=== PATIENT | male | born 1965 | race Caucasian/White ===

== ENCOUNTER 2021-12-28 10:54 | Emergency (ER) | payer OTHER, SELFPAY ==
[2021-12-28 10:55] VITALS: BP 169/102; PULSE 90; RESP 16; TEMP 36.3; O2SAT 99; BMI 27.4
--- NOTE | 2021-12-28 11:07 | CT_ITS ---
STUDY: CT ABDOMEN AND PELVIS WITH CONTRAST REASON FOR EXAM: Male, 56 years old. History of right inguinal hernia. RADIATION DOSAGE (If Supplied By Facility): CTDIvol = ( 12.71 ) mGy, DLP = ( 1342.89 ) mGycm TECHNIQUE: Transaxial images were obtained from the dome of the diaphragm to the symphysis pubis without oral contrast. IV 100mL Isovue-300 was administered. Sagittal and coronal images were reconstructed. Individualized dose optimization techniques were used for this CT. COMPARISON: None. FINDINGS: The visualized lung bases are unremarkable. The visualized portions of the heart are within normal limits. Normal liver. Normal gallbladder and extrahepatic biliary system. Normal spleen. Normal pancreas. Normal bilateral adrenal glands. Normal right kidney. Normal left kidney. There is a small hiatal hernia. Normal small intestine. There are multiple colonic diverticula consistent with diverticulosis. The appendix is visualized and appears normal. Normal abdominal aorta. Normal inferior vena cava. Normal retroperitoneum. A RENNER catheter is seen within the decompressed urinary bladder. Moderate sized right inguinal hernia containing nondistended small bowel loops. Disc space narrowing in the spondylosis in the lower dorsal spine. 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 CT/Abdomen/Pelvis W IV Cont ONLY IMPRESSION: Moderate sized right inguinal area containing nondilated small bowel loops.. Electronically Signed: Michele Larson MD at 12:50 EST ,
--- NOTE | 2021-12-28 11:09 | EDS_ITS ---
HPI HPI - GI History of Present Illness Chief Complaint: Abd Pain Narrative Narrative: Patient presents with suprapubic abdominal pain in the area of his right-sided inguinal hernia that he has had since this morning. He has had previous hernia repair remotely, but he and his states that it ripped. He has not had a repair for years and is not currently following up with a surgeon. He states he had a normal bowel movement this morning. He denies any fevers or chills. No nausea or vomiting. No hematuria or dysuria. He is complaining of sharp pain mainly in the suprapubic area from his bellybutton towards his groin. He does have known hernia in the right inguinal area. No exacerbating or alleviating factors. PFSH PFSH Medical History no medical history Home Medications tamsulosin 0.4 mg capsule (Flomax) 0.4 mg PO DAILY #14 caps 12/28/21 [Rx Last Taken Unknown] Allergy/AdvReac Type Severity Reaction Status Date / Time shellfish derived Allergy Anaphylaxis Verified 12/28/21 10:56 Surgical History no surgical history Social History Smoking Status: Never smoker ROS ROS ED ROS Narrative Constitutional: No fever, no chills. HEENT: No sore throat. No neck pain. No loss of vision. No rhinorrhea. Cardiovascular: No chest pain. No palpitations. No pedal edema. Respiratory: No cough, no shortness of breath. Abdominal: Positive suprapubic/periumbilical to groin abdominal pain. No nausea. No vomiting. Genitourinary: No dysuria. No hematuria. Musculoskeletal: No myalgias. No arthralgias. Neurologic: No headaches. No dizziness. No lightheadedness. Skin: No rash. No change in color. Psychiatric: No depression. No anxiety. EXAM Physical Exam Narrative Exam Narrative: Afebrile. Vital signs noted. HEENT: Normocephalic. Atraumatic. PERRL, EOMI. Neck soft and supple. No point tenderness or step off. Cardiovascular: Regular rate and rhythm. No murmurs, rubs, or gallops appreciated. Respiratory: No tachypnea. Lungs clear to auscultation bilaterally. Gastrointestinal: Abdomen soft, tenderness between umbilicus and top of penis, with normoactive bowel sounds. No rebound or guarding. No tenderness in right inguinal area. Genitourinary: No testicular tenderness or scrotal hernia palpated. Neurological: Awake. Alert. Nonfocal, nonlateralizing. Skin: No rash. Normal color. No pallor. Musculoskeletal: No pedal edema. Full range of motion extremities. Const Vital Signs: 12/28/21 10:55 12/28/21 12:07 Temperature 97.4 F L Temperature Source Temporal Pulse Rate 90 90 Respiratory Rate 16 16 Blood Pressure 169/102 H 142/98 H Blood Pressure Mean 124 112 Pulse Ox 99 99 Oxygen Delivery Method Room Air Room Air MDM MDM MDM Narrative Medical decision making narrative: Comprehensive work-up was pursued. I do feel CT imaging is indicated. He was administered normal saline bolus of 1 L along with morphine and ondansetron. Nurse performed a bladder scan. There were 750 mL of urine contained within. Chatman catheter was inserted with good relief of the patient's symptoms. He has a slightly elevated white count of 12.1 which I think is nonspecific, hemoglobin normal at 15.3 with hematocrit 41.9. Normal platelet count of 316. CMP is grossly normal except for glucose appropriately elevated at 109 with a normal anion gap of 10. LFTs are grossly normal with a normal alk phos of 74. Urinalysis shows no evidence of infection, 0 white cells with 5 ketones. I do not feel antibiotics are indicated. CT of the abdomen and pelvis with IV contrast does show the right inguinal hernia that is moderately sized. Of note, it was noted that there is collapse of T10. Patient denies any significant back pain but cannot necessarily recall a distinct injury to his back, but he has had multiple injuries over the years according to the patient and his . I do not feel that this is of any clinical significance currently. Dr. Ly has seen the patient in the emergency department and the hernia has reduced itself while the patient was lying supine. Patient states that he had initially let his hernia go for a long time before the initial repair, and states this is normal for him that when he will lie supine, his hernia will be reduced. I do feel that his abdominal pain was secondary to his urinary retention. He will be placed on Flomax and recommended that he follow-up with Dr. Boyer within 1 week's time. I feel he can be discharged safely home with follow-up for outpatient repair of his right inguinal hernia. Return instructions to the emergency department were reviewed. Disposition is discharged home in stable condition. Lab Data Attestation: I reviewed the patient's lab results. Labs: Laboratory Results - last 24 hr 12/28/21 12/28/21 12/28/21 11:30 11:30 12:00 WBC 12.1 H RBC 4.85 Hgb 15.3 Hct 41.9 MCV 86.4 MCH 31.5 MCHC 36.5 H RDW Std Deviation 37.2 RDW Coeff of [place] 11.9 Plt Count 316 MPV 8.4 Immature Gran % (Auto) 0.500 Neut % (Auto) 88.2 H Lymph % (Auto) 6.2 L [place] % (Auto) 4.7 Eos % (Auto) 0.2 Baso % (Auto) 0.2 Absolute Neuts (auto) 10.7 H Absolute Lymphs (auto) 0.75 L Nucleated RBC % 0 Sodium 139 Potassium 3.8 Chloride 104 Carbon Dioxide 25.0 Anion Gap 10 BUN 14 Creatinine 0.81 Estim Creat Clear Calc 91.89 Est GFR (MDRD) Af Amer 127 Est GFR (MDRD) Non-Af 105 BUN/Creatinine Ratio 17.3 Glucose 109 H Calcium 9.7 Total Bilirubin 0.80 AST 23 ALT 40 Alkaline Phosphatase 74 Total Protein 7.2 Albumin 4.0 Globulin 3.2 Albumin/Globulin Ratio 1.2 Urine Color Yellow Urine Clarity Clear Urine pH 8.0 Ur Specific [place] 1.010 Urine Protein Negative Urine Glucose (UA) Normal Urine Ketones 5 H Urine Occult Blood Negative Urine Nitrite Negative Urine Bilirubin Negative Urine Urobilinogen Normal Ur Leukocyte Esterase Negative Urine RBC 0 SEEN Urine WBC 0 SEEN Ur Squamous Epith Cells 0 SEEN Urine Bacteria 0 SEEN Urine Mucus 0 SEEN Radiography Diagnostic Testing: Clinical Impression(s) from Imaging Studies Abdomen/Pelvis CT 12/28/21 11:07 IMPRESSION: Moderate sized right inguinal area containing nondilated small bowel loops.. Electronically Signed: Michele Larson MD at 12:50 EST , Discharge Plan Triage Chief Complaint: Abd Pain ED Provider: Crescencio Rucker Dx/Rx/DC Orders Clinical Impression: Inguinal hernia, right, Acute urinary retention, Abdominal pain Instructions: ED Chatman Catheter, Care, ED Hernia (Adult), ED Urinary Retention, Male, ED Abdominal Pain Unkn Cause Male... Prescriptions: New tamsulosin [Flomax] 0.4 mg capsule 0.4 mg PO DAILY Qty: 14 0RF Primary Care Provider: Gaetano Mendoza Referrals: Ricardo Ly MD [Med Staff - Active Staff] - As soon as possible Evaristo Novak MD [Med Staff - Active Staff] - 1 Week Gaetano Mendoza MD [Primary Care Provider] - Disposition Disposition: Home, Self Care
[2021-12-28 11:37] LABS: Absolute Lymphocyte Count 0.75 X10^3/uL (0.83-4.51); Absolute Neutrophil Count 10.7 X10^3/uL (2.0-7.7); Basophil# 0.03 X10^3/uL; Basophil% 0.2 % (0-1); Eosinophil# 0.02 X10^3/uL; Eosinophils% 0.2 % (0-5); Hematocrit 41.9 % (40-54); Hemoglobin 15.3 g/dL (13.0-16.5); Lymphocyte # 0.75 X10^3/ul (0.83-4.51); Lymphocyte % 6.2 % (19-41); Mean Corp Hgb Conc 36.5 g/dL (32-36); Mean Corpuscular Hgb 31.5 pg (27.0-32.0); Mean Corpuscular Volume 86.4 fL (80-94); Mean Platelet Vol. 8.4 fl (6.2-12.0); Monocyte# 0.57 X10^3/uL; Monocyte% 4.7 % (0-10); NRBC Flagged by Analyzer 0 % (0-5); Neutrophil # 10.71 X10^3/uL (2.7-7.7); Neutrophil % 88.2 % (47-70); Platelet Count 316 K/mm3 (150-450); RBC Distribution Width CV 11.9 % (11.6-14.6); RBC Distribution Width SD 37.2 fl (35.1-43.9); Red Blood Count 4.85 M/mm3 (4.6-6.2); White Blood Count 12.1 K/mm3 (4.4-11.0)
[2021-12-28] MEDS: Morphine 4 MG/ML Syringe IV (11:42)
[2021-12-28] MEDS: Ondansetron 4 MG/2 ML Vial IV (11:42)
[2021-12-28] MEDS: 0.9% Normal Saline 1,000 ML 1000 ML IV (11:42)
[2021-12-28 11:50] LABS: ALB/GLOB Ratio 1.2 RATIO (0.9-2.4); AST(SGOT) 23 U/L (15-37); Alanine Aminotransfer ALT/SGPT 40 U/L (16-61); Alkaline Phosphatase 74 U/L (45-117); Anion Gap 10 (5-15); BUN 14 mg/dL (7-18); BUN/Creat Ratio 17.3 RATIO (10-20); Calcium,Total 9.7 mg/dL (8.5-10.1); Chloride 104 mmol/L (98-107); Creatinine, Serum 0.81 mg/dL (0.70-1.30); EST Glomerular Filtration Rate 105 mL/min (>60); Est Glom Filt Rate - Afr Amer 127 mL/min (>60); Estimated Creatinine Clearance 91.89 ml/min; Globulin 3.2 g/dL (2.2-4.2); Glucose 109 mg/dL (74-106); Potassium 3.8 mmol/L (3.5-5.1); Protein, Total 7.2 g/dL (6.4-8.2); Sodium Level 139 mmol/L (136-145)
[2021-12-28 12:07] VITALS: BP 142/98; PULSE 90; RESP 16; O2SAT 99
[2021-12-28 12:11] LABS: Bacteria 0 SEEN /hpf (None Seen); Mucous, Urine 0 SEEN /hpf (<or=2+); Red Blood Cells-Urine 0 SEEN /hpf (0-5); Squamous Epithelial Cells - UA 0 SEEN /hpf (0-5); White Blood Cells 0 SEEN /hpf (0-5)
[2021-12-28 12:12] LABS: Color, Urine Yellow (Yellow); Glucose, Dipstick Normal (Normal); Ketone-Dipstick 5 mg/dl (Negative); Leukocyte Esterase-Dipstick Negative /ul (Negative); Nitrite-Dipstick Negative (Negative); Occult Blood-Urine Negative /ul (Negative); Protein-Dipstick Negative (Negative); Urine Bilirubin Dipstick Negative (Negative); Urine Clarity Clear (Clear); Urine Urobilinogen Normal (Normal)
--- NOTE | 2021-12-28 13:15 | ED.RN ---
dr butterfield in to see pt.
== END 2021-12-28 14:10 | disposition home or self-care (01) ==
PROVIDERS: Emergency Provider Emergency Medicine; PCP Family Medicine; Visit Provider Emergency Medicine
DX: K40.90 Unilateral inguinal hernia, without obstruction or gangrene, not specified as recurrent (principal); R33.9 Retention of urine, unspecified; R10.9 Unspecified abdominal pain
CPT/HCPCS: 74177; 80053; 81001; 85025; 96361; 96374; 96375; 99283; J7030; Q9967; A4216; J2405

== ENCOUNTER 2022-02-18 11:15 | Day surgery (SDC) | payer OTHER, SELFPAY ==
[2022-02-18] VITALS (7 sets, daily range): BP systolic 88–113; BP diastolic 69–84; PULSE 58–72; RESP 12–18; TEMP 36.2–36.8; O2SAT 93–100; BMI 27.3
--- NOTE | 2022-02-18 11:26 | EKG12_ITS ---
Test Reason : PRE OP Blood Pressure : / mmHG Vent. Rate : 070 BPM Atrial Rate : 070 BPM P-R Int : 170 ms QRS Dur : 096 ms QT Int : 380 ms P-R-T Axes : 022 026 004 degrees QTc Int : 410 ms Normal sinus rhythm Normal ECG Confirmed by ARELI LUIS, LEXI ([id number]), deputy editor in chief NAREN LOCKE ([id number]) on 02/24/2022 10:07:26 AM Referred By: EYAD Confirmed By:LEXI SINGLETON MD
[2022-02-18] MEDS: Lactated Ringers 1,000 ML 15 ML IV ×2 (11:57→13:15)
--- NOTE | 2022-02-18 12:03 | PCM.HP.BLA ---
History and Physical Date of Admission: 02/18/22 Intake Vital Signs ? 12/28/2209:55 02/04/2208:51 Height 5 ft 6 in 5 ft 6 in Weight: 170 lb 170 lb 4 oz BMI 27.4 27.4 BP 169/102 H 135/93 H Blood Pressure Location ? Rt brachial Position ? Sitting Respiration 16 18 Pulse 90 78 Pulse Source ? Monitor Temp 97.4 F L 98 F Temp Source Temporal Temporal Pulse Oximetry (%) 99 98 Oxygen Delivery Method ? room air Intake Visit Reasons:?R Inguinal Hernia/ER F/U Chief Complaint: R Inguinal hernia consult Is patient in pain?: No Allergies shellfish derived Allergy (Verified 02/03/22 08:53) Anaphylaxis PFSH Surgical History?(Updated 02/03/22 @ 08:49 by Shonda Meza) H/O hand surgery History of colonoscopy Family History?(Updated 02/03/22 @ 08:50 by Shonda Meza) Mother Heart disease Social History?(Updated 02/03/22 @ 08:51 by Shonda Meza) Smoking Status:? Never smoker alcohol intake:? never substance use type:? does not use HPI HPI HPI: Patient is a 56-year-old male here for right inguinal hernia.? Patient is at his hernia for many years and it does reduce with lying down.? Patient had an open right inguinal hernia repair with mesh in the early . ROS General General: Yes weight change; No appetite, fatigue, colon cancer, breast cancer or weakness HEENT HEENT: No difficulty swallowing, eye injury, eye surgery, swollen glands or hoarseness Endo Endocrine: No thyroid disease, diabetes mellitus, thyroid cancer, Hair loss, heat intolerance or cold intolerance Skin Skin: No rash or changing moles Breast Breast: No left breast lump, right breast lump, nipple discharge, breast pain, abnormal mammogram, abnormal US or breast enlargement Musc Musculoskeletal: No back problems, arthritis, rheumatoid arthritis, gout or joint pain Cardio Cardiovascular: No murmur, pacemaker, heart disease, atrial fibrillation, high blood pressure, heart attack, heart stent, palpitations, shortness of breat with exertion or chest pain Psych Psychiatric: No depression, anxiety or hearing voices Resp Respiratory: No shortness of breath, No sleep apnea, No cough, No COPD, No asthma, No emphysema and No wheezing Gastro Gastrointestinal: No abdominal pain, No nausea or vomiting, No diarrhea, No constipation, No blood in stool, No acid reflux, No hemorrhoids, No ulcers, No gallbladder problem and No black,tarry stools [place] Hematologic: No blood thinners, No blood disorders, No bleeding, No anemia and No blood clots Neuro Neurologic: No system reviewed and no additional complaints, except as documented, No as per HPI, No abnormal gait, No abnormal hearing, No abnormal movements, No abnormal speech, No behavioral changes, No burning sensations, No confusion, No convulsions, No disequilibrium, No dizziness, No localized weakness, No frequent falls, No headache(s), No lack of coordination, No loss of vision, No memory loss, No numbness, No other visual disturbances, No radicular pain, No restless legs, No sensory deficit, No syncope, No tingling, No tremor(s), No weakness and No other Exam Const General: cooperative Orientation: alert and oriented x3 HENMT Head: normal to inspection Neck Neck: normal visual inspection and full ROM Chest Chest palpation & inspection: normal inspection of the chest Resp Effort & Inspection: normal respiratory effort Auscultation: clear to auscultation bilaterally Cardio Rate: regular rate Rhythm: regular rhythm GI Inspection: non-distended Palpation: soft, hernia indirect inguinal on the right and nontender Skin General: no rashes or lesions noted Neuro General: patient alert and patient oriented x3 Extrem General: full ROM Psych Appearance: grossly normal Mental Status: mental status grossly normal Assessment and Plan Assessment and Plan (1) Recurrent right inguinal hernia: ?Status:?Acute ?Plan: The patient was recently in the emergency room with right lower quadrant pain and difficulty urinating.? Patient was started on Flomax.? The patient had spontaneous reduction of his hernia and following up for discussion of repair.? Patient had a repair back in the 90s so this is a recurrent right inguinal hernia.? CT scan reveals it does contain small bowel.? I discussed robotic assisted laparoscopic inguinal hernia repair with mesh.? I discussed the procedure in detail as well as the risks including but not limited to bleeding, infection, injury to other organs like the blood supply to the testicle or bowel or ureter.? Patient understands all the risks and is when to proceed.? I also discussed repairing the opposite side if a hernia is present and the patient would like to proceed with that if it is present.? I also discussed possible conversion to an open procedure if laparoscopic procedure is not possible.? Patient understands all the risks and will be scheduled for robotic assisted laparoscopic right inguinal hernia repair with mesh. Ricardo Ly MD Pager: [facility] [address] [place] [address], [address] [place] [phone] Office: I have examined the patient and the H&P has been reviewed. There are no clinical changes since date of exam.
[2022-02-18] MEDS: Cefazolin 2 GM in 0.9% Normal Saline 100 ML IV (12:58)
--- NOTE | 2022-02-18 14:08 | PCM.OPRPT ---
Report of Operation Date of Procedure: 02/18/22 Pre-Operative Diagnosis: Recurrent right inguinal hernia Post-Operative Diagnosis: Same Surgery/Procedure Performed:: Robotic assisted laparoscopic right inguinal hernia repair with mesh Description of Surgical Findings:: Direct and indirect defect on the right side Description of Procedure: Patient was brought back the operating room and general anesthesia was induced. The abdomen was prepped and draped in usual sterile fashion. An incision was made superior to the umbilicus and deepened to the fascia which was grasped and elevated and a Veress needle was placed into the abdomen and a drop test was performed. The abdomen was then insufflated to 15 mmHg and the needle was removed and a port was placed into the abdomen. Camera was placed through this port and the abdomen was inspected and there were no injuries. The patient was placed in a steep Trendelenburg position and a. The patient had right inguinal hernia with no recurrence on the left. Next under direct visualization a right lateral and left lateral port were placed and then the robot was docked. There was a band of adhesion from the right lower quadrant incision to mesentery of small bowel with small bowel wrapped around it. The band was lysed using electrocautery. Next an incision was made in the peritoneum and dissection was carried inferiorly until the hernia sacs were encountered and reduced. Next after there was sufficient dissection a 12 x 15 cm ProGrip mesh was unfolded over the right groin area covering both hernia defects. There was good coverage and a tucked nicely behind the bladder. There was old mesh in the right groin which was kept on the peritoneal side and the new mesh was placed behind it. Next the peritoneum was reapproximated using a running 3 OV lock suture completely covering the mesh. The abdomen was inspected once more and then the ports were removed and the abdomen was allowed to desufflate. The incisions were injected with local anesthetic and closed with interrupted 4-0 Monocryl suture. Steri-Strips and bandages were applied. The scrotum was checked at the end the case and contained both testicles. Patient was awoken and taken to PACU in stable condition and tolerated the procedure well. Grafts/Implants Used: 12 x 15 cm ProGrip mesh in the right groin Admit VTE Documentation VTE Mechan Device Prophylaxis: SCD's
--- NOTE | 2022-02-18 14:11 | DCINST_ITS ---
Discharge Instructions Procedure Hernia Diet Discharge Diet: Light diet - advance as tolerated Activity Discharge Activity: May Not Drive (for 2-3 days or while taking narcotic pain meds.) and May Shower (with the bandage in place 1-2 days after surgery.) Lifting Restrictions: 20 pounds for 6 weeks. Additional Activity Instructions:: Climbing stairs is fine, walking is encouraged. Sitting in bed may be uncomfortable. Sitting up using your lateral muscles (sitting up sideways) is usually more comfortable. Do not drive, work heavy equipment of sign legal documents for 24 hours. If your hernia repair was an inguinal repair, you may have scrotal swelling, an ice pack and/or athletic support can provide more comfort. Pain medications may cause nausea, you should typically eat light foods as you take your pain medications. Pain medications may also cause constipation. If you have difficulty with this, discuss with your doctor. Dressing / Incision Call your doctor if your incision/area has: Continuous Slow Oozing, Sudden Increased Bleeding, Increased Pain/ Swelling, Increased Redness and Foul Smelling Discharge Call your doctor if you observe: Fever of 101 or Higher Suture Line Care: Avoid Pulling/Pushing and Avoid Pinching/Bending Remove Dressing in: 2 days (Remove clear bandages in 2 days, remove Steri-Strips in 7 to 10 days.) Cleanse incision/area with: Soap & Water Follow Up Care Please Follow Up With: Ricardo Ly MD When: Please call to schedule 2 week follow up appointment. [phone] Test Results: Test results from this visit will be discussed in further detail at your follow- up appointment, if applicable. Discharge Plan Admission Attending Provider: Ricardo Ly Primary Care Provider: Gaetano Mendoza Instructions Additional Instructions / Restrictions: Ibuprofen and Tylenol alternating for pain. Oxycodone for breakthrough. Discharge Orders/Prescriptions Prescriptions: New oxycodone 5 mg tablet 5 - 10 mg PO Q6H PRN (Reason: pain) 5 Days Qty: 10 0RF No Action tamsulosin [Flomax] 0.4 mg Capsule 0.4 mg PO QHS Referrals / Follow Up: Gaetano Mendoza MD [Primary Care Provider] - Disposition Disposition (needs filled in before D/C Order can be placed): Home, Self Care
[2022-02-18] MEDS: Acetaminophen 325 MG Tablet 650 MG PO (15:28)
== END 2022-02-18 16:16 | disposition home or self-care (01) ==
LOC: SDC 11:20 → AC 11:20
PROVIDERS: PCP Family Medicine; Visit Provider Surgery
PROC: (CPT 49650; principal; 2022-02-18 12:40)
DX: K40.91 Unilateral inguinal hernia, without obstruction or gangrene, recurrent (principal); F17.200 Nicotine dependence, unspecified, uncomplicated
CPT/HCPCS: 49650; 00840; 93005; J7120; J2405

== ENCOUNTER 2023-11-09 12:41 | Inpatient (IN) | payer OTHER, SELFPAY ==
[2023-11-09] VITALS (9 sets, daily range): BP systolic 119–178; BP diastolic 57–100; PULSE 67–103; RESP 14–24; TEMP 36–36.9; O2SAT 93–99; BMI 27.7; BMI 26.4
--- NOTE | 2023-11-09 12:46 | RAD_ITS ---
STUDY: X-RAY CHEST REASON FOR EXAM: Male, 58 years old. Chest pain TECHNIQUE: Single AP portable view of the chest. COMPARISON: Comparison is made with prior study dated November 14, 2008. FINDINGS: EKG electrodes are seen. The lungs are clear and expanded. There is no demonstrated pleural abnormality. Normal size heart. Normal mediastinum and hilary. Normal visualized pulmonary arteries. There is atherosclerotic tortuosity of the aortic arch and descending thoracic aorta. There are diffuse degenerative changes of the visualized thoracic spine. Normal visualized ribs, clavicles, and shoulders. Hiatal hernia. RAD/Chest 1 View (Portable) IMPRESSION: Hiatal hernia. The lungs are clear. Electronically Signed: Michele Larson MD at 13:42 EDT ,
--- NOTE | 2023-11-09 12:46 | EKG12_ITS ---
Test Reason : CP Blood Pressure : / mmHG Vent. Rate : 095 BPM Atrial Rate : 095 BPM P-R Int : 172 ms QRS Dur : 096 ms QT Int : 366 ms P-R-T Axes : 027 045 025 degrees QTc Int : 459 ms Normal sinus rhythm Normal ECG Confirmed by Bowen Aguilera ([id number]), staff editor NAREN LOCKE ([id number]) on 11/14/2023 10:40:40 AM Referred By: UG/TB Confirmed By:Bowen Aguilera
[2023-11-09 12:57] LABS: Absolute Lymphocyte Count 2.01 X10^3/uL (0.83-4.51); Absolute Neutrophil Count 5.6 X10^3/uL (2.0-7.7); Basophil# 0.04 X10^3/uL; Basophil% 0.5 % (0-1); Eosinophil# 0.04 X10^3/uL; Eosinophils% 0.5 % (0-5); Hematocrit 45.4 % (40-54); Hemoglobin 16.1 g/dL (13.0-16.5); Lymphocyte # 2.01 X10^3/ul (0.83-4.51); Lymphocyte % 24.2 % (19-41); Mean Corp Hgb Conc 35.5 g/dL (32-36); Mean Corpuscular Hgb 30.6 pg (27.0-32.0); Mean Corpuscular Volume 86.1 fL (80-94); Mean Platelet Vol. 8.4 fl (6.2-12.0); Monocyte% 7.2 % (0-10); NRBC Flagged by Analyzer 0 % (0-5); Neutrophil # 5.58 X10^3/uL (2.7-7.7); Neutrophil % 67.1 % (47-70); Platelet Count 377 K/mm3 (150-450); RBC Distribution Width CV 11.9 % (11.6-14.6); RBC Distribution Width SD 37.6 fl (35.1-43.9); Red Blood Count 5.27 M/mm3 (4.6-6.2); White Blood Count 8.3 K/mm3 (4.4-11.0)
[2023-11-09 13:13] LABS: Anion Gap 10 (5-15); BUN 12 mg/dL (7-18); BUN/Creat Ratio 14.1 RATIO (10-20); Calcium,Total 10.2 mg/dL (8.5-10.1); Chloride 104 mmol/L (98-107); Creatinine, Serum 0.85 mg/dL (0.70-1.30); EST Glomerular Filtration Rate 98 mL/min (>60); Est Glom Filt Rate - Afr Amer 119 mL/min (>60); Glucose 118 mg/dL (74-106); Potassium 3.5 mmol/L (3.5-5.1); Sodium Level 134 mmol/L (136-145); Troponin-I HS (w/2H Reflex) 6 pg/mL (3.0-78.0)
[2023-11-09] MEDS: Aspirin 81 MG TAB.CHEW 324 MG PO (13:16)
--- NOTE | 2023-11-09 14:28 | EDS_ITS ---
HPI <Dr. Wing Flanagan MD - Last Filed: 11/09/23 15:56> History of Present Illness Chief Complaint: Chest Pain Detail of Chief Complaint: Chest pain at work sharp pressure with nausea and diaphoresis Informant: patient and spouse/S.O. Onset/Context/Timing Onset: Today and Hours Activity at onset: sudden and onset (During strenuous activity at work. 3 minutes after activity) Timing: Intermittent Quality: Positive for Pressure and Sharp Location: Substernal Current Severity: Gone Maximum Severity: Severe Worsened By: Exertion Relieved By: Rest Associated Symptoms: Positive for Nausea, Diaphoresis, Dyspnea and - (According to future son-in-law he came into the shop and did not look well. He was sweaty.) Narrative Narrative: Patient is a 58-year-old male. He has history of iron deficiency anemia, GERD, essential hypertension, restless leg syndrome and migraine headaches who presents from work because of chest sharp pressure sensation with diaphoresis nausea and shortness of breath. This came on with exertional activity. Stop 3 minutes after activity. I did radiate to both shoulders. He also states it went down his left arm. He has had 2 other events prior to today. 1 was a holiday weekend and last week. The episode occurred over the weekend was when he was shoveling sand. He was admitted to [facility]. He had a nuclear stress test that was read as negative. I did get a copy of the stress test. This event was more significant and with strenuous activity. Recent Illness/Hospitalization: Yes (HPI narrative) CVD Risk Factors: Positive for Hypertension; Negative for Diabetes, Hypercholesterolemia or Family History 1' </=55 PE Risk Factors: Negative for Recent Travel/Surgery, Recent Immobilization, Prior DVT or PE, Cancer or OCP + Smoking + >/=35 TAD Risk Factors: Positive for Hypertension; Negative for Marfan's Syndrome or Family History [facility] <Dr. Wing Flanagan MD - Last Filed: 11/09/23 15:56> [facility] Medical History Obesity (BMI 30.0-34.9) Incisional hernia Hypokalemia Atypical chest pain Iron deficiency anemia Elevated PSA GERD (gastroesophageal reflux disease) Essential (primary) hypertension Lightheadedness SOB (shortness of breath) Osteoarthritis of left knee Left knee pain Arthritis Restless legs Migraine headache Chewing tobacco nicotine dependence Home Medications ?Medication ?Instructions ?Recorded ?Last Taken ?Type NK 11/09/23 Unknown History Allergy/AdvReac Type Severity Reaction Status Date / Time shellfish derived Allergy Anaphylaxis Verified 02/25/23 12:55 Family History Mother Heart disease Diabetes Hypertension Father Cancer Kidney disease Surgical History Hx of appendectomy Hx of arthroscopy of shoulder Hx of inguinal hernia repair H/O hand surgery Social History Smoking Status: Former smoker alcohol intake: never substance use type: does not use ROS <Dr. Wing Flanagan MD - Last Filed: 11/09/23 15:56> ROS ED Constitutional Constitutional ED: Denies chills, fever(s), subjective or sweats Eyes Eyes: Reports none ENT ENT ED: Denies ear pain or rhinorrhea Cardiovascular Cardiovascular: Reports as per HPI; Denies orthopnea or paroxysmal nocturnal dyspnea Respiratory/Chest Respiratory/Chest: Reports dyspnea; Denies cough, orthopnea or paroxysmal nocturnal dyspnea Gastrointestinal Gastrointestinal: Reports nausea; Denies abdominal pain or vomiting Genitourinary Genitourinary ED: Denies dysuria, hematuria or urinary frequency Musculoskeletal Musculoskeletal: Denies back pain or neck pain Integumentary Denies rash Neurologic Neurologic: Denies weakness Hematologic/Lymphatic Hematologic/Lymphatic: Denies easy bleeding or easy bruising EXAM <Dr. Wing Flanagan MD - Last Filed: 11/09/23 15:56> Physical Exam Const Vital Signs: 11/09/23 12:42 11/09/23 13:06 11/09/23 14:28 Temperature 97.8 F 98.4 F Temperature Source Temporal Oral Pulse Rate 103 H 90 72 Respiratory Rate 24 H 16 16 Blood Pressure 178/100 H 137/97 H 126/84 H Blood Pressure Mean 126 110 98 Pulse Ox 98 96 96 Oxygen Delivery Method Room Air Room Air 11/09/23 15:26 11/09/23 16:35 Temperature Temperature Source Pulse Rate 67 67 Respiratory Rate 14 Blood Pressure 123/91 H 122/87 H Blood Pressure Mean 101 98 Pulse Ox 93 Oxygen Delivery Method Room Air Positive well nourished General Appearance ED: Negative for pallor HEENT Reports moist mucous membranes normocephalic and atraumatic Eyes PERRL and EOMs intact bilaterally General Eye ED: Negative for pale conjunctiva or scleral icterus Neck no lymphadenopathy, supple and no JVD Chest Wall inspection of chest normal and palpation of chest normal Resp normal respiratory effort and clear to auscultation bilaterally Cardio regular rate, regular rhythm, S1 normal heart sound, S2 normal heart sound and no murmurs GI normal to inspection, nondistended, normoactive bowel sounds, soft to palpation, non-tender, non-distended and no masses; Negative for hepatosplenomegaly Back/Spine no CVA tenderness and no thoracic nor lumbar tenderness Extremity normal to inspection General Extremety ED: Negative for edema or pulses abnormal General Extremity: Negative for edema or pulses abnormal Neuro oriented x3 and CN's II-XII intact bilaterally Sensorium / Orientation: awake and alert Motor Exam: strength 5/5 throughout Psych mental status grossly normal Skin no rashes or lesions noted and no wounds General Skin Exam: Negative for jaundice or pallor <Dr. Selin Cherry DO - Last Filed: 11/09/23 17:16> Physical Exam Const Vital Signs: 11/09/23 12:42 11/09/23 13:06 11/09/23 14:28 Temperature 97.8 F 98.4 F Temperature Source Temporal Oral Pulse Rate 103 H 90 72 Respiratory Rate 24 H 16 16 Blood Pressure 178/100 H 137/97 H 126/84 H Blood Pressure Mean 126 110 98 Pulse Ox 98 96 96 Oxygen Delivery Method Room Air Room Air 11/09/23 15:26 11/09/23 16:35 Temperature Temperature Source Pulse Rate 67 67 Respiratory Rate 14 Blood Pressure 123/91 H 122/87 H Blood Pressure Mean 101 98 Pulse Ox 93 Oxygen Delivery Method Room Air <Dr. Wing Flanagan MD - Last Filed: 11/09/23 15:56> Heart Score History: Moderately Suspicious ECG: Normal Age: >45 - <65 years Risk Factors: 1 or 2 Risk Factors Score: 3 <Dr. Selin Cherry DO - Last Filed: 11/09/23 17:16> Heart Score Score: 3 MDM <Dr. Wing Flanagan MD - Last Filed: 11/09/23 15:56> MDM MDM Narrative Medical decision making narrative: The respiratory therapist who performed his EKG says he looks diamond in color and was diaphoretic. I went to see him immediately in triage. He still was complaining of discomfort. Cardiac chest pain order set was initiated by nursing staff since he is still in triage. Once he was brought back to a room I saw him. His EKG without pain is normal. Rate is 95. Patient was treated with aspirin. Patient has a concerning story. Will contact cardiology. My opinion patient should be admitted and have a cardiac catheterization done. History & Record Review Discussion w/independent historian: Patient and Significant other Lab Data Attestation: I reviewed the patient's lab results. Lab results narrative: CBC, BMP and first troponin are normal. Labs: Laboratory Results - last 24 hr 11/09/23 11/09/23 12:42 14:30 WBC 8.3 RBC 5.27 Hgb 16.1 Hct 45.4 MCV 86.1 MCH 30.6 MCHC 35.5 RDW Std Deviation 37.6 RDW Coeff of Jefferson 11.9 Plt Count 377 MPV 8.4 Immature Gran % (Auto) 0.500 Neut % (Auto) 67.1 Lymph % (Auto) 24.2 Edwards % (Auto) 7.2 Eos % (Auto) 0.5 Baso % (Auto) 0.5 Absolute Neuts (auto) 5.6 Absolute Lymphs (auto) 2.01 Nucleated RBC % 0 Sodium 134 L Potassium 3.5 Chloride 104 Carbon Dioxide 20.0 L Anion Gap 10 BUN 12 Creatinine 0.85 Est GFR (MDRD) Af Amer 119 Est GFR (MDRD) Non-Af 98 BUN/Creatinine Ratio 14.1 Glucose 118 H Calcium 10.2 H Troponin I High Sens 6 6 Radiography Chest X-Ray - ED: Read by ED Physician (There is evidence of a hiatal hernia. Lung parenchyma is normal. Cardiac size is normal. Osseous structures are unremarkable.) Diagnostic Testing: Clinical Impression(s) from Imaging Studies Chest X-Ray 11/09/23 12:46 IMPRESSION: Hiatal hernia. The lungs are clear. Electronically Signed: Michele Larson MD at 13:42 EDT , EKG Initial EKG: Attestation: I personally reviewed and interpreted this EKG as follows: Interpretation: Sinus Rhythm (Rate is 95. EKG is normal. NC interval is under 72 ms. Cures duration 96 ms. QT duration 306 6 ms. [place] is normal.) <Dr. Selin Cherry, DO - Last Filed: 11/09/23 17:16> [facility] Narrative Medical decision making narrative: The respiratory therapist who performed his EKG says he looks diamond in color and was diaphoretic. I went to see him immediately in triage. He still was complaining of discomfort. Cardiac chest pain order set was initiated by [facility] staff since he is still in triage. Once he was brought back to a room I saw him. His EKG without pain is normal. Rate is 95. Patient was treated with aspirin. Patient has a concerning story. Will contact cardiology. My opinion patient should be admitted and have a cardiac catheterization done. Jo Ann: Patient signed out to me pending delta troponin. Troponin stable. Regardless p atient will be admitted for likely cardiac catheterization. Case is discussed with Dr. Medina as well as admitting physician, Dr. Lutz. At this time patient does not require emergent cath. Lab Data Labs: Laboratory Results - last 24 hr 11/09/23 11/09/23 12:42 14:30 WBC 8.3 RBC 5.27 Hgb 16.1 Hct 45.4 MCV 86.1 MCH 30.6 MCHC 35.5 RDW Std Deviation 37.6 RDW Coeff of Jefferson 11.9 Plt Count 377 MPV 8.4 Immature Gran % (Auto) 0.500 Neut % (Auto) 67.1 Lymph % (Auto) 24.2 Edwards % (Auto) 7.2 Eos % (Auto) 0.5 Baso % (Auto) 0.5 Absolute Neuts (auto) 5.6 Absolute Lymphs (auto) 2.01 Nucleated RBC % 0 Sodium 134 L Potassium 3.5 Chloride 104 Carbon Dioxide 20.0 L Anion Gap 10 BUN 12 Creatinine 0.85 Est GFR (MDRD) Af Amer 119 Est GFR (MDRD) Non-Af 98 BUN/Creatinine Ratio 14.1 Glucose 118 H Calcium 10.2 H Troponin I High Sens 6 6 Radiography Diagnostic Testing: Clinical Impression(s) from Imaging Studies Chest X-Ray 11/09/23 12:46 IMPRESSION: Hiatal hernia. The lungs are clear. Electronically Signed: Michele Larson MD at 13:42 EDT , Discharge Plan Dx/Rx/DC Orders Clinical Impression: Exertional chest pain, Essential (primary) hypertension, GERD (gastroesophageal reflux disease), Hernia, hiatal Disposition Disposition: Acute Care Hospital [facility]
[2023-11-09 14:52] LABS: Reflex Troponin-HS? (from REC) Y
--- NOTE | 2023-11-09 15:26 | ED.RN ---
called lab to inquire about troponin label. bloodwork has been sent to lab
--- NOTE | 2023-11-09 15:58 | ED.RN ---
called lab at [phone] to inquire again about troponin. said they will run lab.
--- NOTE | 2023-11-09 16:04 | ED.RN ---
3rd call to lab to inquire about troponin results. states will run troponin now.
[2023-11-09 16:19] LABS: Troponin-I HS 6 pg/mL (3.0-78.0)
--- NOTE | 2023-11-09 17:04 | PCM.HP.STD ---
HPI - General General Date of Admission: 11/09/23 Date of Service: 11/09/23 Chief Complaint: Intermittent chest pain HPI Narrative TEODORA LEO, is a 58 M who presented to the emergency department at [facility] on 11/09/2023 due to intermittent diaphoresis, shortness of breath, and chest pain. His assists with his history and they report that he first had symptoms on Labor Day. 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 It aborted and he had no symptoms for about a week and then he had a recurrence of symptoms which led him to go to the emergency department at all. Symptoms at that time were the same however they occurred while he was at rest. He was admitted and a stress test and an echocardiogram were performed at that time. Echocardiogram showed an EF of 55 to 60% with no wall motion abnormalities and stress test was negative for any inducible ischemia. He was discharged home. That was done on 11/01/2023. Today he had a recurrent episode that again occurred while he was at work but doing minimal exertion. Symptoms were the same as previous. He reported that the initially put him on blood pressure medication is he had a blood pressure spike however then he was removed from blood pressure medication as it dropped his blood pressure too much. He states that he has a family history of coronary disease on his father side. His father's first event he believes was when his father was in his 60s. He does indicate he has been under stress lately as his daughter is getting on Tuesday. At the present time he is having no symptoms. Vital signs on presentation showed a temperature of 97.8, heart rate 103 with repeated 72, blood pressure initially was 178/100 with repeat at 137/97, respiratory rate was 16 and oxygen saturations were 98% on room air. CBC is unremarkable. Chemistry panel shows only very mild hyponatremia with a sodium of 134, renal function is normal but patient does seem to be mildly dehydrated as his serum bicarb is 20 with a calcium of 10.2. Troponin were normal x 2 at 6 and 6 respectively. EKG showed normal sinus rhythm with normal intervals and no ST-T wave changes concerning for acute ischemia. Chest x-ray showed hiatal hernia and lungs were clear. [facility] Medical History Former smoker Obesity (BMI 30.0-34.9) Incisional hernia Hypokalemia Atypical chest pain Iron deficiency anemia Elevated PSA GERD (gastroesophageal reflux disease) Essential (primary) hypertension Lightheadedness SOB (shortness of breath) Osteoarthritis of left knee Left knee pain Arthritis Restless legs Migraine headache Chewing tobacco nicotine dependence Home Medications ?Medication ?Instructions ?Recorded ?Last Taken ?Type NK 11/09/23 Unknown History Allergy/AdvReac Type Severity Reaction Status Date / Time shellfish derived Allergy Anaphylaxis Verified 02/25/23 12:55 Family History (Updated 11/09/23 @ 20:[address] Alejandra Lutz DO) Mother Heart disease Diabetes Hypertension Father Cancer Kidney disease Heart disease Surgical History Hx of appendectomy Hx of arthroscopy of shoulder Hx of inguinal hernia repair H/O hand surgery Social History Smoking Status: Former smoker alcohol intake: never substance use type: does not use ROS Constitutional Constitutional: Reports fatigue and weakness; Denies anorexia, change in weight, chills, fever(s), malaise, night sweats or other Eyes Eyes: Denies blurry vision, change in eye color, change in vision, discharge from eye(s), double vision, erythema, eye pain, loss of vision or other ENT HEENT: Denies abnormal hearing, dysphagia, ear pain, epistaxis, headache(s), hearing loss, nasal congestion, nasal discharge, post nasal drip, sinus pressure, sore throat or other Cardiovascular Cardiovascular: Reports chest pain, dyspnea on exertion, lightheadedness and other Details: Presyncope/diaphoresis ; Denies claudication, edema, orthopnea, palpitations, paroxysmal nocturnal dyspnea, rapid heart rate or syncope Respiratory/Chest Respiratory/Chest: Reports shortness of breath with exertion; Denies cough, dyspnea, excessive phlegm production, hemoptysis, productive cough, shortness of breath at rest, wheezing or other Gastrointestinal Gastrointestinal: Denies abdominal pain, coffee ground emesis, constipation, diarrhea, dyspepsia, hematemesis, hematochezia, loose stools, melena, nausea, vomiting or other Genitourinary Genitourinary: Denies burning urination, difficulty urinating, dysuria, hematuria, nocturia, urinary frequency, urinary hesitancy, urinary incontinence, urinary urgency or other Musculoskeletal Musculoskeletal: Denies arthralgias, back pain, joint pain, joint stiffness, joint swelling, myalgias, neck pain or other Neurologic Neurologic: Denies abnormal gait, abnormal speech, confusion, disequilibrium, dizziness, focal weakness, headache(s), numbness, paresthesias, seizure-like activity, seizures, syncope, tingling, tremor(s) or other Psychiatric Psychiatric: Denies anxiety, depression, homicidal ideation, suicidal ideation or other Endocrine Endocrinology: Denies change in body appearance, cold intolerance, excessive sweating, heat intolerance, polydipsia, polyuria or other Hematologic/Lymphatic Hematologic/Lymphatic: Denies anemia, easy bleeding, easy bruising, lymphadenopathy or other Allergic/Immunologic Allergic/Immunologic: Denies rhinitis, hives, eczemia, asthma or other Vital Signs Vital Signs Vital Signs: 11/09/23 12:42 11/09/23 13:06 11/09/23 14:28 Temperature 97.8 F 98.4 F Temperature Source Temporal Oral Pulse Rate 103 H 90 72 Respiratory Rate 24 H 16 16 Blood Pressure 178/100 H 137/97 H 126/84 H Blood Pressure Mean 126 110 98 Pulse Ox 98 96 96 Oxygen Delivery Method Room Air Room Air 11/09/23 15:26 11/09/23 16:35 Temperature Temperature Source Pulse Rate 67 67 Respiratory Rate 14 Blood Pressure 123/91 H 122/87 H Blood Pressure Mean 101 98 Pulse Ox 93 Oxygen Delivery Method Room Air Weight Weight: 78 kg Body Mass Index (BMI) 27.7 Physical Exam Narrative Patient is currently asymptomatic Const alert, oriented x3, no apparent distress, average body habitus, healthy appearing and well nourished Constitutional Narrative: Upper middle-aged white male, sitting up in bed, at bedside, currently appears comfortable, nontoxic General Appearance: cooperative HEENT normocephalic, head/scalp atraumatic, hearing grossly normal bilaterally and moist oral mucous membranes HEENT Narrative: Mallampati 2, no thrush, dentition is good Eyes EOMs intact bilaterally and conjunctivae normal Eyes Narrative: No scleral icterus Neck no lymphadenopathy and supple Neck Narrative: Trachea trachea midline, no thyroid enlargement noted Resp normal respiratory effort, no use of accessory muscles and clear to auscultation bilaterally Auscultation: Negative for rales, rhonchi or wheezes Cardio regular rate, regular rhythm, S1 normal heart sound, S2 normal heart sound, no murmurs, no rub, no gallops and no clicks GI normal to inspection, nondistended, normoactive bowel sounds, soft to palpation and non-tender Extremity no clubbing, cyanosis or edema Extremity Narrative: Radial pulses 2+ laterally Neuro oriented x3, moves all extremities and no focal motor deficits Speech: speech normal Psych affect normal Psych Narrative: Eye contact is good patient interacts appropriately Results Lab / Micro Data 11/09/23 12:42 11/09/23 12:42 Labs: Laboratory Results - last 24 hr 11/09/23 12:42: WBC 8.3, RBC 5.27, Hgb 16.1, Hct 45.4, MCV 86.1, MCH 30.6, MCHC 35.5, RDW Std Deviation 37.6, RDW Coeff of Jefferson 11.9, Plt Count 377, MPV 8.4, Immature Gran % (Auto) 0.500, Neut % (Auto) 67.1, Lymph % (Auto) 24.2, [place] % (Auto) 7.2, Eos % (Auto) 0.5, Baso % (Auto) 0.5, Absolute Neuts (auto) 5.6, Absolute Lymphs (auto) 2.01, Nucleated RBC % 0, Sodium 134 L, Potassium 3.5, Chloride 104, Carbon Dioxide 20.0 L, Anion Gap 10, BUN 12, Creatinine 0.85, Est GFR (MDRD) Af Amer 119, Est GFR (MDRD) Non-Af 98, BUN/Creatinine Ratio 14.1, Glucose 118 H, Calcium 10.2 H, Troponin I High Sens 6 11/09/23 14:30: Troponin I High Sens 6 Imaging Radiology Impression Chest X-Ray 11/09/23 12:46 IMPRESSION: Hiatal hernia. The lungs are clear. Electronically Signed: Michele Larson MD at 13:42 EDT , Assessment & Plan Assessment/Plan (1) Unstable angina: (2) Hyperglycemia: PLAN: Plan Unstable angina/presyncope -Echocardiogram done recently at [facility] below with an EF of 50 to 65% and no wall motion abnormality -Stress test on [facility] with no inducible ischemia on 11/01/2023 -Check A1c -Cycle cardiac enzymes -Check lipid panel -Start baby aspirin -Start metoprolol 12.5 mg p.o. twice daily -Start high intensity dose statin 80 mg daily -Consult cardiology for consideration for cardiac catheterization -If cardiac catheterization negative will likely need event monitor at discharge Hyperglycemia -Blood sugar elevated however this is nonfasting -Check hemoglobin A1c -No other intervention at this time Hiatal hernia -Found incidentally on his chest x-ray -Patient asymptomatic History of recurrent right inguinal hernia -Repair with mesh in 2021--> Dr. Ly -No current issues History of tobacco abuse -Remote DVT prophylaxis -Subcu Lovenox CODE STATUS Full code Charges/Coding Visit Charges Inpatient E&M: 54296 Init Hosp L2
--- NOTE | 2023-11-09 17:38 | NURSING ---
PCU OBS [place] CHEST PAIN
[2023-11-09 18:57] LABS: Hemoglobin A1c 5.4 % (3.8-5.6)
--- NOTE | 2023-11-09 20:57 | EKG12_ITS ---
Test Reason : MORNING EKG Blood Pressure : / mmHG Vent. Rate : 053 BPM Atrial Rate : 053 BPM P-R Int : 186 ms QRS Dur : 100 ms QT Int : 408 ms P-R-T Axes : 040 047 028 degrees QTc Int : 382 ms Sinus bradycardia Otherwise normal ECG When compared with ECG of 09-NOV-2023 21:23, MANUAL COMPARISON REQUIRED, DATA IS UNCONFIRMED Confirmed by Bowen Aguilera ([id number]), magazine editor NAREN LOCKE ([id number]) on 11/14/2023 10:50:47 AM Referred By: Confirmed By:Bowen Aguilera
[2023-11-09] MEDS: Metoprolol Tartrate 25 MG Tablet 12.5 MG PO (21:37)
[2023-11-09] MEDS: Atorvastatin Calcium 80 MG Tablet PO (21:38)
[2023-11-09] MEDS: Lactated Ringers 1,000 ML 75 ML IV (21:42)
[2023-11-09] MEDS: 0.9% Saline Lock 10 ML Syringe IV (21:43)
[2023-11-09 22:27] LABS: Troponin-I HS 7 pg/mL (3.0-78.0)
[2023-11-10] VITALS (13 sets, daily range): BP systolic 100–127; BP diastolic 68–86; PULSE 59–80; RESP 12–19; TEMP 36.1–36.6; O2SAT 95–98
--- NOTE | 2023-11-10 05:55 | EKG12_ITS ---
Test Reason : CP ADMIN Blood Pressure : / mmHG Vent. Rate : 057 BPM Atrial Rate : 057 BPM P-R Int : 184 ms QRS Dur : 100 ms QT Int : 414 ms P-R-T Axes : 033 046 027 degrees QTc Int : 402 ms Sinus bradycardia with sinus arrhythmia Otherwise normal ECG When compared with ECG of 09-NOV-2023 12:42, MANUAL COMPARISON REQUIRED, DATA IS UNCONFIRMED Confirmed by Bowen Aguilera ([id number]), assistant production editor NAREN LOCKE ([id number]) on 11/14/2023 10:51:18 AM Referred By: Confirmed By:Bowen Aguilera
[2023-11-10 06:19] LABS: Hematocrit 44.1 % (40-54); Mean Corpuscular Hgb 30.1 pg (27.0-32.0); Mean Corpuscular Volume 88.6 fL (80-94); Mean Platelet Vol. 8.7 fl (6.2-12.0); Platelet Count 336 K/mm3 (150-450); RBC Distribution Width CV 12.3 % (11.6-14.6); RBC Distribution Width SD 39.6 fl (35.1-43.9); Red Blood Count 4.98 M/mm3 (4.6-6.2); White Blood Count 5.1 K/mm3 (4.4-11.0)
[2023-11-10] MEDS: Aspirin E.C. 81 MG Tablet PO (06:37)
[2023-11-10 06:43] LABS: ALB/GLOB Ratio 1.1 RATIO (0.9-2.4); AST(SGOT) 21 U/L (15-37); Alanine Aminotransfer ALT/SGPT 28 U/L (16-61); Albumin, Serum 3.4 g/dL (3.2-5.0); Alkaline Phosphatase 65 U/L (45-117); Anion Gap 8 (5-15); BUN 10 mg/dL (7-18); BUN/Creat Ratio 13.8 RATIO (10-20); Calcium,Total 9.2 mg/dL (8.5-10.1); Chloride 109 mmol/L (98-107); Cholesterol 158 mg/dL (200); Creatinine, Serum 0.73 mg/dL (0.70-1.30); EST Glomerular Filtration Rate 118 mL/min (>60); Est Glom Filt Rate - Afr Amer 143 mL/min (>60); Estimated Creatinine Clearance 99.54 ml/min; Globulin 3.1 g/dL (2.2-4.2); Glucose 95 mg/dL (74-106); High Density Lipoprotein 57 mg/dL; Protein, Total 6.5 g/dL (6.4-8.2); Sodium Level 141 mmol/L (136-145); Triglycerides 69 mg/dL; Very Low Density Lipoprotein 14 mg/dL (5-40)
[2023-11-10 08:38] LABS: Hemoglobin A1c 5.3 % (3.8-5.6)
--- NOTE | 2023-11-10 10:15 | CASEMGMT ---
RN CM Face to Face with patient for initial transition planning/care coordination assessment. RN CM introduced self and role at [facility]. Patient lying in bed, alert and oriented. Patient willing to participate in assessment and is able to answer all questions appropriately. Care providers, pharmacy, and demographics verified. Strata: 1 PCP: Hannah Specialists: none Preferred Pharmacy: [facility] Insurance: MMO Prescription Benefit: yes Living Will/HPOA: none LNOK: , daughter Living Arrangements: Patient lives with in a single story home with 4 steps and railing to enter the home. Patient is independent at home. Transportation: self, DME/HHC: Patient denies DME in the home. No previous HHC or SNF. Patient wishes to discharge home, denies need for home health at this time. Patient states he has no further needs or concerns at this time. CM to follow for discharge planning needs that may arise. Disposition Plan: Patient to discharge home with family support and follow-up plans in place. Laura ALLISON, RN, CM
[2023-11-10] MEDS: Lactated Ringers 1,000 ML 75 ML IV (10:35)
[2023-11-10] MEDS: Metoprolol Tartrate 25 MG Tablet 12.5 MG PO (10:35)
--- NOTE | 2023-11-10 11:55 | PCM.CONS.C ---
Assessment & Plan Assessment/Plan (1) Unstable angina: PLAN: Even though the patient stress test done earlier this month was negative for inducible ischemia, clinical suspicion remains for unstable angina pectoris. I therefore offered patient coronary angiography with possible revascularization. Risks benefits and alternatives discussed. Possible coronary CT angio also offered. Patient understands and wishes to proceed with conventional coronary angiography with possible revascularization. Further recommendations following results of coronary angiography. HPI Consult Data Date of Consult: 11/10/23 HPI Narrative Reason for Consultation: Unstable angina HPI Narrative: This gentleman had his first episode of chest discomfort around . That episode was with strenuous exertion. Subsequently he was evaluated at an outside hospital. A Lexiscan stress Myoview was done which was negative for inducible ischemia. Normal LV systolic function. Since then, patient continues to have chest discomfort. He has had an episode of chest discomfort at rest. This time he presented to the emergency room with chest discomfort with minimal exertion. Per patient, there is radiation to the left shoulder and arm. Positive diaphoresis. Positive associated shortness of breath. PFSH Medical History Former smoker Obesity (BMI 30.0-34.9) Incisional hernia Hypokalemia Atypical chest pain Iron deficiency anemia Elevated PSA GERD (gastroesophageal reflux disease) Essential (primary) hypertension Lightheadedness SOB (shortness of breath) Osteoarthritis of left knee Left knee pain Arthritis Restless legs Migraine headache Chewing tobacco nicotine dependence Home Medications ?Medication ?Instructions ?Recorded ?Last Taken ?Type NK 11/09/23 Unknown History Allergy/AdvReac Type Severity Reaction Status Date / Time shellfish derived Allergy Anaphylaxis Verified 02/25/23 12:55 Family History (Updated 11/09/23 @ 20:[address] Alejandra Lutz DO) Mother Heart disease Diabetes Hypertension Father Cancer Kidney disease Heart disease Surgical History Hx of appendectomy Hx of arthroscopy of shoulder Hx of inguinal hernia repair H/O hand surgery Social History Smoking Status: Former smoker alcohol intake: never substance use type: does not use Physical Exam Narrative Comfortable. No apparent distress. Heart sounds 1 and 2 are normal. No murmurs or rubs are noted. Chest is clear to auscultation bilaterally. Alert oriented x 3. No ankle edema noted. Risk Stratification Risk Stratification Applicable: No Objective Data Vital Signs: Vital Signs Temp Pulse Resp BP Pulse Ox O2 Del Method 97.8 F 62 16 117/79 97 Room Air 11/10/23 08:21 11/10/23 10:35 11/10/23 08:21 11/10/23 08:21 11/10/23 08:21 11/10/23 08:21 Oxygen Delivery Method Room Air Weight: 163 lb 12.855 oz Body Mass Index (BMI) 26.4 Intake & Output: Intake and Output for Last 24 Hours 11/08/23 11/09/23 11/10/23 23:59 23:59 23:59 Intake Total 966.25 / 966.25 Balance 966.25 / 966.25 Lab / Micro Data Attestation: I reviewed the patient's lab results. 11/10/23 05:26 11/10/23 05:26 Labs: Laboratory Results - last 24 hr 11/09/23 12:42: WBC 8.3, RBC 5.27, Hgb 16.1, Hct 45.4, MCV 86.1, MCH 30.6, MCHC 35.5, RDW Std Deviation 37.6, RDW Coeff of [place] 11.9, Plt Count 377, MPV 8.4, Immature Gran % (Auto) 0.500, Neut % (Auto) 67.1, Lymph % (Auto) 24.2, [place] % (Auto) 7.2, Eos % (Auto) 0.5, Baso % (Auto) 0.5, Absolute Neuts (auto) 5.6, Absolute Lymphs (auto) 2.01, Nucleated RBC % 0, Sodium 134 L, Potassium 3.5, Chloride 104, Carbon Dioxide 20.0 L, Anion Gap 10, BUN 12, Creatinine 0.85, Est GFR (MDRD) Af Amer 119, Est GFR (MDRD) Non-Af 98, BUN/Creatinine Ratio 14.1, Glucose 118 H, Hemoglobin A1c 5.4, Calcium 10.2 H, Troponin I High Sens 6 11/09/23 14:30: Troponin I High Sens 6 11/09/23 21:54: Troponin I High Sens 7 11/10/23 05:26: WBC 5.1, RBC 4.98, Hgb 15.0, Hct 44.1, MCV 88.6, MCH 30.1, MCHC 34.0, RDW Std Deviation 39.6, RDW Coeff of [place] 12.3, Plt Count 336, MPV 8.7, Sodium 141, Potassium 4.0, Chloride 109 H, Carbon Dioxide 24.0, Anion Gap 8, BUN 10, Creatinine 0.73, Estim Creat Clear Calc 99.54, Est GFR (MDRD) Af Amer 143, Est GFR (MDRD) Non-Af 118, BUN/Creatinine Ratio 13.8, Glucose 95, Hemoglobin A1c 5.3, Calcium 9.2, Total Bilirubin 1.30 H, AST 21, ALT 28, Alkaline Phosphatase 65, Total Protein 6.5, Albumin 3.4, Globulin 3.1, Albumin/Globulin Ratio 1.1, Triglycerides 69, Cholesterol 158, LDL Cholesterol 87, VLDL Cholesterol 14, HDL Cholesterol 57 Rhythm Strip Rhythm Strip: Sinus Rhythm Cardiology Labs/Tests 11/09/23 12:42: WBC 8.3, RBC 5.27, Hgb 16.1, Hct 45.4, MCV 86.1, MCH 30.6, MCHC 35.5, Plt Count 377, MPV 8.4, Immature Gran % (Auto) 0.500, Neut % (Auto) 67.1, Lymph % (Auto) 24.2, [place] % (Auto) 7.2, Eos % (Auto) 0.5, Baso % (Auto) 0.5, Absolute Neuts (auto) 5.6, Nucleated RBC % 0, Sodium 134 L, Potassium 3.5, Chloride 104, Carbon Dioxide 20.0 L, Anion Gap 10, BUN 12, Creatinine 0.85, Est GFR (MDRD) Af Amer 119, Est GFR (MDRD) Non-Af 98, BUN/Creatinine Ratio 14.1, Glucose 118 H, Hemoglobin A1c 5.4, Calcium 10.2 H 11/10/23 05:26: WBC 5.1, RBC 4.98, Hgb 15.0, Hct 44.1, MCV 88.6, MCH 30.1, MCHC 34.0, Plt Count 336, MPV 8.7, Sodium 141, Potassium 4.0, Chloride 109 H, Carbon Dioxide 24.0, Anion Gap 8, BUN 10, Creatinine 0.73, Est GFR (MDRD) Af Amer 143, Est GFR (MDRD) Non-Af 118, BUN/Creatinine Ratio 13.8, Glucose 95, Hemoglobin A1c 5.3, Calcium 9.2, Total Bilirubin 1.30 H, Triglycerides 69, Cholesterol 158, LDL Cholesterol 87, VLDL Cholesterol 14, HDL Cholesterol 57 Rhythm: Sinus rhythm EKG: Normal sinus rhythm. No ischemic changes. ECHO: Stress Test: Cardiac Cath: PCI: CT Surgery: Holter monitor: EPS: PPM: CXR: Chest CT Scan: Radiography Diagnostic Testing: Radiology Impression Chest X-Ray 11/09/23 12:46 IMPRESSION: Hiatal hernia. The lungs are clear. Electronically Signed: Michele Larson MD at 13:42 EDT ,
--- NOTE | 2023-11-10 12:42 | CL.D_ITS ---
Patient Name: TEODORA LEO Study Date: 11/10/2023 Performing: Omar Medina MD Ht: 66 inches 167.64 cm : 1965 Wt: 163.8 lbs 74.3 kg Age: 58 Gender: male BSA: 1.84 PROCEDURE(S) PERFORMED [id number])[facility] CLINICAL PROFILE AND INDICATIONS Indications: Suspected CAD, Worsening Angina Heart Failure: None CAD Presentations: Unstable angina. CONCLUSIONS RECOMMENDATIONS Medical therapy Risk factor modification DESCRIPTION OF PROCEDURE The patient arrived to the procedure lab. The risks and benefits of the procedure as well as a full description of our services here and current unavailability of surgical backup were fully explained to the patient and/or their significant other prior to the catheterization. The Timeout was completed, verifying the correct patient and procedure. The patient's procedural site was prepped and draped in the usual fashion. Local anesthetic was given subcutaneously to right radial region with Lidocaine 2%. Using a modified Seldinger technique, arterial access was obtained via the right radial artery, a 6Fr sheath was inserted. Left Coronary Artery selective angiography was performed in multiple views using a 5 Fr. 4.0 [place] catheter. LV to AO pullback pressures were then recorded. Right Coronary Artery selective angiography was then performed in multiple views using a 5 Fr. 4.0 [place] catheter.The arterial sheath was pulled and a TR Band was applied for hemostasis CORONARY ANGIOGRAPHY DOMINANCE: Co- Dominant LEFT HEART ASSESSMENT LVEDP: 20 mmHg LEFT MAIN: No significant disease noted LEFT ANTERIOR DESCENDING ARTERY: LAD: Tubular 30% Proximal lesion in LAD Tubular 30% Proximal lesion in LAD CIRCUMFLEX ARTERY: CIRCUMFLEX: Luminal Irregularities 20% Proximal lesion in circumflex RIGHT CORONARY ARTERY: RCA: Tubular 50% Proximal lesion in RCA COMPLICATIONS No Complications PROCEDURE MEDICATIONS Versed 1 mg IV Fentanyl 50 mcg IV Oxygen: 2 L/min via nasal cannula Benadryl 50 mg IV @ 11/10/2023 12:04:44 Solu-medrol 125 mg IV 11/10/2023 12:04:33 SUMMARY OF HEMODYNAMIC DATA Time AIR REST ECG 12:01:20 AO 108/76 (91) SA 12:22:06 LV 104/18, 20 12:25:13 LV 109/18, 21 12:25:21 LVp 111/18, 20 12:25:26 AO 103/76 (92) 12:25:33 12:38:19 Signed By Omar Medina MD On 11/10/2023 12:41:59 Omar Medina MD
--- NOTE | 2023-11-10 13:16 | DCINST_ITS ---
Discharge Instructions Diet Discharge Diet: No restrictions Activity Discharge Activity: No Restrictions Follow Up Care Test Results: Test results from this visit will be discussed in further detail at your follow-up appointment, if applicable. Discharge Plan Admission Admit Date/Time: 11/09/23 16:57 Primary Reason for Your Visit: Chest pain Attending Provider: Radames Maurer Primary Care Provider: Gaetano Mendoza Consulting Providers: Omar Medina; Alejandra Lutz Instructions Additional Instructions / Restrictions: Please start taking the medication as noted below on a daily basis. A cardiac event monitor will be sent to you in the mail; please wear this for 14 days and results will be sent to the deck hand to review. Discharge Orders/Prescriptions Prescriptions: New atorvastatin 10 mg Tablet 10 mg PO QHS 90 Days Qty: 90 0RF amlodipine 5 mg Tablet 5 mg PO DAILY 30 Days Qty: 30 2RF aspirin 81 mg Tablet,Delayed Release (Dr/Ec) 81 mg PO BREAKFAST 90 Days Qty: 90 0RF Other Ambulatory Orders: 14 Day Event Recorder Preventi (Urgent) Timeframe: 2 Weeks Facility: [facility] - Location: Cardiovascular Services Ordered By: Dr. Radames Maurer Referrals / Follow Up: Gaetano Mendoza MD [Primary Care Provider] - Disposition Disposition (needs filled in before D/C Order can be placed): Home, Self Care
--- NOTE | 2023-11-10 13:16 | PCM.DC.SUM ---
Providers Date of Admission: 11/09/23 Date of Discharge: 11/10/23 Primary Care Physician: Dr. Gaetano Mendoza MD Consultations 11/09/23 20:57 Consult: Cardiology Routine Consulting Provider: Omar Medina Reason for Consult: Chest Pain EMERGENT Consult: No MD Notified: Yes Date Notified: 11/09/23 Time Notified: 16:58 Method of Notification: ED Physician Initiated Reason For Visit: UNSTABLE ANGINA Diagnosis Discharge Diagnosis (1) Unstable angina: Status: Acute Code(s): I20.0 - Unstable angina Medications at Discharge Home Medications amlodipine 5 mg tablet 5 mg PO DAILY 30 days #30 tabs 11/10/23 aspirin 81 mg tablet,delayed release 81 mg PO BREAKFAST 90 days #90 tabs 11/10/23 atorvastatin 10 mg tablet 10 mg PO QHS 90 days #90 tabs 11/10/23 Hospital Course Operations None Procedures Cardiac catheterization, EKG and - (Chest x-ray) Summary of Care Provided Minutes Spent on Discharge: 35 Hospital Course: Patient is a 58-year-old male who presented [facility] ED on 11/09/2023 with recurrent chest pain and presyncopal symptoms. Short hospital course as noted below. Patient discharged home in stable condition on 11/09. 1. Recurrent chest pain with presyncopal symptoms ? Cardiology followed. Echo done recently at [facility] showed EF 50 to 55%, no wall motion abnormalities. Stress test on 10/31 was negative. EKG normal on admit, troponins negative. Left heart cath on 11/09 showed 30% lesions in proximal LAD, 20% proximal lesion in circumflex, 50% lesion in RCA. No stents needed. Lipid panel with total cholesterol 158, LDL 87, HDL 57. A1c 5.3%. Per cardiology, discharged on aspirin 81 mg daily, atorvastatin 10 mg daily and amlodipine 5 mg daily. 14-day event monitor prescribed on discharge. Outpatient follow-up with cardiology as needed. 2. Hiatal hernia ? Found incidentally on chest x-ray, patient asymptomatic. Outpatient monitoring. 3. History of recurrent right inguinal hernia ? Repair with mesh [place] [address] Ly. No current issues. 4. History of remote tobacco abuse ? Encouraged continued cessation. Total clinical time spent by myself addressing the patient's medical issues, reviewing all the data, and collaborating with patient's care team: 35 minutes. Physical Exam Const alert, oriented x3, no apparent distress, average body habitus, healthy appearing and well nourished General Appearance: cooperative, comfortable, well kempt and well developed HEENT normocephalic, head/scalp atraumatic, hearing grossly normal bilaterally, nasal mucous membranes and turbinates normal and moist oral mucous membranes Eyes PERRL, EOMs intact bilaterally and conjunctivae normal Neck full ROM Chest inspection of chest normal Resp normal respiratory effort, normal air movement, no use of accessory muscles and clear to auscultation bilaterally Cardio regular rate, regular rhythm, no murmurs and peripheral pulses 2+ throughout GI normal to inspection, nondistended, normoactive bowel sounds, soft to palpation, non-tender and non-distended Back/Spine normal ROM Extremity normal to inspection, full ROM and no pedal edema Skin no rashes or lesions noted Neuro no focal motor deficits and no sensory deficits noted Speech: speech normal Psych mental status grossly normal Weight / BMI Weight Weight: 74.3 kg Body Mass Index (BMI) 26.4 ABG / Lab / Microbiology Data 11/10/23 05:26 11/10/23 05:26 Laboratory: Laboratory Results - last 24 hr 11/09/23 12:42: Hemoglobin A1c 5.4 11/09/23 14:30: Troponin I High Sens 6 11/09/23 21:54: Troponin I High Sens 7 11/10/23 05:26: WBC 5.1, RBC 4.98, Hgb 15.0, Hct 44.1, MCV 88.6, MCH 30.1, MCHC 34.0, RDW Std Deviation 39.6, RDW Coeff of Jefferson 12.3, Plt Count 336, MPV 8.7, Sodium 141, Potassium 4.0, Chloride 109 H, Carbon Dioxide 24.0, Anion Gap 8, BUN 10, Creatinine 0.73, Estim Creat Clear Calc 99.54, Est GFR (MDRD) Af Amer 143, Est GFR (MDRD) Non-Af 118, BUN/Creatinine Ratio 13.8, Glucose 95, Hemoglobin A1c 5.3, Calcium 9.2, Total Bilirubin 1.30 H, AST 21, ALT 28, Alkaline Phosphatase 65, Total Protein 6.5, Albumin 3.4, Globulin 3.1, Albumin/Globulin Ratio 1.1, Triglycerides 69, Cholesterol 158, LDL Cholesterol 87, VLDL Cholesterol 14, HDL Cholesterol 57 Radiography Diagnostic Testing: Radiology Impression Chest X-Ray 11/09/23 12:46 IMPRESSION: Hiatal hernia. The lungs are clear. Electronically Signed: Michele Larson MD at 13:42 EDT , Meaningful Use Info Meaningful Use Meaningful Use Diagnoses (Choose all that apply): None applicable Ischemic Stroke Statin Dosing Therapy Reference: STATIN DOSE THERAPY REFERENCE: * Patients > 75 years receive moderate or high dose statin therapy. * Patients 75 years or YOUNGER should receive HIGH intensity statin dose unless contraindicated. You will be required to document reason for non-treatment if statin daily dose does not meet guidelines. HIGH DOSE STATIN THERAPY DAILY Atorvastatin > than or = to 40 mg Rosuvastatin > than or = to 20 mg Amlodipine + Atorvastatin > than or = to 2.5/40 mg Ezetimibe + Simvastatin 10/80 mg Simvastatin 80mg Discharge Plan Admission Admit Date/Time: 11/09/23 16:57 Primary Reason for Your Visit: Chest pain Attending Provider: Radames Maurer Primary Care Provider: Gaetano Mendoza Consulting Providers: Omar Medina; Alejandra Lutz Instructions Additional Instructions / Restrictions: Please start taking the medication as noted below on a daily basis. A cardiac event monitor will be sent to you in the mail; please wear this for 14 days and results will be sent to the human resources intern to review. Discharge Orders/Prescriptions Prescriptions: New atorvastatin 10 mg Tablet 10 mg PO QHS 90 Days Qty: 90 0RF amlodipine 5 mg Tablet 5 mg PO DAILY 30 Days Qty: 30 2RF aspirin 81 mg Tablet,Delayed Release (Dr/Ec) 81 mg PO BREAKFAST 90 Days Qty: 90 0RF Other Ambulatory Orders: 14 Day Event Recorder Preventi (Urgent) Timeframe: 2 Weeks Facility: [facility] - Location: Cardiovascular Services Ordered By: Dr. Radames Maurer Referrals / Follow Up: Gaetano Mendoza MD [Primary Care Provider] - Disposition Disposition (needs filled in before D/C Order can be placed): Home, Self Care Charges/Coding Visit Charges Inpatient E&M: 82207 Disch Hosp >30min
--- NOTE | 2023-11-10 14:37 | CASEMGMT ---
Patient has order for discharge. RN CM in to discuss needs at discharge. Patient denies needs or help at discharge. Patient had no further questions or concerns.
== END 2023-11-10 17:05 | disposition home or self-care (01) | DRG 287 ==
LOC: ED 15:56 → PCU 11-10 07:03
PROVIDERS: Family Medicine; Admitting Provider Internal Medicine; Emergency Provider Emergency Medicine; PCP Family Medicine; Visit Provider Hospitalist
DX: I20.0 Unstable angina (principal); I10 Essential (primary) hypertension; K44.9 Diaphragmatic hernia without obstruction or gangrene; Z79.899 Other long term (current) drug therapy; Z87.891 Personal history of nicotine dependence; Z82.49 Family history of ischemic heart disease and other diseases of the circulatory system
CPT/HCPCS: 36415; 71045; 80048; 80053; 80061; 83036; 84484; 85025; 85027; 93005; 93454; 94668; 97802; 99152; 99153; 99285; J7040; J7120; Q9967; A4216; C1769; C1894

== ENCOUNTER 2024-07-24 21:01 | Observation (INO) | payer OTHER, SELFPAY ==
[2024-07-24 21:03] VITALS: BP 130/102; PULSE 92; RESP 18; TEMP 36.4; O2SAT 100; BMI 26.9
[2024-07-24 21:18] VITALS: BMI 26.9
--- NOTE | 2024-07-24 21:43 | CT_ITS ---
PROCEDURE: BRAIN/HEAD WITHOUT CONTRAST 07/24/2024 REASON FOR EXAM: CONCERN FOR TIA/CVA TECHNIQUE: Head CT without intravenous contrast. Coronal and Sagittal reconstruction series were provided. One or more dose reduction techniques were used (e.g., Automated exposure control, adjustment of the mA and/or kV according to patient size, use of iterative reconstruction technique. RADIATION DOSE SUMMARY: CTDlvol: 44.99 mGy DLP: 829.85 mGycm COMPARISON: None. FINDINGS: The ventricles are normal in size and midline in position. No evidence of acute hemorrhage or infarction. No extra-axial blood or fluid collections. The paranasal sinuses are clear. The mastoid air cells are well aerated. The calvarial vault and skull base are intact. CT/Brain/Head without Contrast IMPRESSION: No acute intracranial abnormality. Reading Location: [place] [id number]
--- NOTE | 2024-07-24 21:43 | CT_ITS ---
PROCEDURE: CTA HEAD AND NECK W/ CONTRAST 07/24/2024 REASON FOR EXAM: TIA/CVA TECHNIQUE: CTA imaging of the head and neck from the aortic arch to the skull vertex with out contrast and with intravenous contrast. Multiplanar and multisequence images were obtained. CONTRAST: Isovue 370 VOLUME: 100 mL. One or more dose reduction techniques were used (e.g., Automated exposure control, adjustment of the mA and/or kV according to patient size, use of iterative reconstruction technique). RADIATION DOSE SUMMARY: CTDlvol: 53.97+ 18.86 mGy DLP: 807.52 mGycm COMPARISON: None. FINDINGS: The common carotid arteries are patent without evidence of stenosis or injury. The internal carotid arteries are patent without evidence of stenosis or injury. The cervical vertebral arteries are patent without evidence of stenosis or injury. Atherosclerosis of the carotid siphons without significant stenosis. The [id number] is patent. The anterior cerebral, anterior communicating, middle cerebral, and posterior cerebral arteries are patent. The vertebrobasilar system is patent. The lung apices are clear. CT/CTA Head AND Neck W/ Contrast IMPRESSION: No acute arterial abnormality of the head or neck. Reading Location: [place] [address]
--- NOTE | 2024-07-24 21:44 | EKG12_ITS ---
Test Reason : NEURO Blood Pressure : */* mmHG Vent. Rate : 80 BPM Atrial Rate : 80 BPM P-R Int : 178 ms QRS Dur : 92 ms QT Int : 354 ms P-R-T Axes : 16 14 0 degrees QTcB Int : 408 ms Normal sinus rhythm Normal ECG Confirmed by RUDDY LUIS, BERNIE ([id number]), web editor NAREN LOCKE ([id number]) on 07/30/2024 7:10:14 AM Referred By: Confirmed By: BERNIE FOX MD
[2024-07-24] MEDS: 0.9% Normal Saline (1000mL) 1,000 ML 1000 ML IV (22:03)
[2024-07-24 22:07] LABS: Absolute Lymphocyte Count 1.27 X10^3/uL (0.83-4.51); Absolute Neutrophil Count 5.6 X10^3/uL (2.0-7.7); Basophil# 0.03 X10^3/uL; Basophil% 0.4 % (0-1); Eosinophil# 0.08 X10^3/uL; Eosinophils% 1.1 % (0-5); Hematocrit 42.9 % (40-54); Hemoglobin 15.2 g/dL (13.0-16.5); Lymphocyte # 1.27 X10^3/ul (0.83-4.51); Lymphocyte % 17.2 % (19-41); Mean Corp Hgb Conc 35.4 g/dL (32-36); Mean Corpuscular Hgb 30.6 pg (27.0-32.0); Mean Corpuscular Volume 86.5 fL (80-94); Mean Platelet Vol. 8.8 fl (6.2-12.0); Monocyte# 0.41 X10^3/uL; Monocyte% 5.5 % (0-10); NRBC Flagged by Analyzer 0 % (0-5); Neutrophil # 5.56 X10^3/uL (2.7-7.7); Neutrophil % 75.1 % (47-70); Platelet Count 326 K/mm3 (150-450); RBC Distribution Width CV 11.8 % (11.6-14.6); RBC Distribution Width SD 37.2 fl (35.1-43.9); Red Blood Count 4.96 M/mm3 (4.6-6.2); White Blood Count 7.4 K/mm3 (4.4-11.0)
--- NOTE | 2024-07-24 22:10 | RAD_ITS ---
PROCEDURE: CHEST 1 VIEW (PORTABLE) 07/24/2024 REASON FOR EXAM: TIA/CVA TECHNIQUE: Frontal view of the chest. COMPARISON: Chest radiograph dated 11/09/2023 FINDINGS: Heart: The heart size is normal. Lungs: The lungs are clear. No significant pleural effusion. Bones: Degenerative changes are identified within the thoracic spine. RAD/Chest 1 View (Portable) IMPRESSION: No acute cardiopulmonary abnormality. Reading Location: [place]
--- OUTSIDE RECORDS SUMMARY | 2024-07-24 22:21 | XMS RPT_ITS | CCD ---
Author Organization [facility] Bright Pattern ion [facility] Care Team Providers Care Blindstitch Hemmer Name Role Phone NAZANIN MENDOZA MD Primary Care Physician BOB RICE Primary Care Physician Dr. Nazanin Mendoza Primary Care Provider Dr. Ricardo Ly Attending Provider [phone] Merly Hankins Referring Provider Unavailable Dr. Ricardo Ly Other Provider [phone] Primary Care Physician ARAMIS ABRBA, [facility] Unavail able DAVID BOCANEGRA Attending Un available [facility] Unavail able SACHIN RENAE, DR BRANDON Attending Unavailable SACHIN RENAE, DR BRANDON Attending Unavailable [facility] Unavail able ROMAR DO, DR BRANDON Attending Unavailable [facility] Unav[facility] able ARAMIS CORRAL-THOR, [facility] Unavail able ROMAR DO, DR BRANDON Attending Unavailable Tere Dubon Unavailable Unavailable Radames Maurer Attending Unavailable Alejandra Lutz Admitting Unavailable Adam, Omar Consulting Unavailable Nazanin Mendoza Primary Care Unavailable Alejandra Lutz Consulting Unavailable Bowen Aguilera Attending Unavailable Bowen Aguilera Referring Unavailable Nazanin Mendoza Primary Care Unavailable Alejandra Lutz Consulting Unavailable Alejandra Lutz Attending Unavailable Alejandra Lutz Admitting Unavailable Nazanin Mendoza Primary Care Unavailable Bolivar Alejandra Admitting Unavailable Adam, Omar Consulting Unavailable Adam Omar Attending Unavailable Nazanin Mendoza Primary Care Unavailable Alejandra Lutz Consulting Unavailable Radames Maurer Consulting Unavailable Radames Maurer Attending Unavailable Nazanin Mendoza Primary Care Unavailable Simón Teran Attending Unavailable Nazanin Mendoza Referring Unavailable Kannan Kevin Attending Unavailable Nazanin Mendoza Primary Care Unavailable Nazanin Mendoza Primary Care Unavailable Radames Maurer Referring Unavailable Omar Medina Attending Unavailable Radames Maurer Attending Unavailable Radames Maurer Referring Unavailable Reji Nazanin Primary Care Unavailable ALEKSANDR STEPHENSON Attending Unavailable LORSON IT INFRASTRUCTURE SPECIALIST-SECURITY TEST ENGINEER, [facility] Unavail able ALEKSANDR STEPHENSON Attending Unavailable LORSON IT INFRASTRUCTURE SPECIALIST-SECURITY TEST ENGINEER, [facility] Unavail able CAYETANO KEY DO Attending Unavailable KAPPER IT INFRASTRUCTURE SPECIALIST-SECURITY TEST ENGINEER, ALESHIA Gonzalez Admitting Unavaila ble LORSON IT INFRASTRUCTURE SPECIALIST-SECURITY TEST ENGINEER, [facility] Unavail able ALEKSANDR STEPHENSON Attending Unavailable LORSON IT INFRASTRUCTURE SPECIALIST-SECURITY TEST ENGINEER, [facility] Care Unavail able LORSON IT INFRASTRUCTURE SPECIALIST-SECURITY TEST ENGINEER, REHANA Attending Unavail able LORSON IT INFRASTRUCTURE SPECIALIST-SECURITY TEST ENGINEER, CAMPBELL Primary Care Unavail able LORSON IT INFRASTRUCTURE SPECIALIST-SECURITY TEST ENGINEER, REHANA Attending Unavail able LORSON IT INFRASTRUCTURE SPECIALIST-SECURITY TEST ENGINEER, [facility] Care Unavail able Allergies Allergy Classification Reported Allergen(s) Allergy Type Date of Onset Reaction(s) Facility (3 sources) Shellfish; Translations: [shellfish derived] Allergy to substance [address] [facility] Repository (3 sources) Shellfish Food allergy Vomiting (disorder) [facility] Medications Current Medications Medication Drug Class(es) Dates Sig (Normalized) Sig (Original) amLODIPine 5 mg oral tablet (4 sources) Dihydropyridine Calcium Channel Preston Start: 10-25-2023 End: 01-23-2024 amLODIPine 5 mg oral tablet Dose : 5 mg = 1 tab(s), Oral, qDay, # 30 tab(s), 0 Refill(s) Start Date: 11/14/23 Status: Ordered atorvastatin 40 mg oral tablet (2 sources) HMG-CoA Reductase Inhibitor Start: 01-02-2024 End: 12-27-2024 atorvastatin 40 mg oral tablet Dose : 40 mg = 1 tab(s), Oral, qDay, # 90 tab(s), 3 Refill(s), Pharmacy: [id number], 168, cm, 01/02/24 7:54:00 EST, Height, kg, 01/02/24 7:54:00 EST, Dosing Weight Start Date: 01/02/24 Stop Date: 12/27/24 Status: Ordered Quantity: 90.0 Unit: tab(s) Repeat number: 4 Start: 11-14-2023 atorvastatin 1 0 mg oral tablet Dose : 10 mg = 1 tab(s), Oral, qDay, # 30 tab(s), 0 Refill(s) Start Date: 11/14/23 Status: Ordered DME MISCellaneous (5 sources) Start: 10-25-2023 DME MISCellane ous See Instructions, BP cuff and machine, Dx: R03.0, # 1 EA, 0 Refill(s), Elevated blood pressure reading, 79.9 Start Date: 10/25/23 Status: Ordered Quantity: 1.0 Unit: EA Repeat number: 1 Indication: Elevated blood-pressure reading, without diagnosis of hypertension Start: 10-25-2023 DME MISCellane ous See Instructions, BP cuff and machine, Dx: R03.0, # 1 EA, 0 Refill(s), Elevated blood pressure reading, 79.9 Start Date: 10/25/23 Status: Ordered ibuprofen 200 mg oral tablet (3 sources) Nonsteroidal Anti-inflammatory Drug Start: 03-24-2022 ibuprofen 200 mg oral tablet Dose : 400 mg = 2 tab(s), Oral, q6hr, PRN pain or fever, 0 Refill(s) Start Date: 03/24/22 Status: Ordered loratadine 10 mg oral capsule (3 sources) Start: 10-15-2022 loratadine 10 mg oral capsule Dose : 10 mg = 1 cap(s), Oral, qDay, # 10 cap(s), 0 Refill(s), Pharmacy: [facility] #[id number], Rash, 165.1, cm, 10/15/22 10:16:00 EDT, Height, kg, 10/15/22 10:16:00 EDT, Dosing Weight Start Date: 10/15/22 Status: Ordered oxyCODONE hydrochloride 5 mg oral tablet (1 source) Opioid Agonist Start: 02-18-2022 take 5-10 mg by mouth every six hours Oxycodone Active 5 - 10 MG PO EVERY 6 HOURS 10 February 18, 2022 PEG-3350 with Electrolytes (Eqv-GoLYTELY) oral powder for reconstitution (1 source) Start: 07-28-2022 PEG-3350 with Electrolytes (Eqv-GoLYTELY) oral powder for reconstitution See Instructions, Take as directed 1 day before colonoscopy. Follow instructions as provided by your GI provider at [facility]., # 1 EA, 0 Refill(s), Pharmacy: [facility] #[id number], 167.8, cm, 07/28/22 7:28:00 EDT, Height Start Date: 07/28/22 Status: Ordered tamsulosin hydrochloride 0.4 mg oral capsule (4 sources) alpha-Adrenergic Preston Start: 03-24-2022 tamsulosin 0.4 mg oral capsule Dose : 0.4 mg = 1 cap(s), Oral, qDay, 0 Refill(s) Start Date: 03/24/22 Status: Ordered Start: 02-11-2022 take 1 capsule by mo uth at bedtime Tamsulosin (Flomax) 0.4 mg Capsule Active 0.4 MG PO AT BEDTIME February 11, 2022 12:00am Start: 12-28-2021 End: 02-03-2022 take 1 capsule by mouth once daily Tamsulosin (Flomax) 0.4 mg capsule Discontinued 0.4 MG PO DAILY December 28, 2021 12:00am February 03, 2022 8:53am Completed/Discontinued Medications Medication Drug Class(es) Dates Sig (Normalized) Sig (Original) aspirin 81 mg oral tablet (2 sources) Platelet Aggregation Inhibitor, Nonsteroidal Anti-inflammatory Drug Start: 11-14-2023 take 1 tablet by mouth at breakfast ASPIRIN LOW EC 81MG TAB ASPIRIN LOW EC 81MG TAB, TAKE 1 TABLET BY MOUTH WITH BREAKFAST FOR 90 DAYS Start Date: 11/14/23 Status: Ordered Repeat number: 1 famotidine 20 mg oral tablet (3 sources) Histamine-2 Receptor Antagonist Start: 10-15-2022 End: 10-25-2022 Pepcid 20 mg oral tablet Dose : 20 mg = 1 tab(s), Oral, BID, # 20 tab(s), 0 Refill(s), Pharmacy: [facility] #[id number], Rash, 165.1, cm, 10/15/22 10:16:00 EDT, Height, kg, 10/15/22 10:16:00 EDT, Dosing Weight Start Date: 10/15/22 Stop Date: 10/25/22 Status: Ordered omeprazole 40 mg delayed release oral capsule (1 source) Proton Pump Inhibitor Start: 11-16-2023 End: 11-30-2023 omeprazole 40 mg oral delayed release capsule Dose : 40 mg = 1 cap(s), Oral, qDay, # 14 cap(s), 0 Refill(s), Pharmacy: [id number], 167, cm, 11/16/23 10:39:00 EDT, Height, kg, 11/16/23 10:39:00 EDT, Dosing Weight Start Date: 11/16/23 Stop Date: 11/30/23 Status: Ordered Problems Active Problems Problem Classification Problem Date Documented Da te Episodic/Chronic Abdominal hernia (6 sources) Right inguinal hernia ; Translations: [Unilateral inguinal hernia, without obstruction or gangrene, not specified as recurrent] Episodic Abdominal pain (2 sources) Abdominal pain; Translations: [Unspecified abdominal pain] Episodic Administrative/social admission (9 sources) Administrative reason for encounter 09-22-2020 Episodic Aortic; peripheral; and visceral artery aneurysms (1 source) Aortic root dilatation 04-03-2024 Chronic Coronary atherosclerosis and other heart disease (3 sources) Preinfarction syndrome; Translations: [Unstable angina] Onset: 12-01-2023 11-16-2023 Chronic Disorders of lipid metabolism (2 sources) Hyperlipidemia 11-16-2023 Chronic Essential hypertension (2 sources) Essential hypertension; Translations: [Essential (primary) hypertension] Onset: 11-01-2023 Chronic Genitourinary symptoms and ill-defined conditions (2 sources) Acute retention of urine ; Translations: [Other retention of urine] Episodic Malaise and fatigue (8 sources) Fatigue 08-26-2021 Episodic Mood disorders (2 sources) 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 Nonspecific chest pain (1 source) Chest pain; Translations: [Other chest pain] Onset: 11-01-2023 Episodic Nutritional deficiencies (8 sources) Vitamin D deficiency 06-21-2022 Chronic Other acquired deformities (6 sources) Scoliosis deformity of spine; Translations: [Scoliosis, unspecified] Onset: 10-25-2023 Chronic Other circulatory disease (7 sources) Elevated blood pressure 06-22-2022 Episodic Other lower respiratory disease (6 sources) Snoring 07-21-2022 Episodic Other nervous system disorders (1 source) Carpal tunnel syndrome, left upper limb; Translations: [Carpal tunnel syndrome, left upper limb] Onset: 03-15-2024 Chronic Other non-traumatic joint disorders (1 source) Pain in left knee; Translations: [Pain in left knee] Onset: 03-15-2024 Episodic Other non-traumatic joint disorders (1 source) Pain in right knee; Translations: [Pain in right knee] Onset: 03-15-2024 Episodic Other nutritional; endocrine; and metabolic disorders (8 sources) Unintentional weight loss 08-26-2021 Episodic Other screening for suspected conditions (not mental disorders or infectious disease) (8 sources) Viral screening status 08-26-2021 Episodic Residual codes; unclassified (8 sources) Insomnia 08-26-2021 Episodic Substance-related disorders (12 sources) Nicotine dependence; Translations: [Nicotine dependence, chewing tobacco, uncomplicated] Onset: 10-25-2023 07-21-2022 Chronic Unclassified (20 sources) Patient encounter status 08-26-2021 Unclassified (7 sources) Paresthesia of bilateral hands 06-21-2022 Past or Other Problems Problem Classification Problem Date Documented Da te Episodic/Chronic Diabetes mellitus without complication (1 source) Hyperglycemia, unspecified; Translations: [Hyperglycemia, unspecified] Onset: 12-14-2023 Episodic Other lower respiratory disease (6 sources) Dyspnea; Translations: [Shortness of breath] Onset: 10-25-2023 10-25-2023 Episodic Other lower respiratory disease (2 sources) Shortness of breath; Translations: [Shortness of breath] Onset: 10-25-2023 Episodic Results Test Name Value Interpretation Reference Range [facility] 05-07-2024 U Ratio Alb/Cre 6 mg/G Normal 0-30 [facility] Comment on above: Result Comment: The units for the MALB test were changed, but the MALB ratio calculation was not initially adjusted to reflex this. The corrected ratio has now been recalculated using the appropriate conversion factor. BP Performed By: #### M ALBR ####[place] [address] .GFRon 04-18-2024 Estimated Glomerular Filtration Rate 83 ml/min/1.73sqm Normal [facility] Comment on above: Result Comment: Stages of Chronic Kidney Disease (CKD) Stage Description eGFR(ml/min/1.73 sq.m.) CKD 1 Normal kidney function or >=90 normal kindney function with possible kidney damage (ex. Proteinuria) CKD 2 Kidney damage with mild loss 60-89 of kidney function CKD 3a Mild to moderate loss of kidney 45-59 function CKD 3b Moderate to severe loss of 30-44 of kindey function CKD 4 Severe loss of kidney function 15-29 CKD 5 Kidney failure <15 Note: (go live 2024) the eGFR calculation was updated to the 2020 CKD-EPI creatinine equation without a race factor to calculate the eGFR results. Performed By: #### L IPID, CMP, GFR ####[address] [place], [place] [address] CMPon 04-18-2024 Albumin Level 3.7 G/dL Normal 3.5-5.0 [facility] Comment on above: Performed By: #### L IPID, CMP, GFR ####[address] [place], [place] [address] Albumin/Globulin [Mass ratio] 1.2 {ratio} Normal 1.1-2.5 [facility] Comment on above: Performed By: #### L IPID, CMP, GFR ####[address] [place], [place] [address] ALP [Catalytic activity/Vol] 78 U/L Normal 40-135 [facility] Comment on above: Performed By: #### L IPID, CMP, GFR ####[address] [place], [place] [address] ALT [Catalytic activity/Vol] 32 U/L Normal 16-63 [facility] Comment on above: Performed By: #### L IPID, CMP, GFR ####[address] [place], [place] [address] AST [Catalytic activity/Vol] 24 U/L Normal 10-40 [facility] Comment on above: Performed By: #### L IPID, CMP, GFR ####[address] [place], [place] [address] Bili Total 1.4 mg/dL High 0.2-1.0 [facility] Comment on above: Result Comment: Use of this assay is not recommended for patients undergoing treatment with eltrombopag due to the potential for falsely elevated results. Performed By: #### L IPID, CMP, GFR ####[address] [place], [place] [address] BUN/Creatinine Ratio 12 ratio Normal 7-27 [facility] Comment on above: Performed By: #### L IPID, CMP, GFR ####[address] [place], [place] [address] Calcium [Mass/Vol] 9.4 mg/dL Normal 8.4-10.2 [facility] Comment on above: Performed By: #### L IPID, CMP, GFR ####[address] [place], [place] [address] Chloride [Moles/Vol] 103 mmol/L Normal 98-107 [facility] Comment on above: Performed By: #### L IPID, CMP, GFR ####[address] [place], [place] [address] CO2 [Moles/Vol] 28 mmol/L Normal 22-29 [facility] Comment on above: Performed By: #### L IPID, CMP, GFR ####[address] [place], [place] [address] Creatinine [Mass/Vol] 1.04 mg/dL Normal 0.70-1.30 [facility] Comment on above: Result Comment: Test ing performed on Siemens Dimension EXL analyzer using a modified kinetic Andria technique. Performed By: #### L IPID, CMP, GFR ####[address] [place], [place] [address] Electrolyte Balance 7.0 mEq/L Normal 4.0-15.0 [facility] Comment on above: Performed By: #### L IPID, CMP, GFR ####[address] [place], [place] [address] Globulin 3.1 G/dL Normal 1.5-3.8 [facility] Comment on above: Performed By: #### L IPID, CMP, GFR ####[facility] [place], [place] [address] Glucose [Mass/Vol] 97 mg/dL Normal 70-105 [facility] Comment on above: Performed By: #### L IPID, CMP, GFR ####[address] [place], [place] [address] Potassium [Moles/Vol] 3.7 mmol/L Normal 3.5-5.1 [facility] Comment on above: Performed By: #### L IPID, CMP, GFR ####[place] [address] [place], [place] [address] Sodium [Moles/Vol] 138 mmol/L Normal 136-145 [facility] Comment on above: Performed By: #### L IPID, CMP, GFR ####[address] [place], [place] [address] Total Protein 6.8 G/dL Normal 6.4-8.2 [facility] Comment on above: Performed By: #### L IPID, CMP, GFR ####[place] [address] [place], [place] [address] Urea nitrogen [Mass/Vol] 12 mg/dL Normal 7-18 [facility] Comment on above: Performed By: #### L IPID, CMP, GFR ####[facility] [place], [place] [address] LABORATORYOrdered By: Renetta Ribeiro on 04-18-2024 Albumin DL <= 20 mg/L (U) [Mass/Vol] 7.3 mg/L Invalid Interpretation Code AO ADM SS Albumin/Creatinine DL <= 20 mg/L (U) [Mass ratio] 0 mcg/mg Normal 0 - 30 mcg/mg AO Chemistry S Creatinine (U) [Mass/Vol] 128.9 mg/dL Invalid Interpretation Code AO ADM SS LABORATORYOrdered By: Really Simple on 04-18-2024 Albumin BCP dye [Mass/Vol] 3.7 G/dL Normal 3.5 - 5.0 G/dL AO ADM SS Albumin/Globulin [Mass ratio] 1.2 {ratio} Normal 1.1 - 2.5 ratio AO ADM SS ALP [Catalytic activity/Vol] 78 U/L Normal 40 - 135 U/L AO ADM SS ALT With P-5'-P [Catalytic activity/Vol] 32 U/L Normal 16 - 63 U/L AO ADM SS AST With P-5'-P [Catalytic activity/Vol] 24 U/L Normal 10 - 40 U/L AO ADM SS Bilirubin [Mass/Vol] 1.4 mg/dL High 0.2 - 1 .0 mg/dL AO ADM SS Comment on above: Interpretive Data: U se of this assay is not recommended for patients undergoing treatment with eltrombopag due to the potential for falsely elevated results. Calcium [Mass/Vol] 9.4 mg/dL Normal 8.4 - 10. 2 mg/dL AO ADM SS Chloride [Moles/Vol] 103 mmol/L Normal 98 - 10 7 mmol/L AO ADM SS CO2 [Moles/Vol] 28 mmol/L Normal 22 - 29 mmol/L AO ADM SS Creatinine [Mass/Vol] 1.04 mg/dL Normal 0.70 - 1.30 mg/dL AO ADM SS Comment on above: Interpretive Data: T esting performed on Siemens Dimension EXL analyzer using a modified kinetic Andria technique. Electrolyte Balance 7.0 mEq/L Normal 4.0 - 15 .0 mEq/L AO ADM SS Estimated Glomerular Filtration Rate 83 ml/min/1.73sqm Invalid Interpretation Code AO Chemistry S Comment on above: Interpretive Data: Stages of Chronic Kidney Disease (CKD) Stage Description eGFR(ml/min/1.73 sq.m.) CKD 1 Normal kidney function or >=90 normal kindney function with possible kidney damage (ex. Proteinuria) CKD 2 Kidney damage with mild loss 60-89 of kidney function CKD 3a Mild to moderate loss of kidney 45-59 function CKD 3b Moderate to severe loss of 30-44 of kindey function CKD 4 Severe loss of kidney function 15-29 CKD 5 Kidney failure <15 Note: (go live 2024) the eGFR calculation was updated to the 2020 CKD-EPI creatinine equation without a race factor to calculate the eGFR results. Globulin 3.1 G/dL Normal 1.5 - 3.8 G/dL AO ADM SS Glucose [Mass/Vol] 97 mg/dL Normal 70 - 105 mg/dL AO ADM SS Potassium [Moles/Vol] 3.7 mmol/L Normal 3.5 - 5.1 mmol/L AO ADM SS Protein [Mass/Vol] 6.8 G/dL Normal 6.4 - 8.2 G/dL AO ADM SS Sodium [Moles/Vol] 138 mmol/L Normal 136 - 145 mmol/L AO ADM SS Urea nitrogen [Mass/Vol] 12 mg/dL Normal 7 - 18 mg/dL AO ADM SS Urea nitrogen/Creatinine [Mass ratio] 12 ratio Normal 7 - 27 ratio AO ADM SS LABORATORYOrdered By: Barbara Rendon on 04-18-2024 Cholesterol [Mass/Vol] 128 mg/dL Normal 0 - 200 mg/dL AO ADM SS Comment on above: Interpretive Data: C holesterol Reference Interval: Less than 200 Desirable 200-239 Borderline high risk 240 and above High risk Cholesterol in HDL [Mass/Vol] 73 mg/dL High 40 - 60 mg/dL AO ADM SS Cholesterol in LDL [Mass/Vol] 46 mg/dL Normal 0 - 130 mg/dL AO ADM SS Triglyceride [Mass/Vol] 43 mg/dL Normal 0 - 150 mg/dL AO ADM SS Comment on above: Interpretive Data: T riglyceride Reference Interval: Less than 150 Normal 150-199 Borderline high risk 200-499 High risk 500 or higher Very high risk LIPIDon 04-18-2024 Cholesterol [Mass/Vol] 128 mg/dL Normal 0-200 [facility] Comment on above: Result Comment: Chol esterol Reference Interval: Less than 200 Desirable 200-239 Borderline high risk 240 and above High risk Performed By: #### L IPID, CMP, GFR ####[address] [place], [place] [address] Cholesterol in HDL [Mass/Vol] 73 mg/dL High 40-60 [facility] Comment on above: Performed By: #### L IPID, CMP, GFR ####[address] [place], [place] [address] Cholesterol in LDL [Mass/Vol] 46 mg/dL Normal 0-130 [facility] Comment on above: Performed By: #### L IPID, CMP, GFR ####[address] [place], [place] [address] Triglyceride [Mass/Vol] 43 mg/dL Normal 0-150 [facility] Comment on above: Result Comment: Trig lyceride Reference Interval: Less than 150 Normal 150-199 Borderline high risk 200-499 High risk 500 or higher Very high risk Performed By: #### L IPID, CMP, GFR ####[address] [place], [place] [address] MALBRon 04-18-2024 U Creatinine 128.9 mg/dL Normal [facility] Comment on above: Performed By: #### M ALBR ####[address] [place], [place] [address] U Microalb 7.3 mg/L Normal [facility] Comment on above: Performed By: #### M ALBR ####[address] [place], [place] [address] Knee 4 or More Viewson 03-15 Knee 4 or More Views [facility] [address] [place] [address] Knee 4 or More Views MR#: [id number] Acct: [id number] Name: TEODORA LEO Rep #: [id number] : 1965 M 58 From: Brandan Lutz MD PCP: Dr. Nazanin Mendoza MD Status: DEP AMB Study: Knee 4 or More Views Date of Exam: 03/15/24 Exam# [id number] Ordering Dr: Simón Ter[place] [id number] STUDY: X-RAY - LEFT KNEE REASON FOR EXAM: Male, 58 years old. Pain. TECHNIQUE: 4 views of the left knee. COMPARISON: None. FINDINGS: Normal visualized distal femur. Normal visualized proximal tibia and fibula. Normal proximal tibiofibular articulation. There is no demonstrated fracture. Normal medial femorotibial compartment. Normal lateral femorotibial compartment. Normal patellofemoral articulation. There is a very small joint effusion. The soft tissue structures are unremarkable. RAD/Knee 4 or More Views IMPRESSION: Very small joint effusion. No demonstrated fracture. Electronically Signed: Brandan Lutz MD at 12:19 EST Reading Location ID and State: [facility] / [place] , Service support , CC: Dr. Simón Teran MD; Dr. Nazanin Mendoza MD Sheet Cutting Operator: Signed Normal [facility] Orthopedic Visit Reporton Orthopedic Visit Report [facility] [address] [place] [address] [address] [place], [place] [address] OFFICE VISIT Date of Service: 03/15/24 MR#: [id number] Acct: [id number] Name: TEODORA LEO Rep #: [id number] : 1965 Provider: Dr. Simón holguin MD Age/Sex: 58/M Location: [facility] Status: Signed with Addenda ADDENDUM by Kathleen Sutton on 03/15/24 at 0915 Office Procedure Documentation entered by Kathleen Sutton 03/15/24 09:15: Ortho Injections Injections Yes Knee Bilateral Is this a patient provided medication?: No Details: Obtained consent for injection. Under sterile conditions, injected the patients bilateral knee with 2cc Kenalog 4cc bupivacaine in each knee. The patient tolerated the injection well without any noted complication. Patient should call our office if redness develops, pain worsens or if they have any concerns. Office Meds Kenalog 40 mg/mL suspension for injection Performing Provider: Simón Teran MD Performing Location: [facility] Administered by: Simón Teran MD on 03/15/24 09:13 Dose Route Admin Location Dispensed Lot Number Expiration Date NDC Man ufacturer 80 mg intra-articular BL knee 2 mL [id number] 06/21/25 3126-8029-27 [employer] Date cc: * Signed Intake Vital Signs 11/10/23 14:52 Height 5 ft 6 in Intake Visit Reasons: BL KNEES Chief Complaint: Left knee Assistant To The President Required: No Accompanied by: Self Is patient in pain?: Yes (B/L knee and B/L hand) Pain scale (1-10): 6 Allergies shellfish derived Allergy (Verified 03/15/24 07:58) Anaphylaxis Medications ???Medication ???Instructions ???Recorded ???Confirmed ???Type amlodipine 5 mg tablet 5 mg PO DAILY 30 days #30 tabs 11/10/23 03/15/24 Rx aspirin 81 mg tablet,delayed 81 mg PO BREAKFAST 90 days #90 tabs 11/10/23 03/15/24 Rx release atorvastatin 10 mg tablet 10 mg PO QHS 90 days #90 tabs 11/10/23 03/15/24 Rx PFSH Medical History Left carpal tunnel syndrome Bilateral knee pain Former smoker Obesity (BMI 30.0-34.9) Incisional hernia Hypokalemia Atypical chest pain Iron deficiency anemia Elevated PSA GERD (gastroesophageal reflux disease) Essential (primary) hypertension Lightheadedness SOB (shortness of breath) Osteoarthritis of left knee Left knee pain Arthritis Restless legs Migraine headache Chewing tobacco nicotine dependence Surgical History Hx of appendectomy Hx of arthroscopy of shoulder Hx of inguinal hernia repair H/O hand surgery Family History Mother Heart disease Diabetes Hypertension Father Cancer Kidney disease Heart disease Social History Smoking Status: Former smoker alcohol intake: never substance use type: does not use HPI BL KNEES Details: This documentation accurately reflects the service provided and the decisions made by me, Dr. Simón Teran MD 03/15/24 0753. Part of today???s visit was documented by [ ], acting as scribe. TEODORA LEO is a 58 year old M here today for bilateral knee pain. Starting to happen on the right side had a prior left side and cortisone injection that worked well. The patient is interested in bilateral cortisone injections. Patient has now had about 6 months to a year of increasing numbness in the left thumb index and middle finger. This happens worse with shoveling he has to do that currently but every day the numbness and tingling is getting worse and last for about an hour. Ortho Exam General General: Yes no acute distress Neurologic: Yes alert and Yes oriented x3 Psychologic: Yes reasonable and appropriate Right Wrist/Hand Skin/Wound: No Swelling and No Ecchymosis Left Wrist/Hand Skin/Wound: Yes CDI, No Swelling, No Ecchymosis, Yes nail intact, Yes capillary refill normal and Yes erythema Left Wrist: Yes Durken's Test, Yes Tinel's and Yes Phalen's Right Knee Skin/Wound: Yes CDI Knee ROM: Yes ROM-Flexion 0-140 Examination: No Med jt line tenderness, No Lat jt line tenderness, No TTP inf pole patella, No Crepitus, No Pain with flexion, No Shaun's Test, No TTP Patellar tendon, No TTP Tibial tubercle, No TTP Pes Anserine and No Illiotibial band tenderness Quad Atrophy: No Stability: NML: Anterior Drawer, NML: Aden, NML: Posterior Drawer, NML: Valgus 0, NML: Valgus 30, NML: Varus 0 and NML: Varus 30 Patella Translation: 2 Apprehension with Lateral Translation: No Patellar Tilt Normal: Yes Patella Grind: No KNEE: NVI, normal gait, normal alignment Left Knee Skin/Wound: Yes CDI, No ecchymosis, No erythema and No swelling Knee ROM: Yes ROM-Flexion (more content not included)... Normal [facility] .GFRon 12-27-2023 GFR 101 ml/min/1.73sqm Normal [facility] Comment on above: Result Comment: GFR Population mean for , Non- Americans Ages 20-29 = 116 mL/min/1.73 sq.m. Ages 30-39 = 107 mL/min/1.73 sq.m. Ages 40-49 = 99 mL/min/1.73 sq.m. Ages 50-59 = 93 mL/min/1.73 sq.m. Ages 60-69 = 85 mL/min/1.73 sq.m. Ages 70+ = 75 mL/min/1.73 sq.m. Chronic Kidney Disease: Less than 60 mL/min/1.73 square meters End Stage Renal Disease: Less than 15 mL/min/1.73 square meters Performed By: #### V IDH, LIPID, CMP, GFR, PSA ####[address] [place], [place] [address] GFR Non- 83 ml/min/1.73sqm Normal [facility] Comment on above: Result Comment: GFR Population mean for , Non- Americans Ages 20-29 = 116 mL/min/1.73 sq.m. Ages 30-39 = 107 mL/min/1.73 sq.m. Ages 40-49 = 99 mL/min/1.73 sq.m. Ages 50-59 = 93 mL/min/1.73 sq.m. Ages 60-69 = 85 mL/min/1.73 sq.m. Ages 70+ = 75 mL/min/1.73 sq.m. Chronic Kidney Disease: Less than 60 mL/min/1.73 square meters End Stage Renal Disease: Less than 15 mL/min/1.73 square meters Performed By: #### V IDH, LIPID, CMP, GFR, PSA ####[address] [place], [place] [address] CMPon 12-27-2023 Albumin Level 3.9 G/dL Normal 3.5-5.0 [facility] Comment on above: Performed By: #### V IDH, LIPID, CMP, GFR, PSA ####[address] [place], [place] [address] Albumin/Globulin [Mass ratio] 1.4 {ratio} Normal 1.1-2.5 [facility] Comment on above: Performed By: #### V IDH, LIPID, CMP, GFR, PSA ####[address] [place], [place] [address] ALP [Catalytic activity/Vol] 78 U/L Normal 40-135 [facility] Comment on above: Performed By: #### V IDH, LIPID, CMP, GFR, PSA ####[address] [place], [place] [address] ALT [Catalytic activity/Vol] 36 U/L Normal 16-63 [facility] Comment on above: Performed By: #### V IDH, LIPID, CMP, GFR, PSA ####[address] [place], [place] [address] AST [Catalytic activity/Vol] 19 U/L Normal 10-40 [facility] Comment on above: Performed By: #### V IDH, LIPID, CMP, GFR, PSA ####[address] [place], [place] [address] Bili Total 1.1 mg/dL High 0.2-1.0 [facility] Comment on above: Result Comment: Use of this assay is not recommended for patients undergoing treatment with eltrombopag due to the potential for falsely elevated results. Performed By: #### V IDH, LIPID, CMP, GFR, PSA ####[address] [place], [place] [address] BUN/Creatinine Ratio 17 ratio Normal 7-27 [facility] Comment on above: Performed By: #### V IDH, LIPID, CMP, GFR, PSA ####[address] [place], [place] [address] Calcium [Mass/Vol] 9.4 mg/dL Normal 8.4-10.2 [facility] Comment on above: Performed By: #### V IDH, LIPID, CMP, GFR, PSA ####[address] [place], [place] [address] Chloride [Moles/Vol] 104 mmol/L Normal 98-107 [facility] Comment on above: Performed By: #### V IDH, LIPID, CMP, GFR, PSA ####[address] [place], [place] [address] CO2 [Moles/Vol] 31 mmol/L High 22-29 [facility] Comment on above: Performed By: #### V IDH, LIPID, CMP, GFR, PSA ####[address] [place], [place] [address] Creatinine [Mass/Vol] 0.93 mg/dL Normal 0.70-1.30 [facility] Comment on above: Result Comment: Test ing performed on Siemens Dimension EXL analyzer using a modified kinetic Andria technique. Performed By: #### V IDH, LIPID, CMP, GFR, PSA ####[address] [place], [place] [address] Electrolyte Balance 7.0 mEq/L Normal 4.0-15.0 [facility] Comment on above: Performed By: #### V IDH, LIPID, CMP, GFR, PSA ####[address] [place], [place] [address] Globulin 2.8 G/dL Normal [facility] Comment on above: Performed By: #### V IDH, LIPID, CMP, GFR, PSA ####[address] [place], [place] [address] Glucose [Mass/Vol] 99 mg/dL Normal 70-105 [facility] Comment on above: Performed By: #### V IDH, LIPID, CMP, GFR, PSA ####[address] [place], [place] [address] Potassium [Moles/Vol] 4.4 mmol/L Normal 3.5-5.1 [facility] Comment on above: Performed By: #### V IDH, LIPID, CMP, GFR, PSA ####[address] [place], [place] [address] Sodium [Moles/Vol] 142 mmol/L Normal 136-145 [facility] Comment on above: Performed By: #### V IDH, LIPID, CMP, GFR, PSA ####[address] [place], [place] [address] Total Protein 6.7 G/dL Normal 6.4-8.2 [facility] Comment on above: Performed By: #### V IDH, LIPID, CMP, GFR, PSA ####[address] [place], [place] [address] Urea nitrogen [Mass/Vol] 16 mg/dL Normal 7-18 [facility] Comment on above: Performed By: #### V IDH, LIPID, CMP, GFR, PSA ####[address] [place], [place] [address] LABORATORYOrdered By: SYSTEM SYSTEM on 12-27-2023 25-hydroxyvitamin D3 [Mass/Vol] 62.0 ng/mL Invalid Interpretation Code AO ADM SS Comment on above: Interpretive Data: I nterpretive Values Based on Total 25([place]) Vitamin D: Deficient <20 ng/mL Insufficient 20 - <30 ng/mL Sufficient 30-100 ng/mL Albumin BCP dye [Mass/Vol] 3.9 G/dL Normal 3.5 - 5.0 G/dL AO ADM SS Albumin/Globulin [Mass ratio] 1.4 {ratio} Normal 1.1 - 2.5 ratio AO ADM SS ALP [Catalytic activity/Vol] 78 U/L Normal 40 - 135 U/L AO ADM SS ALT With P-5'-P [Catalytic activity/Vol] 36 U/L Normal 16 - 63 U/L AO ADM SS AST With P-5'-P [Catalytic activity/Vol] 19 U/L Normal 10 - 40 U/L AO ADM SS Bilirubin [Mass/Vol] 1.1 mg/dL High 0.2 - 1 .0 mg/dL AO ADM SS Comment on above: Interpretive Data: U se of this assay is not recommended for patients undergoing treatment with eltrombopag due to the potential for falsely elevated results. Calcium [Mass/Vol] 9.4 mg/dL Normal 8.4 - 10. 2 mg/dL AO ADM SS Chloride [Moles/Vol] 104 mmol/L Normal 98 - 10 7 mmol/L AO ADM SS CO2 [Moles/Vol] 31 mmol/L High 22 - 29 mmol/L AO ADM SS Creatinine [Mass/Vol] 0.93 mg/dL Normal 0.70 - 1.30 mg/dL AO ADM SS Comment on above: Interpretive Data: T esting performed on Siemens Dimension EXL analyzer using a modified kinetic Andria technique. Electrolyte Balance 7.0 mEq/L Normal 4.0 - 15 .0 mEq/L AO ADM SS GFR/1.73 sq M.predicted among blacks MDRD (S/P/Bld) [Vol rate/Area] 101 ml/min/1.73sqm Invalid Interpretation Code AO Chemistry S Comment on above: Interpretive Data: GFR Population mean for , Non- Americans Ages 20-29 = 116 mL/min/1.73 sq.m. Ages 30-39 = 107 mL/min/1.73 sq.m. Ages 40-49 = 99 mL/min/1.73 sq.m. Ages 50-59 = 93 mL/min/1.73 sq.m. Ages 60-69 = 85 mL/min/1.73 sq.m. Ages 70+ = 75 mL/min/1.73 sq.m. Chronic Kidney Disease: Less than 60 mL/min/1.73 square meters End Stage Renal Disease: Less than 15 mL/min/1.73 square meters GFR/1.73 sq M.predicted among non-blacks MDRD (S/P/Bld) [Vol rate/Area] 83 ml/min/1.73sqm Invalid Interpretation Code AO Chemistry S Comment on above: Interpretive Data: GFR Population mean for , Non- Americans Ages 20-29 = 116 mL/min/1.73 sq.m. Ages 30-39 = 107 mL/min/1.73 sq.m. Ages 40-49 = 99 mL/min/1.73 sq.m. Ages 50-59 = 93 mL/min/1.73 sq.m. Ages 60-69 = 85 mL/min/1.73 sq.m. Ages 70+ = 75 mL/min/1.73 sq.m. Chronic Kidney Disease: Less than 60 mL/min/1.73 square meters End Stage Renal Disease: Less than 15 mL/min/1.73 square meters Globulin 2.8 G/dL Invalid Interpretation Code AO ADM SS Glucose [Mass/Vol] 99 mg/dL Normal 70 - 105 mg/dL AO ADM SS Potassium [Moles/Vol] 4.4 mmol/L Normal 3.5 - 5.1 mmol/L AO ADM SS Prostate specific Ag [Mass/Vol] 0.78 ng/mL Normal 0.00 - 4.00 ng/mL AO ADM SS Protein [Mass/Vol] 6.7 G/dL Normal 6.4 - 8.2 G/dL AO ADM SS Sodium [Moles/Vol] 142 mmol/L Normal 136 - 145 mmol/L AO ADM SS Urea nitrogen [Mass/Vol] 16 mg/dL Normal 7 - 18 mg/dL AO ADM SS Urea nitrogen/Creatinine [Mass ratio] 17 ratio Normal 7 - 27 ratio AO ADM SS LABORATORYOrdered By: Manish Riggins on 12-27-2023 Cholesterol [Mass/Vol] 191 mg/dL Normal 0 - 200 mg/dL AO ADM SS Comment on above: Interpretive Data: C holesterol Reference Interval: Less than 200 Desirable 200-239 Borderline high risk 240 and above High risk Cholesterol in HDL [Mass/Vol] 64 mg/dL High 40 - 60 mg/dL AO ADM SS Cholesterol in LDL [Mass/Vol] 111 mg/dL Normal 0 - 130 mg/dL AO ADM SS Triglyceride [Mass/Vol] 79 mg/dL Normal 0 - 150 mg/dL AO ADM SS Comment on above: Interpretive Data: T riglyceride Reference Interval: Less than 150 Normal 150-199 Borderline high risk 200-499 High risk 500 or higher Very high risk LIPIDon 12-27-2023 Cholesterol [Mass/Vol] 191 mg/dL Normal 0-200 [facility] Comment on above: Result Comment: Chol esterol Reference Interval: Less than 200 Desirable 200-239 Borderline high risk 240 and above High risk Performed By: #### V IDH, LIPID, CMP, GFR, PSA ####[address] [place], [place] [address] Cholesterol in HDL [Mass/Vol] 64 mg/dL High 40-60 [facility] Comment on above: Performed By: #### V IDH, LIPID, CMP, GFR, PSA ####[address] [place], [place] [address] Cholesterol in LDL [Mass/Vol] 111 mg/dL Normal 0-130 [facility] Comment on above: Performed By: #### V IDH, LIPID, CMP, GFR, PSA ####[address] [place], [place] [address] Triglyceride [Mass/Vol] 79 mg/dL Normal 0-150 [facility] Comment on above: Result Comment: Trig lyceride Reference Interval: Less than 150 Normal 150-199 Borderline high risk 200-499 High risk 500 or higher Very high risk Performed By: #### V IDH, LIPID, CMP, GFR, PSA ####[address] [place], [place] [address] PSAon 12-27-2023 Prostate Specific Antigen 0.78 ng/mL Normal 0.00-4.00 [facility] Comment on above: Performed By: #### V IDH, LIPID, CMP, GFR, PSA ####[address] [place], [place] [address] VIDHon 12-27-2023 Vit. D 25-Hydroxy 62.0 ng/mL Normal [facility] Comment on above: Result Comment: Inte rpretive Values Based on Total 25([place]) Vitamin D: Deficient <20 ng/mL Insufficient 20 - <30 ng/mL Sufficient 30-100 ng/mL Performed By: #### V IDH, LIPID, CMP, GFR, PSA ####[address] [address] 12 Lead EKGon 11-10-2023 12 Lead EKG [facility] [address] [place] [address] 12 Lead EKG 11/09/23 2123 MR#: [id number] Acct: [id number] Name: TEODORA LEO Rep #: [id number] : 1965 58 From: Bowen Aguilera MD Attending Dr: Dr. Radames Maurer DO Status : DIS IN Ordering Dr: Alejandra Lutz DO Date: 11/10/23 Location: [facility] Sex: M C Admitted: 11/09/23 Test Reason : CP ADMIN Blood Pressure : / mmHG Vent. Rate : 057 BPM Atrial Rate : 057 BPM P-R Int : 184 ms QRS Dur : 100 ms QT Int : 414 ms P-R-T Axes : 033 046 027 degrees QTc Int : 402 ms Sinus bradycardia with sinus arrhythmia Otherwise normal ECG When compared with ECG of 09-NOV-2023 12:42, MANUAL COMPARISON REQUIRED, DATA IS UNCONFIRMED Confirmed by Bowen Aguilera ([id number]), telegraph editor NAREN LOCKE ([id number]) on 11/14/2023 10:51:18 AM Referred By: Confirmed By:Bowen Aguilera 11/14/23 1051 Date Bowen Aguilera MD CC: Dr. Radames Maurer DO; Dr. Alejandra Lutz DO; Dr. Nazanin Mendoza MD Signed Normal [facility] CBC-Complete Blood Cnt No Di ffon 11-10-2023 Erythrocyte distribution width (RBC) [Ratio] 12.3 % Normal 11.6-14.6 [facility] Comment on above: Performed By: #### L 100.0500 ####[facility] [address] [place], [address] Hematocrit (Bld) [Volume fraction] 44.1 % Normal 40-54 [facility] Comment on above: Performed By: #### L 100.0500 ####[facility] [address] [place], [address] Hemoglobin (Bld) [Mass/Vol] 15.0 g/dL Normal 13.0-16.5 [facility] Comment on above: Performed By: #### L 100.0500 ####[facility] [address] [place], [address] MCH (RBC) [Entitic mass] 30.1 pg Normal 27.0-32.0 [facility] Comment on above: Performed By: #### L 100.0500 ####[facility] [address] [place], [address] MCHC (RBC) [Mass/Vol] 34.0 g/dL Normal 32-36 [facility] Comment on above: Performed By: #### L 100.0500 ####[facility] [address] [place], [address] MCV (RBC) [Entitic vol] 88.6 fL Normal 80-94 [facility] Comment on above: Performed By: #### L 100.0500 ####[facility] [address] [place], [address] Platelet mean volume (Bld) [Entitic vol] 8.7 fL Normal 6.2-12.0 [facility] Comment on above: Performed By: #### L 100.0500 ####[facility] [address] [place], [address] Platelets (Bld) [#/Vol] 336 10*3/uL Normal 150-450 [facility] Comment on above: Performed By: #### L 100.0500 ####[facility] [address] [place], [address] RBC (Bld) [#/Vol] 4.98 10*6/uL Normal 4.6-6.2 [facility] Comment on above: Performed By: #### L 100.0500 ####[facility] [address] [place], [address] RDW SD 39.6 fl Normal 35.1-43.9 [facility] Comment on above: Performed By: #### L 100.0500 ####[facility] [address] [place], [address] WBC (Bld) [#/Vol] 5.1 10*3/uL Normal 4.4-11.0 [facility] Comment on above: Performed By: #### L 100.0500 ####[facility] [address] [place], [address] Cardiac Cath Diagnosticon Cardiac Cath Diagnostic [facility] Imaging Services [address] [place] [address] Cardiac Cath Diagnostic MR#: [id number] Acct: [id number] Name: TEODORA LEO Rep #: [id number] : 1965 58 From: Omar Medina MD PCP: Dr. Nazanin Mendoza MD Status:ADM IN Patient Name: TEODORA LEO Study Date: 11/10/2023 Performing: Omar Medina MD Ht: 66 inches 167.64 cm : 1965 Wt: 163.8 lbs 74.3 kg Age: 58 Gender: male BSA: 1.84 PROCEDURE(S) PERFORMED [id number]-([id number])[facility] CLINICAL PROFILE AND INDICATIONS Indications: Suspected CAD, Worsening Angina Heart Failure: None CAD Presentations: Unstable angina. CONCLUSIONS RECOMMENDATIONS Medical therapy Risk factor modification DESCRIPTION OF PROCEDURE The patient arrived to the procedure lab. The risks and benefits of the procedure as well as a full description of our services here and current unavailability of surgical backup were fully explained to the patient and/or their significant other prior to the catheterization. The Timeout was completed, verifying the correct patient and procedure. The patient's procedural site was prepped and draped in the usual fashion. Local anesthetic was given subcutaneously to right radial region with Lidocaine 2%. Using a modified Seldinger technique, arterial access was obtained via the right radial artery, a 6Fr sheath was inserted. Left Coronary Artery selective angiography was performed in multiple views using a 5 Fr. 4.0 [place] catheter. LV to AO pullback pressures were then recorded. Right Coronary Artery selective angiography was then performed in multiple views using a 5 Fr. 4.0 [place] catheter.The arterial sheath was pulled and a TR Band was applied for hemostasis CORONARY ANGIOGRAPHY DOMINANCE: Co- Dominant LEFT HEART ASSESSMENT LVEDP: 20 mmHg LEFT MAIN: No significant disease noted LEFT ANTERIOR DESCENDING ARTERY: LAD: Tubular 30% Proximal lesion in LAD Tubular 30% Proximal lesion in LAD CIRCUMFLEX ARTERY: CIRCUMFLEX: Luminal Irregularities 20% Proximal lesion in circumflex RIGHT CORONARY ARTERY: RCA: Tubular 50% Proximal lesion in RCA COMPLICATIONS No Complications PROCEDURE MEDICATIONS Versed 1 mg IV Fentanyl 50 mcg IV Oxygen: 2 L/min via nasal cannula Benadryl 50 mg IV @ 11/10/2023 12:04:44 Solu-medrol 125 mg IV 11/10/2023 12:04:33 SUMMARY OF HEMODYNAMIC DATA Time AIR REST ECG 12:01:20 AO 108/76 (91) SA 12:22:06 LV 104/18, 20 12:25:13 LV 109/18, 21 12:25:21 LVp 111/18, 20 12:25:26 AOp 103/76 (92) 12:25:33 12:38:19 Signed By Omar Medina MD On 11/10/2023 12:41:59 Omar Medina MD 11/10/23 1242 Date [facility] Signature: Date (if indicated) CC: Dr. Radames Maurer DO; Dr. Omar Medina MD; Dr. Nazanin Mendoza MD Date Dictated: 11/10/23 1212 Date Transcribed: 11/10/23 1241 Sheet Cutting Operator: AR Signed Normal [facility] Comprehensive Metabolic Prof ilon 11-10-2023 Albumin [Mass/Vol] 3.4 g/dL Normal 3.2-5.0 [facility] Comment on above: Performed By: #### L 500.4050, L500.4100, L501.9985 ####[facility] [address] [place], [address] Albumin/Globulin [Mass ratio] 1.1 {ratio} Normal 0.9-2.4 [facility] Comment on above: Performed By: #### L 500.4050, L500.4100, L501.9985 ####[facility] [address] [place], [address] ALK P 65 U/L Normal 45-117 [facility] Comment on above: Performed By: #### L 500.4050, L500.4100, L501.9985 ####[facility] [address] [place], [address] ALT [Catalytic activity/Vol] 28 U/L Normal 16-61 [facility] Comment on above: Performed By: #### L 500.4050, L500.4100, L501.9985 ####[facility] [address] [place], [address] AST [Catalytic activity/Vol] 21 U/L Normal 15-37 [facility] Comment on above: Performed By: #### L 500.4050, L500.4100, L501.9985 ####[facility] [address] [place], [address] Bilirubin [Mass/Vol] 1.30 mg/dL High 0.20-1.00 [facility] Comment on above: Result Comment: For patients on eltrombopag therapy, use of Dimension [place]odell TBIL is not recommended. Performed By: #### L 500.4050, L500.4100, L501.9985 ####[facility] [address] [place], [address] BUN/CRE 13.8 RATIO Normal 10-20 [facility] Comment on above: Performed By: #### L 500.4050, L500.4100, L501.9985 ####[facility] [address] [place], [address] CA,Total 9.2 mg/dL Normal 8.5-10.1 [facility] Comment on above: Performed By: #### L 500.4050, L500.4100, L501.9985 ####[facility] [address] [place], [address] Chloride [Moles/Vol] 109 mmol/L High 98-107 [facility] Comment on above: Performed By: #### L 500.4050, L500.4100, L501.9985 ####[facility] [address] [place], [address] CO2 [Moles/Vol] 24.0 mmol/L Normal 21.0-32.0 [facility] Comment on above: Performed By: #### L 500.4050, L500.4100, L501.9985 ####[facility] [address] [place], [address] Creatinine [Mass/Vol] 0.73 mg/dL Normal 0.70-1.30 [facility] Comment on above: Result Comment: The validity of the calculated GFR GFRAA in patients over 70 years has not been determined. Clinical correlation is essential. Performed By: #### L 500.4050, L500.4100, L501.9985 ####[facility] [address] [place], [address] ECRCL 99.54 ml/min Normal [facility] Comment on above: Performed By: #### L 500.4050, L500.4100, L501.9985 ####[facility] [address] [place], [address] EST GFR - AA 143 mL/min Normal >60 [facility] Comment on above: Result Comment: Afri can [place] GFR Calc Performed By: #### L 500.4050, L500.4100, L501.9985 ####[facility] [address] [place], [address] GAP 8 Normal 5-15 [facility] Comment on above: Performed By: #### L 500.4050, L500.4100, L501.9985 ####[facility] [address] [place], [address] GFR/1.73 sq M.predicted among non-blacks MDRD (S/P/Bld) [Vol rate/Area] 118 mL/min/{1.73_m2} Normal >60 [facility] Comment on above: Result Comment: Non- GFR Calc Performed By: #### L 500.4050, L500.4100, L501.9985 ####[facility] [address] [place], [address] Globulin (S) [Mass/Vol] 3.1 g/dL Normal 2.2-4.2 [facility] Comment on above: Performed By: #### L 500.4050, L500.4100, L501.9985 ####[facility] [address] [place], [address] Glucose [Mass/Vol] 95 mg/dL Normal 74-106 [facility] Comment on above: Performed By: #### L 500.4050, L500.4100, L501.9985 ####[facility] [address] [place], [address] Potassium [Moles/Vol] 4.0 mmol/L Normal 3.5-5.1 [facility] Comment on above: Performed By: #### L 500.4050, L500.4100, L501.9985 ####[facility] [address] [place], [address] Sodium [Moles/Vol] 141 mmol/L Normal 136-145 [facility] Comment on above: Performed By: #### L 500.4050, L500.4100, L501.9985 ####[facility] [address] [place], [address] T PROT 6.5 g/dL Normal 6.4-8.2 [facility] Comment on above: Performed By: #### L 500.4050, L500.4100, L501.9985 ####[facility] [address] [place], [address] Urea nitrogen [Mass/Vol] 10 mg/dL Normal 7-18 [facility] Comment on above: Performed By: #### L 500.4050, L500.4100, L501.9985 ####[facility] [address] [place], [address] Consultation - Cardiologyon 11-10-2023 Consultation - Cardiology [facility] Medical Records Department [address] [place] [address] Consultation - Cardiology 11/10/23 1155 MR#: [id number] Acct: [id number] Name: TEODORA LEO Rep #: [id number] : 1965 58 From: Omar Medina MD PCP: Dr. Nazanin Mendoza MD Status:ADM IN Location: [place] [address] Assessment Plan Assessment/Plan (1) Unstable angina: PLAN: Even though the patient stress test done earlier this month was negative for inducible ischemia, clinical suspicion remains for unstable angina pectoris. I therefore offered patient coronary angiography with possible revascularization. Risks benefits and alternatives discussed. Possible coronary CT angio also offered. Patient understands and wishes to proceed with conventional coronary angiography with possible revascularization. Further recommendations following results of coronary angiography. HPI Consult Data Date of Consult: 11/10/23 HPI Narrative Reason for Consultation: Unstable angina HPI Narrative: This gentleman had his first episode of chest discomfort around . That episode was with strenuous exertion. Subsequently he was evaluated at an outside hospital. A Lexiscan stress Myoview was done which was negative for inducible ischemia. Normal LV systolic function. Since then, patient continues to have chest discomfort. He has had an episode of chest discomfort at rest. This time he presented to the emergency room with chest discomfort with minimal exertion. Per patient, there is radiation to the left shoulder and arm. Positive diaphoresis. Positive associated shortness of breath. PFSH Medical History Former smoker Obesity (BMI 30.0-34.9) Incisional hernia Hypokalemia Atypical chest pain Iron deficiency anemia Elevated PSA GERD (gastroesophageal reflux disease) Essential (primary) hypertension Lightheadedness SOB (shortness of breath) Osteoarthritis of left knee Left knee pain Arthritis Restless legs Migraine headache Chewing tobacco nicotine dependence Home Medications ???Medication ???Instructions ???Recorded ???Last Taken ???Type NK 11/09/23 Unknown History Allergy/AdvReac Type Severity Reaction Status Date / Time shellfish derived Allergy Anaphylaxis Verified 02/25/23 12:55 Family History (Updated 11/09/23 @ 20:[address] Alejandra Lutz DO) Mother Heart disease Diabetes Hypertension Father Cancer Kidney disease Heart disease Surgical History Hx of appendectomy Hx of arthroscopy of shoulder Hx of inguinal hernia repair H/O hand surgery Social History Smoking Status: Former smoker alcohol intake: never substance use type: does not use Physical Exam Narrative Comfortable. No apparent distress. Heart sounds 1 and 2 are normal. No murmurs or rubs are noted. Chest is clear to auscultation bilaterally. Alert oriented x 3. No ankle edema noted. Risk Stratification Risk Stratification Applicable: No Objective Data Vital Signs: Vital Signs Temp Pulse Resp BP Pulse Ox O2 Del Method 97.8 F 62 16 117/79 97 Room Air 11/10/23 08:21 11/10/23 10:35 11/10/23 08:21 11/10/23 08:21 11/10/23 08:21 11/10/23 08:21 Oxygen Delivery Method Room Air Weight: 163 lb 12.855 oz Body Mass Index (BMI) 26.4 Intake Output: Intake and Output for Last 24 Hours 11/08/23 11/09/23 11/10/23 23:59 23:59 23:59 Intake Total 966.25 / 966.25 Balance 966.25 / 966.25 Lab / Micro Data Attestation: I reviewed the patient's lab results. 11/10/23 05:26 11/10/23 05:26 Labs: Laboratory Results - last 24 hr 11/09/23 12:42: WBC 8.3, RBC 5.27, Hgb 16.1, Hct 45.4, MCV 86.1, MCH 30.6, MCHC 35.5, RDW Std Deviation 37.6, RDW Coeff of [place] 11.9, Plt Count 377, MPV 8.4, Immature Gran % (Auto) 0.500, Neut % (Auto) 67.1, Lymph % (Auto) 24.2, [place] % (Auto) 7.2, Eos % (Auto) 0.5, Baso % (Auto) 0.5, Absolute Neuts (auto) 5.6, Absolute Lymphs (auto) 2.01, Nucleated RBC % 0, Sodium 134 L, Potassium 3.5, Chloride 104, Carbon Dioxide 20.0 L, Anion Gap 10, BUN 12, Creatinine 0.85, Est GFR (MDRD) Af Amer 119, Est GFR (MDRD) Non-Af 98, BUN/Creatinine Ratio 14.1, Glucose 118 H, Hemoglobin A1c 5.4, Calcium 10.2 H, Troponin I High Sens 6 11/09/23 14:30: Troponin I High Sens 6 11/09/23 21:54: Troponin I High Sens 7 11/10/23 05:26: WBC 5.1, RBC 4.98, Hgb 15.0, Hct 44.1, MCV 88.6, MCH 30.1, MCHC 34.0, RDW Std Deviation 39.6, RDW Coeff of [place] 12.3, Plt Count 336, MPV 8.7, Sodium 141, Potassium 4.0, Chloride 109 H, Carbon Dioxide 24.0, Anion Gap 8, BUN 10, Creatinine 0.73, Estim Creat Clear Calc 99.54, Est GFR (MDRD) Af Amer 143, Est GFR (MDRD) Non-Af 118, BUN/Creatinine Ratio 13.8, Glucose 95, Hemoglobin A1c 5.3, Calcium 9.2, Total Bilirubin 1.30 H, AST 2 (more content not included)... Normal [facility] Discharge Instructionon 10-22 Discharge Instruction [facility] Medical Records Department [address] [place] [id number] Instructions for Home/Discharge Instructions 11/10/23 1316 MR#: [id number] Acct: [id number] Name: TEODORA LEO Rep #: [id number] : 1965 58 From: Radames Maurer DO PCP: Dr. Nazanin Mendoza MD Status:ADM IN Discharge Instructions Diet Discharge Diet: No restrictions Activity Discharge Activity: No Restrictions Follow Up Care Test Results: Test results from this visit will be discussed in further detail at your follow-up appointment, if applicable. Discharge Plan Admission Admit Date/Time: 11/09/23 16:57 Primary Reason for Your Visit: Chest pain Attending Provider: Radames Maurer Primary Care Provider: Nazanin Mendoza Consulting Providers: Omar Medina; Alejandra Lutz Instructions Additional Instructions / Restrictions: Please start taking the medication as noted below on a daily basis. A cardiac event monitor will be sent to you in the mail; please wear this for 14 days and results will be sent to the balance bridge assembler to review. Discharge Orders/Prescriptions Prescriptions: New atorvastatin 10 mg Tablet 10 mg PO QHS 90 Days Qty: 90 0RF amlodipine 5 mg Tablet 5 mg PO DAILY 30 Days Qty: 30 2RF aspirin 81 mg Tablet,Delayed Release (Dr/Ec) 81 mg PO BREAKFAST 90 Days Qty: 90 0RF Other Ambulatory Orders: 14 Day Event Recorder Preventi (Urgent) Timeframe: 2 Weeks Facility: [facility] - Location: Cardiovascular Services Ordered By: Dr. Radames Maurer Referrals / Follow Up: Nazanin Mendoza MD [Primary Care Provider] - Disposition Disposition (needs filled in before D/C Order can be placed): Home, Self Care 11/10/23 1334 Radames Maurer DO CC: Dr. Omar Medina MD; Dr. Alejandra Lutz DO; Dr. Nazanin Mendoza MD Signed Normal [facility] Hemoglobin A1con 11-10-2023 HbA1c (Bld) [Mass fraction] 5.3 % Normal 3.8-5.6 [facility] Comment on above: Result Comment: Norm al < 5.7 % Prediabetic 5.7 - 6.4 % Diabetic >or= 6.5 % Please note range changes. Performed By: #### L 500.4050, L500.4100, L501.9985 ####[facility] [address] [place], [address] Lipid Profileon 11-10-2023 Cholesterol [Mass/Vol] 158 mg/dL Normal 200 [facility] Comment on above: Result Comment: <200 mg/dL Desirable 200-240 mg/dL Borderline >240 mg/dL High Risk Performed By: #### L 500.4050, L500.4100, L501.9985 ####[facility] [address] [place], [address] Cholesterol in HDL [Mass/Vol] 57 mg/dL Normal [facility] Comment on above: Result Comment: The drugs N-Acetylcysteine and Metamizole may falsely depress this assay. Reference Range HDL <40 mg/dL Low HDL Cholesterol HDL >or= 60 mg/dL High HDL Cholesterol Performed By: #### L 500.4050, L500.4100, L501.9985 ####[facility] [address] [place], [address] Cholesterol in LDL [Mass/Vol] 87 mg/dL Normal 0-130 [facility] Comment on above: Performed By: #### L 500.4050, L500.4100, L501.9985 ####[facility] [address] [place], [address] Cholesterol in VLDL [Mass/Vol] 14 mg/dL Normal 5-40 [facility] Comment on above: Performed By: #### L 500.4050, L500.4100, L501.9985 ####[facility] [address] [place], [address] Triglyceride [Mass/Vol] 69 mg/dL Normal [facility] Comment on above: Result Comment: The drugs N-Acetylcysteine and Metamizole may falsely depress this assay. Serum Triglycerides Reference Interval Normal <150 mg/dL Borderline high 150 - 199 mg/dL High 200 - 499 mg/dL Very High > or = 500 mg/dL Performed By: #### L 500.4050, L500.4100, L501.9985 ####[facility] [address] [facility] [place], [address] 12 Lead EKGon 11-09-2023 12 Lead EKG [facility] Cardiovascular Services [address] [place] [address] 12 Lead EKG 11/10/23 0526 MR#: [id number] Acct: [id number] Name: TEODORA LEO Rep #: [id number] : 1965 58 From: Bowen Aguilera MD Attending Dr: Dr. Radames Maurer, DO Status : DIS IN Ordering Dr: Alejandra Lutz DO Date: 11/09/23 Location: [facility] Sex: M C Admitted: 11/09/23 Test Reason : MORNING EKG Blood Pressure : / mmHG Vent. Rate : 053 BPM Atrial Rate : 053 BPM P-R Int : 186 ms QRS Dur : 100 ms QT Int : 408 ms P-R-T Axes : 040 047 028 degrees QTc Int : 382 ms Sinus bradycardia Otherwise normal ECG When compared with ECG of 09-NOV-2023 21:23, MANUAL COMPARISON REQUIRED, DATA IS UNCONFIRMED Confirmed by Bowen Aguilera ([id number]), telegraph editor NAREN LOCKE ([id number]) on 11/14/2023 10:50:47 AM Referred By: Confirmed By:Bowen Aguilera 11/14/23 1050 Date Bowen Aguilera MD CC: Dr. Radames Maurer DO; Dr. Alejandra Lutz DO; Dr. Nazanin Mendoza MD Signed [facility] 12 Lead EKG [facility] Cardiovascular Services [address] [place] [address] 12 Lead EKG 11/09/23 1242 MR#: [id number] Acct: [id number] Name: TEODORA LEO Rep #: [id number] : 1965 58 From: Bowen Aguilera MD Attending Dr: Dr. Radames Maurer DO Status : DIS IN Ordering Dr: Wing Flanagan MD Date: 11/09/23 Location: [facility] Sex: M C Admitted: 11/09/23 Test Reason : CP Blood Pressure : / mmHG Vent. Rate : 095 BPM Atrial Rate : 095 BPM P-R Int : 172 ms QRS Dur : 096 ms QT Int : 366 ms P-R-T Axes : 027 045 025 degrees QTc Int : 459 ms Normal sinus rhythm Normal ECG Confirmed by Bowen Aguilera ([id number]), telegraph editor NAREN LOCKE ([id number]) on 11/14/2023 10:40:40 AM Referred By: UG/TB Confirmed By:Bowen Aguilera 11/14/23 1040 Date Bowen Aguilera MD CC: Dr. Radames Maurer DO; Dr. Nazanin Mendoza MD; Dr. Wing Flanagan MD Signed [facility] Basic Metabolic Profile (BMP )on 11-09-2023 BUN/CRE 14.1 RATIO Normal - [facility] Comment on above: Order Comment: 1 Y Performed By: #### L 501.5425, L500.2500, L100.0100 #### [facility] [address] [place], [address] CA,Total 10.2 mg/dL High 8.5-10.1 [facility] Comment on above: Order Comment: 1 Y Performed By: #### L 501.5425, L500.2500, L100.0100 #### [facility] [address] [place], [address] Chloride [Moles/Vol] 104 mmol/L Normal 98-107 [facility] Comment on above: Order Comment: 1 Y Performed By: #### L 501.5425, L500.2500, L100.0100 #### [facility] [address] [place], [address] CO2 [Moles/Vol] 20.0 mmol/L Low 21.0-32.0 [facility] Comment on above: Order Comment: 1 Y Performed By: #### L 501.5425, L500.2500, L100.0100 #### [facility] [address] [place], [address] Creatinine [Mass/Vol] 0.85 mg/dL Normal 0.70-1.30 [facility] Comment on above: Order Comment: 1 Y Result Comment: The validity of the calculated GFR GFRAA in patients over 70 years has not been determined. Clinical correlation is essential. Performed By: #### L 501.5425, L500.2500, L100.0100 #### [facility] [address] [place], [address] EST GFR - AA 119 mL/min Normal >60 [facility] Comment on above: Order Comment: 1 Y Result Comment: Afri can [place]ib[place] GFR Calc Performed By: #### L 501.5425, L500.2500, L100.0100 #### [facility] [address] [place], [address] GAP 10 Normal 5-15 [facility] Comment on above: Order Comment: 1 Y Performed By: #### L 501.5425, L500.2500, L100.0100 #### [facility] [address] [place], [address] GFR/1.73 sq M.predicted among non-blacks MDRD (S/P/Bld) [Vol rate/Area] 98 mL/min/{1.73_m2} Normal >60 [facility] Comment on above: Order Comment: 1 Y Result Comment: Non- GFR Calc Performed By: #### L 501.5425, L500.2500, L100.0100 #### [facility] [address] [place], [address] Glucose [Mass/Vol] 118 mg/dL High 74-106 [facility] Comment on above: Order Comment: 1 Y Result Comment: Fast ing Glucose result from 100 to 125 mg/dL suggests IMPAIRED HOMEOSTASIS per A.D.A. criteria. Performed By: #### L 501.5425, L500.2500, L100.0100 #### [facility] [address] [place], [address] Potassium [Moles/Vol] 3.5 mmol/L Normal 3.5-5.1 [facility] Comment on above: Order Comment: 1 Y Performed By: #### L 501.5425, L500.2500, L100.0100 #### [facility] [address] [place], [address] Sodium [Moles/Vol] 134 mmol/L Low 136-145 [facility] Comment on above: Order Comment: 1 Y Performed By: #### L 501.5425, L500.2500, L100.0100 #### [facility] [address] [place], [address] Urea nitrogen [Mass/Vol] 12 mg/dL Normal 7-18 [facility] Comment on above: Order Comment: 1 Y Performed By: #### L 501.5425, L500.2500, L100.0100 #### [facility] [address] [place], [address] CBC W/Diff, Automatedon 10-22 Absolute Lymph 2.01 X10 3/uL Normal 0.83-4.51 [facility] Comment on above: Performed By: #### L 501.5425, L500.2500, L100.0100 #### [facility] [address] [place], [address] Absolute Neut 5.6 X10 3/uL Normal 2.0-7.7 [facility] Comment on above: Performed By: #### L 501.5425, L500.2500, L100.0100 #### [facility] [address] [place], [address] Basophils/100 WBC (Bld) 0.5 % Normal 0-1 [facility] Comment on above: Performed By: #### L 501.5425, L500.2500, L100.0100 #### [facility] [address] [place], [address] Eosinophils/100 WBC (Bld) 0.5 % Normal 0-5 [facility] Comment on above: Performed By: #### L 501.5425, L500.2500, L100.0100 #### [facility] [address] [place], [address] Erythrocyte distribution width (RBC) [Ratio] 11.9 % Normal 11.6-14.6 [facility] Comment on above: Performed By: #### L 501.5425, L500.2500, L100.0100 #### [facility] [address] [place], [address] Hematocrit (Bld) [Volume fraction] 45.4 % Normal 40-54 [facility] Comment on above: Performed By: #### L 501.5425, L500.2500, L100.0100 #### [facility] [address] [place], [address] Hemoglobin (Bld) [Mass/Vol] 16.1 g/dL Normal 13.0-16.5 [facility] Comment on above: Performed By: #### L 501.5425, L500.2500, L100.0100 #### [facility] [address] [place], [address] IG% 0.500 Normal 0.0-0.9 [facility] Comment on above: Result Comment: IG% - Immature Granulocytes (promyelocytes, myelocytes and metamyelocytes) > 1% indicates that a LEFT SHIFT is Present. Performed By: #### L 501.5425, L500.2500, L100.0100 #### [facility] [address] [place], [address] Lymphocytes/100 WBC (Bld) 24.2 % Normal 19-41 [facility] Comment on above: Performed By: #### L 501.5425, L500.2500, L100.0100 #### [facility] [address] [place], [address] MCH (RBC) [Entitic mass] 30.6 pg Normal 27.0-32.0 [facility] Comment on above: Performed By: #### L 501.5425, L500.2500, L100.0100 #### [facility] [address] [place], [address] MCHC (RBC) [Mass/Vol] 35.5 g/dL Normal 32-36 [facility] Comment on above: Performed By: #### L 501.5425, L500.2500, L100.0100 #### [facility] [address] [place], [address] MCV (RBC) [Entitic vol] 86.1 fL Normal 80-94 [facility] Comment on above: Performed By: #### L 501.5425, L500.2500, L100.0100 #### [facility] [address] [place], [address] Monocytes/100 WBC (Bld) 7.2 % Normal 0-10 [facility] Comment on above: Performed By: #### L 501.5425, L500.2500, L100.0100 #### [facility] [address] [place], [address] Neutrophils/100 WBC (Bld) 67.1 % Normal 47-70 [facility] Comment on above: Performed By: #### L 501.5425, L500.2500, L100.0100 #### [facility] [address] [place], [address] Nucleated RBC (Bld) [#/Vol] 0 10*3/uL Normal 0-5 [facility] Comment on above: Performed By: #### L 501.5425, L500.2500, L100.0100 #### [facility] [address] [place], [address] Platelet mean volume (Bld) [Entitic vol] 8.4 fL Normal 6.2-12.0 [facility] Comment on above: Performed By: #### L 501.5425, L500.2500, L100.0100 #### [facility] [address] [place], [address] Platelets (Bld) [#/Vol] 377 10*3/uL Normal 150-450 [facility] Comment on above: Performed By: #### L 501.5425, L500.2500, L100.0100 #### [facility] [address] [place], [address] RBC (Bld) [#/Vol] 5.27 10*6/uL Normal 4.6-6.2 [facility] Comment on above: Performed By: #### L 501.5425, L500.2500, L100.0100 #### [facility] [address] [place], [address] RDW SD 37.6 fl Normal 35.1-43.9 [facility] Comment on above: Performed By: #### L 501.5425, L500.2500, L100.0100 #### [facility] [address] [place], [address] WBC (Bld) [#/Vol] 8.3 10*3/uL Normal 4.4-11.0 [facility] Comment on above: Performed By: #### L 501.5425, L500.2500, L100.0100 #### [facility] [address] [place], [address] Chest 1 View (Portable)on Chest 1 View (Portable) [facility] Imaging Services [address] [place] [address] Chest 1 View (Portable) MR#: [id number] Acct: [id number] Name: TEODORA LEO Rep #: [id number] : 1965 M 58 From: Michele hawkins MD PCP: Dr. Nazanin Mendoza MD Status: [facility] ER Study: Chest 1 View (Portable) Date of Exam: 11/09/23 Exam# [id number] Ordering Dr: [place] [id number] STUDY: X-RAY CHEST REASON FOR EXAM: Male, 58 years old. Chest pain TECHNIQUE: Single AP portable view of the chest. COMPARISON: Comparison is made with prior study dated November 14, 2008. FINDINGS: EKG electrodes are seen. The lungs are clear and expanded. There is no demonstrated pleural abnormality. Normal size heart. Normal mediastinum and hilary. Normal visualized pulmonary arteries. There is atherosclerotic tortuosity of the aortic arch and descending thoracic aorta. There are diffuse degenerative changes of the visualized thoracic spine. Normal visualized ribs, clavicles, and shoulders. Hiatal hernia. RAD/Chest 1 View (Portable) IMPRESSION: Hiatal hernia. The lungs are clear. Electronically Signed: Michele Larson MD at 13:42 EDT Reading Location ID and State: [facility] / [place] , Service support , CC: Dr. Nazanin Mendoza MD; Dr. Wing Flanagan MD Sheet Cutting Operator: Signed Normal [facility] Emergency Department Summary on 11-09-2023 Emergency Department Summary [facility] Medical Records Department [address] [place] [address] Emergency Department Summary 11/09/23 MR#: [id number] Acct: [id number] Name: TEODORA LEO Rep #: [id number] : 1965 58 From: Wnig Flanagan MD PCP: Dr. Nazanin Mendoza MD Status:DIS IN Location: [place] [address] HPI History of Present Illness Chief Complaint: Chest Pain Detail of Chief Complaint: Chest pain at work sharp pressure with nausea and diaphoresis Informant: patient and spouse/S.O. Onset/Context/Timing Onset: Today and Hours Activity at onset: sudden and onset (During strenuous activity at work. 3 minutes after activity) Timing: Intermittent Quality: Positive for Pressure and Sharp Location: Substernal Current Severity: Gone Maximum Severity: Severe Worsened By: Exertion Relieved By: Rest Associated Symptoms: Positive for Nausea, Diaphoresis, Dyspnea and - (According to future son-in-law he came into the shop and did not look well. He was sweaty.) Narrative Narrative: Patient is a 58-year-old male. He has history of iron deficiency anemia, GERD, essential hypertension, restless leg syndrome and migraine headaches who presents from work because of chest sharp pressure sensation with diaphoresis nausea and shortness of breath. This came on with exertional activity. Stop 3 minutes after activity. I did radiate to both shoulders. He also states it went down his left arm. He has had 2 other events prior to today. 1 was a holiday weekend and last week. The episode occurred over the weekend was when he was shoveling sand. He was admitted to [facility]. He had a nuclear stress test that was read as negative. I did get a copy of the stress test. This event was more significant and with strenuous activity. Recent Illness/Hospitalization : Yes (HPI narrative) CVD Risk Factors: Positive for Hypertension; Negative for Diabetes, Hypercholesterolemia or Family History 1' PE Risk Factors: Negative for Recent Travel/Surgery, Recent Immobilization, Prior DVT or PE, Cancer or OCP + Smoking + >/=35 TAD Risk Factors: Positive for Hypertension; Negative for Marfan's Syndrome or Family History PFSH PFSH Medical History Obesity (BMI 30.0-34.9) Incisional hernia Hypokalemia Atypical chest pain Iron deficiency anemia Elevated PSA GERD (gastroesophageal reflux disease) Essential (primary) hypertension Lightheadedness SOB (shortness of breath) Osteoarthritis of left knee Left knee pain Arthritis Restless legs Migraine headache Chewing tobacco nicotine dependence Home Medications ???Medication ???Instructions ???Recorded ???Last Taken ???Type NK 11/09/23 Unknown History Allergy/AdvReac Type Severity Reaction Status Date / Time shellfish derived Allergy Anaphylaxis Verified 02/25/23 12:55 Family History Mother Heart disease Diabetes Hypertension Father Cancer Kidney disease Surgical History Hx of appendectomy Hx of arthroscopy of shoulder Hx of inguinal hernia repair H/O hand surgery Social History Smoking Status: Former smoker alcohol intake: never substance use type: does not use ROS ROS ED Constitutional Constitutional ED: Denies chills, fever(s), subjective or sweats Eyes Eyes: Reports none ENT ENT ED: Denies ear pain or rhinorrhea Cardiovascular Cardiovascular: Reports as per HPI; Denies orthopnea or paroxysmal nocturnal dyspnea Respiratory/Chest Respiratory/Chest: Reports dyspnea; Denies cough, orthopnea or paroxysmal nocturnal dyspnea Gastrointestinal Gastrointestinal: Reports nausea; Denies abdominal pain or vomiting Genitourinary Genitourinary ED: Denies dysuria, hematuria or urinary frequency Musculoskeletal Musculoskeletal: Denies back pain or neck pain Integumentary Denies rash Neurologic Neurologic: Denies weakness Hematologic/Lymphatic Hematologic/Lymphatic: Denies easy bleeding or easy bruising EXAM Physical Exam Const Vital Signs: 11/09/23 12:42 11/09/23 13:06 11/09/23 14:28 Temperature 97.8 F 98.4 F Temperature Source Temporal Oral Pulse Rate 103 H 90 72 Respiratory Rate 24 H 16 16 Blood Pressure 178/100 H 137/97 H 126/84 H Blood Pressure Mean 126 110 98 Pulse Ox 98 96 96 Oxygen Delivery Method Room Air Room Air 11/09/23 15:26 11/09/23 16:35 Temperature Temperature Source Pulse Rate 67 67 Respiratory Rate 14 Blood Pressure 123/91 H 122/87 H Blood Pressure Mean 101 98 Pulse Ox 93 Oxygen Delivery Method Room Air Positive well nourished General Appearance ED: Negative for pallor HEENT Reports moist mucous membranes normocephalic and atraumat (more content not included)... Normal [facility] H AND P Exam - Hospitaliston 11-09-2023 H&P Exam - Hospitalist [facility] Medical Records Department [address] [place] [address] H P Exam - Hospitalist 11/09/23 1704 MR#: [id number] Acct: [id number] Name: TEODORA LEO Rep #: [id number] : 1965 58 From: Alejandra Lutz DO PCP: Dr. Nazanin Mendoza MD Status:ADM JANNIE Location: [place] [id number] HPI - General General Date of Admission: 11/09/23 Date of Service: 11/09/23 Chief Complaint: Intermittent chest pain HPI Narrative TEODORA LEO, is a 58 M who presented to the emergency department at [facility] on 11/09/2023 due to intermittent diaphoresis, shortness of breath, and chest pain. His assists with his history and they report that he first had symptoms on Labor Day. 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 It aborted and he had no symptoms for about a week and then he had a recurrence of symptoms which led him to go to the emergency department at all. Symptoms at that time were the same however they occurred while he was at rest. He was admitted and a stress test and an echocardiogram were performed at that time. Echocardiogram showed an EF of 55 to 60% with no wall motion abnormalities and stress test was negative for any inducible ischemia. He was discharged home. That was done on 11/01/2023. Today he had a recurrent episode that again occurred while he was at work but doing minimal exertion. Symptoms were the same as previous. He reported that the initially put him on blood pressure medication is he had a blood pressure spike however then he was removed from blood pressure medication as it dropped his blood pressure too much. He states that he has a family history of coronary disease on his father side. His father's first event he believes was when his father was in his 60s. He does indicate he has been under stress lately as his daughter is getting on Tuesday. At the present time he is having no symptoms. Vital signs on presentation showed a temperature of 97.8, heart rate 103 with repeated 72, blood pressure initially was 178/100 with repeat at 137/97, respiratory rate was 16 and oxygen saturations were 98% on room air. CBC is unremarkable. Chemistry panel shows only very mild hyponatremia with a sodium of 134, renal function is normal but patient does seem to be mildly dehydrated as his serum bicarb is 20 with a calcium of 10.2. Troponin were normal x 2 at 6 and 6 respectively. EKG showed normal sinus rhythm with normal intervals and no ST-T wave changes concerning for acute ischemia. Chest x-ray showed hiatal hernia and lungs were clear. [facility] Medical History Former smoker Obesity (BMI 30.0-34.9) Incisional hernia Hypokalemia Atypical chest pain Iron deficiency anemia Elevated PSA GERD (gastroesophageal reflux disease) Essential (primary) hypertension Lightheadedness SOB (shortness of breath) Osteoarthritis of left knee Left knee pain Arthritis Restless legs Migraine headache Chewing tobacco nicotine dependence Home Medications ???Medication ???Instructions ???Recorded ???Last Taken ???Type NK 11/09/23 Unknown History Allergy/AdvReac Type Severity Reaction Status Date / Time shellfish derived Allergy Anaphylaxis Verified 02/25/23 12:55 Family History (Updated 11/09/23 @ 20:[address] Alejandra Lutz, ) Mother Heart disease Diabetes Hypertension Father Cancer Kidney disease Heart disease Surgical History Hx of appendectomy Hx of arthroscopy of shoulder Hx of inguinal hernia repair H/O hand surgery Social History Smoking Status: Former smoker alcohol intake: never substance use type: does not use ROS Constitutional Constitutional: Reports fatigue and weakness; Denies anorexia, change in weight, chills, fever(s), malaise, night sweats or other Eyes Eyes: Denies blurry vision, change in eye color, change in vision, discharge from eye(s), double vision, erythema, eye pain, loss of vision or other ENT HEENT: Denies abnormal hearing, dysphagia, ear pain, epistaxis, headache(s), hearing loss, nasal congestion, nasal discharge, post nasal drip, sinus pressure, sore throat or other Cardiovascular Cardiovascular: Reports chest pain, dyspnea on exertion, lightheadedness and other Details: Presyncope/diaphoresis ; Denies claudication, edema, orthopnea, palpitations, paroxysmal nocturnal dyspnea, rapid heart rate or syncope Respiratory/Chest Respiratory/Chest: Reports shortness of breath with exertion; Denies cough, dyspnea, excessive phlegm production, hemoptysis, productive cough, shortness of breath at rest, wheezing or other Gastrointestinal Gastrointestinal: Denies abdominal pain, coffee g (more content not included)... Normal [facility] Hemoglobin A1con 11-09-2023 HbA1c (Bld) [Mass fraction] 5.4 % Normal 3.8-5.6 [facility] Comment on above: Result Comment: Norm al < 5.7 % Prediabetic 5.7 - 6.4 % Diabetic >or= 6.5 % Please note range changes. Performed By: #### L 501.9985 ####[facility] [address] [place], [address] L501.4020on 11-09-2023 TROPONIN-I HS 7 pg/mL Normal 3.0-78.0 [facility] Comment on above: Order Comment: 'TROP ' Serial specimen #1, #2 or #3: 3 Result Comment: Clement eagle Note: New Test Units and Gender Specific Reference Ranges. For more information see Policy Stat Procedure [place] High Sensitivity Troponin (TNIH) and attachments. Performed By: #### L 501.4020 #### [facility] [address] [place], [address] TROPONIN-I HS 6 pg/mL Normal 3.0-78.0 [facility] Comment on above: Result Comment: Plecheryl eagle Note: New Test Units and Gender Specific Reference Ranges. For more information see Policy Stat Procedure [place] High Sensitivity Troponin (TNIH) and attachments. Performed By: #### L 501.4020 ####[facility] [address] [place], [address] L501.5425on 11-09-2023 TROPONIN-I HS 6 pg/mL Normal 3.0-78.0 [facility] Comment on above: Order Comment: 1 Y Result Comment: Clement eagle Note: New Test Units and Gender Specific Reference Ranges. For more information see Policy Stat Procedure [place] High Sensitivity Troponin (TNIH) and attachments. Performed By: #### L 501.5425, L500.2500, L100.0100 #### [facility] [address] [place], [address] .Auto Diffon 11-01-2023 Basophil, Absolute 0.0 10 3/mcL Normal 0.0-0.2 [facility] Comment on above: Performed By: #### G FR, TROPHS, CBC, MG, BMP, ANEU, ADIFF #### [place] [address] [place], [place] [address] Basophils/100 WBC (Bld) 0.3 % Normal 0.0-2.5 [facility] Comment on above: Performed By: #### G FR, TROPHS, CBC, MG, BMP, ANEU, ADIFF #### [address] [address] Eosinophil, Absolute 0.2 10 3/mcL Normal 0.0-0.4 [facility] Comment on above: Performed By: #### G FR, TROPHS, CBC, MG, BMP, ANEU, ADIFF #### [address] [address] Eosinophils/100 WBC (Bld) 2.3 % Normal 0.0-7.0 [facility] Comment on above: Performed By: #### G FR, TROPHS, CBC, MG, BMP, ANEU, ADIFF #### [address] [address] Lymphocyte, Absolute 1.6 10 3/mcL Normal 0.8-3.9 [facility] Comment on above: Performed By: #### G FR, TROPHS, CBC, MG, BMP, ANEU, ADIFF #### [address] [address] Lymphocytes/100 WBC (Bld) 23.3 % Normal 10.0-50.0 [facility] Comment on above: Performed By: #### G FR, TROPHS, CBC, MG, BMP, ANEU, ADIFF #### [address] [address] Monocyte, Absolute 0.7 10 3/mcL Normal 0.2-1.0 [facility] Comment on above: Performed By: #### G FR, TROPHS, CBC, MG, BMP, ANEU, ADIFF #### [address] [address] Monocytes/100 WBC (Bld) 10.1 % Normal 1.7-13.0 [facility] Comment on above: Performed By: #### G FR, TROPHS, CBC, MG, BMP, ANEU, ADIFF #### [address] [address] Neutrophils/100 WBC (Bld) 64.0 % Normal 37.0-80.0 [facility] Comment on above: Performed By: #### G FR, TROPHS, CBC, MG, BMP, ANEU, ADIFF #### [address] [address] .GFRon 11-01-2023 GFR 100 ml/min/1.73sqm Normal [facility] Comment on above: Result Comment: GFR Population mean for , Non- Americans Ages 20-29 = 116 mL/min/1.73 sq.m. Ages 30-39 = 107 mL/min/1.73 sq.m. Ages 40-49 = 99 mL/min/1.73 sq.m. Ages 50-59 = 93 mL/min/1.73 sq.m. Ages 60-69 = 85 mL/min/1.73 sq.m. Ages 70+ = 75 mL/min/1.73 sq.m. Chronic Kidney Disease: Less than 60 mL/min/1.73 square meters End Stage Renal Disease: Less than 15 mL/min/1.73 square meters Performed By: #### G FR, TROPHS, CBC, MG, BMP, ANEU, ADIFF #### [address] [address] GFR Non- 82 ml/min/1.73sqm Normal [facility] Comment on above: Result Comment: GFR Population mean for , Non- Americans Ages 20-29 = 116 mL/min/1.73 sq.m. Ages 30-39 = 107 mL/min/1.73 sq.m. Ages 40-49 = 99 mL/min/1.73 sq.m. Ages 50-59 = 93 mL/min/1.73 sq.m. Ages 60-69 = 85 mL/min/1.73 sq.m. Ages 70+ = 75 mL/min/1.73 sq.m. Chronic Kidney Disease: Less than 60 mL/min/1.73 square meters End Stage Renal Disease: Less than 15 mL/min/1.73 square meters Performed By: #### G FR, TROPHS, CBC, MG, BMP, ANEU, ADIFF #### [address] [address] .NEUABSon 11-01-2023 Neutrophil, Absolute 4.4 10 3/mcL Normal 2.9-6.2 [facility] Comment on above: Performed By: #### G FR, TROPHS, CBC, MG, BMP, ANEU, ADIFF #### [address] [address] BMPon 11-01-2023 BUN/Creatinine Ratio 13 ratio Normal 7-27 [facility] Comment on above: Performed By: #### G FR, TROPHS, CBC, MG, BMP, ANEU, ADIFF #### [address] [address] Calcium [Mass/Vol] 9.3 mg/dL Normal 8.4-10.2 [facility] Comment on above: Performed By: #### G FR, TROPHS, CBC, MG, BMP, ANEU, ADIFF #### [address] [address] Chloride [Moles/Vol] 104 mmol/L Normal 98-107 [facility] Comment on above: Performed By: #### G FR, TROPHS, CBC, MG, BMP, ANEU, ADIFF #### [address] [address] CO2 [Moles/Vol] 31 mmol/L High 22-29 [facility] Comment on above: Performed By: #### G FR, TROPHS, CBC, MG, BMP, ANEU, ADIFF #### [address] [address] Creatinine [Mass/Vol] 0.94 mg/dL Normal 0.70-1.30 [facility] Comment on above: Result Comment: Test ing performed on Siemens Dimension EXL analyzer using a modified kinetic Andria technique. Performed By: #### G FR, TROPHS, CBC, MG, BMP, ANEU, ADIFF #### [address] [address] Electrolyte Balance 5.0 mEq/L Normal 4.0-15.0 [facility] Comment on above: Performed By: #### G FR, TROPHS, CBC, MG, BMP, ANEU, ADIFF #### [address] [address] Glucose [Mass/Vol] 92 mg/dL Normal 70-105 [facility] Comment on above: Performed By: #### G FR, TROPHS, CBC, MG, BMP, ANEU, ADIFF #### [address] [address] Potassium [Moles/Vol] 4.5 mmol/L Normal 3.5-5.1 [facility] Comment on above: Performed By: #### G FR, TROPHS, CBC, MG, BMP, ANEU, ADIFF #### [address] [address] Sodium [Moles/Vol] 140 mmol/L Normal 136-145 [facility] Comment on above: Performed By: #### G FR, TROPHS, CBC, MG, BMP, ANEU, ADIFF #### [address] [address] Urea nitrogen [Mass/Vol] 12 mg/dL Normal 7-18 [facility] Comment on above: Performed By: #### G FR, TROPHS, CBC, MG, BMP, ANEU, ADIFF #### [address] [address] CBCon 11-01-2023 Erythrocyte distribution width (RBC) [Ratio] 13.5 % Normal 11.5-14.5 [facility] Comment on above: Performed By: #### G FR, TROPHS, CBC, MG, BMP, ANEU, ADIFF #### [address] [address] Hematocrit (Bld) [Volume fraction] 45.6 % Normal 42.0-52.0 [facility] Comment on above: Performed By: #### G FR, TROPHS, CBC, MG, BMP, ANEU, ADIFF #### [address] [address] Hgb 15.7 G/dL Normal 14.0-18.0 [facility] Comment on above: Performed By: #### G FR, TROPHS, CBC, MG, BMP, ANEU, ADIFF #### [address] [address] MCH (RBC) [Entitic mass] 31.2 pg Normal 27.0-31.2 [facility] Comment on above: Performed By: #### G FR, TROPHS, CBC, MG, BMP, ANEU, ADIFF #### [address] [address] MCHC 34.5 G/dL Normal 31.8-35.4 [facility] Comment on above: Performed By: #### G FR, TROPHS, CBC, MG, BMP, ANEU, ADIFF #### [address] [address] MCV (RBC) [Entitic vol] 90.4 fL Normal 80.0-94.0 [facility] Comment on above: Performed By: #### G FR, TROPHS, CBC, MG, BMP, ANEU, ADIFF #### [address] [address] Platelet 322 10 3/mcL Normal 130-400 [facility] Comment on above: Performed By: #### G FR, TROPHS, CBC, MG, BMP, ANEU, ADIFF #### [address] [address] Platelet mean volume (Bld) [Entitic vol] 6.8 fL Low 7.4-10.4 [facility] Comment on above: Performed By: #### G FR, TROPHS, CBC, MG, BMP, ANEU, ADIFF #### [address] [address] RBC 5.04 10 6/mcL Normal 4.04-6.13 [facility] Comment on above: Performed By: #### G FR, TROPHS, CBC, MG, BMP, ANEU, ADIFF #### [address] [address] WBC 6.9 10 3/mcL Normal 4.6-10.8 [facility] Comment on above: Performed By: #### G FR, TROPHS, CBC, MG, BMP, ANEU, ADIFF #### [address] [place] [address] [place], [place] [address] LABORATORYOrdered By: SYSTEM SYSTEM on 11-01-2023 Basophils (Bld) [#/Vol] 0.0 103/mcL Normal 0.0 - 0.2 10^3/mcL AO Workflow SS Basophils/100 WBC (Bld) 0.3 % Normal 0.0 - 2.5 % AO Workflow SS Calcium [Mass/Vol] 9.3 mg/dL Normal 8.4 - 10. 2 mg/dL AO ADM SS Chloride [Moles/Vol] 104 mmol/L Normal 98 - 10 7 mmol/L AO ADM SS CO2 [Moles/Vol] 31 mmol/L High 22 - 29 mmol/L AO ADM SS Creatinine [Mass/Vol] 0.94 mg/dL Normal 0.70 - 1.30 mg/dL AO ADM SS Comment on above: Interpretive Data: T esting performed on Siemens Dimension EXL analyzer using a modified kinetic Andria technique. Electrolyte Balance 5.0 mEq/L Normal 4.0 - 15 .0 mEq/L AO ADM SS Eosinophil, Absolute 0.2 103/mcL Normal 0.0 - 0 .4 10^3/mcL AO Workflow SS Eosinophils/100 WBC (Bld) 2.3 % Normal 0.0 - 7.0 % AO Workflow SS Erythrocyte distribution width (RBC) [Ratio] 13.5 % Normal 11.5 - 14.5 % AO Workflow SS GFR/1.73 sq M.predicted among blacks MDRD (S/P/Bld) [Vol rate/Area] 100 ml/min/1.73sqm Invalid Interpretation Code AO Chemistry S Comment on above: Interpretive Data: GFR Population mean for , Non- Americans Ages 20-29 = 116 mL/min/1.73 sq.m. Ages 30-39 = 107 mL/min/1.73 sq.m. Ages 40-49 = 99 mL/min/1.73 sq.m. Ages 50-59 = 93 mL/min/1.73 sq.m. Ages 60-69 = 85 mL/min/1.73 sq.m. Ages 70+ = 75 mL/min/1.73 sq.m. Chronic Kidney Disease: Less than 60 mL/min/1.73 square meters End Stage Renal Disease: Less than 15 mL/min/1.73 square meters GFR/1.73 sq M.predicted among non-blacks MDRD (S/P/Bld) [Vol rate/Area] 82 ml/min/1.73sqm Invalid Interpretation Code AO Chemistry S Comment on above: Interpretive Data: GFR Population mean for , Non- Americans Ages 20-29 = 116 mL/min/1.73 sq.m. Ages 30-39 = 107 mL/min/1.73 sq.m. Ages 40-49 = 99 mL/min/1.73 sq.m. Ages 50-59 = 93 mL/min/1.73 sq.m. Ages 60-69 = 85 mL/min/1.73 sq.m. Ages 70+ = 75 mL/min/1.73 sq.m. Chronic Kidney Disease: Less than 60 mL/min/1.73 square meters End Stage Renal Disease: Less than 15 mL/min/1.73 square meters Glucose [Mass/Vol] 92 mg/dL Normal 70 - 105 mg/dL AO ADM SS Hematocrit (Bld) [Volume fraction] 45.6 % Normal 42.0 - 52.0 % AO Workflow SS Hemoglobin (Bld) [Mass/Vol] 15.7 G/dL Normal 14.0 - 18.0 G/dL AO Workflow SS Lymphocytes (Bld) [#/Vol] 1.6 103/mcL Normal 0.8 - 3.9 10^3/mcL AO Workflow SS Lymphocytes/100 WBC (Bld) 23.3 % Normal 10.0 - 50.0 % AO Workflow SS Magnesium [Mass/Vol] 1.5 mg/dL Low 1.8 - 2 .4 mg/dL AO ADM SS MCH (RBC) [Entitic mass] 31.2 pg Normal 27.0 - 31.2 pg AO Workflow SS MCHC 34.5 G/dL Normal 31.8 - 35.4 G/dL AO Workflow SS MCV (RBC) [Entitic vol] 90.4 fL Normal 80.0 - 94.0 fL AO Workflow SS Monocytes (Bld) [#/Vol] 0.7 103/mcL Normal 0.2 - 1.0 10^3/mcL AO Workflow SS Monocytes/100 WBC (Bld) 10.1 % Normal 1.7 - 13.0 % AO Workflow SS Neutrophils (Bld) [#/Vol] 4.4 103/mcL Normal 2.9 - 6.2 10^3/mcL AO Workflow SS Neutrophils/100 WBC (Bld) 64.0 % Normal 37.0 - 80.0 % AO Workflow SS Platelet mean volume (Bld) [Entitic vol] 6.8 fL Low 7.4 - 10.4 fL AO Workflow SS Platelets (Bld) [#/Vol] 322 103/mcL Normal 130 - 400 10^3/mcL AO Workflow SS Potassium [Moles/Vol] 4.5 mmol/L Normal 3.5 - 5.1 mmol/L AO ADM SS RBC (Bld) [#/Vol] 5.04 106/mcL Normal 4.04 - 6.1 3 10^6/mcL AO Workflow SS Sodium [Moles/Vol] 140 mmol/L Normal 136 - 145 mmol/L AO ADM SS Troponin I.cardiac DL <= 0.01 ng/mL [Mass/Vol] 7 ng/L Normal 0 - 76 ng/L AO ADM SS Comment on above: Interpretive Data: H igh Sensitive Troponin I Reference Ranges: Female: 0-51 ng/L Male: 0-76 ng/L Testing performed on [employer] using a homogeneous sandwich chemiluminescent immunoassay based on Azimuth technology. Urea nitrogen [Mass/Vol] 12 mg/dL Normal 7 - 18 mg/dL AO ADM SS Urea nitrogen/Creatinine [Mass ratio] 13 ratio Normal 7 - 27 ratio AO ADM SS WBC (Bld) [#/Vol] 6.9 103/mcL Normal 4.6 - 10.8 10^3/mcL AO Workflow SS MGon 11-01-2023 Magnesium [Mass/Vol] 1.5 mg/dL Low 1.8-2.4 [facility] Comment on above: Performed By: #### G FR, TROPHS, CBC, MG, BMP, ANEU, ADIFF #### [place] [address] NM MYOCARDIAL SPECT STRESS/R ESTon 11-01-2023 NM MYOCARDIAL SPECT STRESS/REST ORIGINAL NM MYOCARDIAL SPECT STRESS/REST CLINICAL STATEMENT: cp TECHNIQUE: Lexiscan dose: 0.4 mg Radiopharmaceutical (stress): Tc-99m Sestamibi Dose:31.1 mCi Radiopharmaceutical (rest): Tc-99m Sestamibi Dose:10.4 mCi SPECT acquisition and processing Reconstruction and reorientation of SPECT images into short axis, vertical and horizontal long axis planes Quantitative LVEF assessment COMPARISON:none REPORT:Overall fair quality study. Mild motion noted on review of rotating raw images. No clear fixed or reversible defects. Left ventricular ejection fraction is 46%, end diastolic volume is 46 ml and TID ratio is 0.99. IMPRESSION: No clear evidence of ischemia or infarction. Low normal left ventricular ejection fraction, please correlate with an echo. ECG portion will be dictated separately. Interpreted By: Tristan Stockton Preliminary Report By: Tristan Stockton Electronically Signed By: Tristan Stockton Dictated Date: 11/01/2023 4:24:44 PM Prelim Date: 11/01/2023 4:24:44 PM Sign Date: 11/01/2023 4:28:18 PM Ordering Provider:Aleshia Bedolla Normal [facility] 11-01-2023 High Sensitivity Troponin I 7 ng/L Normal 0-76 [facility] Comment on above: Result Comment: High Sensitive Troponin I Reference Ranges: Female: 0-51 ng/L Male: 0-76 ng/L Testing performed on [employer] using a homogeneous sandwich chemiluminescent immunoassay based on Azimuth technology. Performed By: #### G FR, TROPHS, CBC, MG, BMP, ANEU, ADIFF #### [place] [address] [place], [place] [address] .Auto Diffon 10-31-2023 Basophil, Absolute 0.0 10 3/mcL Normal 0.0-0.2 [facility] Comment on above: Performed By: #### B MP, PBNP, TROPHS, ANEU, ADIFF, CBC, MDW, GFR ####[facility] [place], [place] [address] Basophils/100 WBC (Bld) 0.5 % Normal 0.0-2.5 [facility] Comment on above: Performed By: #### B MP, PBNP, TROPHS, ANEU, ADIFF, CBC, MDW, GFR ####[facility] [place], [place] [address] Eosinophil, Absolute 0.0 10 3/mcL Normal 0.0-0.4 [facility] Comment on above: Performed By: #### B MP, PBNP, TROPHS, ANEU, ADIFF, CBC, MDW, GFR ####[address] [place], [place] [address] Eosinophils/100 WBC (Bld) 0.6 % Normal 0.0-7.0 [facility] Comment on above: Performed By: #### B MP, PBNP, TROPHS, ANEU, ADIFF, CBC, MDW, GFR ####[address] [place], [place] [address] Lymphocyte, Absolute 0.9 10 3/mcL Normal 0.8-3.9 [facility] Comment on above: Performed By: #### B MP, PBNP, TROPHS, ANEU, ADIFF, CBC, MDW, GFR ####[address] [address] Lymphocytes/100 WBC (Bld) 15.5 % Normal 10.0-50.0 [facility] Comment on above: Performed By: #### B MP, PBNP, TROPHS, ANEU, ADIFF, CBC, MDW, GFR ####[address] [address] Monocyte, Absolute 0.4 10 3/mcL Normal 0.2-1.0 [facility] Comment on above: Performed By: #### B MP, PBNP, TROPHS, ANEU, ADIFF, CBC, MDW, GFR ####[address] [address] Monocytes/100 WBC (Bld) 7.6 % Normal 1.7-13.0 [facility] Comment on above: Performed By: #### B MP, PBNP, TROPHS, ANEU, ADIFF, CBC, MDW, GFR ####[address] [address] Neutrophils/100 WBC (Bld) 75.8 % Normal 37.0-80.0 [facility] Comment on above: Performed By: #### B MP, PBNP, TROPHS, ANEU, ADIFF, CBC, MDW, GFR ####[address] [place], [place] [address] .GFRon 10-31-2023 GFR Non- 104 ml/min/1.73sqm Normal [facility] Comment on above: Result Comment: GFR Population mean for , Non- Americans Ages 20-29 = 116 mL/min/1.73 sq.m. Ages 30-39 = 107 mL/min/1.73 sq.m. Ages 40-49 = 99 mL/min/1.73 sq.m. Ages 50-59 = 93 mL/min/1.73 sq.m. Ages 60-69 = 85 mL/min/1.73 sq.m. Ages 70+ = 75 mL/min/1.73 sq.m. Chronic Kidney Disease: Less than 60 mL/min/1.73 square meters End Stage Renal Disease: Less than 15 mL/min/1.73 square meters Performed By: #### B MP, PBNP, TROPHS, ANEU, ADIFF, CBC, W, GFR ####[address] [place], [place] [address] GFR 126 ml/min/1.73sqm Normal [facility] Comment on above: Result Comment: GFR Population mean for , Non- Americans Ages 20-29 = 116 mL/min/1.73 sq.m. Ages 30-39 = 107 mL/min/1.73 sq.m. Ages 40-49 = 99 mL/min/1.73 sq.m. Ages 50-59 = 93 mL/min/1.73 sq.m. Ages 60-69 = 85 mL/min/1.73 sq.m. Ages 70+ = 75 mL/min/1.73 sq.m. Chronic Kidney Disease: Less than 60 mL/min/1.73 square meters End Stage Renal Disease: Less than 15 mL/min/1.73 square meters Performed By: #### B MP, PBNP, TROPHS, ANEU, ADIFF, CBC, MDW, GFR ####[address] [place], [place] [address] .MDWon 10-31-2023 Monocyte Distribution Width 18.26 Normal 0.00-20.00 [facility] Comment on above: Result Comment: For ED adult patients suspected of sepsis, MDW<=20.0 does not rule out sepsis or risk of sepsis Performed By: #### B MP, PBNP, TROPHS, ANEU, ADIFF, CBC, MDW, GFR ####[facility] [place], [place] [address] .NEUABSon 10-31-2023 Neutrophil, Absolute 4.3 10 3/mcL Normal 2.9-6.2 [facility] Comment on above: Performed By: #### B MP, PBNP, TROPHS, ANEU, ADIFF, CBC, MDW, GFR ####[facility] [place], [place] [address] BMPon 10-31-2023 BUN/Creatinine Ratio 18 ratio Normal 7-27 [facility] Comment on above: Performed By: #### B MP, PBNP, TROPHS, ANEU, ADIFF, CBC, MDW, GFR ####[place] [place], [place] [address] Calcium [Mass/Vol] 9.4 mg/dL Normal 8.4-10.2 [facility] Comment on above: Performed By: #### B MP, PBNP, TROPHS, ANEU, ADIFF, CBC, MDW, GFR ####[place] [address] [place], [place] [address] Chloride [Moles/Vol] 104 mmol/L Normal 98-107 [facility] Comment on above: Performed By: #### B MP, PBNP, TROPHS, ANEU, ADIFF, CBC, MDW, GFR ####[facility] [place], [place] [address] CO2 [Moles/Vol] 28 mmol/L Normal 22-29 [facility] Comment on above: Performed By: #### B MP, PBNP, TROPHS, ANEU, ADIFF, CBC, MDW, GFR ####[facility] [place], [place] [address] Creatinine [Mass/Vol] 0.77 mg/dL Normal 0.70-1.30 [facility] Comment on above: Result Comment: Test ing performed on Siemens Dimension EXL analyzer using a modified kinetic Andria technique. Performed By: #### B MP, PBNP, TROPHS, ANEU, ADIFF, CBC, MDW, GFR ####[address] [place], [place] [address] Electrolyte Balance 7.0 mEq/L Normal 4.0-15.0 [facility] Comment on above: Performed By: #### B MP, PBNP, TROPHS, ANEU, ADIFF, CBC, MDW, GFR ####[address] [place], [place] [address] Glucose [Mass/Vol] 85 mg/dL Normal 70-105 [facility] Comment on above: Performed By: #### B MP, PBNP, TROPHS, ANEU, ADIFF, CBC, MDW, GFR ####[address] [place], [place] [address] Potassium [Moles/Vol] 4.0 mmol/L Normal 3.5-5.1 [facility] Comment on above: Performed By: #### B MP, PBNP, TROPHS, ANEU, ADIFF, CBC, MDW, GFR ####[id number] [place], [place] [address] Sodium [Moles/Vol] 139 mmol/L Normal 136-145 [facility] Comment on above: Performed By: #### B MP, PBNP, TROPHS, ANEU, ADIFF, CBC, MDW, GFR ####[id number] [place], [place] [address] Urea nitrogen [Mass/Vol] 14 mg/dL Normal 7-18 [facility] Comment on above: Performed By: #### B MP, PBNP, TROPHS, ANEU, ADIFF, CBC, MDW, GFR ####[id number] [place], [place] [address] CBCon 10-31-2023 Erythrocyte distribution width (RBC) [Ratio] 13.2 % Normal 11.5-14.5 [facility] Comment on above: Performed By: #### B MP, PBNP, TROPHS, ANEU, ADIFF, CBC, MDW, GFR ####[id number] [place], [place] [address] Hematocrit (Bld) [Volume fraction] 43.2 % Normal 42.0-52.0 [facility] Comment on above: Performed By: #### B MP, PBNP, TROPHS, ANEU, ADIFF, CBC, MDW, GFR ####[id number] [place], [place] [address] Hgb 15.3 G/dL Normal 14.0-18.0 [facility] Comment on above: Performed By: #### B MP, PBNP, TROPHS, ANEU, ADIFF, CBC, MDW, GFR ####[address] [place], [place] [address] MCH (RBC) [Entitic mass] 31.8 pg High 27.0-31.2 [facility] Comment on above: Performed By: #### B MP, PBNP, TROPHS, ANEU, ADIFF, CBC, MDW, GFR ####[id number] [place], [place] [address] MCHC 35.4 G/dL Normal 31.8-35.4 [facility] Comment on above: Performed By: #### B MP, PBNP, TROPHS, ANEU, ADIFF, CBC, MDW, GFR ####[id number] [place], [place] [address] MCV (RBC) [Entitic vol] 89.8 fL Normal 80.0-94.0 [facility] Comment on above: Performed By: #### B MP, PBNP, TROPHS, ANEU, ADIFF, CBC, MDW, GFR ####[address] [place], [place] [address] Platelet 320 10 3/mcL Normal 130-400 [facility] Comment on above: Performed By: #### B MP, PBNP, TROPHS, ANEU, ADIFF, CBC, MDW, GFR ####[facility] [place], [place] [address] Platelet mean volume (Bld) [Entitic vol] 6.4 fL Low 7.4-10.4 [facility] Comment on above: Performed By: #### B MP, PBNP, TROPHS, ANEU, ADIFF, CBC, MDW, GFR ####[address] [place], [place] [address] RBC 4.81 10 6/mcL Normal 4.04-6.13 [facility] Comment on above: Performed By: #### B MP, PBNP, TROPHS, ANEU, ADIFF, CBC, MDW, GFR ####[address] [place], [place] [address] WBC 5.7 10 3/mcL Normal 4.6-10.8 [facility] Comment on above: Performed By: #### B MP, PBNP, TROPHS, ANEU, ADIFF, CBC, MDW, GFR ####[address] [place], [place] [address] LABORATORYOrdered By: SYSTEM SYSTEM on 10-31-2023 Troponin I.cardiac DL <= 0.01 ng/mL [Mass/Vol] 6 ng/L Normal 0 - 76 ng/L AO ADM SS Comment on above: Interpretive Data: H igh Sensitive Troponin I Reference Ranges: Female: 0-51 ng/L Male: 0-76 ng/L Testing performed on [employer] using a homogeneous sandwich chemiluminescent immunoassay based on Azimuth technology. Troponin I.cardiac DL <= 0.01 ng/mL [Mass/Vol] 5 ng/L Normal 0 - 76 ng/L AO ADM SS Comment on above: Interpretive Data: H igh Sensitive Troponin I Reference Ranges: Female: 0-51 ng/L Male: 0-76 ng/L Testing performed on [employer] using a homogeneous sandwich chemiluminescent immunoassay based on Azimuth technology. Basophils (Bld) [#/Vol] 0.0 103/mcL Normal 0.0 - 0.2 10^3/mcL AO Workflow SS Basophils/100 WBC (Bld) 0.5 % Normal 0.0 - 2.5 % AO Workflow SS Calcium [Mass/Vol] 9.4 mg/dL Normal 8.4 - 10. 2 mg/dL AO ADM SS Chloride [Moles/Vol] 104 mmol/L Normal 98 - 10 7 mmol/L AO ADM SS CO2 [Moles/Vol] 28 mmol/L Normal 22 - 29 mmol/L AO ADM SS Creatinine [Mass/Vol] 0.77 mg/dL Normal 0.70 - 1.30 mg/dL AO ADM SS Comment on above: Interpretive Data: T esting performed on Siemens Dimension EXL analyzer using a modified kinetic Andria technique. Electrolyte Balance 7.0 mEq/L Normal 4.0 - 15 .0 mEq/L AO ADM SS Eosinophil, Absolute 0.0 103/mcL Normal 0.0 - 0 .4 10^3/mcL AO Workflow SS Eosinophils/100 WBC (Bld) 0.6 % Normal 0.0 - 7.0 % AO Workflow SS Erythrocyte distribution width (RBC) [Ratio] 13.2 % Normal 11.5 - 14.5 % AO Workflow SS GFR/1.73 sq M.predicted among blacks MDRD (S/P/Bld) [Vol rate/Area] 126 ml/min/1.73sqm Invalid Interpretation Code AO Chemistry S Comment on above: Interpretive Data: GFR Population mean for , Non- Americans Ages 20-29 = 116 mL/min/1.73 sq.m. Ages 30-39 = 107 mL/min/1.73 sq.m. Ages 40-49 = 99 mL/min/1.73 sq.m. Ages 50-59 = 93 mL/min/1.73 sq.m. Ages 60-69 = 85 mL/min/1.73 sq.m. Ages 70+ = 75 mL/min/1.73 sq.m. Chronic Kidney Disease: Less than 60 mL/min/1.73 square meters End Stage Renal Disease: Less than 15 mL/min/1.73 square meters GFR/1.73 sq M.predicted among non-blacks MDRD (S/P/Bld) [Vol rate/Area] 104 ml/min/1.73sqm Invalid Interpretation Code AO Chemistry S Comment on above: Interpretive Data: GFR Population mean for , Non- Americans Ages 20-29 = 116 mL/min/1.73 sq.m. Ages 30-39 = 107 mL/min/1.73 sq.m. Ages 40-49 = 99 mL/min/1.73 sq.m. Ages 50-59 = 93 mL/min/1.73 sq.m. Ages 60-69 = 85 mL/min/1.73 sq.m. Ages 70+ = 75 mL/min/1.73 sq.m. Chronic Kidney Disease: Less than 60 mL/min/1.73 square meters End Stage Renal Disease: Less than 15 mL/min/1.73 square meters Glucose [Mass/Vol] 85 mg/dL Normal 70 - 105 mg/dL AO ADM SS Hematocrit (Bld) [Volume fraction] 43.2 % Normal 42.0 - 52.0 % AO Workflow SS Hemoglobin (Bld) [Mass/Vol] 15.3 G/dL Normal 14.0 - 18.0 G/dL AO Workflow SS Lymphocytes (Bld) [#/Vol] 0.9 103/mcL Normal 0.8 - 3.9 10^3/mcL AO Workflow SS Lymphocytes/100 WBC (Bld) 15.5 % Normal 10.0 - 50.0 % AO Workflow SS MCH (RBC) [Entitic mass] 31.8 pg High 27.0 - 31.2 pg AO Workflow SS MCHC 35.4 G/dL Normal 31.8 - 35.4 G/dL AO Workflow SS MCV (RBC) [Entitic vol] 89.8 fL Normal 80.0 - 94.0 fL AO Workflow SS Monocyte distribution width Auto (Bld) [Entitic vol] 18.26 1 Normal 0.00 - 20.00 AO Workflow SS Comment on above: Result Comment: For ED adult patients suspected of sepsis, MDW<=20.0 does not rule out sepsis or risk of sepsis Monocytes (Bld) [#/Vol] 0.4 103/mcL Normal 0.2 - 1.0 10^3/mcL AO Workflow SS Monocytes/100 WBC (Bld) 7.6 % Normal 1.7 - 13.0 % AO Workflow SS Natriuretic peptide.B prohormone N-Terminal [Mass/Vol] 11 pg/mL Normal 0 - 125 pg/mL AO ADM SS Comment on above: Interpretive Data: N T-proBNP results of less than 300 pg/mL effectively rules out acute congestive heart failure with 99% negative predictive value. Neutrophils (Bld) [#/Vol] 4.3 103/mcL Normal 2.9 - 6.2 10^3/mcL AO Workflow SS Neutrophils/100 WBC (Bld) 75.8 % Normal 37.0 - 80.0 % AO Workflow SS Platelet mean volume (Bld) [Entitic vol] 6.4 fL Low 7.4 - 10.4 fL AO Workflow SS Platelets (Bld) [#/Vol] 320 103/mcL Normal 130 - 400 10^3/mcL AO Workflow SS Potassium [Moles/Vol] 4.0 mmol/L Normal 3.5 - 5.1 mmol/L AO ADM SS RBC (Bld) [#/Vol] 4.81 106/mcL Normal 4.04 - 6.1 3 10^6/mcL AO Workflow SS Sodium [Moles/Vol] 139 mmol/L Normal 136 - 145 mmol/L AO ADM SS Urea nitrogen [Mass/Vol] 14 mg/dL Normal 7 - 18 mg/dL AO ADM SS Urea nitrogen/Creatinine [Mass ratio] 18 ratio Normal 7 - 27 ratio AO ADM SS WBC (Bld) [#/Vol] 5.7 103/mcL Normal 4.6 - 10.8 10^3/mcL AO Workflow SS PBNPon 10-31-2023 Natriuretic peptide B (Bld) [Mass/Vol] 11 pg/mL Normal 0-125 [facility] Comment on above: Result Comment: NT-p roBNP results of less than 300 pg/mL effectively rules out acute congestive heart failure with 99% negative predictive value. Performed By: #### B MP, PBOSMAR, ITA, ANEU, ADIFF, CBC, MDW, GFR ####[address] [place], [place] [address] [facility] 10-31-2023 High Sensitivity Troponin I 6 ng/L Normal 0-76 [facility] Comment on above: Result Comment: High Sensitive Troponin I Reference Ranges: Female: 0-51 ng/L Male: 0-76 ng/L Testing performed on [employer] using a homogeneous sandwich chemiluminescent immunoassay based on Azimuth technology. Performed By: #### T REGLA ####[address] [place], [place] [address] High Sensitivity Troponin I 5 ng/L Normal 0-76 [facility] Comment on above: Result Comment: High Sensitive Troponin I Reference Ranges: Female: 0-51 ng/L Male: 0-76 ng/L Testing performed on [employer] using a homogeneous sandwich chemiluminescent immunoassay based on Azimuth technology. Performed By: #### T ROPHS #### [address] [place], [place] [address] High Sensitivity Troponin I <4 Normal 0-76 [facility] Comment on above: Result Comment: High Sensitive Troponin I Reference Ranges: Female: 0-51 ng/L Male: 0-76 ng/L Testing performed on [employer] using a homogeneous sandwich chemiluminescent immunoassay based on Azimuth technology. Performed By: #### B MP, PBNP, TROPHS, ANEU, ADIFF, CBC, MDW, GFR ####[address] [place], [place] [address] XR CHEST 1 VIEWon 10-31-2023 XR CHEST 1 VIEW ORIGINAL EXAMINATION: ONE XRAY VIEW OF THE CHEST10/31/2023 2:39 pm COMPARISON: 10/25/2023 HISTORY: ORDERING SYSTEM PROVIDED HISTORY: Reason for Exam: chest pain FINDINGS: The cardiomediastinal contours are normal. Vascular structures appear within normal limits. There is no consolidation. No pleural fluid or pneumothorax. No aggressive osseous lesions identified. IMPRESSION: No acute radiographic findings. Interpreted by: Franco Hughes MD Preliminary Report By: Franco Hughes MD Electronically signed By Franco Hughes MD Dictated Date: 10/31/2023 2:41:08 PM Prelim Date: 10/31/2023 2:41:37 PM Sign Date: 10/31/2023 2:41:37 PM Ordering Provider: MCKAYLA DEAN [facility] .Auto Diffon 10-25-2023 Basophil, Absolute 0.0 10 3/mcL Normal 0.0-0.2 [facility] ([place]) Comment on above: Performed By: #### G FR, CBC, ANEU, PBNP, ADIFF, CMP #### [address] [place], [place] [address] Basophils/100 WBC (Bld) 0.4 % Normal 0.0-2.5 [facility] ([place]) Comment on above: Performed By: #### G FR, CBC, ANEU, PBNP, ADIFF, CMP #### [address] [place], [place] [address] Eosinophil, Absolute 0.0 10 3/mcL Normal 0.0-0.4 [facility] ([place]) Comment on above: Performed By: #### G FR, CBC, ANEU, PBNP, ADIFF, CMP #### [address] [address] Eosinophils/100 WBC (Bld) 0.6 % Normal 0.0-7.0 [facility] ([place]) Comment on above: Performed By: #### G FR, CBC, ANEU, PBNP, ADIFF, CMP #### [address] [address] Lymphocyte, Absolute 1.1 10 3/mcL Normal 0.8-3.9 [facility] ([place]) Comment on above: Performed By: #### G FR, CBC, ANEU, PBNP, ADIFF, CMP #### [address] [address] Lymphocytes/100 WBC (Bld) 19.8 % Normal 10.0-50.0 [facility] ([place]) Comment on above: Performed By: #### G FR, CBC, ANEU, PBNP, ADIFF, CMP #### [address] [address] Monocyte, Absolute 0.5 10 3/mcL Normal 0.2-1.0 [facility] ([place]) Comment on above: Performed By: #### G FR, CBC, ANEU, PBNP, ADIFF, CMP #### [address] [address] Monocytes/100 WBC (Bld) 8.0 % Normal 1.7-13.0 [facility] ([place]) Comment on above: Performed By: #### G FR, CBC, ANEU, PBNP, ADIFF, CMP #### [address] [address] Neutrophils/100 WBC (Bld) 71.2 % Normal 37.0-80.0 [facility] ([place] Comment on above: Performed By: #### G FR, CBC, ANEU, PBNP, ADIFF, CMP #### [address] [address] .GFRon 10-25-2023 GFR 126 ml/min/1.73sqm Normal [facility] ([place]) Comment on above: Result Comment: GFR Population mean for , Non- Americans Ages 20-29 = 116 mL/min/1.73 sq.m. Ages 30-39 = 107 mL/min/1.73 sq.m. Ages 40-49 = 99 mL/min/1.73 sq.m. Ages 50-59 = 93 mL/min/1.73 sq.m. Ages 60-69 = 85 mL/min/1.73 sq.m. Ages 70+ = 75 mL/min/1.73 sq.m. Chronic Kidney Disease: Less than 60 mL/min/1.73 square meters End Stage Renal Disease: Less than 15 mL/min/1.73 square meters Performed By: #### G FR, CBC, ANEU, PBNP, ADIFF, CMP #### [address] [address] GFR Non- 104 ml/min/1.73sqm Normal [facility] ([place] Comment on above: Result Comment: GFR Population mean for , Non- Americans Ages 20-29 = 116 mL/min/1.73 sq.m. Ages 30-39 = 107 mL/min/1.73 sq.m. Ages 40-49 = 99 mL/min/1.73 sq.m. Ages 50-59 = 93 mL/min/1.73 sq.m. Ages 60-69 = 85 mL/min/1.73 sq.m. Ages 70+ = 75 mL/min/1.73 sq.m. Chronic Kidney Disease: Less than 60 mL/min/1.73 square meters End Stage Renal Disease: Less than 15 mL/min/1.73 square meters Performed By: #### G FR, CBC, ANEU, PBNP, ADIFF, CMP #### [address] [address] .NEUABSon 10-25-2023 Neutrophil, Absolute 4.0 10 3/mcL Normal 2.9-6.2 [facility] ([place]) Comment on above: Performed By: #### G FR, CBC, ANEU, PBNP, ADIFF, CMP #### [address] [address] CBCon 10-25-2023 Erythrocyte distribution width (RBC) [Ratio] 13.3 % Normal 11.5-14.5 [facility] ([place] Comment on above: Performed By: #### G FR, CBC, ANEU, PBNP, ADIFF, CMP #### [address] [address] Hematocrit (Bld) [Volume fraction] 45.1 % Normal 42.0-52.0 [facility] ([place] Comment on above: Performed By: #### G FR, CBC, ANEU, PBNP, ADIFF, CMP #### [address] [address] Hgb 15.7 G/dL Normal 14.0-18.0 [facility] ([place] Comment on above: Performed By: #### G FR, CBC, ANEU, PBNP, ADIFF, CMP #### [address] [address] MCH (RBC) [Entitic mass] 31.8 pg High 27.0-31.2 [facility] ([place] Comment on above: Performed By: #### G FR, CBC, ANEU, PBNP, ADIFF, CMP #### [address] [address] MCHC 34.7 G/dL Normal 31.8-35.4 [facility] ([place]) Comment on above: Performed By: #### G FR, CBC, ANEU, PBNP, ADIFF, CMP #### [address] [address] MCV (RBC) [Entitic vol] 91.6 fL Normal 80.0-94.0 [facility] ([place]) Comment on above: Performed By: #### G FR, CBC, ANEU, PBNP, ADIFF, CMP #### [address] [address] Platelet 342 10 3/mcL Normal 130-400 [facility] ([place] Comment on above: Performed By: #### G FR, CBC, ANEU, PBNP, ADIFF, CMP #### [address] [address] Platelet mean volume (Bld) [Entitic vol] 6.9 fL Low 7.4-10.4 [facility] ([place] Comment on above: Performed By: #### G FR, CBC, ANEU, PBNP, ADIFF, CMP #### [address] [address] RBC 4.93 10 6/mcL Normal 4.04-6.13 [facility] ([place] Comment on above: Performed By: #### G FR, CBC, ANEU, PBNP, ADIFF, CMP #### [address] [address] WBC 5.7 10 3/mcL Normal 4.6-10.8 [facility] ([place] Comment on above: Performed By: #### G FR, CBC, ANEU, PBNP, ADIFF, CMP #### [address] [address] CMPon 10-25-2023 Albumin Level 4.0 G/dL Normal 3.5-5.0 [facility] ([place]) Comment on above: Performed By: #### G FR, CBC, ANEU, PBNP, ADIFF, CMP #### [address] [address] Albumin/Globulin [Mass ratio] 1.2 {ratio} Normal 1.1-2.5 [facility]) Comment on above: Performed By: #### G FR, CBC, ANEU, PBNP, ADIFF, CMP #### [address] [address] ALP [Catalytic activity/Vol] 83 U/L Normal 40-135 [facility] ([place] Comment on above: Performed By: #### G FR, CBC, ANEU, PBNP, ADIFF, CMP #### [address] [address] ALT [Catalytic activity/Vol] 34 U/L Normal 16-63 [facility] ([place] Comment on above: Performed By: #### G FR, CBC, ANEU, PBNP, ADIFF, CMP #### [address] [address] AST [Catalytic activity/Vol] 21 U/L Normal 10-40 [facility] ([place] Comment on above: Performed By: #### G FR, CBC, ANEU, PBNP, ADIFF, CMP #### [address] [address] Bili Total 0.8 mg/dL Normal 0.2-1.0 [facility] ([place] Comment on above: Result Comment: Use of this assay is not recommended for patients undergoing treatment with eltrombopag due to the potential for falsely elevated results. Performed By: #### G FR, CBC, ANEU, PBNP, ADIFF, CMP #### [address] [address] BUN/Creatinine Ratio 19 ratio Normal 7-27 [facility] ([place]) Comment on above: Performed By: #### G FR, CBC, ANEU, PBNP, ADIFF, CMP #### [address] [address] Calcium [Mass/Vol] 9.5 mg/dL Normal 8.4-10.2 [facility] ([place]) Comment on above: Performed By: #### G FR, CBC, ANEU, PBNP, ADIFF, CMP #### [address] [address] Chloride [Moles/Vol] 102 mmol/L Normal 98-107 [facility] ([place]) Comment on above: Performed By: #### G FR, CBC, ANEU, PBNP, ADIFF, CMP #### [address] [address] CO2 [Moles/Vol] 31 mmol/L High 22-29 [facility] ([place]) Comment on above: Performed By: #### G FR, CBC, ANEU, PBNP, ADIFF, CMP #### [address] [address] Creatinine [Mass/Vol] 0.77 mg/dL Normal 0.70-1.30 [facility] ([place]) Comment on above: Result Comment: Test ing performed on Siemens Dimension EXL analyzer using a modified kinetic Andria technique. Performed By: #### G FR, CBC, ANEU, PBNP, ADIFF, CMP #### [address] [address] Electrolyte Balance 8.0 mEq/L Normal 4.0-15.0 [facility] ([place]) Comment on above: Performed By: #### G FR, CBC, ANEU, PBNP, ADIFF, CMP #### [address] [address] Globulin 3.4 G/dL Normal [facility] ([place]) Comment on above: Performed By: #### G FR, CBC, ANEU, PBNP, ADIFF, CMP #### [address] [address] Glucose [Mass/Vol] 102 mg/dL Normal 70-105 [facility] ([place]) Comment on above: Performed By: #### G FR, CBC, ANEU, PBNP, ADIFF, CMP #### [address] [address] Potassium [Moles/Vol] 4.2 mmol/L Normal 3.5-5.1 [facility] ([place]) Comment on above: Performed By: #### G FR, CBC, ANEU, PBNP, ADIFF, CMP #### [address] [address] Sodium [Moles/Vol] 141 mmol/L Normal 136-145 [facility] ([place]) Comment on above: Performed By: #### G FR, CBC, ANEU, PBNP, ADIFF, CMP #### [address] [address] Total Protein 7.4 G/dL Normal 6.4-8.2 [facility] ([place]) Comment on above: Performed By: #### G FR, CBC, ANEU, PBNP, ADIFF, CMP #### [address] [address] Urea nitrogen [Mass/Vol] 15 mg/dL Normal 7-18 [facility] ([place] Comment on above: Performed By: #### G FR, CBC, ANEU, PBNP, ADIFF, CMP #### [address] [place], [place] [address] LABORATORYOrdered By: SYSTEM SYSTEM on 10-25-2023 Albumin BCP dye [Mass/Vol] 4.0 G/dL Normal 3.5 - 5.0 G/dL AO ADM SS Albumin/Globulin [Mass ratio] 1.2 {ratio} Normal 1.1 - 2.5 ratio AO ADM SS ALP [Catalytic activity/Vol] 83 U/L Normal 40 - 135 U/L AO ADM SS ALT With P-5'-P [Catalytic activity/Vol] 34 U/L Normal 16 - 63 U/L AO ADM SS AST With P-5'-P [Catalytic activity/Vol] 21 U/L Normal 10 - 40 U/L AO ADM SS Basophil, Absolute 0.0 103/mcL Normal 0.0 - 0.2 10^3/mcL AO Workflow SS Basophils/100 WBC (Bld) 0.4 % Normal 0.0 - 2.5 % AO Workflow SS Bilirubin [Mass/Vol] 0.8 mg/dL Normal 0.2 - 1 .0 mg/dL AO ADM SS Comment on above: Interpretive Data: U se of this assay is not recommended for patients undergoing treatment with eltrombopag due to the potential for falsely elevated results. Calcium [Mass/Vol] 9.5 mg/dL Normal 8.4 - 10. 2 mg/dL AO ADM SS Chloride [Moles/Vol] 102 mmol/L Normal 98 - 10 7 mmol/L AO ADM SS CO2 [Moles/Vol] 31 mmol/L High 22 - 29 mmol/L AO ADM SS Creatinine [Mass/Vol] 0.77 mg/dL Normal 0.70 - 1.30 mg/dL AO ADM SS Comment on above: Interpretive Data: T esting performed on [employer] Dimension EXL analyzer using a modified kinetic Andria technique. Electrolyte Balance 8.0 mEq/L Normal 4.0 - 15 .0 mEq/L AO ADM SS Eosinophil, Absolute 0.0 103/mcL Normal 0.0 - 0 .4 10^3/mcL AO Workflow SS Eosinophils/100 WBC (Bld) 0.6 % Normal 0.0 - 7.0 % AO Workflow SS Erythrocyte distribution width (RBC) [Ratio] 13.3 % Normal 11.5 - 14.5 % AO Workflow SS GFR/1.73 sq M.predicted among blacks MDRD (S/P/Bld) [Vol rate/Area] 126 ml/min/1.73sqm Invalid Interpretation Code AO Chemistry S Comment on above: Interpretive Data: GFR Population mean for , Non- Americans Ages 20-29 = 116 mL/min/1.73 sq.m. Ages 30-39 = 107 mL/min/1.73 sq.m. Ages 40-49 = 99 mL/min/1.73 sq.m. Ages 50-59 = 93 mL/min/1.73 sq.m. Ages 60-69 = 85 mL/min/1.73 sq.m. Ages 70+ = 75 mL/min/1.73 sq.m. Chronic Kidney Disease: Less than 60 mL/min/1.73 square meters End Stage Renal Disease: Less than 15 mL/min/1.73 square meters GFR/1.73 sq M.predicted among non-blacks MDRD (S/P/Bld) [Vol rate/Area] 104 ml/min/1.73sqm Invalid Interpretation Code AO Chemistry S Comment on above: Interpretive Data: GFR Population mean for , Non- Americans Ages 20-29 = 116 mL/min/1.73 sq.m. Ages 30-39 = 107 mL/min/1.73 sq.m. Ages 40-49 = 99 mL/min/1.73 sq.m. Ages 50-59 = 93 mL/min/1.73 sq.m. Ages 60-69 = 85 mL/min/1.73 sq.m. Ages 70+ = 75 mL/min/1.73 sq.m. Chronic Kidney Disease: Less than 60 mL/min/1.73 square meters End Stage Renal Disease: Less than 15 mL/min/1.73 square meters Globulin 3.4 G/dL Invalid Interpretation Code AO ADM SS Glucose [Mass/Vol] 102 mg/dL Normal 70 - 105 mg/dL AO ADM SS Hematocrit (Bld) [Volume fraction] 45.1 % Normal 42.0 - 52.0 % AO Workflow SS Hemoglobin (Bld) [Mass/Vol] 15.7 G/dL Normal 14.0 - 18.0 G/dL AO Workflow SS Lymphocyte, Absolute 1.1 103/mcL Normal 0.8 - 3 .9 10^3/mcL AO Workflow SS Lymphocytes/100 WBC (Bld) 19.8 % Normal 10.0 - 50.0 % AO Workflow SS MCH (RBC) [Entitic mass] 31.8 pg High 27.0 - 31.2 pg AO Workflow SS MCHC 34.7 G/dL Normal 31.8 - 35.4 G/dL AO Workflow SS MCV (RBC) [Entitic vol] 91.6 fL Normal 80.0 - 94.0 fL AO Workflow SS Monocyte, Absolute 0.5 103/mcL Normal 0.2 - 1.0 10^3/mcL AO Workflow SS Monocytes/100 WBC (Bld) 8.0 % Normal 1.7 - 13.0 % AO Workflow SS Natriuretic peptide.B prohormone N-Terminal [Mass/Vol] 11 pg/mL Normal 0 - 125 pg/mL AO ADM SS Comment on above: Interpretive Data: N T-proBNP results of less than 300 pg/mL effectively rules out acute congestive heart failure with 99% negative predictive value. Neutrophil, Absolute 4.0 103/mcL Normal 2.9 - 6 .2 10^3/mcL AO Workflow SS Neutrophils/100 WBC (Bld) 71.2 % Normal 37.0 - 80.0 % AO Workflow SS Platelet mean volume (Bld) [Entitic vol] 6.9 fL Low 7.4 - 10.4 fL AO Workflow SS Platelets (Bld) [#/Vol] 342 103/mcL Normal 130 - 400 10^3/mcL AO Workflow SS Potassium [Moles/Vol] 4.2 mmol/L Normal 3.5 - 5.1 mmol/L AO ADM SS Protein [Mass/Vol] 7.4 G/dL Normal 6.4 - 8.2 G/dL AO ADM SS RBC (Bld) [#/Vol] 4.93 106/mcL Normal 4.04 - 6.1 3 10^6/mcL AO Workflow SS Sodium [Moles/Vol] 141 mmol/L Normal 136 - 145 mmol/L AO ADM SS Urea nitrogen [Mass/Vol] 15 mg/dL Normal 7 - 18 mg/dL AO ADM SS Urea nitrogen/Creatinine [Mass ratio] 19 ratio Normal 7 - 27 ratio AO ADM SS WBC (Bld) [#/Vol] 5.7 103/mcL Normal 4.6 - 10.8 10^3/mcL AO Workflow SS PBNPon 10-25-2023 Natriuretic peptide B (Bld) [Mass/Vol] 11 pg/mL Normal 0-125 [facility] ([place] Comment on above: Result Comment: NT-p roBNP results of less than 300 pg/mL effectively rules out acute congestive heart failure with 99% negative predictive value. Performed By: #### G FR, CBC, ANEU, PBNP, ADIFF, CMP #### [facility] [address] [place], [place] [address] XR CHEST 2 VIEWSon 4 XR CHEST 2 VIEWS ORIGINAL EXAMINATION: TWO XRAY VIEWS OF THE CHEST 10/25/2023 9:34 am COMPARISON: Chest x-ray June 23, 2022 HISTORY: ORDERING SYSTEM PROVIDED HISTORY: Reason for Exam: Shortness of breath with possible [place] yesterday morning per patient. FINDINGS: The heart is normal in size with no vascular congestion. There is no consolidation, pleural effusion, or pneumothorax. There is mild scoliosis of the spine with mild multilevel degenerative changes noted. There is vertebral body height loss at T10. Subchondral cysts are noted within the left humeral head. IMPRESSION: No acute intrathoracic process. I have personally reviewed the images of this examination and agree with the resident's findings and interpretation. Interpreted by: Bowen Borges MD Preliminary Report By: Adan Sanchez Electronically signed By Bowen Borges MD Dictated Date: 10/25/2023 10:02:46 AM Prelim Date: 10/25/2023 11:57:37 AM Sign Date: 10/25/2023 11:57:37 AM Ordering Provider: ALEKSANDR Booth [facility] ([place] [place] ANGIOGRAPHY HEAD W/ CONTR Karon 05-02-2023 CT ANGIOGRAPHY HEAD W/ CONTRAST ORIGINAL EXAMINATION: CTA OF THE HEAD WITH CONTRAST 05/02/2023 3:26 pm: TECHNIQUE: CTA of the head/brain was performed with the administration of intravenous contrast. Multiplanar reformatted images are provided for review. MIP images are provided for review. Automated exposure control, iterative reconstruction, and/or weight based adjustment of the mA/kV was utilized to reduce the radiation dose to as low as reasonably achievable. COMPARISON: None. HISTORY: ORDERING SYSTEM PROVIDED HISTORY: Reason for Exam: Thunderclap headache,worse daly of life FINDINGS: ANTERIOR CIRCULATION: Both carotid siphons are mildly atherosclerotic. Incidental left M1 MCA fenestration, seen best on the coronal images. No significant stenosis of the intracranial internal carotid, anterior cerebral, or middle cerebral arteries. No aneurysm. POSTERIOR CIRCULATION: No significant stenosis of the vertebral, basilar, or posterior cerebral arteries. No aneurysm. OTHER: No dural venous sinus thrombosis on this non-dedicated study. BRAIN: No definite intracranial hemorrhage. No mass effect or midline shift. No extra-axial fluid collection. The diamond-white differentiation is maintained. IMPRESSION: No intracranial hemorrhage or large vessel occlusion. I have reviewed this report and agree with the resident findings and interpretation. Interpreted by: Randall Shah MD Preliminary Report By: Michelle Sim Electronically signed By Randall Shah MD Dictated Date: 05/02/2023 3:43:48 PM Prelim Date: 05/02/2023 3:52:31 PM Sign Date: 05/02/2023 3:54:11 PM Ordering Provider: DAVID GUILLEN [facility] [place] ([place]) LABORATORYOrdered By: Aggie Jauregui on 07-21-2022 Gliadin IgA IA Qn (S) 1 Invalid Interpretation Code <=20 AH Auto Viro/Sero SS Gliadin IgG IA Qn (S) 1 Invalid Interpretation Code <=20 AH Auto Viro/Sero SS tTG IgA IA Qn (S) 1 Invalid Interpretation Code <=20.0 AH Auto Viro/Sero SS LABORATORYOrdered By: SYSTEM SYSTEM on 06-23-2022 25-hydroxyvitamin D3 [Mass/Vol] 35.2 ng/mL Invalid Interpretation Code AO ADM SS Albumin BCP dye [Mass/Vol] 3.7 G/dL Invalid Interpretation Code 3.5 - 5.0 G/dL AO ADM SS Albumin/Globulin [Mass ratio] 1.4 {ratio} Invalid Interpretation Code 1.1 - 2.5 ratio AO ADM SS ALP [Catalytic activity/Vol] 71 U/L Invalid Interpretation Code 40 - 135 U/L AO ADM SS ALT With P-5'-P [Catalytic activity/Vol] 33 U/L Invalid Interpretation Code 16 - 63 U/L AO ADM SS AST With P-5'-P [Catalytic activity/Vol] 23 U/L Invalid Interpretation Code 10 - 40 U/L AO ADM SS Bilirubin [Mass/Vol] 0.6 mg/dL Invalid Interpretation Code 0.2 - 1.0 mg/dL AO ADM SS Calcium [Mass/Vol] 9.4 mg/dL Invalid Interpretation Code 8.4 - 10.2 mg/dL AO ADM SS Chloride [Moles/Vol] 107 mmol/L Invalid Interpretation Code 98 - 107 mmol/L AO ADM SS CO2 [Moles/Vol] 29 mmol/L Invalid Interpretation Code 22 - 29 mmol/L AO ADM SS Creatinine [Mass/Vol] 0.73 mg/dL Invalid Interpretation Code 0.70 - 1.30 mg/dL AO ADM SS Electrolyte Balance 7.0 mEq/L Invalid Interpretation Code 4.0 - 15.0 mEq/L AO ADM SS GFR/1.73 sq M.predicted among blacks MDRD (S/P/Bld) [Vol rate/Area] 134 ml/min/1.73sqm Invalid Interpretation Code AO Chemistry S GFR/1.73 sq M.predicted among non-blacks MDRD (S/P/Bld) [Vol rate/Area] 111 ml/min/1.73sqm Invalid Interpretation Code AO Chemistry S Globulin 2.7 G/dL Invalid Interpretation Code AO ADM SS Glucose [Mass/Vol] 98 mg/dL Invalid Interpretation Code 70 - 105 mg/dL AO ADM SS Potassium [Moles/Vol] 4.4 mmol/L Invalid Interpretation Code 3.5 - 5.1 mmol/L AO ADM SS Prostate specific Ag [Mass/Vol] 1.05 ng/mL Invalid Interpretation Code 0.00 - 4.00 ng/mL AO ADM SS Protein [Mass/Vol] 6.4 G/dL Invalid Interpretation Code 6.4 - 8.2 G/dL AO ADM SS Sodium [Moles/Vol] 143 mmol/L Invalid Interpretation Code 136 - 145 mmol/L AO ADM SS Urea nitrogen [Mass/Vol] 15 mg/dL Invalid Interpretation Code 7 - 18 mg/dL AO ADM SS Urea nitrogen/Creatinine [Mass ratio] 21 ratio Invalid Interpretation Code 7 - 27 ratio AO ADM SS LABORATORYOrdered By: Sarahi Ward on 06-23-2022 Basophil, Absolute 0.0 103/mcL Invalid Interpretation Code 0.0 - 0.2 10^3/mcL AO Workflow SS Basophils/100 WBC (Bld) 0.4 % Invalid Interpretation Code 0.0 - 2.5 % AO Workflow SS Eosinophil, Absolute 0.1 103/mcL Invalid Interpretation Code 0.0 - 0.4 10^3/mcL AO Workflow SS Eosinophils/100 WBC (Bld) 2.2 % Invalid Interpretation Code 0.0 - 7.0 % AO Workflow SS Erythrocyte distribution width (RBC) [Ratio] 14.1 % Invalid Interpretation Code 11.5 - 14.5 % AO Workflow SS Hematocrit (Bld) [Volume fraction] 43.4 % Invalid Interpretation Code 42.0 - 52.0 % AO Workflow SS Hemoglobin (Bld) [Mass/Vol] 15.3 G/dL Invalid Interpretation Code 14.0 - 18.0 G/dL AO Workflow SS Lymphocyte, Absolute 1.3 103/mcL Invalid Interpretation Code 0.8 - 3.9 10^3/mcL AO Workflow SS Lymphocytes/100 WBC (Bld) 23.8 % Invalid Interpretation Code 10.0 - 50.0 % AO Workflow SS MCH (RBC) [Entitic mass] 31.0 pg Invalid Interpretation Code 27.0 - 31.2 pg AO Workflow SS MCHC 35.2 G/dL Invalid Interpretation Code 31.8 - 35.4 G/dL AO Workflow SS MCV (RBC) [Entitic vol] 88.2 fL Invalid Interpretation Code 80.0 - 94.0 fL AO Workflow SS Monocyte, Absolute 0.4 103/mcL Invalid Interpretation Code 0.2 - 1.0 10^3/mcL AO Workflow SS Monocytes/100 WBC (Bld) 7.7 % Invalid Interpretation Code 1.7 - 13.0 % AO Workflow SS Neutrophil, Absolute 3.5 103/mcL Invalid Interpretation Code 2.9 - 6.2 10^3/mcL AO Workflow SS Neutrophils/100 WBC (Bld) 65.9 % Invalid Interpretation Code 37.0 - 80.0 % AO Workflow SS Platelet mean volume (Bld) [Entitic vol] 6.6 fL Invalid Interpretation Code 7.4 - 10.4 fL AO Workflow SS Platelets (Bld) [#/Vol] 319 103/mcL Invalid Interpretation Code 130 - 400 10^3/mcL AO Workflow SS RBC (Bld) [#/Vol] 4.93 106/mcL Invalid Interpretation Code 4.04 - 6.13 10^6/mcL AO Workflow SS WBC (Bld) [#/Vol] 5.3 103/mcL Invalid Interpretation Code 4.6 - 10.8 10^3/mcL AO Workflow SS LABORATORYOrdered By: Jackeline Neal on 06-23-2022 Cholesterol [Mass/Vol] 184 mg/dL Invalid Interpretation Code 0 - 200 mg/dL AO ADM SS Cholesterol in HDL [Mass/Vol] 69 mg/dL Invalid Interpretation Code 40 - 60 mg/dL AO ADM SS Cholesterol in LDL [Mass/Vol] 106 mg/dL Invalid Interpretation Code 0 - 130 mg/dL AO ADM SS Triglyceride [Mass/Vol] 45 mg/dL Invalid Interpretation Code 0 - 150 mg/dL AO ADM SS LABORATORYOrdered By: Sharath Lind on 06-23-2022 HIV 1 p24 Ab Ql (S) Non-Reactive (06/23/22 7:45 AM) Invalid Interpretation Code Non-Reactive AO Rapid Testing SS HIV 1 p24 Ab Ql (S) Non-Reactive Invalid Interpretation Code AO Rapid Testing SS HIV 1+2 Ab IA Ql Non-Reactive Invalid Interpretation Code AO Rapid Testing SS HIV 1+2 Ab IA.rapid Ql (Unsp spec) Non-Reactive (06/23/22 7:45 AM) Invalid Interpretation Code Non-Reactive AO Rapid Testing SS Absolute lymphocyte counton 12-28-2021 Lymphocytes Auto (Unsp spec) [#/Vol] 0.75 10*3/uL 0.83-4.51 [facility] Work Phone: Basophil percentageon 2021 Basophil percentage 0 SEEN /hpf 0-5 [facility] Work Phone: Basophils/100 WBC (Bld) 0.2 % 0-1 [facility] Work Phone: Bilirubin [Mass/Vol] 0.80 mg/dL 0.20-1.00 [facility] Work Phone: [phone] Comment on above: For patients on eltr ombopag therapy, use of Dimension [place] TBIL is not recommended. Chloride [Moles/Vol] 104 mmol/L 98-107 [facility] Work Phone: Eosinophils/100 WBC (Bld) 0.2 % 0-5 [facility] Work Phone: Glucose [Mass/Vol] 109 mg/dL 74-106 [facility] Work Phone: Comment on above: Fasting Glucose resu lt from 100 to 125 mg/dL suggests IMPAIRED HOMEOSTASIS per A.D.A. criteria. Neutrophils (Bld) [#/Vol] 10.7 10*3/uL 2.0-7.7 [facility] Work Phone: Neutrophils/100 WBC (Bld) 88.2 % 47-70 [facility] Work Phone: Potassium [Moles/Vol] 3.8 mmol/L 3.5-5.1 [facility] Work Phone: [phone] Protein [Mass/Vol] 7.2 g/dL 6.4-8.2 [facility] Work Phone: Sodium [Moles/Vol] 139 mmol/L 136-145 [facility] Work Phone: WBC (Bld) [#/Vol] 12.1 10*3/uL 4.4-11.0 [facility] Work Phone: Bilirubin Test strip Ql (U)o n 12-28-2021 Bilirubin Ql (U) Negative Negative [facility] Work Phone: Blood erythrocytes count (nu mber/volume)on 12-28-2021 RBC (Bld) [#/Vol] 4.85 10*6/uL 4.6-6.2 [facility] Work Phone: Blood hemoglobin measurement (mass/volume)on 12-28-2021 Hemoglobin (Bld) [Mass/Vol] 15.3 g/dL 13.0-16.5 [facility] Work Phone: [phone] Blood lymphocytes/100 leukoc yteson 12-28-2021 Lymphocytes/100 WBC (Bld) 6.2 % 19-41 [facility] Work Phone: [phone] Blood monocytes/100 leukocyt eson 12-28-2021 Monocytes/100 WBC (Bld) 4.7 % 0-10 [facility] Work Phone: Blood platelet mean volumeon 12-28-2021 Platelet mean volume (Bld) [Entitic vol] 8.4 fL 6.2-12.0 [facility] Work Phone: Determination of erythrocyte mean corpuscular volume (MCV)on 12-28-2021 MCV (RBC) [Entitic vol] 86.4 fL 80-94 [facility] Work Phone: Hematocrit Auto (Bld) [Volum e fraction]on 12-28-2021 Hematocrit (Bld) [Volume fraction] 41.9 % 40-54 [facility] Work Phone: Ketones Test strip Ql (U)on 12-28-2021 Ketones Ql (U) 5 mg/dl Negative [facility] Work Phone: Laboratory - Chemistry and C hemistry - challengeon 12-28-2021 ALP [Catalytic activity/Vol] 74 U/L 45-117 [facility] Work Phone: ALT [Catalytic activity/Vol] 40 U/L 16-61 [facility] Work Phone: CO2 [Moles/Vol] 25.0 mmol/L 21.0-32.0 [facility] Work Phone: Globulin (S) [Mass/Vol] 3.2 g/dL 2.2-4.2 [facility] Work Phone: Urea nitrogen/Creatinine [Mass ratio] 17.3 mg/mg 10-20 [facility] Work Phone: Laboratory - Hematology and Cell countson 12-28-2021 Erythrocyte distribution width (RBC) [Entitic vol] 37.2 fL 35.1-43.9 [facility] Work Phone: Erythrocyte distribution width (RBC) [Ratio] 11.9 % 11.6-14.6 [facility] Work Phone: Immature granulocytes/100 WBC (Bld) 0.500 % 0.0-0.9 [facility] Work Phone: Comment on above: IG% - Immature Granu locytes (promyelocytes, myelocytes and metamyelocytes) > 1% indicates that a LEFT SHIFT is Present. MCH (RBC) [Entitic mass] 31.5 pg 27.0-32.0 [facility] Work Phone: Nucleated RBC/100 WBC (Bld) [Ratio] 0 % 0-5 [facility] Work Phone: MCHC Auto (RBC) [Mass/Vol]on 12-28-2021 MCHC (RBC) [Mass/Vol] 36.5 g/dL 32-36 [facility] Work Phone: Mucus LM Ql (Urine sed)on Mucus Ql (Urine sed) 0 SEEN /hpf [facility] Work Phone: Nitrite Test strip Ql (U)on 12-28-2021 Nitrite Ql (U) Negative Negative [facility] Work Phone: No Panel Informationon 12-28 Estimated Creatinine Clearance Calc 91.89 ml/min [facility] Work Phone: Estimated GFR (MDRD) Amer 127 mL/min >60 [facility] Work Phone: Comment on above: GFR Calc Estimated GFR (MDRD) Non-Af Amer 105 mL/min >60 [facility] Work Phone: Comment on above: Non- GFR Calc Platelets bldon 12-28-2021 Platelets (Bld) [#/Vol] 316 10*3/uL 150-450 [facility] Work Phone: Protein Test strip Ql (U)on 12-28-2021 Protein Ql (U) Negative Negative [facility] Work Phone: Serum or plasma albumin jonna urement (mass/volume)on 12-28-2021 Albumin [Mass/Vol] 4.0 g/dL 3.2-5.0 [facility] Work Phone: Serum or plasma albumin/glob ulin mass ratioon 12-28-2021 Albumin/Globulin [Mass ratio] 1.2 {ratio} 0.9-2.4 [facility] Work Phone: Serum or plasma calcium jonna urement (mass/volume)on 12-28-2021 Calcium [Mass/Vol] 9.7 mg/dL 8.5-10.1 [facility] Work Phone: Serum or plasma creatinine m easurement (mass/volume)on 12-28-2021 Creatinine [Mass/Vol] 0.81 mg/dL 0.70-1.30 [facility] Work Phone: Comment on above: The validity of the calculated GFR & GFRAA in patients over 70 years has not been determined. Clinical correlation is essential. Serum or plasma urea nitroge n measurement (mass/volume)on 12-28-2021 Urea nitrogen [Mass/Vol] 14 mg/dL 7-18 [facility] Work Phone: Squamous epithelial cells de tection in urine sediment by light microscopyon 12-28-2021 Epithelial cells.squamous LM Ql (Urine sed) 0 SEEN /hpf 0-5 [facility] Work Phone: Thin prep Papanicolaou smear with manual screeningon 12-28-2021 Thin prep Papanicolaou smear with manual screening 23 U/L 15-37 [facility] Work Phone: Thin prep Papanicolaou smear with manual screening 10 5-15 [facility] Work Phone: Urine blood detectionon - RBC Ql (U) Negative Negative [facility] Work Phone: RBC Ql (U) 0 SEEN /hpf 0-5 [facility] Work Phone: Urine clarityon 12-28-2021 Clarity (U) Clear Clear [facility] Work Phone: Urine color determinationon 12-28-2021 Color (U) Yellow Yellow [facility] Work Phone: Urine glucose detectionon Glucose Ql (U) Normal mg/dl Normal [facility] Work Phone: Urine leukocyte esterase det ection by dipstickon 12-28-2021 Leukocyte esterase Test strip Ql (U) Negative Negative [facility] Work Phone: Urine pHon 12-28-2021 pH (U) 8.0 [pH] 5.0 - 8.0 [facility] Work Phone: Urine sediment bacteria coun t by microscopy (number/high power field)on 12-28-2021 Bacteria LM.HPF (Urine sed) [#/Area] 0 /[HPF] None Seen [facility] Work Phone: Urine specific gravity measu rementon 12-28-2021 Specific gravity (U) [Rel density] 1.010 1.002-1.030 [facility] Work Phone: Urobilinogen Auto test strip Ql (U)on 12-28-2021 Urobilinogen Ql (U) Normal mg/dl Normal [facility] Work Phone: LABORATORYOrdered By: Barbara Rendon on 08-26-2021 Albumin BCP dye [Mass/Vol] 4.1 G/dL Invalid Interpretation Code 3.5 - 5.0 G/dL AO ADM SS Albumin/Globulin [Mass ratio] 1.5 {ratio} Invalid Interpretation Code 1.1 - 2.5 ratio AO ADM SS ALP [Catalytic activity/Vol] 70 U/L Invalid Interpretation Code 40 - 135 U/L AO ADM SS ALT With P-5'-P [Catalytic activity/Vol] 33 U/L Invalid Interpretation Code 16 - 63 U/L AO ADM SS AST With P-5'-P [Catalytic activity/Vol] 21 U/L Invalid Interpretation Code 10 - 40 U/L AO ADM SS Bilirubin [Mass/Vol] 0.8 mg/dL Invalid Interpretation Code 0.2 - 1.0 mg/dL AO ADM SS C-Reactive Protein mg/dL Invalid Interpretation Code 0.0 - 0.9 mg/dL AO Chemistry S Calcium [Mass/Vol] 9.5 mg/dL Invalid Interpretation Code 8.4 - 10.2 mg/dL AO ADM SS Chloride [Moles/Vol] 104 mmol/L Invalid Interpretation Code 98 - 107 mmol/L AO ADM SS Cholesterol [Mass/Vol] 194 mg/dL Invalid Interpretation Code 0 - 200 mg/dL AO ADM SS Cholesterol in HDL [Mass/Vol] 69 mg/dL Invalid Interpretation Code 40 - 60 mg/dL AO ADM SS Cholesterol in LDL [Mass/Vol] 114 mg/dL Invalid Interpretation Code 0 - 130 mg/dL AO ADM SS CO2 [Moles/Vol] 32 mmol/L Invalid Interpretation Code 22 - 29 mmol/L AO ADM SS Creatinine [Mass/Vol] 0.99 mg/dL Invalid Interpretation Code 0.70 - 1.30 mg/dL AO ADM SS Electrolyte Balance 2.0 mEq/L Invalid Interpretation Code 4.0 - 15.0 mEq/L AO ADM SS Globulin 2.8 G/dL Invalid Interpretation Code AO ADM SS Glucose [Mass/Vol] 101 mg/dL Invalid Interpretation Code 70 - 105 mg/dL AO ADM SS Potassium [Moles/Vol] 5.3 mmol/L Invalid Interpretation Code 3.5 - 5.1 mmol/L AO ADM SS Prostate specific Ag [Mass/Vol] 0.69 ng/mL Invalid Interpretation Code 0.00 - 4.00 ng/mL AO ADM SS Protein [Mass/Vol] 6.9 G/dL Invalid Interpretation Code 6.4 - 8.2 G/dL AO ADM SS Sodium [Moles/Vol] 138 mmol/L Invalid Interpretation Code 136 - 145 mmol/L AO ADM SS Triglyceride [Mass/Vol] 53 mg/dL Invalid Interpretation Code 0 - 150 mg/dL AO ADM SS TSH Qn 1.19 m[IU]/L Invalid Interpretation Code 0.36 - 3.74 mcIU/mL AO ADM SS Urea nitrogen [Mass/Vol] 13 mg/dL Invalid Interpretation Code 7 - 18 mg/dL AO ADM SS Urea nitrogen/Creatinine [Mass ratio] 13 ratio Invalid Interpretation Code 7 - 27 ratio AO ADM SS Vit. D 25-Hydroxy 17.4 ng/mL Invalid Interpretation Code AO ADM SS LABORATORYOrdered By: Jackeline Neal on 08-26-2021 Basophil, Absolute 0.0 103/mcL Invalid Interpretation Code 0.0 - 0.2 10^3/mcL AO Workflow SS Basophils/100 WBC (Bld) 0.5 % Invalid Interpretation Code 0.0 - 2.5 % AO Workflow SS Eosinophil, Absolute 0.1 103/mcL Invalid Interpretation Code 0.0 - 0.4 10^3/mcL AO Workflow SS Eosinophils/100 WBC (Bld) 1.7 % Invalid Interpretation Code 0.0 - 7.0 % AO Workflow SS Erythrocyte distribution width (RBC) [Ratio] 12.6 % Invalid Interpretation Code 11.5 - 14.5 % AO Workflow SS ESR 15 minute reading (Bld) [Velocity] 2 mm/hr Invalid Interpretation Code 0 - 20 mm/hr AO Man Heme SS Hematocrit (Bld) [Volume fraction] 45.0 % Invalid Interpretation Code 42.0 - 52.0 % AO Workflow SS Hemoglobin (Bld) [Mass/Vol] 16.0 G/dL Invalid Interpretation Code 14.0 - 18.0 G/dL AO Workflow SS Lymphocyte, Absolute 1.1 103/mcL Invalid Interpretation Code 0.8 - 3.9 10^3/mcL AO Workflow SS Lymphocytes/100 WBC (Bld) 19.3 % Invalid Interpretation Code 10.0 - 50.0 % AO Workflow SS MCH (RBC) [Entitic mass] 31.5 pg Invalid Interpretation Code 27.0 - 31.2 pg AO Workflow SS MCHC 35.6 G/dL Invalid Interpretation Code 31.8 - 35.4 G/dL AO Workflow SS MCV (RBC) [Entitic vol] 88.7 fL Invalid Interpretation Code 80.0 - 94.0 fL AO Workflow SS Monocyte, Absolute 0.5 103/mcL Invalid Interpretation Code 0.2 - 1.0 10^3/mcL AO Workflow SS Monocytes/100 WBC (Bld) 8.2 % Invalid Interpretation Code 1.7 - 13.0 % AO Workflow SS Neutrophil, Absolute 3.9 103/mcL Invalid Interpretation Code 2.9 - 6.2 10^3/mcL AO Workflow SS Neutrophils/100 WBC (Bld) 70.3 % Invalid Interpretation Code 37.0 - 80.0 % AO Workflow SS Platelet mean volume (Bld) [Entitic vol] 6.7 fL Invalid Interpretation Code 7.4 - 10.4 fL AO Workflow SS Platelets (Bld) [#/Vol] 322 103/mcL Invalid Interpretation Code 130 - 400 10^3/mcL AO Workflow SS RBC (Bld) [#/Vol] 5.07 106/mcL Invalid Interpretation Code 4.04 - 6.13 10^6/mcL AO Workflow SS WBC 5.6 103/mcL Invalid Interpretation Code 4.6 - 10.8 10^3/mcL AO Workflow SS LABORATORYOrdered By: SYSTEM SYSTEM on 08-26-2021 GFR 95 ml/min/1.73sqm Invalid Interpretation Code AO Chemistry S GFR Non- 78 ml/min/1.73sqm Invalid Interpretation Code AO Chemistry S Monocyte distribution width Auto (Bld) [Entitic vol] Not Performed 1 *NA* (08/26/21 9:03 AM) Invalid Interpretation Code 0.00 - 20.00 AO Hematology S Comment on above: Result Comment: MDW testing performed only on adult ER patients between the ages of 18-89 years. LABORATORYOrdered By: Tj Ruiz on 08-26-2021 Hep C Ab Non-Reactive (08/26/21 9:03 AM) Invalid Interpretation Code Non-Reactive AH ADM SS Hep C Ab Int Nonreactive: Samples with a value < 0.80 are considered nonreactive (negative) for antibodies to HCV.A negative test result does not exclude the possibility of exposure to or infection with HCV. HCV antibodies may be undetectable in some stages of the infection and in some clinical conditions. Invalid Interpretation Code AH Chemistry S LABORATORYOrdered By: Haider Woods on 04-09-2021 Albumin BCP dye [Mass/Vol] 4.0 G/dL Invalid Interpretation Code 3.5 - 5.0 G/dL AO ADM SS Albumin/Globulin [Mass ratio] 1.4 {ratio} Invalid Interpretation Code 1.1 - 2.5 ratio AO ADM SS ALP [Catalytic activity/Vol] 64 U/L Invalid Interpretation Code 40 - 135 U/L AO ADM SS ALT With P-5'-P [Catalytic activity/Vol] 41 U/L Invalid Interpretation Code 16 - 63 U/L AO ADM SS AST With P-5'-P [Catalytic activity/Vol] 27 U/L Invalid Interpretation Code 10 - 40 U/L AO ADM SS Bilirubin [Mass/Vol] 0.7 mg/dL Invalid Interpretation Code 0.2 - 1.0 mg/dL AO ADM SS C-Reactive Protein mg/dL Invalid Interpretation Code 0.0 - 0.9 mg/dL AO Chemistry S Calcium [Mass/Vol] 9.1 mg/dL Invalid Interpretation Code 8.4 - 10.2 mg/dL AO ADM SS Chloride [Moles/Vol] 106 mmol/L Invalid Interpretation Code 98 - 107 mmol/L AO ADM SS CO2 [Moles/Vol] 27 mmol/L Invalid Interpretation Code 22 - 29 mmol/L AO ADM SS Creatinine [Mass/Vol] 0.83 mg/dL Invalid Interpretation Code 0.70 - 1.30 mg/dL AO ADM SS Electrolyte Balance 11.0 mEq/L Invalid Interpretation Code 4.0 - 15.0 mEq/L AO ADM SS Globulin 2.9 G/dL Invalid Interpretation Code AO ADM SS Glucose [Mass/Vol] 139 mg/dL Invalid Interpretation Code 70 - 105 mg/dL AO ADM SS Potassium [Moles/Vol] 4.4 mmol/L Invalid Interpretation Code 3.5 - 5.1 mmol/L AO ADM SS Protein [Mass/Vol] 6.9 G/dL Invalid Interpretation Code 6.4 - 8.2 G/dL AO ADM SS Sodium [Moles/Vol] 144 mmol/L Invalid Interpretation Code 136 - 145 mmol/L AO ADM SS Urea nitrogen [Mass/Vol] 14 mg/dL Invalid Interpretation Code 7 - 18 mg/dL AO ADM SS Urea nitrogen/Creatinine [Mass ratio] 17 ratio Invalid Interpretation Code 7 - 27 ratio AO ADM SS Uric Acid Lvl 4.0 mg/dL Invalid Interpretation Code 3.5 - 7.2 mg/dL AO ADM SS LABORATORYOrdered By: Barbara Rendon on 04-09-2021 Basophil, Absolute 0.00 103/mcL Invalid Interpretation Code 0.00 - 0.19 10^3/mcL AO Auto Heme SS Basophils/100 WBC (Bld) 0.4 % Invalid Interpretation Code 0.0 - 2.5 % AO Auto Heme SS Eosinophil, Absolute 0.10 103/mcL Invalid Interpretation Code 0.00 - 0.40 10^3/mcL AO Auto Heme SS Eosinophils/100 WBC (Bld) 1.8 % Invalid Interpretation Code 0.0 - 7.0 % AO Auto Heme SS Erythrocyte distribution width (RBC) [Ratio] 13.0 % Invalid Interpretation Code 11.5 - 14.5 % AO Auto Heme SS Hematocrit (Bld) [Volume fraction] 44.8 % Invalid Interpretation Code 42.0 - 52.0 % AO Auto Heme SS Hemoglobin (Bld) [Mass/Vol] 15.7 G/dL Invalid Interpretation Code 14.0 - 18.0 G/dL AO Auto Heme SS Lymphocyte, Absolute 1.00 103/mcL Invalid Interpretation Code 0.77 - 3.85 10^3/mcL AO Auto Heme SS Lymphocytes/100 WBC (Bld) 22.7 % Invalid Interpretation Code 10.0 - 50.0 % AO Auto Heme SS MCH (RBC) [Entitic mass] 30.6 pg Invalid Interpretation Code 27.0 - 31.2 pg AO Auto Heme SS MCHC (RBC) [Mass/Vol] 35.0 G/dL Invalid Interpretation Code 31.8 - 35.4 G/dL AO Auto Heme SS MCV (RBC) [Entitic vol] 87.4 fL Invalid Interpretation Code 80.0 - 94.0 fL AO Auto Heme SS Monocyte, Absolute 0.20 103/mcL Invalid Interpretation Code 0.15 - 1.00 10^3/mcL AO Auto Heme SS Monocytes/100 WBC (Bld) 5.3 % Invalid Interpretation Code 1.7 - 13.0 % AO Auto Heme SS Neutrophil, Absolute 3.10 103/mcL Invalid Interpretation Code 2.85 - 6.16 10^3/mcL AO Auto Heme SS Neutrophils/100 WBC (Bld) 69.8 % Invalid Interpretation Code 37.0 - 80.0 % AO Auto Heme SS Platelet mean volume (Bld) [Entitic vol] 7.4 fL Invalid Interpretation Code 7.4 - 10.4 fL AO Auto Heme SS Platelets (Bld) [#/Vol] 316 103/mcL Invalid Interpretation Code 130 - 400 10^3/mcL AO Auto Heme SS RBC (Bld) [#/Vol] 5.13 106/mcL Invalid Interpretation Code 4.04 - 6.13 10^6/mcL AO Auto Heme SS WBC (Bld) [#/Vol] 4.40 103/mcL Invalid Interpretation Code 4.60 - 10.80 10^3/mcL AO Auto Heme SS LABORATORYOrdered By: SYSTEM SYSTEM on 04-09-2021 GFR 117 ml/min/1.73sqm Invalid Interpretation Code AO Chemistry S GFR Non- 96 ml/min/1.73sqm Invalid Interpretation Code AO Chemistry S Vital Signs Date Time Vital Sign Value Performing Clinician Facility 11-01-2023 17:54-0400 Body temperature 98.6 [degF] ALESHIA BEDOLLA APRN-SECURITY TEST ENGINEER [facility] 11-01-2023 17:54-0400 Diastolic Blood Pressure Non-Invasive 96 mm[Hg] ALESHIA KAPPER IT INFRASTRUCTURE SPECIALIST-SECURITY TEST ENGINEER [facility] 11-01-2023 17:54-0400 Heart rate 87 /min ALESHIA KAPPER IT INFRASTRUCTURE SPECIALIST-SECURITY TEST ENGINEER [facility] 11-01-2023 17:54-0400 Reason For Taking VItal Signs ALESHIA KAPPER IT INFRASTRUCTURE SPECIALIST-SECURITY TEST ENGINEER [facility] 11-01-2023 17:54-0400 Respiratory rate 16 /min ALESHIA KAPPER IT INFRASTRUCTURE SPECIALIST-SECURITY TEST ENGINEER [facility] 11-01-2023 17:54-0400 Systolic Blood Pressure Non-Invasive 130 mm[Hg] ALESHIA KAPPER IT INFRASTRUCTURE SPECIALIST-SECURITY TEST ENGINEER [facility] 11-01-2023 14:21-0400 Body temperature 98.24 [degF] ALESHIA KAPPER IT INFRASTRUCTURE SPECIALIST-SECURITY TEST ENGINEER [facility] 11-01-2023 14:21-0400 Diastolic Blood Pressure Non-Invasive 81 mm[Hg] ALESHIA KAPPER IT INFRASTRUCTURE SPECIALIST-SECURITY TEST ENGINEER [facility] 11-01-2023 14:21-0400 Heart rate 82 /min ALESHIA KAPPER IT INFRASTRUCTURE SPECIALIST-SECURITY TEST ENGINEER [facility] 11-01-2023 14:21-0400 Reason For Taking VItal Signs ALESHIA KAPPER IT INFRASTRUCTURE SPECIALIST-SECURITY TEST ENGINEER [facility] 11-01-2023 14:21-0400 Respiratory rate 16 /min ALESHIA KAPPER IT INFRASTRUCTURE SPECIALIST-SECURITY TEST ENGINEER [facility] 11-01-2023 14:21-0400 Systolic Blood Pressure Non-Invasive 129 mm[Hg] ALESHIA KAPPER IT INFRASTRUCTURE SPECIALIST-SECURITY TEST ENGINEER [facility] 11-01-2023 11:28-0400 Body temperature 98.24 [degF] ALESHIA PAIGEER IT INFRASTRUCTURE SPECIALIST-SECURITY TEST ENGINEER [facility] 11-01-2023 11:28-0400 Diastolic Blood Pressure Non-Invasive 78 mm[Hg] ALESHIA PAIGEER IT INFRASTRUCTURE SPECIALIST-SECURITY TEST ENGINEER [facility] 11-01-2023 11:28-0400 Heart rate 68 /min ALESHIA GIBSONER IT INFRASTRUCTURE SPECIALIST-SECURITY TEST ENGINEER [facility] 11-01-2023 11:28-0400 Reason For Taking VItal Signs ALESHIA BEDOLLA IT INFRASTRUCTURE SPECIALIST-SECURITY TEST ENGINEER [facility] 11-01-2023 11:28-0400 Respiratory rate 16 /min ALESHIA GIBSONER IT INFRASTRUCTURE SPECIALIST-SECURITY TEST ENGINEER [facility] 11-01-2023 11:28-0400 Systolic Blood Pressure Non-Invasive 114 mm[Hg] ALESHIA GIBSONER IT INFRASTRUCTURE SPECIALIST-SECURITY TEST ENGINEER [facility] 10-31-2023 17:52-0400 Body height 167.6 cm ALESHIA PAIGEER IT INFRASTRUCTURE SPECIALIST-SECURITY TEST ENGINEER [facility] 10-31-2023 17:52-0400 Body weight 80.1 kg ALESHIA BEDOLLA IT INFRASTRUCTURE SPECIALIST-SECURITY TEST ENGINEER [facility] 10-31-2023 17:52-0400 Body weight 28.52 kg/m2 ALESHIA PAIGEER IT INFRASTRUCTURE SPECIALIST-SECURITY TEST ENGINEER [facility] 10-31-2023 17:46-0400 Blood Pressure Location ALESHIA KAPPER IT INFRASTRUCTURE SPECIALIST-SECURITY TEST ENGINEER [facility] 10-31-2023 17:46-0400 Blood Pressure Method ALESHIA KAPPER IT INFRASTRUCTURE SPECIALIST-SECURITY TEST ENGINEER [facility] 10-31-2023 17:46-0400 Heart rate 78 /min ALESHIA KAPPER IT INFRASTRUCTURE SPECIALIST-SECURITY TEST ENGINEER [facility] 10-31-2023 17:02-0400 Blood Pressure Location ALESHIA KAPPER IT INFRASTRUCTURE SPECIALIST-SECURITY TEST ENGINEER [facility] 10-31-2023 17:02-0400 Blood Pressure Method ALESHIA KAPPER IT INFRASTRUCTURE SPECIALIST-SECURITY TEST ENGINEER [facility] 10-31-2023 17:02-0400 Heart rate 74 /min ALESHIA KAPPER IT INFRASTRUCTURE SPECIALIST-SECURITY TEST ENGINEER [facility] 10-31-2023 16:03-0400 Blood Pressure Location ALESHIA KAPPER IT INFRASTRUCTURE SPECIALIST-SECURITY TEST ENGINEER [facility] 10-31-2023 16:03-0400 Blood Pressure Method ALESHIA KAPPER IT INFRASTRUCTURE SPECIALIST-SECURITY TEST ENGINEER [facility] 10-31-2023 16:03-0400 Heart rate 77 /min ALESHIA KAPPER IT INFRASTRUCTURE SPECIALIST-SECURITY TEST ENGINEER [facility] 10-31-2023 12:57-0400 Body weight 80.1 kg ALESHIA KAPPER IT INFRASTRUCTURE SPECIALIST-SECURITY TEST ENGINEER [facility] 08-12-2022 11:52-0400 Diastolic Blood Pressure Non-Invasive [address] BARNEY ALVAREZ MD [facility] 08-12-2022 11:52-0400 Heart rate 70 /min DR BARNEY ALVAREZ MD [facility] 08-12-2022 11:52-0400 Respiratory rate 16 /min DR BARNEY ALVAREZ MD [facility] 08-12-2022 11:52-0400 Systolic Blood Pressure Non-Invasive [address] BARNEY ALVAREZ MD [facility] 08-12-2022 11:45-0400 Diastolic Blood Pressure Non-Invasive [address] BARNEY ALVAREZ MD [facility] 08-12-2022 11:45-0400 Heart rate 65 /min DR BARNEY ALVAREZ MD [facility] 08-12-2022 11:45-0400 Respiratory rate 16 /min DR BARNEY ALVAREZ MD [facility] 08-12-2022 11:45-0400 Systolic Blood Pressure Non-Invasive [address] BARNEY ALVAREZ MD [facility] 08-12-2022 11:40-0400 Diastolic Blood Pressure Non-Invasive [address] BARNEY ALVAREZ MD [facility] 08-12-2022 11:40-0400 Heart rate 64 /min DR BARNEY ALVAREZ MD [facility] 08-12-2022 11:40-0400 Respiratory rate 20 /min DR BARNEY ALVAREZ MD [facility] 08-12-2022 11:40-0400 Systolic Blood Pressure Non-Invasive [address] BARNEY ALVAREZ MD [facility] 08-12-2022 11:26-0400 Body temperature 98.06 [degF] DR BARNEY ALVAREZ MD [facility] 08-12-2022 11:20-0400 Respiratory Rate - Anes 11 br/min DR BARNEY ALVAREZ MD [facility] 08-12-2022 11:15-0400 Respiratory Rate - Anes 11 br/min DR BARNEY ALVAREZ MD [facility] 08-12-2022 11:10-0400 Respiratory Rate - Anes 9 br/min DR BARNEY ALVAREZ MD [facility] 08-12-2022 10:14-0400 Body height 167.[address] BARNEY ALVAREZ MD [facility] 08-12-2022 10:14-0400 Body weight 76.[address] BARNEY ALVAREZ MD [facility] 08-12-2022 10:14-0400 Body weight 27.03 kg/m2 DR BARNEY ALVAREZ MD [facility] 08-12-2022 10:00-0400 Heart rate 73 /min DR BARNEY ALVAREZ MD [facility] 02-18-2022 16:00-0500 Body temperature 98.2 [degF] Dr. Nazanin Mendoza Work Phone: [facility] Work Phone: 02-18-2022 16:00-0500 Diastolic blood pressure 84 mm[Hg] Dr. Nazanin Mendoza Work Phone: [facility] Work Phone: 02-18-2022 16:00-0500 Heart rate 71 /min Dr. Nazanin Mendoza Work Phone: [facility] Work Phone: 02-18-2022 16:00-0500 Respiratory rate 16 /min Dr. Nazanin Mendoza Work Phone: [facility] Work Phone: 02-18-2022 16:00-0500 SaO2% (BldA) [Mass fraction] 99 % Dr. Nazanin Mendoza Work Phone: [facility] Work Phone: 02-18-2022 16:00-0500 Systolic blood pressure 108 mm[Hg] Dr. Nazanin Mendoza Work Phone: [facility] Work Phone: 02-18-2022 14:45-0500 Inhaled oxygen flow rate 2 L/min Dr. Nazanin Mendoza Work Phone: [facility] Work Phone: 02-18-2022 11:53-0500 Body height 167.[address] Nazanin Mendoza Work Phone: [facility] Work Phone: 02-18-2022 11:53-0500 Body mass index (BMI) [Ratio] 27.3 kg/m2 Dr. Nazanin Mendoza Work Phone: [facility] Work Phone: 02-18-2022 11:53-0500 Body weight [address] Nazanin Mendoza Work Phone: [facility] Work Phone: 02-03-2022 08:51-0500 Body mass index (BMI) [Ratio] 27.4 kg/m2 Dr. Nazanin Mendoza Work Phone: [facility] Work Phone: 02-03-2022 08:51-0500 Body temperature 98 [degF] Dr. Nazanin Mendoza Work Phone: [facility] Work Phone: 02-03-2022 08:51-0500 Body weight 77.[address] Nazanin Mendoza Work Phone: [facility] Work Phone: 02-03-2022 08:51-0500 Diastolic blood pressure 93 mm[Hg] Dr. Nazanin Mendoza Work Phone: [facility] Work Phone: 02-03-2022 08:51-0500 Heart rate 78 /min Dr. Nazanni Mendoza Work Phone: [facility] Work Phone: 02-03-2022 08:51-0500 Respiratory rate 18 /min Dr. Nazanin Mendoza Work Phone: [facility] Work Phone: 02-03-2022 08:51-0500 SaO2% (BldA) [Mass fraction] 98 % Dr. Nazanin Mendoza Work Phone: [facility] Work Phone: 02-03-2022 08:51-0500 Systolic blood pressure 135 mm[Hg] Dr. Nazanin Mendoza Work Phone: [facility] Work Phone: 12-28-2021 12:07-0500 Diastolic blood pressure 98 mm[Hg] [facility] Work Phone: 12-28-2021 12:07-0500 Heart rate 90 /min [facility] Work Phone: 12-28-2021 12:07-0500 Respiratory rate 16 /min [facility] Work Phone: 12-28-2021 12:07-0500 SaO2% (BldA) [Mass fraction] 99 % [facility] Work Phone: 12-28-2021 12:07-0500 Systolic blood pressure 142 mm[Hg] [facility] Work Phone: 12-28-2021 10:55-0500 Body height 167.64 cm [facility] Work Phone: 12-28-2021 10:55-0500 Body mass index (BMI) [Ratio] 27.4 kg/m2 [facility] Work Phone: 12-28-2021 10:55-0500 Body temperature 97.4 [degF] [facility] Work Phone: 12-28-2021 10:55-0500 Body weight 77.11 kg [facility] Work Phone: Encounters Encounter Date Encounter Type Care Provider Facility Start: 04-18-2024 End: 04-18-2024 ambulatory REHANA CEJA IT INFRASTRUCTURE SPECIALIST-SECURITY TEST ENGINEER Facility:[facility] Start: 04-18-2024 End: 04-18-2024 Patient encounter procedure REHANA CEJA IT INFRASTRUCTURE SPECIALIST-SECURITY TEST ENGINEER [facility] Start: 03-15-2024 End: 03-15-2024 ambulatory Nazanin Mendoza Facility:[facility] Start: 12-27-2023 End: 12-27-2023 ambulatory REHANA CEJA IT INFRASTRUCTURE SPECIALIST-SECURITY TEST ENGINEER Facility:[facility] Start: 12-27-2023 End: 12-27-2023 Patient encounter procedure REHANA CEJA IT INFRASTRUCTURE SPECIALIST-SECURITY TEST ENGINEER [facility] Start: 11-20-2023 ambulatory Radames Maurer Fac ility:[facility] Start: 11-09-2023 End: 11-09-2023 ambulatory Bowen Aguilera Facility:[facility] Start: 11-09-2023 ambulatory Alejandra Lutz [facility] Start: 11-09-2023 End: 11-10-2023 [facility] Start: 10-31-2023 End: 11-01-2023 Emergency department patient visit CAYETANO KEY DO Facility:[facility] Start: 10-31-2023 End: 11-01-2023 Observation ALESHIA BEDOLLA IT INFRASTRUCTURE SPECIALIST-[facility] Start: 10-28-2023 ambulatory ALEKSANDR STEPHENSON [facility] Start: 10-25-[address] ALEKSANDR STEPHENSON DO Facili ty:[facility] Start: 10-25-2023 End: 10-29-2023 ambulatory REHANA CEJA IT INFRASTRUCTURE SPECIALIST-SECURITY TEST ENGINEER Facility:[facility] Start: 10-25-2023 End: 10-29-[address] ALEKSANDR STEPHENSON DO [facility] Start: 10-25-2023 End: 10-25-2023 ambulatory REHANA CEJA IT INFRASTRUCTURE SPECIALIST-SECURITY TEST ENGINEER Facility:[facility] Start: 10-25-2023 End: 10-25-[address] ALEKSANDR STEPHENSON DO [facility] Start: 05-02-2023 End: 05-02-2023 ambulatory REHANA CEJA IT INFRASTRUCTURE SPECIALIST-SECURITY TEST ENGINEER Facility:[facility] Start: 08-12-2022 End: 08-12-[address] BARNEY ALVAREZ MD [facility] Start: 07-21-2022 End: 07-25-2022 Outreach Lab REHANA CEJA IT INFRASTRUCTURE SPECIALIST-SECURITY TEST ENGINEER [facility] Start: 06-23-2022 End: 06-23-2022 Patient encounter procedure REHANA CEJA IT INFRASTRUCTURE SPECIALIST-SECURITY TEST ENGINEER [facility] Start: 02-18-2022 Non-patient / Non-visit Dr. Givens Work Phone: [facility] Start: 02-18-2022 End: 02-18-2022 Admission to same day surgery center [facility] Nazanin [facility]endoza [facility] Start: 02-18-2022 End: 02-18-[address] Nazanin Mendoza Work Phone: [facility] Work Phone: Start: 02-03-2022 End: 02-03-[address] Nazanin Mendoza Work Phone: [facility] Start: 12-28-2021 End: 12-28-2021 Emergency department patient visit [facility] Start: 08-26-2021 End: 08-26-2021 Patient encounter procedure BOB ROBERTSON IT INFRASTRUCTURE SPECIALIST-SECURITY TEST ENGINEER [facility] Start: 04-09-2021 End: 04-09-2021 Patient encounter procedure NAZANIN MENDOZA MD [facility] Procedures Date Procedure Procedure Detail Performing Clinician Start: 08-12-[address] BARNEY ALVAREZ MD Start: 02-18-2022 Lap Robotic Inguinal Hernia (Right) Dr. 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 [facility] Work Phone: Patient referral [facility] Work Phone: Immunizations Immunization Date Immunization Notes Care Provider Fa cili 03-24-2022 tetanus toxoid, redu kin diphtheria toxoid, and acellular pertussis vaccine, adsorbed; Translations: [Boostrix (Tdap)] REHANA CEJA IT INFRASTRUCTURE SPECIALIST-SECURITY TEST ENGINEER [facility] 11-09-2021 zoster vaccine recombinant REHANA CEJA IT INFRASTRUCTURE SPECIALIST-SECURITY TEST ENGINEER [facility] 06-09-2021 zoster vaccine recombinant BOB ROBERTSON IT INFRASTRUCTURE SPECIALIST-SECURITY TEST ENGINEER [facility] 02-21-2010 tetanus toxoid, redu kin diphtheria toxoid, and acellular pertussis vaccine, adsorbed NAZANIN MENDOZA MD [facility] Payers Date Payer Category Payer Unknown [id number] 2023 Self-pay 2023 Unknown [id number] 0c [id number] 1965 Unknown [id number] 2.16.8 [id number]. 1965 Unknown [id number] 2.16.8 40.1.851603.3.579.2. 1965 Unknown [id number] 2.16.8 40.1.099685.3.579.2 1965 Unknown [id number] 2.16.8 40.1.450091.3.579.2. 1965 Unknown [id number] 2.16.8 40.1.090635.3.579.2. 1965 Unknown [id number] 2.16.8 40.1.475230.3.579.2. 1965 Unknown [id number] 2.16.8 40.1.251639.3.579.2. 1965 Unknown [id number] 2.16.8 40.1.299709.3.579.2. 1965 Unknown [id number] 2.16.8 40.1.531027.3.579.2. 1965 Unknown [id number] 2.16.8 40.1.882625.3.579.2.627 Unknown [facility] [id number] Unknown [id number] 2.16.8 [id number] Unknown [id number] 2.16.8 40.1.277713.3.579.2.462 Unknown [id number] 2.16.8 40.1.678864.3.579.2.462 Unknown [id number] 2.16.8 40.1.970519.3.579.2.462 Unknown [id number] 2.16.8 40.1.341409.3.579.2.462 Unknown [id number] 2.16.8 40.1.813461.3.579.2.462 Unknown [id number] 2.16.8 40.1.878178.3.579.2.462 Unknown [id number] 2.16.8 40.1.804384.3.579.2.462 Unknown [id number] 2.16.8 [id number] Social History Date Type Detail Facility Start: 11-20-2018 Ex-smoker (finding) [facility] Comment on above: tobacco/smoke exposu re: none Start: 1965 Sex Assigned At Male A [facility] Start: 08-26-2021 Tobacco smoking status Smoker (findi ng) [facility] Comment on above: tobacco/smoke exposu re: none Start: 12-28-2021 End: 02-11-2022 Tobacco smoking status NHIS Unknown if ever smoked [facility] Work Phone: Start: 03-24-2022 End: 08-22-2023 Tobacco smoking status Never smoked tobacco (finding) [facility] Comment on above: tobacco/smoke exposu re: none Sexual Orientation [facility] Start: 08-16-2018 Sex Male (finding) [facility] Goals Date Patient Goal Desired Activity /State Functional Status Date Assessment Result Facility 11-01-2023 Functional Status Room check performed [facility] 11-01-2023 Functional Status [facility] 11-01-2023 Functional Status [facility] 11-01-2023 Functional Status Nurse Safety Ed harman q2hrs Performed 7pm-7am [facility] 10-31-2023 Functional Status [facility] 10-31-2023 Functional Status [facility] 10-31-2023 Functional Status [facility] 08-12-2022 Functional Status Sensory Deficits None A [facility] 08-12-2022 Functional Status Ambulating in room, Awake [facility] Mental Status Date Assessment Result Facility 11-01-2023 Mental Status Oriented x 4 [facility] 10-31-2023 Mental Status [facility] 10-31-2023 Mental Status [facility] 08-12-2022 Mental Status Oriented x 4 [facility] 02-18-2022 Cognitive function Voice/Name [facility] Work Phone: Clinical Notes 06-23-2022 to 11-10-2023 Note Date & Type Note Facility 11-10-2023 Note [facility] Medical Records Department [address] [place] [address] Discharge Summary 11/10/23 1316 MR#: [id number] Acct: [id number] Name: TEODORA LEO Rep #: [id number] : 1965 58 From: Radames Maurer DO PCP: Dr. Nazanin Mendoza MD Status:DIS IN Location: [facility] [id number] Providers Date of Admission: 11/09/23 Date of Discharge: 11/10/23 Primary Care Physician: Dr. Nazanin Mendoza MD Consultations 11/09/23 20:57 Consult: Cardiology Routine Consulting Provider: Omar Medina Reason for Consult: Chest Pain EMERGENT Consult: No MD Notified: Yes Date Notified: 11/09/23 Time Notified: 16:58 Method of Notification: ED Physician Initiated Reason For Visit: UNSTABLE ANGINA Diagnosis Discharge Diagnosis (1) Unstable angina: Status: Acute Code(s): I20.0 - Unstable angina Medications at Discharge Home Medications amlodipine 5 mg tablet 5 mg PO DAILY 30 days #30 tabs 11/10/23 aspirin 81 mg tablet,delayed release 81 mg PO BREAKFAST 90 days #90 tabs 11/10/23 atorvastatin 10 mg tablet 10 mg PO QHS 90 days #90 tabs 11/10/23 Hospital Course Operations None Procedures Cardiac catheterization, EKG and - (Chest x-ray) Summary of Care Provided Minutes Spent on Discharge: 35 Hospital Course: Patient is a 58-year-old male who presented [facility] ED on 11/09/2023 with recurrent chest pain and presyncopal symptoms. Short hospital course as noted below. Patient discharged home in stable condition on 11/09. 1. Recurrent chest pain with presyncopal symptoms ??? Cardiology followed. Echo done recently at [facility] showed EF 50 to 55%, no wall motion abnormalities. Stress test on 10/31 was negative. EKG normal on admit, troponins negative. Left heart cath on 11/09 showed 30% lesions in proximal LAD, 20% proximal lesion in circumflex, 50% lesion in RCA. No stents needed. Lipid panel with total cholesterol 158, LDL 87, HDL 57. A1c 5.3%. Per cardiology, discharged on aspirin 81 mg daily, atorvastatin 10 mg daily and amlodipine 5 mg daily. 14-day event monitor prescribed on discharge. Outpatient follow-up with cardiology as needed. 2. Hiatal hernia ??? Found incidentally on chest x-ray, patient asymptomatic. Outpatient monitoring. 3. History of recurrent right inguinal hernia ??? Repair with mesh [place] [address] Ly. No current issues. 4. History of remote tobacco abuse ??? Encouraged continued cessation. Total clinical time spent by myself addressing the patient's medical issues, reviewing all the data, and collaborating with patient's care team: 35 minutes. Physical Exam Const alert, oriented x3, no apparent distress, average body habitus, healthy appearing and well nourished General Appearance: cooperative, comfortable, well kempt and well developed HEENT normocephalic, head/scalp atraumatic, hearing grossly normal bilaterally, nasal mucous membranes and turbinates normal and moist oral mucous membranes Eyes PERRL, EOMs intact bilaterally and conjunctivae normal Neck full ROM Chest inspection of chest normal Resp normal respiratory effort, normal air movement, no use of accessory muscles and clear to auscultation bilaterally Cardio regular rate, regular rhythm, no murmurs and peripheral pulses 2+ throughout GI normal to inspection, nondistended, normoactive bowel sounds, soft to palpation, non-tender and non- distended Back/Spine normal ROM Extremity normal to inspection, full ROM and no pedal edema Skin no rashes or lesions noted Neuro no focal motor deficits and no sensory deficits noted Speech: speech normal Psych mental status grossly normal Weight / BMI Weight Weight: 74.3 kg Body Mass Index (BMI) 26.4 ABG / Lab / Microbiology Data 11/10/23 05:26 11/10/23 05:26 Laboratory: Laboratory Results - last 24 hr 11/09/23 12:42: Hemoglobin A1c 5.4 11/09/23 14:30: Troponin I High Sens 6 11/09/23 21:54: Troponin I High Sens 7 11/10/23 05:26: WBC 5.1, RBC 4.98, Hgb 15.0, Hct 44.1, MCV 88.6, MCH 30.1, MCHC 34.0, RDW Std Deviation 39.6, RDW Coeff of [place] 12.3, Plt Count 336, MPV 8.7, Sodium 141, Potassium 4.0, Chloride 109 H, Carbon Dioxide 24.0, Anion Gap 8, BUN 10, Creatinine 0.73, Estim Creat Clear Calc 99.54, Est GFR (MDRD) Af Amer 143, Est GFR (MDRD) Non-Af 118, BUN/Creatinine Ratio 13.8, Glucose 95, Hemoglobin A1c 5.3, Calcium 9.2, Total Bilirubin 1.30 H, AST 21, ALT 28, Alkaline Phosphatase 65, Total Protein 6.5, Albumin 3.4, Globulin 3.1, Albumin/Globulin Ratio 1.1, Triglycerides 69, Cholesterol 158, LDL Cholesterol 87, VLDL Cholesterol 14, HDL Cholesterol 57 Radiography Diagnostic Testing: Radiology Impression Chest X-Ray 11/09/23 12:46 IMPRESSION: Hiatal hernia. The lungs are clear. Electronically Signed: Michele Larson MD at (more content not included)... [facility] 11-01-2023 Hospital Discharge instructions Patient Education 11/01/2023 17:04:02 Heart Failure, Diagnosis Heart Failure, Diagnosis Heart failure is a condition in which the heart has trouble pumping blood because it has become weak or stiff. This means that the heart does not pump blood well enough for the body to stay healthy. For some people with heart failure, fluid may back up into the lungs. There may also be swelling (edema) in the lower legs. Heart failure is usually a long-term (chronic) condition. It is important for you to take good care of yourself and follow the treatment plan from your health care provider. What are the causes? This condition may be caused by: High blood pressure (hypertension). Hypertension causes the heart muscle to work harder than normal. This makes the heart stiff or weak. Coronary artery disease, or CAD. CAD is the buildup of cholesterol and fat (plaque) in the arteries of the heart. Heart attack, also called myocardial infarction. This injures the heart muscle, making it hard for the heart to pump blood. Abnormal heart valves. The valves do not open and close properly, forcing the heart to pump harder to keep the blood flowing. Heart muscle disease (cardiomyopathy or myocarditis). This is damage to the heart muscle. It can increase the risk of heart failure. Lung disease. The heart works harder when the lungs are not healthy. Abnormal heart rhythms. These can lead to heart failure. What increases the risk? The risk of heart failure increases as a person ages. This condition is also more likely to develop in people who: Are overweight. Are male. Smoke or chew tobacco. Abuse alcohol or illegal drugs. Have taken medicines that can damage the heart, such as chemotherapy drugs. Have diabetes. Have abnormal heart rhythms. Have thyroid problems. Have low blood counts (anemia). What are the signs or symptoms? Symptoms of this condition include: Shortness of breath with activity, such as when climbing stairs. A cough that does not go away. Swelling of the feet, ankles, legs, or abdomen. Losing weight for no reason. Trouble breathing when lying flat (orthopnea). Waking from sleep because of the need to sit up and get more air. Rapid heartbeat. Tiredness (fatigue) and loss of energy. Feeling light-headed, dizzy, or close to fainting. Loss of appetite. Nausea. Waking up more often during the night to urinate (nocturia). Confusion. How is this diagnosed? This condition is diagnosed based on: Your medical history, symptoms, and a physical exam. Diagnostic tests, which may include: ?Echocardiogram. ?Electrocardiogram (ECG). ?Chest X-ray. ?Blood tests. ?Exercise stress test. ?Radionuclide scans. ?Cardiac catheterization and angiogram. How is this treated? Treatment for this condition is aimed at managing the symptoms of heart failure. Medicines Treatment may include medicines that: Help lower blood pressure by relaxing (dilating) the blood vessels. These medicines are called JESSICA inhibitors (angiotensin-converting enzyme) and ARBs (angiotensin receptor blockers). Cause the kidneys to remove salt and water from the blood through urination (diuretics). Improve heart muscle strength and prevent the heart from beating too fast (beta blockers). Increase the force of the heartbeat (digoxin). Healthy behavior changes Treatment may also include making healthy lifestyle changes, such as: Reaching and staying at a healthy weight. Quitting smoking or chewing tobacco. Eating heart-healthy foods. Limiting or avoiding alcohol. Stopping the use of illegal drugs. Being physically active. Other treatments Other treatments may include: Procedures to open blocked arteries or repair damaged valves. Placing a pacemaker to improve heart function (cardiac resynchronization therapy). Placing a device to treat serious abnormal heart rhythms (implantable cardioverter defibrillator, or ICD). Placing a device to improve the pumping ability of the heart (left ventricular assist device, or LVAD). Receiving a healthy heart from a donor (heart transplant). This is done when other treatments have not helped. Follow these instructions at home: Manage other health conditions as told by your health care provider. These may include hypertension, diabetes, thyroid disease, or abnormal heart rhythms. Get ongoing education and support as needed. Learn as much as you can about heart failure. Keep all follow-up visits as told by your health care provider. This is important. Summary Heart failure is a condition in which the heart has trouble pumping blood because it has become weak or stiff. This condition is caused by high blood pressure and other diseases of the heart and lungs. Symptoms of this condition include shortness of breath, tiredness (fatigue), nausea, and swelling of the feet, ankles, legs, or abdomen. Treatments for this condition may include medicines, lifestyle changes, and surgery. Manage other health conditions as told by your health care provider. This information is not intended to replace advice given to you by your health care provider. Make sure you discuss any questions you have with your health care provider. Document Released: 02/07/2006 Document Revised: 04/27/2019 Document Reviewed: 04/27/2019 [employer] Patient Education 2020 [employer]. 11/01/2023 16:53:48 Nonspecific Chest Pain, Adult, Seux-bd-Prsz Nonspecific Chest Pain Chest pain can be caused by many different conditions. Some causes of chest pain can be life-threatening. These will require treatment right away. Serious causes of chest pain include: Heart attack. A tear in the body's main blood vessel. Redness and swelling (inflammation) around your heart. Blood clot in your lungs. Other causes of chest pain may not be so serious. These include: Heartburn. Anxiety or stress. Damage to bones or muscles in your chest. Lung infections. Chest pain can feel like: Pain or discomfort in your chest. Crushing, pressure, aching, or squeezing pain. Burning or tingling. Dull or sharp pain that is worse when you move, cough, or take a deep breath. Pain or discomfort that is also felt in your back, neck, jaw, shoulder, or arm, or pain that spreads to any of these areas. It is hard to know whether your pain is caused by something that is serious or something that is not so serious. So it is important to see your doctor right away if you have chest pain. Follow these instructions at home: Medicines Take rynp-fxa-kenkeol and prescription medicines only as told by your doctor. If you were prescribed an antibiotic medicine, take it as told by your doctor. Do not stop taking the antibiotic even if you start to feel better. Lifestyle Rest as told by your doctor. Do not use any products that contain nicotine or tobacco, such as cigarettes, e-cigarettes, and chewing tobacco. If you need help quitting, ask your doctor. Do not drink alcohol. Make lifestyle changes as told by your doctor. These may include: ?Getting regular exercise. Ask your doctor what activities are safe for you. ?Eating a heart-healthy diet. A diet and food and nutrition teacher (dietitian) can help you to learn healthy eating options. ?Staying at a healthy weight. ?Treating diabetes or high blood pressure, if needed. ?Lowering your stress. Activities such as yoga and relaxation techniques can help. General instructions Pay attention to any changes in your symptoms. Tell your doctor about them or any new symptoms. Avoid any activities that cause chest pain. Keep all follow-up visits as told by your doctor. This is important. You may need more testing if your chest pain does not go away. Contact a doctor if: Your chest pain does not go away. You feel depressed. You have a fever. Get help right away if: Your chest pain is worse. You have a cough that gets worse, or you cough up blood. You have very bad (severe) pain in your belly (abdomen). You pass out (faint). You have either of these for no clear reason: ?Sudden chest discomfort. ?Sudden discomfort in your arms, back, neck, or jaw. You have shortness of breath at any time. You suddenly start to sweat, or your skin gets clammy. You feel sick to your stomach (nauseous). You throw up (vomit). You suddenly feel lightheaded or dizzy. You feel very weak or tired. Your heart starts to beat fast, or it feels like it is skipping beats. These symptoms may be an emergency. Do not wait to see if the symptoms will go away. Get medical help right away. Call your local emergency services (911 in the [place] Do not drive yourself to the hospital. Summary Chest pain can be caused by many different conditions. The cause may be serious and need treatment right away. If you have chest pain, see your doctor right away. Follow your doctor's instructions for taking medicines and making lifestyle changes. Keep all follow-up visits as told by your doctor. This includes visits for any further testing if your chest pain does not go away. Be sure to know the signs that show that your condition has become worse. Get help right away if you have these symptoms. This information is not intended to replace advice given to you by your health care provider. Make sure you discuss any questions you have with your health care provider. Document Released: 07/26/2008 Document Revised: 08/10/2018 Document Reviewed: 08/10/2018 [employer] Patient Education 2020 [employer]. Follow Up Care 10/31/2023 12:54:12 With:LIVE SILVERIOCHUCK BARBA Address: [address] [place] [address] [address] [facility] [place] [address]- [phone] When:5 to 7 days Comments:new onset of heart failure [facility] 11-01-2023 Note Discharge Instructions Thank you for allowing [facility] to assist you with your healthcare needs. The following is important discharge information regarding your hospital visit. Your Care Team [facility] Inpatient medicine Your Diagnosis Chest discomfort Chewing tobacco nicotine dependence Hypertension What to do next Instructions From Your Doctor You were admitted last night due to chest discomfort radiating down to your hand and accompanied by shortness of breath. You reported similar episodes of shortness of breath and dizziness like this for the past week. We sent you for a lexiscan stress test today and that was negative for coronary artery ischemia. It did show a reduced ejection fraction, estimated at 46%. As we discussed, normal ejection fraction is 60-65%. This measures how much blood is pushed out of the left ventricle each time your heart beats. When your left ventricle is not pushing this normal amount of blood out, there can be abnormal stretching in the left side of the heart and fluid can back up in your lungs causing you to feel short of breath. I recommend that you follow-up with cardiology for further recommendations. We have a nurse practitioner here in [place] from Tuesday- who can make recommendations and adjust your medications. Her name is Linnea Silverio CNP, and I have included her phone number in your discharge paperwork. If you want to follow-up with your PCP first that is fine. It looks like you have an appointment tomorrow with Radha Padron. Also, as we discussed, the echo gives the best reading for your ejection fraction and that report is not available tonight. I will review it in the morning when I come in and let you know what it shows. If you are scheduled for an outpatient echo and stress test, you can cancel those. Please return to the ED with any new or worsening symptoms. Scheduled Follow-Up Appointments Appointment Type When With Where Contact Information StatusPC OV 11/02/2023 09:30 AM EDT RADHA PADRON [facility] [place] [address] [place] [phone] Confirmed HL Plain Stress Test 11/14/2023 06:00 AM EDT [facility] [phone] Confirmed Echo - Echocardiogram Adult 11/14/2023 09:00 AM EDT [facility] [phone] Confirmed PC OV 11/16/2023 10:30 AM EDT REHANA CEJA [facility] [place] Confirmed Follow Up Appointments Follow Up with LINNEA SILVERIO When:Within 5 to 7 days Where:[address] [facility] [place] [address] [phone] Additional Information: new onset of heart failure The Following Activity and Diet Have Been Ordered for You Discharge Activity - Ordered -- Resume your pre-hospitalization activity, 11/01/23 17:03:00 EDT Discharge Diet - Ordered -- No changes were made to your diet during your hospital stay. Please resume your pre hospitalization diet on discharge., 11/01/23 17:03:00 EDT The Following Equipment Has Been Ordered for You No qualifying data available. The Following Treatments Have Been Ordered for You Discharge Labs No qualifying data available. Discharge Radiology No qualifying data available. Other Therapies No qualifying data available. Post Acute Orders No qualifying data available. Someone Will Contact You Regarding These Home Health Referrals No home referrals have been ordered for you. No one will call you. Allergies Shellfish Vomiting Medications Please ask your primary doctor or pharmacist before taking any other medication not listed, including over the counter drugs, herbal medications, vitamins and or supplements as they may interact with your home medications. What How Much When Why Instructions Last Dose Unchanged amLODIPine (amLODIPine 5 mg oral tablet) 1 tab(s) by mouth Once a day Duration: 90 Days Unchanged DME (DME MISCellaneous) See instructions Elevated blood pressure reading BP cuff and machine, Dx: R03.0 Unchanged famotidine (Pepcid 20 mg oral tablet) 1 tab(s) by mouth Two (2) times a day Rash Duration: 10 Days Unchanged loratadine (loratadine 10 mg oral capsule) 1 cap by mouth Once a day Rash Please take this list to your next doctor s visit. Bring all medications you take, including over the counter medications, herbals and other supplements with you to your doctor s visit. Patients and families are reminded to discard old lists and to update any records with all medication providers or retail pharmacies. Education Materials Heart Failure, Diagnosis Heart failure is a condition in which the heart has trouble pumping blood because it has become weak or stiff. This means that the heart does not pump blood well enough for the body to stay healthy. For some people with heart failure, fluid may back up into the lungs. There may also be swelling (edema) in the lower legs. Heart failure is usually a long-term (chronic) condition. It is important for you to take good care of yourself and follow the treatment plan from your health care provider. What are the causes? This condition may be caused by: High blood pressure (hypertension). Hypertension causes the heart muscle to work harder than normal. This makes the heart stiff or weak. Coronary artery disease, or CAD. CAD is the buildup of cholesterol and fat (plaque) in the arteries of the heart. Heart attack, also called myocardial infarction. This injures the heart muscle, making it hard for the heart to pump blood. Abnormal heart valves. The valves do not open and close properly, forcing the heart to pump harder to keep the blood flowing. Heart muscle disease (cardiomyopathy or myocarditis). This is damage to the heart muscle. It can increase the risk of heart failure. Lung disease. The heart works harder when the lungs are not healthy. Abnormal heart rhythms. These can lead to heart failure. What increases the risk? The risk of heart failure increases as a person ages. This condition is also more likely to develop in people who: Are overweight. Are male. Smoke or chew tobacco. Abuse alcohol or illegal drugs. Have taken medicines that can damage the heart, such as chemotherapy drugs. Have diabetes. Have abnormal heart rhythms. Have thyroid problems. Have low blood counts (anemia). What are the signs or symptoms? Symptoms of this condition include: Shortness of breath with activity, such as when climbing stairs. A cough that does not go away. Swelling of the feet, ankles, legs, or abdomen. Losing weight for no reason. Trouble breathing when lying flat (orthopnea). Waking from sleep because of the need to sit up and get more air. Rapid heartbeat. Tiredness (fatigue) and loss of energy. Feeling light-headed, dizzy, or close to fainting. Loss of appetite. Nausea. Waking up more often during the night to urinate (nocturia). Confusion. How is this diagnosed? This condition is diagnosed based on: Your medical history, symptoms, and a physical exam. Diagnostic tests, which may include: ? Echocardiogram. ? Electrocardiogram (ECG). ? Chest X-ray. ? Blood tests. ? Exercise stress test. ? Radionuclide scans. ? Cardiac catheterization and angiogram. How is this treated? Treatment for this condition is aimed at managing the symptoms of heart failure. Medicines Treatment may include medicines that: Help lower blood pressure by relaxing (dilating) the blood vessels. These medicines are called JESSICA inhibitors (angiotensin-converting enzyme) and ARBs (angiotensin receptor blockers). Cause the kidneys to remove salt and water from the blood through urination (diuretics). Improve heart muscle strength and prevent the heart from beating too fast (beta blockers). Increase the force of the heartbeat (digoxin). Healthy behavior changes Treatment may also include making healthy lifestyle changes, such as: Reaching and staying at a healthy weight. Quitting smoking or chewing tobacco. Eating heart-healthy foods. Limiting or avoiding alcohol. Stopping the use of illegal drugs. Being physically active. Other treatments Other treatments may include: Procedures to open blocked arteries or repair damaged valves. Placing a pacemaker to improve heart function (cardiac resynchronization therapy). Placing a device to treat serious abnormal heart rhythms (implantable cardioverter defibrillator, or ICD). Placing a device to improve the pumping ability of the heart (left ventricular assist device, or LVAD). Receiving a healthy heart from a donor (heart transplant). This is done when other treatments have not helped. Follow these instructions at home: Manage other health conditions as told by your health care provider. These may include hypertension, diabetes, thyroid disease, or abnormal heart rhythms. Get ongoing education and support as needed. Learn as much as you can about heart failure. Keep all follow-up visits as told by your health care provider. This is important. Summary Heart failure is a condition in which the heart has trouble pumping blood because it has become weak or stiff. This condition is caused by high blood pressure and other diseases of the heart and lungs. Symptoms of this condition include shortness of breath, tiredness (fatigue), nausea, and swelling of the feet, ankles, legs, or abdomen. Treatments for this condition may include medicines, lifestyle changes, and surgery. Manage other health conditions as told by your health care provider. This information is not intended to replace advice given to you by your health care provider. Make sure you discuss any questions you have with your health care provider. Document Released: 02/07/2006 Document Revised: 04/27/2019 Document Reviewed: 04/27/2019 [employer] Patient Education 2020 [employer] Nonspecific Chest Pain Chest pain can be caused by many different conditions. Some causes of chest pain can be life-threatening. These will require treatment right away. Serious causes of chest pain include: Heart attack. A tear in the body's main blood vessel. Redness and swelling (inflammation) around your heart. Blood clot in your lungs. Other causes of chest pain may not be so serious. These include: Heartburn. Anxiety or stress. Damage to bones or muscles in your chest. Lung infections. Chest pain can feel like: Pain or discomfort in your chest. Crushing, pressure, aching, or squeezing pain. Burning or tingling. Dull or sharp pain that is worse when you move, cough, or take a deep breath. Pain or discomfort that is also felt in your back, neck, jaw, shoulder, or arm, or pain that spreads to any of these areas. It is hard to know whether your pain is caused by something that is serious or something that is not so serious. So it is important to see your doctor right away if you have chest pain. Follow these instructions at home: Medicines Take rfpr-eoj-jyasxtz and prescription medicines only as told by your doctor. If you were prescribed an antibiotic medicine, take it as told by your doctor. Do not stop taking the antibiotic even if you start to feel better. Lifestyle Rest as told by your doctor. Do not use any products that contain nicotine or tobacco, such as cigarettes, e-cigarettes, and chewing tobacco. If you need help quitting, ask your doctor. Do not drink alcohol. Make lifestyle changes as told by your doctor. These may include: ? Getting regular exercise. Ask your doctor what activities are safe for you. ? Eating a heart-healthy diet. A diet and food and nutrition teacher (dietitian) can help you to learn healthy eating options. ? Staying at a healthy weight. ? Treating diabetes or high blood pressure, if needed. ? Lowering your stress. Activities such as yoga and relaxation techniques can help. General instructions Pay attention to any changes in your symptoms. Tell your doctor about them or any new symptoms. Avoid any activities that cause chest pain. Keep all follow-up visits as told by your doctor. This is important. You may need more testing if your chest pain does not go away. Contact a doctor if: Your chest pain does not go away. You feel depressed. You have a fever. Get help right away if: Your chest pain is worse. You have a cough that gets worse, or you cough up blood. You have very bad (severe) pain in your belly (abdomen). You pass out (faint). You have either of these for no clear reason: ? Sudden chest discomfort. ? Sudden discomfort in your arms, back, neck, or jaw. You have shortness of breath at any time. You suddenly start to sweat, or your skin gets clammy. You feel sick to your stomach (nauseous). You throw up (vomit). You suddenly feel lightheaded or dizzy. You feel very weak or tired. Your heart starts to beat fast, or it feels like it is skipping beats. These symptoms may be an emergency. Do not wait to see if the symptoms will go away. Get medical help right away. Call your local emergency services (911 in the [place] Do not drive yourself to the hospital. Summary Chest pain can be caused by many different conditions. The cause may be serious and need treatment right away. If you have chest pain, see your doctor right away. Follow your doctor's instructions for taking medicines and making lifestyle changes. Keep all follow-up visits as told by your doctor. This includes visits for any further testing if your chest pain does not go away. Be sure to know the signs that show that your condition has become worse. Get help right away if you have these symptoms. This information is not intended to replace advice given to you by your health care provider. Make sure you discuss any questions you have with your health care provider. Document Released: 07/26/2008 Document Revised: 08/10/2018 Document Reviewed: 08/10/2018 [employer]vier Patient Education 2020 [employer] Additional Information VACCINATE! IT SAVES LIVES! Members of the community who have not yet received the COVID-19 vaccine and would like to receive it can visit one of [facility] vaccine clinics. There are many vaccine clinic locations within the [facility]. For locations and available times, please visit https://gettheshot.coronavirus.[place].gov/. It is important to note that some COVID mobile vaccine clinics are held outdoors and may be canceled in rainy or stormy conditions. To learn more about pediatric vaccinations (ages 5-11), we invite you to visit the [employer] webpage. [email or web address].[email or web address]/pa [email or web address]-[email or web address]-[email or web address] To learn more about the COVID-19 vaccine, we invite you to visit the CDC website for a list of frequently asked questions.https://www.cdc.gov/cor onavirus/2019-ncov/vaccines/faq.h tml [email or web address] Patient Portal Access Instructions: Stay connected with your healthcare team and access your personal medical information anytime with the [employer]games Patient Portal. Please follow the directions below to create your [employer]games account: 1.Access the email account you provided upon registration to the hospital/physician office.2.Look for an invitation email from [facility].3.Open the email and access the invitation link: Accept Invitation to flaregames.4.Fill in the required duckworth to create your account. To access your account, visit [email or web address]. Click the blue button labeled Access Patient Portal and then log in with the username and password that you created in the steps above. You will be able to view your test results, lab results, a summary of your visits, upcoming appointments and more. There is also a convenient messaging option where you can send secure messages to your provider. In addition, you will have the ability to download any documents or summaries to your computer and/or send the information securely to a physician. Remember that your healthcare information is confidential, so carefully consider who you will allow to register on the [facility] One[facility] Patient Portal for access to your information. You can also access the [facility] Patient Portal on the [facility] rosa. Simply click on Patient Portal and then log into your account. If you would like to receive a full copy of your medical records, please contact the [facility] Medical Records Department by calling [phone], Tuesday through Tuesday between 8 a.m. and 4:30 p.m. HOW TO SAFELY DISPOSE OF PRESCRIPTION MEDICATIONS Please use one of the following methods to safely dispose of your unused medications. 1.Use a drug disposal kit: the drug disposal pouch allows you to safely discard your old and unused drugs. Ask your nurse to give you one when you are discharged.2.Visit a local take-back location: Many local pharmacies and police departments have programs that collect old and unwanted prescription drugs. Call your local pharmacy or go to http://Sense of Skin/6N6Fn9j to find one close to you.3.Make use of household items: Use cat litter or old coffee grounds to dispose medications if other options are not available. Mix your drugs with these household products, seal them in an airtight container and throw it into the garbage. Call [facility]: [phone] to be sure your drugs can be disposed of in this way. Some medicines may require a different approach.4.Never flush your medications down the toilet. IF YOU HAVE BEEN PRESCRIBED AN OPIOID FOR PAIN If you have been prescribed an opioid (such as hydrocodone, oxycodone or morphine), it is critical to understand the possible side effects and risks of opioid pain medications. Even when taken as directed, opioids can have several side effects including: Tolerance, meaning you might need to take more of a medication for the same pain relief. Nausea, vomiting and/or constipation. Sleepiness, dizziness, dry mouth, confusion, depression or itching. Physical dependence, meaning you have withdrawal symptoms when a medication is stopped, can develop within a few days. KNOW YOUR RESPONSIBILITIES It is important to know exactly how much and how often to take the opioid pain medications you are prescribed. Never take opioids in higher amounts or more often than prescribed. Do not combine opioids with alcohol or other drugs that cause drowsiness, such as benzodiazepines, also known as benzos, including diazepam and alprazolam, muscle relaxants or sleep aids. Never sell or share prescription opioids. This is illegal. Store opioids in a secure place and out of reach of others (including children, family, friends and visitors). The last page of this document has been signed and retained as a CHART COPY. Signatures Patient Education Materials Heart Failure, Diagnosis Nonspecific Chest Pain, Adult, Uvat-yo-Gcyk Medication Leaflets My discharge plan and instructions have been reviewed and explained to me and I,TEODORA LEO understand my current condition and have read and understand these discharge instructions. I have received a written copy of the plan/instructions. If I have questions, I am aware that I should contact my doctor. Patient/Major Gifts Director Signature: Date/Time: Relationship to Patient: ____ Witness Name/Signature: Date/Time: [facility] 11-01-2023 Evaluation + Plan note Extrac chuckie from: Title:History and Physical Author:ALESHIA BEDOLLA APRN-SECURITY TEST ENGINEER Date:11/01/23 1. Chest discomfort Acute, new onset yesterday but patient having intermittent episodes of dizziness, shortness of breath and chest discomfort for a week. EKG in PCP's office showed normal sinus rhythm but repeat in ED is showing T wave abnormalities in inferior leads. Patient admitted for observation on telemetry and stress test and echocardiogram this morning. Troponin negative x 4. Continue nitroglycerin 04 mg s/l PRN for chest pain. Repeat CBC and BMP in the am. 2. Hypertension Chronic. Continue Amlodipine 5 mg PO daily. SBP goal of 140 or less. 3. Chewing tobacco nicotine dependence Chronic. Encourage cessation. Patient denies need for nicotine patch while admitted. DVT prophylaxis with Lovenox sc. Code status: Full Code. Labs, diagnostic test and progress notes reviewed as noted in HPI. Plan of care discussed with patient. All questions answered. Patient verbalizes understanding and is agreeable with plan of care. This case was discussed with collaborating physician, Dr. Cayetano Key. 75 minutes spent reviewing past diagnostic tests, reviewing lab results, vital sign trends, medical history, reviewing medications and ordering home medications, examining patient, discussed plan of care with care team, collaborating with physician, and documenting in chart. Future Appointments Appointment Date:11/02/2023 09:30:00 AM Scheduled Provider:RADHA PADRON Location:[facility] Appointment Type:PC OV Appointment Date:11/14/2023 06:00:00 AM Scheduled Provider: Location:[facility] Appointment Type:HL Plain Stress Test Appointment Date:11/14/2023 09:00:00 AM Scheduled Provider: Location:[facility] Appointment Type:Echo - Echocardiogram Adult Appointment Date:11/16/2023 10:30:00 AM Scheduled Provider:REHANA CEJA Location:[facility] Appointment Type:PC OV [facility] 09-10-2024 Note* Exam Date Time Procedure Performing Provider Status 11/01/23 12:01 PM Echocardiogram, Adult - CV Auth (Verified) [facility] 09-10-2024 Note ORIGINAL NM MYOCARDIAL SPECT STRESS/REST CLINICAL STATEMENT: cp TECHNIQUE: Lexiscan dose: 0.4 mg Radiopharmaceutical (stress): Tc-99m Sestamibi Dose:31.1 mCi Radiopharmaceutical (rest): Tc-99m Sestamibi Dose:10.4 mCi SPECT acquisition and processing Reconstruction and reorientation of SPECT images into short axis, vertical and horizontal long axisplanes Quantitative LVEF assessment COMPARISON:none REPORT:Overall fair quality study. Mild motion noted on review of rotating raw images. No clear fixed or reversible defects. Left ventricular ejection fraction is 46%, end diastolic volume is 46 ml and TID ratio is 0.99. IMPRESSION: No clear evidence of ischemia or infarction. Low normal left ventricular ejection fraction, please correlate with an echo. ECG portion will be dictated separately. Interpreted By: Tristan Stockton Preliminary Report By: Tristan Stockton Electronically Signed By: Tristan Stockton Dictated Date: 11/01/2023 4:24:44 PM Prelim Date: 11/01/2023 4:24:44 PM Sign Date: 11/01/2023 4:28:18 PM Ordering Provider:Aleshia [facility]09-10-2024 Note Date of Service 11/01/2023 Chief Complaint Patient states that he was recently diagnosed with high blood pressure and started on medication a week ago but is still experiencing high blood pressure. History of Present Illness Patient is a 58-year-old male, who follows with Rehana Ceja CNP with a past medical history significant for hypertension, GERD and tobacco use, presented to [facility] emergency department with the chief complaint of chest tightness radiating into his left hand and shortness of breath yesterday. Patient states that he had an episode on Labor Day of shortness of breath and diaphoresis lasting a short amount of time. It did resolve but then he had additional episodes of shortness of breath and dizziness during the week that also resolved quickly. He did see his PCP on 10/24 due to these episodes and had an EKG which revealed normal sinus rhythm. His blood pressure was elevatedat this visit into the 150's and patient was started on Amlodipine 5 mg PO daily. His PCP also ordered an outpatient stress test and echocardiogram but patient had not had those tests yet. Yesterday,with this chest tightness radiating to his left hand, dizziness and shortness of breath, family felt that patient should present to the ED for evaluation. EKG done in the ED revealed T wave abnormalities which appear to be new compared to the office EKG. Patient denies any fever, chills, cough, shortness of breath, chest pain, abdominal pain, nausea or dysuria. In the emergency department, chest x-ray revealed no acute radiographic findings. EKG revealed sinus rhythm with borderline T wave abnormalities in inferior leads. CBC and BMP were unremarkable. Troponin negative x 2. No medications were administered in the ED. The case was discussed with the ED ronald sician who recommended admission for stress test in the am and observation. Patient was transferredto telemetry for observation. We will trend serial troponin x 2 overnight. Send patient for echocardiogram and lexiscan stress test in the am. Start nitroglycerin 0.4 mg PO PRN for chest pain. RepeatCBC and BMP in the am. Patient seen and evaluated this morning while resting in bed, at the bedside. Physical exam was unremarkable this morning. Patient denies any chest tightness or pain this morning. Discussed planof care with patient and and they are agreeable with this plan. Will return later to discuss the results of the stress test with patient/. He is aware that, if there are any abnormalities onthe stress, he will likely need to be transferred to [facility] for cardiology consult. All questions answered. Review of Systems Review of Systems: Reviewed in detail, including general health, HEENT, cardiovascular, respiratory, gastrointestinal, genitourinary, endocrine, musculoskeletal, neurologic, vascular, skin, and psychiatric. All are negative except for those listed in the History of Present Illness. Physical Exam Vitals and Measurements T: 36.7 C (Oral) TMIN: 36.7 C (Oral) TMAX: 36.9 C (Oral) HR: 66 (Monitored) RR: 16 BP: 104/79 SpO2:97% HT: 167.6 cm WT: 73.8 kg BMI: 28.52 Weight Current Weight Dosing Weight: 80.1 kg (10/31/23) Current Weight: 73.8 kg (11/01/23) Dosing Weight: 80.1 kg (10/31/23) General: No acute distress. Patient is alert and appropriate. Skin: No rash. Skin is warm, dry and intact. HEENT: Head is normocephalic, atraumatic. Pupils are equal, round and reactive. Neck: Supple. No lymphadenopathy, thyromegaly. Lungs: Bilaterally clear but diminished without crepitation or wheeze. Unlabored. Heart: Heart is regular rhythm, S1, S2. No murmurs, gallops or rubs. Abdomen: Abdomen is soft, nontender. Bowels sounds present in all quadrants. Extremities: No clubbing, cyanosis, or edema. Peripheral pulses palpable. No calf tenderness. Neurological: Patient is awake and alert to person, place and time. Following simple commands, moving all extremities. Lab Results 10/31 05:21 WBC: 6.9 Hgb: 15.7 Hct: 45.6 Platelet: 322 Neutrophil %: 64.0 Glucose Level: 92 Sodium Level: 140 Potassium Level: 4.5 BUN: 12 Creatinine Lvl (s): 0.94 10/30 13:46 WBC: 5.7 Hgb: 15.3 Hct: 43.2 Platelet: 320 Neutrophil %: 75.8 Glucose Level: 85 Sodium Level: 139 Potassium Level: 4.0 BUN: 14 Creatinine Lvl (s): 0.77 Imaging Results and Diagnostics XR Chest 1 View Result Date: October 31, 2023 Verified By: FRANCO HUGHES MD CLINICAL STATEMENT: IMPRESSION: No acute radiographic findings. Assessment/Plan 1. Chest discomfort Acute, new onset yesterday but patient having intermittent episodes of dizziness, shortness of breath and chest discomfort for a week. EKG in PCP's office showed normal sinus rhythm but repeat in ED is showing T wave abnormalities in inferior leads. Patient admitted for observation on telemetry andstress test and echocardiogram this morning. Troponin negative x 4. Continue nitroglycerin 04 mg s/l PRN for chest pain. Repeat CBC and BMP in the am. 2. Hypertension Chronic. Continue Amlodipine 5 mg PO daily. SBP goal of 140 or less. 3. Chewing tobacco nicotine dependence Chronic. Encourage cessation. Patient denies need for nicotine patch while admitted. DVT prophylaxis with Lovenox sc. Code status: Full Code. Labs, diagnostic test and progress notes reviewed as noted in HPI. Plan of care discussed with patient. All questions answered. Patient verbalizes understanding and is agreeable with plan of care. This case was discussed with collaborating physician, Dr. Cayetano Key. 75 minutes spent reviewing past diagnostic tests, reviewing lab results, vital sign trends, medicalhistory, reviewing medications and ordering home medications, examining patient, discussed plan of care with care team, collaborating with physician, and documenting in chart. 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 Fatigue History of surgical amputation of finger of right hand Insomnia Need for hepatitis C screening test Paresthesia of hand, bilateral Scoliosis Screening for colon cancer Screening for prostate cancer Shortness of breath Snoring Unintentional weight loss Vitamin D deficiency Procedure/Surgical History Colonoscopy: 08/12/22 Hernia repair: 02/18/22 Appendectomy Hernia repair Traumatic amputation Medications Home Medications (4) Active amLODIPine 5 mg oral tablet 5 mg = 1 tab(s), Oral, qDay DME MISCellaneous See Instructions loratadine 10 mg oral capsule 10 mg = 1 cap(s), Oral, qDay Pepcid 20 mg oral tablet 20 mg = 1 tab(s), Oral, BID Allergies Shellfish Vomiting Social History Smoking Status - 04/09/2013 Former smoker Alcohol Use: Never., 11/20/2018 Home/Environment 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 Appetite Good. Eating Difficulties None. Caffeine intake amount: One coffee daily., 09/23/2021 Substance Abuse Use: Never., 11/20/2018 Tobacco Nicotine Use: Never (less than 100 in lifetime). Type: Oral (Snuff, Chew)., 08/22/2023 Family History Heart attack: Father. Heart disease: Mother and Father. Stroke: Father. Health Status Family Member(s) Family Member(s) Relationship: Father, Age: Unknown Immunizations tetanus/diphth/pertuss (Tdap) adult/adol: 0.5 mL (03/24/22) tetanus/diphth/pertuss (Tdap) adult/adol: 0 unknown unit (02/21/10) zoster vaccine, inactivated: 1 unknown unit (11/09/21) zoster vaccine, inactivated: 1 unknown unit (06/09/21) Code Status Code Status - Ordered -- 10/31/23 17:01:00 EDT, Full Code, Constant Order Digitally Signed by ALESHIA BEDOLLA on 11/01/2023 09:42 AM [facility]09-09-2024 Note ORIGINAL EXAMINATION: ONE XRAY VIEW OF THE CHEST10/31/2023 2:39 pm COMPARISON: 10/25/2023 HISTORY: ORDERING SYSTEM PROVIDED HISTORY: Reason for Exam: chest pain FINDINGS: The cardiomediastinal contours are normal. Vascular structures appear within normal limits. There is no consolidation. No pleural fluid or pneumothorax. No aggressive osseous lesions identified. IMPRESSION: No acute radiographic findings. Interpreted by: Franco Hughes MD Preliminary Report By: Franco Hughes MD Electronically signed By Franco Hughes MD Dictated Date: 10/31/2023 2:41:08 PM Prelim Date: 10/31/2023 2:41:37 PM Sign Date: 10/31/2023 2:41:37 PM [facility] NoteSinus rhythm Borderline T abnormalities, inferior leads Baseline wander in lead(s) V1 S1Q3T3 EKG interpretation is noted and agreed to in [facility]. The interpretation of this patient's EKG contributed directly to the care and management of this patient. Electronic Signature: ALISA MCKINNEY DO 10/31/2023 13:44:[address] [place] [address] 09-03-2024 Note ORIGINAL EXAMINATION: TWO XRAY VIEWS OF THE CHEST 10/25/2023 9:34 am COMPARISON: Chest x-ray June 23, 2022 HISTORY: ORDERING SYSTEM PROVIDED HISTORY: Reason for Exam: Shortness of breath with possible AK yesterday morning per patient. FINDINGS: The heart is normal in size with no vascular congestion. There is no consolidation, pleural effusion, or pneumothorax. There is mild scoliosis of the spine with mild multilevel degenerative changes noted. There is vertebral body height loss at T10. Subchondral cysts are noted within the left humeral head. IMPRESSION: No acute intrathoracic process. I have personally reviewed the images of this examination and agree with the resident's findings and interpretation. Interpreted by: Bowen Borges MD Preliminary Report By: Adan Sanchez Electronically signed By Bowen Borges MD Dictated Date: 10/25/2023 10:02:46 AM Prelim Date: 10/25/2023 11:57:37 AM Sign Date: 10/25/2023 11:57:37 AM [facility]ing [facility] Evaluation + Plan noteExtracted from: Title:Office Visit Note Author:BARNEY ALVAREZ MD Date:08/12/22 Orders: Lactated Ringers Infusion 1,000 mL, Start: 08/12/22 9:57:00 EDT, Rate: 20 mL/hr, 08/12/22 9:57:00 EDT Communication Order (scheduled) Communication Order (scheduled) Communication Order (scheduled) Consult to Anesthesia Sign Consent He is here for screening colonoscopy. Consent conference held. Future Appointments Appointment Date:09/13/2022 07:00:00 PM Scheduled Provider: Location:[facility] Appointment Type: Home Studies [facility] 06-22-2023 Hospital Discharge instructions Patient Education 08/12/2022 11:42:57 Colonoscopy, Adult, Care After Colonoscopy, Adult, Care After This sheet gives you information about how to care for yourself after your procedure. Your health care provider may also give you more specific instructions. If you have problems or questions, contact your health care provider. What can I expect after the procedure? After the procedure, it is common to have: A small amount of blood in your stool for 24 hours after the procedure. Some gas. Mild abdominal cramping or bloating. Follow these instructions at home: General instructions For the first 24 hours after the procedure: ?Do not drive or use machinery. ?Do not sign important documents. ?Do not drink alcohol. ?Do your regular daily activities at a slower pace than normal. ?Eat soft, dysp-fw-visnkm foods. Take cnqw-eaf-tjnwxbr or prescription medicines only as told by your health care provider. Relieving cramping and bloating Try walking around when you have cramps or feel bloated. Apply heat to your abdomen as told by your health care provider. Use a heat source that your healthcare provider recommends, such as a moist heat pack or a heating pad. ?Place a towel between your skin and the heat source. ?Leave the heat on for 20 30 minutes. ?Remove the heat if your skin turns bright red. This is especially important if you are unable to feel pain, heat, or cold. You may have a greater risk of getting burned. Eating and drinking Drink enough fluid to keep your urine pale yellow. Resume your normal diet as instructed by your health care provider. Avoid heavy or fried foods thatare hard to digest. Avoid drinking alcohol for as long as instructed by your health care provider. Contact a health care provider if: You have blood in your stool 2 3 days after the procedure. Get help right away if: You have more than a small spotting of blood in your stool. You pass large blood clots in your stool. Your abdomen is swollen. You have nausea or vomiting. You have a fever. You have increasing abdominal pain that is not relieved with medicine. Summary After the procedure, it is common to have a small amount of blood in your stool. You may also have mild abdominal cramping and bloating. For the first 24 hours after the procedure, do not drive or use machinery, sign important documents, or drink alcohol. Contact your health care provider if you have a lot of blood in your stool, nausea or vomiting, a fever, or increased abdominal pain. This information is not intended to replace advice given to you by your health care provider. Make sure you discuss any questions you have with your health care provider. Document Released: 09/21/2004 Document Revised: 11/30/2017 Document Reviewed: 04/20/2016 [employer] Patient Education 2020 [employer]. 08/12/2022 11:42:52 Monitored Anesthesia Care, Care After Monitored Anesthesia Care, Care After These instructions provide you with information about caring for yourself after your procedure. Your health care provider may also give you more specific instructions. Your treatment has been plannedaccording to current medical practices, but problems sometimes occur. Call your health care provider if you have any problems or questions after your procedure. What can I expect after the procedure? After your procedure, you may: Feel sleepy for several hours. Feel clumsy and have poor balance for several hours. Feel forgetful about what happened after the procedure. Have poor judgment for several hours. Feel nauseous or vomit. Have a sore throat if you had a breathing tube during the procedure. Follow these instructions at home: For at least 24 hours after the procedure: Have a responsible adult stay with you. It is important to have someone help care for you until youare awake and alert. Rest as needed. Do not: ?Participate in activities in which you could fall or become injured. ?Drive. ?Use heavy machinery. ?Drink alcohol. ?Take sleeping pills or medicines that cause drowsiness. ?Make important decisions or sign legal documents. ?Take care of children on your own. Eating and drinking Follow the diet that is recommended by your health care provider. If you vomit, drink water, juice, or soup when you can drink without vomiting. Make sure you have little or no nausea before eating solid foods. General instructions Take qwku-has-jukhatb and prescription medicines only as told by your health care provider. If you have sleep apnea, surgery and certain medicines can increase your risk for breathing problems. Follow instructions from your health care provider about wearing your sleep device: ?Anytime you are sleeping, including during daytime naps. ?While taking prescription pain medicines, sleeping medicines, or medicines that make you drowsy. If you smoke, do not smoke without supervision. Keep all follow-up visits as told by your health care provider. This is important. Contact a health care provider if: You keep feeling nauseous or you keep vomiting. You feel light-headed. You develop a rash. You have a fever. Get help right away if: You have trouble breathing. Summary For several hours after your procedure, you may feel sleepy and have poor judgment. Have a responsible adult stay with you for at least 24 hours or until you are awake and alert. This information is not intended to replace advice given to you by your health care provider. Make sure you discuss any questions you have with your health care provider. Document Released: 05/30/2016 Document Revised: 05/08/2018 Document Reviewed: 05/30/2016 [employer] Patient Education 2020 [employer]. Follow Up Care 07/28/2022 14:01:44 With:BARNEY ALVAREZ Address: [address] [place] [phone] Business (1) When: Unknown Comments:YOU WILL NOT NEED ANOTHER COLONOSCOPY FOR 10 YEARS. [facility] 06-22-2023 Summary of episode note Discharge Instructions Thank you for allowing [facility] to assist you with your healthcare needs. The following is importantdischarge information regarding your hospital visit. Your Care Team REHANA CEJA What to do next Scheduled Follow-Up Appointments [facility] 07:00 PM EDT [facility] Follow Up Appointments Follow Up with BARNEY ALVAREZ When Why: YOU WILL NOT NEED ANOTHER COLONOSCOPY FOR 10 YEARS. Where: [address] [place] [phone] Business (1) The Following Activity and Diet Have Been Ordered for You Discharge Activity - Ordered -- Other, Follow the post-operative/post-procedure activity instructions provided by your physician's office., 08/12/22 11:24:00 EDT Discharge Diet - Ordered -- Follow the post-operative/post-procedure diet instructions provided by your physician's office.,08/12/22 11:24:00 EDT Medications Please ask your primary doctor or pharmacist before taking any other medication not listed, including over the counter drugs, herbal medications, vitamins and or supplements as they may interact withyour home medications. What How Much When Instructions Last Dose Unchanged ibuprofen (ibuprofen 200 mg oral tablet) 2 tab(s) by mouth Every 6 hours as needed for pain or fever Unchanged polyethylene glycol 3350 with electrolytes (PEG-3350 with Electrolytes (Eqv-GoLYTELY) oral powder for reconstitution) See instructions Take as directed 1 day before colonoscopy. Follow instructions as provided by your GI provider at [facility]. Please take this list to your next doctor s visit. Bring all medications you take, including over the counter medications, herbals and other supplements with you to your doctor s visit. Patients and families are reminded to discard old lists and to update any records with all medication providers or retail pharmacies. Education Materials Colonoscopy, Adult, Care After This sheet gives you information about how to care for yourself after your procedure. Your health care provider may also give you more specific instructions. If you have problems or questions, contact your health care provider. What can I expect after the procedure? After the procedure, it is common to have: A small amount of blood in your stool for 24 hours after the procedure. Some gas. Mild abdominal cramping or bloating. Follow these instructions at home: General instructions For the first 24 hours after the procedure: ? Do not drive or use machinery. ? Do not sign important documents. ? Do not drink alcohol. ? Do your regular daily activities at a slower pace than normal. ? Eat soft, vgnf-tg-bcqpow foods. Take zhmm-trz-ypoljrg or prescription medicines only as told by your health care provider. Relieving cramping and bloating Try walking around when you have cramps or feel bloated. Apply heat to your abdomen as told by your health care provider. Use a heat source that your healthcare provider recommends, such as a moist heat pack or a heating pad. ? Place a towel between your skin and the heat source. ? Leave the heat on for 20 30 minutes. ? Remove the heat if your skin turns bright red. This is especially important if you are unable to feel pain, heat, or cold. You may have a greater risk of getting burned. Eating and drinking Drink enough fluid to keep your urine pale yellow. Resume your normal diet as instructed by your health care provider. Avoid heavy or fried foods thatare hard to digest. Avoid drinking alcohol for as long as instructed by your health care provider. Contact a health care provider if: You have blood in your stool 2 3 days after the procedure. Get help right away if: You have more than a small spotting of blood in your stool. You pass large blood clots in your stool. Your abdomen is swollen. You have nausea or vomiting. You have a fever. You have increasing abdominal pain that is not relieved with medicine. Summary After the procedure, it is common to have a small amount of blood in your stool. You may also have mild abdominal cramping and bloating. For the first 24 hours after the procedure, do not drive or use machinery, sign important documents, or drink alcohol. Contact your health care provider if you have a lot of blood in your stool, nausea or vomiting, a fever, or increased abdominal pain. This information is not intended to replace advice given to you by your health care provider. Make sure you discuss any questions you have with your health care provider. Document Released: 09/21/2004 Document Revised: 11/30/2017 Document Reviewed: 04/20/2016 [employer] Patient Education 2020 [employer]. Monitored Anesthesia Care, Care After These instructions provide you with information about caring for yourself after your procedure. Your health care provider may also give you more specific instructions. Your treatment has been plannedaccording to current medical practices, but problems sometimes occur. Call your health care provider if you have any problems or questions after your procedure. What can I expect after the procedure? After your procedure, you may: Feel sleepy for several hours. Feel clumsy and have poor balance for several hours. Feel forgetful about what happened after the procedure. Have poor judgment for several hours. Feel nauseous or vomit. Have a sore throat if you had a breathing tube during the procedure. Follow these instructions at home: For at least 24 hours after the procedure: Have a responsible adult stay with you. It is important to have someone help care for you until youare awake and alert. Rest as needed. Do not: ? Participate in activities in which you could fall or become injured. ? Drive. ? Use heavy machinery. ? Drink alcohol. ? Take sleeping pills or medicines that cause drowsiness. ? Make important decisions or sign legal documents. ? Take care of children on your own. Eating and drinking Follow the diet that is recommended by your health care provider. If you vomit, drink water, juice, or soup when you can drink without vomiting. Make sure you have little or no nausea before eating solid foods. General instructions Take ozky-gao-zkkobop and prescription medicines only as told by your health care provider. If you have sleep apnea, surgery and certain medicines can increase your risk for breathing problems. Follow instructions from your health care provider about wearing your sleep device: ? Anytime you are sleeping, including during daytime naps. ? While taking prescription pain medicines, sleeping medicines, or medicines that make you drowsy. If you smoke, do not smoke without supervision. Keep all follow-up visits as told by your health care provider. This is important. Contact a health care provider if: You keep feeling nauseous or you keep vomiting. You feel light-headed. You develop a rash. You have a fever. Get help right away if: You have trouble breathing. Summary For several hours after your procedure, you may feel sleepy and have poor judgment. Have a responsible adult stay with you for at least 24 hours or until you are awake and alert. This information is not intended to replace advice given to you by your health care provider. Make sure you discuss any questions you have with your health care provider. Document Released: 05/30/2016 Document Revised: 05/08/2018 Document Reviewed: 05/30/2016 [employer] Patient Education 2020 [employer]. Additional Information VACCINATE! IT SAVES LIVES! Members of the community who have not yet received the COVID-19 vaccine and would like to receive it can visit one of [facility] vaccine clinics. There are many vaccine clinic locations within the [facility]. For locations and available times, please visit [email or web address].[place].gov/. It is important to note that some COVID mobile vaccine clinics are held outdoors and may be canceled in rainy or stormy conditions. To learn more about pediatric vaccinations (ages 5-11), we invite you to visit the [facility] webpage. [email or web address].[email or web address]/pages/[email or web address]-Xbqpj-[email or web address]-[email or web address]-[email or web address] stions.htmlTo learn more about the COVID-19 vaccine, we invite you to visit the CDC website for a list of frequently asked questions.https://www.cdc.gov/coronavirus/2019-ncov/vaccines/faq.html [email or web address] Patient Portal Access Instructions: Stay connected with your healthcare team and access your personal medical information anytime with the [employer] Patient Portal. Please follow the directions below to create your [employer] account: 1.Access the email account you provided upon registration to the hospital/physician office.2.Look for an invitation email from [facility].3.Open the email and access the invitation link: AcceptInvitation to [facility].4.Fill in the required duckworth to create your account. To access your account, visit [email or web address]. Click the blue button labeled Access Patient Portal and then log in with the username and password that you created in the steps above. You will be able to view your test results, lab results, a summary of your visits, upcoming appointments and more. There is also a convenient messaging option where you can send secure messages to your p rovider. In addition, you will have the ability to download any documents or summaries to your computer and/or send the information securely to a physician. Remember that your healthcare information is confidential, so carefully consider who you will allowto register on the [employer] Patient Portal for access to your information. You can also access the [employer] Patient Portal on the [facility] rosa. Simply click on Patient Portal and then log into your account. If you would like to receive a full copy of your medical records, please contact the [facility] Medical Records Department by calling [phone], Tuesday through Tuesday between 8 a.m. and 4:30 p.m. HOW TO SAFELY DISPOSE OF PRESCRIPTION MEDICATIONS Please use one of the following methods to safely dispose of your unused medications. 1.Use a drug disposal kit: the drug disposal pouch allows you to safely discard your old and unuseddrugs. Ask your nurse to give you one when you are discharged.2.Visit a local take-back location: Many local pharmacies and police departments have programs that collect old and unwanted prescriptiondrugs. Call your local pharmacy or go to http://bit.ly/2E4Ys4g to find one close to you.3.Make use of household items: Use cat litter or old coffee grounds to dispose medications if other options arenot available. Mix your drugs with these household products, seal them in an airtight container andthrow it into the garbage. Call [facility]: [phone] to be sure your drugs can be disposed of in this way. Some medicines may require a different approach.4.Never flush your medications down the toilet. IF YOU HAVE BEEN PRESCRIBED AN OPIOID FOR PAIN If you have been prescribed an opioid (such as hydrocodone, oxycodone or morphine), it is critical to understand the possible side effects and risks of opioid pain medications. Even when taken as directed, opioids can have several side effects including: Tolerance, meaning you might need to take more of a medication for the same pain relief. Nausea, vomiting and/or constipation. Sleepiness, dizziness, dry mouth, confusion, depression or itching. Physical dependence, meaning you have withdrawal symptoms when a medication is stopped, can develop within a few days. KNOW YOUR RESPONSIBILITIES It is important to know exactly how much and how often to take the opioid pain medications you are prescribed. Never take opioids in higher amounts or more often than prescribed. Do not combine opioids with alcohol or other drugs that cause drowsiness, such as benzodiazepines, also known as benzos, including diazepam and alprazolam, muscle relaxants or sleep aids. Never sell or share prescription opioids. This is illegal. Store opioids in a secure place and out of reach of others (including children, family, friends and visitors). The last page of this document has been signed and retained as a CHART COPY. Signatures Patient Education Materials Colonoscopy, Adult, Care After Monitored Anesthesia Care, Care After Medication Leaflets My discharge plan and instructions have been reviewed and explained to me and IAHMET DOUGLAS L understand my current condition and have read and understand these discharge instructions. I have received a written copy of the plan/instructions. If I have questions, I am aware that I should contactmy doctor. Patient/Major Gifts Director Signature: Date/Time: Relationship to Patient: Witness Name/Signature: Date/Time: [facility]-2023 Anesthesiology Consult note Patient: TEODORA LEO Age: 57 years Sex: Male : 1965 Associated Diagnoses: None Author: JAYLEN RUDOLPH Assessment Postanesthesia assessment Vitals: Vital signs from flowsheet : Vital Signs 08/12/2022 11:20 EDT Heart Rate Monitored 78 bpm bpm Respiratory Rate - Anes 11 br/min br/min Systolic Blood Pressure Non-Invasive 95 mmHg mmHg Diastolic Blood Pressure Non-Invasive 71 mmHg mmHg 08/12/2022 11:15 EDT Heart Rate Monitored 83 bpm bpm Respiratory Rate - Anes 11 br/min br/min Systolic Blood Pressure Non-Invasive 94 mmHg mmHg Diastolic Blood Pressure Non-Invasive 72 mmHg mmHg 08/12/2022 11:10 EDT Heart Rate Monitored 68 bpm bpm Respiratory Rate - Anes 9 br/min br/min Systolic Blood Pressure Non-Invasive 98 mmHg mmHg Diastolic Blood Pressure Non-Invasive 76 mmHg mmHg 08/12/2022 11:08 EDT Systolic Blood Pressure Non-Invasive 110 mmHg mmHg Diastolic Blood Pressure Non-Invasive 75 mmHg mmHg 08/12/2022 10:00 EDT Apical Heart Rate 73 bpm Respiratory Rate 16 br/min Systolic Blood Pressure Non-Invasive 106 mmHg Diastolic Blood Pressure Non-Invasive 71 mmHg , Measurements from flowsheet . Mental status: alert & oriented x 4. Respiratory function: respirations are non-labored. Respiratory support: none. CV function: Normal rate. Cardiovascular support: none. Pain. Nausea status: see nursing documentation of medications. Postoperative hydration status: within normal limits. Digitally Signed by JAYLEN RUDOLPH on 08/12/2022 11:24 AM [facility]06-22-2023 Note Chief Complaint Screening colonoscopy History of Present Illness This is a preprocedural/presurgical H&P. The patient was originally evaluated by Lesly Elkins, the PA. Please refer to her note also. I independently and personally performed a history and physical examination with this patient and repeated the rose components of the exam/history. I have reviewed her note. The patient was scheduled for endoscopy based on that visit and was evaluated by me prior to it. Voice recognition software was utilized for this document and may contain recognition errors inherent in that process. The patient was referred for a screening colonoscopy. No current symptoms. Physical Exam Vitals and Measurements HR: 73(Apical) RR: 16 BP: 106/71 SpO2: 97% HT: 167.8 cm WT: 76.1 kg BMI: 27.03 Oxygen Therapy: Room air General appearance: The patient is alert and oriented and in no apparent distress. Vital signs werereviewed. HEENT: Hearing is appropriate. Sclera are clear and nonicteric. Nares normal. Oral mucosa is normal. Neck is free of lymphadenopathy. The trachea is midline. Chest: No supraclavicular lymphadenopathy. Lungs: Lungs are clear bilaterally. No rales or wheezing. Cardiac: Regular rhythm Abdomen: Bowel sounds are present. The abdomen is soft, nontender. No palpable masses. No organomegaly. No inguinal lymphadenopathy. Rectal examination is deferred. Extremities: No cyanosis or clubbing. Neurology: No gross focal neurologic deficits. Integument: No telangiectasias or petechiae are seen. Lymphatic: No supraclavicular cervical inguinal adenopathy found Psychiatric examination: The patient is alert and oriented. Cognition seems appropriate. Recent andremote memory intact. Affect is appropriate. 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 Appetite Good. Eating Difficulties None. Caffeine intake amount: One coffee daily., 09/23/2021 Substance Abuse Use: Never., 11/20/2018 Tobacco Nicotine Use: Never (less than 100 in lifetime). Type: Oral (Snuff, Chew)., 03/24/2022 Family History Heart attack: Father. Heart disease: Mother and Father. Stroke: Father. Assessment/Plan Orders: Lactated Ringers Infusion 1,000 mL, Start: 08/12/22 9:57:00 EDT, Rate: 20 mL/hr, 08/12/22 9:57:00 EDT Communication Order (scheduled) Communication Order (scheduled) Communication Order (scheduled) Consult to Anesthesia Sign Consent He is here for screening colonoscopy. Consent conference held. 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 Fatigue History of surgical amputation of finger of right hand Insomnia Need for hepatitis C screening test Paresthesia of hand, bilateral Screening for cardiovascular condition Screening for colon cancer Screening for diabetes mellitus Screening for prostate cancer Snoring Unintentional weight loss Vitamin D deficiency Well adult exam Historical No qualifying data Procedure/Surgical History Hernia repair: 02/18/22 Appendectomy Hernia repair Traumatic amputation Allergies NKA Medications What How Much When Instructions Last Dose Unchanged ibuprofen (ibuprofen 200 mg oral tablet) 2 tab(s) by mouth Every 6 hours as needed for pain or fever Unchanged polyethylene glycol 3350 with electrolytes (PEG-3350 with Electrolytes (Eqv-GoLYTELY) oral powder for reconstitution) See instructions Take as directed 1 day before colonoscopy. Follow instructions as provided by your GI provider at [facility]. Digitally Signed by BARNEY ALVAREZ MD on 08/12/2022 11:07 AM [facility]06-22-[facility]23 Anesthesiology Consult note Patient: TEODORA LEO Age: 57 years Sex: Male : 1965 Associated Diagnoses: None Author: TERESITA RODRIGUEZ APRN-VP LAB Preoperative Information Time of last food or liquid consumption: 08/11/2022 21:00:00 Anesthesia history Patient's history: negative. Family's history: negative. Review of Systems Ear/Nose/Mouth/Throat: Negative except as documented in history of present illness. Respiratory: Negative except as documented in history of present illness. Cardiovascular: Negative except as documented in history of present illness. Gastrointestinal: Negative except as documented in history of present illness. Genitourinary: Negative except as documented in history of present illness. Endocrine: Negative except as documented in history of present illness. Musculoskeletal: Negative except as documented in history of present illness. Integumentary: Negative except as documented in history of present illness. Neurologic: Negative except as documented in history of present illness. Health Status Allergies: Allergic Reactions (Selected) NKA, Allergies (1) ActiveReaction NKANone Documented Current medications: (Selected) Inpatient Medications Ordered Lactated Ringers Infusion 1,000 mL: 20 mL/hr, Intravenous Prescriptions Prescribed PEG-3350 with Electrolytes (Eqv-GoLYTELY) oral powder for reconstitution: See Instructions, Take asdirected 1 day before colonoscopy. 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 [place] license / SNOMED CT 747909810 / Confirmed Elevated blood pressure reading / SNOMED CT 288775954 / Confirmed Fatigue / SNOMED CT 765680577 / Confirmed History of surgical amputation of finger of right hand / SNOMED CT 8686101069 / Confirmed Insomnia / SNOMED CT 512645533 / Confirmed Chewing tobacco nicotine dependence / SNOMED CT 64026279 / Confirmed Paresthesia of hand, bilateral / SNOMED CT 4202735103 / Confirmed Screening for colon cancer / SNOMED CT 886490036 / Confirmed Screening for cardiovascular condition / SNOMED CT 212508463 / Confirmed Screening for prostate cancer / SNOMED CT 487922351 / Confirmed Well adult exam / SNOMED CT 929909006 / Confirmed Screening for diabetes mellitus / SNOMED CT 830967612 / Confirmed Snoring / SNOMED CT 769885088 / Confirmed Unintentional weight loss / SNOMED CT 7439122103 / Confirmed Need for hepatitis C screening test / SNOMED CT 797315933 / Confirmed Vitamin D deficiency / SNOMED CT 48187394 / Confirmed Canceled: Agitated depression / SNOMED CT 434605311 Canceled: Screening for hepatitis C declined / SNOMED CT 1223554182 Canceled: Unintentional weight loss / SNOMED CT 0201476226 Canceled: Vitamin D overdose / SNOMED CT 1497558941, Active Problems (17) Chewing tobacco nicotine dependence Elevated blood pressure reading 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 Family History: Heart disease Mother Father () Stroke Father () Heart attack Father () Procedure history: Hernia repair ([id number]) on 02/18/2022 at 56 Years. Comments: 03/24/2022 6:12 Marion Sanchez LPN inguinal Traumatic amputation ([id number]). Comments: 04/09/2013 12:12 CARLOS Amaya FINGER Appendectomy ([id number]). Hernia repair ([id number]). Social History Social & Psychosocial Habits Alcohol 11/20/2018 Use: Never Substance Abuse 11/20/2018 Use: Never Tobacco 03/24/2022 Tobacco Use: Never (less than 100 in l Type: Oral (Snuff, Chew) Comment: tobacco/smoke exposure: none - 11/20/2018 15:41 - Amanda Singh LPN Home/Environment 03/24/2022 Primary Bone Grinder: self Nutrition/Health 09/23/2021 Type of diet: Regular Appetite Good Eating Difficulties None Caffeine intake amount: One coffee daily . Physical Examination Vital Signs 08/12/2022 10:00 EDT Apical Heart Rate 73 bpm Respiratory Rate 16 br/min Systolic Blood Pressure Non-Invasive 106 mmHg Diastolic Blood Pressure Non-Invasive 71 mmHg Vital Signs(last 24 hrs) Last Charted Resp Rate 16 br/min (AUG 12 10:00) ENH953 mmHg (AUG 12 10:00) DBP71 mmHg (AUG 12 10:00) BMI27.03 (AUG 12 10:14) Measurements from flowsheet : Measurements 08/12/2022 10:14 EDT Height 167.8 cm Admission Weight 76.1 kg [place] Body Weight 63.94 kg BSA Admission 1.86 Body Mass Index 27.03 kg/m2 08/12/2022 10:00 EDT Height 167.8 cm Admission Weight 76.1 kg [place] Body Weight 63.94 kg Admission Body Mass Index 27.03 m2 Pain assessment: Pain Assessment 08/12/2022 10:00 EDT Primary Pain Intensity 0 Pain Scale Type 0-10 Pain scale . General: Alert and oriented. Airway: Normal neck range of motion. Mallampati classification: II (soft palate, fauces, uvula visible). Head: Normocephalic. Dentition Evaluation: Intact, Own teeth. Neck: Full range of motion. Respiratory: Lungs are clear to auscultation. Cardiovascular: Normal rate. Heart Sounds: Normal. Gastrointestinal: Soft. Musculoskeletal Normal range of motion. Integumentary: Intact, Warm, Dry. Neurologic: Alert, Oriented. Review / Management Results review: No qualifying data available , Lab results 08/12/2022 10:14 EDT Designated Person #1 We May Share TARA rico [phone] Designated Person #1 Relationship Spouse Height 167.8 cm Admission Weight 76.1 kg [place] Body Weight 63.94 kg BSA Admission 1.86 Body Mass Index 27.03 kg/m2 Status N/A Sensory Deficits None Infectious Disease Symptoms Patient states no symptoms Infectious Disease Recent Exposure No Alcohol and Drug Use No Employee of Institutional Living No Health Care Employee No History of Exposure to TB No History of Positive Chest X-Ray for TB No History of Positive TB Skin Test No Homeless No Known Immunosuppression No Recent Immigrant No Resident of Institutional Living No Bloody Sputum No Fatigue No Fever No Loss of Appetite No Night Sweats No Persistent Cough > 3 Weeks No Weight Loss No Barriers to Learning None evident Teaching Method Explanation, Printed materials Preferred Written Language Thai Preferred Spoken Language Thai Information Given by Patient Patient's Current Physicians AG Discharge To, Anticipated Home with family care Prev Test Positive/Diagnosis w/COVID-19 No Current Quarantine/Isolated any Illness No Any Contact with Sick Animals/Birds No Traveled Anywhere in Last 30 Days No N/A Personal Devices, Patient Valuables None Admission Note-Nursing Procedure/Therapy Intake 08/12/2022 10:13 EDT Lactated Ringers Injection Begin Bag 1,000 mL mL 08/12/2022 10:11 EDT Continuous IV Infusions LR Wrist Right 08/12/2022 22 gauge Peripheral IV Activity: Insert new site Peripheral IV Dressing Condition: Clean, Dry, Intact Peripheral IV Dressing Activity: Applied, Transparent dressing Peripheral IV Line Status/Patency: Continuous infusion Peripheral IV Line Care: Secured with tape Peripheral IV Site Condition: No complications Peripheral IV Equipment: Extension set Peripheral IV Number of Attempts: 1 08/12/2022 10:00 EDT Height 167.8 cm Admission Weight 76.1 kg [place] Body Weight 63.94 kg Admission Body Mass Index 27.03 m2 Apical Heart Rate 73 bpm Respiratory Rate 16 br/min Systolic Blood Pressure Non-Invasive 106 mmHg Diastolic Blood Pressure Non-Invasive 71 mmHg Primary Pain Intensity 0 Pain Scale Type 0-10 Pain scale Heart Rhythm Regular Respirations Unlabored Oxygen Therapy Room air Oxygen Saturation 97 % Abdomen Description Non-distended Bowel Sounds All Quadrants Present Urinary Elimination Voiding, no difficulties Mucous Membrane Color [place] Characteristics of Speech Clear Level of Consciousness Alert Strength All Extremities Strong Affect/Behavior Appropriate, Calm, Cooperative Orientation Oriented x 4 Patient Identified Identification band Tyler Motor (2) Moves 4 extremities voluntarily or on command Tyler Respirations (2) Spontaneous respiration without support, RR > 10 Ytler Blood Pressure (2) BP 20% above or below preanesthetic level Tyler Pulse (2) Pulse 20% above or below preanesthetic level Tyler Oxygen Saturation (2) 94% or more Tyler Level of Consciousness (2) Fully awake Tyler III Score 12 Standard Safety ID band on, Call device within reach, Bed in low position, Wheels locked . Assessment and Plan [place] [employer] Anesthesiologists (ASA) physical status classification: Class II. Anesthetic Preoperative Plan Premedication: intravenous. Anesthetic technique: MAC. Induction: intravenously. Maintenance airway: Mask. Postoperative pain management: Per surgeon. Risks discussed: nausea, vomiting, headache, sore throat, dental injury, hypotension, allergic reaction, serious complications. Informed consent: signed by patient. Notes: tobacco use. Digitally Signed by TERESITA RODRIGUEZ on 08/12/2022 10:49 AM [facility]05-04-2023 Note ORIGINAL EXAMINATION: TWO XRAY VIEWS OF THE CHEST06/23/2022 7:40 am XR Chest two views COMPARISON: None HISTORY: ORDERING SYSTEM PROVIDED HISTORY: Reason for Exam: unintentional weight loss, FINDINGS: No suspicious nodule, acute infiltrate, consolidation,mass, pneumothorax, pleural fluid, or vascular congestion is seen. Heart size and mediastinal contours are within normal limits for age and projection. No acute skeletal abnormality. There is mild scoliosis and multilevel degenerative changes in the spine. IMPRESSION: No acute cardiopulmonary process. Interpreted by: Tim Ramirez MD Preliminary Report By: Tim Ramirez MD Electronically signed By Tim Ramirez MD Dictated Date: 06/24/2022 12:20:36 AM Prelim Date: 06/24/2022 12:21:06 AM Sign Date: 06/24/2022 12:21:06 AM Ordering Provider: REHANA CEJA [facility]05-03-2023 Note ORIGINAL EXAMINATION: TWO XRAY VIEWS OF THE CHEST06/23/2022 7:40 am XR Chest two views COMPARISON: None HISTORY: ORDERING SYSTEM PROVIDED HISTORY: Reason for Exam: unintentional weight loss, FINDINGS: No suspicious nodule, acute infiltrate, consolidation,mass, pneumothorax, pleural fluid, or vascular congestion is seen. Heart size and mediastinal contours are within normal limits for age and projection. No acute skeletal abnormality. There is mild scoliosis and multilevel degenerative changes in the spine. IMPRESSION: No acute cardiopulmonary process. Interpreted by: Tim Ramirez MD Preliminary Report By: Tim Ramirez MD Electronically signed By Tim Ramirez MD Dictated Date: 06/24/2022 12:20:36 AM Prelim Date: 06/24/2022 12:21:06 AM Sign Date: 06/24/2022 12:21:06 AM Ordering [facility] Future Appointments Appointment Date:04/16/2021 08:00:00 AM Scheduled Provider:NAZANIN MENDOZA MD Location:[facility] Appointment Type:PC OV Diagnostic Tests Pending * Antinuclear Antibody Screen, Serum 04/09/21 * Rheumatoid Factor 04/09/21 [facility] + Plan note Future Appointments Appointment Date:09/23/2021 07:30:00 AM Scheduled Provider:BOB ROBERTSON Location:[facility] Appointment Type:PC OV Follow Up [facility] Evaluation + Plan note Future Appointments Appointment Date:07/21/2022 07:30:00 AM Scheduled Provider:REHANA CEJA Location:[facility] Appointment Type:PC OV Future Scheduled Tests Laboratory* Celiac Serology 06/21/22 [facility] Evaluation + Plan note Future Appointments Appointment Date:07/28/2022 07:30:00 AM Scheduled Provider: Location:[facility] Appointment Type:GI OV Consult [facility] Evaluation + Plan note Future Appointments Appointment Date:11/14/2023 07:45:00 AM Scheduled Provider: Location:[facility] Appointment Type:HL Plain Stress Test Appointment Date:11/14/2023 09:00:00 AM Scheduled Provider: Location:[facility] Appointment Type:Echo - Echocardiogram Adult Appointment Date:11/16/2023 10:30:00 AM Scheduled Provider:REHANA CEJA Location:[facility] Appointment Type:PC OV [facility] Evaluation + Plan note Future Appointments Appointment Date:11/02/2023 09:30:00 AM Scheduled Provider:RADHA PADRON Location:[facility] Appointment Type:PC OV Appointment Date:11/14/2023 07:45:00 AM Scheduled Provider: Location:[facility] Appointment Type:HL Plain Stress Test Appointment Date:11/14/2023 09:00:00 AM Scheduled Provider: Location:[facility] Appointment Type:Echo - Echocardiogram Adult Appointment Date:11/16/2023 10:30:00 AM Scheduled Provider:REHANA CEJA Location:[facility] Appointment Type:PC OV [facility] Evaluation + Plan note Future Appointments Appointment Date:01/02/2024 08:00:00 AM Scheduled Provider:REHANA CEJA Location:[facility] Appointment Type:PC Wellness Annual Appointment Date:02/08/2024 09:00:00 AM Scheduled Provider:LINNEA SILVERIO Location:[facility] Appointment Type:CV OV [facility] Evaluation + Plan note Future Appointments Appointment Date:01/01/2025 08:00:00 AM Scheduled Provider:REHANA CEJA Location:[facility] Appointment Type:PC Wellness Annual [facility] evaluation noteNo assessment information available [facility] Work Phone: evaluation note* Diagnosis Onset Date Resolution Status Recurrent right inguinal hernia acute [facility] Work Phone: Hospital course Narrative No data available for this section [facility] Discharge instructions No data available for this section [facility] Progress note No data available for this section [facility] Chief Complaint and Reason for Visit Chief Complaint ABD PAIN Chief Complaint ABD PAIN R Inguinal Hernia/ER F/U LAP ROBOTIC ING HERNIA MESH RT POSS BILAT LAP ROBOTIC ING HERNIA MESH RT POSS BILAT Reason for Visit Recurrent right ingu inal hernia Advance Directives No Advanced Directives Records Found Advance Directive Response Recorded Date/ Time Living Will No December 28 12:07pm Power of General Road Foreman No December 28, 2021 12:07pm Advance Directive Response Recorded Date/ Time Living Will No February 11 1:58pm Power of General Road Foreman No February 11, 2022 1:58pm Summary Purpose Family History No Family History Records Found Additional Source Comments Care Team (unrecognized sect ion and content) Care Team Personnel Name: BOB ROBERTSON APRN-SECURITY TEST ENGINEER Position: P4 Advanced Practice Nurse Med Service: Active Provider Member Role: Primary Care Physician Address: Address: [address] [place] [address]- Care Team Related Persons Name: VELIA LEO Goals (unrecognized section and content) Goals may be documented in a n alternate section Patient Care team informatio n (unrecognized section and content) Care Team Personnel Name: BARRY KAHN MD Member Role: Orthopaedist Address: Address: [facility] [address] [address]- [place] Name: REHANA CEJA APRN-SECURITY TEST ENGINEER Position: P4 Advanced News Cameraman Member Role: Primary Care Physician Address: Address: [address] [facility] [address] [facility] [place] [address]- [place] Name: YUMIKO SWAIN MD Position: P3 Physician - Urologist Member Role: Urologist Address: Address: [address] [place] [address] Care Team Related Persons Name: VELIA LEO Care Team Personnel Name: BARRY KAHN MD Member Role: Orthopaedist Address: Address: [address] [address]- [place] Name: REHANA CEJA APRN-SECURITY TEST ENGINEER Position: P4 Advanced News Cameraman Member Role: Primary Care Physician Address: Address: [address] [place] [address]- [place] Name: YUMIKO SWAIN MD Position: P3 Physician - Urologist Member Role: Urologist Address: Address: [address] [address]- Care Team Related Persons Name: VELIA LEO Care Team Personnel Name: BARRY KAHN MD Member Role: Orthopaedist Address: Address: [place] [id number]- [place] Name: REHANA CEJA APRN-SECURITY TEST ENGINEER Position: P4 Advanced News Cameraman Member Role: Primary Care Physician Address: Address: [address] [place] [address]- Name: YUMIKO SWAIN MD Position: P3 Physician - Urologist Member Role: Urologist Address: Address: [address] [place] [address]- Care Team Related Persons Name: VELIA LEO Care Team Personnel Name: BARRY KAHN MD Member Role: Orthopaedist Address: Address: [address] [address]- [place] Name: REHANA CEJA APRN-SECURITY TEST ENGINEER Position: P4 Advanced News Cameraman Member Role: Primary Care Physician Address: Address: [address] [place] [address]- [place] Name: YUMIKO SWAIN MD Position: P3 Physician - Urologist Member Role: Urologist Address: Address: [address] [address]- [place] Care Team Related Persons Name: VELIA LEO Care Team Personnel Name: BARRY KAHN MD Member Role: Orthopaedist Address: Address: [address] [address]- [place] Name: REHANA CEJA APRN-SECURITY TEST ENGINEER Position: P4 Advanced News Cameraman Member Role: Primary Care Physician Address: Address: [address] [place] [id number]- Name: YUMKIO SWAIN MD Position: P3 Physician - Urologist Member Role: Urologist Address: Address: [address] [place] [address] Care Team Related Persons Name: AHMET VELIA Care Team Personnel Name: Tere House Position: Bed Management Member Role: Other Name: BARRY KAHN MD Member Role: Orthopaedist Address: Address: [place] [address]- Name: REHANA CEJASECURITY TEST ENGINEER Position: P4 Advanced News Cameraman Member Role: Primary Care Physician Address: Address: [address] Name: YUMIKO SWAIN MD Position: P3 Physician - Urologist Member Role: Urologist Address: Address: [address] [place] [address] Care Team Related Persons Name: PORTER LEOE Care Team Personnel Name: Tere [facility] Position: Bed Management Member Role: Other Name: BARRY KAHN MD Member Role: Orthopaedist Address: Address: [place] [address]- Name: REHANA CEJA Position: P4 Advanced News Cameraman Member Role: Primary Care Physician Address: Address: [address] [place] [address]- Name: YUMIKO SWAIN MD Position: P3 Physician - Urologist Member Role: Urologist Address: Address: [address] [place] [address]- Care Team Related Persons Name: VELIA LEO Care Team Personnel Name: Tere [facility] Position: Bed Management Member Role: Other Name: BARRY KAHN MD Member Role: Orthopaedist Address: [place] [id number]- Telecom: Name: REHANA CEJASECURITY TEST ENGINEER Position: P4 Advanced News Cameraman Member Role: Primary Care Physician Address: [address] [place] [address]- Telecom: Name: YUMIKO SWAIN MD Position: P3 Physician - Urologist Member Role: Urologist Address: [address] [place] [address] [address] [place] [address]- Telecom: Care Team Related Persons Name: VELIA LEO (unrecognized sect ion and content) No Status Records FoundNo Status Records FoundNo Status Records Found INFORMATION SOURCE (unrecogn ized section and content) DATE CREATED AUTHOR 10/27/2023 [facility] DATE CREATED AUTHOR AUTHOR'S ORGANIZ ATION 03/15/2024 [facility] DATE CREATED AUTHOR AUTHOR'S ORGANIZ ATION 05/09/2024 [facility] FOR RECORDS PERTAINING TO PATIENTS WHO ARE OR HAVE BEEN ENROLLED IN A CHEMICAL DEPENDENCY/SUBSTANCEABUSE PROGRAM, SOME INFORMATION MAY BE OMITTED. This clinical summary was aggregated from multiple sources. Caution should be exercised in using it in the provision of clinical care. This summary normalizes information from multiple sources, and as a consequence, information in this document may materially change the coding, format and clinical context of patient data. In addition, data may be omitted in some cases. CLINICAL DECISIONS SHOULD BE BASED ON THE PRIMARY CLINICAL RECORDS. [employer] [facility]. provides no warranty or guarantee of the accuracy or completeness of information in this document.
[2024-07-24 22:25] LABS: Troponin T High Sensitivity 7 ng/L (<=22)
--- NOTE | 2024-07-24 22:29 | EDS_ITS ---
HPI History of Present Illness Chief Complaint: Neuro S/Sx Narrative Narrative: Chief complaint and HPI: Concern for recurrent TIAs. 59-year-old male with past medical history of HTN, HLD presents for evaluation for concern of TIAs. History taken by patient as well as significant other. Significant other states on 07/14 she came home and found the patient lying in the grass. At that time, he could not remember what he was doing or what he had done earlier in the day. It lasted several minutes but then resolved and patient's memory returned. He was lightheaded at that time. Patient followed up with his PCP regarding this and scheduled further testing for evaluation of possible TIA. Told the patient to present to the ED if this reoccurs. Patient states that 6 PM today he had an episode of 30 seconds where he had total memory loss. Associated symptom at that time was some pain in his left upper extremity. He now endorses some slight loss of sensation only in his shoulder on the left. found out and brought the patient for evaluation. Patient currently denies any fever, chills, headache, shortness of breath, chest pain abdominal pain, nausea, vomiting. Denies any aphasia, dysarthria, weakness. Review of systems: See HPI Medications: As listed on the chart Allergies: As listed on the chart PFSH: Per chart Vital signs: As listed on the chart. Reviewed. Physical exam: Gen: A&O x3, NAD Head: Normocephalic, atraumatic Eyes: No sclera icterus, conjunctiva clear, PERRL, EOMI ENT: Moist mucous membranes, No facial asymmetry Neck: Trachea midline, No JVD CV: RRR, no murmurs, no peripheral edema Resp: Lungs CTA BL, no w/r/c GI: Abd soft, non-distended, non-tender, no r/r/g Musc: Full ROM, no deformity, strength +5/5 in all extremities, no pronator drift, no ataxia Skin: Warm, dry, intact Neuro: Alert, oriented, grossly intact, sensation intact other than endorses dull sensation to the left shoulder only compared to the right, no aphasia, no dysarthria Psych: Cooperative, appropriate mood and affect PFSH PFSH Medical History Left carpal tunnel syndrome Bilateral knee pain Former smoker Obesity (BMI 30.0-34.9) Incisional hernia Hypokalemia Atypical chest pain Iron deficiency anemia Elevated PSA GERD (gastroesophageal reflux disease) Essential (primary) hypertension Lightheadedness SOB (shortness of breath) Osteoarthritis of left knee Left knee pain Arthritis Restless legs Migraine headache Chewing tobacco nicotine dependence Home Medications ?Medication ?Instructions ?Recorded ?Last Taken ?Type amlodipine 5 mg tablet 5 mg PO DAILY 30 days #30 ta bs 11/10/23 Unknown Rx aspirin 81 mg tablet,delayed 81 mg PO BREAKFAST 90 day s #90 tabs 11/10/23 Unknown Rx release atorvastatin 10 mg tablet 10 mg PO QHS 90 days #90 tab s 11/10/23 Unknown Rx metoprolol succinate 25 mg 25 mg PO DAILY 07/24/24 Unk nown History tablet,extended release 24 hr Allergy/AdvReac Type Severity Reaction Status Date / Time shellfish derived Allergy Anaphylaxis Verified 07/24/24 21:03 Family History Mother Heart disease Diabetes Hypertension Father Cancer Kidney disease Heart disease Surgical History Hx of appendectomy Hx of arthroscopy of shoulder Hx of inguinal hernia repair H/O hand surgery Social History household members: spouse Smoking Status: Current every day smoker tobacco type: smokeless tobacco alcohol intake: never substance use type: does not use EXAM Physical Exam Const Vital Signs: 07/24/24 21:03 07/24/24 23:02 Temperature 97.5 F L Temperature Source Temporal Pulse Rate 92 82 Respiratory Rate 18 20 H Blood Pressure 130/102 H 124/92 H Blood Pressure Mean 111 102 Pulse Ox 100 96 Oxygen Delivery Method Room Air MDM MDM MDM Narrative Medical decision making narrative: 59-year-old male with past medical history of HTN, HLD presents for evaluation for concern of TIAs. Patient has had 2 episodes of memory loss including today and on 07/14. Memory loss has resolved currently. Only deficit is duller sensation of the left shoulder compared to the right. Last known normal 6 PM. Patient outside the CVA window. Low suspicion for LVO given symptoms and physical exam. Differential diagnosis includes but is not limited to TIA, CVA, electrolyte abnormality, dehydration, UTI. NS bolus ordered. Laboratory workup ordered including CT head and CTA head and neck. CBC without leukocytosis or anemia. Coagulation panel unremarkable. BMP shows hyponatremia of 3.2, this is with hemolysis. P.o. potassium ordered. Will add on magnesium. Troponin unremarkable. CT of the head shows no acute intracranial abnormality. CTA of the head and neck shows no acute arterial abnormality. UA pending at this time. Patient will warrant admission for TIA/CVA workup although cannot rule out short episodes of total global amnesia. Patient and updated all results and confirmed understand the plan. Patient was discussed with hospitalist who accepted admission. EKG: Interpreted by me/EM physician: EKG shows normal sinus rhythm without any acute ischemic changes. Heart rate 80 Diagnostic: Interpreted by me/EM physician: Chest x-ray without pneumonia, effusion, cardiomegaly, pneumothorax. Radiology in agreement. Impression: 1. Multiple episodes of memory loss 2. Concern for TIA/CVA versus episodes of total global amnesia 3. Hypokalemia Lab Data Labs: Laboratory Results - last 24 hr 07/24/24 21:15 WBC 7.4 RBC 4.96 Hgb 15.2 Hct 42.9 MCV 86.5 MCH 30.6 MCHC 35.4 RDW Std Deviation 37.2 RDW Coeff of [place] 11.8 Plt Count 326 MPV 8.8 Immature Gran % (Auto) 0.700 Neut % (Auto) 75.1 H Lymph % (Auto) 17.2 L [place] % (Auto) 5.5 Eos % (Auto) 1.1 Baso % (Auto) 0.4 Absolute Neuts (auto) 5.6 Absolute Lymphs (auto) 1.27 Nucleated RBC % 0 PT 14.3 INR 1.1 APTT 27.5 Sodium 139 Potassium 3.2 L Chloride 105 Carbon Dioxide 19.1 L Anion Gap 15 BUN 9 Creatinine 0.83 Estim Creat Clear Calc 86.48 Est GFR (MDRD) Non-Af 101 BUN/Creatinine Ratio 10.6 Glucose 157 H Calcium 9.2 Troponin T High Sens 7 Radiography Diagnostic Testing: Clinical Impression(s) from Imaging Studies Brain CT 07/24/24 21:43 IMPRESSION: No acute intracranial abnormality. Reading Location: [place] [address] Head/Neck CTA 07/24/24 21:43 IMPRESSION: No acute arterial abnormality of the head or neck. Reading Location: [id number] Chest X-Ray 07/24/24 22:10 IMPRESSION: No acute cardiopulmonary abnormality. Reading Location: [id number] Discharge Plan Triage Chief Complaint: Neuro S/Sx ED Provider: Geronimo Morales Dx/Rx/DC Orders Prescriptions: No Action atorvastatin 10 mg Tablet 10 mg PO QHS 90 Days Qty: 90 0RF amlodipine 5 mg Tablet 5 mg PO DAILY 30 Days Qty: 30 2RF aspirin 81 mg Tablet,Delayed Release (Dr/Ec) 81 mg PO BREAKFAST 90 Days Qty: 90 0RF metoprolol succinate 25 mg tablet extended release 24 hr 25 mg PO DAILY Primary Care Provider: Rehana Ceja NP Referrals: Rehana Ceja UPSETTING MACHINE OPERATOR, UPSETTING MACHINE OPERATOR-C [Primary Care Provider] - Print Language: Tuvaluan
[2024-07-24 22:30] LABS: International Normalized Ratio 1.1; Partial Thromboplast Time 27.5 Seconds (24.1-36.2); Prothrombin Time (Protime)PT. 14.3 SECONDS (11.7-14.9)
[2024-07-24 23:02] VITALS: BP 124/92; PULSE 82; RESP 20; O2SAT 96
[2024-07-24 23:06] LABS: Anion Gap 15 (5-15); BUN 9 mg/dL (4-19); BUN/Creat Ratio 10.6 RATIO (10-20); Calcium,Total 9.2 mg/dL (7.6-11.0); Carbon Dioxide 19.1 mmol/L (21.0-32.0); Chloride 105 mmol/L (98-108); Creatinine, Serum 0.83 mg/dL (0.70-1.20); EST Glomerular Filtration Rate 101 (>60); Estimated Creatinine Clearance 86.48 ml/min (50-250); Glucose 157 mg/dL (70-99); Potassium 3.2 mmol/L (3.3-5.1); Sodium Level 139 mmol/L (133-145)
--- NOTE | 2024-07-24 23:28 | PCM.HP.STD ---
HPI - General General Date of Admission: 07/24/24 Date of Service: 07/24/24 Chief Complaint: Transient confusion. HPI Narrative The patient is a 59 y/o M w/ PMHx: Chew tobacco use, Chronic anemia/Fe deficiency anemia, GERD, HTN, HLD, RLS, Migraine headaches who presents to the [facility] ED with history at approximately 7 PM of complete amnesia lasting 15-30 seconds with complete resolution following however he also notes that he had mild dizziness on Tuesday which required him to lay down to avoid passing out prompting PCP evaluation who arrange outpatient evaluation. Patient had similar episode of confusion that was very short-lived on 07/14/2024 with memory resolution completely following. He does state some discomfort to the left shoulder and does have some mild altered sensation to the left shoulder focally as well as occasionally his left cheek. Currently he notes complete resolution of all symptoms. He currently denies any lightheadedness or dizziness. Workup in the ED included T97.5, heart 92, BP 130/102, respiratory rate 18, 100 % room air, CBC with WBC 7.4, he 1 15.2, platelet 326 without marked shift, unremarkable coags, BMP with potassium 3.2, carbon oxide 19.1, glucose 157, troponin 7, CT of the brain with no acute intracranial findings, CTA head and neck with no acute abnormalities, chest x-ray with no acute cardiopulmonary findings, EKG with SR without evidence of acute ischemia. In the ED patient ministered 1 L normal saline and potassium 40 mg p.o. x 1. UA pending upon evaluation. PFSH Medical History Left carpal tunnel syndrome Bilateral knee pain Former smoker Obesity (BMI 30.0-34.9) Incisional hernia Hypokalemia Atypical chest pain Iron deficiency anemia Elevated PSA GERD (gastroesophageal reflux disease) Essential (primary) hypertension Lightheadedness SOB (shortness of breath) Osteoarthritis of left knee Left knee pain Arthritis Restless legs Migraine headache Chewing tobacco nicotine dependence Home Medications ?Medication ?Instructions ?Recorded ?Last Taken ?Type amlodipine 5 mg tablet 5 mg PO DAILY 30 days #30 tabs 11/10/23 Unknown Rx aspirin 81 mg tablet,delayed 81 mg PO BREAKFAST 90 days #90 tabs 11/10/23 Unknown Rx release atorvastatin 10 mg tablet 10 mg PO QHS 90 days #90 tabs 11/10/23 Unknown Rx metoprolol succinate 25 mg 25 mg PO DAILY 07/24/24 Unknown History tablet,extended release 24 hr Allergy/AdvReac Type Severity Reaction Status Date / Time shellfish derived Allergy Anaphylaxis Verified 07/24/24 21:03 Family History Mother Heart disease Diabetes Hypertension Father Cancer Kidney disease Heart disease Surgical History Hx of appendectomy Hx of arthroscopy of shoulder Hx of inguinal hernia repair H/O hand surgery Social History household members: spouse Smokeless tobacco user: chewing tobacco alcohol intake: never substance use type: does not use ROS ROS Narrative Admission Review of Systems: CONSTITUTIONAL: No weight loss, fever, chills, + weakness or fatigue. HEENT: + Transient facial and left upper extremity paresthesias. Eyes: No visual loss, blurred vision, double vision or yellow sclerae. Ears, Nose, Throat: No hearing loss, sneezing, congestion, runny nose or sore throat. SKIN: No rash or itching, lesions, wounds. CARDIOVASCULAR: + Episode of lightheadedness/dizziness with near syncopal sensation. No chest pain, chest pressure or chest discomfort, palpitations, edema, orthopnea. RESPIRATORY: No shortness of breath, cough or sputum, wheezing, hemoptysis. GASTROINTESTINAL: No anorexia, nausea, vomiting or diarrhea, abdominal pain, melena, BRBPR. GENITOURINARY: No dysuria, frequency, urgency or retention. NEUROLOGICAL: + Transient episodes of amnesia, left upper extremity specifically shoulder and occasional facial paresthesias no headache, dizziness, syncope, paralysis, ataxia, focal weakness, change in bowel or bladder control, seizure. MUSCULOSKELETAL: + muscle, back pain, joint pain or stiffness. HEMATOLOGIC: No anemia, bleeding or bruising. LYMPHATICS: No enlarged nodes. No history of splenectomy. PSYCHIATRIC: No history of depression or anxiety. ENDOCRINOLOGIC: No reports of sweating, cold or heat intolerance. No polyuria or polydipsia. ALLERGIES: + History of shellfish anaphylaxis. Vital Signs Vital Signs Vital Signs: 07/24/24 21:03 07/24/24 23:02 Temperature 97.5 F L Temperature Source Temporal Pulse Rate 92 82 Respiratory Rate 18 20 H Blood Pressure 130/102 H 124/92 H Blood Pressure Mean 111 102 Pulse Ox 100 96 Oxygen Delivery Method Room Air Weight Weight: 166 lb 10.711 oz Body Mass Index (BMI) 26.9 Physical Exam Narrative Physical Examination: General: Awake, alert, oriented x 3 and cooperative, seated upright in the ED bed, currently and himself note that he is at his neurological baseline. Skin: Normal color, normal turgor, no icterus, no cyanosis except occasional stage ecchymoses, abrasion. HEENT: AT/NC, EOMI, PERRLA, MMM, no carotid bruits or JVD noted. Lungs: CTA bilaterally, moderate effort, mild decrease BL bases, no rales, ronchi or wheezing. Heart: Regular rate and rhythm; no gallop, rub audible. Abdomen: Soft, NTTP, ND, normal BS, no appreciated HSM. 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 Neurological: Patient awake, alert, oriented as noted, cognitive function intact; pupils equally reactive to light and accommodation, cranial nerves grossly normal, moving all 4 extremities, no focal deficits, strength preserved, finger-nose and [id number] appropriate, equivocal Babinski, sensation intact. Psychiatric: Affect appears fatigued otherwise normal, no acute evidence of depressive or anxiety feelings. Results Lab / Micro Data 07/24/24 21:15 07/24/24 21:15 Labs: Laboratory Results - last 24 hr 07/24/24 21:15: WBC 7.4, RBC 4.96, Hgb 15.2, Hct 42.9, MCV 86.5, MCH 30.6, MCHC 35.4, RDW Std Deviation 37.2, RDW Coeff of [place] 11.8, Plt Count 326, MPV 8.8, Immature Gran % (Auto) 0.700, Neut % (Auto) 75.1 H, Lymph % (Auto) 17.2 L, [place] % (Auto) 5.5, Eos % (Auto) 1.1, Baso % (Auto) 0.4, Absolute Neuts (auto) 5.6, Absolute Lymphs (auto) 1.27, Nucleated RBC % 0, PT 14.3, INR 1.1, APTT 27.5, Sodium 139, Potassium 3.2 L, Chloride 105, Carbon Dioxide 19.1 L, Anion Gap 15, BUN 9, Creatinine 0.83, Estim Creat Clear Calc 86.48, Est GFR (MDRD) Non-Af 101, BUN/Creatinine Ratio 10.6, Glucose 157 H, Calcium 9.2, Troponin T High Sens 7 Imaging Radiology Impression Brain CT 07/24/24 21:43 IMPRESSION: No acute intracranial abnormality. Reading Location: [id number] Head/Neck CTA 07/24/24 21:43 IMPRESSION: No acute arterial abnormality of the head or neck. Reading Location: [id number] Chest X-Ray 07/24/24 22:10 IMPRESSION: No acute cardiopulmonary abnormality. Reading Location: [id number] Assessment & Plan Assessment/Plan (1) TIA (transient ischemic attack): PLAN: Plan The patient is a 59 y/o M w/ PMHx: Chew tobacco use, Chronic anemia/Fe deficiency anemia, GERD, HTN, HLD, RLS, Migraine headaches who presents to the [facility] ED with history at approximately 7 PM of complete amnesia lasting 15-30 seconds with complete resolution following however he also notes that he had mild dizziness on Tuesday which required him to lay down to avoid passing out prompting PCP evaluation who arrange outpatient evaluation. #1. Transient episode of global amnesia, resolved, concurrently noted also recent near syncopal event of unclear etiology in addition to transient intermittent left shoulder paresthesias: Will admit to PCU, will obtain MRI Brain, ECHO, PT/OT/Speech/Nutrition evaluation per protocol. Will allow permissive HTN to be cautious, maintain on asa, add statin w/ AM FLP, fall precautions. Mag, TSH, FLP, HgbA1c requested. Maintain on fall and aspiration precautions. Orthostatics requested. Will continue to cycle cardiac enzymes. #2. Hypokalemia: Admission K+ 3.2, magnesium pending, supplementation given, repeat level in AM. #3. Chronic anemia/iron deficiency anemia: Admission hemoglobin 15.2, MCV 86.5, baseline hemoglobin noted previously similar/normal range, not on any chronic iron supplementation currently noted, clarified to be certain, trend CBC. #4. Chew tobacco usage: Encourage cessation, nicotine gum as needed. #5. Hypertension: Given #1 evaluation will maintain permissive hypertension with as needed agents per stroke protocol pending MRI. #6. GERD: Per current was not a regimen, will have as needed Mylanta. #7. Restless leg syndrome: Per current list on a regimen, if necessary may add Requip. #8. Hyperlipidemia: Continue home statin regimen. AM FLP. #9. DVT prophylaxis: Lovenox. Charges/Coding Visit Charges Inpatient E&M: 81835 Init Hosp L2
[2024-07-24 23:39] VITALS: BP 124/92; PULSE 76; RESP 15; TEMP 36.5; O2SAT 93
--- OUTSIDE RECORDS SUMMARY | 2024-07-24 23:43 | XMS RPT_ITS | CCD ---
Author Organization [facility] ion [facility] Care Team Providers Care Public Health Nurse Name Role Phone NAZANIN MENDOZA MD Primary Care Physician BOB RICE Primary Care Physician [phone] Dr. Nazanin Mendoza Primary Care Provider [phone] Dr. Ricardo Ly Attending Provider Merly Hankins Referring Provider Unavailable Dr. Ricardo Ly Other Provider [phone] Primary Care Physician ARAMIS BARBA, [facility] Unavail able DAVID BOCANEGRA Attending Un available [facility] SACHIN RENAE, DR BRANDON Attending Unavailable SACHIN RENAE, DR BRANDON Attending Unavailable [facility] Unavail able ROMAR DO, DR BRANDON Attending Unavailable ARAMIS [facility] Unavail able ARAMIS CORRAL-THOR, [facility] Unavail able ROMAR DO, DR BRANDON Attending [...] Care Unavailable ALEKSANDR STEPHENSON Attending Unavailable LORSON LAWYER-BULLARD OPERATOR, [facility] Unavail able ALEKSANDR STEPHENSON Attending Unavailable LORSON LAWYER-BULLARD OPERATOR, [facility] Unavail able CAYETANO KEY DO Attending Unavailable KAPPER LAWYER-BULLARD OPERATOR, ALESHIA Gonzalez Admitting Unavaila ble LORSON LAWYER-BULLARD OPERATOR, [facility] Unavail able ALEKSANDR STEPHENSON Attending Unavailable LORSON LAWYER-BULLARD OPERATOR, [facility] Care Unavail able LORSON LAWYER-BULLARD OPERATOR, REHANA Attending Unavail able LORSON LAWYER-BULLARD OPERATOR, [place] Primary Care Unavail able LORSON LAWYER-BULLARD OPERATOR, REHANA Attending Unavail able LORSON LAWYER-BULLARD OPERATOR, [facility] Care Unavail able Allergies Allergy Classification Reported Allergen(s) Allergy Type Date of Onset Reaction(s) Facility (3 sources) Shellfish; Translations: [shellfish derived] Allergy to substance 2 Anaphylaxis [facility] Repository (3 sources) Shellfish Food allergy Vomiting (disorder) [facility] Medications Current Medications Medication Drug Class(es) Dates [...] qDay, # 90 tab(s), 3 Refill(s), Pharmacy: [facility], 168, cm, 01/02/24 7:54:00 EST, [...] qDay, # 10 cap(s), 0 Refill(s), Pharmacy: [facility] #[id number], Rash, 165.1, cm, 10/15/22 10:16:00 EDT, Height, [...] as provided by your GI provider at [facility]., # 1 EA, 0 Refill(s), Pharmacy: [facility] #[id number], 167.8, cm, 07/28/22 7:28:00 EDT, Height Start [...] BID, # 20 tab(s), 0 Refill(s), Pharmacy: [facility] #[id number], Rash, 165.1, cm, 10/15/22 10:16:00 EDT, Height, kg, 10/15/22 10:16:00 EDT, Dosing Weight Start Date: 10/15/22 Stop Date: 10/25/22 Status: Ordered omeprazole 40 mg delayed release oral capsule (1 source) Proton Pump Inhibitor Start: 11-16-2023 End: 11-30-2023 omeprazole 40 mg oral delayed release capsule Dose : 40 mg = 1 cap(s), Oral, qDay, # 14 cap(s), 0 Refill(s), Pharmacy: [facility], 167, cm, 11/16/23 10:39:00 EDT, [...] Results Test Name Value Interpretation Reference Range [facility] 05-07-2024 U Ratio Alb/Cre 6 mg/G Normal 0-30 [facility] Comment on above: Result Comment: The units for the MALB test were changed, but the MALB ratio calculation was not initially adjusted to reflex this. The corrected ratio has now been recalculated using the appropriate conversion factor. BP Performed By: #### M ALBR ####[place] [address] .GFRon 04-18-2024 Estimated Glomerular Filtration Rate 83 ml/min/1.73sqm Normal [facility] Comment on above: Result Comment: Stages [...] #### L IPID, CMP, GFR ####[address] [place], [place] [address] CMPon 04-18-2024 Albumin Level 3.7 G/dL Normal 3.5-5.0 [facility] Comment on above: Performed By: #### L IPID, CMP, GFR ####[address] [place], [place] [address] Albumin/Globulin [Mass ratio] 1.2 {ratio} Normal 1.1-2.5 [facility] Comment on above: Performed By: #### L IPID, CMP, GFR ####[address] [place], [place] [address] ALP [Catalytic activity/Vol] 78 U/L Normal 40-135 [facility] Comment on above: Performed By: #### L IPID, CMP, GFR ####[address] [place], [place] [address] ALT [Catalytic activity/Vol] 32 U/L Normal 16-63 [facility] Comment on above: Performed By: #### L IPID, CMP, GFR ####[address] [place], [place] [address] AST [Catalytic activity/Vol] 24 U/L Normal 10-40 [facility] Comment on above: Performed By: #### L IPID, CMP, GFR ####[address] [place], [place] [address] Bili Total 1.4 mg/dL High 0.2-1.0 [facility] Comment on above: Result Comment: Use of this assay is not recommended for patients undergoing treatment with eltrombopag due to the potential for falsely elevated results. Performed By: #### L IPID, CMP, GFR ####[address] [place], [place] [address] BUN/Creatinine Ratio 12 ratio Normal 7-27 [facility] Comment on above: Performed By: #### L IPID, CMP, GFR ####[address] [place], [place] [address] Calcium [Mass/Vol] 9.4 mg/dL Normal 8.4-10.2 [facility] Comment on above: Performed By: #### L IPID, CMP, GFR ####[address] [place], [place] [address] Chloride [Moles/Vol] 103 mmol/L Normal 98-107 [facility] Comment on above: Performed By: #### L IPID, CMP, GFR ####[address] [place], [place] [address] CO2 [Moles/Vol] 28 mmol/L Normal 22-29 [facility] Comment on above: Performed By: #### L IPID, CMP, GFR ####[address] [place], [place] [address] Creatinine [Mass/Vol] 1.04 mg/dL Normal 0.70-1.30 [facility] Comment on above: Result Comment: Test ing performed on Siemens Dimension EXL analyzer using a modified kinetic Andria technique. Performed By: #### L IPID, CMP, GFR ####[address] [place], [place] [address] Electrolyte Balance 7.0 mEq/L Normal 4.0-15.0 [facility] Comment on above: Performed By: #### L IPID, CMP, GFR ####[address] [place], [place] [address] Globulin 3.1 G/dL Normal 1.5-3.8 [facility] Comment on above: Performed By: #### L IPID, CMP, GFR ####[facility] [place], [place] [address] Glucose [Mass/Vol] 97 mg/dL Normal 70-105 [facility] Comment on above: Performed By: #### L IPID, CMP, GFR ####[address] [place], [place] [address] Potassium [Moles/Vol] 3.7 mmol/L Normal 3.5-5.1 [facility] Comment on above: Performed By: #### L IPID, CMP, GFR ####[place] [address] [place], [place] [address] Sodium [Moles/Vol] 138 mmol/L Normal 136-145 [facility] Comment on above: Performed By: #### L IPID, CMP, GFR ####[place] [place], [place] [address] Total Protein 6.8 G/dL Normal 6.4-8.2 [facility] Comment on above: Performed By: #### L IPID, CMP, GFR ####[place] [address] [place], [place] [address] Urea nitrogen [Mass/Vol] 12 mg/dL Normal 7-18 [facility] Comment on above: Performed By: #### L IPID, CMP, GFR ####[facility] [place], [place] [address] LABORATORYOrdered By: Renetta Ribeiro on 04-18-2024 Albumin DL <= 20 mg/L (U) [Mass/Vol] 7.3 mg/L Invalid Interpretation Code AO ADM SS Albumin/Creatinine DL <= 20 mg/L (U) [Mass ratio] 0 mcg/mg Normal 0 - 30 mcg/mg AO Chemistry S Creatinine (U) [Mass/Vol] 128.9 mg/dL Invalid Interpretation Code AO ADM SS LABORATORYOrdered By: [employer] on 04-18-2024 Albumin BCP dye [Mass/Vol] 3.7 [...] 04-18-2024 Cholesterol [Mass/Vol] 128 mg/dL Normal 0-200 [facility] Comment on above: Result Comment: Chol esterol Reference Interval: Less than 200 Desirable 200-239 Borderline high risk 240 and above High risk Performed By: #### L IPID, CMP, GFR ####[address] [place], [place] [address] Cholesterol in HDL [Mass/Vol] 73 mg/dL High 40-60 [facility] Comment on above: Performed By: #### L IPID, CMP, GFR ####[address] [place], [place] [address] Cholesterol in LDL [Mass/Vol] 46 mg/dL Normal 0-130 [facility] Comment on above: Performed By: #### L IPID, CMP, GFR ####[address] [place], [place] [address] Triglyceride [Mass/Vol] 43 mg/dL Normal 0-150 [facility] Comment on above: Result Comment: Trig lyceride Reference Interval: Less than 150 Normal 150-199 Borderline high risk 200-499 High risk 500 or higher Very high risk Performed By: #### L IPID, CMP, GFR ####[address] [place], [place] [address] MALBRon 04-18-2024 U Creatinine 128.9 mg/dL Normal [facility] Comment on above: Performed By: #### M ALBR ####[address] [place], [place] [address] U Microalb 7.3 mg/L Normal [facility] Comment on above: Performed By: #### M ALBR ####[address] [place], [place] [address] Knee 4 or More Viewson 03-15 Knee 4 or More Views [facility] [address] [place] [address] Knee 4 or More Views MR#: [id number] Acct: [id number] Name: TEODORA LEO Rep #: [id number] : 1965 M 58 From: Brandan Lutz MD PCP: Dr. Nazanin Mendoza MD Status: DEP AMB Study: Knee 4 or More Views Date of Exam: 03/15/24 Exam# [id number] Ordering Dr: Simón [place] [id number] STUDY: X-RAY - LEFT KNEE REASON FOR [...] 12:19 EST Reading Location ID and State: [facility] / [place] , Service support , CC: Dr. Simón Teran MD; Dr. Nazanin Mendoza MD Process Specialist: Signed Normal [facility] Orthopedic Visit Reporton Orthopedic Visit Report [facility] [address] [place] [address] [address] [place], [place] [address] OFFICE VISIT Date of Service: 03/15/24 MR#: [id number] Acct: [id number] Name: TEODORA LEO Rep #: [id number] : 1965 Provider: Dr. Simón holguin MD Age/Sex: 58/M Location: [facility] Status: Signed with Addenda ADDENDUM by Kathleen [...] Performing Provider: Simón Teran MD Performing Location: [facility] Administered by: Simón Teran MD on 03/15/24 09:13 Dose Route Admin Location Dispensed Lot Number Expiration Date NDC Man ufacturer 80 mg intra-articular BL knee 2 mL [id number] 06/21/25 7843-1011-92 [employer] [facility] Date cc: * Signed Intake Vital Signs 11/10/23 14:52 Height 5 ft 6 in Intake Visit Reasons: BL KNEES Chief Complaint: Left knee Installation Manager Required: No Accompanied by: Self Is patient [...] Yes ROM-Flexion (more content not included)... Normal [facility] .GFRon 12-27-2023 GFR 101 ml/min/1.73sqm Normal [facility] Comment on above: Result Comment: GFR [...] V IDH, LIPID, CMP, GFR, PSA ####[address] [place], [place] [address] GFR Non- 83 ml/min/1.73sqm Normal [facility] Comment on above: Result Comment: GFR [...] IDH, LIPID, CMP, GFR, PSA ####[address] [place], [place] [address] CMPon 12-27-2023 Albumin Level 3.9 G/dL Normal 3.5-5.0 [facility] Comment on above: Performed By: #### V IDH, LIPID, CMP, GFR, PSA ####[address] [place], [place] [address] Albumin/Globulin [Mass ratio] 1.4 {ratio} Normal 1.1-2.5 [facility] Comment on above: Performed By: #### V IDH, LIPID, CMP, GFR, PSA ####[address] [place], [place] [address] ALP [Catalytic activity/Vol] 78 U/L Normal 40-135 [facility] Comment on above: Performed By: #### V IDH, LIPID, CMP, GFR, PSA ####[address] [place], [place] [address] ALT [Catalytic activity/Vol] 36 U/L Normal 16-63 [facility] Comment on above: Performed By: #### V IDH, LIPID, CMP, GFR, PSA ####[address] [place], [place] [address] AST [Catalytic activity/Vol] 19 U/L Normal 10-40 [facility] Comment on above: Performed By: #### V IDH, LIPID, CMP, GFR, PSA ####[address] [place], [place] [address] Bili Total 1.1 mg/dL High 0.2-1.0 [facility] Comment on above: Result Comment: Use of this assay is not recommended for patients undergoing treatment with eltrombopag due to the potential for falsely elevated results. Performed By: #### V IDH, LIPID, CMP, GFR, PSA ####[address] [place], [place] [address] BUN/Creatinine Ratio 17 ratio Normal 7-27 [facility] Comment on above: Performed By: #### V IDH, LIPID, CMP, GFR, PSA ####[address] [place], [place] [address] Calcium [Mass/Vol] 9.4 mg/dL Normal 8.4-10.2 [facility] Comment on above: Performed By: #### V IDH, LIPID, CMP, GFR, PSA ####[address] [place], [place] [address] Chloride [Moles/Vol] 104 mmol/L Normal 98-107 [facility] Comment on above: Performed By: #### V IDH, LIPID, CMP, GFR, PSA ####[address] [place], [place] [address] CO2 [Moles/Vol] 31 mmol/L High 22-29 [facility] Comment on above: Performed By: #### V IDH, LIPID, CMP, GFR, PSA ####[address] [place], [place] [address] Creatinine [Mass/Vol] 0.93 mg/dL Normal 0.70-1.30 [facility] Comment on above: Result Comment: Test ing performed on Siemens Dimension EXL analyzer using a modified kinetic Andria technique. Performed By: #### V IDH, LIPID, CMP, GFR, PSA ####[address] [place], [place] [address] Electrolyte Balance 7.0 mEq/L Normal 4.0-15.0 [facility] Comment on above: Performed By: #### V IDH, LIPID, CMP, GFR, PSA ####[address] [place], [place] [address] Globulin 2.8 G/dL Normal [facility] Comment on above: Performed By: #### V IDH, LIPID, CMP, GFR, PSA ####[address] [place], [place] [address] Glucose [Mass/Vol] 99 mg/dL Normal 70-105 [facility] Comment on above: Performed By: #### V IDH, LIPID, CMP, GFR, PSA ####[address] [place], [place] [address] Potassium [Moles/Vol] 4.4 mmol/L Normal 3.5-5.1 [facility] Comment on above: Performed By: #### V IDH, LIPID, CMP, GFR, PSA ####[address] [place], [place] [address] Sodium [Moles/Vol] 142 mmol/L Normal 136-145 [facility] Comment on above: Performed By: #### V IDH, LIPID, CMP, GFR, PSA ####[address] [place], [place] [address] Total Protein 6.7 G/dL Normal 6.4-8.2 [facility] Comment on above: Performed By: #### V IDH, LIPID, CMP, GFR, PSA ####[address] [place], [place] [address] Urea nitrogen [Mass/Vol] 16 mg/dL Normal 7-18 [facility] Comment on above: Performed By: #### V IDH, LIPID, CMP, GFR, PSA ####[address] [place], [place] [address] LABORATORYOrdered By: SYSTEM SYSTEM on 12-27-2023 25-hydroxyvitamin [...] 12-27-2023 Cholesterol [Mass/Vol] 191 mg/dL Normal 0-200 [facility] Comment on above: Result Comment: Chol esterol Reference Interval: Less than 200 Desirable 200-239 Borderline high risk 240 and above High risk Performed By: #### V IDH, LIPID, CMP, GFR, PSA ####[address] [place], [place] [address] Cholesterol in HDL [Mass/Vol] 64 mg/dL High 40-60 [facility] Comment on above: Performed By: #### V IDH, LIPID, CMP, GFR, PSA ####[address] [place], [place] [address] Cholesterol in LDL [Mass/Vol] 111 mg/dL Normal 0-130 [facility] Comment on above: Performed By: #### V IDH, LIPID, CMP, GFR, PSA ####[address] [place], [place] [address] Triglyceride [Mass/Vol] 79 mg/dL Normal 0-150 [facility] Comment on above: Result Comment: Trig lyceride Reference Interval: Less than 150 Normal 150-199 Borderline high risk 200-499 High risk 500 or higher Very high risk Performed By: #### V IDH, LIPID, CMP, GFR, PSA ####[address] [place], [place] [address] PSAon 12-27-2023 Prostate Specific Antigen 0.78 ng/mL Normal 0.00-4.00 [facility] Comment on above: Performed By: #### V IDH, LIPID, CMP, GFR, PSA ####[address] [place], [place] [address] VIDHon 12-27-2023 Vit. D 25-Hydroxy 62.0 ng/mL Normal [facility] Comment on above: Result Comment: Inte rpretive Values Based on Total 25([place]) Vitamin D: Deficient <20 ng/mL Insufficient 20 - <30 ng/mL Sufficient 30-100 ng/mL Performed By: #### V IDH, LIPID, CMP, GFR, PSA ####[address] [address] 12 Lead EKGon 11-10-2023 12 Lead EKG [facility]ovascular Services [address] [place] [address] 12 Lead EKG 11/09/23 2123 MR#: [id number] Acct: [id number] Name: TEODORA LEO Rep #: [id number] : 1965 58 From: Bowen Aguilera MD Attending Dr: Dr. Radames Maurer DO Status : DIS IN Ordering Dr: Alejandra Lutz DO Date: 11/10/23 Location: [facility] Sex: M C Admitted: 11/09/23 Test Reason [...] DATA IS UNCONFIRMED Confirmed by Bowen Aguilera ([id number]), editor & co founder NAREN LOCKE ([id number]) on 11/14/2023 10:51:18 AM Referred By: Confirmed By:Bowen Aguilera 11/14/23 1051 Date Bowen Aguilera MD CC: Dr. Radames Maurer DO; Dr. Alejandra Lutz DO; Dr. Nazanin Mendoza MD Signed Normal [facility] CBC-Complete Blood Cnt No Di ffon 11-10-2023 Erythrocyte distribution width (RBC) [Ratio] 12.3 % Normal 11.6-14.6 [facility] Comment on above: Performed By: #### L 100.0500 ####[facility] [address] [place], [address] Hematocrit (Bld) [Volume fraction] 44.1 % Normal 40-54 [facility] Comment on above: Performed By: #### L 100.0500 ####[facility] [address] [place], [address] Hemoglobin (Bld) [Mass/Vol] 15.0 g/dL Normal 13.0-16.5 [facility] Comment on above: Performed By: #### L 100.0500 ####[facility] [address] [place], [address] MCH (RBC) [Entitic mass] 30.1 pg Normal 27.0-32.0 [facility] Comment on above: Performed By: #### L 100.0500 ####[facility] [address] [place], [address] MCHC (RBC) [Mass/Vol] 34.0 g/dL Normal 32-36 [facility] Comment on above: Performed By: #### L 100.0500 ####[facility] [address] [place], [address] MCV (RBC) [Entitic vol] 88.6 fL Normal 80-94 [facility] Comment on above: Performed By: #### L 100.0500 ####[facility] [address] [place], [address] Platelet mean volume (Bld) [Entitic vol] 8.7 fL Normal 6.2-12.0 [facility] Comment on above: Performed By: #### L 100.0500 ####[facility] [address] [place], [address] Platelets (Bld) [#/Vol] 336 10*3/uL Normal 150-450 [facility] Comment on above: Performed By: #### L 100.0500 ####[facility] [address] [place], [address] RBC (Bld) [#/Vol] 4.98 10*6/uL Normal 4.6-6.2 [facility] Comment on above: Performed By: #### L 100.0500 ####[facility] [address] [place], [address] RDW SD 39.6 fl Normal 35.1-43.9 [facility] Comment on above: Performed By: #### L 100.0500 ####[facility] [address] [place], [address] WBC (Bld) [#/Vol] 5.1 10*3/uL Normal 4.4-11.0 [facility] Comment on above: Performed By: #### L 100.0500 ####[facility] [address] [place], [address] Cardiac Cath Diagnosticon Cardiac Cath Diagnostic [facility] Imaging Services [address] [place] [address] Cardiac Cath Diagnostic MR#: [id number] Acct: [id number] Name: TEODORA LEO Rep #: [id number] : 1965 58 From: Omar Medina MD PCP: Dr. Nazanin Mendoza MD Status:ADM IN Patient Name: TEODORA LEO Study Date: 11/10/2023 Performing: Omar Medina MD Ht: 66 inches 167.64 cm : 1965 Wt: 163.8 lbs 74.3 kg Age: 58 Gender: male BSA: 1.84 PROCEDURE(S) PERFORMED [id number]-([id number])[facility] CLINICAL PROFILE AND INDICATIONS Indications: Suspected CAD, [...] multiple views using a 5 Fr. 4.0 Martin catheter. LV to AO pullback pressures were then recorded. Right Coronary Artery selective angiography was then performed in multiple views using a 5 Fr. 4.0 Martin catheter.The arterial sheath was pulled and a [...] MD 11/10/23 1242 Date [facility] Signature: Date (if indicated) CC: Dr. Radames Maurer DO; Dr. Omar Medina MD; Dr. Nazanin Mendoza MD Date Dictated: 11/10/23 1212 Date Transcribed: 11/10/23 1241 Process Specialist: AR Signed Normal [facility] Comprehensive Metabolic Prof ilon 11-10-2023 Albumin [Mass/Vol] 3.4 g/dL Normal 3.2-5.0 [facility] Comment on above: Performed By: #### L 500.4050, L500.4100, L501.9985 ####[facility] [address] [place], [address] Albumin/Globulin [Mass ratio] 1.1 {ratio} Normal 0.9-2.4 [facility] Comment on above: Performed By: #### L 500.4050, L500.4100, L501.9985 ####[facility] [address] [place], [address] ALK P 65 U/L Normal 45-117 [facility] Comment on above: Performed By: #### L 500.4050, L500.4100, L501.9985 ####[facility] [address] [place], [address] ALT [Catalytic activity/Vol] 28 U/L Normal 16-61 [facility] Comment on above: Performed By: #### L 500.4050, L500.4100, L501.9985 ####[facility] [address] [place], [address] AST [Catalytic activity/Vol] 21 U/L Normal 15-37 [facility] Comment on above: Performed By: #### L 500.4050, L500.4100, L501.9985 ####[facility] [address] [place], [address] Bilirubin [Mass/Vol] 1.30 mg/dL High 0.20-1.00 [facility] Comment on above: Result Comment: For patients on eltrombopag therapy, use of Dimension [place] TBIL is not recommended. Performed By: #### L 500.4050, L500.4100, L501.9985 ####[facility] [address] [place], [address] BUN/CRE 13.8 RATIO Normal 10-20 [facility] Comment on above: Performed By: #### L 500.4050, L500.4100, L501.9985 ####[facility] [address] [place], [address] CA,Total 9.2 mg/dL Normal 8.5-10.1 [facility] Comment on above: Performed By: #### L 500.4050, L500.4100, L501.9985 ####[facility] [address] [place], [address] Chloride [Moles/Vol] 109 mmol/L High 98-107 [facility] Comment on above: Performed By: #### L 500.4050, L500.4100, L501.9985 ####[facility] [address] [place], [address] CO2 [Moles/Vol] 24.0 mmol/L Normal 21.0-32.0 [facility] Comment on above: Performed By: #### L 500.4050, L500.4100, L501.9985 ####[facility] [address] [place], [address] Creatinine [Mass/Vol] 0.73 mg/dL Normal 0.70-1.30 [facility] Comment on above: Result Comment: The validity of the calculated GFR GFRAA in patients over 70 years has not been determined. Clinical correlation is essential. Performed By: #### L 500.4050, L500.4100, L501.9985 ####[facility] [address] [place], [address] ECRCL 99.54 ml/min Normal [facility] Comment on above: Performed By: #### L 500.4050, L500.4100, L501.9985 ####[facility] [address] [place], [address] EST GFR - AA 143 mL/min Normal >60 [facility] Comment on above: Result Comment: Afri can [place] GFR Calc Performed By: #### L 500.4050, L500.4100, L501.9985 ####[facility] [address] [place], [address] GAP 8 Normal 5-15 [facility] Comment on above: Performed By: #### L 500.4050, L500.4100, L501.9985 ####[facility] [address] [place], [address] GFR/1.73 sq M.predicted among non-blacks MDRD (S/P/Bld) [Vol rate/Area] 118 mL/min/{1.73_m2} Normal >60 [facility] Comment on above: Result Comment: Non- GFR Calc Performed By: #### L 500.4050, L500.4100, L501.9985 ####[facility] [address] [place], [address] Globulin (S) [Mass/Vol] 3.1 g/dL Normal 2.2-4.2 [facility] Comment on above: Performed By: #### L 500.4050, L500.4100, L501.9985 ####[facility] [address] [place], [address] Glucose [Mass/Vol] 95 mg/dL Normal 74-106 [facility] Comment on above: Performed By: #### L 500.4050, L500.4100, L501.9985 ####[facility] [address] [place], [address] Potassium [Moles/Vol] 4.0 mmol/L Normal 3.5-5.1 [facility] Comment on above: Performed By: #### L 500.4050, L500.4100, L501.9985 ####[facility] [address] [place], [address] Sodium [Moles/Vol] 141 mmol/L Normal 136-145 [facility] Comment on above: Performed By: #### L 500.4050, L500.4100, L501.9985 ####[facility] [address] [place], [address] T PROT 6.5 g/dL Normal 6.4-8.2 [facility] Comment on above: Performed By: #### L 500.4050, L500.4100, L501.9985 ####[facility] [address] [place], [address] Urea nitrogen [Mass/Vol] 10 mg/dL Normal 7-18 [facility] Comment on above: Performed By: #### L 500.4050, L500.4100, L501.9985 ####[facility] [address] [place], [address] Consultation - Cardiologyon 11-10-2023 Consultation - Cardiology [facility] Medical Records Department [address] [place] [address] Consultation - Cardiology 11/10/23 1155 MR#: [id number] Acct: [id number] Name: TEODORA LEO Rep #: [id number] : 1965 58 From: Omar Medina MD PCP: Dr. Nazanin Mendoza MD Status:ADM IN Location: [place] [address] Assessment Plan Assessment/Plan (1) Unstable angina: PLAN: [...] % (Auto) 67.1, Lymph % (Auto) 24.2, [place]born % (Auto) 7.2, Eos % (Auto) 0.5, [...] AST 2 (more content not included)... Normal [facility] Discharge Instructionon 10-22 Discharge Instruction [facility] Medical Records Department [address] [place] [address] Instructions for Home/Discharge Instructions 11/10/23 1316 MR#: [id number] Acct: [id number] Name: TEODORA LEO Rep #: [id number] : 1965 58 From: Radames Maurer DO [...] and results will be sent to the chef teacher to review. Discharge Orders/Prescriptions Prescriptions: New atorvastatin 10 mg Tablet 10 mg PO QHS 90 Days Qty: 90 0RF amlodipine 5 mg Tablet 5 mg PO DAILY 30 Days Qty: 30 2RF aspirin 81 mg Tablet,Delayed Release (Dr/Ec) 81 mg PO BREAKFAST 90 Days Qty: 90 0RF Other Ambulatory Orders: 14 Day Event Recorder Preventi (Urgent) Timeframe: 2 Weeks Facility: [facility] - Location: Cardiovascular Services Ordered By: Dr. Radames Maurer Referrals / Follow Up: Nazanin Mendoza MD [Primary Care Provider] - Disposition Disposition (needs filled in before D/C Order can be placed): Home, Self Care 11/10/23 1334 Radames Maurer DO CC: Dr. Omar Medina MD; Dr. Alejandra Lutz DO; Dr. Nazanin Mendoza MD Signed Normal [facility] Hemoglobin A1con 11-10-2023 HbA1c (Bld) [Mass fraction] 5.3 % Normal 3.8-5.6 [facility] Comment on above: Result Comment: Norm al < 5.7 % Prediabetic 5.7 - 6.4 % Diabetic >or= 6.5 % Please note range changes. Performed By: #### L 500.4050, L500.4100, L501.9985 ####[facility] [address] [place], [address] Lipid Profileon 11-10-2023 Cholesterol [Mass/Vol] 158 mg/dL Normal 200 [facility] Comment on above: Result Comment: <200 mg/dL Desirable 200-240 mg/dL Borderline >240 mg/dL High Risk Performed By: #### L 500.4050, L500.4100, L501.9985 ####[facility] [address] [place], [address] Cholesterol in HDL [Mass/Vol] 57 mg/dL Normal [facility] Comment on above: Result Comment: The drugs N-Acetylcysteine and Metamizole may falsely depress this assay. Reference Range HDL <40 mg/dL Low HDL Cholesterol HDL >or= 60 mg/dL High HDL Cholesterol Performed By: #### L 500.4050, L500.4100, L501.9985 ####[facility] [address] [place], [address] Cholesterol in LDL [Mass/Vol] 87 mg/dL Normal 0-130 [facility] Comment on above: Performed By: #### L 500.4050, L500.4100, L501.9985 ####[facility] [address] [place], [address] Cholesterol in VLDL [Mass/Vol] 14 mg/dL Normal 5-40 [facility] Comment on above: Performed By: #### L 500.4050, L500.4100, L501.9985 ####[facility] [address] [place], [address] Triglyceride [Mass/Vol] 69 mg/dL Normal [facility] Comment on above: Result Comment: The drugs N-Acetylcysteine and Metamizole may falsely depress this assay. Serum Triglycerides Reference Interval Normal <150 mg/dL Borderline high 150 - 199 mg/dL High 200 - 499 mg/dL Very High > or = 500 mg/dL Performed By: #### L 500.4050, L500.4100, L501.9985 ####[facility] [address] [facility] [place], [address] 12 Lead EKGon 11-09-2023 12 Lead EKG [facility] Cardiovascular Services [address] [place] [address] 12 Lead EKG 11/10/23 0526 MR#: [id number] Acct: [id number] Name: TEODORA LEO Rep #: [id number] : 1965 58 From: Bowen Aguilera MD Attending Dr: Dr. Radames Maurer, DO Status : DIS IN Ordering Dr: Alejandra Lutz DO Date: 11/09/23 Location: [facility] Sex: M C Admitted: 11/09/23 Test Reason [...] DATA IS UNCONFIRMED Confirmed by Bowen Aguilera ([id number]), editor & co founder NAREN LOCKE ([id number]) on 11/14/2023 10:50:47 AM Referred By: Confirmed By:Bowen Aguilera 11/14/23 1050 Date Bowen Aguilera MD CC: Dr. Radames Maurer DO; Dr. Alejandra Lutz DO; Dr. Nazanin Mendoza MD Signed [facility] 12 Lead EKG [facility] Cardiovascular Services [address] [place] [address] 12 Lead EKG 11/09/23 1242 MR#: [id number] Acct: [id number] Name: TEODORA LEO Rep #: [id number] : 1965 58 From: Bowen Aguilera MD Attending Dr: Dr. Radames Maurer DO Status : DIS IN Ordering Dr: Wing Flanagan MD Date: 11/09/23 Location: [facility] Sex: M C Admitted: 11/09/23 Test Reason : CP Blood Pressure : / mmHG Vent. Rate : 095 BPM Atrial Rate : 095 BPM P-R Int : 172 ms QRS Dur : 096 ms QT Int : 366 ms P-R-T Axes : 027 045 025 degrees QTc Int : 459 ms Normal sinus rhythm Normal ECG Confirmed by Bowen Aguilera ([id number]), editor & co founder NAREN LOCKE ([id number]) on 11/14/2023 10:40:40 AM Referred By: UG/TB Confirmed By:Bowen Aguilera 11/14/23 1040 Date Bowen Aguilera MD CC: Dr. Radames Maurer DO; Dr. Nazanin Mendoza MD; Dr. Wing Flanagan MD Signed [facility] Basic Metabolic Profile (BMP )on 11-09-2023 BUN/CRE 14.1 RATIO Normal - [facility] Comment on above: Order Comment: 1 Y Performed By: #### L 501.5425, L500.2500, L100.0100 #### [facility] Laboratory [address] [place], [address] CA,Total 10.2 mg/dL High 8.5-10.1 [facility] Comment on above: Order Comment: 1 Y Performed By: #### L 501.5425, L500.2500, L100.0100 #### [facility] Laboratory [address] [place], [address] Chloride [Moles/Vol] 104 mmol/L Normal 98-107 [facility] Comment on above: Order Comment: 1 Y Performed By: #### L 501.5425, L500.2500, L100.0100 #### [facility] Laboratory [address] [place], [address] CO2 [Moles/Vol] 20.0 mmol/L Low 21.0-32.0 [facility] Comment on above: Order Comment: 1 Y Performed By: #### L 501.5425, L500.2500, L100.0100 #### [facility] Laboratory [address] [place], [address] Creatinine [Mass/Vol] 0.85 mg/dL Normal 0.70-1.30 [facility] Comment on above: Order Comment: 1 Y Result Comment: The validity of the calculated GFR GFRAA in patients over 70 years has not been determined. Clinical correlation is essential. Performed By: #### L 501.5425, L500.2500, L100.0100 #### [facility] Laboratory [address] [place], [address] EST GFR - AA 119 mL/min Normal >60 [facility] Comment on above: Order Comment: 1 Y Result Comment: Afri can [place] GFR Calc Performed By: #### L 501.5425, L500.2500, L100.0100 #### [facility] Laboratory [address] [place], [address] GAP 10 Normal 5-15 [facility] Comment on above: Order Comment: 1 Y Performed By: #### L 501.5425, L500.2500, L100.0100 #### [facility] Laboratory [address] [place], [address] GFR/1.73 sq M.predicted among non-blacks MDRD (S/P/Bld) [Vol rate/Area] 98 mL/min/{1.73_m2} Normal >60 [facility] Comment on above: Order Comment: 1 Y Result Comment: Non- GFR Calc Performed By: #### L 501.5425, L500.2500, L100.0100 #### [facility] Laboratory [address] [place], [address] Glucose [Mass/Vol] 118 mg/dL High 74-106 [facility] Comment on above: Order Comment: 1 Y Result Comment: Fast ing Glucose result from 100 to 125 mg/dL suggests IMPAIRED HOMEOSTASIS per A.D.A. criteria. Performed By: #### L 501.5425, L500.2500, L100.0100 #### [facility] Laboratory [address] [place], [address] Potassium [Moles/Vol] 3.5 mmol/L Normal 3.5-5.1 [facility] Comment on above: Order Comment: 1 Y Performed By: #### L 501.5425, L500.2500, L100.0100 #### [facility] Laboratory [address] [place], [address] Sodium [Moles/Vol] 134 mmol/L Low 136-145 [facility] Comment on above: Order Comment: 1 Y Performed By: #### L 501.5425, L500.2500, L100.0100 #### [facility] Laboratory [address] [place], [address] Urea nitrogen [Mass/Vol] 12 mg/dL Normal 7-18 [facility] Comment on above: Order Comment: 1 Y Performed By: #### L 501.5425, L500.2500, L100.0100 #### [facility] Laboratory [address] [place], [address] CBC W/Diff, Automatedon 10-22 Absolute Lymph 2.01 X10 3/uL Normal 0.83-4.51 [facility] Comment on above: Performed By: #### L 501.5425, L500.2500, L100.0100 #### [facility] Laboratory [address] [place], [address] Absolute Neut 5.6 X10 3/uL Normal 2.0-7.7 [facility] Comment on above: Performed By: #### L 501.5425, L500.2500, L100.0100 #### [facility] Laboratory [address] [place], [address] Basophils/100 WBC (Bld) 0.5 % Normal 0-1 [facility] Comment on above: Performed By: #### L 501.5425, L500.2500, L100.0100 #### [facility] Laboratory [address] [place], [address] Eosinophils/100 WBC (Bld) 0.5 % Normal 0-5 [facility] Comment on above: Performed By: #### L 501.5425, L500.2500, L100.0100 #### [facility] Laboratory [address] [place], [address] Erythrocyte distribution width (RBC) [Ratio] 11.9 % Normal 11.6-14.6 [facility] Comment on above: Performed By: #### L 501.5425, L500.2500, L100.0100 #### [facility] Laboratory [address] [place], [address] Hematocrit (Bld) [Volume fraction] 45.4 % Normal 40-54 [facility] Comment on above: Performed By: #### L 501.5425, L500.2500, L100.0100 #### [facility] Laboratory [address] [place], [address] Hemoglobin (Bld) [Mass/Vol] 16.1 g/dL Normal 13.0-16.5 [facility] Comment on above: Performed By: #### L 501.5425, L500.2500, L100.0100 #### [facility] Laboratory [address] [place], [address] IG% 0.500 Normal 0.0-0.9 [facility] Comment on above: Result Comment: IG% - Immature Granulocytes (promyelocytes, myelocytes and metamyelocytes) > 1% indicates that a LEFT SHIFT is Present. Performed By: #### L 501.5425, L500.2500, L100.0100 #### [facility] Laboratory [address] [place], [address] Lymphocytes/100 WBC (Bld) 24.2 % Normal 19-41 [facility] Comment on above: Performed By: #### L 501.5425, L500.2500, L100.0100 #### [facility] Laboratory [address] [place], [address] MCH (RBC) [Entitic mass] 30.6 pg Normal 27.0-32.0 [facility] Comment on above: Performed By: #### L 501.5425, L500.2500, L100.0100 #### [facility] Laboratory [address] [place], [address] MCHC (RBC) [Mass/Vol] 35.5 g/dL Normal 32-36 [facility] Comment on above: Performed By: #### L 501.5425, L500.2500, L100.0100 #### [facility] Laboratory [address] [place], [address] MCV (RBC) [Entitic vol] 86.1 fL Normal 80-94 [facility] Comment on above: Performed By: #### L 501.5425, L500.2500, L100.0100 #### [facility] Laboratory [address] [place], [address] Monocytes/100 WBC (Bld) 7.2 % Normal 0-10 [facility] Comment on above: Performed By: #### L 501.5425, L500.2500, L100.0100 #### [facility] Laboratory [address] [place], [address] Neutrophils/100 WBC (Bld) 67.1 % Normal 47-70 [facility] Comment on above: Performed By: #### L 501.5425, L500.2500, L100.0100 #### [facility] Laboratory [address] [place], [address] Nucleated RBC (Bld) [#/Vol] 0 10*3/uL Normal 0-5 [facility] Comment on above: Performed By: #### L 501.5425, L500.2500, L100.0100 #### [facility] Laboratory [address] [place], [address] Platelet mean volume (Bld) [Entitic vol] 8.4 fL Normal 6.2-12.0 [facility] Comment on above: Performed By: #### L 501.5425, L500.2500, L100.0100 #### [facility] Laboratory [address] [place], [address] Platelets (Bld) [#/Vol] 377 10*3/uL Normal 150-450 [facility] Comment on above: Performed By: #### L 501.5425, L500.2500, L100.0100 #### [facility] Laboratory [address] [place], [address] RBC (Bld) [#/Vol] 5.27 10*6/uL Normal 4.6-6.2 [facility] Comment on above: Performed By: #### L 501.5425, L500.2500, L100.0100 #### [facility] Laboratory [address] [place], [address] RDW SD 37.6 fl Normal 35.1-43.9 [facility] Comment on above: Performed By: #### L 501.5425, L500.2500, L100.0100 #### [facility] Laboratory [address] [place], [address] WBC (Bld) [#/Vol] 8.3 10*3/uL Normal 4.4-11.0 [facility] Comment on above: Performed By: #### L 501.5425, L500.2500, L100.0100 #### [facility] Laboratory [address] [place], [address] Chest 1 View (Portable)on Chest 1 View (Portable) [facility] Imaging Services [address] [place] [address] Chest 1 View (Portable) MR#: [id number] Acct: [id number] Name: TEODORA LEO Rep #: [id number] : 1965 M 58 From: Michele hawkins MD PCP: Dr. Nazanin Mendoza MD Status: [facility] ER Study: Chest 1 View (Portable) Date of Exam: 11/09/23 Exam# [id number] Ordering [place]: [place] [id number] STUDY: X-RAY CHEST REASON FOR EXAM: Male, [...] 13:42 EDT Reading Location ID and State: [facility] / [place] , Service support , CC: Dr. Nazanin Mendoza MD; Dr. Wing Flanagan MD Process Specialist: Signed Normal [facility] Emergency Department Summary on 11-09-2023 Emergency Department Summary [facility] Medical Records Department [address] [place] [address] Emergency Department Summary 11/09/23 MR#: [id number] Acct: [id number] Name: TEODORA LEO Rep #: [id number] : 1965 58 From: Wing Flanagan MD PCP: Dr. Nazanin Mendoza MD Status:DIS IN Location: [place] [address] HPI History of Present Illness Chief Complaint: [...] was shoveling sand. He was admitted to [facility]. He had a nuclear stress test that [...] and atraumat (more content not included)... Normal [facility] H AND P Exam - Hospitaliston 11-09-2023 H&P Exam - Hospitalist [facility] Medical Records Department [address] [place] [address] H P Exam - Hospitalist 11/09/23 1704 MR#: [id number] Acct: [id number] Name: TEODORA LEO Rep #: [id number] : 1965 58 From: Alejandra Lutz DO PCP: Dr. Nazanin Mendoza MD Status:ADM JANNIE Location: [place] [address] HPI - General General Date of Admission: 11/09/23 Date of Service: 11/09/23 Chief Complaint: Intermittent chest pain HPI Narrative TEODORA LEO, is a 58 M who presented to the emergency department at [facility] on 11/09/2023 due to intermittent diaphoresis, shortness [...] showed hiatal hernia and lungs were clear. [facility] Medical History Former smoker Obesity (BMI 30.0-34.9) [...] coffee g (more content not included)... Normal [facility] Hemoglobin A1con 11-09-2023 HbA1c (Bld) [Mass fraction] 5.4 % Normal 3.8-5.6 [facility] Comment on above: Result Comment: Norm al < 5.7 % Prediabetic 5.7 - 6.4 % Diabetic >or= 6.5 % Please note range changes. Performed By: #### L 501.9985 ####[facility] [address] [place], [address] L501.4020on 11-09-2023 TROPONIN-I HS 7 pg/mL Normal 3.0-78.0 [facility] Comment on above: Order Comment: 'TROP ' Serial specimen #1, #2 or #3: 3 Result Comment: Clement eagle Note: New Test Units and Gender Specific Reference Ranges. For more information see Policy Stat Procedure [place] High Sensitivity Troponin (TNIH) and attachments. Performed By: #### L 501.4020 #### [facility] Laboratory [address] [place], [address] TROPONIN-I HS 6 pg/mL Normal 3.0-78.0 [facility] Comment on above: Result Comment: Plecheryl eagle Note: New Test Units and Gender Specific Reference Ranges. For more information see Policy Stat Procedure [place] High Sensitivity Troponin (TNIH) and attachments. Performed By: #### L 501.4020 ####[facility] [address] [place], [address] L501.5425on 11-09-2023 TROPONIN-I HS 6 pg/mL Normal 3.0-78.0 [facility] Comment on above: Order Comment: 1 Y Result Comment: Clement eagle Note: New Test Units and Gender Specific Reference Ranges. For more information see Policy Stat Procedure [place] High Sensitivity Troponin (TNIH) and attachments. Performed By: #### L 501.5425, L500.2500, L100.0100 #### [facility] Laboratory [address] [place], [address] .Auto Diffon 11-01-2023 Basophil, Absolute 0.0 10 3/mcL Normal 0.0-0.2 [facility] Comment on above: Performed By: #### G FR, TROPHS, CBC, MG, BMP, ANEU, ADIFF #### [place] [address] [place], [place] [address] Basophils/100 WBC (Bld) 0.3 % Normal 0.0-2.5 [facility] Comment on above: Performed By: #### G FR, TROPHS, CBC, MG, BMP, ANEU, ADIFF #### [address] [address] Eosinophil, Absolute 0.2 10 3/mcL Normal 0.0-0.4 [facility] Comment on above: Performed By: #### G FR, TROPHS, CBC, MG, BMP, ANEU, ADIFF #### [address] [address] Eosinophils/100 WBC (Bld) 2.3 % Normal 0.0-7.0 [facility] Comment on above: Performed By: #### G FR, TROPHS, CBC, MG, BMP, ANEU, ADIFF #### [address] [address] Lymphocyte, Absolute 1.6 10 3/mcL Normal 0.8-3.9 [facility] Comment on above: Performed By: #### G FR, TROPHS, CBC, MG, BMP, ANEU, ADIFF #### [address] [address] Lymphocytes/100 WBC (Bld) 23.3 % Normal 10.0-50.0 [facility] Comment on above: Performed By: #### G FR, TROPHS, CBC, MG, BMP, ANEU, ADIFF #### [address] [address] Monocyte, Absolute 0.7 10 3/mcL Normal 0.2-1.0 [facility] Comment on above: Performed By: #### G FR, TROPHS, CBC, MG, BMP, ANEU, ADIFF #### [address] [address] Monocytes/100 WBC (Bld) 10.1 % Normal 1.7-13.0 [facility] Comment on above: Performed By: #### G FR, TROPHS, CBC, MG, BMP, ANEU, ADIFF #### [address] [address] Neutrophils/100 WBC (Bld) 64.0 % Normal 37.0-80.0 [facility] Comment on above: Performed By: #### G FR, TROPHS, CBC, MG, BMP, ANEU, ADIFF #### [address] [address] .GFRon 11-01-2023 GFR 100 ml/min/1.73sqm Normal [facility] Comment on above: Result Comment: GFR [...] TROPHS, CBC, MG, BMP, ANEU, ADIFF #### [address] [address] GFR Non- 82 ml/min/1.73sqm Normal [facility] Comment on above: Result Comment: GFR [...] TROPHS, CBC, MG, BMP, ANEU, ADIFF #### [address] [address] .NEUABSon 11-01-2023 Neutrophil, Absolute 4.4 10 3/mcL Normal 2.9-6.2 [facility] Comment on above: Performed By: #### G FR, TROPHS, CBC, MG, BMP, ANEU, ADIFF #### [address] [address] BMPon 11-01-2023 BUN/Creatinine Ratio 13 ratio Normal 7-27 [facility] Comment on above: Performed By: #### G FR, TROPHS, CBC, MG, BMP, ANEU, ADIFF #### [address] [address] Calcium [Mass/Vol] 9.3 mg/dL Normal 8.4-10.2 [facility] Comment on above: Performed By: #### G FR, TROPHS, CBC, MG, BMP, ANEU, ADIFF #### [address] [address] Chloride [Moles/Vol] 104 mmol/L Normal 98-107 [facility] Comment on above: Performed By: #### G FR, TROPHS, CBC, MG, BMP, ANEU, ADIFF #### [address] [address] CO2 [Moles/Vol] 31 mmol/L High 22-29 [facility] Comment on above: Performed By: #### G FR, TROPHS, CBC, MG, BMP, ANEU, ADIFF #### [address] [address] Creatinine [Mass/Vol] 0.94 mg/dL Normal 0.70-1.30 [facility] Comment on above: Result Comment: Test ing performed on Siemens Dimension EXL analyzer using a modified kinetic Andria technique. Performed By: #### G FR, TROPHS, CBC, MG, BMP, ANEU, ADIFF #### [address] [address] Electrolyte Balance 5.0 mEq/L Normal 4.0-15.0 [facility] Comment on above: Performed By: #### G FR, TROPHS, CBC, MG, BMP, ANEU, ADIFF #### [address] [address] Glucose [Mass/Vol] 92 mg/dL Normal 70-105 [facility] Comment on above: Performed By: #### G FR, TROPHS, CBC, MG, BMP, ANEU, ADIFF #### [address] [address] Potassium [Moles/Vol] 4.5 mmol/L Normal 3.5-5.1 [facility] Comment on above: Performed By: #### G FR, TROPHS, CBC, MG, BMP, ANEU, ADIFF #### [address] [address] Sodium [Moles/Vol] 140 mmol/L Normal 136-145 [facility] Comment on above: Performed By: #### G FR, TROPHS, CBC, MG, BMP, ANEU, ADIFF #### [address] [address] Urea nitrogen [Mass/Vol] 12 mg/dL Normal 7-18 [facility] Comment on above: Performed By: #### G FR, TROPHS, CBC, MG, BMP, ANEU, ADIFF #### [address] [address] CBCon 11-01-2023 Erythrocyte distribution width (RBC) [Ratio] 13.5 % Normal 11.5-14.5 [facility] Comment on above: Performed By: #### G FR, TROPHS, CBC, MG, BMP, ANEU, ADIFF #### [address] [address] Hematocrit (Bld) [Volume fraction] 45.6 % Normal 42.0-52.0 [facility] Comment on above: Performed By: #### G FR, TROPHS, CBC, MG, BMP, ANEU, ADIFF #### [address] [address] Hgb 15.7 G/dL Normal 14.0-18.0 [facility] Comment on above: Performed By: #### G FR, TROPHS, CBC, MG, BMP, ANEU, ADIFF #### [address] [address] MCH (RBC) [Entitic mass] 31.2 pg Normal 27.0-31.2 [facility] Comment on above: Performed By: #### G FR, TROPHS, CBC, MG, BMP, ANEU, ADIFF #### [address] [address] MCHC 34.5 G/dL Normal 31.8-35.4 [facility] Comment on above: Performed By: #### G FR, TROPHS, CBC, MG, BMP, ANEU, ADIFF #### [address] [address] MCV (RBC) [Entitic vol] 90.4 fL Normal 80.0-94.0 [facility] Comment on above: Performed By: #### G FR, TROPHS, CBC, MG, BMP, ANEU, ADIFF #### [address] [address] Platelet 322 10 3/mcL Normal 130-400 [facility] Comment on above: Performed By: #### G FR, TROPHS, CBC, MG, BMP, ANEU, ADIFF #### [address] [address] Platelet mean volume (Bld) [Entitic vol] 6.8 fL Low 7.4-10.4 [facility] Comment on above: Performed By: #### G FR, TROPHS, CBC, MG, BMP, ANEU, ADIFF #### [address] [address] RBC 5.04 10 6/mcL Normal 4.04-6.13 [facility] Comment on above: Performed By: #### G FR, TROPHS, CBC, MG, BMP, ANEU, ADIFF #### [address] [address] WBC 6.9 10 3/mcL Normal 4.6-10.8 [facility] Comment on above: Performed By: #### G FR, TROPHS, CBC, MG, BMP, ANEU, ADIFF #### [id number] [place], [place] [address] LABORATORYOrdered By: SYSTEM SYSTEM on 11-01-2023 Basophils [...] ng/L Male: 0-76 ng/L Testing performed on [employer] using a homogeneous sandwich chemiluminescent immunoassay based on GemShare technology. Urea nitrogen [Mass/Vol] 12 mg/dL Normal 7 - 18 mg/dL AO ADM SS Urea nitrogen/Creatinine [Mass ratio] 13 ratio Normal 7 - 27 ratio AO ADM SS WBC (Bld) [#/Vol] 6.9 103/mcL Normal 4.6 - 10.8 10^3/mcL AO Workflow SS MGon 11-01-2023 Magnesium [Mass/Vol] 1.5 mg/dL Low 1.8-2.4 [facility] Comment on above: Performed By: #### G FR, TROPHS, CBC, MG, BMP, ANEU, ADIFF #### [place] [address] NM MYOCARDIAL SPECT STRESS/R ESTon 11-01-2023 NM [...] 11/01/2023 4:28:18 PM Ordering Provider:Aleshia Bedolla Normal [facility] 11-01-2023 High Sensitivity Troponin I 7 ng/L Normal 0-76 [facility] Comment on above: Result Comment: High Sensitive Troponin I Reference Ranges: Female: 0-51 ng/L Male: 0-76 ng/L Testing performed on [employer] using a homogeneous sandwich chemiluminescent immunoassay based on GemShare technology. Performed By: #### G FR, TROPHS, CBC, MG, BMP, ANEU, ADIFF #### [id number] [place], [place] [address] .Auto Diffon 10-31-2023 Basophil, Absolute 0.0 10 3/mcL Normal 0.0-0.2 [facility] Comment on above: Performed By: #### B MP, PBNP, TROPHS, ANEU, ADIFF, CBC, MDW, GFR ####[facility] [place], [place] [address] Basophils/100 WBC (Bld) 0.5 % Normal 0.0-2.5 [facility] Comment on above: Performed By: #### B MP, PBNP, TROPHS, ANEU, ADIFF, CBC, MDW, GFR ####[facility] [place], [place] [address] Eosinophil, Absolute 0.0 10 3/mcL Normal 0.0-0.4 [facility] Comment on above: Performed By: #### B MP, PBNP, TROPHS, ANEU, ADIFF, CBC, MDW, GFR ####[place] [address] [place], [place] [address] Eosinophils/100 WBC (Bld) 0.6 % Normal 0.0-7.0 [facility] Comment on above: Performed By: #### B MP, PBNP, TROPHS, ANEU, ADIFF, CBC, MDW, GFR ####[place] [address] [place], [place] [address] Lymphocyte, Absolute 0.9 10 3/mcL Normal 0.8-3.9 [facility] Comment on above: Performed By: #### B MP, PBNP, TROPHS, ANEU, ADIFF, CBC, MDW, GFR ####[address] [address] Lymphocytes/100 WBC (Bld) 15.5 % Normal 10.0-50.0 [facility] Comment on above: Performed By: #### B MP, PBNP, TROPHS, ANEU, ADIFF, CBC, MDW, GFR ####[address] [address] Monocyte, Absolute 0.4 10 3/mcL Normal 0.2-1.0 [facility] Comment on above: Performed By: #### B MP, PBNP, TROPHS, ANEU, ADIFF, CBC, MDW, GFR ####[address] [address] Monocytes/100 WBC (Bld) 7.6 % Normal 1.7-13.0 [facility] Comment on above: Performed By: #### B MP, PBNP, TROPHS, ANEU, ADIFF, CBC, MDW, GFR ####[address] [address] Neutrophils/100 WBC (Bld) 75.8 % Normal 37.0-80.0 [facility] Comment on above: Performed By: #### B MP, PBNP, TROPHS, ANEU, ADIFF, CBC, MDW, GFR ####[address] [place], [place] [address] .GFRon 10-31-2023 GFR Non- 104 ml/min/1.73sqm Normal [facility] Comment on above: Result Comment: GFR [...] TROPHS, ANEU, ADIFF, CBC, W, GFR ####[address] [place], [place] [address] GFR 126 ml/min/1.73sqm Normal [facility] Comment on above: Result Comment: GFR [...] TROPHS, ANEU, ADIFF, CBC, MDW, GFR ####[address] [place], [place] [address] .MDWon 10-31-2023 Monocyte Distribution Width 18.26 Normal 0.00-20.00 [facility] Comment on above: Result Comment: For ED adult patients suspected of sepsis, MDW<=20.0 does not rule out sepsis or risk of sepsis Performed By: #### B MP, PBNP, TROPHS, ANEU, ADIFF, CBC, MDW, GFR ####[facility] [place], [place] [address] .NEUABSon 10-31-2023 Neutrophil, Absolute 4.3 10 3/mcL Normal 2.9-6.2 [facility] Comment on above: Performed By: #### B MP, PBNP, TROPHS, ANEU, ADIFF, CBC, MDW, GFR ####[facility] [place], [place] [address] BMPon 10-31-2023 BUN/Creatinine Ratio 18 ratio Normal 7-27 [facility] Comment on above: Performed By: #### B MP, PBNP, TROPHS, ANEU, ADIFF, CBC, MDW, GFR ####[address] [place], [place] [address] Calcium [Mass/Vol] 9.4 mg/dL Normal 8.4-10.2 [facility] Comment on above: Performed By: #### B MP, PBNP, TROPHS, ANEU, ADIFF, CBC, MDW, GFR ####[address] [place], [place] [address] Chloride [Moles/Vol] 104 mmol/L Normal 98-107 [facility] Comment on above: Performed By: #### B MP, PBNP, TROPHS, ANEU, ADIFF, CBC, MDW, GFR ####[facility] [place], [place] [address] CO2 [Moles/Vol] 28 mmol/L Normal 22-29 [facility] Comment on above: Performed By: #### B MP, PBNP, TROPHS, ANEU, ADIFF, CBC, MDW, GFR ####[facility] [place], [place] [address] Creatinine [Mass/Vol] 0.77 mg/dL Normal 0.70-1.30 [facility] Comment on above: Result Comment: Test ing performed on Siemens Dimension EXL analyzer using a modified kinetic Andria technique. Performed By: #### B MP, PBNP, TROPHS, ANEU, ADIFF, CBC, MDW, GFR ####[address] [place], [place] [address] Electrolyte Balance 7.0 mEq/L Normal 4.0-15.0 [facility] Comment on above: Performed By: #### B MP, PBNP, TROPHS, ANEU, ADIFF, CBC, MDW, GFR ####[address] [place], [place] [address] Glucose [Mass/Vol] 85 mg/dL Normal 70-105 [facility] Comment on above: Performed By: #### B MP, PBNP, TROPHS, ANEU, ADIFF, CBC, MDW, GFR ####[address] [place], [place] [address] Potassium [Moles/Vol] 4.0 mmol/L Normal 3.5-5.1 [facility] Comment on above: Performed By: #### B MP, PBNP, TROPHS, ANEU, ADIFF, CBC, MDW, GFR ####[address] [place], [place] [address] Sodium [Moles/Vol] 139 mmol/L Normal 136-145 [facility] Comment on above: Performed By: #### B MP, PBNP, TROPHS, ANEU, ADIFF, CBC, MDW, GFR ####[address] [place], [place] [address] Urea nitrogen [Mass/Vol] 14 mg/dL Normal 7-18 [facility] Comment on above: Performed By: #### B MP, PBNP, TROPHS, ANEU, ADIFF, CBC, MDW, GFR ####[address] [place], [place] [address] CBCon 10-31-2023 Erythrocyte distribution width (RBC) [Ratio] 13.2 % Normal 11.5-14.5 [facility] Comment on above: Performed By: #### B MP, PBNP, TROPHS, ANEU, ADIFF, CBC, MDW, GFR ####[address] [place], [place] [address] Hematocrit (Bld) [Volume fraction] 43.2 % Normal 42.0-52.0 [facility] Comment on above: Performed By: #### B MP, PBNP, TROPHS, ANEU, ADIFF, CBC, MDW, GFR ####[address] [place], [place] [address] Hgb 15.3 G/dL Normal 14.0-18.0 [facility] Comment on above: Performed By: #### B MP, PBNP, TROPHS, ANEU, ADIFF, CBC, MDW, GFR ####[address] [place], [place] [address] MCH (RBC) [Entitic mass] 31.8 pg High 27.0-31.2 [facility] Comment on above: Performed By: #### B MP, PBNP, TROPHS, ANEU, ADIFF, CBC, MDW, GFR ####[address] [place], [place] [address] MCHC 35.4 G/dL Normal 31.8-35.4 [facility] Comment on above: Performed By: #### B MP, PBNP, TROPHS, ANEU, ADIFF, CBC, MDW, GFR ####[address] [place], [place] [address] MCV (RBC) [Entitic vol] 89.8 fL Normal 80.0-94.0 [facility] Comment on above: Performed By: #### B MP, PBNP, TROPHS, ANEU, ADIFF, CBC, MDW, GFR ####[address] [place], [place] [address] Platelet 320 10 3/mcL Normal 130-400 [facility] Comment on above: Performed By: #### B MP, PBNP, TROPHS, ANEU, ADIFF, CBC, MDW, GFR ####[facility] [place], [place] [address] Platelet mean volume (Bld) [Entitic vol] 6.4 fL Low 7.4-10.4 [facility] Comment on above: Performed By: #### B MP, PBNP, TROPHS, ANEU, ADIFF, CBC, MDW, GFR ####[address] [place], [place] [address] RBC 4.81 10 6/mcL Normal 4.04-6.13 [facility] Comment on above: Performed By: #### B MP, PBNP, TROPHS, ANEU, ADIFF, CBC, MDW, GFR ####[address] [place], [place] [address] WBC 5.7 10 3/mcL Normal 4.6-10.8 [facility] Comment on above: Performed By: #### B MP, PBNP, TROPHS, ANEU, ADIFF, CBC, MDW, GFR ####[address] [place], [place] [address] LABORATORYOrdered By: SYSTEM SYSTEM on 10-31-2023 Troponin I.cardiac DL <= 0.01 ng/mL [Mass/Vol] 6 ng/L Normal 0 - 76 ng/L AO ADM SS Comment on above: Interpretive Data: H igh Sensitive Troponin I Reference Ranges: Female: 0-51 ng/L Male: 0-76 ng/L Testing performed on [address] [employer] using a homogeneous sandwich chemiluminescent immunoassay based on GemShare technology. Troponin I.cardiac DL <= 0.01 ng/mL [Mass/Vol] 5 ng/L Normal 0 - 76 ng/L AO ADM SS Comment on above: Interpretive Data: H igh Sensitive Troponin I Reference Ranges: Female: 0-51 ng/L Male: 0-76 ng/L Testing performed on [address] [employer] using a homogeneous sandwich chemiluminescent immunoassay based on GemShare technology. Basophils (Bld) [#/Vol] 0.0 103/mcL Normal [...] B (Bld) [Mass/Vol] 11 pg/mL Normal 0-125 [facility] Comment on above: Result Comment: NT-p roBNP results of less than 300 pg/mL effectively rules out acute congestive heart failure with 99% negative predictive value. Performed By: #### B MP, PBOSMAR, ITA, ANEU, ADIFF, CBC, MDW, GFR ####[address] [place], [place] [address] [facility] 10-31-2023 High Sensitivity Troponin I 6 ng/L Normal 0-76 [facility] Comment on above: Result Comment: High Sensitive Troponin I Reference Ranges: Female: 0-51 ng/L Male: 0-76 ng/L Testing performed on [address] [employer] using a homogeneous sandwich chemiluminescent immunoassay based on GemShare technology. Performed By: #### T REGLA ####[address] [place], [place] [address] High Sensitivity Troponin I 5 ng/L Normal 0-76 [facility] Comment on above: Result Comment: High Sensitive Troponin I Reference Ranges: Female: 0-51 ng/L Male: 0-76 ng/L Testing performed on [address] [employer] using a homogeneous sandwich chemiluminescent immunoassay based on GemShare technology. Performed By: #### T ROPHS #### [id number] [place], [place] [address] High Sensitivity Troponin I <4 Normal 0-76 [facility] Comment on above: Result Comment: High Sensitive Troponin I Reference Ranges: Female: 0-51 ng/L Male: 0-76 ng/L Testing performed on [address] [employer] using a homogeneous sandwich chemiluminescent immunoassay based on GemShare technology. Performed By: #### B MP, PBNP, TROPHS, ANEU, ADIFF, CBC, MDW, GFR ####[address] [place], [place] [address] XR CHEST 1 VIEWon 10-31-2023 XR CHEST [...] Basophil, Absolute 0.0 10 3/mcL Normal 0.0-0.2 [facility] Comment on above: Performed By: #### G FR, CBC, ANEU, PBNP, ADIFF, CMP #### [address] [place], [place] [address] Basophils/100 WBC (Bld) 0.4 % Normal 0.0-2.5 [facility] ([place]) Comment on above: Performed By: #### G FR, CBC, ANEU, PBNP, ADIFF, CMP #### [address] [place], [place] [address] Eosinophil, Absolute 0.0 10 3/mcL Normal 0.0-0.4 [facility] ([place]) Comment on above: Performed By: #### G FR, CBC, ANEU, PBNP, ADIFF, CMP #### [address] [address] Eosinophils/100 WBC (Bld) 0.6 % Normal 0.0-7.0 [facility] ([place] Comment on above: Performed By: #### G FR, CBC, ANEU, PBNP, ADIFF, CMP #### [address] [address] Lymphocyte, Absolute 1.1 10 3/mcL Normal 0.8-3.9 [facility] ([place] Comment on above: Performed By: #### G FR, CBC, ANEU, PBNP, ADIFF, CMP #### [address] [address] Lymphocytes/100 WBC (Bld) 19.8 % Normal 10.0-50.0 [facility] ([place] Comment on above: Performed By: #### G FR, CBC, ANEU, PBNP, ADIFF, CMP #### [address] [address] Monocyte, Absolute 0.5 10 3/mcL Normal 0.2-1.0 [facility] Comment on above: Performed By: #### G FR, CBC, ANEU, PBNP, ADIFF, CMP #### [address] [address] Monocytes/100 WBC (Bld) 8.0 % Normal 1.7-13.0 [facility] ([place] Comment on above: Performed By: #### G FR, CBC, ANEU, PBNP, ADIFF, CMP #### [address] [address] Neutrophils/100 WBC (Bld) 71.2 % Normal 37.0-80.0 [facility] ([place] Comment on above: Performed By: #### G FR, CBC, ANEU, PBNP, ADIFF, CMP #### [address] [address] .GFRon 10-25-2023 GFR 126 ml/min/1.73sqm Normal [facility] ([place]) Comment on above: Result Comment: GFR Population [...] FR, CBC, ANEU, PBNP, ADIFF, CMP #### [address] [address] GFR Non- 104 ml/min/1.73sqm Normal [facility] ([place]) Comment on above: Result Comment: GFR Population [...] FR, CBC, ANEU, PBNP, ADIFF, CMP #### [address] [address] .NEUABSon 10-25-2023 Neutrophil, Absolute 4.0 10 3/mcL Normal 2.9-6.2 [facility] ([place] Comment on above: Performed By: #### G FR, CBC, ANEU, PBNP, ADIFF, CMP #### [address] [address] CBCon 10-25-2023 Erythrocyte distribution width (RBC) [Ratio] 13.3 % Normal 11.5-14.5 [facility] ([place] Comment on above: Performed By: #### G FR, CBC, ANEU, PBNP, ADIFF, CMP #### [address] [address] Hematocrit (Bld) [Volume fraction] 45.1 % Normal 42.0-52.0 [facility] ([place] Comment on above: Performed By: #### G FR, CBC, ANEU, PBNP, ADIFF, CMP #### [address] [address] Hgb 15.7 G/dL Normal 14.0-18.0 [facility] ([place]) Comment on above: Performed By: #### G FR, CBC, ANEU, PBNP, ADIFF, CMP #### [address] [address] MCH (RBC) [Entitic mass] 31.8 pg High 27.0-31.2 [facility] ([place]) Comment on above: Performed By: #### G FR, CBC, ANEU, PBNP, ADIFF, CMP #### [address] [address] MCHC 34.7 G/dL Normal 31.8-35.4 [facility] ([place] Comment on above: Performed By: #### G FR, CBC, ANEU, PBNP, ADIFF, CMP #### [address] [address] MCV (RBC) [Entitic vol] 91.6 fL Normal 80.0-94.0 [facility] ([place] Comment on above: Performed By: #### G FR, CBC, ANEU, PBNP, ADIFF, CMP #### [address] [address] Platelet 342 10 3/mcL Normal 130-400 [facility] ([place] Comment on above: Performed By: #### G FR, CBC, ANEU, PBNP, ADIFF, CMP #### [address] [address] Platelet mean volume (Bld) [Entitic vol] 6.9 fL Low 7.4-10.4 [facility] ([place]) Comment on above: Performed By: #### G FR, CBC, ANEU, PBNP, ADIFF, CMP #### [address] [address] RBC 4.93 10 6/mcL Normal 4.04-6.13 [facility] ([place] Comment on above: Performed By: #### G FR, CBC, ANEU, PBNP, ADIFF, CMP #### [address] [address] WBC 5.7 10 3/mcL Normal 4.6-10.8 [facility] ([place]) Comment on above: Performed By: #### G FR, CBC, ANEU, PBNP, ADIFF, CMP #### [address] [address] CMPon 10-25-2023 Albumin Level 4.0 G/dL Normal 3.5-5.0 [facility] ([place]) Comment on above: Performed By: #### G FR, CBC, ANEU, PBNP, ADIFF, CMP #### [address] [address] Albumin/Globulin [Mass ratio] 1.2 {ratio} Normal 1.1-2.5 [facility]) Comment on above: Performed By: #### G FR, CBC, ANEU, PBNP, ADIFF, CMP #### [address] [address] ALP [Catalytic activity/Vol] 83 U/L Normal 40-135 [facility] ([place]) Comment on above: Performed By: #### G FR, CBC, ANEU, PBNP, ADIFF, CMP #### [address] [address] ALT [Catalytic activity/Vol] 34 U/L Normal 16-63 [facility] ([place] Comment on above: Performed By: #### G FR, CBC, ANEU, PBNP, ADIFF, CMP #### [address] [address] AST [Catalytic activity/Vol] 21 U/L Normal 10-40 [facility] ([place] Comment on above: Performed By: #### G FR, CBC, ANEU, PBNP, ADIFF, CMP #### [address] [address] Bili Total 0.8 mg/dL Normal 0.2-1.0 [facility] ([place]) Comment on above: Result Comment: Use of this assay is not recommended for patients undergoing treatment with eltrombopag due to the potential for falsely elevated results. Performed By: #### G FR, CBC, ANEU, PBNP, ADIFF, CMP #### [address] [address] BUN/Creatinine Ratio 19 ratio Normal 7-27 [facility] Comment on above: Performed By: #### G FR, CBC, ANEU, PBNP, ADIFF, CMP #### [address] [address] Calcium [Mass/Vol] 9.5 mg/dL Normal 8.4-10.2 [facility] ([place]) Comment on above: Performed By: #### G FR, CBC, ANEU, PBNP, ADIFF, CMP #### [address] [address] Chloride [Moles/Vol] 102 mmol/L Normal 98-107 [facility] Comment on above: Performed By: #### G FR, CBC, ANEU, PBNP, ADIFF, CMP #### [address] [address] CO2 [Moles/Vol] 31 mmol/L High 22-29 [facility] ([place] Comment on above: Performed By: #### G FR, CBC, ANEU, PBNP, ADIFF, CMP #### [address] [address] Creatinine [Mass/Vol] 0.77 mg/dL Normal 0.70-1.30 [facility] ([place]) Comment on above: Result Comment: Test ing performed on Siemens Dimension EXL analyzer using a modified kinetic Andria technique. Performed By: #### G FR, CBC, ANEU, PBNP, ADIFF, CMP #### [address] [address] Electrolyte Balance 8.0 mEq/L Normal 4.0-15.0 [facility] ([place]) Comment on above: Performed By: #### G FR, CBC, ANEU, PBNP, ADIFF, CMP #### [address] [address] Globulin 3.4 G/dL Normal [facility] ([place]) Comment on above: Performed By: #### G FR, CBC, ANEU, PBNP, ADIFF, CMP #### [address] [address] Glucose [Mass/Vol] 102 mg/dL Normal 70-105 [facility] ([place]) Comment on above: Performed By: #### G FR, CBC, ANEU, PBNP, ADIFF, CMP #### [address] [address] Potassium [Moles/Vol] 4.2 mmol/L Normal 3.5-5.1 [facility] ([place]) Comment on above: Performed By: #### G FR, CBC, ANEU, PBNP, ADIFF, CMP #### [address] [address] Sodium [Moles/Vol] 141 mmol/L Normal 136-145 [facility] ([place]) Comment on above: Performed By: #### G FR, CBC, ANEU, PBNP, ADIFF, CMP #### [address] [address] Total Protein 7.4 G/dL Normal 6.4-8.2 [facility] ([place] Comment on above: Performed By: #### G FR, CBC, ANEU, PBNP, ADIFF, CMP #### [address] [address] Urea nitrogen [Mass/Vol] 15 mg/dL Normal 7-18 [facility] ([place] Comment on above: Performed By: #### G FR, CBC, ANEU, PBNP, ADIFF, CMP #### [address] [place], [place] [address] LABORATORYOrdered By: SYSTEM SYSTEM on 10-25-2023 Albumin [...] above: Interpretive Data: T esting performed on [employer] Dimension EXL analyzer using a modified kinetic [...] [Mass/Vol] 11 pg/mL Normal 0-125 [facility] ([place]) Comment on above: Result Comment: NT-p roBNP results of less than 300 pg/mL effectively rules out acute congestive heart failure with 99% negative predictive value. Performed By: #### G FR, CBC, ANEU, PBNP, ADIFF, CMP #### [facility] [address] [place], [place] [address] XR CHEST 2 VIEWSon 4 XR CHEST 2 VIEWS ORIGINAL EXAMINATION: TWO XRAY VIEWS OF THE CHEST 10/25/2023 9:34 am COMPARISON: Chest x-ray June 23, 2022 HISTORY: ORDERING SYSTEM PROVIDED HISTORY: Reason for Exam: Shortness of breath with possible [place] yesterday morning per patient. FINDINGS: The heart [...] AM Ordering Provider: ALEKSANDR Booth [facility] ([place]) CT ANGIOGRAPHY HEAD W/ CONTR Karon 05-02-2023 [...] 05/02/2023 3:54:11 PM Ordering Provider: DAVID GUILLEN [facility] ([place]) LABORATORYOrdered By: Aggie Jauregui on 07-21-2022 Gliadin [...] Auto (Unsp spec) [#/Vol] 0.75 10*3/uL 0.83-4.51 [facility] Work Phone: Basophil percentageon 2021 Basophil percentage 0 SEEN /hpf 0-5 [facility] Work Phone: Basophils/100 WBC (Bld) 0.2 % 0-1 [facility] Work Phone: Bilirubin [Mass/Vol] 0.80 mg/dL 0.20-1.00 [facility] Work Phone: [phone] Comment on above: For patients on eltr ombopag therapy, use of Dimension [place] TBIL is not recommended. Chloride [Moles/Vol] 104 mmol/L 98-107 [facility] Work Phone: Eosinophils/100 WBC (Bld) 0.2 % 0-5 [facility] Work Phone: Glucose [Mass/Vol] 109 mg/dL 74-106 [facility] Work Phone: Comment on above: Fasting Glucose resu lt from 100 to 125 mg/dL suggests IMPAIRED HOMEOSTASIS per A.D.A. criteria. Neutrophils (Bld) [#/Vol] 10.7 10*3/uL 2.0-7.7 [facility] Work Phone: Neutrophils/100 WBC (Bld) 88.2 % 47-70 [facility] Work Phone: Potassium [Moles/Vol] 3.8 mmol/L 3.5-5.1 [facility] Work Phone: [phone] Protein [Mass/Vol] 7.2 g/dL 6.4-8.2 [facility] Work Phone: Sodium [Moles/Vol] 139 mmol/L 136-145 [facility] Work Phone: WBC (Bld) [#/Vol] 12.1 10*3/uL 4.4-11.0 [facility] Work Phone: Bilirubin Test strip Ql (U)o n 12-28-2021 Bilirubin Ql (U) Negative Negative [facility] Work Phone: Blood erythrocytes count (nu mber/volume)on 12-28-2021 RBC (Bld) [#/Vol] 4.85 10*6/uL 4.6-6.2 [facility] Work Phone: Blood hemoglobin measurement (mass/volume)on 12-28-2021 Hemoglobin (Bld) [Mass/Vol] 15.3 g/dL 13.0-16.5 [facility] Work Phone: [phone] Blood lymphocytes/100 leukoc yteson 12-28-2021 Lymphocytes/100 WBC (Bld) 6.2 % 19-41 [facility] Work Phone: [phone] Blood monocytes/100 leukocyt eson 12-28-2021 Monocytes/100 WBC (Bld) 4.7 % 0-10 [facility] Work Phone: Blood platelet mean volumeon 12-28-2021 Platelet mean volume (Bld) [Entitic vol] 8.4 fL 6.2-12.0 [facility] Work Phone: Determination of erythrocyte mean corpuscular volume (MCV)on 12-28-2021 MCV (RBC) [Entitic vol] 86.4 fL 80-94 [facility] Work Phone: Hematocrit Auto (Bld) [Volum e fraction]on 12-28-2021 Hematocrit (Bld) [Volume fraction] 41.9 % 40-54 [facility] Work Phone: Ketones Test strip Ql (U)on 12-28-2021 Ketones Ql (U) 5 mg/dl Negative [facility] Work Phone: Laboratory - Chemistry and C hemistry - challengeon 12-28-2021 ALP [Catalytic activity/Vol] 74 U/L 45-117 [facility] Work Phone: ALT [Catalytic activity/Vol] 40 U/L 16-61 [facility] Work Phone: CO2 [Moles/Vol] 25.0 mmol/L 21.0-32.0 [facility] Work Phone: Globulin (S) [Mass/Vol] 3.2 g/dL 2.2-4.2 [facility] Work Phone: Urea nitrogen/Creatinine [Mass ratio] 17.3 mg/mg 10-20 [facility] Work Phone: Laboratory - Hematology and Cell countson 12-28-2021 Erythrocyte distribution width (RBC) [Entitic vol] 37.2 fL 35.1-43.9 [facility] Work Phone: Erythrocyte distribution width (RBC) [Ratio] 11.9 % 11.6-14.6 [facility] Work Phone: Immature granulocytes/100 WBC (Bld) 0.500 % 0.0-0.9 [facility] Work Phone: Comment on above: IG% - Immature Granu locytes (promyelocytes, myelocytes and metamyelocytes) > 1% indicates that a LEFT SHIFT is Present. MCH (RBC) [Entitic mass] 31.5 pg 27.0-32.0 [facility] Work Phone: Nucleated RBC/100 WBC (Bld) [Ratio] 0 % 0-5 [facility] Work Phone: MCHC Auto (RBC) [Mass/Vol]on 12-28-2021 MCHC (RBC) [Mass/Vol] 36.5 g/dL 32-36 [facility] Work Phone: Mucus LM Ql (Urine sed)on Mucus Ql (Urine sed) 0 SEEN /hpf [facility] Work Phone: Nitrite Test strip Ql (U)on 12-28-2021 Nitrite Ql (U) Negative Negative [facility] Work Phone: No Panel Informationon 12-28 Estimated Creatinine Clearance Calc 91.89 ml/min [facility] Work Phone: Estimated GFR (MDRD) Amer 127 mL/min >60 [facility] Work Phone: Comment on above: GFR Calc Estimated GFR (MDRD) Non-Af Amer 105 mL/min >60 [facility] Work Phone: Comment on above: Non- GFR Calc Platelets bldon 12-28-2021 Platelets (Bld) [#/Vol] 316 10*3/uL 150-450 [facility] Work Phone: Protein Test strip Ql (U)on 12-28-2021 Protein Ql (U) Negative Negative [facility] Work Phone: Serum or plasma albumin jonna urement (mass/volume)on 12-28-2021 Albumin [Mass/Vol] 4.0 g/dL 3.2-5.0 [facility] Work Phone: Serum or plasma albumin/glob ulin mass ratioon 12-28-2021 Albumin/Globulin [Mass ratio] 1.2 {ratio} 0.9-2.4 [facility] Work Phone: Serum or plasma calcium jonna urement (mass/volume)on 12-28-2021 Calcium [Mass/Vol] 9.7 mg/dL 8.5-10.1 [facility] Work Phone: Serum or plasma creatinine m easurement (mass/volume)on 12-28-2021 Creatinine [Mass/Vol] 0.81 mg/dL 0.70-1.30 [facility] Work Phone: Comment on above: The validity of the calculated GFR & GFRAA in patients over 70 years has not been determined. Clinical correlation is essential. Serum or plasma urea nitroge n measurement (mass/volume)on 12-28-2021 Urea nitrogen [Mass/Vol] 14 mg/dL 7-18 [facility] Work Phone: Squamous epithelial cells de tection in urine sediment by light microscopyon 12-28-2021 Epithelial cells.squamous LM Ql (Urine sed) 0 SEEN /hpf 0-5 [facility] Work Phone: Thin prep Papanicolaou smear with manual screeningon 12-28-2021 Thin prep Papanicolaou smear with manual screening 23 U/L 15-37 [facility] Work Phone: Thin prep Papanicolaou smear with manual screening 10 5-15 [facility] Work Phone: Urine blood detectionon - RBC Ql (U) Negative Negative [facility] Work Phone: RBC Ql (U) 0 SEEN /hpf 0-5 [facility] Work Phone: Urine clarityon 12-28-2021 Clarity (U) Clear Clear [facility] Work Phone: Urine color determinationon 12-28-2021 Color (U) Yellow Yellow [facility] Work Phone: Urine glucose detectionon Glucose Ql (U) Normal mg/dl Normal [facility] Work Phone: Urine leukocyte esterase det ection by dipstickon 12-28-2021 Leukocyte esterase Test strip Ql (U) Negative Negative [facility] Work Phone: Urine pHon 12-28-2021 pH (U) 8.0 [pH] 5.0 - 8.0 [facility] Work Phone: Urine sediment bacteria coun t by microscopy (number/high power field)on 12-28-2021 Bacteria LM.HPF (Urine sed) [#/Area] 0 /[HPF] None Seen [facility] Work Phone: Urine specific gravity measu rementon 12-28-2021 Specific gravity (U) [Rel density] 1.010 1.002-1.030 [facility] Work Phone: Urobilinogen Auto test strip Ql (U)on 12-28-2021 Urobilinogen Ql (U) Normal mg/dl Normal [facility] Work Phone: LABORATORYOrdered By: Barbara Rendon on [...] 17:54-0400 Body temperature 98.6 [degF] ALESHIA BEDOLLA APRN-BULLARD OPERATOR [facility] 11-01-2023 17:54-0400 Diastolic Blood Pressure Non-Invasive 96 mm[Hg] ALESHIA KAPPER LAWYER-BULLARD OPERATOR [facility] 11-01-2023 17:54-0400 Heart rate 87 /min ALESHIA KAPPER LAWYER-BULLARD OPERATOR [facility] 11-01-2023 17:54-0400 Reason For Taking VItal Signs ALESHIA KAPPER LAWYER-BULLARD OPERATOR [facility] 11-01-2023 17:54-0400 Respiratory rate 16 /min ALESHIA KAPPER LAWYER-BULLARD OPERATOR [facility] 11-01-2023 17:54-0400 Systolic Blood Pressure Non-Invasive 130 mm[Hg] ALESHIA KAPPER LAWYER-BULLARD OPERATOR [facility] 11-01-2023 14:21-0400 Body temperature 98.24 [degF] ALESHIA KAPPER LAWYER-BULLARD OPERATOR [facility] 11-01-2023 14:21-0400 Diastolic Blood Pressure Non-Invasive 81 mm[Hg] ALESHIA KAPPER LAWYER-BULLARD OPERATOR [facility] 11-01-2023 14:21-0400 Heart rate 82 /min ALESHIA KAPPER LAWYER-BULLARD OPERATOR [facility] 11-01-2023 14:21-0400 Reason For Taking VItal Signs ALESHIA KAPPER LAWYER-BULLARD OPERATOR [facility] 11-01-2023 14:21-0400 Respiratory rate 16 /min ALESHIA KAPPER LAWYER-BULLARD OPERATOR [facility] 11-01-2023 14:21-0400 Systolic Blood Pressure Non-Invasive 129 mm[Hg] ALESHIA KAPPER LAWYER-BULLARD OPERATOR [facility] 11-01-2023 11:28-0400 Body temperature 98.24 [degF] ALESHIA PAIGEER LAWYER-BULLARD OPERATOR [facility] 11-01-2023 11:28-0400 Diastolic Blood Pressure Non-Invasive 78 mm[Hg] ALESHIA PAIGEER LAWYER-BULLARD OPERATOR [facility] 11-01-2023 11:28-0400 Heart rate 68 /min ALESHIA GIBSONER LAWYER-BULLARD OPERATOR [facility] 11-01-2023 11:28-0400 Reason For Taking VItal Signs ALESHIA BEDOLLA LAWYER-BULLARD OPERATOR [facility] 11-01-2023 11:28-0400 Respiratory rate 16 /min ALESHIA GIBSONER LAWYER-BULLARD OPERATOR [facility] 11-01-2023 11:28-0400 Systolic Blood Pressure Non-Invasive 114 mm[Hg] ALESHIA GIBSONER LAWYER-BULLARD OPERATOR [facility] 10-31-2023 17:52-0400 Body height 167.6 cm ALESHIA PAIGEER LAWYER-BULLARD OPERATOR [facility] 10-31-2023 17:52-0400 Body weight 80.1 kg ALESHIA BEDOLLA LAWYER-BULLARD OPERATOR [facility] 10-31-2023 17:52-0400 Body weight 28.52 kg/m2 ALESHIA PAIGEER LAWYER-BULLARD OPERATOR [facility] 10-31-2023 17:46-0400 Blood Pressure Location ALESHIA KAPPER LAWYER-BULLARD OPERATOR [facility] 10-31-2023 17:46-0400 Blood Pressure Method ALESHIA KAPPER LAWYER-BULLARD OPERATOR [facility] 10-31-2023 17:46-0400 Heart rate 78 /min ALESHIA KAPPER LAWYER-BULLARD OPERATOR [facility] 10-31-2023 17:02-0400 Blood Pressure Location ALESHIA KAPPER LAWYER-BULLARD OPERATOR [facility] 10-31-2023 17:02-0400 Blood Pressure Method ALESHIA KAPPER LAWYER-BULLARD OPERATOR [facility] 10-31-2023 17:02-0400 Heart rate 74 /min ALESHIA KAPPER LAWYER-BULLARD OPERATOR [facility] 10-31-2023 16:03-0400 Blood Pressure Location ALESHIA KAPPER LAWYER-BULLARD OPERATOR [facility] 10-31-2023 16:03-0400 Blood Pressure Method ALESHIA KAPPER LAWYER-BULLARD OPERATOR [facility] 10-31-2023 16:03-0400 Heart rate 77 /min ALESHIA KAPPER LAWYER-BULLARD OPERATOR [facility] 10-31-2023 12:57-0400 Body weight 80.1 kg ALESHIA KAPPER LAWYER-BULLARD OPERATOR [facility] 08-12-2022 11:52-0400 Diastolic Blood Pressure Non-Invasive [address] BARNEY ALVAREZ MD [facility] 08-12-2022 11:52-0400 Heart rate 70 /min DR BARNEY ALVAREZ MD [facility] 08-12-2022 11:52-0400 Respiratory rate 16 /min DR BARNEY ALVAREZ MD [facility] 08-12-2022 11:52-0400 Systolic Blood Pressure Non-Invasive [address] BARNEY ALVAREZ MD [facility] 08-12-2022 11:45-0400 Diastolic Blood Pressure Non-Invasive [address] BARNEY ALVAREZ MD [facility] 08-12-2022 11:45-0400 Heart rate 65 /min DR BARNEY ALVAREZ MD [facility] 08-12-2022 11:45-0400 Respiratory rate 16 /min DR BARNEY ALVAREZ MD [facility] 08-12-2022 11:45-0400 Systolic Blood Pressure Non-Invasive [address] BARNEY ALVAREZ MD [facility] 08-12-2022 11:40-0400 Diastolic Blood Pressure Non-Invasive [address] BARNEY ALVAREZ MD [facility] 08-12-2022 11:40-0400 Heart rate 64 /min DR BARNEY ALVAREZ MD [facility] 08-12-2022 11:40-0400 Respiratory rate 20 /min DR BARNEY ALVAREZ MD [facility] 08-12-2022 11:40-0400 Systolic Blood Pressure Non-Invasive [address] BARNEY ALVAREZ MD [facility] 08-12-2022 11:26-0400 Body temperature 98.06 [degF] DR BARNEY ALVAREZ MD [facility] 08-12-2022 11:20-0400 Respiratory Rate - Anes 11 br/min DR BARNEY ALVAREZ MD [facility] 08-12-2022 11:15-0400 Respiratory Rate - Anes 11 br/min DR BARNEY ALVAREZ MD [facility] 08-12-2022 11:10-0400 Respiratory Rate - Anes 9 br/min DR BARNEY ALVAREZ MD [facility] 08-12-2022 10:14-0400 Body height 167.[address] BARNEY ALVAREZ MD [facility] 08-12-2022 10:14-0400 Body weight 76.[address] BARNEY ALVAREZ MD [facility] 08-12-2022 10:14-0400 Body weight 27.03 kg/m2 DR BARNEY ALVAREZ MD [facility] 08-12-2022 10:00-0400 Heart rate 73 /min DR BARNEY ALVAREZ MD [facility] 02-18-2022 16:00-0500 Body temperature 98.2 [degF] Dr. Nazanin Mendoza Work Phone: [facility] Work Phone: 02-18-2022 16:00-0500 Diastolic blood pressure 84 mm[Hg] Dr. Nazanin Mendoza Work Phone: [facility] Work Phone: 02-18-2022 16:00-0500 Heart rate 71 /min Dr. Nazanin Mendoza Work Phone: [facility] Work Phone: 02-18-2022 16:00-0500 Respiratory rate 16 /min Dr. Nazanin Mendoza Work Phone: [facility] Work Phone: 02-18-2022 16:00-0500 SaO2% (BldA) [Mass fraction] 99 % Dr. Nazanin Mendoza Work Phone: [facility] Work Phone: 02-18-2022 16:00-0500 Systolic blood pressure 108 mm[Hg] Dr. Nazanin Mendoza Work Phone: [facility] Work Phone: 02-18-2022 14:45-0500 Inhaled oxygen flow rate 2 L/min Dr. Nazanin Mendoza Work Phone: [facility] Work Phone: 02-18-2022 11:53-0500 Body height 167.[address] Nazanin Mendoza Work Phone: [facility] Work Phone: 02-18-2022 11:53-0500 Body mass index (BMI) [Ratio] 27.3 kg/m2 Dr. Nazanin Mendoza Work Phone: [facility] Work Phone: 02-18-2022 11:53-0500 Body weight [address] Nazanin Mendoza Work Phone: [facility] Work Phone: 02-03-2022 08:51-0500 Body mass index (BMI) [Ratio] 27.4 kg/m2 Dr. Nazanin Mendoza Work Phone: [facility] Work Phone: 02-03-2022 08:51-0500 Body temperature 98 [degF] Dr. Nazanin Mendoza Work Phone: [facility] Work Phone: 02-03-2022 08:51-0500 Body weight 77.[address] Nazanin Mendoza Work Phone: [facility] Work Phone: 02-03-2022 08:51-0500 Diastolic blood pressure 93 mm[Hg] Dr. Nazanin Mendoza Work Phone: [facility] Work Phone: 02-03-2022 08:51-0500 Heart rate 78 /min Dr. Nazanin Mendoza Work Phone: [facility] Work Phone: 02-03-2022 08:51-0500 Respiratory rate 18 /min Dr. Nazanin Mendoza Work Phone: [facility] Work Phone: 02-03-2022 08:51-0500 SaO2% (BldA) [Mass fraction] 98 % Dr. Nazanin Mendoza Work Phone: [facility] Work Phone: 02-03-2022 08:51-0500 Systolic blood pressure 135 mm[Hg] Dr. Nazanin Mendoza Work Phone: [facility] Work Phone: 12-28-2021 12:07-0500 Diastolic blood pressure 98 mm[Hg] [facility] Work Phone: 12-28-2021 12:07-0500 Heart rate 90 /min [facility] Work Phone: 12-28-2021 12:07-0500 Respiratory rate 16 /min [facility] Work Phone: 12-28-2021 12:07-0500 SaO2% (BldA) [Mass fraction] 99 % [facility] Work Phone: 12-28-2021 12:07-0500 Systolic blood pressure 142 mm[Hg] [facility] Work Phone: 12-28-2021 10:55-0500 Body height 167.64 cm [facility] Work Phone: 12-28-2021 10:55-0500 Body mass index (BMI) [Ratio] 27.4 kg/m2 [facility] Work Phone: 12-28-2021 10:55-0500 Body temperature 97.4 [degF] [facility] Work Phone: 12-28-2021 10:55-0500 Body weight 77.11 kg [facility] Work Phone: Encounters Encounter Date Encounter Type Care Provider Facility Start: 04-18-2024 End: 04-18-2024 ambulatory REHANA CEJA LAWYER-BULLARD OPERATOR Facility[facility] Start: 04-18-2024 End: 04-18-2024 Patient encounter procedure REHANA CEJA LAWYER-BULLARD OPERATOR [facility] Start: 03-15-2024 End: 03-15-2024 ambulatory Nazanin Mendoza Facility:[facility] Start: 12-27-2023 End: 12-27-2023 ambulatory REHANA CEJA LAWYER-BULLARD OPERATOR Facility[facility] Start: 12-27-2023 End: 12-27-2023 Patient encounter procedure REHANA CEJA LAWYER-BULLARD OPERATOR [facility] Start: 11-20-2023 ambulatory Radames Maurer Fac ility:[facility] Start: 11-09-2023 End: 11-09-2023 ambulatory Bowen Aguilera Facility:[facility] Start: 11-09-2023 ambulatory Alejandra Lutz [facility] Start: 11-09-2023 End: 11-10-2023 Evaluation and management of inpatient [facility] Facility[facility] Start: 10-31-2023 End: 11-01-2023 Emergency department patient visit CAYETANO KEY DO Facility:[facility] Start: 10-31-2023 End: 11-01-2023 Observation ALESHIA BEDOLLA LAWYER-[facility] Start: 10-28-2023 ambulatory [facility]LEKSANDR STEPHENSON [facility] Start: 10-25-[address] ALEKSANDR STEPHENSON DO Facili ty:[facility] Start: 10-25-2023 End: 10-29-2023 ambulatory REHANA CEJA LAWYER-BULLARD OPERATOR Facility:[facility] Start: 10-25-2023 End: 10-29-[address] ALEKSANDR STEPHENSON DO [facility] Start: 10-25-2023 End: 10-25-2023 ambulatory REHANA CEJA LAWYER-BULLARD OPERATOR Facility:[facility] Start: 10-25-2023 End: 10-25-[address] ALEKSANDR STEPHENSON DO [facility] Start: 05-02-2023 End: 05-02-2023 ambulatory REHANA CEJA LAWYER-BULLARD OPERATOR Facility:[facility] Start: 08-12-2022 End: 08-12-[address] BARNEY ALVAREZ MD [facility] Start: 07-21-2022 End: 07-25-2022 Outreach Lab REHANA CEJA LAWYER-BULLARD OPERATOR [facility] Start: 06-23-2022 End: 06-23-2022 Patient encounter procedure REHANA CEJA LAWYER-BULLARD OPERATOR [facility] Start: 02-18-2022 Non-patient / Non-visit Dr. Givens Work Phone: [facility] Start: 02-18-2022 End: 02-18-2022 Admission to same day surgery center [facility] Start: 02-18-2022 End: 02-18-[address] Nazanin Mendoza Work Phone: [facility] Work Phone: Start: 02-03-2022 End: 02-03-[address] Nazanin Mendoza Work Phone: [facility] Start: 12-28-2021 End: 12-28-2021 Emergency department patient visit [facility] Start: 08-26-2021 End: 08-26-2021 Patient encounter procedure BOB ROBERTSON LAWYER-BULLARD OPERATOR [facility] Start: 04-09-2021 End: 04-09-2021 Patient encounter procedure NAZANIN MENDOZA MD [facility] Procedures Date Procedure Procedure Detail Performing Clinician Start: 08-12-[address] BARNEY ALVAREZ MD Start: 02-18-2022 Lap Robotic Inguinal Hernia (Right) Dr. Nazanin Mendoza Work Phone: Start: 02-18-2022 Hernia repair REHANA BUSTAMANTE LAWYER-BULLARD OPERATOR Comment on above: R inguinal Start: 12-28-2021 [...] Activity Detail Author Start: 02-18-2022 Patient discharge [facility] Work Phone: Patient Education ED [facility]man Ashwini ter, Care ED Hernia (Adult) ED Urinary Retention, Male ED Abdominal Pain Unkn Cause Male... [facility] Work Phone: Patient referral [facility] Work Phone: Immunizations Immunization Date Immunization Notes Care Provider Fa cili 03-24-2022 tetanus toxoid, redu kin diphtheria toxoid, and acellular pertussis vaccine, adsorbed; Translations: [Boostrix (Tdap)] REHANA CEJA LAWYER-BULLARD OPERATOR [facility] 11-09-2021 zoster vaccine recombinant REHANA CEJA LAWYER-BULLARD OPERATOR [facility] 06-09-2021 zoster vaccine recombinant BOB ROBERTSON LAWYER-BULLARD OPERATOR [facility] 02-21-2010 tetanus toxoid, redu kin diphtheria toxoid, and acellular pertussis vaccine, adsorbed NAZANIN MENDOZA MD [facility] Payers Date Payer Category Payer Unknown [id number] 2023 Self-pay 2023 Unknown [id number] 1965 Unknown [id number] 2.16.8 40.1.234511.3.579.2. 1965 Unknown [id number] 2.16.8 40.1.984530.3.579.2. 1965 Unknown [id number] 2.16.8 40.1.835752.3.579.2 1965 Unknown [id number] 2.16.8 40.1.519569.3.579.2. 1965 Unknown [id number] 2.16.8 40.1.697749.3.579.2. 1965 Unknown [id number] 2.16.8 40.1.595787.3.579.2. 1965 Unknown [id number] 2.16.8 40.1.868630.3.579.2. 1965 Unknown [id number] 2.16.8 40.1.504788.3.579.2. 1965 Unknown [id number] 2.16.8 40.1.686093.3.579.2. 1965 Unknown [id number] 2.16.8 40.1.338029.3.579.2.627 Unknown [facility] [id number] Unknown [id number] 2.16.8 40.1.279504.3.579.2.462 Unknown [id number] 2.16.8 40.1.030554.3.579.2.462 Unknown [id number] 2.16.8 40.1.709610.3.579.2.462 Unknown [id number] 2.16.8 40.1.926186.3.579.2.462 Unknown [id number] 2.16.8 40.1.486252.3.579.2.462 Unknown [id number] 2.16.8 40.1.686489.3.579.2.462 Unknown [id number] 2.16.8 40.1.515266.3.579.2.462 Unknown [id number] 2.16.8 40.1.122780.3.579.2.462 Unknown [id number] 2.16.8 40.1.013469.3.579.2.462 Social History Date Type Detail Facility Start: 11-20-2018 Ex-smoker (finding) [facility] Comment on above: tobacco/smoke exposu re: none Start: 1965 Sex Assigned At Male A [facility] Start: 08-26-2021 Tobacco smoking status Smoker (findi ng) [facility] Comment on above: tobacco/smoke exposu re: none Start: 12-28-2021 End: 02-11-2022 Tobacco smoking status NHIS Unknown if ever smoked [facility] Work Phone: Start: 03-24-2022 End: 08-22-2023 Tobacco smoking status Never smoked tobacco (finding) [facility] Comment on above: tobacco/smoke exposu re: none Sexual Orientation [facility] Start: 08-16-2018 Sex Male (finding) [facility] Goals Date Patient Goal Desired Activity /State Functional Status Date Assessment Result Facility 11-01-2023 Functional Status Room check performed [facility] 11-01-2023 Functional Status [facility] 11-01-2023 Functional Status [facility] 11-01-2023 Functional Status Nurse Safety Ed harman q2hrs Performed 7pm-7am [facility] 10-31-2023 Functional Status [facility] 10-31-2023 Functional Status [facility] 10-31-2023 Functional Status [facility] 08-12-2022 Functional Status Sensory Deficits None [facility] 08-12-2022 Functional Status Ambulating in room, Awake [facility] Mental Status Date Assessment Result Facility 11-01-2023 [facility] Status [facility]-31-[facility]23 [facility] 10-31-2023 Mental Status [facility] 08-12-2022 Mental Status Oriented x 4 [facility] 02-18-2022 Cognitive function Voice/Name [facility] Work Phone: Clinical Notes 06-23-2022 to 11-10-2023 Note Date & Type Note Facility 11-10-2023 Note [facility] [address] [place] [address] Discharge Summary 11/10/23 1316 MR#: [id number] Acct: [id number] Name: TEODORA LEO Rep #: [id number] : 1965 58 From: Radames Maurer DO PCP: Dr. Nazanin Mendoza MD Status:DIS IN Location: [facility] [id number] Providers Date of Admission: 11/09/23 Date of [...] Patient is a 58-year-old male who presented [facility] ED on 11/09/2023 with recurrent chest pain and presyncopal symptoms. Short hospital course as noted below. Patient discharged home in stable condition on 11/09. 1. Recurrent chest pain with presyncopal symptoms ??? Cardiology followed. Echo done recently at [facility] showed EF 50 to 55%, no wall [...] Larson MD at (more content not included)... [facility] 11-01-2023 Hospital Discharge instructions Patient Education 11/01/2023 [...] 02/07/2006 Document Revised: 04/27/2019 Document Reviewed: 04/27/2019 [employer] Patient Education 2020 [employer]. 11/01/2023 16:53:48 Nonspecific Chest Pain, Adult, [id number] Nonspecific Chest Pain Chest pain can be [...] Follow these instructions at home: Medicines Take [id number] and prescription medicines only as told by [...] ?Eating a heart-healthy diet. A diet and child nutrition manager (dietitian) can help you to learn healthy [...] 07/26/2008 Document Revised: 08/10/2018 Document Reviewed: 08/10/2018 [employer] Patient Education 2020 [employer]. Follow Up Care 10/31/2023 12:54:12 With:LIVE SILVERIOCHUCK BARBA Address: [address] [place] [address] [address] [facility] [place] [address]- [phone] When:5 to 7 days Comments:new onset of heart failure [facility] 11-01-2023 Note Discharge Instructions Thank you for allowing [facility] to assist you with your healthcare needs. The following is important discharge information regarding your hospital visit. Your Care Team [facility] Your Diagnosis Chest discomfort Chewing [...] We have a nurse practitioner here in [place] from Tuesday- who can make recommendations and [...] OV 11/02/2023 09:30 AM EDT RADHA PADRON [facility] [place] [address] [place] [id number] Confirmed HL Plain Stress Test 11/14/2023 06:00 AM EDT [facility] [phone] Confirmed Echo - Echocardiogram Adult 11/14/2023 09:00 AM EDT [facility] [phone] Confirmed PC OV 11/16/2023 10:30 AM EDT REHANA CEJA [facility] [place] Confirmed Follow Up Appointments Follow Up with LINNEA SILVERIO When:Within 5 to 7 days Where:[address] [facility] [place] [phone] Additional Information: new onset of heart failure [...] 02/07/2006 Document Revised: 04/27/2019 Document Reviewed: 04/27/2019 Anomalous Networks Patient Education 2020 Anomal[employer] Networks Inc. Nonspecific Chest Pain Chest pain can [...] Follow these instructions at home: Medicines Take rmoz-lla-wceunqw and prescription medicines only as told by [...] Eating a heart-healthy diet. A diet and child nutrition manager (dietitian) can help you to learn healthy [...] Document Reviewed: 08/10/2018 Elsevier Patient Education 2020 Anomalous Networks Inc. Additional Information VACCINATE! IT SAVES LIVES! Members of the community who have not yet received the COVID-19 vaccine and would like to receive it can visit one of [facility] vaccine clinics. There are many vaccine clinic locations within the [facility]. For locations and available times, please visit https://[email or web address].[place].gov/. It is important to note that some COVID mobile vaccine clinics are held outdoors and may be canceled in rainy or stormy conditions. To learn more about pediatric vaccinations (ages 5-11), we invite you to visit the [employer] [facility] webpage. https://www.[address] [employer].[email or web address]/pa ges/8877-Vpice-Ymdvudplnxf-Freque hhpp-Fjkwg-Ethmdqudd.html To learn more about the COVID-19 vaccine, we invite you to visit the CDC website for a list of frequently asked questions.https://www.cdc.gov/cor onavirus/2019-ncov/vaccines/faq.h tml [facility] Patient Portal Access Instructions: Stay connected with your healthcare team and access your personal medical information anytime with the [facility] Patient Portal. Please follow the directions below to create your [facility] account: 1.Access the email account you provided upon registration to the hospital/physician office.2.Look for an invitation email from [facility].3.Open the email and access the invitation link: Accept Invitation to [facility].4.Fill in the required duckworth to create your account. To access your account, visit [employer]/[email or web address]. Click the blue button labeled Access Patient [...] your information. You can also access the [facility] Patient Portal on the [place] [facility] rosa. Simply click on Patient Portal and then log into your account. If you would like to receive a full copy of your medical records, please contact the [facility] Medical Records Department by calling [phone], Tuesday through Tuesday between 8 a.m. and [...] Call your local pharmacy or go to http://Bunch/5Z7Gj2s to find one close to you.3.Make use of household items: Use cat litter or old coffee grounds to dispose medications if other options are not available. Mix your drugs with these household products, seal them in an airtight container and throw it into the garbage. Call [facility]: [phone] to be sure your drugs can be [...] Heart Failure, Diagnosis Nonspecific Chest Pain, Adult, Xxrl-zk-Tifb Medication Leaflets My discharge plan and instructions have been reviewed and explained to me and I,TEODORA LEO understand my current condition and have read and understand these discharge instructions. I have received a written copy of the plan/instructions. If I have questions, I am aware that I should contact my doctor. Patient/Foreign Service Officer Signature: Date/Time: Relationship to Patient: ____ Witness Name/Signature: Date/Time: [facility] 11-01-2023 Evaluation + Plan note Extrac chuckie from: Title:History and Physical Author:ALESHIA BEDOLLA APRN-BULLARD OPERATOR Date:11/01/23 1. Chest discomfort Acute, new onset [...] Appointment Date:11/02/2023 09:30:00 AM Scheduled Provider:RADHA PADRON Location:[facility] Appointment Type:PC OV Appointment Date:11/14/2023 06:00:00 AM Scheduled Provider: Location:[facility] Appointment Type:HL Plain Stress Test Appointment Date:11/14/2023 09:00:00 AM Scheduled Provider: Location:[facility] Appointment Type:Echo - Echocardiogram Adult Appointment Date:11/16/2023 10:30:00 AM Scheduled Provider:REHANA CEJA Location:[facility] Appointment Type:PC OV [facility] 09-10-2024 Note* Exam Date Time Procedure Performing Provider Status 11/01/23 12:01 PM Echocardiogram, Adult - CV Auth (Verified) [facility] 09-10-2024 Note ORIGINAL NM MYOCARDIAL SPECT STRESS/REST [...] Sign Date: 11/01/2023 4:28:18 PM Ordering Provider[facility] Note Date of Service 11/01/2023 Chief Complaint Patient states that he was recently diagnosed with high blood pressure and started on medication a week ago but is still experiencing high blood pressure. History of Present Illness Patient is a 58-year-old male, who follows with Rehana Ceja CNP with a past medical history significant for hypertension, GERD and tobacco use, presented to [facility] emergency department with the chief complaint [...] will likely need to be transferred to [facility] for cardiology consult. All questions answered. Review [...] smoker Alcohol Use: Never., 11/20/2018 Home/Environment Primary Field Technical Assistant: self., 03/24/2022 Nutrition/Health Type of diet: Regular. [...] by ALESHIA BEDOLLA on 11/01/2023 09:42 AM [facility]09-09-2024 Note ORIGINAL EXAMINATION: ONE XRAY VIEW OF [...] Date: 10/31/2023 2:41:37 PM Ordering Provider[facility] NoteSinus rhythm Borderline T abnormalities, inferior leads Baseline wander in lead(s) V1 S1Q3T3 EKG interpretation is noted and agreed to in [employer]. The interpretation of this patient's EKG contributed directly to the care and management of this patient. Electronic Signature: ALISA MCKINNEY DO 10/31/2023 13:44:[address] [place] [address] 09-03-2024 Note ORIGINAL EXAMINATION: TWO XRAY VIEWS OF THE CHEST 10/25/2023 9:34 am COMPARISON: Chest x-ray June 23, 2022 HISTORY: ORDERING SYSTEM PROVIDED HISTORY: Reason for Exam: Shortness of breath with possible [place] yesterday morning per patient. FINDINGS: The heart [...] Date: 10/25/2023 11:57:37 AM [facility]ing [facility] Evaluation + Plan noteExtracted from: Title:Office Visit Note Author:BARNEY ALVAREZ MD Date:08/12/22 Orders: Lactated Ringers Infusion 1,000 mL, Start: 08/12/22 9:57:00 EDT, Rate: 20 mL/hr, 08/12/22 9:57:00 EDT Communication Order (scheduled) Communication Order (scheduled) Communication Order (scheduled) Consult to Anesthesia Sign Consent He is here for screening colonoscopy. Consent conference held. Future Appointments Appointment Date:09/13/2022 07:00:00 PM Scheduled Provider: Location:[facility] Appointment Type: Home Studies [facility] 06-22-2023 Hospital Discharge instructions Patient Education 08/12/2022 [...] a slower pace than normal. ?Eat soft, qrbb-nf-blywho foods. Take nnal-bik-hsxyhib or prescription medicines only as told by [...] 09/21/2004 Document Revised: 11/30/2017 Document Reviewed: 04/20/2016 Anomalous Networks Patient Education 2020 Exhibia. 08/12/2022 11:42:52 Monitored Anesthesia Care, Care After [...] before eating solid foods. General instructions Take zjbr-wbn-hkbhabq and prescription medicines only as told by [...] 05/30/2016 Document Revised: 05/08/2018 Document Reviewed: 05/30/2016 Anomalous Networks Patient Education 2020 [employer]hibia. Follow Up Care 07/28/2022 14:01:44 With:BARNEY ALVAREZ Address: [address] [place] [address] [phone] Business (1) When: Unknown Comments:YOU WILL NOT NEED ANOTHER COLONOSCOPY FOR 10 YEARS. [facility] 06-22-2023 Summary of episode note Discharge Instructions Thank you for allowing [facility] to assist you with your healthcare needs. The following is importantdischarge information regarding your hospital visit. Your Care Team REHANA CEJA What to do next Scheduled Follow-Up Appointments Appointment [facility]/13/2022 07:00 PM EDT [facility] Sleep [facility] Follow Up Appointments Follow Up with BARNEY ALVAREZ When Why: YOU WILL NOT NEED ANOTHER COLONOSCOPY FOR 10 YEARS. Where: [address] [place] [address] [phone] Business (1) The Following Activity and Diet [...] as provided by your GI provider at [facility]. Please take this list to your next [...] slower pace than normal. ? Eat soft, xvpn-hi-llykbj foods. Take uncl-aiz-xhttkeh or prescription medicines only as told by [...] 09/21/2004 Document Revised: 11/30/2017 Document Reviewed: 04/20/2016 Anomalous Networks Patient Education 2020 Exhibia. Monitored Anesthesia Care, Care After These instructions [...] before eating solid foods. General instructions Take xwen-rxf-pzbmjca and prescription medicines only as told by [...] 05/30/2016 Document Revised: 05/08/2018 Document Reviewed: 05/30/2016 Anomalous Networks Patient Education 2020 Exhibia. Additional Information VACCINATE! IT SAVES LIVES! Members of the community who have not yet received the COVID-19 vaccine and would like to receive it can visit one of [facility] vaccine clinics. There are many vaccine clinic locations within the [facility]. For locations and available times, please visit https://[email or web address].[place].gov/. It is important to note that some COVID mobile vaccine clinics are held outdoors and may be canceled in rainy or stormy conditions. To learn more about pediatric vaccinations (ages 5-11), we invite you to visit the [facility] webpage. https://www.[facility].org/pages/5048-Wjqay-Aftoxmpqdlw-Kwfgfwnabg-Pjqhv-Mhx stions.htmlTo learn more about the COVID-19 vaccine, we invite you to visit the CDC website for a list of frequently asked questions.https://www.cdc.gov/coronavirus/2019-ncov/vaccines/faq.html [facility] Patient Portal Access Instructions: Stay connected with your healthcare team and access your personal medical information anytime with the [facility] Patient Portal. Please follow the directions below to create your [employer] account: 1.Access the email account you provided upon registration to the hospital/physician office.2.Look for an invitation email from [facility].3.Open the email and access the invitation link: AcceptInvitation to [facility].4.Fill in the required duckworth to create your account. To access your account, visit [email or web address]. Click the blue button labeled Access Patient [...] who you will allowto register on the [facility] [employer] Patient Portal for access to your information. You can also access the [place] [employer] Patient Portal on the [place] [employer]where rosa. Simply click on Patient Portal and then log into your account. If you would like to receive a full copy of your medical records, please contact the [facility] Medical Records Department by calling [phone], Tuesday through Tuesday between 8 a.m. and [...] Call your local pharmacy or go to http://bit.ly/0A1Io8z to find one close to you.3.Make use of household items: Use cat litter or old coffee grounds to dispose medications if other options arenot available. Mix your drugs with these household products, seal them in an airtight container andthrow it into the garbage. Call [facility]: [phone] to be sure your drugs can be [...] am aware that I should contactmy doctor. Patient/Foreign Service Officer Signature: Date/Time: Relationship to Patient: Witness Name/Signature: Date/Time: [facility]06-22-2023 Anesthesiology Consult note Patient: TEODORA LEO Age: [...] by JAYLEN RUDOLPH on 08/12/2022 11:24 AM [facility]06-22-2023 Note Chief Complaint Screening colonoscopy History of [...] smoker Alcohol Use: Never., 11/20/2018 Home/Environment Primary Field Technical Assistant: self., 03/24/2022 Nutrition/Health Type of diet: Regular. [...] as provided by your GI provider at [facility]. Digitally Signed by BARNEY ALVAREZ MD on 08/12/2022 11:07 AM [facility]06-22-2023 Anesthesiology Consult note Patient: TEODORA LEO Age: 57 years Sex: Male : 1965 Associated Diagnoses: None Author: TERESITA RODRIGUEZ APRN-VENETIAN BLIND WORKER Preoperative Information Time of last food or [...] as provided by your GI provider at [facility]., 1 EA, 0 Refill(s) Documented Medications Documented ibuprofen 200 mg oral tablet: 400 mg, 2 tab(s), Oral, q6hr, PRN: pain or fever, 0 Refill(s), Medications (1) Active Scheduled: (0) Continuous: (1) Lactated Ringers 1,000 mL 1,000 mL, Intravenous, 20 mL/hr PRN: (0) Problem list: Medical 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 [place] license / SNOMED CT 347133742 / Confirmed Elevated blood pressure reading / SNOMED CT 630320386 / Confirmed Fatigue / SNOMED CT 857504242 / Confirmed History of surgical amputation of finger of right hand / SNOMED CT 0049952630 / Confirmed Insomnia / SNOMED CT 993749182 / Confirmed Chewing tobacco nicotine dependence / SNOMED CT 89696251 / Confirmed Paresthesia of hand, bilateral / SNOMED CT 1746988241 / Confirmed Screening for colon cancer / SNOMED CT 985980423 / Confirmed Screening for cardiovascular condition / SNOMED CT 393503726 / Confirmed Screening for prostate cancer / SNOMED CT 883441273 / Confirmed Well adult exam / SNOMED CT 513165163 / Confirmed Screening for diabetes mellitus / SNOMED CT 201866916 / Confirmed Snoring / SNOMED CT 888865021 / Confirmed Unintentional weight loss / SNOMED CT 7762582257 / Confirmed Need for hepatitis C screening test / SNOMED CT 979086265 / Confirmed Vitamin D deficiency / SNOMED CT 30679266 / Confirmed Canceled: Agitated depression / SNOMED CT 417644335 Canceled: Screening for hepatitis C declined / SNOMED CT 4146501819 Canceled: Unintentional weight loss / SNOMED CT 5097604188 Canceled: Vitamin D overdose / SNOMED CT 4613104819, Active Problems (17) Chewing tobacco nicotine dependence [...] attack Father () Procedure history: Hernia repair ([id number]) on 02/18/2022 at 56 Years. Comments: 03/24/2022 6:12 Marion Sanchez LPN inguinal Traumatic amputation ([id number]). Comments: 04/09/2013 12:12 CARLOS Amaya FINGER Appendectomy ([id number]). Hernia repair (95603606). Social History Social & Psychosocial Habits Alcohol 11/20/2018 Use: Never Substance Abuse 11/20/2018 Use: Never Tobacco 03/24/2022 Tobacco Use: Never (less than 100 in l Type: Oral (Snuff, Chew) Comment: tobacco/smoke exposure: none - 11/20/2018 15:41 - Amanda Singh LPN Home/Environment 03/24/2022 Primary Field Technical Assistant: self Nutrition/Health 09/23/2021 Type of diet: Regular Appetite Good Eating Difficulties None Caffeine intake amount: One coffee daily . Physical Examination Vital Signs 08/12/2022 10:00 EDT Apical Heart Rate 73 bpm Respiratory Rate 16 br/min Systolic Blood Pressure Non-Invasive 106 mmHg Diastolic Blood Pressure Non-Invasive 71 mmHg Vital Signs(last 24 hrs) Last Charted Resp Rate 16 br/min (AUG 12 10:00) HJO236 mmHg (AUG 12 10:00) DBP71 mmHg (AUG 12 10:00) BMI27.03 (AUG 12 10:14) Measurements from flowsheet : Measurements 08/12/2022 10:14 EDT Height 167.8 cm Admission Weight 76.1 kg [place] Body Weight 63.94 kg BSA Admission 1.86 Body Mass Index 27.03 kg/m2 08/12/2022 10:00 EDT Height 167.8 cm Admission Weight 76.1 kg [place] Body Weight 63.94 kg Admission Body Mass [...] Person #1 We May Share TARA rico [phone] Designated Person #1 Relationship Spouse Height 167.8 cm Admission Weight 76.1 kg [place] Body Weight 63.94 kg BSA Admission 1.86 [...] Method Explanation, Printed materials Preferred Written Language Djiboutian Preferred Spoken Language Djib[place]ian Information Given by Patient Patient's Current Physicians [...] Height 167.8 cm Admission Weight 76.1 kg [place] Body Weight 63.94 kg Admission Body Mass [...] Elimination Voiding, no difficulties Mucous Membrane Color [place] Characteristics of Speech Clear Level of Consciousness Alert Strength All Extremities Strong Affect/Behavior Appropriate, Calm, Cooperative Orientation Oriented x 4 Patient Identified Identification band Tyler Motor (2) Moves 4 extremities voluntarily or on command Tyler Respirations (2) Spontaneous respiration without support, RR > 10 Tyler Blood Pressure (2) BP 20% above or below preanesthetic level Tyler Pulse (2) Pulse 20% above or below preanesthetic level Tyler Oxygen Saturation (2) 94% or more Tyler Level of Consciousness (2) Fully awake Tyler III Score 12 Standard Safety ID band on, Call device within reach, Bed in low position, Wheels locked . Assessment and Plan [place] Society of Anesthesiologists (ASA) physical status classification: Class II. Anesthetic Preoperative Plan Premedication: intravenous. Anesthetic technique: MAC. Induction: intravenously. Maintenance airway: Mask. Postoperative pain management: Per surgeon. Risks discussed: nausea, vomiting, headache, sore throat, dental injury, hypotension, allergic reaction, serious complications. Informed consent: signed by patient. Notes: tobacco use. Digitally Signed by TERESITA RODRIGUEZ on 08/12/2022 10:49 AM [facility]05-04-2023 Note ORIGINAL EXAMINATION: TWO XRAY VIEWS OF [...] 06/24/2022 12:21:06 AM Ordering Provider: REHANA CEJA [facility]05-03-2023 Note ORIGINAL EXAMINATION: TWO XRAY VIEWS OF [...] Date: 06/24/2022 12:21:06 AM Ordering [facility] Future Appointments Appointment Date:04/16/2021 08:00:00 AM Scheduled Provider:NAZANIN MENDOZA MD Location:[facility] Appointment Type:PC OV Diagnostic Tests Pending * Antinuclear Antibody Screen, Serum 04/09/21 * Rheumatoid Factor 04/09/21 [facility] Evaluation + Plan note Future Appointments Appointment Date:09/23/2021 07:30:00 AM Scheduled Provider:BOB ROBERTSON Location:[facility] Appointment Type:PC OV Follow Up [facility] Evaluation + Plan note Future Appointments Appointment Date:07/21/2022 07:30:00 AM Scheduled Provider:REHANA CEJA Location:[facility] Appointment Type:PC OV Future Scheduled Tests Laboratory* Celiac Serology 06/21/22 [facility] Evaluation + Plan note Future Appointments Appointment Date:07/28/2022 07:30:00 AM Scheduled Provider: Location:[facility] Appointment Type:GI OV Consult [facility] Evaluation + Plan note Future Appointments Appointment Date:11/14/2023 07:45:00 AM Scheduled Provider: Location:[facility] Appointment Type:HL Plain Stress Test Appointment Date:11/14/2023 09:00:00 AM Scheduled Provider: Location:[facility] Appointment Type:Echo - Echocardiogram Adult Appointment Date:11/16/2023 10:30:00 AM Scheduled Provider:REHANA CEJA Location:[facility] Appointment Type:PC OV [facility] Evaluation + Plan note Future Appointments Appointment Date:11/02/2023 09:30:00 AM Scheduled Provider:RADHA PADRON Location:[facility] Appointment Type:PC OV Appointment Date:11/14/2023 07:45:00 AM Scheduled Provider: Location:[facility] Appointment Type:HL Plain Stress Test Appointment Date:11/14/2023 09:00:00 AM Scheduled Provider: Location:[facility] Appointment Type:Echo - Echocardiogram Adult Appointment Date:11/16/2023 10:30:00 AM Scheduled Provider:REHANA CEJA Location:[facility] Appointment Type:PC OV [facility] Evaluation + Plan note Future Appointments Appointment Date:01/02/2024 08:00:00 AM Scheduled Provider:REHANA CEJA Location:[facility] Appointment Type:PC Wellness Annual Appointment Date:02/08/2024 09:00:00 AM Scheduled Provider:LINNEA SILVERIO Location:[facility] Appointment Type:CV OV [facility] Evaluation + Plan note Future Appointments Appointment Date:01/01/2025 08:00:00 AM Scheduled Provider:REHANA CEJA Location:[facility] Appointment Type:PC Wellness Annual [facility] evaluation noteNo assessment information available [facility] Work Phone: evaluation note* Diagnosis Onset Date Resolution Status Recurrent right inguinal hernia acute [facility] Work Phone: Hospital course Narrative No data available for this section [facility] Discharge instructions No data available for this section [facility] Progress note No data available for this section [facility] Chief Complaint and Reason for Visit Chief Complaint ABD PAIN Chief Complaint ABD PAIN R Inguinal Hernia/ER F/U LAP ROBOTIC ING HERNIA MESH RT POSS BILAT LAP ROBOTIC ING HERNIA MESH RT POSS BILAT Reason for Visit Recurrent right ingu inal hernia Advance Directives No Advanced Directives Records Found Advance Directive Response Recorded Date/ Time Living Will No December 28 12:07pm Power of Employee Relations Advisor No December 28, 2021 12:07pm Advance Directive Response Recorded Date/ Time Living Will No February 11 1:58pm Power of Employee Relations Advisor No February 11, 2022 1:58pm Summary Purpose Family History No Family History Records Found Additional Source Comments Care Team (unrecognized sect ion and content) Care Team Personnel Name: BOB ROBERTSON APRN-BULLARD OPERATOR Position: P4 Advanced Practice Nurse Med Service: Active Provider Member Role: Primary Care Physician Address: Address: [address] [place] [address]- Care Team Related Persons Name: VELIA LEO Goals (unrecognized section and content) Goals may be documented in a n alternate section Patient Care team informatio n (unrecognized section and content) Care Team Personnel Name: BARRY KAHN MD Member Role: Orthopaedist Address: Address: [facility] [address] [address]- [place] Name: REHANA CEJA APRN-BULLARD OPERATOR Position: P4 Advanced Tar Heater Member Role: Primary Care Physician Address: Address: [address] [facility] [address] [facility] [place] [address]- [place] Name: YUMIKO SWAIN MD Position: P3 Physician - Urologist Member Role: Urologist Address: Address: [address] [place] [address] Care Team Related Persons Name: VELIA LEO Care Team Personnel Name: BARRY KAHN MD Member Role: Orthopaedist Address: Address: [address] [address]- [place] Name: REHANA CEJA APRN-BULLARD OPERATOR Position: P4 Advanced Tar Heater Member Role: Primary Care Physician Address: Address: [address] [place] [address]- [place] Name: YUMIKO SWAIN MD Position: P3 Physician - Urologist Member Role: Urologist Address: Address: [address] [address]- Care Team Related Persons Name: VELIA LEO Care Team Personnel Name: BARRY KAHN MD Member Role: Orthopaedist Address: Address: [place] [id number]- [place] Name: REHANA CEJA APRN-BULLARD OPERATOR Position: P4 Advanced Tar Heater Member Role: Primary Care Physician Address: Address: [address] [place] [address]- Name: YUMIKO SWAIN MD Position: P3 Physician - Urologist Member Role: Urologist Address: Address: [address] [place] [address]- Care Team Related Persons Name: VELIA LEO Care Team Personnel Name: BARRY KAHN MD Member Role: Orthopaedist Address: Address: [address] [address]- [place] Name: REHANA CEJA APRN-BULLARD OPERATOR Position: P4 Advanced Tar Heater Member Role: Primary Care Physician Address: Address: [address] [place] [address]- [place] Name: YUMIKO SWAIN MD Position: P3 Physician - Urologist Member Role: Urologist Address: Address: [address] [address]- [place] Care Team Related Persons Name: VELIA LEO Care Team Personnel Name: BARRY KAHN MD Member Role: Orthopaedist Address: Address: [address] [address]- [place] Name: REHANA CEJA APRN-BULLARD OPERATOR Position: P4 Advanced Tar Heater Member Role: Primary Care Physician Address: Address: [address] [place] [address]- Name: YUMIKO SWAIN MD Position: P3 Physician - Urologist Member Role: Urologist Address: Address: [address] [place] [address] Care Team Related Persons Name: AHMET VELIA Care Team Personnel Name: Tere House Position: Bed Management Member Role: Other Name: BARRY KAHN MD Member Role: Orthopaedist Address: Address: [place] [address]- Name: REHANA CEJABULLARD OPERATOR Position: P4 Advanced [employer] Member Role: Primary Care Physician Address: Address: [address] Name: YUMIKO SWAIN MD Position: P3 Physician - Urologist Member Role: Urologist Address: Address: [address] [place] [address] Care Team Related Persons Name: PORTER LEOE Care Team Personnel Name: Tere House Position: Bed Management Member Role: Other Name: BARRY KAHN MD Member Role: Orthopaedist Address: Address: [place] [address]- Name: REHANA CEJA Position: P4 Advanced [employer] Member Role: Primary Care Physician Address: Address: [address] [place] [address]- Name: YUMIKO SWAIN MD Position: P3 Physician - Urologist Member Role: Urologist Address: Address: [address] [place] [address]- Care Team Related Persons Name: VELIA LEO Care Team Personnel Name: Tere House Position: Bed Management Member Role: Other Name: BARRY KAHN MD Member Role: Orthopaedist Address: [place] [phone]- Telecom: Name: REHANA CEJABULLARD OPERATOR Position: P4 Advanced [employer] Member Role: Primary Care Physician Address: [address] [place] [address]- Telecom: Name: YUMIKO SWAIN MD Position: P3 Physician - Urologist Member Role: Urologist Address: [address] [place] [address] [address] [place] [address]- Telecom: Care Team Related Persons Name: VELIA LEO (unrecognized sect ion and content) No Status Records FoundNo Status Records FoundNo Status Records Found INFORMATION SOURCE (unrecogn ized section and content) DATE CREATED AUTHOR 10/27/2023 [facility] ([place] DATE CREATED AUTHOR AUTHOR'S ORGANIZ ATION 03/15/2024 [facility] DATE CREATED AUTHOR AUTHOR'S ORGANIZ ATION 05/09/2024 [facility] FOR RECORDS PERTAINING TO PATIENTS WHO [...] BE BASED ON THE PRIMARY CLINICAL RECORDS. [employer] [facility]. provides no warranty or guarantee of the accuracy or completeness of information in this document.
[2024-07-24 23:44] LABS: Bacteria 0 SEEN /hpf (None Seen); Mucous, Urine 0 SEEN /hpf (<or=2+); Red Blood Cells-Urine 0 SEEN /hpf (0-5); Squamous Epithelial Cells - UA 0 SEEN /hpf (0-5); White Blood Cells 0 SEEN /hpf (0-5)
[2024-07-24] MEDS: Potassium Chloride Oral Soln 20 MEQ/15 ML UDC 40 MEQ PO (23:45)
[2024-07-24 23:46] LABS: Color, Urine Yellow (Yellow); Glucose, Dipstick Normal (Normal); Ketone-Dipstick Negative (Negative); Leukocyte Esterase-Dipstick Negative /ul (Negative); Nitrite-Dipstick Negative (Negative); Occult Blood-Urine Negative /ul (Negative); Protein-Dipstick 15 mg/dl (Negative); Urine Bilirubin Dipstick Negative (Negative); Urine Clarity Clear (Clear); Urine Urobilinogen Normal (Normal); Urine pH 6.5 (5.0 - 8.0)
[2024-07-24 23:50] LABS: Magnesium 1.8 mg/dL (1.5-2.2)
[2024-07-25] VITALS (13 sets, daily range): BP systolic 111–141; BP diastolic 76–104; PULSE 63–88; RESP 12–21; TEMP 36.2–37.1; O2SAT 93–97; BMI 58.2
--- NOTE | 2024-07-25 01:44 | MRI_ITS ---
PROCEDURE: BRAIN WITHOUT CONTRAST 07/25/2024 REASON FOR EXAM: Transient confusion and headache. TECHNIQUE: Noncontrast brain MRI. Multiplanar and multisequence images were obtained. COMPARISON: CT brain without contrast and CTA head and neck with contrast, 07/24/2024. FINDINGS: There is a normal sulcal pattern and gyral configuration. There are few scattered foci of punctate periventricular and subcortical white matter signal in both cerebral hemispheres consistent with chronic ischemic white matter disease. Hypertension could cause a similar appearance. There is no evidence of acute intracranial hemorrhage or infarction. The diamond-white differentiation is well preserved. There is no evidence of restricted diffusion. The ventricles and basilar cisterns are normal. There are normal flow voids demonstrated in the recognized intracranial vessels. The cerebellum and brainstem are unremarkable. The cerebellar pontine angles are normal. The craniovertebral junction is normal. The sella and suprasellar regions are normal. The orbits and retro-orbital regions are unremarkable. There is nasal septal deviation to the left. There is a left-sided nasal spur. The paranasal sinuses are clear. The mastoid air cells are clear. There is a bone cyst in the right parietal bone near the vertex. There is normal bone marrow signal in the skull base and calvarium. MRI/Brain without Contrast IMPRESSION: 1. Few foci of abnormal subcortical and periventricular white matter signal in the cerebral hemispheres. Nonspecific but consistent with chronic ischemic white matter disease. 2. Other findings as noted. Reading Location: [id number]
--- NOTE | 2024-07-25 01:44 | ECHOD_ITS ---
Reason For Study Reason For Study: TIA/CVA Procedure This was a 2D Doppler, Color Flow transthoracic echocardiogram. Exam performed portable in ICU/CCU. Left Ventricle Normal size and thickness. The LV systolic function is normal. EF is 65 %. LV filling pattern indicates impaired relaxation. Right Ventricle Normal right ventricle. Atria The left and right atria are normal. Bubble contrast study is negative for PFO/ASD. Mitral Valve Trivial mitral valve insufficiency. Tricuspid Valve Trivial tricuspid valve insufficiency. Normal pulmonary artery pressure. Aortic Valve Trisinus/trileaflet aortic valve. Mild diffuse aortic valve thickening. There is no aortic stenosis. No aortic valve insufficiency. Pulmonic Valve The pulmonic valve is not well visualized. Great Vessels Normal sized aortic root. Pericardium/Pleural No pericardial effusion. Medication Performed a rapid injection of agitated mix of 9 cc saline and 1cc air to assess for atrial septal defect. X 2. MMode/2D Measurements & Calculations LVIDd: 5.2 cm IVSd: 1.0 cm Ao root diam: 3.3 cm LVIDs: 3.0 cm LVPWd: 1.0 cm RVDd: 3.1 cm FS: 41.7 % asc Aorta Diam: 3.8 cm LAV(MOD-bp): 48.1 ml LVAd ap4: 30.3 cm2 LAV(MOD-bp) Indexed: 26.0 ml/m2 LVLd ap4: 8.8 cm LAV(MOD-sp2): 52.2 ml EDV(MOD-sp4): 90.8 ml LAV(MOD-sp4): 41.6 ml EDV(sp4-el): 88.4 ml LVAs ap4: 18.0 cm2 LVLs ap4: 7.7 cm ESV(MOD-sp4): 37.0 ml ESV(sp4-el): 35.9 ml EF(MOD-sp4): 59.2 % EF(sp4-el): 59.4 % LVAd ap2: 24.6 cm2 SV(MOD-sp4): 53.7 ml SV(MOD-sp2): 37.6 ml LVLd ap2: 8.6 cm SI(MOD-sp4): 29.1 ml/m2 SI(MOD-sp2): 20.3 ml/m2 EDV(MOD-sp2): 61.1 ml EDV(sp2-el): 60.0 ml LVAs ap2: 13.9 cm2 LVLs ap2: 7.0 cm ESV(MOD-sp2): 23.6 ml ESV(sp2-el): 23.5 ml EF(MOD-sp2): 61.4 % SV(sp4-el): 52.5 ml LA dimension(2D): 3.7 cm LA A4 area: 16.5 cm2 RA A4 area: 14.0 cm2 TAPSE: 1.8 cm Time Measurements MV dec time: 0.19 sec Doppler Measurements & Calculations MV E max oumar: 58.9 cm/sec Lat Peak E' Oumar: 16.1 cm/sec Med Peak E' Oumar: 9.4 cm/sec MV A max oumar: 79.6 cm/sec E/E' lat: 3.6 E/E' med: 6.3 MV E/A: 0.74 MV V2 max: 79.3 cm/sec MV P1/2t max oumar: 69.5 cm/sec Ao V2 max: 115.7 cm/sec MV max P.5 mmHg MV P1/2t: 59.5 msec Ao max P.4 mmHg MV V2 mean: 44.0 cm/sec Ao V2 mean: 73.0 cm/sec MV mean P.88 mmHg MV dec slope: 341.7 cm/sec2 Ao mean P.4 mmHg MV V2 VTI: 20.5 cm MVA(P1/2t): 3.7 cm2 Ao V2 VTI: 20.3 cm AV (velocity ratio): 0.77 LV V1 max: 91.0 cm/sec PA V2 max: 102.5 cm/sec TR max oumar: 214.9 cm/sec LV V1 max P.3 mmHg PA V2 mean: 71.4 cm/sec TR max P.5 mmHg LV V1 mean P.6 mmHg LV V1 mean: 60.5 cm/sec LV V1 VTI: 15.6 cm ECHO/Echo Complete Interpretation Summary The LV systolic function is normal. EF is 65 %. LV filling pattern indicates impaired relaxation. Bubble contrast study is negative for PFO/ASD. Mild diffuse aortic valve thickening. Ordering Physician: Ileana Minaya Referring Physician: Rehana Ceja Performed By: Kaylie Ramirez, YANICK, RVT
[2024-07-25] MEDS: 0.9% Normal Saline (1000mL) 1,000 ML 100 ML IV (02:06)
[2024-07-25] MEDS: Acetaminophen 325 MG Tablet 650 MG PO ×2 (02:13→18:21)
[2024-07-25 05:01] LABS: Absolute Lymphocyte Count 1.58 X10^3/uL (0.83-4.51); Absolute Neutrophil Count 4.5 X10^3/uL (2.0-7.7); Basophil# 0.04 X10^3/uL; Basophil% 0.6 % (0-1); Eosinophil# 0.14 X10^3/uL; Eosinophils% 2.1 % (0-5); Hematocrit 40.4 % (40-54); Hemoglobin 14.1 g/dL (13.0-16.5); Lymphocyte # 1.58 X10^3/ul (0.83-4.51); Lymphocyte % 23.5 % (19-41); Mean Corp Hgb Conc 34.9 g/dL (32-36); Mean Corpuscular Hgb 30.7 pg (27.0-32.0); Monocyte% 7.4 % (0-10); NRBC Flagged by Analyzer 0 % (0-5); Neutrophil # 4.45 X10^3/uL (2.7-7.7); Neutrophil % 66.1 % (47-70); Platelet Count 276 K/mm3 (150-450); RBC Distribution Width CV 11.9 % (11.6-14.6); RBC Distribution Width SD 38.2 fl (35.1-43.9); Red Blood Count 4.59 M/mm3 (4.6-6.2); White Blood Count 6.7 K/mm3 (4.4-11.0)
[2024-07-25 05:49] LABS: ALB/GLOB Ratio 1.7 RATIO (0.9-2.4); AST(SGOT) 24 U/L (<=37); Alanine Aminotransfer ALT/SGPT 20 U/L (<=46); Albumin, Serum 3.7 g/dL (3.5-5.0); Alkaline Phosphatase 65 U/L (40-129); Anion Gap 10 (5-15); BUN 8 mg/dL (4-19); BUN/Creat Ratio 11.4 RATIO (10-20); Calcium,Total 8.7 mg/dL (7.6-11.0); Carbon Dioxide 20.4 mmol/L (21.0-32.0); Chloride 109 mmol/L (98-108); Cholesterol 123 mg/dL (<=200); Creatinine, Serum 0.66 mg/dL (0.70-1.20); EST Glomerular Filtration Rate 108 (>60); Estimated Creatinine Clearance 176.86 ml/min (50-250); Globulin 2.1 g/dL (2.2-4.2); Glucose 97 mg/dL (70-99); High Density Lipoprotein 57 mg/dL; Low Density Lipoprotein Calc. 54 mg/dL; Potassium 3.9 mmol/L (3.3-5.1); Protein, Total 5.8 g/dL (5.9-8.4); Sodium Level 139 mmol/L (133-145); Total Bilirubin 0.99 mg/dL (0.00-1.30); Triglycerides 62 mg/dL; Very Low Density Lipoprotein 12 mg/dL (5-40); cholesterol:hdl ratio screen 2.16
--- NOTE | 2024-07-25 07:06 | PCM.PN.HOSP ---
Reason for Visit Reason for Visit: Diagnoses Transient cerebral ischemic attack, unspecified (07/24/24) Subjective Subjective Feels well. Had no prodrome, but awoke and had sided paresthesias. Objective Data Objective Data Vital Signs: Vital Signs Temp Pulse Resp BP Pulse Ox O2 Del Method 36.4 C L 66 13 111/76 97 Room Air 07/25/24 06:00 07/25/24 06:00 07/25/24 06:00 07/25/24 06:00 07/25/24 06:00 07/25/24 06:00 Oxygen Delivery Method Room Air Weight: 163.7 kg Body Mass Index (BMI) 58.2 Intake & Output: Intake and Output for Last 24 Hours 07/23/24 07/24/24 07/25/24 23:59 23:59 23:59 Intake Total 1000 / 1000 Balance 1000 / 1000 Lab / Micro Data 07/25/24 04:20 07/25/24 04:20 Labs: Laboratory Results - last 24 hr 07/24/24 21:15: WBC 7.4, RBC 4.96, Hgb 15.2, Hct 42.9, MCV 86.5, MCH 30.6, MCHC 35.4, RDW Std Deviation 37.2, RDW Coeff of Jefferson 11.8, Plt Count 326, MPV 8.8, Immature Gran % (Auto) 0.700, Neut % (Auto) 75.1 H, Lymph % (Auto) 17.2 L, Harney % (Auto) 5.5, Eos % (Auto) 1.1, Baso % (Auto) 0.4, Absolute Neuts (auto) 5.6, Absolute Lymphs (auto) 1.27, Nucleated RBC % 0, PT 14.3, INR 1.1, APTT 27.5, Sodium 139, Potassium 3.2 L, Chloride 105, Carbon Dioxide 19.1 L, Anion Gap 15, BUN 9, Creatinine 0.83, Estim Creat Clear Calc 86.48, Est GFR (MDRD) Non-Af 101, BUN/Creatinine Ratio 10.6, Glucose 157 H, Calcium 9.2, Magnesium 1.8, Troponin T High Sens 7 07/24/24 23:36: Urine Color Yellow, Urine Clarity Clear, Urine pH 6.5, Ur Specific [place] 1.010, Urine Protein 15 H, Urine Glucose (UA) Normal, Urine Ketones Negative, Urine Occult Blood Negative, Urine Nitrite Negative, Urine Bilirubin Negative, Urine Urobilinogen Normal, Ur Leukocyte Esterase Negative, Urine RBC 0 SEEN, Urine WBC 0 SEEN, Ur Squamous Epith Cells 0 SEEN, Urine Bacteria 0 SEEN, Urine Mucus 0 SEEN 07/25/24 04:20: WBC 6.7, RBC 4.59 L, Hgb 14.1, Hct 40.4, MCV 88.0, MCH 30.7, MCHC 34.9, RDW Std Deviation 38.2, RDW Coeff of Jefferson 11.9, Plt Count 276, MPV 9.0, Immature Gran % (Auto) 0.300, Neut % (Auto) 66.1, Lymph % (Auto) 23.5, Harney % (Auto) 7.4, Eos % (Auto) 2.1, Baso % (Auto) 0.6, Absolute Neuts (auto) 4.5, Absolute Lymphs (auto) 1.58, Nucleated RBC % 0, Sodium 139, Potassium 3.9, Chloride 109 H, Carbon Dioxide 20.4 L, Anion Gap 10, BUN 8, Creatinine 0.66 L, Estim Creat Clear Calc 176.86, Est GFR (MDRD) Non-Af 108, BUN/Creatinine Ratio 11.4, Glucose 97, Calcium 8.7, Total Bilirubin 0.99, AST 24, ALT 20, Alkaline Phosphatase 65, Total Protein 5.8 L, Albumin 3.7, Globulin 2.1 L, Albumin/Globulin Ratio 1.7, Triglycerides 62, Cholesterol 123, LDL Cholesterol, Calc 54, VLDL Cholesterol 12, HDL Cholesterol 57, Cholesterol/HDL Ratio 2.16, TSH 1.740 Radiography Diagnostic Testing: Radiology Impression Brain CT 07/24/24 21:43 IMPRESSION: No acute intracranial abnormality. Reading Location: [id number] Head/Neck CTA 07/24/24 21:43 IMPRESSION: No acute arterial abnormality of the head or neck. Reading Location: [id number] Chest X-Ray 07/24/24 22:10 IMPRESSION: No acute cardiopulmonary abnormality. Reading Location: [facility] Physical Exam Const alert and no apparent distress HEENT head/scalp atraumatic Resp normal respiratory effort and no retractions Extremity normal to inspection Neuro Sensorium / Orientation: awake and alert Psych affect normal Assessment & Plan Assessment/Plan (1) Amnesia: PLAN: etiology: TIA/CVA v seizure v syncope MRI brain showed few foci of abnormal subcortical and periventricular white matter signal in the cerebral hemispheres. Orthostatic vitals negative Echo shows an EF 65%. No PFO/ASD EEG pending Neuro consult PLAN: Plan VTE prophylaxis: LMWH. Charges/Coding Visit Charges Inpatient E&M: 58953 Subs Hosp L2 NIHSS NIHSS Nursing Documentation NIHSS Nursing Documentation: NIHSS: Ischemic Stroke/TIA Start: 07/25/24 01:44 Text: For PCU Patients: NIH and Neuro Check every 4 Status: Active hours, PRN and with change in RN caregiver. Freq: [id number] Protocol: Activity Type Activity Date Activity User E-sign Co-sign Detail Recorded Client Recorded Date Recorded By Document 07/25/24 06:00 [facility] [place] [id number] 07/25/24 06:28 [facility] [place] 07/25/24 06:00 NIH Stroke Scale [NIHSS] A score of 0 is normal or asymptomatic . Total possible score is 42. Inpatient: RN or Physician to activate a stroke alert for onset of new stroke symptoms or with NIHSS increase >/= 3 points. Following change in neurological status, NIHSS will be performed per physician order or more frequently PRN. -1a. Level of Consciousness 0 - Alert; keenly responsive -1b. LOC Questions 0 - Answers BOTH questions correctly -1c. LOC Commands 0 - Performs BOTH tasks correctly -2. Best Gaze 0 - Normal -3. Visual 0 - No visual loss -4. Facial Palsy 0 - Normal symmetrical movements -5a. Left Arm 0 - No drift; arm holds 90 ( or 45) degrees for full 10 seconds -5b. Right Arm 0 - No drift; arm holds 90 ( or 45) degrees for full 10 seconds -6a. Left Leg 0 - No drift; leg holds 30- degree position for full 5 seconds -6b. Right Leg 0 - No drift; leg holds 30- degree position for full 5 seconds -7. Limb Ataxia 0 - Absent -8. Sensory 0 - Normal; no sensory loss -9. Best Language 0 - No aphasia; normal -10. Dysarthria 0 - Normal -11. Extinction and Inattention 0 - No abnormality -Total 0 Query Text:A score of 0 is normal or asymptomatic. Total possible score is 42 . ED: Notify Physician for NIHSS increase by > / = 3 points. Inpatient: RN or Physician to activate a stroke alert for NIHSS increase of > / = 3 points.
[2024-07-25 07:44] LABS: Hemoglobin A1c 5.6 % (<=5.6)
[2024-07-25 08:56] LABS: Troponin T High Sensitivity 11 ng/L (<=22)
[2024-07-25] MEDS: Enoxaparin 40 MG/0.4 ML Syringe SC (11:06)
[2024-07-25] MEDS: Aspirin E.C. 81 MG Tablet PO (11:07)
--- NOTE | 2024-07-25 11:16 | NURSING ---
NIH and stroke VS delayed due to pt being in MRI. Pt returned to floor at 1110
--- NOTE | 2024-07-25 11:48 | CPS ---
11am I.S./PEP round- Pt out of bed and walking the unit with therapy on room air.
--- NOTE | 2024-07-25 13:38 | NEURO.CONS ---
Assessment and Plan: Neuro Assessment/Plan TEODORA LEO is a 59 M with a past medical history of HLD, HTN, being evaluated by Teleneurology for transient episodes of confusion, L sided numbness, and dizziness. At this time the history is nonspecific but given the transient episodes, concern for TIA. Seizure cannot be ruled out but believe this is less likely. Exam is nonfocal. Imaging relatively benign. - Anti-platelet medication: Plavix 300mg once and ASA 81mg + Plavix 75mg x 21 days, then ASA 81mg daily - DVT prophylaxis with SCDs and heparin SQ - recommend 30 day holter monitor after discharge - Vascular risk factor modification. The following are the recommended guidelines: LDL Goal < 70 Smoking Cessation Diabetes Management correction blood pressure control should achieve <130/80 mmHg. BP management should aim to achieve chcf contorl in a reasonable amount of time, taking into consideration the individual patient's requirements and characteristics. Weight Management: Goal for BMI is 18.5 -24.9 kg/m2 Alcohol: No more than 2 drinks/day for men or 1 drink/day for non- women - Promote lifestyle modification: weight control, physical activity, moderation of alcohol intake, moderate sodium intake. I personally attended this patient and spent a total time of minutes evaluating this patient including clinical assessment, review of chart, medical history imaging, and determining appropriate treatment and workup. HPI Consult Data Date of Consult: 07/25/24 HPI Narrative HPI Narrative: The patient is a 59 y/o M w/ PMHx: Chew tobacco use, Chronic anemia/Fe deficiency anemia, GERD, HTN, HLD, RLS, Migraine headaches who presents to the [facility] ED with history at approximately 7 PM of complete amnesia lasting 15-30 seconds with complete resolution following however he also notes that he had mild dizziness on Tuesday which required him to lay down to avoid passing out prompting PCP evaluation who arrange outpatient evaluation. Patient had similar episode of confusion that was very short-lived on 07/14/2024 with memory resolution completely following. He does state some discomfort to the left shoulder and does have some mild altered sensation to the left shoulder focally as well as occasionally his left cheek. Currently he notes complete resolution of all symptoms. He currently denies any lightheadedness or dizziness. Workup in the ED included T97.5, heart 92, BP 130/102, respiratory rate 18, 100 % room air, CBC with WBC 7.4, he 1 15.2, platelet 326 without marked shift, unremarkable coags, BMP with potassium 3.2, carbon oxide 19.1, glucose 157, troponin 7, CT of the brain with no acute intracranial findings, CTA head and neck with no acute abnormalities, chest x-ray with no acute cardiopulmonary findings, EKG with SR without evidence of acute ischemia. In the ED patient ministered 1 L normal saline and potassium 40 mg p.o. x 1. UA pending upon evaluation. Neurologic History First episode of dizziness (lightheadedness) was on Tuesday and lay down and he could not remember what he did before the dizziness. Yesterday had event while driving and could not remember where he was going and what he was doing. Then he continued driving as he felt better. No dizziness with that episode. The numbness happened after patient came to the hospital (had tingling in the finger and L leg). Never had memory loss like that before. Lightheadedness yesterday happened during the episode of memory loss. the numbness lasted < 1 hr. Never had this happen, never had stroke before. Never had heart problems. No stopped or changed medications recently. No change in diet or exercise recently.BP normally in 120s. Neurologic Ecam -? General: Laying comfortably in bed; in no acute distress. -? HENT: Normal oropharynx and mucosa. Normal external appearance of ears and nose. Exophthalmos. -? Neck: Supple, no pain or tenderness -? CV:? No peripheral edema. -? Pulmonary:? Normal respiratory effort. -? Ext: No cyanosis, edema, or deformity -? Skin: No rash. Normal palpation of skin.? -? Musculoskeletal: full range of motion; no joint tenderness. Normal digits and nails by inspection. No clubbing. -? NEURO: -? Mental Status: The patient was alert and oriented to time, place, and person. Normal recent/remote memory, concentration, and general fund of knowledge. -? Language: speech is clear.? Naming, repetition, fluency, and comprehension intact. -? Cranial Nerves: PERRL 3 mm/brisk. EOMI, visual duckworth full, no facial asymmetry, facial sensation intact, hearing intact, tongue midline, no evidence of atrophy or fibrillations. -? Motor: normal bulk, tone, and strength throughout. No pronator drift or satelliting. Upper and lower extremities equal bilaterally. -? Detailed strength exam as performed by the nurse/SIMONA and witnessed by the physician: R L SA 5 5 EE EF 5 5 WE WF Hand Outside Cutter 5 5 HF KE KF 5 5 DF 5 5 PF -? Tone: is normal and bulk is normal -? Sensation- Intact to light touch bilaterally -? Coordination: No dysmetria on [id number], finger follow finger or [id number]. -? Gait- Gait initiation was normal. Narrow base with good heel strike and stride length was observed during ambulation. Turns were in stride. Patient was able to walk normally in tandem. Romberg was normal. PFSH Medical History Left carpal tunnel syndrome Bilateral knee pain Former smoker Obesity (BMI 30.0-34.9) Incisional hernia Hypokalemia Atypical chest pain Iron deficiency anemia Elevated PSA GERD (gastroesophageal reflux disease) Essential (primary) hypertension Lightheadedness SOB (shortness of breath) Osteoarthritis of left knee Left knee pain Arthritis Restless legs Migraine headache Chewing tobacco nicotine dependence Home Medications ?Medication ?Instructions ?Recorded ?Last Taken ?Type amlodipine 5 mg tablet 5 mg PO DAILY 30 days #30 tabs 11/10/23 Unknown Rx aspirin 81 mg tablet,delayed 81 mg PO BREAKFAST 90 days #90 tabs 11/10/23 Unknown Rx release atorvastatin 10 mg tablet 10 mg PO QHS 90 days #90 tabs 11/10/23 Unknown Rx metoprolol succinate 25 mg 25 mg PO DAILY 07/24/24 Unknown History tablet,extended release 24 hr Allergy/AdvReac Type Severity Reaction Status Date / Time shellfish derived Allergy Anaphylaxis Verified 07/24/24 21:03 Family History Mother Heart disease Diabetes Hypertension Father Cancer Kidney disease Heart disease Surgical History Hx of appendectomy Hx of arthroscopy of shoulder Hx of inguinal hernia repair H/O hand surgery Social History household members: spouse Smoking Status: Unknown if ever smoked Smokeless tobacco user: chewing tobacco alcohol intake: never substance use type: does not use Vital Signs Vital Signs Vital Signs: 07/24/24 21:03 07/24/24 23:02 07/24/24 23:39 Temperature 97.5 F L 97.7 F L Temperature Source Temporal Pulse Rate 92 82 76 Pulse Strength Respiratory Rate 18 20 H 15 Blood Pressure 130/102 H 124/92 H 124/92 H Blood Pressure [Lying] Blood Pressure [Sitting (for 1 minute prior to obtaining)] Blood Pressure [Standing (for 1 minute prior to obtaining)] Blood Pressure Mean 111 102 102 Blood Pressure Mean [Lying] Blood Pressure Mean [Sitting (for 1 minute prior to obtaining)] Blood Pressure Mean [Standing (for 1 minute prior to obtaining)] Blood Pressure Source Blood Pressure Position Blood Pressure Location Pulse Ox 100 96 93 Oxygen Delivery Method Room Air 07/25/24 01:00 07/25/24 01:44 07/25/24 01:45 Temperature 97.7 F L Temperature Source Temporal Pulse Rate 76 63 Pulse Strength Respiratory Rate 19 H 12 Blood Pressure 131/94 H 127/86 H Blood Pressure [Lying] 119/92 H Blood Pressure [Sitting (for 1 minute prior to obtaining)] 121/98 H Blood Pressure [Standing (for 1 minute prior to obtaining)] 118/91 H Blood Pressure Mean 106 99 Blood Pressure Mean [Lying] 101 Blood Pressure Mean [Sitting (for 1 minute prior to obtaining)] 105 Blood Pressure Mean [Standing (for 1 minute prior to obtaining)] 100 Blood Pressure Source Monitor Blood Pressure Position Supine Blood Pressure Location Right Arm Pulse Ox 93 97 Oxygen Delivery Method Room Air 07/25/24 02:00 07/25/24 06:00 07/25/24 07:00 Temperature 97.7 F L 97.6 F L Temperature Source Temporal Temporal Pulse Rate 72 66 69 Pulse Strength Respiratory Rate 18 13 Blood Pressure 118/91 H 111/76 Blood Pressure [Lying] Blood Pressure [Sitting (for 1 minute prior to obtaining)] Blood Pressure [Standing (for 1 minute prior to obtaining)] Blood Pressure Mean 100 87 Blood Pressure Mean [Lying] Blood Pressure Mean [Sitting (for 1 minute prior to obtaining)] Blood Pressure Mean [Standing (for 1 minute prior to obtaining)] Blood Pressure Source Monitor Monitor Blood Pressure Position Semi-Fowlers Semi-Fowlers Blood Pressure Location Right Arm Right Arm Pulse Ox 97 97 Oxygen Delivery Method Room Air Room Air 07/25/24 07:22 07/25/24 10:00 07/25/24 11:13 Temperature 98.7 F Temperature Source Temporal Pulse Rate 63 Pulse Strength Normal (2+) Respiratory Rate 16 Blood Pressure 122/85 H Blood Pressure [Lying] Blood Pressure [Sitting (for 1 minute prior to obtaining)] Blood Pressure [Standing (for 1 minute prior to obtaining)] Blood Pressure Mean 97 Blood Pressure Mean [Lying] Blood Pressure Mean [Sitting (for 1 minute prior to obtaining)] Blood Pressure Mean [Standing (for 1 minute prior to obtaining)] Blood Pressure Source Monitor Blood Pressure Position Supine Blood Pressure Location Right Arm Pulse Ox 97 96 Oxygen Delivery Method Room Air Room Air 07/25/24 11:34 Temperature Temperature Source Pulse Rate 77 Pulse Strength Respiratory Rate Blood Pressure Blood Pressure [Lying] Blood Pressure [Sitting (for 1 minute prior to obtaining)] Blood Pressure [Standing (for 1 minute prior to obtaining)] Blood Pressure Mean Blood Pressure Mean [Lying] Blood Pressure Mean [Sitting (for 1 minute prior to obtaining)] Blood Pressure Mean [Standing (for 1 minute prior to obtaining)] Blood Pressure Source Blood Pressure Position Blood Pressure Location Pulse Ox Oxygen Delivery Method Weight Weight: 163.7 kg Body Mass Index (BMI) 58.2 EEG Results Procedure Details EEG Procedure Details: TEODORA LEO is a 59 year old M with a past medical history of , who presents for evaluation of Electroencephalogram on DATE at TIME Lab / Micro Data 07/25/24 04:20 07/25/24 04:20 Labs: Laboratory Results - last 24 hr 07/24/24 21:15: WBC 7.4, RBC 4.96, Hgb 15.2, Hct 42.9, MCV 86.5, MCH 30.6, MCHC 35.4, RDW Std Deviation 37.2, RDW Coeff of [place] 11.8, Plt Count 326, MPV 8.8, Immature Gran % (Auto) 0.700, Neut % (Auto) 75.1 H, Lymph % (Auto) 17.2 L, [place] % (Auto) 5.5, Eos % (Auto) 1.1, Baso % (Auto) 0.4, Absolute Neuts (auto) 5.6, Absolute Lymphs (auto) 1.27, Nucleated RBC % 0, PT 14.3, INR 1.1, APTT 27.5, Sodium 139, Potassium 3.2 L, Chloride 105, Carbon Dioxide 19.1 L, Anion Gap 15, BUN 9, Creatinine 0.83, Estim Creat Clear Calc 86.48, Est GFR (MDRD) Non-Af 101, BUN/Creatinine Ratio 10.6, Glucose 157 H, Calcium 9.2, Magnesium 1.8, Troponin T High Sens 7 07/24/24 23:36: Urine Color Yellow, Urine Clarity Clear, Urine pH 6.5, Ur Specific [place] 1.010, Urine Protein 15 H, Urine Glucose (UA) Normal, Urine Ketones Negative, Urine Occult Blood Negative, Urine Nitrite Negative, Urine Bilirubin Negative, Urine Urobilinogen Normal, Ur Leukocyte Esterase Negative, Urine RBC 0 SEEN, Urine WBC 0 SEEN, Ur Squamous Epith Cells 0 SEEN, Urine Bacteria 0 SEEN, Urine Mucus 0 SEEN 07/25/24 04:20: WBC 6.7, RBC 4.59 L, Hgb 14.1, Hct 40.4, MCV 88.0, MCH 30.7, MCHC 34.9, RDW Std Deviation 38.2, RDW Coeff of [place] 11.9, Plt Count 276, MPV 9.0, Immature Gran % (Auto) 0.300, Neut % (Auto) 66.1, Lymph % (Auto) 23.5, [place] % (Auto) 7.4, Eos % (Auto) 2.1, Baso % (Auto) 0.6, Absolute Neuts (auto) 4.5, Absolute Lymphs (auto) 1.58, Nucleated RBC % 0, Sodium 139, Potassium 3.9, Chloride 109 H, Carbon Dioxide 20.4 L, Anion Gap 10, BUN 8, Creatinine 0.66 L, Estim Creat Clear Calc 176.86, Est GFR (MDRD) Non-Af 108, BUN/Creatinine Ratio 11.4, Glucose 97, Hemoglobin A1c 5.6, Calcium 8.7, Total Bilirubin 0.99, AST 24, ALT 20, Alkaline Phosphatase 65, Troponin T High Sens 11 D, Total Protein 5.8 L, Albumin 3.7, Globulin 2.1 L, Albumin/Globulin Ratio 1.7, Triglycerides 62, Cholesterol 123, LDL Cholesterol, Calc 54, VLDL Cholesterol 12, HDL Cholesterol 57, Cholesterol/HDL Ratio 2.16, TSH 1.740 Imaging Radiology Impression Brain CT 07/24/24 21:43 IMPRESSION: No acute intracranial abnormality. Reading Location: [place] [id number] Head/Neck CTA 07/24/24 21:43 IMPRESSION: No acute arterial abnormality of the head or neck. Reading Location: [place] [address] Chest X-Ray 07/24/24 22:10 IMPRESSION: No acute cardiopulmonary abnormality. Reading Location: [id number] Brain MRI 07/25/24 01:44 IMPRESSION: 1. Few foci of abnormal subcortical and periventricular white matter signal in the cerebral hemispheres. Nonspecific but consistent with chronic ischemic white matter disease. 2. Other findings as noted. Reading Location: [id number] Echocardiogram 07/25/24 01:44 Interpretation Summary The LV systolic function is normal. EF is 65 %. LV filling pattern indicates impaired relaxation. Bubble contrast study is negative for PFO/ASD. Mild diffuse aortic valve thickening. Ordering Physician: Ileana Minaya Referring Physician: Rehana Ceja Performed By: Kaylie Ramirez, RDCS, RVT Active Medications Active Medications Active Medications: Current Medications Generic Name Dose Route Start Last Admin Trade Name Freq PRN Reason Stop Dose Admin Acetaminophen 650 mg 07/25/24 01:44 07/25/24 02:13 Acetaminophen 325 Mg Tablet PO 650 mg Q4H PRN PRN Administration Fever, pain 1-11/30 Al Hydroxide/Mg Hydroxide 30 ml 07/25/24 01:44 Mag Hydrox/Al Hydrox/Simeth 30 Ml Udc PO Q6H PRN PRN Gastric Burning Albuterol Sulfate 2.5 mg 07/25/24 01:44 Albuterol 2.5 Mg/3 Ml Vial.Neb. INHALATION Q2H PRN PRN Dyspnea, wheezing Aspirin 81 mg 07/25/24 08:00 07/25/24 11:07 Aspirin E.C. 81 Mg Tablet PO 81 mg BREAKFAST JAMIE Administration Atorvastatin Calcium 10 mg 07/25/24 22:00 Atorvastatin Calcium 10 Mg Tablet PO QHS JAMIE Enoxaparin Sodium 40 mg 07/25/24 10:00 07/25/24 11:06 Enoxaparin 40 Mg/0.4 Ml Syringe SC 40 mg DAILY JAMIE Administration Guaifenesin 20 ml 07/25/24 01:44 Guaifenesin 10 Ml Udc (200mg/10ml) PO Q4H PRN PRN COUGH Hydralazine HCl 5 mg 07/25/24 01:44 Hydralazine 20 Mg/Ml Vial IV 07/26/24 01:44 Q30M PRN maintain BP parameters with HR <60 Sodium Chloride 250 mls @ 15 mls/hr 07/25/24 02:26 IV .[id number] PRN Saline Flush Sodium Chloride 250 mls @ 15 mls/hr 07/25/24 02:26 IV .[id number] PRN Additional IVPB Infusion Labetalol HCl 10 - 20 mg 07/25/24 01:44 Labetalol 20 Mg/4 Ml Vial IV 07/26/24 01:44 Q10M PRN PRN maintain BP parameters with HR >/=60 Melatonin 3 mg 07/25/24 01:44 Melatonin 3 Mg Tablet PO QHS PRN PRN INSOMNIA Nicotine Polacrilex 2 mg 07/25/24 01:44 Nicotine Polacrilex 2 Mg Gum PO Q2H PRN PRN Nicotine Craving Ondansetron HCl 4 mg 07/25/24 01:44 Ondansetron 4 Mg/2 Ml Vial IV Q8H PRN PRN NAUSEA/VOMITING Prochlorperazine Edisylate 5 mg 07/25/24 01:44 Prochlorperazine 10 Mg/2 Ml Vial IV Q4H PRN PRN Breakthrough Nausea/Vomiting Senna/Docusate Sodium 2 tablet 07/25/24 01:44 Senna/Docusate Sodium 1 Tablet PO BID PRN PRN Constipation Sodium Chloride 10 - 40 ml 07/25/24 02:26 0.9% Saline Lock 10 Ml Syringe IV UD PRN SALINE FLUSH NIHSS NIHSS Nursing Documentation NIHSS Nursing Documentation: NIHSS: Ischemic Stroke/TIA Start: 07/25/24 01:44 Text: For PCU Patients: NIH and Neuro Check every 4 Status: Active hours, PRN and with change in RN caregiver. Freq: [id number] Protocol: Activity Type Activity Date Activity User E-sign Co-sign Detail Recorded Client Recorded Date Recorded By Document 07/25/24 11:16 CD [id number] 07/25/24 11:17 CD 07/25/24 11:16 NIH Stroke Scale [NIHSS] A score of 0 is normal or asymptomatic . Total possible score is 42. Inpatient: RN or Physician to activate a stroke alert for onset of new stroke symptoms or with NIHSS increase >/= 3 points. Following change in neurological status, NIHSS will be performed per physician order or more frequently PRN. -1a. Level of Consciousness 0 - Alert; keenly responsive -1b. LOC Questions 0 - Answers BOTH questions correctly -1c. LOC Commands 0 - Performs BOTH tasks correctly -2. Best Gaze 0 - Normal -3. Visual 0 - No visual loss -4. Facial Palsy 0 - Normal symmetrical movements -5a. Left Arm 0 - No drift; arm holds 90 ( or 45) degrees for full 10 seconds -5b. Right Arm 0 - No drift; arm holds 90 ( or 45) degrees for full 10 seconds -6a. Left Leg 0 - No drift; leg holds 30- degree position for full 5 seconds -6b. Right Leg 0 - No drift; leg holds 30- degree position for full 5 seconds -7. Limb Ataxia 0 - Absent -8. Sensory 1 - Mild-to- moderate sensory loss; -9. Best Language 0 - No aphasia; normal -10. Dysarthria 0 - Normal -11. Extinction and Inattention 0 - No abnormality -Total 1 Query Text:A score of 0 is normal or asymptomatic. Total possible score is 42 . ED: Notify Physician for NIHSS increase by > / = 3 points. Inpatient: RN or Physician to activate a stroke alert for NIHSS increase of > / = 3 points.
--- NOTE | 2024-07-25 14:35 | CASEMGMT ---
Social Work SW received referral for advance directives. Pt states that he has completed directives, but needs them to be notarized. SW explained that SW at [facility] can assist pt with completing documents. Pt appreciative of information but plans to have them notarized upon discharge. EFREN provided advance directive rack card. BRIDGER Chen
--- NOTE | 2024-07-25 14:39 | CASEMGMT ---
Social Work Pt negative for TIA, therefore PHQ9 not completed. Marjorie Christine, CUSTOMER SERVICE ANALYST
[2024-07-25] MEDS: Atorvastatin Calcium 10 MG Tablet PO (20:28)
[2024-07-26 00:21] VITALS: BMI 58.2
[2024-07-26 02:30] VITALS: BP 98/69; PULSE 73; RESP 13; TEMP 36.6; O2SAT 95
[2024-07-26 06:00] VITALS: BMI 26.1
[2024-07-26 07:00] VITALS: PULSE 62
--- NOTE | 2024-07-26 07:15 | PCM.PN.HOSP ---
Reason for Visit Reason for Visit: Diagnoses Transient cerebral ischemic attack, unspecified (07/24/24) Other amnesia (07/24/24) Subjective Subjective Feels good. No events overnight. Objective Data Objective Data Vital Signs: Vital Signs Temp Pulse Resp BP Pulse Ox O2 Del Method 36.6 C 73 13 98/69 95 Room Air 07/26/24 02:30 07/26/24 02:30 07/26/24 02:30 07/26/24 02:30 07/26/24 02:30 07/26/24 02:30 Oxygen Delivery Method Room Air Weight: 73.709 kg Body Mass Index (BMI) 26.1 Intake & Output: Intake and Output for Last 24 Hours 07/24/24 07/25/24 07/26/24 23:59 23:59 23:59 Intake Total 1000 / 1000 2800 / 2800 Balance 1000 / 1000 2800 / 2800 Lab / Micro Data 07/25/24 04:20 07/25/24 04:20 Labs: Laboratory Results - last 24 hr 07/25/24 04:20: Hemoglobin A1c 5.6, Troponin T High Sens 11 D Radiography Diagnostic Testing: Radiology Impression Brain MRI 07/25/24 01:44 IMPRESSION: 1. Few foci of abnormal subcortical and periventricular white matter signal in the cerebral hemispheres. Nonspecific but consistent with chronic ischemic white matter disease. 2. Other findings as noted. Reading Location: [facility] Echocardiogram 07/25/24 01:44 Interpretation Summary The LV systolic function is normal. EF is 65 %. LV filling pattern indicates impaired relaxation. Bubble contrast study is negative for PFO/ASD. Mild diffuse aortic valve thickening. Ordering Physician: Ileana Minaya Referring Physician: Rehana Ceja Performed By: Kaylie Ramirez, RDCS, RVT Physical Exam Const alert and no apparent distress Constitutional Narrative: up in chair. nontoxic. afebrile. BERRY spontaneously. Assessment & Plan Assessment/Plan (1) Amnesia: PLAN: etiology: TIA/CVA MRI brain showed few foci of abnormal subcortical and periventricular white matter signal in the cerebral hemispheres. Orthostatic vitals negative Echo shows an EF 65%. No PFO/ASD EEG normal. Neuro consult: recommending ASA and clopidogrel 21 days, then ASA. 30-day event monitor. DC home. Follow up with PCP and neurology. PLAN: Plan VTE prophylaxis: LMWH. NIHSS NIHSS Nursing Documentation NIHSS Nursing Documentation: NIHSS: Ischemic Stroke/TIA Start: 07/25/24 01:44 Text: For PCU Patients: NIH and Neuro Check every 4 Status: Complete hours, PRN and with change in RN caregiver. Freq: [id number] Protocol: Activity Type Activity Date Activity User E-sign Co-sign Detail Recorded Client Recorded Date Recorded By Document 07/25/24 18:00 CD [id number] 07/25/24 18:49 CD 07/25/24 18:00 NIH Stroke Scale [NIHSS] A score of 0 is normal or asymptomatic . Total possible score is 42. Inpatient: RN or Physician to activate a stroke alert for onset of new stroke symptoms or with NIHSS increase >/= 3 points. Following change in neurological status, NIHSS will be performed per physician order or more frequently PRN. -1a. Level of Consciousness 0 - Alert; keenly responsive -1b. LOC Questions 0 - Answers BOTH questions correctly -1c. LOC Commands 0 - Performs BOTH tasks correctly -2. Best Gaze 0 - Normal -3. Visual 0 - No visual loss -4. Facial Palsy 0 - Normal symmetrical movements -5a. Left Arm 0 - No drift; arm holds 90 ( or 45) degrees for full 10 seconds -5b. Right Arm 0 - No drift; arm holds 90 ( or 45) degrees for full 10 seconds -6a. Left Leg 0 - No drift; leg holds 30- degree position for full 5 seconds -6b. Right Leg 0 - No drift; leg holds 30- degree position for full 5 seconds -7. Limb Ataxia 0 - Absent -8. Sensory 0 - Normal; no sensory loss -9. Best Language 0 - No aphasia; normal -10. Dysarthria 0 - Normal -11. Extinction and Inattention 0 - No abnormality -Total 0 Query Text:A score of 0 is normal or asymptomatic. Total possible score is 42 . ED: Notify Physician for NIHSS increase by > / = 3 points. Inpatient: RN or Physician to activate a stroke alert for NIHSS increase of > / = 3 points.
[2024-07-26 08:15] VITALS: BP 122/91; PULSE 66; RESP 14; TEMP 36.6; O2SAT 98
[2024-07-26] MEDS: Enoxaparin 40 MG/0.4 ML Syringe SC (08:20)
[2024-07-26] MEDS: Aspirin E.C. 81 MG Tablet PO (08:20)
[2024-07-26] MEDS: Clopidogrel Bisulfate 300 MG Tablet PO (08:20)
[2024-07-26] MEDS: Acetaminophen 325 MG Tablet 650 MG PO (08:20)
--- NOTE | 2024-07-26 08:54 | DS.PCM_ITS ---
Providers Date of Admission: 07/24/24 Primary Care Physician: BIPIN Clinton Consultations 07/25/24 07:09 [facility] [Consult: Tele-Neurology] Routine Consulting Provider: [facility] Reason for Consult: amnesia EMERGENT Consult: No MD Notified: Yes Date Notified: 07/25/24 Time Notified: 07:43 Method of Notification: Answering Service Nursing Unit Staff Notify [facility] of Tele-Neurology Consult: Yes Reason For Visit: TIA, NEAR SYNCOPE Diagnosis Discharge Diagnosis (1) Amnesia: Status: Acute Code(s): R41.3 - Other amnesia Plan: etiology: TIA/CVA MRI brain showed few foci of abnormal subcortical and periventricular white matter signal in the cerebral hemispheres. Orthostatic vitals negative Echo shows an EF 65%. No PFO/ASD EEG normal. Neuro consult: recommending ASA and clopidogrel 21 days, then ASA. 30-day event monitor. DC home. Follow up with PCP and neurology. Plan VTE prophylaxis: LMWH. Medications at Discharge Home Medications amlodipine 5 mg tablet 5 mg PO DAILY 30 days #30 tabs 11/10/23 aspirin 81 mg tablet,delayed release 81 mg PO BREAKFAST 90 days #90 tabs 11/10/23 metoprolol succinate 25 mg tablet,extended release 24 hr 25 mg PO DAILY 07/24/24 atorvastatin 80 mg tablet (Lipitor) 80 mg PO QHS #30 tabs 07/26/24 clopidogrel 75 mg tablet 75 mg PO DAILY #30 tabs 07/26/24 Hospital Course Operations None Procedures 2-D Echocardiogram Summary of Care Provided Hospital Course: Patient had amnesia while he was out working. Presented to the emergency room and underwent evaluation. It was initially unclear what actually happened to him. Patient underwent EEG that was normal. Did not seem like seizures patient had no postictal period. But his MRI did show a few foci of abnormal subcortical and periventricular white matter signal in the cerebral hemispheres. Consistent with chronic ischemic white matter disease. Patient was seen by neurology who felt his symptoms were concerning for a TIA. Recommended loading with Plavix, which was did while he is in the hospital, as well as aspirin 81 mg daily and clopidogrel 35 mg daily for 21 days and then aspirin 81 mg daily thereafter. Addition patient to have a 30-day event monitor. Patient will be discharged home in stable condition. Patient follow-up with his PCP as well as neurology as outpatient. Weight / BMI Weight Weight: 73.709 kg Body Mass Index (BMI) 26.1 ABG / Lab / Microbiology Data 07/25/24 04:20 07/25/24 04:20 Laboratory: Laboratory Results - last 24 hr 07/25/24 04:20: Troponin T High Sens 11 D Radiography Diagnostic Testing: Radiology Impression Brain MRI 07/25/24 01:44 IMPRESSION: 1. Few foci of abnormal subcortical and periventricular white matter signal in the cerebral hemispheres. Nonspecific but consistent with chronic ischemic white matter disease. 2. Other findings as noted. Reading Location: [id number] Echocardiogram 07/25/24 01:44 Interpretation Summary The LV systolic function is normal. EF is 65 %. LV filling pattern indicates impaired relaxation. Bubble contrast study is negative for PFO/ASD. Mild diffuse aortic valve thickening. Ordering Physician: Ileana Minaya Referring Physician: Rehana Ceja Performed By: Kaylie Ramirez, YANICK, RVT D/C Instructions Discharge Diet: Low fat / Low cholesterol DC O2, CPAP, BIPAP Needs Home O2 Discharge instructions: No Meaningful Use Info Meaningful Use Meaningful Use Diagnoses (Choose all that apply): Ischemic CVA CVA Therapy Assessed for PT,OT and/or ST?: Yes Ischemic Stroke Antithrombotic order at d/c?: Yes Dx of Atrial fib/flutter?: No Anticoagulant at discharge?: No Reason anticoagulant not ordered: Treatment not Indicated Statin Dosing Therapy Reference: STATIN DOSE THERAPY REFERENCE: * Patients > 75 years receive moderate or high dose statin therapy. * Patients 75 years or YOUNGER should receive HIGH intensity statin dose unless contraindicated. You will be required to document reason for non-treatment if statin daily dose does not meet guidelines. HIGH DOSE STATIN THERAPY DAILY Atorvastatin > than or = to 40 mg Rosuvastatin > than or = to 20 mg Amlodipine + Atorvastatin > than or = to 2.5/40 mg Ezetimibe + Simvastatin 10/80 mg Simvastatin 80mg Statins at discharge?: Yes If patient is 75 or younger, pt will be discharged on HIGH intensity statin.: Y es Primary Dx Acute Ischemic CVA?: Yes IV thrombolytic ordered during stay?: No Reason IV thrombolytic not ordered: Treatment not Indicated Discharge Plan Admission Admit Date/Time: 07/24/24 23:28 Primary Reason for Your Visit: TIA Attending Provider: Olivier Aleman Primary Care Provider: Rehana Ceja NP Consulting Providers: Ileana Minaya; Ankur Del Toro; Nancy Rosenbaum; Joanna Perdomo; Harman Osborne; Tonny Benitez; Bart Pryor; NIRMAL CARVAJAL; Anel Simental; Ara Thapa; Ashkan Adamson; Breana Maciel; Sergei Luu; Jeanne Haq; Niurka Mcdonald; Paulo Dinero; Tessa Steiner; Enio David; Randall Monroe; Alexandro Reddy; Roxanna De Souza; Kenyon Santos; Jori Fam; Lisa Jimenez; Luis Frausto; Chhaya Lutz; Christos iKm Instructions Additional Instructions / Restrictions: You had transient amnesia. Your workup is more concerning that you had a TIA (short for transient ischemic attack also known as mini stroke). Your MRI did show evidence of small strokes. You did have an EEG (testing for brainwave changes). No seizure activity was noted. He will be on aspirin and Plavix for 21 days and then to continue with aspirin afterwards. I do recommend also that you have a 3-day event monitor to see if you have any heart rhythms, such as atrial fibrillation, that could be a cause of future strokes. Recommend that you follow with your PCP as well as neurology as outpatient Discharge Orders/Prescriptions Prescriptions: New clopidogrel 75 mg Tablet 75 mg PO DAILY Qty: 30 0RF atorvastatin [Lipitor] 80 mg tablet 80 mg PO QHS Qty: 30 0RF Continued amlodipine 5 mg Tablet 5 mg PO DAILY 30 Days Qty: 30 2RF aspirin 81 mg Tablet,Delayed Release (Dr/Ec) 81 mg PO BREAKFAST 90 Days Qty: 90 0RF metoprolol succinate 25 mg tablet extended release 24 hr 25 mg PO DAILY Discontinued atorvastatin 10 mg Tablet 10 mg PO QHS 90 Days Qty: 90 0RF Other Ambulatory Orders: 30 Day Event Recorder Preventi (Urgent) Timeframe: 1 Day Facility: [facility] - Location: Cardiovascular Services Ordered By: Dr. Olivier Aleman Referrals / Follow Up: [facility] [Provider Group] - Within 1 Month Rehana Ceja [employer], [employer] [facility] [Primary Care Provider] - Within 2 Weeks Disposition Disposition (needs filled in before D/C Order can be placed): Home, Self Care Charges/Coding Visit Charges Inpatient E&M: [id number] [facility]
--- NOTE | 2024-07-26 09:27 | CASEMGMT ---
Pt has an order for DC placed. RN ERINN participated in ICU rounds and pt reports no additional needs identified as the pt is entirely independent and feels safe returning home today.
--- NOTE | 2024-07-26 10:35 | NURSING ---
Pt and daughter given discharge instructions including medications, follow up appointments and all other discharge instructions. Pt and daughter deny any further needs at this time. telemetry removed. Iv removed with catheter intact, clean dry dressing applied, pt tolerated well. pt and daughter walking out to daughters waiting vehicle.
--- NOTE | 2024-07-26 12:47 | CHAPLAIN ---
Type of Pastoral Visit ___ Initial Visit ___ Follow-up Visit ___ On-call Visit ___ General Patient Visit ___ Spiritual Assessment ___ Family Conference ___ Bereavement ___ Rapid Response ___ Code Blue ___ Other (describe below) Pastoral Care Referral From ___ Patient ___ Family ___ Nurse ___ Physician ___ Finish Molder ___ Heart Specialist ___ Other (describe below) Sacrament/Intervention ___ Active listening ___ Anointing ___ Faith ___ Bereavement ___ Communion ___ Keeley exploration ___ ___ Life review ___ Prayer ___ Reconciliation ___ Sacrament of Sick ___ Supportive presence ___ Wedding ___ Other (describe below) Pastoral Comments patient was discharged before being seen by this race starter
== END 2024-07-26 10:42 | disposition home or self-care (01) ==
LOC: ED 21:56 → ICU 23:40
PROVIDERS: Admitting Provider Family Medicine; Emergency Provider Surgery; PCP Nurse Practitioner Family
DX: G45.9 Transient cerebral ischemic attack, unspecified (principal); F17.220 Nicotine dependence, chewing tobacco, uncomplicated; R41.3 Other amnesia; R41.0 Disorientation, unspecified; E87.1 Hypo-osmolality and hyponatremia; E78.5 Hyperlipidemia, unspecified; Z79.82 Long term (current) use of aspirin; Z82.49 Family history of ischemic heart disease and other diseases of the circulatory system; R55 Syncope and collapse; I10 Essential (primary) hypertension; K21.9 Gastro-esophageal reflux disease without esophagitis; D50.9 Iron deficiency anemia, unspecified; R20.0 Anesthesia of skin; Z79.899 Other long term (current) drug therapy; M25.512 Pain in left shoulder; G25.81 Restless legs syndrome
CPT/HCPCS: 70450; 70496; 70498; 70551; 71045; 80048; 80053; 80061; 81001; 83036; 83735; 84443; 84484; 85025; 85610; 85730; 93005; 93306; 94668; 94762; 95819; 96360; 96361; 96372; 97162; 97166; 97802; 99221; 99285; Q9957; Q9967; A4216; G0378

== ENCOUNTER → 2024-11-15 | Outpatient (CLI) | payer OTHER, SELFPAY ==
[2024-11-15 11:07] LABS: Vitamin B12 440 pg/mL (180-914)
[2024-11-19 12:08] LABS: Vitamin D 1,25-Dihydroxy 55.4 pg/mL (24.8-81.5)
[2024-11-22 06:08] LABS: Folate, Hemolysate Test 350.0 ng/mL (Not Estab.); Folate, RBC (Hct) Test 46.8 % (37.5-51.0); Folates, RBC Test 748 ng/mL (>498); VITAMIN B6 15.9 ug/L (3.4-65.2); Vitamin B1, Thiamine 146.6 nmol/L (66.5-200.0)
== END | disposition home or self-care (01) ==
LOC: MTLAB 08:50
PROVIDERS: PCP Nurse Practitioner Family; Referring Provider Psychiatry & Neurology Neurology; Visit Provider Psychiatry & Neurology Neurology
DX: R41.3 Other amnesia (principal); R53.83 Other fatigue
CPT/HCPCS: 36415; 82607; 82652; 82747; 84207; 84425; 85014

== ENCOUNTER → 2025-01-08 | Outpatient (CLI) | payer OTHER, SELFPAY ==
--- OUTSIDE RECORDS SUMMARY | 2025-01-08 07:10 | XMS RPT_ITS | CCD ---
Author Organization [facility] Care Team Providers Care Dude Wrangler Name Role Phone NAZANIN MENDOZA MD Primary Care Physician BOB RICE Primary Care Physician [phone] Dr. Nazanin Mendoza Primary Care Provider Dr. Ricardo Ly Attending Provider Merly Hankins Referring Provider Unavailable Dr. Ricardo Ly Other Provider MARCIAL CREWMAN MAIN BATTLE TANK-BRAILLE OPERATOR, REHANA Primary Care Physician QUIQUESON CREWMAN MAIN BATTLE TANK-BRAILLE OPERATOR, [facility] Unavail able MINDY CREWMAN MAIN BATTLE TANK-BRAILLE OPERATORDAVID Attending Un available LORSON CREWMAN MAIN BATTLE TANK-BRAILLE OPERATOR, [facility] Unavail able ROMAR DO, DR BRANDON Attending Unavailable ROMAR DO, DR BRANDON Attending Unavailable LORSON CREWMAN MAIN BATTLE [facility] ROMAR DO, DR BRANDON Attending Unavailable LORSON CREWMAN MAIN BATTLE TANK-BRAILLE [facility] Unavail able LORSON CREWMAN MAIN BATTLE TANK-BRAILLE OPERATOR, [facility] Unavail able ROMAR DO, DR BRANDON Attending Unavailable Tere Dubon Unavailable Unavailable Dr. Geronimo Morales DO Emergency Provider Marcial PRASAD-C, Rehana Primary Care Provider Marimar LUIS, Dr. Ileana Kong Admit Provider Dr. Ileana Minaya MD Other Provider [phone] Dr. Olivier Aleman DO Attending Provider [phone] Katey LUIS, Dr. Pascual Other Provider Dr. Nancy Rosenbaum MD Other Provider Conor LUIS, Joanna Other Provider India MS, Harman Other Provider Emmanuel LUIS, Dr. Lancaster Other Provider Konstantin LUIS, Bart Other Provider [phone] WEI LUIS, NIRMAL Other Provider Hola LUIS, Anel Other Provider Elier LUIS, Dr. Bullock Other Provider Snow LUIS, Ashkan Other Provider Raheem LUIS, Breana Other Provider Jus LUIS, Sergei Other Provider Unavailable Eun LUIS, Jeanne Other Provider Unavailable Dr. Niurka Mcdonald DO Other Provider Rosette LUIS, Dr. Bates Other Provider Jatin LUIS, Dr. Zarate Other Provider Joann LUIS, Dr. Steen Other Provider Fer LUIS, Dr. Pereira Other Provider Barry LUIS, Dr. Mc Other Provider Ap LUIS, Dr. Mcknight Other Provider Danielle LUIS, Dr. Kenyon Tidwell Other Provider Sarwat LUIS, Dr. Hsieh Other Provider Tony LUIS, Dr. Gonzalez Other Provider Jett LUIS, Dr. Smith Other Provider Bolivar LUIS, Dr. Shaver Other Provider Unavailable Judy LUIS, Youjose e Other Provider Unavailable Dr. Olivier Aleman DO Other Provider Adam LUIS, Dr. Nelson Attending Provider Marimar LUIS, Dr. Ileana Kong Attending Provider Dr. Olivier Aleman DO Referring Provider Quiqueson PHARMACOGENETICIST-C, Rehana Referring Provider Shakira PHARMACOGENETICIST-C, Lida Attending Provider LORSON CREWMAN MAIN BATTLE TANK-BRAILLE OPERATOR, REHANA Primary Care Unavail able LORSON CREWMAN MAIN BATTLE TANK-BRAILLE OPERATOR, REHANA Attending Unavail able LORSON CREWMAN MAIN BATTLE TANK-BRAILLE OPERATOR, REHANA Attending Unavail able LORSON CREWMAN MAIN BATTLE TANK-BRAILLE OPERATOR, [place] Primary Care Unavail able LORSON CREWMAN MAIN BATTLE TANK-BRAILLE OPERATOR, [place] Primary Care Unavail able LORSON CREWMAN MAIN BATTLE TANK-BRAILLE OPERATOR, REHANA Attending Unavail able LORSON CREWMAN MAIN BATTLE TANK-BRAILLE OPERATOR, [place] Primary Care Unavail able LORSON CREWMAN MAIN BATTLE TANK-BRAILLE OPERATOR, REHANA Attending Unavail able Dr. Geronimo Morales DO Emergency Departmen t Physician Lorson PHARMACOGENETICIST-C, Rehana Primary Care Physician [phone] Marimar LUIS, Dr. Ileana Kong Admitting Physician Marimar LUIS, Dr. Ileana Kong Nurse Practitioner Dr. Olivier Aleman DO Attending Physician Katey LUIS, Dr. Pascual Nurse Practitioner Robi LUIS, Dr. Cruz Nurse Practitioner Conor LUIS, Joanna Nurse Practitioner India MARTIN, Harman Nurse Practitioner Emmanuel LUIS, Dr. Lancaster Nurse Practitioner Konstantin LUIS, Bart Nurse Practitioner NIRMAL CARVAJAL MD Nurse Practitioner Hola LUIS, Anel Nurse Practitioner Elier LUIS, Dr. Bullock Nurse Practitioner Snow LUIS, Ashkan Nurse Practitioner Raheem LUIS, Breana Nurse Practitioner Jus LUIS, Sergei Nurse Practitioner Unavailable Eun LUIS, Jeanne Nurse Practitioner Unavailab Dr. Niurka Valentin DO Nurse Practitioner Rosette LUIS, Dr. Bates Nurse Practitioner Jatin LUIS, Dr. Zarate Nurse Practitioner Joann LUIS, Dr. Steen Nurse Practitioner Fer LUIS, Dr. Pereira Nurse Practitioner Barry LUIS, Dr. Mc Nurse Practitioner Ap LUIS, Dr. Mcknight Nurse Practitioner Danielle LUIS, Dr. Kenyon Tidwell Nurse Practitioner Sarwat LUIS, Dr. Hsieh Nurse Practitioner Tony LUIS, Dr. Gonzalez Nurse Practitioner Jett LUIS, Dr. Smith Nurse Practitioner Bolivar LUIS, Dr. Shaver Nurse Practitioner Unavailarie Kim MD, [facility] Nurse Practitioner UnavailDr. Olivier Desir DO Nurse Practitioner Adam LUIS, Dr. Nelson Attending Physician Ayo LUIS, Dr. Downs Attending Physician Dr. Olivier Aleman DO Referring Provider Lida Hitchcock Attending Physician Dr. Salazar Ward MD Attending Physician [phone] Dr. Salazar Ward MD Referring Provider [facility] Unavailable Ileana Minaya Admitting Unavailable Ileana Minaya Consulting Unavailable Olivier Aleman Attending Unavailable Adeli, Amir Consulting Unavailable Robi, Nancy Consulting Unavailable Joanna Perdomo Consulting Unavailable Harman Osborne Consulting Unavailable Tonny Benitez Consulting Unavailable Bart Pryor Consulting Unavailable NIRMAL CARVAJAL Consulting Unavailable BeAnel canas Consulting Unavailable Ara Thapa Consulting Unavailable Ashkan Adamson Consulting Unavailable Raheem, Breana Consulting Unavailable Sergei Luu Consulting Unavailable Hinduja, Jeanne Consulting Unavailable Harry, Niurka Consulting Unavailable Rosette, Paulo Consulting Unavailable Jatin, Tessa Consulting Unavailable Bitjose, Enio Consulting Unavailable Randall Monroe Consulting Unavailable Alexandro Reddy Consulting Unavailable Roxanna De Souza Consulting Unavailable Kenyon Santost Consulting UnavailJori Shannon Consulting Unavailable Jmienez, Rami Consulting Unavailable Remy Fraustol Consulting Unavailable Chhaya Lutz Consulting Unavailable Bassem Kimserachel Consulting Unavailable Olivier Aleman Consulting Unavailable Lorson PHARMACOGENETICIST, [facility] Care Unavailable Olivier Aleman Attending Unavailable Olivier Aleman Referring Unavailable Simón Teran Referring Unavailable Lorson PHARMACOGENETICIST, [facility] Care Unavailable Simón Teran Attending Unavailable Salazar Ward Referring Unavailable Lorson PHARMACOGENETICIST, [facility] Care Unavailable Salazar Ward Attending Unavailable Quiqueson PHARMACOGENETICIST, [facility] Care Unavailable Ileana Minaya Admitting Unavailable Ileana Minaya Consulting Unavailable Olivier Aleman Attending Unavailable Ankur Del Toro Consulting Unavailable Loretta Rosenbaumcia Consulting Unavailable Joanna Perdomo Consulting Unavailable Harman Osborne Consulting Unavailable Tonny Benitez Consulting Unavailable Bart Pryor Consulting Unavailable NIRMAL CARVAJAL Consulting Unavailable Anel Simental Consulting Unavailable Ara Thapa Consulting Unavailable Ashkan Adamson Consulting Unavailable Breana Maciel Consulting Unavailable Sergei Luu Consulting Unavailable Jeanne Haq Consulting Unavailable Harry Niurka Consulting Unavailable Rosette, Paulo Consulting Unavailable Jatin, Tessa Consulting Unavailable Joann, Enio Consulting Unavailable Randall Monroe Consulting Unavailable Alexandro Reddy Consulting Unavailable Roxanna De Souza Consulting Unavailable Danielle, Kenyon Mirandat Consulting UnavailJori Shannon Consulting Unavailable Jimenez, Rami Consulting Unavailable Jett, Luis Consulting Unavailable Chhaya Lutz Consulting Unavailable Bassem Kimsef Consulting Unavailable Simón Teran Attending Unavailable Lorson PHARMACOGENETICIST, [facility] Care Unavailable Marcial PHARMACOGENETICIST, [place] Referring Unavailable Simón Teran Attending Unavailable Nazanin Mendoza Primary Care Unavailable Nazanin Mendoza Referring Unavailable Kannan Kevin Attending Unavailable Nazanin Mendoza Primary Care Unavailable Lorson PHARMACOGENETICIST, [place] Referring Unavailable Lida Rosenberg Attending Unavailable Lorson PHARMACOGENETICIST, [facility] Care Unavailable Salazar Ward Attending Unavailable Marcial PRASAD, Rehana Referring Unavailable Marcial PRASAD, Rehana Primary Care Unavailable Marcial PRASAD, Rehana Primary Care Unavailable Omar Medina Attending Unavailable Olivier Aleman Referring Unavailable Himanshu Rollins Attending Unavailarie Ceja NP, Rehana Primary Care Unavailable Ileana Minaya Attending Unavailable Allergies Allergy Classification Reported Allergen(s) Allergy Type Date of Onset Reaction(s) Facility (3 sources) Shellfish; Translations: [shellfish derived] Allergy to substance 2 Anaphylaxis [facility] Repository (4 sources) Shellfish Food allergy Vomiting (disorder) [facility] Medications Current Medications Medication Drug Class(es) Dates Sig (Normalized) Sig (Original) aspirin 81 mg oral tablet (7 sources) Platelet Aggregation Inhibitor, Nonsteroidal Anti-inflammatory Drug Start: 11-14-2023 ASPIRIN LOW EC 81MG TAB ASPIRIN LOW EC 81MG TAB, TAKE 1 TABLET BY MOUTH WITH BREAKFAST FOR 90 DAYS Start Date: 11/14/23 Status: Ordered Medication Dispense Status: Completed Total Allowed Fills: 1 Fills Dispensed: 0 Start: 11-10-2023 take 1 tablet by mouth at [facility] atorvastatin 80 mg oral tablet (10 sources) HMG-CoA Reductase Inhibitor Start: 07-26-2024 End: 08-01-2025 take 1 tablet by mouth at bedtime Start: 01-02-2024 End: 12-27-2024 atorvastatin 40 mg oral tabl et Dose : 40 mg = 1 tab(s), Oral, qDay, # 90 tab(s), 3 Refill(s), Pharmacy: [id number], 168, cm, 01/02/24 7:54:00 EST, Height, kg, 01/02/24 7:54:00 EST, Dosing Weight Start Date: 01/02/24 Stop Date: 12/27/24 Status: Ordered Quantity: 90.0 Unit: tab(s) Repeat number: 4 Start: 11-10-2023 End: 07-26-2024 take 1 tablet by mouth at bedtime Atorvastatin 10 mg Tablet Discontinued 10 mg PO AT BEDTIME 90 90 0 November 10, 2023 12:00am July 26, 2024 9:00am DME MISCellaneous (6 sources) Start: 10-25-2023 DME MISCellane ous See Instructions, BP cuff and machine, Dx: R03.0, # 1 EA, 0 Refill(s), Elevated blood pressure reading, 79.9 Start Date: 10/25/23 Status: Ordered Medication Dispense Status: Completed Quantity: 1.0 Unit: EA Total Allowed Fills: 1 Fills Dispensed: 0 Indications: Elevated blood-pressure reading, without diagnosis of hypertension; Start: 10-25-2023 DME MISCellane ous See Instructions, [...] reading, 79.9 Start Date: 10/25/23 Status: Ordered 1.5 ml fremanezumab-vfrm 150 mg/ml auto-injector (2 sources) Start: 08-16-2024 End: 11-15-2024 ibuprofen 200 mg oral tablet (3 sources) [...] qDay, # 10 cap(s), 0 Refill(s), Pharmacy: [facility] #[id number], Rash, 165.1, cm, 10/15/22 10:16:00 EDT, Height, kg, 10/15/22 10:16:00 EDT, Dosing Weight Start Date: 10/15/22 Status: Ordered metoprolol tartrate 25 mg oral tablet (5 sources) beta-Adrenergic [place] Start: 08-06-2024 take 1 tablet by mouth once daily Metoprolol Succinate ER 25 mg oral TABLET extended release TAKE 1 TABLET BY MOUTH ONCE DAILY. DO NOT CRUSH OR CHEW (CONTROLLED RELEASE) Start Date: 08/06/24 Status: Ordered Medication Dispense Status: Completed Total Allowed Fills: 1 Fills Dispensed: 0 Start: 07-24-2024 End: 08-16-2024 take 1 tablet by mouth once daily Metoprolol Succinate 25 mg tablet extended release 24 hr Discontinued 25 mg PO DAILY July 24, 2024 12:00am August 16, 2024 8:33am PEG-3350 with Electrolytes (Eqv-GoLYTELY) oral powder for reconstitution (1 source) Start: 07-28-2022 PEG-3350 with Electrolytes (Eqv-GoLYTELY) oral powder for reconstitution See Instructions, Take as directed 1 day before colonoscopy. Follow instructions as provided by your GI provider at [facility]., # 1 EA, 0 Refill(s), [facility]acy: [id number], 167.8, cm, 07/28/22 7:28:00 EDT, Height Start Date: 07/28/22 Status: Ordered traZODone hydrochloride 50 mg oral tablet (1 source) Serotonin Reuptake Inhibitor Start: 11-15-2024 take 1 tablet by mouth at bedtime ubrogepant 100 mg oral tablet (2 sources) Start: 08-16-2024 End: 11-15-2024 take 1 tablet by mouth once daily as needed for headache Completed/Discontinued Medications Medication Drug Class(es) Dates Sig (Normalized) Sig (Original) amLODIPine 5 mg oral tablet (13 sources) Dihydropyridine Calcium Channel Preston Start: 10-25-19 End: 08-17-19 take 1 tablet by mouth once daily Amlodipine 5 mg Tablet Discontinued 5 mg PO DAILY 30 30 2 November 10, 2023 12:00am August 16, 2024 8:32am clopidogrel 75 mg oral tablet (4 sources) P2Y12 Platelet Inhibitor Start: 07-27-19 End: 11-16-19 take 1 tablet by mouth once daily Clopidogrel 75 mg Tablet Discontinued 75 mg PO DAILY 30 0 July 26, 2024 12:00am November 15, 2024 8:33am famotidine 20 mg oral tablet (3 sources) Histamine-2 Receptor Antagonist Start: 10-16-19 End: 10-26-19 Pepcid 20 mg oral tablet Dose : 20 mg = 1 tab(s), Oral, BID, # 20 tab(s), 0 Refill(s), Pharmacy: [facility] #[id number], Rash, 165.1, cm, 10/15/22 10:16:00 EDT, Height, kg, 10/15/22 10:16:00 EDT, Dosing Weight Start Date: 10/15/22 Stop Date: 10/25/22 Status: Ordered hydroCHLOROthiazide 25 mg oral tablet (4 sources) Thiazide Diuretic Start: 11-07-19 End: 11-09-19 take 1 tablet by mouth once daily Hydrochlorothiazide 25 mg tablet Discontinued 25 mg PO daily November 07, 2023 12:00am November 09, 2023 1:24pm lactobacillus acidophilus [id number] unt oral capsule (4 sources) Start: 11-07-19 End: 11-09-19 Lactobacillus Acidophilus 1 billion cell capsule Discontinued 1000 NMA PO TWICE A DAY November 07, 2023 12:00am November 09, 2023 1:24pm omeprazole 40 mg delayed release oral capsule (9 sources) Proton Pump Inhibitor Start: 11-16-19 End: 11-30-19 omeprazole 40 mg oral delayed release capsule Dose : 40 mg = 1 cap(s), Oral, qDay, # 14 cap(s), 0 Refill(s), Pharmacy: [id number], 167, cm, 11/16/23 10:39:00 EDT, Height, kg, 11/16/23 10:39:00 EDT, Dosing Weight Start Date: 11/16/23 Stop Date: 11/30/23 Status: Ordered Start: 11-07-2023 End: 11-09-2023 take 1 capsule by mouth once daily Omeprazole 20 mg capsule,delayed release(DR/EC) Discontinued 20 mg PO daily November 07, 2023 9:07am November 09, 2023 1:24pm Start: 11-07-2023 End: 11-07-2023 take 1 capsule by mouth twice daily Omeprazole 20 mg capsule,delayed release(DR/EC) Discontinued 20 mg PO TWICE A DAY November 07, 2023 12:00am November 07, 2023 9:09am oxyCODONE hydrochloride 5 mg oral tablet (5 sources) Opioid Agonist Start: 02-18-2022 End: 03-10-2022 take 5-10 mg by mouth every six hours as needed for pain Oxycodone 5 mg tablet Discontinued 5 - 10 mg PO EVERY 6 HOURS as needed for pain 10 5 0 February 18, 2022 March 10, 2022 9:47am Recurrent right inguinal hernia Unilateral inguinal hernia, without obstruction or gangrene, recurrent Potassium Chloride (4 sources) Start: 11-07-2023 End: 11-09-2023 take 99 mg by mouth once daily potassium chloride Discontinued 99 mg PO DAILY November 07, 2023 12:00am November 09, 2023 1:24pm tamsulosin hydrochloride 0.4 mg oral capsule (12 sources) alpha-Adrenerg ic Preston Start: 02-11-2022 End: 02-25-2023 take 1 capsule by mouth at bedtime Tamsulosin (Flomax) 0.4 mg Capsule Discontinued 0.4 mg PO AT BEDTIME February 11, 2022 1:00am February 25, 2023 1:55pm Start: 12-28-2021 End: 02-03-2022 take 1 capsule by mouth once daily Tamsulosin (Flomax) 0.4 mg capsule Discontinued 0.4 mg PO DAILY 14 0 December 28, 2021 1:00am February 03, 2022 9:53am Problems Active Problems Problem Classification Problem Date Documented Date Episodic/Chronic Abdominal hernia (20 sources) Right inguinal hernia ; Translations: [Unilateral inguinal hernia, without obstruction or gangrene, not specified as recurrent] Episodic Abdominal pain (6 sources) Abdominal pain; Translations: [Unspecified abdominal pain] 01-05-2022 Episodic Administrative/social admission (9 sources) Administrative reason for encounter 09-22-2020 Episodic Aortic; peripheral; and visceral artery aneurysms (2 sources) Aortic root dilatation 04-03-2024 Chronic Coronary atherosclerosis and other heart disease (5 sources) Preinfarction syndrome; Translations: [Unstable angina] 11-16-2023 Chronic Deficiency and other anemia (4 sources) Iron deficiency anemia; Translations: [Iron deficiency anemia, unspecified] 11-07-2023 Episodic Diabetes mellitus without complication (4 sources) Hyperglycemia; Translations: [Hyperglycemia, unspecified] 11-17-2023 Episodic Disorders of lipid metabolism (3 sources) Hyperlipidemia 11-16-2023 Chronic Esophageal disorders (4 sources) Gastroesophageal reflux disease; Translations: [Gastro-esophageal reflux disease without esophagitis] 11-07-2023 Chronic Essential hypertension (7 sources) Essential hypertension; Translations: [Essential (primary) hypertension] Onset: 11-01-2023 Chronic Fluid and electrolyte disorders (4 sources) Hypokalemia; Translations: [Hypokalemia] 11-07-2023 Episodic Genitourinary symptoms and ill-defined conditions (6 sources) Acute retention of urine ; Translations: [Other retention of urine] 01-05-2022 Episodic Headache; including migraine (6 sources) Migraine; Translations: [Migraine, unspecified, not intractable, without status migrainosus] 11-07-2023 Chronic Comment on above: OCC Malaise and fatigue (10 sources) Fatigue; Translations: [Other fatigue] Onset: 11-15-2024 08-26-2021 Episodic Mood disorders (2 sources) 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 Nonspecific chest pain (9 sources) Chest pain; Translations: [Other chest pain] Onset: 11-01-2023 Episodic Nutritional deficiencies (9 sources) Vitamin D deficiency 06-21-2022 Chronic Osteoarthritis (8 sources) Arthritis; Translations: [Unspecified osteoarthritis, unspecified site] 11-07-2023 Chronic Comment on above: HANDS Other acquired deformities (7 sources) Scoliosis deformity of spine; Translations: [Scoliosis, unspecified] Onset: 10-25-2023 Chronic Other circulatory disease (7 sources) Elevated blood pressure 06-22-2022 Episodic Other circulatory disease (1 source) Transient ischemia; Translations: [Other disorder of circulatory system] 08-16-2024 Episodic Other hereditary and degenerative nervous system conditions (4 sources) Restless legs; Translations: [Restless legs syndrome] 11-07-2023 Chronic Comment on above: OCC Other lower respiratory disease (6 sources) Snoring 07-21-2022 Episodic Other lower respiratory disease (9 sources) Dyspnea; Translations: [Shortness of breath] Onset: 10-25-2023 10-25-2023 Episodic Other lower respiratory disease (1 source) Shortness of breath; Translations: [Shortness of breath] Onset: 10-25-2023 Episodic Other nervous system disorders (4 sources) Carpal tunnel syndrome of left wrist; Translations: [Carpal tunnel syndrome, left upper limb] 03-15-2024 Chronic Other nervous system disorders (1 source) Carpal tunnel syndrome, left upper limb; Translations: [Carpal tunnel syndrome, left upper limb] Onset: 03-15-2024 Chronic Other nervous system disorders (2 sources) Facial paresthesia; Translations: [Paresthesia of skin] 08-16-2024 Episodic Other non-traumatic joint disorders (9 sources) Pain in left knee; Translations: [Left knee pain] Onset: 03-15-2024 02-25-2023 Episodic Other nutritional; endocrine; and metabolic disorders (4 sources) Obese class I; Translations: [Class 1 obesity] 11-07-2023 Chronic Other nutritional; endocrine; and metabolic disorders (8 sources) Unintentional weight loss 08-26-2021 Episodic Other nutritional; endocrine; and metabolic disorders (1 source) Weight loss 07-18-2024 Episodic Other screening for suspected conditions (not mental disorders or infectious disease) (12 sources) Viral screening status; Translations: [Raised prostate specific antigen] 08-26-2021 Episodic Residual codes; unclassified (10 sources) Insomnia; Translations: [Insomnia, unspecified] 08-26-2021 Episodic Residual codes; unclassified (8 sources) Amnesia; Translations: [Other amnesia] 07-25-2024 Episodic Residual codes; unclassified (2 sources) Other amnesia; Translations: [Other amnesia] Onset: 07-26-2024 Episodic Substance-related disorders (11 sources) Nicotine dependence; Translations: [Nicotine dependence, chewing tobacco, uncomplicated] Onset: 10-25-2023 07-21-2022 Chronic Syncope (2 sources) Syncope; Translations: [Syncope and collapse] 07-18-2024 Episodic Transient cerebral ischemia (12 sources) Transient cerebral ischemia; Translations: [Transient cerebral ischemic attack, unspecified] Onset: 07-26-2024 07-24-2024 Chronic Unclassified (20 sources) Patient encounter status 08-26-2021 Unclassified (7 sources) Paresthesia of bilateral hands 06-21-2022 Past or Other Problems Problem Classification Problem Date Documented Da te Episodic/Chronic Conditions associated with dizziness or vertigo (6 sources) Lightheadedness; Translations: [Dizziness and giddiness] Onset: 08-02-2024 11-07-2023 Episodic Other non-traumatic joint disorders (2 sources) Pain in right knee; Translations: [Pain in both knees] Onset: 03-15-2024 08-03-2024 Episodic Results Test Name Value Interpretation Reference Range Facility Orthopedic Visit Reporton Orthopedic Visit Report [facility] [address] [place] [id number] OFFICE VISIT Date of Service: 12/27/24 MR#: [id number] Acct: [id number] Name: TEODORA GRIFFITH Rep #: [id number] : 1965 Provider: Dr. Simón holguin MD Age/Sex: 59/M Location[place] [facility] Status: Signed Intake Vital Signs 11/15/24 07:53 12/27/24 08:53 Height 5 ft 5 in 5 ft 5 in Weight: 166 lb 165 lb BMI 27.6 27.4 BP 127/83 H Blood Pressure Location Rt brachial Position Sitting Respiration 15 Pulse 72 Pulse Source Monitor Temp 98.2 F Temp Source Temporal Pulse Oximetry (%) 100 Oxygen Delivery Method room air Intake Visit Reasons: LEFT KNEE Chief Complaint: Left knee injection Accompanied by: Self Is patient in pain?: Yes Pain scale (1-10): 6 Allergies shellfish derived Allergy (Verified 12/27/24 08:58) Anaphylaxis Medications ???Medication ???Instructions ???Recorded ???Confirmed ???Type aspirin 81 mg tablet,delayed 81 mg PO BREAKFAST 90 days #90 tab s 11/10/23 12/27/24 Rx release atorvastatin 80 mg tablet (Lipitor) 80 mg PO QHS #30 tabs 07/26/24 12/27/24 Rx fremanezumab-vfrm 225 mg/1.5 mL 225 mg (1.5 mL) subcut QMONTH #1.5 11/15/24 12/27/24 Rx subcutaneous auto-injector (Ajovy) mL trazodone 50 mg tablet 50 mg PO QHS insomnia #30 tabs 12/27/24 Rx ubrogepant 100 mg tablet (Ubrelvy) 100 mg PO DAILY PRN headache #16 11/15/24 12/27/24 Rx tabs Have you fallen in the past year?: No PFSH Medical History Left knee pain TIA (transient ischemic attack) Migraine headache Hernia, hiatal Recurrent right inguinal hernia Left carpal tunnel syndrome Bilateral knee pain Former smoker Obesity (BMI 30.0-34.9) Incisional hernia Hypokalemia Atypical chest pain Iron deficiency anemia Elevated PSA GERD (gastroesophageal reflux disease) Essential (primary) hypertension Lightheadedness SOB (shortness of breath) Osteoarthritis of left knee Arthritis Restless legs Chewing tobacco nicotine dependence Surgical History Hx of appendectomy Hx of arthroscopy of shoulder Hx of inguinal hernia repair H/O hand surgery Family History Mother Heart disease Diabetes Hypertension Father Cancer Kidney disease Heart disease Social History household members: spouse current occupational status: employed 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 Simón Teran MD 12/27/24 0841. Part of today???s visit was documented by [ ], acting as scribe. TEODORA GRIFFITH is a 59 year old M here today for follow-up left knee pain. Patient had a prior cortisone injection over 6 months ago that seem to help. He was doing a lot of kneeling 2 months ago and seem to flared up he has some mild swelling inside the knee. No redness or drainage or other constitutional symptoms. It hurts to kneel as well as sometimes with prolonged sitting. Ortho Exam General General: Yes no acute distress Neurologic: Yes alert and Yes oriented x3 Psychologic: Yes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 There is no other family neurological history. Patient had 2 reported episodes. First reported episode was 07/14/2024 when found patient lying in the grass at home. 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 He had no chest palpitations, pain, or discomfort at this time. He may have had diaphoresis. He had minimal recollection of the events. His states that he repeated conversations throughout the day. Patient states that he felt very fatigued after but returned to baseline the following day. A second episode occurred on 07/24/2024 where patient had 30 seconds of total memory loss. 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 After 30 seconds, patient came to remembering his usual route and continued working. He did report palpitations around the time of this event. The patient presented to the emergency room later that day to be evaluated. Patient had subtle sensory changes in his left arm and left face. At this time, patient was admitted for further workup. He has poor recollection of his hospital stay. Neuroimaging: CT brain (07/24/2024): No acute intracranial abnormality CTA head/neck (07/24/2024): No LVO. No stenosis or injury identified throughout his vasculature. MRI brain (07/25/2024): Few foci of abnormal subcortical and periventricular white matter signal in the cerebral hemispheres. Nonspecific but consistent with chronic ischemic white matter disease. Routine inpatient EEG (07/25/2024): Normal EKG: Normal sinus rhythm Echo: Normal LV systolic function, EF 65%. LV filling pattern indicates impaired relaxation. Negative for PFO/ASD. Mild diffuse aortic valve thickening. Lipid profile normal, LDL 54. Hemoglobin A1c 5.6%. TSH 1.740. Discharge plan: DAPT x 21 days then aspirin 81 mg monotherapy. 14-day Holter monitor. Atorvastatin 80 mg daily (increased from 40 mg). Interim history: Patient has not had any further episodes like the ones described above since hospital discharge on 07/26/2024. It is reasonable to treat this patient for suspected TIA. A 14-day cardiac event monitor is pending at this time. Patient has nearly completed his 21-day course of aspirin/clopidogrel and will remain on aspirin 81 mg monotherapy after. Differential diagnosis includes cardiac arrhythmia and migraine. Patient has a history of migraines. He reports frontal headaches 3 days/week, lasting half a day. Severe headaches occur 1-2 times per month. He experiences an aura at times where he gets floaters in his vision. He has associated nausea and photophobia. He denies phonophobia. No specific triggers were identified. Treatment of modest benefit includes magnesium oxide 400mg daily and as needed Tylenol, ibuprofen, or Excedrin. Patient had a cardiac workup in October 2023 after experiencing severe chest pain. He states that workup included a cardiac cath and 14-day Holter monitor that were both negative for any abnormal findings. At this time, patient was under a significant amount of stress and it was deemed to be related to anxiety. Patient experiences both physical and mental stress at his job. His reports that he is a very hard worker and has a hard time relaxing after his workday is complete. 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 He reports poor sleep quality averaging between 4 and 8 hours per night. He has difficulty falling asleep and staying asleep due to ruminating thoughts. Seizure is lower on the list of differential diagnoses. Routine EEG was interpreted as normal. There were no structural abnormalities identified on imaging. Episodes did not involve any motor signs, visual changes, or bladder/bowel dysfunction. He did have subtle paresthesias noted on his left face and left arm. On exam today, his left (more content not included)... Normal [facility] Absolute lymphocyte countOrd ered By: Ileana Marimar on 07-25-2024 Lymphocytes Auto (Unsp spec) [#/Vol] 1.58 10*3/uL 0.83-4.51 [facility] Absolute neutrophil countOrd ered By: [facility] on 07-25-2024 Neutrophils (Bld) [#/Vol] 4.5 10*3/uL 2.0-7.7 [facility] Anion gap in Serum or Plasma Ordered By: Ileana Marimar on 07-25-2024 Anion gap [Moles/Vol] 10 mmol/L 5-15 [facility] Automated lymphocyte count a s percentage of total leukocytesOrdered By: [facility] Marimar on 07-25-2024 Lymphocytes/100 WBC Auto (Unsp spec) 23.5 % 19-41 [facility] BUN/creatinine ratioOrdered By: [facility] Marimar on 07-25-2024 Urea nitrogen/Creatinine [Mass ratio] 11.4 mg/mg 10-20 [facility] Basophil percentageOrdered B y: Ileana Marimar on 06-04-2025 Basophils/100 WBC (Bld) 0.6 % 0-1 [facility] Bilirubin, totalOrdered By: Ileana Minaya on 07-25-2024 Bilirubin [Mass/Vol] 0.99 mg/dL 0.00-1.30 [facility] Brain without Contraston Brain without Contrast [facility] Imaging Services [address] [place] [address] Brain without Contrast MR#: [id number] Acct: [id number] Name: TEODORA GRIFFITH Rep #: [id number] : 1965 M 59 From: Francisco Hernandez MD PCP: Rehana Ceja PHARMACOGENETICIST-C Status: ADM JANNIE Study: Brain without Contrast Date of Exam: 07/25/24 Exam# [id number] Ordering Dr: Ileana Minaya MD PROCEDURE: BRAIN WITHOUT CONTRAST 07/25/2024 REASON FOR EXAM: Transient confusion and headache. TECHNIQUE: Noncontrast brain MRI. Multiplanar and multisequence images were obtained. COMPARISON: CT brain without contrast and CTA head and neck with contrast, 07/24/2024. FINDINGS: There is a normal sulcal pattern and gyral configuration. There are few scattered foci of punctate periventricular and subcortical white matter signal in both cerebral hemispheres consistent with chronic ischemic white matter disease. Hypertension could cause a similar appearance. There is no evidence of acute intracranial hemorrhage or infarction. The diamond-white differentiation is well preserved. There is no evidence of restricted diffusion. The ventricles and basilar cisterns are normal. There are normal flow voids demonstrated in the recognized intracranial vessels. The cerebellum and brainstem are unremarkable. The cerebellar pontine angles are normal. The craniovertebral junction is normal. The sella and suprasellar regions are normal. The orbits and retro-orbital regions are unremarkable. There is nasal septal deviation to the left. There is a left-sided nasal spur. The paranasal sinuses are clear. The mastoid air cells are clear. There is a bone cyst in the right parietal bone near the vertex. There is normal bone marrow signal in the skull base and calvarium. MRI/Brain without Contrast IMPRESSION: 1. Few foci of abnormal subcortical and periventricular white matter signal in the cerebral hemispheres. Nonspecific but consistent with chronic ischemic white matter disease. 2. Other findings as noted. Reading Location: [id number] CC: BIPIN Ceja; Dr. Ileana Minaya MD Electronic Imaging System Operator: Signed Normal [facility] CBC W/Diff, Automatedon 06-0 Absolute Lymph 1.58 X10 3/uL Normal 0.83-4.51 [facility] Comment on above: Performed By: #### L 501.9985, L501.9520, L100.0100, L500.4100, L500.4050 #### [facility] [address] [place], [address] Absolute Neut 4.5 X10 3/uL Normal 2.0-7.7 [facility] Comment on above: Performed By: #### L 501.9985, L501.9520, L100.0100, L500.4100, L500.4050 #### [facility] [address] [place], [address] Basophils/100 WBC (Bld) 0.6 % Normal 0-1 [facility] Comment on above: Performed By: #### L 501.9985, L501.9520, L100.0100, L500.4100, L500.4050 #### [facility] [address] [place], [address] Eosinophils/100 WBC (Bld) 2.1 % Normal 0-5 [facility] Comment on above: Performed By: #### L 501.9985, L501.9520, L100.0100, L500.4100, L500.4050 #### [facility] [address] [place], [address] Erythrocyte distribution width (RBC) [Ratio] 11.9 % Normal 11.6-14.6 [facility] Comment on above: Performed By: #### L 501.9985, L501.9520, L100.0100, L500.4100, L500.4050 #### [facility] [address] [place], [address] Hematocrit (Bld) [Volume fraction] 40.4 % Normal 40-54 [facility] Comment on above: Performed By: #### L 501.9985, L501.9520, L100.0100, L500.4100, L500.4050 #### [facility] [address] [place], [address] Hemoglobin (Bld) [Mass/Vol] 14.1 g/dL Normal 13.0-16.5 [facility] Comment on above: Performed By: #### L 501.9985, L501.9520, L100.0100, L500.4100, L500.4050 #### [facility] [address] [place], [address] IG% 0.300 Normal 0.0-0.9 [facility] Comment on above: Result Comment: IG% - Immature Granulocytes (promyelocytes, myelocytes and metamyelocytes) > 1% indicates that a LEFT SHIFT is Present. Performed By: #### L 501.9985, L501.9520, L100.0100, L500.4100, L500.4050 #### [facility] [address] [place], [address] Lymphocytes/100 WBC (Bld) 23.5 % Normal 19-41 [facility] Comment on above: Performed By: #### L 501.9985, L501.9520, L100.0100, L500.4100, L500.4050 #### [facility] [address] [place], [address] MCH (RBC) [Entitic mass] 30.7 pg Normal 27.0-32.0 [facility] Comment on above: Performed By: #### L 501.9985, L501.9520, L100.0100, L500.4100, L500.4050 #### [facility] [address] [place], [address] MCHC (RBC) [Mass/Vol] 34.9 g/dL Normal 32-36 [facility] Comment on above: Performed By: #### L 501.9985, L501.9520, L100.0100, L500.4100, L500.4050 #### [facility] [address] [place], [address] MCV (RBC) [Entitic vol] 88.0 fL Normal 80-94 [facility] Comment on above: Performed By: #### L 501.9985, L501.9520, L100.0100, L500.4100, L500.4050 #### [facility] [address] [place], [address] Monocytes/100 WBC (Bld) 7.4 % Normal 0-10 [facility] Comment on above: Performed By: #### L 501.9985, L501.9520, L100.0100, L500.4100, L500.4050 #### [facility] [address] [place], [address] Neutrophils/100 WBC (Bld) 66.1 % Normal 47-70 [facility] Comment on above: Performed By: #### L 501.9985, L501.9520, L100.0100, L500.4100, L500.4050 #### [facility] [address] [place], [address] Nucleated RBC (Bld) [#/Vol] 0 10*3/uL Normal 0-5 [facility] Comment on above: Performed By: #### L 501.9985, L501.9520, L100.0100, L500.4100, L500.4050 #### [facility] [address] [place], [address] Platelet mean volume (Bld) [Entitic vol] 9.0 fL Normal 6.2-12.0 [facility] Comment on above: Performed By: #### L 501.9985, L501.9520, L100.0100, L500.4100, L500.4050 #### [facility] [address] [place], [address] Platelets (Bld) [#/Vol] 276 10*3/uL Normal 150-450 [facility] Comment on above: Performed By: #### L 501.9985, L501.9520, L100.0100, L500.4100, L500.4050 #### [facility] [address] [place], [address] RBC (Bld) [#/Vol] 4.59 10*6/uL Low 4.6-6.2 [facility] Comment on above: Performed By: #### L 501.9985, L501.9520, L100.0100, L500.4100, L500.4050 #### [facility] [address] [place], [address] RDW SD 38.2 fl Normal 35.1-43.9 [facility] Comment on above: Performed By: #### L 501.9985, L501.9520, L100.0100, L500.4100, L500.4050 #### [facility] [address] [place], [address] WBC (Bld) [#/Vol] 6.7 10*3/uL Normal 4.4-11.0 [facility] Comment on above: Performed By: #### L 501.9985, L501.9520, L100.0100, L500.4100, L500.4050 #### [facility] [address] [place], [address] Calculated very low density lipoprotein (VLDL) cholesterol measurementOrdered By: Ileana Marimar on 07-25-2024 Calculated very low density lipoprotein (VLDL) cholesterol measurement 12 mg/dL 5-40 [facility] Carbon dioxide, total [Moles /volume] in Central venous bloodOrdered By: Ileana Marimar on 07-25-2024 CO2 [Moles/Vol] 20.4 mmol/L Low 21.0-32.0 [facility] Chloride assayOrdered By: Denia Minaya on 07-25-2024 Chloride [Moles/Vol] 109 mmol/L High 98-108 [facility] Comprehensive Metabolic Prof ilon 07-25-2024 Albumin [Mass/Vol] 3.7 g/dL Normal 3.5-5.0 [facility] Comment on above: Performed By: #### L 501.9985, L501.9520, L100.0100, L500.4100, L500.4050 #### [facility] [address] [place], [address] Albumin/Globulin [Mass ratio] 1.7 {ratio} Normal 0.9-2.4 [facility] Comment on above: Performed By: #### L 501.9985, L501.9520, L100.0100, L500.4100, L500.4050 #### [facility] [address] [place], [address] ALK PHOS 65 U/L Normal 40-129 [facility] Comment on above: Performed By: #### L 501.9985, L501.9520, L100.0100, L500.4100, L500.4050 #### [facility] [address] [place], [address] ALT [Catalytic activity/Vol] 20 U/L Normal <=46 [facility] Comment on above: Performed By: #### L 501.9985, L501.9520, L100.0100, L500.4100, L500.4050 #### [facility] [address] [place], [address] AST [Catalytic activity/Vol] 24 U/L Normal <=37 [facility] Comment on above: Performed By: #### L 501.9985, L501.9520, L100.0100, L500.4100, L500.4050 #### [facility] [address] [place], [address] Bilirubin [Mass/Vol] 0.99 mg/dL Normal 0.00-1.30 [facility] Comment on above: Performed By: #### L 501.9985, L501.9520, L100.0100, L500.4100, L500.4050 #### [facility] [address] [place], [address] BUN/CRE 11.4 RATIO Normal 10-20 [facility] Comment on above: Performed By: #### L 501.9985, L501.9520, L100.0100, L500.4100, L500.4050 #### [facility] [address] [place], [address] Calcium [Mass/Vol] 8.7 mg/dL Normal 7.6-11.0 [facility] Comment on above: Performed By: #### L 501.9985, L501.9520, L100.0100, L500.4100, L500.4050 #### [facility] [address] [place], [address] Chloride [Moles/Vol] 109 mmol/L High 98-108 [facility] Comment on above: Performed By: #### L 501.9985, L501.9520, L100.0100, L500.4100, L500.4050 #### [facility] [address] [place], [address] CO2 [Moles/Vol] 20.4 mmol/L Low 21.0-32.0 [facility] Comment on above: Performed By: #### L 501.9985, L501.9520, L100.0100, L500.4100, L500.4050 #### [facility] [address] [place], [address] Creatinine [Mass/Vol] 0.66 mg/dL Low 0.70-1.20 [facility] Comment on above: Performed By: #### L 501.9985, L501.9520, L100.0100, L500.4100, L500.4050 #### [facility] [address] [place], [address] ECRCL 176.86 ml/min Normal 50-250 [facility] Comment on above: Performed By: #### L 501.9985, L501.9520, L100.0100, L500.4100, L500.4050 #### [facility] [address] [place], [address] GAP 10 Normal 5-15 [facility] Comment on above: Performed By: #### L 501.9985, L501.9520, L100.0100, L500.4100, L500.4050 #### [facility] [address] [place], [address] GFR/1.73 sq M.predicted among non-blacks MDRD (S/P/Bld) [Vol rate/Area] 108 mL/min/{1.73_m2} Normal >60 [facility] Comment on above: Result Comment: mL/m in/1.73m2 CKD-EPI Creatinine Equation (2020) Performed By: #### L 501.9985, L501.9520, L100.0100, L500.4100, L500.4050 #### [facility] [address] [place], [address] Globulin (S) [Mass/Vol] 2.1 g/dL Low 2.2-4.2 [facility] Comment on above: Performed By: #### L 501.9985, L501.9520, L100.0100, L500.4100, L500.4050 #### [facility] [address] [place], [address] Glucose [Mass/Vol] 97 mg/dL Normal 70-99 [facility] Comment on above: Performed By: #### L 501.9985, L501.9520, L100.0100, L500.4100, L500.4050 #### [facility] [address] [place], [address] Potassium [Moles/Vol] 3.9 mmol/L Normal 3.3-5.1 [facility] Comment on above: Performed By: #### L 501.9985, L501.9520, L100.0100, L500.4100, L500.4050 #### [facility] [address] [place], [address] Sodium [Moles/Vol] 139 mmol/L Normal 133-145 [facility] Comment on above: Performed By: #### L 501.9985, L501.9520, L100.0100, L500.4100, L500.4050 #### [facility] [address] [place], [address] T PROT 5.8 g/dL Low 5.9-8.4 [facility] Comment on above: Performed By: #### L 501.9985, L501.9520, L100.0100, L500.4100, L500.4050 #### [facility] [address] [place], [address] Urea nitrogen [Mass/Vol] 8 mg/dL Normal 4-19 [facility] Comment on above: Performed By: #### L 501.9985, L501.9520, L100.0100, L500.4100, L500.4050 #### [facility] [address] [place], [address] Echo Completeon 07-25-2024 Echo Complete [facility] [address] [place] [address] Echo Complete 07/25/24 0834 MR#: [id number] Acct: [id number] Name: TEODORA GRIFFITH Rep #: [id number] : 1965 59 From: Omar Medina MD Attending Dr: Dr. Olivier Aleman, DO Status: ADM JANNIE Ordering Dr: Ileana Minaya MD Date: 07/25/24 Location: ICU Sex: M C Admitted: 07/24/24 Reason For Study Reason For Study: TIA/CVA Procedure This was a 2D Doppler, Color Flow transthoracic echocardiogram. Exam performed portable in ICU/CCU. Left Ventricle Normal size and thickness. The LV systolic function is normal. EF is 65 %. LV filling pattern indicates impaired relaxation. Right Ventricle Normal right ventricle. Atria The left and right atria are normal. Bubble contrast study is negative for PFO/ASD. Mitral Valve Trivial mitral valve insufficiency. Tricuspid Valve Trivial tricuspid valve insufficiency. Normal pulmonary artery pressure. Aortic Valve Trisinus/trileaflet aortic valve. Mild diffuse aortic valve thickening. There is no aortic stenosis. No aortic valve insufficiency. Pulmonic Valve The pulmonic valve is not well visualized. Great Vessels Normal sized aortic root. Pericardium/Pleural No pericardial effusion. Medication Performed a rapid injection of agitated mix of 9 cc saline and 1cc air to assess for atrial septal defect. X 2. MMode/2D Measurements Calculations LVIDd: 5.2 cm IVSd: 1.0 cm Ao root diam: 3.3 cm LVIDs: 3.0 cm LVPWd: 1.0 cm RVDd: 3.1 cm FS: 41.7 % asc Aorta Diam: 3.8 cm LAV(MOD-bp): 48.1 ml LVAd ap4: 30.3 cm2 LAV(MOD-bp) Indexed: 26.0 ml/m2 LVLd ap4: 8.8 cm LAV(MOD-sp2): 52.2 ml EDV(MOD-sp4): 90.8 ml LAV(MOD-sp4): 41.6 ml EDV(sp4-el): 88.4 ml LVAs ap4: 18.0 cm2 LVLs ap4: 7.7 cm ESV(MOD-sp4): 37.0 ml ESV(sp4-el): 35.9 ml EF(MOD-sp4): 59.2 % EF(sp4-el): 59.4 % LVAd ap2: 24.6 cm2 SV(MOD-sp4): 53.7 ml SV(MOD-sp2): 37.6 ml LVLd ap2: 8.6 cm SI(MOD-sp4): 29.1 ml/m2 SI(MOD-sp2): 20.3 ml/m2 EDV(MOD-sp2): 61.1 ml EDV(sp2-el): 60.0 ml LVAs ap2: 13.9 cm2 LVLs ap2: 7.0 cm ESV(MOD-sp2): 23.6 ml ESV(sp2-el): 23.5 ml EF(MOD-sp2): 61.4 % SV(sp4-el): 52.5 ml LA dimension(2D): 3.7 cm LA A4 area: 16.5 cm2 RA A4 area: 14.0 cm2 TAPSE: 1.8 cm Time Measurements MV dec time: 0.19 sec Doppler Measurements Calculations MV E max rachel: 58.9 cm/sec Lat Peak E' Rachel: 16.1 cm/sec Med Peak E' Rachel: 9.4 cm/sec MV A max rachel: 79.6 cm/sec E/E' lat: 3.6 E/E' med: 6.3 MV E/A: 0.74 MV V2 max: 79.3 cm/sec MV P1/2t max rachel: 69.5 cm/sec Ao V2 max: 115.7 cm/sec MV max P.5 mmHg MV P1/2t: 59.5 msec Ao max P.4 mmHg MV V2 mean: 44.0 cm/sec Ao V2 mean: 73.0 cm/sec MV mean P.88 mmHg MV dec slope: 341.7 cm/sec2 Ao mean P.4 mmHg MV V2 VTI: 20.5 cm MVA(P1/2t): 3.7 cm2 Ao V2 VTI: 20.3 cm AV (velocity ratio): 0.77 LV V1 max: 91.0 cm/sec PA V2 max: 102.5 cm/sec TR max rachel: 214.9 cm/sec LV V1 max P.3 mmHg PA V2 mean: 71.4 cm/sec TR max P.5 mmHg LV V1 mean P.6 mmHg LV V1 mean: 60.5 cm/sec LV V1 VTI: 15.6 cm ECHO/Echo Complete Interpretation Summary The LV systolic function is normal. EF is 65 %. LV filling pattern indicates impaired relaxation. Bubble contrast study is negative for PFO/ASD. Mild diffuse aortic valve thickening. Ordering Physician: Ileana Minaya Referring Physician: Rehana Ceja Performed By: Kaylie Ramirez RDCS, RVT 07/25/24 1136 Date Omar Medina MD CC: BIPIN Ceja; Dr. Ileana Minaya MD; Dr. Olivier Aleman DO Date Dictated: 07/25/24 0834 Date Transcribed: 07/25/24 113 Electronic Imaging System Operator: Signed Normal [facility] Echocardiogram study reportO rdered By: Omar Medina on 07-25-2024 Study report [facility] Cardiovascular Services [address] [place] [address] Echo Complete 07/25/24 0834 MR#: [id number] Acct: [id number] Name: TEODORA GRIFFITH Rep #:[id number] : 1965 59 From: Omar Medina MD Attending Dr: Dr. Olivier Aleman, DO Status: ADM JANNIE Ordering Dr: Ileana Minaya MD Date: 07/25/24 Location: ICU Sex: M C Admitted: 07/24/24 Reason For Study Reason For Study: TIA/CVA Procedure This was a 2D Doppler, Color Flow transthoracic echocardiogram. Exam performed portable in ICU/CCU. Left Ventricle Normal size and thickness. The LV systolic function is normal. EF is 65 %. LV filling pattern indicates impaired relaxation. Right Ventricle Normal right ventricle. Atria The left and right atria are normal. Bubble contrast study is negative for PFO/ASD. Mitral Valve Trivial mitral valve insufficiency. Tricuspid Valve Trivial tricuspid valve insufficiency. Normal pulmonary artery pressure. Aortic Valve Trisinus/trileaflet aortic valve. Mild diffuse aortic valve thickening. There isno aortic stenosis. No aortic valve insufficiency. Pulmonic Valve The pulmonic valve is not well visualized. Great Vessels Normal sized aortic root. Pericardium/Pleural No pericardial effusion. Medication Performed a rapid injection of agitated mix of 9 cc saline and 1cc air to assessfor atrial septal defect. X 2. MMode/2D Measurements & Calculations LVIDd: 5.2 cm IVSd: 1.0 cm Ao root diam: 3.3 cm LVIDs: 3.0 cm LVPWd: 1.0 cm RVDd: 3.1 cm FS: 41.7 % asc Aorta Diam: 3.8 cm LAV(MOD-bp): 48.1 ml LVAd ap4: 30.3 cm2 LAV(MOD-bp) Indexed: 26.0 ml/m2 LVLd ap4: 8.8 cm LAV(MOD-sp2): 52.2 ml EDV(MOD-sp4): 90.8 ml LAV(MOD-sp4): 41.6 ml EDV(sp4-el): 88.4 ml LVAs ap4: 18.0 cm2 LVLs ap4: 7.7 cm ESV(MOD-sp4): 37.0 ml ESV(sp4-el): 35.9 ml EF(MOD-sp4): 59.2 % EF(sp4-el): 59.4 % LVAd ap2: 24.6 cm2 SV(MOD-sp4): 53.7 ml SV(MOD-sp2): 37.6 ml LVLd ap2: 8.6 cm SI(MOD-sp4): 29.1 ml/m2 SI(MOD-sp2): 20.3 ml/m2 EDV(MOD-sp2): 61.1 ml EDV(sp2-el): 60.0 ml LVAs ap2: 13.9 cm2 LVLs ap2: 7.0 cm ESV(MOD-sp2): 23.6 ml ESV(sp2-el): 23.5 ml EF(MOD-sp2): 61.4 % SV(sp4-el): 52.5 ml LA dimension(2D): 3.7 cm LA A4 area: 16.5 cm2 RA A4 area: 14.0 cm2 TAPSE: 1.8 cm Time Measurements MV dec time: 0.19 sec Doppler Measurements & Calculations MV E max rachel: 58.9 cm/sec Lat Peak E' Rachel: 16.1 cm/sec Med Peak E' Rachel: 9.4 cm/sec MV A max rachel: 79.6 cm/sec E/E' lat: 3.6 E/E' med: 6.3 MV E/A: 0.74 MV V2 max: 79.3 cm/sec MV P1/2t max rachel: 69.5 cm/sec Ao V2 max: 115.7 cm/sec MV max P.5 mmHg MV P1/2t: 59.5 msec Ao max P.4 mmHg MV V2 mean: 44.0 cm/sec Ao V2 mean: 73.0 cm/sec MV mean P.88 mmHg MV dec slope: 341.7 cm/sec2 Ao mean P.4 mmHg MV V2 VTI: 20.5 cm MVA(P1/2t): 3.7 cm2 Ao V2 VTI: 20.3 cm AV (velocity ratio): 0.77 LV V1 max: 91.0 cm/sec PA V2 max: 102.5 cm/sec TR max rachel: 214.9 cm/sec LV V1 max P.3 mmHg PA V2 mean: 71.4 cm/sec TR max P.5 mmHg LV V1 mean P.6 mmHg LV V1 mean: 60.5 cm/sec LV V1 VTI: 15.6 cm ECHO/Echo Complete Interpretation Summary The LV systolic function is normal. EF is 65 %. LV filling pattern indicates impaired relaxation. Bubble contrast study is negative for PFO/ASD. Mild diffuse aortic valve thickening. Ordering Physician: Ileana Minaya Referring Physician: Rehana Ceja Performed By: Kaylie Ramirez, YANICK, RVT 07/25/24 1136 Date _ Omar Medina MD CC: BIPIN Ceja; Dr. Ileana Minaya MD; Dr. Olivier Aleman DO ~ Date Dictated: 07/25/24 0834 Date Transcribed: 07/25/24 113 Electronic Imaging System Operator: Signed [facility] Work Phone: Eosinophil percentageOrdered By: Ileana Minaya on 07-25-2024 Eosinophils/100 WBC (Bld) 2.1 % 0-5 [facility] Erythrocyte distribution wid th ratioOrdered By: Ileana Minaya on 07-25-2024 Erythrocyte distribution width (RBC) [Ratio] 11.9 % 11.6-14.6 [facility] Erythrocyte distribution wid th standard deviationOrdered By: Ileana Minaya on 07-25-2024 Erythrocyte distribution width (RBC) [Ratio] 38.2 fl 35.1-43.9 [facility] Glomerular filtration rate ( GFR) estimation/1.73 sq m using serum, plasma, or whole bOrdered By: Ileana Minaya on 07-25-2024 GFR/1.73 sq M.predicted among non-blacks MDRD (S/P/Bld) [Vol rate/Area] 108 mL/min/{1.73_m2} >60 [facility] Comment on above: mL/min/1.73m2 CKD-EP I Creatinine Equation (2020) Hematocrit Auto (Bld) [Volum e fraction]Ordered By: Ileana Minaya on 07-25-2024 Hematocrit (Bld) [Volume fraction] 40.4 % 40-54 [facility] Hemoglobin A1con 07-25-2024 HbA1c (Bld) [Mass fraction] 5.6 % Normal <=5.6 [facility] Comment on above: Result Comment: Norm al < 5.7 % Prediabetic 5.7 - 6.4 % Diabetic >or= 6.5 % Please note range changes. Performed By: #### L 501.9985, L501.9520, L100.0100, L500.4100, L500.4050 #### [facility] Laboratory [facility] [address] [place], [place], [id number] Hemoglobin A1c percentageOrd ered By: Ileana Minaya on 07-25-2024 HbA1c (Bld) [Mass fraction] 5.6 % <5.7 [facility] Comment on above: Normal < 5.7 % Predi abetic 5.7 - 6.4 % Diabetic >or= 6.5 % Please note range changes. Hemoglobin measurementOrdere d By: Ileana Minaya on 07-25-2024 Hemoglobin (Bld) [Mass/Vol] 14.1 g/dL 13.0-16.5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 Acct: [id number] Name: TEODORA GRIFFITH Rep #: [id number] : 1965 M 59 From: Alexandro Cherry MD PCP: BIPIN [place] Status: [facility] ER Study: CTA Head AND Neck W/ Contrast Date of Exam: Exam# [id number] Ordering Dr: Geronimo Morales DO PROCEDURE: CTA HEAD AND NECK W/ CONTRAST 07/24/2024 REASON FOR EXAM: TIA/CVA TECHNIQUE: CTA imaging of the head and neck from the aortic arch to the skull vertex with out contrast and with intravenous contrast. Multiplanar and multisequence images were obtained. CONTRAST: Isovue 370 VOLUME: 100 mL. One or more dose reduction techniques were used (e.g., Automated exposure control, adjustment of the mA and/or kV according to patient size, use of iterative reconstruction technique). RADIATION DOSE SUMMARY: CTDlvol: 53.97+ 18.86 mGy DLP: 807.52 mGycm COMPARISON: None. FINDINGS: The common carotid arteries are patent without evidence of stenosis or injury. The internal carotid arteries are patent without evidence of stenosis or injury. The cervical vertebral arteries are patent without evidence of stenosis or injury. Atherosclerosis of the carotid siphons without significant stenosis. The yhzakp-yv-Wblhja is patent. The anterior cerebral, anterior communicating, middle cerebral, and posterior cerebral arteries are patent. The vertebrobasilar system is patent. The lung apices are clear. CT/CTA Head AND Neck W/ Contrast IMPRESSION: No acute arterial abnormality of the head or neck. Reading Location: [place] [address] CC: BIPIN Ceja; Dr. Geronimo Morales DO Electronic Imaging System Operator: Signed Normal [facility] Carbon dioxide, total [Moles /volume] in Central venous bloodOrdered By: Geronimo Morales on 07-24-2024 CO2 [Moles/Vol] 19.1 mmol/L Low 21.0-32.0 [facility] Chest 1 View (Portable)on Chest 1 View (Portable) [facility] Imaging Services [address] [place], [place] [address] Chest 1 View (Portable) MR#: [id number] Acct: [id number] Name: JUANJO GIRFFITHLAS ROEL Rep #: [id number] : 1965 M 59 From: Osmar Marie MD PCP: BIPIN [place] Status: REG ER Study: Chest 1 View (Portable) Date of Exam: 07/24/24 Exam# [id number] Ordering Dr: Geronimo Morales DO PROCEDURE: CHEST 1 VIEW (PORTABLE) 07/24/2024 REASON FOR EXAM: TIA/CVA TECHNIQUE: Frontal view of the chest. COMPARISON: Chest radiograph dated 11/09/2023 FINDINGS: Heart: The heart size is normal. Lungs: The lungs are clear. No significant pleural effusion. Bones: Degenerative changes are identified within the thoracic spine. RAD/Chest 1 View (Portable) IMPRESSION: No acute cardiopulmonary abnormality. Reading Location: [id number] CC: PHARMACOGENETICIST-C Rehana Ceja; Dr. Geronimo Morales DO Electronic Imaging System Operator: Signed Normal [facility] Chloride assayOrdered By: Dominick Morales on 07-24-2024 Chloride [Moles/Vol] 105 mmol/L 98-108 [facility] Emergency Department Summary on 07-24-2024 Emergency Department Summary [facility] Medical Records Department [address] [place] [address] Emergency Department Summary 07/24/24 MR#: [id number] Acct: [id number] Name: TEODORA GRIFFITH Rep #: [id number] : 1965 59 From: Geronimo Morales DO PCP: BIPIN [place] Status:REG ER Location: ED HPI History of Present Illness Chief Complaint: Neuro S/Sx Narrative Narrative: Chief complaint and HPI: Concern for recurrent TIAs. 59-year-old male with past medical history of HTN, HLD presents for evaluation for concern of TIAs. History taken by patient as well as significant other. Significant other states on 07/14 she came home and found the patient lying in the grass. At that time, he could not remember what he was doing or what he had done earlier in the day. It lasted several minutes but then resolved and patient's memory returned. He was lightheaded at that time. Patient followed up with his PCP regarding this and scheduled further testing for evaluation of possible TIA. Told the patient to present to the ED if this reoccurs. Patient states that 6 PM today he had an episode of 30 seconds where he had total memory loss. Associated symptom at that time was some pain in his left upper extremity. He now endorses some slight loss of sensation only in his shoulder on the left. found out and brought the patient for evaluation. Patient currently denies any fever, chills, headache, shortness of breath, chest pain abdominal pain, nausea, vomiting. Denies any aphasia, dysarthria, weakness. Review of systems: See HPI Medications: As listed on the chart Allergies: As listed on the chart PFSH: Per chart Vital signs: As listed on the chart. Reviewed. Physical exam: Gen: A O x3, NAD Head: Normocephalic, atraumatic Eyes: No sclera icterus, conjunctiva clear, PERRL, EOMI ENT: Moist mucous membranes, No facial asymmetry Neck: Trachea midline, No JVD CV: RRR, no murmurs, no peripheral edema Resp: Lungs CTA BL, no w/r/c GI: Abd soft, non-distended, non-tender, no r/r/g Musc: Full ROM, no deformity, strength +5/5 in all extremities, no pronator drift, no ataxia Skin: Warm, dry, intact Neuro: Alert, oriented, grossly intact, sensation intact other than endorses dull sensation to the left shoulder only compared to the right, no aphasia, no dysarthria Psych: Cooperative, appropriate mood and affect [facility] PFS Medical History Left carpal tunnel syndrome Bilateral knee pain Former smoker Obesity (BMI 30.0-34.9) Incisional hernia Hypokalemia Atypical chest pain Iron deficiency anemia Elevated PSA GERD (gastroesophageal reflux disease) Essential (primary) hypertension Lightheadedness SOB (shortness of breath) Osteoarthritis of left knee Left knee pain Arthritis Restless legs Migraine headache Chewing tobacco nicotine dependence Home Medications ???Medication ???Instructions ???Recorded ???Last Taken ???Type amlodipine 5 mg tablet 5 mg PO DAILY 30 days #30 tabs Unknown Rx aspirin 81 mg tablet,delayed 81 mg PO BREAKFAST 90 days #90 tab s 11/10/23 Unknown Rx release atorvastatin 10 mg tablet 10 mg PO QHS 90 days #90 tabs 10/22 11/14 Unknown Rx metoprolol succinate 25 mg 25 mg PO DAILY 07/24/24 Unknown Hi story tablet,extended release 24 hr Allergy/AdvReac Type Severity Reaction Status Date / Time shellfish derived Allergy Anaphylaxis Verified 07/24/24 21:03 Family History Mother Heart disease Diabetes Hypertension Father Cancer Kidney disease Heart disease Surgical History Hx of appendectomy Hx of arthroscopy of shoulder Hx of inguinal hernia repair H/O hand surgery Social History household members: spouse Smoking Status: Current every day smoker tobacco type: smokeless tobacco alcohol intake: never substance use type: does not use EXAM Physical Exam Const Vital Signs: 07/24/24 21:03 07/24/24 23:02 Temperature 97.5 F L Temperature Source Temporal Pulse Rate 92 82 Respiratory Rate 18 20 H Blood Pressure 130/102 H 124/92 H Blood Pressure Mean 111 102 Pulse Ox 100 96 Oxygen Delivery Method Room Air MDM MDM MDM Narrative Medical decision making narrative: 59-year-old male with past medical history of HTN, HLD presents for evaluation for concern of TIAs. Patient has had 2 episodes of memory loss including today and on 07/14. Memory loss has resolved currently. Only deficit is duller sensation of the left shoulder compared to the right. Last known normal 6 PM. Patient outside the CVA window. Low suspicion for LVO given symptoms and physical exam. Differential diagnosis includes but is not limi (more content not included)... Normal [facility] Eosinophil percentageOrdered By: Geronimo Morales on 07-24-2024 Eosinophils/100 WBC (Bld) 1.1 % 0-5 [facility] Erythrocyte distribution wid th ratioOrdered By: Geronimo Morales on 07-24-2024 Erythrocyte distribution width (RBC) [Ratio] 11.8 % 11.6-14.6 [facility] Erythrocyte distribution wid th standard deviationOrdered By: Geronimo Shine on 07-24-2024 Erythrocyte distribution width (RBC) [Ratio] 37.2 fl 35.1-43.9 [facility] Glomerular filtration rate ( GFR) estimation/1.73 sq m using serum, plasma, or whole bOrdered By: Geronimo Morales on 07-24-2024 GFR/1.73 sq M.predicted among non-blacks MDRD (S/P/Bld) [Vol rate/Area] 101 mL/min/{1.73_m2} >60 [facility] Comment on above: mL/min/1.73m2 CKD-EP I Creatinine Equation (2020) H AND P Exam - [facility] 07-24-2024 H&P Exam - Hospitalist [facility] Medical Records Department [address] [place] [address] H P Exam - Hospitalist 07/24/24 9184 MR#: [id number] Acct: [id number] Name: TEODORA GRIFFITH Rep #: [id number] : 1965 59 From: Ileana Minaya MD PCP: BIPIN [place] Status:ADM JANNIE Location: ICU [id number] HPI - General General Date of Admission: 07/24/24 Date of Service: 07/24/24 Chief Complaint: Transient confusion. HPI Narrative The patient is a 59 y/o M w/ PMHx: Chew tobacco use, Chronic anemia/Fe deficiency anemia, GERD, HTN, HLD, RLS, Migraine headaches who presents to the [facility] ED with history at approximately 7 PM of complete amnesia lasting 15-30 seconds with complete resolution following however he also notes that he had mild dizziness on Tuesday which required him to lay down to avoid passing out prompting PCP evaluation who arrange outpatient evaluation. Patient had similar episode of confusion that was very short-lived on 07/14/2024 with memory resolution completely following. He does state some discomfort to the left shoulder and does have some mild altered sensation to the left shoulder focally as well as occasionally his left cheek. Currently he notes complete resolution of all symptoms. He currently denies any lightheadedness or dizziness. Workup in the ED included T97.5, heart 92, BP 130/102, respiratory rate 18, 100 % room air, CBC with WBC 7.4, he 1 15.2, platelet 326 without marked shift, unremarkable coags, BMP with potassium 3.2, carbon oxide 19.1, glucose 157, troponin 7, CT of the brain with no acute intracranial findings, CTA head and neck with no acute abnormalities, chest x-ray with no acute cardiopulmonary findings, EKG with SR without evidence of acute ischemia. In the ED patient ministered 1 L normal saline and potassium 40 mg p.o. x 1. UA pending upon evaluation. PFSH Medical History Left carpal tunnel syndrome Bilateral knee pain Former smoker Obesity (BMI 30.0-34.9) Incisional hernia Hypokalemia Atypical chest pain Iron deficiency anemia Elevated PSA GERD (gastroesophageal reflux disease) Essential (primary) hypertension Lightheadedness SOB (shortness of breath) Osteoarthritis of left knee Left knee pain Arthritis Restless legs Migraine headache Chewing tobacco nicotine dependence Home Medications ???Medication ???Instructions ???Recorded ???Last Taken ???Type amlodipine 5 mg tablet 5 mg PO DAILY 30 days #30 tabs Unknown Rx aspirin 81 mg tablet,delayed 81 mg PO BREAKFAST 90 days #90 tab s 11/10/23 Unknown Rx release atorvastatin 10 mg tablet 10 mg PO QHS 90 days #90 tabs 10/22 11/14 Unknown Rx metoprolol succinate 25 mg 25 mg PO DAILY 07/24/24 Unknown Hi story tablet,extended release 24 hr Allergy/AdvReac Type Severity Reaction Status Date / Time shellfish derived Allergy Anaphylaxis Verified 07/24/24 21:03 Family History Mother Heart disease Diabetes Hypertension Father Cancer Kidney disease Heart disease Surgical History Hx of appendectomy Hx of arthroscopy of shoulder Hx of inguinal hernia repair H/O hand surgery Social History household members: spouse Smokeless tobacco user: chewing tobacco alcohol intake: never substance use type: does not use ROS ROS Narrative Admission Review of Systems: CONSTITUTIONAL: No weight loss, fever, chills, + weakness or fatigue. HEENT: + Transient facial and left upper extremity paresthesias. Eyes: No visual loss, blurred vision, double vision or yellow sclerae. Ears, Nose, Throat: No hearing loss, sneezing, congestion, runny nose or sore throat. SKIN: No rash or itching, lesions, wounds. CARDIOVASCULAR: + Episode of lightheadedness/dizziness with near syncopal sensation. No chest pain, chest pressure or chest discomfort, palpitations, edema, orthopnea. RESPIRATORY: No shortness of breath, cough or sputum, wheezing, hemoptysis. GASTROINTESTINAL: No anorexia, nausea, vomiting or diarrhea, abdominal pain, melena, BRBPR. GENITOURINARY: No dysuria, frequency, urgency or retention. NEUROLOGICAL: + Transient episodes of amnesia, left upper extremity specifically shoulder and occasional facial paresthesias no headache, dizziness, syncope, paralysis, ataxia, focal weakness, change in bowel or bladder control, seizure. MUSCULOSKELETAL: + muscle, back pain, joint pain or stiffness. HEMATOLOGIC: No anemia, bleeding or bruising. LYMPHATICS: No enlarged nodes. No history of splenectomy. PSYCHIATRIC: No history of depression or anxiety. ENDOCRINOLOGIC: No reports of sweating, cold or heat intolerance. No polyuria or polydipsia. ALLERGIES: + History of shellfish anaphyl (more content not included)... Normal [facility] Hematocrit Auto (Bld) [Volum e fraction]Ordered By: Geronimo Morales on 07-24-2024 Hematocrit (Bld) [Volume fraction] 42.9 % 40-54 [facility] Hemoglobin measurementOrdere d By: Geronimo Morales on 07-24-2024 Hemoglobin (Bld) [Mass/Vol] 15.2 g/dL 13.0-16.5 [facility] Immature granulocytes/100 WB C Auto (Bld)Ordered By: Geronimo Morales on 07-24-2024 Immature granulocytes/100 WBC (Bld) 0.700 % 0.0-0.9 [facility] Comment on above: IG% - Immature Granu locytes (promyelocytes, myelocytes and metamyelocytes) > 1% indicates that a LEFT SHIFT is Present. International normalized rat io (INR) calculationOrdered By: Geronimo Morales on 07-24-2024 INR Coag (Bld) [Relative time] 1.1 {INR} [facility] Ketones Test strip Ql (U)Ord ered By: Geronimo Morales on 07-24-2024 Ketones Ql (U) Negative Negative [facility] L501.4021on 07-24-2024 Trop T High Sen 7 ng/L Normal <=22 [facility] Comment on above: Performed By: #### L 501.4021 ####[facility] [address] [place], [place], [address] MCV (mean corpuscular volume ) determinationOrdered By: Geronimo Morales on 07-24-2024 MCV (RBC) [Entitic vol] 86.5 fL 80-94 [facility] Magnesiumon 07-24-2024 Magnesium [Mass/Vol] 1.8 mg/dL Normal 1.5-2.2 [facility] Comment on above: Performed By: #### L 501.5200 ####[facility] [address] [place], [place], [id number] Magnesium measurement (mass/ volume)Ordered By: Geronimo Morales on 07-24-2024 Magnesium (Unsp spec) [Mass/Vol] 1.8 mg/dL 1.5-2.2 [facility] Mean corpuscular hemoglobin (MCH) determinationOrdered By: Geronimo Morales on 07-24-2024 MCH (RBC) [Entitic mass] 30.6 pg 27.0-32.0 [facility] Mean corpuscular hemoglobin concentration (MCHC) determinationOrdered By: Geronimo Morales on 07-24-2024 MCHC (RBC) [Mass/Vol] 35.4 g/dL 32-36 [facility] Mean platelet volume determi nationOrdered By: Geronimo Morales on 07-24-2024 Platelet mean volume (Bld) [Entitic vol] 8.8 fL 6.2-12.0 [facility] Microscopic analysis of urin e for red blood cells (RBC)Ordered By: Geronimo Morales on 07-24-2024 Microscopic analysis of urine for red blood cells (RBC) 0 SEEN /hpf 0-5 [facility] Monocyte percentageOrdered B y: Geronimo Morales on 07-24-2024 Monocytes/100 WBC (Bld) 5.5 % 0-10 [facility] Mucus LM Ql (Urine sed)Order ed By: Geronimo Morales on 07-24-2024 Mucus Ql (Urine sed) 0 SEEN /hpf [facility] Neutrophil percentageOrdered By: Geronimo Morales on 07-24-2024 Neutrophils/100 WBC (Bld) 75.1 % High 47-70 [facility] Nitrite Test strip Ql (U)Ord ered By: [facility] Center[facility] on 07-24-2024 Nitrite Ql (U) Negative Negative [facility] Nucleated red blood cell per centageOrdered By: Geronimo Morales on 07-24-2024 Nucleated RBC/100 WBC (Bld) [Ratio] 0 % 0-5 [facility] Partial Thromboplast Timeon 07-24-2024 aPTT Coag (Bld) [Time] 27.5 s Normal 24.1-36.2 [facility] Comment on above: Performed By: #### L 500.2500, L100.0100, L300.3900, L300.4310 ####[facility] [address] [place], [address] Platelet countOrdered By: Domiinck Morales on 07-24-2024 Platelets (Bld) [#/Vol] 326 10*3/uL 150-450 [facility] Potassium measurement (mass/ volume)Ordered By: Ann [facility] CenterGarry on 07-24-2024 Potassium (Unsp spec) [Mass/Vol] 3.2 mmol/L Low 3.3-5.1 [facility] Comment on above: Hemolysis present, R esults could be affected. Protein Test strip Ql (U)Ord ered By: Geronimo Morales on 07-24-2024 Protein Ql (U) 15 mg/dl High Negative [facility] Prothrombin Time w/INRon INR Coag (PPP) [Relative time] 1.1 {INR} Normal [facility] Comment on above: Performed By: #### L 500.2500, L100.0100, L300.3900, L300.4310 ####[facility] [address] [place], [address] PT Coag (PPP) [Time] 14.3 s Normal 11.7-14.9 [facility] Comment on above: Performed By: #### L 500.2500, L100.0100, L300.3900, L300.4310 ####[facility] [address] [place], [address] Prothrombin timeOrdered By: Geronimo Morales on 07-24-2024 PT Coag (PPP) [Time] 14.3 s 11.7-14.9 [facility] RBC Auto (Bld) [#/Vol]Ordere d By: Geronimo Morales on 07-24-2024 RBC (Bld) [#/Vol] 4.96 10*6/uL 4.6-6.2 [facility] Serum creatinine measurement (mass/volume)Ordered By: Geronimo Morales on 07-24-2024 Creatinine [Mass/Vol] 0.83 mg/dL 0.70-1.20 [facility] Serum glucose measurement (m ass/volume)Ordered By: Geronimo Morales on 07-24-2024 Glucose [Mass/Vol] 157 mg/dL High 70-99 [facility] Serum or plasma calcium jonna urement (mass/volume)Ordered By: Geronimo Shine on 07-24-2024 Calcium [Mass/Vol] 9.2 mg/dL 7.6-11.0 [facility] Serum or plasma urea nitroge n measurement (mass/volume)Ordered By: Geronimo Morales on 07-24-2024 Urea nitrogen [Mass/Vol] 9 mg/dL 4-19 [facility] Sodium levelOrdered By: Branden Morales on 07-24-2024 Sodium [Moles/Vol] 139 mmol/L 133-145 [facility] Squamous epithelial cells de tection in urine sediment by light microscopyOrdered By: Geronimo Morales on 07-24-2024 Epithelial cells.squamous LM Ql (Urine sed) 0 SEEN /hpf 0-5 [facility] Troponin T.cardiac [Mass/vol ume] in Serum or Plasma by High sensitivity methodOrdered By: Geronimo Morales on 07-24-2024 Troponin T.cardiac High sensitivity method [Mass/Vol] 7 ng/L <22 [facility] Urinalysis, Completeon 07-24 BACTERIA 0 SEEN Normal None Seen [facility] Comment on above: Order Comment: CLEAN CATCH Performed By: #### L 400.0001 ####[facility] [address] [place], [address] EPI,SQUAMOUS 0 SEEN Normal 0-5 [facility] Comment on above: Order Comment: CLEAN CATCH Performed By: #### L 400.0001 ####[facility] [address] [place], [address] Mucus Ql (Urine sed) 0 SEEN Normal [facility] Comment on above: Order Comment: CLEAN CATCH Performed By: #### L 400.0001 ####[facility] [address] [place], [address] RBC 0 SEEN Normal 0-5 [facility] Comment on above: Order Comment: CLEAN CATCH Performed By: #### L 400.0001 ####[facility] [address] [place], [address] WBC 0 SEEN Normal 0-5 [facility] Comment on above: Order Comment: CLEAN CATCH Performed By: #### L 400.0001 ####[facility] [address] [place], [address] Urine clarityOrdered By: Yusuf Morales on 07-24-2024 Clarity (U) Clear Clear [facility] Urine color determinationOrd ered By: Geronimo Morales on 07-24-2024 Color (U) Yellow Yellow [facility] Urine glucose detectionOrder ed By: Geronimo Morales on 07-24-2024 Glucose Ql (U) Normal mg/dl Normal [facility] Urine leukocyte esterase det ection by dipstickOrdered By: Geronimo Morales on 07-24-2024 Leukocyte esterase Test strip Ql (U) Negative Negative [facility] Urine pHOrdered By: Geronimo Castañeda on 07-24-2024 pH (U) 6.5 [pH] 5.0 - 8.0 [facility] Urine sediment bacteria coun t by microscopy (number/high power field)Ordered By: Geronimo Morales on 07-24-2024 Bacteria LM.HPF (Urine sed) [#/Area] 0 /[HPF] None Seen [facility] Urine specific gravity measu rementOrdered By: Geronimo Morales on 07-24-2024 Specific gravity (U) [Rel density] 1.010 1.002-1.03 0 [facility] Urine urobilinogen measureme ntOrdered By: Geronimo Morales on 07-24-2024 Urobilinogen Ql (U) Normal mg/dl Normal [facility] White blood cell (WBC) count Ordered By: Geronimo Morales on 07-24-2024 WBC (Bld) [#/Vol] 7.4 10*3/uL 4.4-11.0 [facility] White blood cell countOrdere d By: Geronimo Morales on 07-24-2024 White blood cell count 0 SEEN /hpf 0-5 [facility] 05-07-2024 U Ratio Alb/Cre 6 mg/G Normal 0-30 [facility] Comment on above: Result Comment: The units for the MALB test were changed, but the MALB ratio calculation was not initially adjusted to reflex this. The corrected ratio has now been recalculated using the appropriate conversion factor. BP Performed By: #### A DIFF, LIPID, GFR, CMP, ANEU, PSA, TSHR, CBC, VIDH #### [facility] [place] [address] [place], [place] [address] .GFRon 04-18-2024 Estimated Glomerular Filtration Rate 83 ml/min/1.73sqm Normal [facility] Comment on above: Result Comment: Stages of [...] calculate the eGFR results. Performed By: #### A DIFF, LIPID, GFR, CMP, ANEU, PSA, TSHR, CBC, VIDH #### [address] [address] CMPon 04-18-2024 Albumin Level 3.7 G/dL Normal 3.5-5.0 [facility] Comment on above: Performed By: #### A DIFF, LIPID, GFR, CMP, ANEU, PSA, TSHR, CBC, VIDH #### [address] [address] Albumin/Globulin [Mass ratio] 1.2 {ratio} Normal 1.1-2.5 [facility] Comment on above: Performed By: #### A DIFF, LIPID, GFR, CMP, ANEU, PSA, TSHR, CBC, VIDH #### [address] [place], [place] [address] ALP [Catalytic activity/Vol] 78 U/L Normal 40-135 [facility] Comment on above: Performed By: #### A DIFF, LIPID, GFR, CMP, ANEU, PSA, TSHR, CBC, VIDH #### [address] [address] ALT [Catalytic activity/Vol] 32 U/L Normal 16-63 [facility] Comment on above: Performed By: #### A DIFF, LIPID, GFR, CMP, ANEU, PSA, TSHR, CBC, VIDH #### [address] [address] AST [Catalytic activity/Vol] 24 U/L Normal 10-40 [facility] Comment on above: Performed By: #### A DIFF, LIPID, GFR, CMP, ANEU, PSA, TSHR, CBC, VIDH #### [address] [address] Bili Total 1.4 mg/dL High 0.2-1.0 [facility] Comment on above: Result Comment: Use of this assay is not recommended for patients undergoing treatment with eltrombopag due to the potential for falsely elevated results. Performed By: #### A DIFF, LIPID, GFR, CMP, ANEU, PSA, TSHR, CBC, VIDH #### [address] [address] BUN/Creatinine Ratio 12 ratio Normal 7-27 [facility] Comment on above: Performed By: #### A DIFF, LIPID, GFR, CMP, ANEU, PSA, TSHR, CBC, VIDH #### [address] [address] Calcium [Mass/Vol] 9.4 mg/dL Normal 8.4-10.2 [facility] Comment on above: Performed By: #### A DIFF, LIPID, GFR, CMP, ANEU, PSA, TSHR, CBC, VIDH #### [address] [address] Chloride [Moles/Vol] 103 mmol/L Normal 98-107 [facility] Comment on above: Performed By: #### A DIFF, LIPID, GFR, CMP, ANEU, PSA, TSHR, CBC, VIDH #### [address] [address] CO2 [Moles/Vol] 28 mmol/L Normal 22-29 [facility] Comment on above: Performed By: #### A DIFF, LIPID, GFR, CMP, ANEU, PSA, TSHR, CBC, VIDH #### [address] [address] Creatinine [Mass/Vol] 1.04 mg/dL Normal 0.70-1.30 [facility] Comment on above: Result Comment: Test ing performed on Siemens Dimension EXL analyzer using a modified kinetic Andria technique. Performed By: #### A DIFF, LIPID, GFR, CMP, ANEU, PSA, TSHR, CBC, VIDH #### [address] [address] Electrolyte Balance 7.0 mEq/L Normal 4.0-15.0 [facility] Comment on above: Performed By: #### A DIFF, LIPID, GFR, CMP, ANEU, PSA, TSHR, CBC, VIDH #### [address] [address] Globulin 3.1 G/dL Normal 1.5-3.8 [facility] Comment on above: Performed By: #### A DIFF, LIPID, GFR, CMP, ANEU, PSA, TSHR, CBC, VIDH #### [address] [address] Glucose [Mass/Vol] 97 mg/dL Normal 70-105 [facility] Comment on above: Performed By: #### A DIFF, LIPID, GFR, CMP, ANEU, PSA, TSHR, CBC, VIDH #### [address] [address] Potassium [Moles/Vol] 3.7 mmol/L Normal 3.5-5.1 [facility] Comment on above: Performed By: #### A DIFF, LIPID, GFR, CMP, ANEU, PSA, TSHR, CBC, VIDH #### [address] [address] Sodium [Moles/Vol] 138 mmol/L Normal 136-145 [facility] Comment on above: Performed By: #### A DIFF, LIPID, GFR, CMP, ANEU, PSA, TSHR, CBC, VIDH #### [address] [address] Total Protein 6.8 G/dL Normal 6.4-8.2 [facility] Comment on above: Performed By: #### A DIFF, LIPID, GFR, CMP, ANEU, PSA, TSHR, CBC, VIDH #### [address] [place], [place] [address] Urea nitrogen [Mass/Vol] 12 mg/dL Normal 7-18 [facility] Comment on above: Performed By: #### A DIFF, LIPID, GFR, CMP, ANEU, PSA, TSHR, CBC, VIDH #### [address] [place], [place] [address] LABORATORYOrdered By: Renetta Ribeiro on 04-18-2024 Albumin DL <= 20 mg/L (U) [Mass/Vol] 7.3 mg/L Invalid Interpretation Code AO ADM SS Albumin/Creatinine DL <= 20 mg/L (U) [Mass ratio] 0 mcg/mg Normal 0 - 30 mcg/mg AO Chemistry S Creatinine (U) [Mass/Vol] 128.9 mg/dL Invalid Interpretation Code AO ADM SS LABORATORYOrdered By: [employer] [facility] on 04-18-2024 Albumin BCP dye [Mass/Vol] 3.7 [...] Cholesterol [Mass/Vol] 128 mg/dL Normal 0 - 2 00 mg/dL AO ADM SS Comment on above: [...] 04-18-2024 Cholesterol [Mass/Vol] 128 mg/dL Normal 0-200 [facility] Comment on above: Result Comment: Chol esterol Reference Interval: Less than 200 Desirable 200-239 Borderline high risk 240 and above High risk Performed By: #### A DIFF, LIPID, GFR, CMP, ANEU, PSA, TSHR, CBC, VIDH #### [address] [address] Cholesterol in HDL [Mass/Vol] 73 mg/dL High 40-60 [facility] Comment on above: Performed By: #### A DIFF, LIPID, GFR, CMP, ANEU, PSA, TSHR, CBC, VIDH #### [address] [address] Cholesterol in LDL [Mass/Vol] 46 mg/dL Normal 0-130 [facility] Comment on above: Performed By: #### A DIFF, LIPID, GFR, CMP, ANEU, PSA, TSHR, CBC, VIDH #### [address] [address] Triglyceride [Mass/Vol] 43 mg/dL Normal 0-150 [facility] Comment on above: Result Comment: Trig lyceride Reference Interval: Less than 150 Normal 150-199 Borderline high risk 200-499 High risk 500 or higher Very high risk Performed By: #### A DIFF, LIPID, GFR, CMP, ANEU, PSA, TSHR, CBC, VIDH #### [address] [address] MALBRon 04-18-2024 U Creatinine 128.9 mg/dL Normal [facility] Comment on above: Performed By: #### A DIFF, LIPID, GFR, CMP, ANEU, PSA, TSHR, CBC, VIDH #### [address] [place] [address] U Microalb 7.3 mg/L Normal [facility] Comment on above: Performed By: #### A DIFF, LIPID, GFR, CMP, ANEU, PSA, TSHR, CBC, VIDH #### [facility] [address] [place], [place] [address] Knee 4 or More Viewson 03-15 Knee 4 or More Views [facility] [address] [place] [address] Knee 4 or More Views MR#: [id number] Acct: [id number] Name: TEODORA GRIFFITH Rep #: [id number] : 1965 M 58 From: Brandan Lutz MD PCP: Dr. Nazanin Mendoza MD Status: DEP AMB Study: Knee 4 or More Views Date of Exam: 03/15/24 Exam# [id number] Ordering Dr: Simón Teran MD [id number] STUDY: X-RAY - LEFT KNEE REASON FOR [...] 12:19 EST Reading Location ID and State: [facility] / [place] , Service support , CC: Dr. Simón Teran MD; Dr. Nazanin Mendoza MD Electronic Imaging System Operator: Signed Normal [facility] Orthopedic Visit Reporton Orthopedic Visit Report [facility] [address] [place] [address] OFFICE VISIT Date of Service: 03/15/24 MR#: [id number] Acct: [id number] Name: TEODORA GRIFFITH Rep #: [id number] : 1965 Provider: Dr. Simón holguin MD Age/Sex: 58/M Location[place] [facility] Status: Signed with Addenda ADDENDUM by Kathleen [...] Performing Provider: Simón Teran MD Performing Location: [facility] Administered by: Simón Teran MD on 03/15/24 09:13 Dose Route Admin Location Dispensed Lot Number Expiration Date NDC Man ufacturer 80 mg intra-articular BL knee 2 mL [id number] 06/21/25 5901-6551-10 [facility] Date cc: * Signed Intake Vital Signs 11/10/23 14:52 Height 5 ft 6 in Intake Visit Reasons: BL KNEES Chief Complaint: Left knee General Claims Agent Required: No Accompanied by: Self Is patient [...] by me, Dr. Simón Teran MD 03/15/24 0755. Part of today???s visit was documented by [ ], acting as scribe. TEODORA GRIFFITH is a 58 year old M here [...] Yes ROM-Flexion (more content not included)... Normal [facility] .GFRon 12-27-2023 GFR 101 ml/min/1.73sqm [facility] Comment on above: Result Comment: GFR Population [...] 15 mL/min/1.73 square meters Performed By: #### A DIFF, LIPID, GFR, CMP, ANEU, PSA, TSHR, CBC, VIDH #### [address] [place], [place] [address] GFR Non- 83 ml/min/1.73sqm [facility] Comment on above: Result Comment: GFR Population [...] 15 mL/min/1.73 square meters Performed By: #### A DIFF, LIPID, GFR, CMP, ANEU, PSA, TSHR, CBC, VIDH #### [address] [address] CMPon 12-27-2023 Albumin Level 3.9 G/dL Normal 3.5-5.0 [facility] Comment on above: Performed By: #### A DIFF, LIPID, GFR, CMP, ANEU, PSA, TSHR, CBC, VIDH #### [address] [address] Albumin/Globulin [Mass ratio] 1.4 {ratio} Normal 1.1-2.5 [facility] Comment on above: Performed By: #### A DIFF, LIPID, GFR, CMP, ANEU, PSA, TSHR, CBC, VIDH #### [address] [address] ALP [Catalytic activity/Vol] 78 U/L Normal 40-135 [facility] Comment on above: Performed By: #### A DIFF, LIPID, GFR, CMP, ANEU, PSA, TSHR, CBC, VIDH #### [address] [address] ALT [Catalytic activity/Vol] 36 U/L Normal 16-63 [facility] Comment on above: Performed By: #### A DIFF, LIPID, GFR, CMP, ANEU, PSA, TSHR, CBC, VIDH #### [address] [address] AST [Catalytic activity/Vol] 19 U/L Normal 10-40 [facility] Comment on above: Performed By: #### A DIFF, LIPID, GFR, CMP, ANEU, PSA, TSHR, CBC, VIDH #### [address] [address] Bili Total 1.1 mg/dL High 0.2-1.0 [facility] Comment on above: Result Comment: Use of this assay is not recommended for patients undergoing treatment with eltrombopag due to the potential for falsely elevated results. Performed By: #### A DIFF, LIPID, GFR, CMP, ANEU, PSA, TSHR, CBC, VIDH #### [address] [address] BUN/Creatinine Ratio 17 ratio Normal 7-27 [facility] Comment on above: Performed By: #### A DIFF, LIPID, GFR, CMP, ANEU, PSA, TSHR, CBC, VIDH #### [address] [address] Calcium [Mass/Vol] 9.4 mg/dL Normal 8.4-10.2 [facility] Comment on above: Performed By: #### A DIFF, LIPID, GFR, CMP, ANEU, PSA, TSHR, CBC, VIDH #### [address] [address] Chloride [Moles/Vol] 104 mmol/L Normal 98-107 [facility] Comment on above: Performed By: #### A DIFF, LIPID, GFR, CMP, ANEU, PSA, TSHR, CBC, VIDH #### [address] [address] CO2 [Moles/Vol] 31 mmol/L High 22-29 [facility] Comment on above: Performed By: #### A DIFF, LIPID, GFR, CMP, ANEU, PSA, TSHR, CBC, VIDH #### [address] [address] Creatinine [Mass/Vol] 0.93 mg/dL Normal 0.70-1.30 [facility] Comment on above: Result Comment: Test ing performed on Siemens Dimension EXL analyzer using a modified kinetic Andria technique. Performed By: #### A DIFF, LIPID, GFR, CMP, ANEU, PSA, TSHR, CBC, VIDH #### [address] [address] Electrolyte Balance 7.0 mEq/L Normal 4.0-15.0 [facility] Comment on above: Performed By: #### A DIFF, LIPID, GFR, CMP, ANEU, PSA, TSHR, CBC, VIDH #### [address] [address] Globulin 2.8 G/dL Normal [facility] Comment on above: Performed By: #### A DIFF, LIPID, GFR, CMP, ANEU, PSA, TSHR, CBC, VIDH #### [address] [address] Glucose [Mass/Vol] 99 mg/dL Normal 70-105 [facility] Comment on above: Performed By: #### A DIFF, LIPID, GFR, CMP, ANEU, PSA, TSHR, CBC, VIDH #### [address] [address] Potassium [Moles/Vol] 4.4 mmol/L Normal 3.5-5.1 [facility] Comment on above: Performed By: #### A DIFF, LIPID, GFR, CMP, ANEU, PSA, TSHR, CBC, VIDH #### [address] [address] Sodium [Moles/Vol] 142 mmol/L Normal 136-145 [facility] Comment on above: Performed By: #### A DIFF, LIPID, GFR, CMP, ANEU, PSA, TSHR, CBC, VIDH #### [address] [address] Total Protein 6.7 G/dL Normal 6.4-8.2 [facility] Comment on above: Performed By: #### A DIFF, LIPID, GFR, CMP, ANEU, PSA, TSHR, CBC, VIDH #### [address] [address] Urea nitrogen [Mass/Vol] 16 mg/dL Normal 7-18 [facility] Comment on above: Performed By: #### A DIFF, LIPID, GFR, CMP, ANEU, PSA, TSHR, CBC, VIDH #### [address] [place], [place] [address] LABORATORYOrdered By: SYSTEM SYSTEM on 12-27-2023 25-hydroxyvitamin [...] above: Interpretive Data: T esting performed on [employer] Dimension EXL analyzer using a modified kinetic [...] Cholesterol [Mass/Vol] 191 mg/dL Normal 0 - 2 00 mg/dL AO ADM SS Comment on above: [...] 12-27-2023 Cholesterol [Mass/Vol] 191 mg/dL Normal 0-200 [facility] Comment on above: Result Comment: Chol esterol Reference Interval: Less than 200 Desirable 200-239 Borderline high risk 240 and above High risk Performed By: #### A DIFF, LIPID, GFR, CMP, ANEU, PSA, TSHR, CBC, VIDH #### [address] [address] Cholesterol in HDL [Mass/Vol] 64 mg/dL High 40-60 [facility] Comment on above: Performed By: #### A DIFF, LIPID, GFR, CMP, ANEU, PSA, TSHR, CBC, VIDH #### [address] [place], [place] [address] Cholesterol in LDL [Mass/Vol] 111 mg/dL Normal 0-130 [facility] Comment on above: Performed By: #### A DIFF, LIPID, GFR, CMP, ANEU, PSA, TSHR, CBC, VIDH #### [address] [place], [place] [address] Triglyceride [Mass/Vol] 79 mg/dL Normal 0-150 [facility] Comment on above: Result Comment: Trig lyceride Reference Interval: Less than 150 Normal 150-199 Borderline high risk 200-499 High risk 500 or higher Very high risk Performed By: #### A DIFF, LIPID, GFR, CMP, ANEU, PSA, TSHR, CBC, VIDH #### [address] [address] PSAon 12-27-2023 Prostate Specific Antigen 0.78 ng/mL Normal 0.00-4.00 [facility] Comment on above: Performed By: #### C MP, GFR, PSA, VIDH, LIPID #### [address] [place], [place] [address] VIDHon 12-27-2023 Vit. D 25-Hydroxy 62.0 ng/mL Normal [facility] Comment on above: Result Comment: Inte rpretive Values Based on Total 25(OH) Vitamin D: Deficient <20 ng/mL Insufficient 20 - <30 ng/mL Sufficient 30-100 ng/mL Performed By: #### A DIFF, LIPID, GFR, CMP, ANEU, PSA, TSHR, CBC, VIDH #### [address] [address] LABORATORYOrdered By: SYSTEM SYSTEM on 11-01-2023 Basophils [...] (Bld) [#/Vol] 5.04 106/mcL Normal 4.04 - 6.13 10^6/mcL AO Workflow SS Sodium [Moles/Vol] 140 mmol/L Normal 136 - 145 mmol/L AO ADM SS Troponin I.cardiac DL <= 0.01 ng/mL [Mass/Vol] 7 ng/L Normal 0 - 76 ng/L AO ADM SS Comment on above: Interpretive Data: H igh Sensitive Troponin I Reference Ranges: Female: 0-51 ng/L Male: 0-76 ng/L Testing performed on [employer] using a homogeneous sandwich chemiluminescent immunoassay based on [employer] technology. Urea nitrogen [Mass/Vol] 12 mg/dL Normal 7 - 18 mg/dL AO ADM SS Urea nitrogen/Creatinine [Mass ratio] 13 ratio Normal 7 - 27 ratio AO ADM SS WBC (Bld) [#/Vol] 6.9 103/mcL Normal 4.6 - 10.8 10^3/mcL AO Workflow SS LABORATORYOrdered By: SYSTEM SYSTEM on 10-31-2023 Troponin I.cardiac DL <= 0.01 ng/mL [Mass/Vol] 6 ng/L Normal 0 - 76 ng/L AO ADM SS Comment on above: Interpretive Data: H igh Sensitive Troponin I Reference Ranges: Female: 0-51 ng/L Male: 0-76 ng/L Testing performed on [employer] using a homogeneous sandwich chemiluminescent immunoassay based on [employer] technology. Troponin I.cardiac DL <= 0.01 ng/mL [Mass/Vol] 5 ng/L Normal 0 - 76 ng/L AO ADM SS Comment on above: Interpretive Data: H igh Sensitive Troponin I Reference Ranges: Female: 0-51 ng/L Male: 0-76 ng/L Testing performed on [employer] using a homogeneous sandwich chemiluminescent immunoassay based on [employer] technology. Basophils (Bld) [#/Vol] 0.0 103/mcL Normal [...] above: Interpretive Data: T esting performed on [employer] Dimension EXL analyzer using a modified kinetic [...] (Bld) [#/Vol] 4.81 106/mcL Normal 4.04 - 6.13 10^6/mcL AO Workflow SS Sodium [Moles/Vol] 139 mmol/L Normal 136 - 145 mmol/L AO ADM SS Urea nitrogen [Mass/Vol] 14 mg/dL Normal 7 - 18 mg/dL AO ADM SS Urea nitrogen/Creatinine [Mass ratio] 18 ratio Normal 7 - 27 ratio AO ADM SS WBC (Bld) [#/Vol] 5.7 103/mcL Normal 4.6 - 10.8 10^3/mcL AO Workflow SS .Auto Diffon 10-25-2023 Basophil, Absolute 0.0 10 3/mcL Normal 0.0-0.2 [facility] ([place]) Comment on above: Performed By: #### G FR, CBC, ANEU, PBNP, ADIFF, CMP #### [address] [address] Basophils/100 WBC (Bld) 0.4 % Normal 0.0-2.5 [facility] ([place]) Comment on above: Performed By: #### G FR, CBC, ANEU, PBNP, ADIFF, CMP #### [address] [address] Eosinophil, Absolute 0.0 10 3/mcL Normal 0.0-0.4 [facility] ([place]) Comment on above: Performed By: #### G FR, CBC, ANEU, PBNP, ADIFF, CMP #### [address] [address] Eosinophils/100 WBC (Bld) 0.6 % Normal 0.0-7.0 [facility] ([place]) Comment on above: Performed By: #### G FR, CBC, ANEU, PBNP, ADIFF, CMP #### [address] [address] Lymphocyte, Absolute 1.1 10 3/mcL Normal 0.8-3.9 [facility] ([place]) Comment on above: Performed By: #### G FR, CBC, ANEU, PBNP, ADIFF, CMP #### [address] [address] Lymphocytes/100 WBC (Bld) 19.8 % Normal 10.0-50.0 [facility] ([place]) Comment on above: Performed By: #### G FR, CBC, ANEU, PBNP, ADIFF, CMP #### [address] [address] Monocyte, Absolute 0.5 10 3/mcL Normal 0.2-1.0 [facility] ([place]) Comment on above: Performed By: #### G FR, CBC, ANEU, PBNP, ADIFF, CMP #### [address] [address] Monocytes/100 WBC (Bld) 8.0 % Normal 1.7-13.0 [facility] ([place]) Comment on above: Performed By: #### G FR, CBC, ANEU, PBNP, ADIFF, CMP #### [address] [address] Neutrophils/100 WBC (Bld) 71.2 % Normal 37.0-80.0 [facility] ([place]) Comment on above: Performed By: #### G FR, CBC, ANEU, PBNP, ADIFF, CMP #### [address] [address] .GFRon 10-25-2023 GFR 126 ml/min/1.73sqm Normal [facility] ([place]) Comment on above: Result Comment: GFR Population [...] FR, CBC, ANEU, PBNP, ADIFF, CMP #### [address] [id number] GFR Non- 104 ml/min/1.73sqm Normal [facility] ([place]) Comment on above: Result Comment: GFR Population [...] FR, CBC, ANEU, PBNP, ADIFF, CMP #### [address] [address] .NEUABSon 10-25-2023 Neutrophil, Absolute 4.0 10 3/mcL Normal 2.9-6.2 [facility] ([place]) Comment on above: Performed By: #### G FR, CBC, ANEU, PBNP, ADIFF, CMP #### [place] [address] CBCon 10-25-2023 Erythrocyte distribution width (RBC) [Ratio] 13.3 % Normal 11.5-14.5 [facility] ([place]) Comment on above: Performed By: #### G FR, CBC, ANEU, PBNP, ADIFF, CMP #### [address] [address] Hematocrit (Bld) [Volume fraction] 45.1 % Normal 42.0-52.0 [facility] ([place]) Comment on above: Performed By: #### G FR, CBC, ANEU, PBNP, ADIFF, CMP #### [address] [address] Hgb 15.7 G/dL Normal 14.0-18.0 [facility] ([place]) Comment on above: Performed By: #### G FR, CBC, ANEU, PBNP, ADIFF, CMP #### [address] [address] MCH (RBC) [Entitic mass] 31.8 pg High 27.0-31.2 [facility] ([place] Comment on above: Performed By: #### G FR, CBC, ANEU, PBNP, ADIFF, CMP #### [address] [address] MCHC 34.7 G/dL Normal 31.8-35.4 [facility] ([place] Comment on above: Performed By: #### G FR, CBC, ANEU, PBNP, ADIFF, CMP #### [address] [address] MCV (RBC) [Entitic vol] 91.6 fL Normal 80.0-94.0 [facility] ([place]) Comment on above: Performed By: #### G FR, CBC, ANEU, PBNP, ADIFF, CMP #### [address] [address] Platelet 342 10 3/mcL Normal 130-400 [facility] ([place]) Comment on above: Performed By: #### G FR, CBC, ANEU, PBNP, ADIFF, CMP #### [address] [address] Platelet mean volume (Bld) [Entitic vol] 6.9 fL Low 7.4-10.4 [facility] ([place]) Comment on above: Performed By: #### G FR, CBC, ANEU, PBNP, ADIFF, CMP #### [address] [address] RBC 4.93 10 6/mcL Normal 4.04-6.13 [facility] ([place] Comment on above: Performed By: #### G FR, CBC, ANEU, PBNP, ADIFF, CMP #### [address] [address] WBC 5.7 10 3/mcL Normal 4.6-10.8 [facility] ([place]) Comment on above: Performed By: #### G FR, CBC, ANEU, PBNP, ADIFF, CMP #### [address] [address] CMPon 10-25-2023 Albumin Level 4.0 G/dL Normal 3.5-5.0 [facility] ([place]) Comment on above: Performed By: #### G FR, CBC, ANEU, PBNP, ADIFF, CMP #### [address] [address] Albumin/Globulin [Mass ratio] 1.2 {ratio} Normal 1.1-2.5 [facility] ([place]) Comment on above: Performed By: #### G FR, CBC, ANEU, PBNP, ADIFF, CMP #### [address] [address] ALP [Catalytic activity/Vol] 83 U/L Normal 40-135 [facility] ([place]) Comment on above: Performed By: #### G FR, CBC, ANEU, PBNP, ADIFF, CMP #### [address] [address] ALT [Catalytic activity/Vol] 34 U/L Normal 16-63 [facility] ([place]) Comment on above: Performed By: #### G FR, CBC, ANEU, PBNP, ADIFF, CMP #### [address] [address] AST [Catalytic activity/Vol] 21 U/L Normal 10-40 [facility] ([place]) Comment on above: Performed By: #### G FR, CBC, ANEU, PBNP, ADIFF, CMP #### [address] [address] Bili Total 0.8 mg/dL Normal 0.2-1.0 [facility] ([place]) Comment on above: Result Comment: Use of this assay is not recommended for patients undergoing treatment with eltrombopag due to the potential for falsely elevated results. Performed By: #### G FR, CBC, ANEU, PBNP, ADIFF, CMP #### [address] [address] BUN/Creatinine Ratio 19 ratio Normal 7-27 [facility] ([place] Comment on above: Performed By: #### G FR, CBC, ANEU, PBNP, ADIFF, CMP #### [address] [address] Calcium [Mass/Vol] 9.5 mg/dL Normal 8.4-10.2 [facility] ([place] Comment on above: Performed By: #### G FR, CBC, ANEU, PBNP, ADIFF, CMP #### [address] [address] Chloride [Moles/Vol] 102 mmol/L Normal 98-107 [facility] ([place] Comment on above: Performed By: #### G FR, CBC, ANEU, PBNP, ADIFF, CMP #### [address] [address] CO2 [Moles/Vol] 31 mmol/L High 22-29 [facility] ([place]) Comment on above: Performed By: #### G FR, CBC, ANEU, PBNP, ADIFF, CMP #### [address] [address] Creatinine [Mass/Vol] 0.77 mg/dL Normal 0.70-1.30 [facility] ([place]) Comment on above: Result Comment: Test ing performed on Siemens Dimension EXL analyzer using a modified kinetic Andria technique. Performed By: #### G FR, CBC, ANEU, PBNP, ADIFF, CMP #### [address] [address] Electrolyte Balance 8.0 mEq/L Normal 4.0-15.0 [facility] ([place]) Comment on above: Performed By: #### G FR, CBC, ANEU, PBNP, ADIFF, CMP #### [address] [address] Globulin 3.4 G/dL Normal [facility] ([place] Comment on above: Performed By: #### G FR, CBC, ANEU, PBNP, ADIFF, CMP #### [address] [address] Glucose [Mass/Vol] 102 mg/dL Normal 70-105 [facility] ([place] Comment on above: Performed By: #### G FR, CBC, ANEU, PBNP, ADIFF, CMP #### [address] [address] Potassium [Moles/Vol] 4.2 mmol/L Normal 3.5-5.1 [facility] ([place] Comment on above: Performed By: #### G FR, CBC, ANEU, PBNP, ADIFF, CMP #### [place] [address] [place], [place] [address] Sodium [Moles/Vol] 141 mmol/L Normal 136-145 [facility] ([place] Comment on above: Performed By: #### G FR, CBC, ANEU, PBNP, ADIFF, CMP #### [address] [address] Total Protein 7.4 G/dL Normal 6.4-8.2 [facility] ([place]) Comment on above: Performed By: #### G FR, CBC, ANEU, PBNP, ADIFF, CMP #### [address] [address] Urea nitrogen [Mass/Vol] 15 mg/dL Normal 7-18 [facility] ([place] Comment on above: Performed By: #### G FR, CBC, ANEU, PBNP, ADIFF, CMP #### [address] [address] LABORATORYOrdered By: SYSTEM SYSTEM on 10-25-2023 Albumin [...] (Bld) [#/Vol] 4.93 106/mcL Normal 4.04 - 6.13 10^6/mcL AO Workflow SS Sodium [Moles/Vol] 141 [...] B (Bld) [Mass/Vol] 11 pg/mL Normal 0-125 [facility] ([place]) Comment on above: Result Comment: NT-p roBNP results of less than 300 pg/mL effectively rules out acute congestive heart failure with 99% negative predictive value. Performed By: #### G FR, CBC, ANEU, PBNP, ADIFF, CMP #### [address] [address] XR CHEST 2 VIEWSon 4 XR CHEST 2 VIEWS ORIGINAL EXAMINATION: TWO XRAY VIEWS OF THE CHEST 10/25/2023 9:34 am COMPARISON: Chest x-ray June 23, 2022 HISTORY: ORDERING SYSTEM PROVIDED HISTORY: Reason for Exam: Shortness of breath with possible UT yesterday morning per patient. FINDINGS: The heart [...] Date: 10/25/2023 11:57:37 AM Ordering Provider: ALEKSANDR STEPHENSON [facility] ([place] ANGIOGRAPHY HEAD W/ CONTR Karon 05-02-2023 [...] 05/02/2023 3:54:11 PM Ordering Provider: DAVID GUILLEN [facility] ([place]) LABORATORYOrdered By: Aggie Jauregui on 07-21-2022 Gliadin [...] Non-Reactive (06/23/22 7:45 AM) Invalid Interpretation Code Non-Reacti ve AO Rapid Testing SS HIV 1 p24 Ab Ql (S) Non-Reactive Invalid Interpretation Code AO Rapid Testing SS HIV 1+2 Ab IA Ql Non-Reactive Invalid Interpretation Code AO Rapid Testing SS HIV 1+2 Ab IA.rapid Ql (Unsp spec) Non-Reactive (06/23/22 7:45 AM) Invalid Interpretation Code Non-Reacti ve AO Rapid Testing SS Absolute lymphocyte counton 12-28-2021 Lymphocytes Auto (Unsp spec) [#/Vol] 0.75 10*3/uL 0.83-4.51 [facility] Work Phone: [phone] Basophil percentageon 2021 Basophil percentage 0 SEEN /hpf 0-5 [facility] Work Phone: [phone] Basophils/100 WBC (Bld) 0.2 % 0-1 [facility] Work Phone: Bilirubin [Mass/Vol] 0.80 mg/dL 0.20-1.00 [facility] Work Phone: [phone] Comment on above: For patients on eltr ombopag therapy, use of Dimension [place] TBIL is not recommended. Chloride [Moles/Vol] 104 mmol/L 98-107 [facility] Work Phone: Eosinophils/100 WBC (Bld) 0.2 % 0-5 [facility] Work Phone: Glucose [Mass/Vol] 109 mg/dL 74-106 [facility] Work Phone: Comment on above: Fasting Glucose resu lt from 100 to 125 mg/dL suggests IMPAIRED HOMEOSTASIS per A.D.A. criteria. Neutrophils (Bld) [#/Vol] 10.7 10*3/uL 2.0-7.7 [facility] Work Phone: Neutrophils/100 WBC (Bld) 88.2 % 47-70 [facility] Work Phone: Potassium [Moles/Vol] 3.8 mmol/L 3.5-5.1 [facility] Work Phone: Protein [Mass/Vol] 7.2 g/dL 6.4-8.2 [facility] Work Phone: Sodium [Moles/Vol] 139 mmol/L 136-145 [facility] Work Phone: WBC (Bld) [#/Vol] 12.1 10*3/uL 4.4-11.0 [facility] Work Phone: [phone] Bilirubin Test strip Ql (U)o n 12-28-2021 Bilirubin Ql (U) Negative Negative [facility] Work Phone: Blood erythrocytes count (nu mber/volume)on 12-28-2021 RBC (Bld) [#/Vol] 4.85 10*6/uL 4.6-6.2 [facility] Work Phone: Blood hemoglobin measurement (mass/volume)on 12-28-2021 Hemoglobin (Bld) [Mass/Vol] 15.3 g/dL 13.0-16.5 [facility] Work Phone: Blood lymphocytes/100 leukoc yteson 12-28-2021 Lymphocytes/100 WBC (Bld) 6.2 % 19-41 [facility] Work Phone: Blood monocytes/100 leukocyt eson 12-28-2021 Monocytes/100 WBC (Bld) 4.7 % 0-10 [facility] Work Phone: Blood platelet mean volumeon 12-28-2021 Platelet mean volume (Bld) [Entitic vol] 8.4 fL 6.2-12.0 [facility] Work Phone: Determination of erythrocyte mean corpuscular volume (MCV)on 12-28-2021 MCV (RBC) [Entitic vol] 86.4 fL 80-94 [facility] Work Phone: Hematocrit Auto (Bld) [Volum e fraction]on 12-28-2021 Hematocrit (Bld) [Volume fraction] 41.9 % 40-54 [facility] Work Phone: Ketones Test strip Ql (U)on 12-28-2021 Ketones Ql (U) 5 mg/dl Negative [facility] Work Phone: Laboratory - Chemistry and C hemistry - challengeon 12-28-2021 ALP [Catalytic activity/Vol] 74 U/L 45-117 [facility] Work Phone: ALT [Catalytic activity/Vol] 40 U/L 16-61 [facility] Work Phone: CO2 [Moles/Vol] 25.0 mmol/L 21.0-32.0 [facility] Work Phone: Globulin (S) [Mass/Vol] 3.2 g/dL 2.2-4.2 [facility] Work Phone: Urea nitrogen/Creatinine [Mass ratio] 17.3 mg/mg 10-20 [facility] Work Phone: Laboratory - Hematology and Cell countson 12-28-2021 Erythrocyte distribution width (RBC) [Entitic vol] 37.2 fL 35.1-43.9 [facility] Work Phone: Erythrocyte distribution width (RBC) [Ratio] 11.9 % 11.6-14.6 [facility] Work Phone: Immature granulocytes/100 WBC (Bld) 0.500 % 0.0-0.9 [facility] Work Phone: Comment on above: IG% - Immature Granu locytes (promyelocytes, myelocytes and metamyelocytes) > 1% indicates that a LEFT SHIFT is Present. MCH (RBC) [Entitic mass] 31.5 pg 27.0-32.0 [facility] Work Phone: Nucleated RBC/100 WBC (Bld) [Ratio] 0 % 0-5 [facility] Work Phone: MCHC Auto (RBC) [Mass/Vol]on 12-28-2021 MCHC (RBC) [Mass/Vol] 36.5 g/dL 32-36 [facility] Work Phone: Mucus LM Ql (Urine sed)on Mucus Ql (Urine sed) 0 SEEN /hpf [facility] Work Phone: Nitrite Test strip Ql (U)on 12-28-2021 Nitrite Ql (U) Negative Negative [facility] Work Phone: No Panel Informationon 12-28 Estimated Creatinine Clearance Calc 91.89 ml/min [facility] Work Phone: Estimated GFR (MDRD) Amer 127 mL/min >60 [facility] Work Phone: Comment on above: GFR Calc Estimated GFR (MDRD) Non-Af Amer 105 mL/min >60 [facility] Work Phone: Comment on above: Non- GFR Calc Platelets bldon 12-28-2021 Platelets (Bld) [#/Vol] 316 10*3/uL 150-450 [facility] Work Phone: Protein Test strip Ql (U)on 12-28-2021 Protein Ql (U) Negative Negative [facility] Work Phone: Serum or plasma albumin jonna urement (mass/volume)on 12-28-2021 Albumin [Mass/Vol] 4.0 g/dL 3.2-5.0 [facility] Work Phone: Serum or plasma albumin/glob ulin mass ratioon 12-28-2021 Albumin/Globulin [Mass ratio] 1.2 {ratio} 0.9-2.4 [facility] Work Phone: Serum or plasma calcium jonna urement (mass/volume)on 12-28-2021 Calcium [Mass/Vol] 9.7 mg/dL 8.5-10.1 [facility] Work Phone: Serum or plasma creatinine m easurement (mass/volume)on 12-28-2021 Creatinine [Mass/Vol] 0.81 mg/dL 0.70-1.30 [facility] Work Phone: Comment on above: The validity of the calculated GFR & GFRAA in patients over 70 years has not been determined. Clinical correlation is essential. Serum or plasma urea nitroge n measurement (mass/volume)on 12-28-2021 Urea nitrogen [Mass/Vol] 14 mg/dL 7-18 [facility] Work Phone: Squamous epithelial cells de tection in urine sediment by light microscopyon 12-28-2021 Epithelial cells.squamous LM Ql (Urine sed) 0 SEEN /hpf 0-5 [facility] Work Phone: Thin prep Papanicolaou smear with manual screeningon 12-28-2021 Thin prep Papanicolaou smear with manual screening 23 U/L 15-37 [facility] Work Phone: Thin prep Papanicolaou smear with manual screening 10 5-15 [facility] Work Phone: Urine blood detectionon -0 RBC Ql (U) Negative Negative [facility] Work Phone: RBC Ql (U) 0 SEEN /hpf 0-5 [facility] Work Phone: Urine clarityon 12-28-2021 Clarity (U) Clear Clear [facility] Work Phone: Urine color determinationon 12-28-2021 Color (U) Yellow Yellow [facility] Work Phone: Urine glucose detectionon Glucose Ql (U) Normal mg/dl Normal [facility] Work Phone: Urine leukocyte esterase det ection by dipstickon 12-28-2021 Leukocyte esterase Test strip Ql (U) Negative Negative [facility] Work Phone: Urine pHon 12-28-2021 pH (U) 8.0 [pH] 5.0 - 8.0 [facility] Work Phone: Urine sediment bacteria coun t by microscopy (number/high power field)on 12-28-2021 Bacteria LM.HPF (Urine sed) [#/Area] 0 /[HPF] None Seen [facility] Work Phone: Urine specific gravity measu rementon 12-28-2021 Specific gravity (U) [Rel density] 1.010 1.002-1.03 0 [facility] Work Phone: Urobilinogen Auto test strip Ql (U)on 12-28-2021 Urobilinogen Ql (U) Normal mg/dl Normal [facility] Work Phone: LABORATORYOrdered By: Barbara Rendon on [...] Non-Reactive (08/26/21 9:03 AM) Invalid Interpretation Code Non-Reacti ve AH ADM SS Hep C Ab Int [...] Time Vital Sign Value Performing Clinician Facility 11-15-2024 07:53-0400 Body height 165.[address] Geronimo Morales DO Work Phone: 4(950)340-229477 [place] [address] 11-15-2024 07:53-0400 Body mass index (BMI) [Ratio] 27.6 kg/m2 Dr. Geronimo Morales DO Work Phone: 9(299)282-940577 [place] [address] 11-15-2024 07:53-0400 Body temperature 98.2 [degF] Dr. Geronimo Morales DO Work Phone: 2(202)970-976377 [place] [address] 11-15-2024 07:53-0400 Body weight 75.[address] Geronimo Morales DO Work Phone: 4(582)440-513577 [place] [address] 11-15-2024 07:53-0400 Diastolic blood pressure 83 mm[Hg] Dr. Geronimo Morales DO Work Phone: 4(920)584-228977 [place] [address] 11-15-2024 07:53-0400 Heart rate 72 /min Dr. Geronimo Morales DO Work Phone: 2(148)918-928477 [place] [address] 11-15-2024 07:53-0400 Respiratory rate 15 /min Dr. Geronimo Morales DO Work Phone: 8(670)857-991477 [place] [address] 11-15-2024 07:53-0400 SaO2% (BldA) [Mass fraction] 100 % Dr. Geronimo Morales DO Work Phone: 3(553)[phone] [place] [address] 11-15-2024 07:53-0400 Systolic blood pressure 127 mm[Hg] Dr. Geronimo Morales DO Work Phone: 2(891)[phone] [place] [address] 08-16-2024 08:29-0400 Body height 165.[address] Geronimo Morales DO Work Phone: 0(908)986-686077 [place] [address] 08-16-2024 08:29-0400 Body mass index (BMI) [Ratio] 28.3 kg/m2 Dr. Geronimo Morales DO Work Phone: 2(031)155-927177 [place] [address] 08-16-2024 08:29-0400 Body temperature 98.4 [degF] Dr. Geronimo Morales DO Work Phone: 3(405)595-126777 [place] [address] 08-16-2024 08:29-0400 Body weight 77.[address] Geronimo Morales DO Work Phone: 8(858)141-865277 [place] [address] 08-16-2024 08:29-0400 Diastolic blood pressure 91 mm[Hg] Dr. Geronimo Morales DO Work Phone: 4(288)924-687777 [place] [address] 08-16-2024 08:29-0400 Heart rate 70 /min Dr. Geronimo Morales DO Work Phone: 9(137)175-115877 [place] [address] 08-16-2024 08:29-0400 Respiratory rate 16 /min Dr. Geronimo Morales DO Work Phone: 5(701)[phone] [place] [address] 08-16-2024 08:29-0400 SaO2% (BldA) [Mass fraction] 99 % Dr. Geronimo Morales DO Work Phone: 0(037)861-753377 [place] [address] 08-16-2024 08:29-0400 Systolic blood pressure 134 mm[Hg] Dr. Geronimo Morales DO Work Phone: 2(853)191-137277 [place] [address] 07-26-2024 08:15-0400 Body temperature 97.9 [degF] Dr. Geronimo Morales DO Work Phone: 2(976)[phone] [place] [address] 07-26-2024 08:15-0400 Diastolic blood pressure 91 mm[Hg] Dr. Geronimo Morales DO Work Phone: 4(579)236-076191 [place] [address] 07-26-2024 08:15-0400 Heart rate 66 /min Dr. Geronimo Morales DO Work Phone: 2(163)956-925977 [place] [address] 07-26-2024 08:15-0400 Respiratory rate 14 /min Dr. Geronimo Morales DO Work Phone: 4(788)072-489877 [place] [address] 07-26-2024 08:15-0400 SaO2% (BldA) [Mass fraction] 98 % Dr. Geronimo Morales DO Work Phone: 2(191)281-454077 [place] [address] 07-26-2024 08:15-0400 Systolic blood pressure 122 mm[Hg] Dr. Geronimo Morales DO Work Phone: 5(832)304-490677 [place] [address] 07-26-2024 06:00-0400 Body mass index (BMI) [Ratio] 26.1 kg/m2 Dr. Geronimo Morales DO Work Phone: 9(553)908-488191 [place] [address] 07-26-2024 06:00-0400 Body weight 73.[address] Geronimo Morales DO Work Phone: 0(846)[phone] [place] [address] 07-25-2024 11:32-0400 Body height 167.[address] Geronimo Morales DO Work Phone: 5(441)340-361577 [place] [address] 07-25-2024 01:00-0400 Diastolic blood pressure 94 mm[Hg] Dr. Geronimo Morales DO Work Phone: 3(643)556-161991 [place] [address] 07-25-2024 01:00-0400 Heart rate 76 /min Dr. Geronimo Morales DO Work Phone: 7(975)[phone] [place] [address] 07-25-2024 01:00-0400 Respiratory rate 19 /min Dr. Geronimo Morales DO Work Phone: [facility] 07-25-2024 01:00-0400 SaO2% (BldA) [Mass fraction] 93 % Dr. Geronimo Morales DO Work Phone: [facility] 07-25-2024 01:00-0400 Systolic blood pressure 131 mm[Hg] Dr. Geronimo Morales DO Work Phone: [facility] 07-24-2024 23:39-0400 Body temperature 97.7 [degF] Dr. Geronimo Morales DO Work Phone: [facility] 07-24-2024 21:18-0400 Body height 167.[address] Geronimo Morales DO Work Phone: [facility] 07-24-2024 21:18-0400 Body mass index (BMI) [Ratio] 26.9 kg/m2 Dr. Geronimo Morales DO Work Phone: [facility] 07-24-2024 21:18-0400 Body weight 75.[address] Geronimo Morales DO Work Phone: [facility] 11-01-2023 17:54-0400 Body temperature 98.6 [degF] ALESHIA BEDOLLA APRN-THOR [facility] 11-01-2023 17:54-0400 Diastolic Blood Pressure Non-Invasive 96 mm[Hg] ALESHIA BEDOLLA APRN-BRAILLE OPERATOR [facility] 11-01-2023 17:54-0400 Heart rate 87 /min ALESHIA BEDOLLA APRN-BRAILLE OPERATOR [facility] 11-01-2023 17:54-0400 Reason For Taking VItal Signs ALESHIA BEDOLLA APRN-BRAILLE OPERATOR [facility] 11-01-2023 17:54-0400 Respiratory rate 16 /min ALESHIA GIBSONER CREWMAN MAIN [employer]ATT[employer] T[employer]-BRAILLE OPERATOR [facility] 11-01-2023 17:54-0400 Systolic Blood Pressure Non-Invasive 130 mm[Hg] ALESHIA GIBSONER CREWMAN MAIN BATT[employer] TANK-BRAILLE OPERATOR [facility] 11-01-2023 14:21-0400 Body temperature 98.24 [degF] ALESHIA KAPPER CREWMAN MAIN BATTLE TANK-BRAILLE OPERATOR [facility] 11-01-2023 14:21-0400 Diastolic Blood Pressure Non-Invasive 81 mm[Hg] ALESHIA KAPPER CREWMAN MAIN [employer]ATT[employer] T[employer]-BRAILLE OPERATOR [facility] 11-01-2023 14:21-0400 Heart rate 82 /min ALESHIA GIBSONER CREWMAN MAIN BATT[employer] TANK-BRAILLE OPERATOR [facility] 11-01-2023 14:21-0400 Reason For Taking VItal Signs ALESHIA BEDOLLA CREWMAN MAIN BATTLE T[employer]-BRAILLE OPERATOR [facility] 11-01-2023 14:21-0400 Respiratory rate 16 /min ALESHIA GIBSONER CREWMAN MAIN BATT[employer] T[employer]-BRAILLE OPERATOR [facility] 11-01-2023 14:21-0400 Systolic Blood Pressure Non-Invasive 129 mm[Hg] ALESHIA GIBSONER CREWMAN MAIN BATT[employer] T[employer]-BRAILLE OPERATOR [facility] 11-01-2023 11:28-0400 Body temperature 98.24 [degF] ALESHIA KAPPER CREWMAN MAIN [employer]ATT[employer] T[employer]-BRAILLE OPERATOR [facility] 11-01-2023 11:28-0400 Diastolic Blood Pressure Non-Invasive 78 mm[Hg] ALESHIA PAIGEER CREWMAN MAIN [employer]ATT[employer] T[employer]-BRAILLE OPERATOR [facility] 11-01-2023 11:28-0400 Heart rate 68 /min ALESHIA BEDOLLA CREWMAN MAIN [employer]ATT[employer] T[employer]-BRAILLE OPERATOR [facility] 11-01-2023 11:28-0400 Reason For Taking VItal Signs ALESHIA BEDOLLA CREWMAN MAIN BATT[employer] T[employer]-BRAILLE OPERATOR [facility] 11-01-2023 11:28-0400 Respiratory rate 16 /min ALESHIA BEDOLLA CREWMAN MAIN BATT[employer] TANK-BRAILLE OPERATOR [facility] 11-01-2023 11:28-0400 Systolic Blood Pressure Non-Invasive 114 mm[Hg] ALESHIA BEDOLLA CREWMAN MAIN BATTLE TANK-BRAILLE OPERATOR [facility] 10-31-2023 17:52-0400 Body height 167.6 cm ALESHIA GIBSONER CREWMAN MAIN BATT[employer] T[employer]-BRAILLE OPERATOR [facility] 10-31-2023 17:52-0400 Body weight 80.1 kg ALESHIA GIBSONER CREWMAN MAIN [employer]ATT[employer] T[employer]-BRAILLE OPERATOR [facility] 10-31-2023 17:52-0400 Body weight 28.52 kg/m2 ALESHIA GIBSONER CREWMAN MA[employer]ATT[employer] T[employer]-BRAILLE OPERATOR [facility] 10-31-2023 17:46-0400 Blood Pressure Location ALESHIA GIBSONER CREWMAN MAIN BATT[employer] T[employer]-BRAILLE OPERATOR [facility] 10-31-2023 17:46-0400 Blood Pressure Method ALESHIA GIBSONER CREWMAN MAIN BATT[employer] T[employer]-BRAILLE OPERATOR [facility] 10-31-2023 17:46-0400 Heart rate 78 /min ALESHIAMargareth GIBSONER CREWMAN MAIN BATT[employer] TANK-BRAILLE OPERATOR [facility] 10-31-2023 17:02-0400 Blood Pressure Location ALESHIA KAPPER CREWMAN MAIN BATT[employer] T[employer]-BRAILLE OPERATOR [facility] 10-31-2023 17:02-0400 Blood Pressure Method ALESHIA KAPPER CREWMAN MAIN BATTLE TANK-BRAILLE OPERATOR [facility] 10-31-2023 17:02-0400 Heart rate 74 /min ALESHIA GIBSONER CREWMAN MAIN BATTLE TANK-BRAILLE OPERATOR [facility] 10-31-2023 16:03-0400 Blood Pressure Location ALESHIA BEDOLLA CREWMAN MAIN BATTLE T[employer]-BRAILLE OPERATOR [facility] 10-31-2023 16:03-0400 Blood Pressure Method ALESHIA GIBSONER CREWMAN MAIN BATTLE T[employer]-BRAILLE OPERATOR [facility] 10-31-2023 16:03-0400 Heart rate 77 /min ALESHIA GIBSONER CREWMAN MAIN BATTLE T[employer]-BRAILLE OPERATOR [facility] 10-31-2023 12:57-0400 Body weight 80.1 kg ALESHIA GIBSONER CREWMAN MAIN BATTLE TANK-BRAILLE OPERATOR [facility] 08-12-2022 11:52-0400 Diastolic Blood Pressure Non-Invasive [address] BARNEY ALVAREZ MD [facility] 08-12-2022 11:52-0400 Heart rate 70 /min DR BARNEY ALVAREZ MD [facility] 08-12-2022 11:52-0400 Respiratory rate 16 /min DR BARNEY ALVAREZ MD [facility] 08-12-2022 11:52-0400 Systolic Blood Pressure Non-Invasive [address] BARNEY ALVAREZ MD [facility] 08-12-2022 11:45-0400 Diastolic Blood Pressure Non-Invasive [address] BARNEY ALVAREZ MD [facility] 08-12-2022 11:45-0400 Heart rate 65 /min DR BARNEY ALVAREZ MD [facility] 08-12-2022 11:45-0400 Respiratory rate 16 /min DR BARNEY ALVAREZ MD [facility] 08-12-2022 11:45-0400 Systolic Blood Pressure Non-Invasive [address] BARNEY ALVAREZ MD [facility] 08-12-2022 11:40-0400 Diastolic Blood Pressure Non-Invasive [address] BARNEY ALVAREZ MD [facility] 08-12-2022 11:40-0400 Heart rate 64 /min DR BARNEY ALVAREZ MD [facility] 08-12-2022 11:40-0400 Respiratory rate 20 /min DR BARNEY ALVAREZ MD [facility] 08-12-2022 11:40-0400 Systolic Blood Pressure Non-Invasive [address] BARNEY ALVAREZ MD [facility] 08-12-2022 11:26-0400 Body temperature 98.06 [degF] DR BARNEY ALVAREZ MD [facility] 08-12-2022 11:20-0400 Respiratory Rate - Anes 11 br/min DR BARNEY ALVAREZ MD [facility] 08-12-2022 11:15-0400 Respiratory Rate - Anes 11 br/min DR BARNEY ALVAREZ MD [facility] 08-12-2022 11:10-0400 Respiratory Rate - Anes 9 br/min DR BARNEY ALVAREZ MD [facility] 08-12-2022 10:14-0400 Body height 167.[address] BARNEY ALVAREZ MD [facility] 08-12-2022 10:14-0400 Body weight 76.[address] BARNEY ALVAREZ MD [facility] 08-12-2022 10:14-0400 Body weight 27.03 kg/m2 DR BARNEY ALVAREZ MD [facility] 08-12-2022 10:00-0400 Heart rate 73 /min DR BARNEY ALVAREZ MD [facility] 02-18-2022 16:00-0500 Body temperature 98.2 [degF] Dr. Nazanin Mendoza Work Phone: [facility] Work Phone: 02-18-2022 16:00-0500 Diastolic blood pressure 84 mm[Hg] Dr. Nazanin Mendoza Work Phone: [facility] Work Phone: 02-18-2022 16:00-0500 Heart rate 71 /min Dr. Nazanin Mendoza Work Phone: [facility] Work Phone: 02-18-2022 16:00-0500 Respiratory rate 16 /min Dr. Nazanin Mendoza Work Phone: [facility] Work Phone: 02-18-2022 16:00-0500 SaO2% (BldA) [Mass fraction] 99 % Dr. Nazanin Mendoza Work Phone: [facility] Work Phone: 02-18-2022 16:00-0500 Systolic blood pressure 108 mm[Hg] Dr. Nazanin Mendoza Work Phone: [facility] Work Phone: 02-18-2022 14:45-0500 Inhaled oxygen flow rate 2 L/min Dr. Nazanin Mendoza Work Phone: [facility] Work Phone: 02-18-2022 11:53-0500 Body height 167.[address] Nazanin Mendoza Work Phone: [facility] Work Phone: 02-18-2022 11:53-0500 Body mass index (BMI) [Ratio] 27.3 kg/m2 Dr. Nazanin Mendoza Work Phone: [facility] Work Phone: 02-18-2022 11:53-0500 Body weight [address] Nazanin Mendoza Work Phone: [facility] Work Phone: 02-03-2022 08:51-0500 Body mass index (BMI) [Ratio] 27.4 kg/m2 Dr. Nazanin Mendoza Work Phone: [facility] Work Phone: 02-03-2022 08:51-0500 Body temperature 98 [degF] Dr. Nazanin Mendoza Work Phone: [facility] Work Phone: 02-03-2022 08:51-0500 Body weight 77.[address] Nazanin Mendoza Work Phone: [facility] Work Phone: 02-03-2022 08:51-0500 Diastolic blood pressure 93 mm[Hg] Dr. Nazanin Mendoza Work Phone: [facility] Work Phone: 02-03-2022 08:51-0500 Heart rate 78 /min Dr. Nazanin Mendoza Work Phone: [facility] Work Phone: 02-03-2022 08:51-0500 Respiratory rate 18 /min Dr. Nazanin Mendoza Work Phone: [facility] Work Phone: 02-03-2022 08:51-0500 SaO2% (BldA) [Mass fraction] 98 % Dr. Nazanin Mendoza Work Phone: [facility] Work Phone: 02-03-2022 08:51-0500 Systolic blood pressure 135 mm[Hg] Dr. Nazanin Mendoza Work Phone: [facility] Work Phone: 12-28-2021 12:07-0500 Diastolic blood pressure 98 mm[Hg] [facility] Work Phone: 12-28-2021 12:07-0500 Heart rate 90 /min [facility] Work Phone: 12-28-2021 12:07-0500 Respiratory rate 16 /min [facility] Work Phone: 12-28-2021 12:07-0500 SaO2% (BldA) [Mass fraction] 99 % [facility] Work Phone: 12-28-2021 12:07-0500 Systolic blood pressure 142 mm[Hg] [facility] Work Phone: 12-28-2021 10:55-0500 Body height 167.64 cm [facility] Work Phone: 12-28-2021 10:55-0500 Body mass index (BMI) [Ratio] 27.4 kg/m2 [facility] Work Phone: 12-28-2021 10:55-0500 Body temperature 97.4 [degF] [facility] Work Phone: 12-28-2021 10:55-0500 Body weight 77.11 kg [facility] Work Phone: Encounters Encounter Date Encounter Type Care Provider Facility Start: 01-08-2025 [facility] Start: 12-27-2024 End: 12-27-2024 [facility] Start: 11-15-2024 End: 11-15-[address] Salazar Ward MD -[facility] Work Phone: Start: 11-15-2024 End: 11-15-[address] Geronimo Morales DO Work Phone: -[facility] Start: 11-15-2024 End: 11-15-2024 ambulatory Salazar Montenegroivelisse Facility:[facility] Start: 11-06-2024 End: 11-06-2024 ambulatory REHANA CEJA CREWMAN MAIN BATTLE TANK-BRAILLE OPERATOR Facility:[facility] Start: 11-06-2024 End: 11-06-2024 Patient encounter procedure REHANA CEJA CREWMAN MAIN BATTLE TANK-BRAILLE OPERATOR [facility] Start: 08-16-2024 End: 08-16-2024 Patient encounter procedure Lida Rosenberg NP-C -[facility] Work Phone: Start: 08-16-2024 End: 08-16-[address] Geronimo Morales DO Work Phone: [facility] Work Phone: Start: 08-01-[address] Olivier Aleman DO -Cardiovascular Services Work Phone: Start: 08-01-2024 ambulatory Rehana Ceja NP Facil ity:[facility] Start: 08-01-2024 Non-patient / Non-visit Dr. Angelica Rollins MD -[facility] Work Phone: Start: 07-26-2024 Non-patient / Non-visit Dr. Olivier slaughter [facility] Work Phone: Start: 07-25-2024 ambulatory Rehana Ceja NP Facil ity:[facility] Start: 07-25-2024 Non-patient / Non-visit Dr. Omar alcala MD -[facility] Start: 07-25-2024 Non-patient / Non-visit Dr. Olivier slaughter [facility] Work Phone: Start: 07-24-2024 End: 07-26-2024 ambulatory Rehana Ceja PHARMACOGENETICIST Facility:[facility] Start: 07-24-2024 End: 07-26-2024 Evaluation and management of inpatient Dr. Olivier Aleman DO -Intensive Care Unit Work Phone: Start: 07-24-2024 End: 07-26-[address] Geronimo Morales DO Work Phone: [facility] Work Phone: Start: 07-24-2024 ambulatory REHANA LORUNIQUE CREWMAN MAIN BATTLE TANK-BRAILLE OPERATOR Facility:[facility] Start: 04-18-2024 End: 04-18-2024 ambulatory REHANAEL CEJA CREWMAN MAIN BATTLE TANK-BRAILLE OPERATOR Facility:[facility] Start: 04-18-2024 End: 04-18-2024 Patient encounter procedure REHANA LEIUNIQUE CREWMAN MAIN BATTLE TANK-BRAILLE OPERATOR [facility] Start: 03-15-2024 End: 03-15-2024 ambulatory Simón Teran [facility] Start: 12-27-2023 End: 12-27-2023 ambulatory REHANA MARCIAL CREWMAN MAIN BATTLE TANK-BRAILLE OPERATOR Facility:[facility] Start: 12-27-2023 End: 12-27-2023 Patient encounter procedure REHANA CEJA CREWMAN MAIN BATTLE TANK-BRAILLE OPERATOR [facility] Start: 10-31-2023 End: 11-01-2023 Observation ALESHIA BEDOLLA CREWMAN MAIN BATTLE TANK-BRAILLE OPERATOR [facility] Start: 10-25-[address] ALEKSANDR STEPHENSON DO Facili ty:[facility] Start: 10-25-2023 ambulatory REHANA CEJA CREWMAN MAIN BATTLE TANK-BRAILLE OPERATOR Facility:[facility] Start: 10-25-2023 End: 10-29-[address] ALEKSANDR STEPHENSON DO [facility] Start: 10-25-2023 End: 10-25-2023 ambulatory REHANA CEJA CREWMAN MAIN BATTLE TANK-BRAILLE OPERATOR Facility:[facility] Start: 10-25-2023 End: 10-25-[address] ALEKSANDR STEPHENSON DO [facility] Start: 05-02-2023 End: 05-02-2023 ambulatory REHANA CEJA CREWMAN MAIN BATTLE TANK-BRAILLE OPERATOR Facility:[facility] Start: 08-12-2022 End: 08-12-[address] BARNEY ALVAREZ MD [facility] Start: 07-21-2022 End: 07-25-2022 Outreach Lab REHANA LORUNIQUE CREWMAN MAIN BATTLE TANK-BRAILLE OPERATOR [facility] Start: 06-23-2022 End: 06-23-2022 Patient encounter procedure REHANA MARCIAL CREWMAN MAIN BATTLE TANK-BRAILLE OPERATOR [facility] Start: 02-18-2022 Non-patient / Non-visit Dr. Givens Work Phone: [facility] Start: 02-18-2022 End: 02-18-2022 Admission to same day surgery center Dr[facility] Nazanin [facility]endo[facility] Start: 02-18-2022 End: 02-18-[address] Nazanin Mendoza Work Phone: [facility] Work Phone: Start: 02-03-2022 End: 02-03-[address] Nazanin Mendoza Work Phone: [facility] Start: 12-28-2021 End: 12-28-2021 Emergency department patient visit [facility] Start: 08-26-2021 End: 08-26-2021 Patient encounter procedure BOB ROBERTSON CREWMAN MAIN BATTLE TANK-BRAILLE OPERATOR [facility] Start: 04-09-2021 End: 04-09-2021 Patient encounter procedure NAZANIN MENDOZA MD [facility] Procedures Date Procedure Procedure Detail Performing Clinician Start: 07-25-[address] Geronimo Morales DO Work Phone: Start: 07-25-2024 MRI of brain without contrast Dr. Geronimo Morales DO Work Phone: Start: 07-24-2024 Urnls dip stick/tabl et reagent auto microscopy Dr. Geronimo Morales DO Work Phone: Start: 07-24-2024 Plain chest X-ray Dr. Margareth Morales DO Work Phone: Start: 07-24-2024 CT angiography of he ad and neck Dr. Geronimo Morales DO Work Phone: Start: 07-24-2024 CT of head without contrast Dr. Geronimo Morales DO Work Phone: Start: 07-24-[address] Geronimo Morales DO Work Phone: Start: 08-12-[address] BARNEY ALVAREZ MD Start: 02-18-2022 Lap Robotic Inguinal Hernia (Right) Dr. Nazanin Mendoza Work Phone: Start: 02-18-2022 Hernia repair REHANA BUSTAMANTE CREWMAN MAIN BATTLE TANK-BRAILLE OPERATOR Comment on above: R inguinal Start: [...] Treatment Date Care Activity Detail Author Start: 11-15-2024 Folic acid measurement, RBC [facility] Start: 11-15-2024 Thiamine measurement [facility] Start: 11-15-2024 Vitamin B6 measurement [facility] Start: 07-26-2024 Patient discharge [facility] Start: 07-26-2024 [facility] Start: 07-25-2024 Telemedicine consultation with patient [facility] Start: 07-25-2024 [facility] Start: 07-25-2024 Thyroid stimulating hormone measurement [facility] Start: 07-25-2024 Following clinical pathway protocol [facility] Start: 07-25-2024 Aspiration precautions [facility] Start: 07-25-2024 Assessment of risk of venous thromboembolism [facility] Start: 07-25-2024 Cardiac monitoring [facility] Start: 07-25-2024 Catheterization of vein [facility] Start: 07-25-2024 Continuous pulse oximetry [facility] Start: 07-25-2024 Elevation of head of bed [facility] Start: 07-25-2024 Exercises [facility] Start: 07-25-2024 Fall prevention [facility] Start: 07-25-2024 Incentive spirometry [facility] Start: 07-25-2024 Inhalation therapy procedure [facility] Start: 07-25-2024 Insertion of catheter into peripheral vein [facility] Start: 07-25-2024 Introduction of urinary catheter [facility] Start: 07-25-2024 Measuring intake and output [facility] Start: 07-25-2024 MRI of brain without contrast Brain without Contrast [facility] Start: 07-25-2024 Notification of physician [facility] Start: 07-25-2024 Oxygen therapy [facility] Start: 07-25-2024 End: 07-25-2024 Patient referral to dietitian [facility] Start: 07-25-2024 Providing care according to standard [facility] Start: 07-25-2024 Provision of activity privileges [facility] Start: 07-25-2024 Referral for physical therapy [facility] Start: 07-25-2024 Referral to occupational therapist [facility] Start: 07-25-2024 Referral to service [facility] Start: 07-25-2024 Speech therapy assessment [facility] Start: 07-25-2024 Tobacco use cessation education [facility] Start: 07-25-2024 End: 07-25-2024 [facility] Start: 07-25-2024 End: 07-25-2024 Consultation [facility] Start: 07-24-2024 Verification routine [facility] Start: 07-24-2024 Admission procedure [facility] Start: 07-24-2024 End: 07-25-2024 [facility] Start: 02-18-2022 Patient discharge [facility] Work Phone: Alanine aminotransfe rase [Enzymatic activity/volume] in Serum or Plasma [facility] Albumin [Mass/volume ] in Serum or Plasma [facility] Alkaline phosphatase [Enzymatic activity/volume] in Serum or Plasma [facility] Anion gap in Serum or Plasma [facility] Bilirubin, total measurement [facility] BUN/Creatinine ratio [facility] Calcium [Mass/volume ] in Serum or Plasma [facility] Carbon dioxide, tota l [Moles/volume] in Central venous blood [facility] Cardiac event recording [facility] Cholesterol [Mass/vo lume] in Serum or Plasma [facility] Cholesterol in HDL [Mass/volume] in Serum or Plasma [facility] Creatinine [Mass/vol ume] in Serum or Plasma [facility] Erythrocyte mean cor puscular volume determination [facility] Glucose [Mass/volume ] in Serum or Plasma [facility] Hematocrit [Volume F raction] of Blood [facility] Hematocrit [Volume F raction] of Blood [facility] Hemoglobin [Mass/vol ume] in Blood [facility] Hemoglobin A1c/Hemoglobin.total in Blood [facility] Leukocytes [#/volume ] in Blood [facility] Low density lipoprot ein cholesterol measurement [facility] Mean corpuscular hem oglobin concentration determination [facility] Mean corpuscular hem oglobin determination [facility] Measurement of renal function [facility] Neutrophil count [facility] Neutrophil percent differential count [facility] Patient Education ED [place] [address] [facility], Care ED Hernia (Adult) ED Urinary Retention, Male ED Abdominal Pain Unkn Cause Male... [facility] Work Phone: Patient referral [facility] Work Phone: Platelets [#/volume] in Blood [facility] Potassium measurement [facility] Red blood cell count [facility] Red cell distributio n width determination [facility] Serum chloride measurement [facility] Sodium measurement [facility] Total cholesterol:HD L ratio measurement [facility] Total protein measurement [facility] Triglycerides measurement [facility] Urea nitrogen [Mass/ volume] in Serum or Plasma [facility] VLDL cholesterol measurement [facility] Immunizations Immunization Date Immunization Notes Care Provider [facility] 03-24-2022 tetanus toxoid, redu kin diphtheria toxoid, and acellular pertussis vaccine, adsorbed; Translations: [Boostrix (Tdap)] REHANA CEJA CREWMAN MAIN BATTLE TANK-[place] [facility] 11-09-2021 zoster vaccine recombinant REHANA CEJA CREWMAN MAIN BATTLE TANKN42 [facility] 06-09-2021 zoster vaccine recombinant BOB ROBERTSON CREWMAN MAIN BATTLE TANK-[place] [facility] 02-21-2010 tetanus toxoid, redu kin diphtheria toxoid, and acellular pertussis vaccine, adsorbed NAZANIN MENDOZA MD [facility] Payers Date Payer Category Payer Private Health Insurance [id number] 2024 Unknown [id number] 2024 Self-pay 2023 Unknown [id number] 1965 Unknown [id number] 2.16.8 [id number] 1965 Unknown [id number] .16.8 40.1.284569.3.579.2. 1965 Unknown [id number] .16.8 40.1.651525.3.579.2. 1965 Unknown [id number] .16.8 40.1.268582.3.579.2. 1965 Unknown [id number] .16.8 40.1.951633.3.579.2. 1965 Unknown [id number] .. 840.1.993682.3.579.2. 1965 Unknown [id number] ..[id number] 40.1.477860.3.579.2. 1965 Unknown [id number] ..[id number] 40.1.468012.3.579.2. 1965 Unknown [id number] .16.8 40.1.866610.3.579.2.627 Unknown [facility] [id number] Unknown [id number] 2.16.8 40.1.223667.3.579.2.462 Unknown [id number] 2.16.8 40.1.502427.3.579.2.462 Unknown [id number] 2.16.8 40.1.387441.3.579.2.462 Unknown [id number] 2.16.8 40.1.517441.3.579.2.462 Unknown [id number] 2.16.8 40.1.075651.3.579.2.462 Unknown [id number] 2.16.8 40.1.993892.3.579.2.462 Unknown [id number] 2.16.8 40.1.841144.3.579.2.462 Unknown [id number] 2.16.8 40.1.442488.3.579.2.462 Unknown [id number] 2.16.8 40.1.143566.3.579.2.462 Unknown [id number] 2.16.8 40.1.818720.3.579.2.462 Unknown [id number] 2.16.8 40.1.958298.3.579.2.462 Unknown [id number] 2.16.8 40.1.320134.3.579.2.462 Unknown [id number] 2.16.8 40.1.643025.3.579.2.462 Unknown [id number] 2.16.8 40.1.485099.3.579.2.462 Social History Date Type Detail Facility Start: 11-20-2018 End: 08-16-2024 Ex-smoker (finding) [facility] Comment on above: tobacco/smoke exposu re: none Start: 1965 Sex Assigned At Male A [facility] Start: 08-26-2021 Tobacco smoking status Smoker (findi ng) [facility] Comment on above: tobacco/smoke exposu re: none Start: 12-28-2021 End: 07-24-2024 Tobacco smoking status NHIS Unknown if ever smoked [facility] Start: 03-24-2022 End: 08-22-2023 Tobacco smoking status Never smoked tobacco (finding) [facility] Comment on above: tobacco/smoke exposu re: none Sexual Orientation [facility] Start: 08-16-2018 Sex Male (finding) [facility] Sex Male [facility] Medical Equipment Procedure Code Equipment Code Equipment Origin al Text Equipment Identifier Dates Extra-gynaecolog ical surgical mesh, composite-polymer ([id number] FDA Start: 02-18-2022 Goals Date Patient Goal Desired Activity /State Functional Status Date Assessment Result Facility 07-26-2024 Functional status Ambulates;Bedrest [facility] Work Phone: 11-01-2023 Functional Status Room check performed [facility] 11-01-2023 [facility] 11-01-2023 Functional Status [facility] 11-01-2023 Functional Status Nurse Danitza harman q2hrs Performed 7pm-7am [facility] 10-31-2023 Functional Status [facility] 10-31-2023 Functional Status [facility] 10-31-2023 Functional Status [facility] 08-12-2022 Functional Status Sensory Deficits None [facility] 08-12-2022 Functional Status Ambulating in room, Awake [facility] Mental Status Date Assessment Result Facility 07-26-2024 Cognitive function Voice/Name [facility] Work Phone: 07-24-2024 Cognitive function Level Of Cons ciousness Awake;Alert;Appropriate;Follow s Commands [facility] Work Phone: 11-01-2023 Mental Status Oriented x 4 [facility] 10-31-2023 Mental Status [facility] 10-31-2023 Mental Status [facility] 08-12-2022 Mental Status Oriented x 4 [facility] 02-18-2022 Cognitive function Voice/Name [facility] Work Phone: Clinical Notes 06-23-2022 to 11-15-2024 Note Date & Type Note Facility 11-15-2024 Progress note [facility] 07-26-2024 Discharge summary Note Date/Time July 26, 2024 9:03am [facility] Medical Records Department [address] [place] [address] Discharge Summary 07/26/24 0854 MR#: [id number] Acct: [id number] Name: TEODORA GRIFFITH Rep #:[id number] : 1965 59 From: Olivier Aleman DO PCP: BIPIN [facility] Status:ADM I NO [facility] Date of Admission: 07/24/24 Primary Care Physician: BIPIN [facility] Consultations 07/25/24 07:09 [facility] [Consult: Tele-Neurology] Routine Consulting Provider: [facility] Reason for Consult: amnesia EMERGENT Consult: No MD Notified: Yes Date Notified: 07/25/24 Time Notified: 07:43 Method of Notification: Answering Service Nursing Unit Staff Notify [facility] of Tele-Neurology Consult: Yes Reason For Visit: TIA, NEAR SYNCOPE Diagnosis Discharge Diagnosis (1) Amnesia: Status: Acute Code(s): R41.3 - Other amnesia Plan: etiology: TIA/CVA MRI brain showed few foci of abnormal subcortical and periventricular white matter signal in the cerebral hemispheres. Orthostatic vitals negative Echo shows an EF 65%. No PFO/ASD EEG normal. Neuro consult: recommending ASA and clopidogrel 21 days, then ASA. 30-day event monitor. DC home. Follow up with PCP and neurology. Plan VTE prophylaxis: LMWH. Medications at Discharge Home Medications amlodipine 5 mg tablet 5 mg PO DAILY 30 days #30 tabs 11/10/23 aspirin 81 mg tablet,delayed release 81 mg PO BREAKFAST 90 days #90 tabs 11/10/23 metoprolol succinate 25 mg tablet,extended release 24 hr 25 mg PO DAILY 07/24/24 atorvastatin 80 mg tablet (Lipitor) 80 mg PO QHS #30 tabs 07/26/24 clopidogrel 75 mg tablet 75 mg PO DAILY #30 tabs 07/26/24 Hospital Course Operations None Procedures 2-D Echocardiogram Summary of Care Provided Hospital Course: Patient had amnesia while he was out working. Presented to the emergency room and underwent evaluation. It was initially unclear what actually happened to him. Patient underwent EEG that was normal. Did not seem like seizures patienthad no postictal period. But his MRI did show a few foci of abnormal subcortical and periventricular white matter signal in the cerebral hemispheres. Consistent with chronic ischemic white matter disease. Patient was seen by neurology who felt his symptoms were concerning for a TIA. Recommended loading with Plavix, which was did while he is in the hospital, as well as aspirin 81 mgdaily and clopidogrel 35 mg daily for 21 days and then aspirin 81 mg daily thereafter. Addition patient to have a 30-day event monitor. Patient will be discharged home in stable condition. Patient follow-up with his PCP as well as neurology as outpatient. Weight / BMI Weight Weight: 73.709 kg Body Mass Index (BMI) 26.1 ABG / Lab / Microbiology Data 07/25/24 04:20 07/25/24 04:20 Laboratory: Laboratory Results - last 24 hr 07/25/24 04:20: Troponin T High Sens 11 D Radiography Diagnostic Testing: Radiology Impression Brain MRI 07/25/24 01:44 IMPRESSION: 1. Few foci of abnormal subcortical and periventricular white matter signal in the cerebral hemispheres. Nonspecific but consistent with chronic ischemic white matter disease. 2. Other findings as noted. Reading Location: [id number] Echocardiogram 07/25/24 01:44 Interpretation Summary The LV systolic function is normal. EF is 65 %. LV filling pattern indicates impaired relaxation. Bubble contrast study is negative for PFO/ASD. Mild diffuse aortic valve thickening. __ Ordering Physician: Ileana Minaya Referring Physician: Rehana Ceja Performed By: Kaylie Ramirez, YANICK, RVT D/C Instructions Discharge Diet: Low fat / Low cholesterol DC O2, CPAP, BIPAP Needs Home O2 Discharge instructions: No Meaningful Use Info Meaningful Use Meaningful Use Diagnoses (Choose all that apply): Ischemic CVA CVA Therapy Assessed for PT,OT and/or ST?: Yes Ischemic Stroke Antithrombotic order at d/c?: Yes Dx of Atrial fib/flutter?: No Anticoagulant at discharge?: No Reason anticoagulant not ordered: Treatment not Indicated Statin Dosing Therapy Reference: STATIN DOSE THERAPY REFERENCE: * Patients > 75 years receive moderate or high dose statin therapy. * Patients 75 years or YOUNGER should receive HIGH intensity statin dose unless contraindicated. You will be required to document reason for non-treatment if statin daily dose does not meet guidelines. HIGH DOSE STATIN THERAPY DAILY Atorvastatin > than or = to 40 mg Rosuvastatin > than or = to 20 mg Amlodipine + Atorvastatin > than or = to 2.5/40 mg Ezetimibe + Simvastatin 10/80 mg Simvastatin 80mg Statins at discharge?: Yes If patient is 75 or younger, pt will be discharged on HIGH intensity statin.: Yes Primary Dx Acute Ischemic CVA?: Yes IV thrombolytic ordered during stay?: No Reason IV thrombolytic not ordered: Treatment not Indicated Discharge Plan Admission Admit Date/Time: 07/24/24 23:28 Primary Reason for Your Visit: TIA Attending Provider: Olivier Aleman Primary Care Provider: Rehana Ceja NP Consulting Providers: Ileana Minaya; Ankur Del Toro; Nancy Rosenbaum; Joanna Perdomo; Harman Osborne; Tonny Benitez; Bart Pryor; NIRMAL CARVAJAL; Anel Simental; Ara Thapa; Ashkan Adamson; Breana Maciel; Sergei Luu; Jeanne Haq; Niurka Mcdonald; Paulo Dinero; Tessa Steiner; Enio David; Randall Monroe; Alexandro Reddy; Roxanna De Souza; Kenyon Santos; Jori Fam; Lisa Jimenez; Luis Frausto; Chhaya Lutz; Judy,Christos Instructions Additional Instructions / Restrictions: You had transient amnesia. Your workup is more concerning that you had a TIA (short for transient ischemic attack also known as mini stroke). Your MRI did show evidence of small strokes. You did have an EEG (testing for brainwave changes). No seizure activity was noted. He will be on aspirin and Plavix for 21 days and then to continue with aspirin afterwards. I do recommend also that you have a 3-day event monitor to see if you have any heart rhythms, such as atrial fibrillation, that could be a cause of future strokes. Recommend that you follow with your PCP as well as neurology as outpatient Discharge Orders/Prescriptions Prescriptions: New clopidogrel 75 mg Tablet 75 mg PO DAILY Qty: 30 0RF atorvastatin [Lipitor] 80 mg tablet 80 mg PO QHS Qty: 30 0RF Continued amlodipine 5 mg Tablet 5 mg PO DAILY 30 Days Qty: 30 2RF aspirin 81 mg Tablet,Delayed Release (Dr/Ec) 81 mg PO BREAKFAST 90 Days Qty: 90 0RF metoprolol succinate 25 mg tablet extended release 24 hr 25 mg PO DAILY Discontinued atorvastatin 10 mg Tablet 10 mg PO QHS 90 Days Qty: 90 0RF Other Ambulatory Orders: 30 Day Event Recorder Preventi (Urgent) Timeframe: 1 Day Facility: [facility] - Location: Cardiovascular Services Ordered By: Dr. Olivier Aleman Referrals / Follow Up: [facility] [Provider Group] - Within 1 Month Rehana Ceja NP, PHARMACOGENETICIST-C [Primary Care Provider] - Within 2 Weeks Disposition Disposition (needs filled in before D/C Order can be placed): Home, Self Care Charges/Coding Visit Charges Inpatient E&M: 20687 Disch Hosp 07/26/24 0903 <Electronically signed by Olivier Aleman DO> Cosigner Signature (if applicable): CC: BIPIN Ceja; Dr. Olivier Aleman DO~ Signed [facility] Work Phone: 1(374) 870-654206-05-2025 Progress note Author Olivier Aleman [facility] Note Date/Time July 26, 2024 8:53a m [facility] Medical Records Department [address] [place] [address] Progress Note - Hospitalist 07/26/24 0715 MR#: [id number] Acct: [id number] Name: TEODORA GRIFFITH Rep #:[id number] : 1965 59 From: Olivier Aleman DO PCP: BIPIN Clinton Status:ADM I NO Location: ICU [id number] 4-1 Reason for Visit Reason for Visit: Diagnoses Transient cerebral ischemic attack, unspecified (07/24/24) Other amnesia (07/24/24) Subjective Subjective Feels good. No events overnight. Objective Data Objective Data Vital Signs: Vital Signs Temp Pulse Resp BP Pulse Ox O2 Del Method 36.6 C 73 13 98/69 95 Room Air 07/26/24 02:30 07/26/24 02:30 07/26/24 02:30 07/26/24 02:30 07/26/24 02:30 07/26/24 02:30 Oxygen Delivery Method Room Air Weight: 73.709 kg Body Mass Index (BMI) 26.1 Intake & Output: Intake and Output for Last 24 Hours 07/24/24 07/25/24 07/26/24 23:59 23:59 23:59 Intake Total 1000 / 1000 2800 / 2800 Balance 1000 / 1000 2800 / 2800 Lab / Micro Data 07/25/24 04:20 07/25/24 04:20 Labs: Laboratory Results - last 24 hr 07/25/24 04:20: Hemoglobin A1c 5.6, Troponin T High Sens 11 D Radiography Diagnostic Testing: Radiology Impression Brain MRI 07/25/24 01:44 IMPRESSION: 1. Few foci of abnormal subcortical and periventricular white matter signal in the cerebral hemispheres. Nonspecific but consistent with chronic ischemic white matter disease. 2. Other findings as noted. Reading Location: [facility] Echocardiogram 07/25/24 01:44 Interpretation Summary The LV systolic function is normal. EF is 65 %. LV filling pattern indicates impaired relaxation. Bubble contrast study is negative for PFO/ASD. Mild diffuse aortic valve thickening. Ordering Physician: Ileana Minaya Referring Physician: Rehana Ceja Performed By: Kaylie Ramirez, YANICK, RVT Physical Exam Const alert and no apparent distress Constitutional Narrative: up in chair. nontoxic. afebrile. BERRY spontaneously. Assessment & Plan Assessment/Plan (1) Amnesia: PLAN: etiology: TIA/CVA MRI brain showed few foci of abnormal subcortical and periventricular white matter signal in the cerebral hemispheres. Orthostatic vitals negative Echo shows an EF 65%. No PFO/ASD EEG normal. Neuro consult: recommending ASA and clopidogrel 21 days, then ASA. 30-day event monitor. DC home. Follow up with PCP and neurology. PLAN: Plan VTE prophylaxis: LMWH. NIHSS NIHSS Nursing Documentation NIHSS Nursing Documentation: NIHSS: Ischemic Stroke/TIA Start: 07/25/24 01:44 Text: For PCU Patients: NIH and Neuro Check every 4 Status: Complete hours, PRN and with change in RN caregiver. Freq: [id number] Protocol: Activity Type Activity Date Activity User E-sign Co-sign Detail Recorded Client Recorded Date Recorded By Document 07/25/24 18:00 CD [id number] 07/25/24 18:49 CD 07/25/24 18:00 NIH Stroke Scale [NIHSS] A score of 0 is normal or asymptomatic . Total possible score is 42. Inpatient: RN or Physician to activate a stroke alert for onset of new stroke symptoms or with NIHSS increase >/= 3 points. Following change in neurological status, NIHSS will be performed per physician order or more frequently PRN. -1a. Level of Consciousness 0 - Alert; keenly responsive -1b. LOC Questions 0 - Answers BOTH questions correctly -1c. LOC Commands 0 - Performs BOTH tasks correctly -2. Best Gaze 0 - Normal -3. Visual 0 - No visual loss -4. Facial Palsy 0 - Normal symmetrical movements -5a. Left Arm 0 - No drift; arm holds 90 ( or 45) degrees for full 10 seconds -5b. Right Arm 0 - No drift; arm holds 90 ( or 45) degrees for full 10 seconds -6a. Left Leg 0 - No drift; leg holds 30- degree position for full 5 seconds -6b. Right Leg 0 - No drift; leg holds 30- degree position for full 5 seconds -7. Limb Ataxia 0 - Absent -8. Sensory 0 - Normal; no sensory loss -9. Best Language 0 - No aphasia; normal -10. Dysarthria 0 - Normal -11. Extinction and Inattention 0 - No abnormality -Total 0 Query Text:A score of 0 is normal or asymptomatic. Total possible score is 42 . ED: Notify Physician for NIHSS increase by > / = 3 points. Inpatient: RN or Physician to activate a stroke alert for NIHSS increase of > / = 3 points. 07/26/24 0853 <Electronically signed by Olivier Aleman DO> Cosigner Signature (if applicable): CC: ~ Signed [facility] Work Phone: 1(824) 516-572306-05-2025 Discharge summary [facility] Medical Records Department [address] [place] [address] Discharge Summary 07/26/24 0854 MR#: [id number] Acct: [id number] Name: TEODORA GRIFFITH Rep #:[id number] : 1965 59 From: Olivier Aleman DO PCP: BIPIN Clinton Status:ADM I NO Location: ICU [place] [address] Providers Date of Admission: 07/24/24 Primary Care Physician: BIPIN Clinton Consultations 07/25/24 07:09 [facility] [Consult: Tele-Neurology] Routine Consulting Provider: [facility] Reason for Consult: amnesia EMERGENT Consult: No MD Notified: Yes Date Notified: 07/25/24 Time Notified: 07:43 Method of Notification: Answering Service Nursing Unit Staff Notify [facility] of Tele-Neurology Consult: Yes Reason For Visit: TIA, NEAR SYNCOPE Diagnosis Discharge Diagnosis (1) Amnesia: Status: Acute Code(s): R41.3 - Other amnesia Plan: etiology: TIA/CVA MRI brain showed few foci of abnormal subcortical and periventricular white matter signal in the cerebral hemispheres. Orthostatic vitals negative Echo shows an EF 65%. No PFO/ASD EEG normal. Neuro consult: recommending ASA and clopidogrel 21 days, then ASA. 30-day event monitor. DC home. Follow up with PCP and neurology. Plan VTE prophylaxis: LMWH. Medications at Discharge Home Medications amlodipine 5 mg tablet 5 mg PO DAILY 30 days #30 tabs 11/10/23 aspirin 81 mg tablet,delayed release 81 mg PO BREAKFAST 90 days #90 tabs 11/10/23 metoprolol succinate 25 mg tablet,extended release 24 hr 25 mg PO DAILY 07/24/24 atorvastatin 80 mg tablet (Lipitor) 80 mg PO QHS #30 tabs 07/26/24 clopidogrel 75 mg tablet 75 mg PO DAILY #30 tabs 07/26/24 Hospital Course Operations None Procedures 2-D Echocardiogram Summary of Care Provided Hospital Course: Patient had amnesia while he was out working. Presented to the emergency room and underwent evaluation. It was initially unclear what actually happened to him. Patient underwent EEG that was normal. Did not seem like seizures patienthad no postictal period. But his MRI did show a few foci of abnormal subcortical and periventricular white matter signal in the cerebral hemispheres. Consistent with chronic ischemic white matter disease. Patient was seen by neurology who felt his symptoms were concerning for a TIA. Recommended loading with Plavix, which was did while he is in the hospital, as well as aspirin 81 mgdaily and clopidogrel 35 mg daily for 21 days and then aspirin 81 mg daily thereafter. Addition patient to have a 30-day event monitor. Patient will be discharged home in stable condition. Patient follow-up with his PCP as well as neurology as outpatient. Weight / BMI Weight Weight: 73.709 kg Body Mass Index (BMI) 26.1 ABG / Lab / Microbiology Data 07/25/24 04:20 07/25/24 04:20 Laboratory: Laboratory Results - last 24 hr 07/25/24 04:20: Troponin T High Sens 11 D Radiography Diagnostic Testing: Radiology Impression Brain MRI 07/25/24 01:44 IMPRESSION: 1. Few foci of abnormal subcortical and periventricular white matter signal in the cerebral hemispheres. Nonspecific but consistent with chronic ischemic white matter disease. 2. Other findings as noted. Reading Location: [id number] Echocardiogram 07/25/24 01:44 Interpretation Summary The LV systolic function is normal. EF is 65 %. LV filling pattern indicates impaired relaxation. Bubble contrast study is negative for PFO/ASD. Mild diffuse aortic valve thickening. Ordering Physician: Ileana Minaya Referring Physician: Rehana Ceja Performed By: Kaylie Ramirez, YANICK, RVT D/C Instructions Discharge Diet: Low fat / Low cholesterol DC O2, CPAP, BIPAP Needs Home O2 Discharge instructions: No Meaningful Use Info Meaningful Use Meaningful Use Diagnoses (Choose all that apply): Ischemic CVA CVA Therapy Assessed for PT,OT and/or ST?: Yes Ischemic Stroke Antithrombotic order at d/c?: Yes Dx of Atrial fib/flutter?: No Anticoagulant at discharge?: No Reason anticoagulant not ordered: Treatment not Indicated Statin Dosing Therapy Reference: STATIN DOSE THERAPY REFERENCE: * Patients > 75 years receive moderate or high dose statin therapy. * Patients 75 years or YOUNGER should receive HIGH intensity statin dose unless contraindicated. You will be required to document reason for non-treatment if statin daily dose does not meet guidelines. HIGH DOSE STATIN THERAPY DAILY Atorvastatin > than or = to 40 mg Rosuvastatin > than or = to 20 mg Amlodipine + Atorvastatin > than or = to 2.5/40 mg Ezetimibe + Simvastatin 10/80 mg Simvastatin 80mg Statins at discharge?: Yes If patient is 75 or younger, pt will be discharged on HIGH intensity statin.: Yes Primary Dx Acute Ischemic CVA?: Yes IV thrombolytic ordered during stay?: No Reason IV thrombolytic not ordered: Treatment not Indicated Discharge Plan Admission Admit Date/Time: 07/24/24 23:28 Primary Reason for Your Visit: TIA Attending Provider: Olivier Aleman Primary Care Provider: Rehana Ceja PHARMACOGENETICIST Consulting Providers: Ileana Minaya; Ankur Del Toro; Nancy Rosenbaum; Joanna Perdomo; Harman Osborne; Tonny Benitez; Bart Pryor; NIRMAL CARVAJAL; Anel Simental; Ara Thapa; Ashkan Adamson; Breana Maciel; Sergei Luu; Jeanne Haq; Niurka Mcdonald; Paulo Dinero; Tessa Steiner; Enio David; Randall Monroe; Alexandro Vences; Roxanna De Souza; Kenyon Santos; Jori Fam; Lisa Jimenez; Luis Frausto; Chhaya Lutz; Christos Kim Instructions Additional Instructions / Restrictions: You had transient amnesia. Your workup is more concerning that you had a TIA (short for transient ischemic attack also known as mini stroke). Your MRI did show evidence of small strokes. You did havean EEG (testing for brainwave changes). No seizure activity was noted. He will be on aspirin and Plavix for 21 days and then to continue with aspirin afterwards. I do recommend also that you have a 3-day event monitor to see if you have any heart rhythms, such as atrial fibrillation, that could be a cause of future strokes. Recommend that you follow with your PCP as well as neurology as outpatient Discharge Orders/Prescriptions Prescriptions: New clopidogrel 75 mg Tablet 75 mg PO DAILY Qty: 30 0RF atorvastatin [Lipitor] 80 mg tablet 80 mg PO QHS Qty: 30 0RF Continued amlodipine 5 mg Tablet 5 mg PO DAILY 30 Days Qty: 30 2RF aspirin 81 mg Tablet,Delayed Release (Dr/Ec) 81 mg PO BREAKFAST 90 Days Qty: 90 0RF metoprolol succinate 25 mg tablet extended release 24 hr 25 mg PO DAILY Discontinued atorvastatin 10 mg Tablet 10 mg PO QHS 90 Days Qty: 90 0RF Other Ambulatory Orders: 30 Day Event Recorder Preventi (Urgent) Timeframe: 1 Day Facility: [facility] - Location: Cardiovascular Services Ordered By: Dr. Olivier Aleman Referrals / Follow Up: [facility] [Provider Group] - Within 1 Month Rehana Ceja NP, PHARMACOGENETICIST-C [Primary Care Provider] - Within 2 Weeks Disposition Disposition (needs filled in before D/C Order can be placed): Home, Self Care Charges/Coding Visit Charges Inpatient E&M: 90356 Disch Hosp 07/26/24 0903 Cosigner Signature (if applicable): CC: BIPIN Ceja; Dr. Olivier Aleman, DO~ Signed [facility]06-05-2025 [facility] Medical Records Department [address] [place] [address] Discharge Summary 07/26/24 0854 MR#: [id number] Acct: [id number] Name: TEODORA GRIFFITH Rep #: [id number] : 1965 59 From: Olivier Aleman DO PCP: BIPIN Clinton Status:ADM JANNIE Location: ICU [id number] Providers Date of Admission: 07/24/24 Primary Care Physician: BIPIN Clinton Consultations 07/25/24 07:09 [facility] [Consult: Tele-Neurology] Routine Consulting Provider: [facility] Reason for Consult: amnesia EMERGENT Consult: No MD Notified: Yes Date Notified: 07/25/24 Time Notified: 07:43 Method of Notification: Answering Service Nursing Unit Staff Notify [facility] of Tele-Neurology Consult: Yes Reason For Visit: TIA, NEAR SYNCOPE Diagnosis Discharge Diagnosis (1) Amnesia: Status: Acute Code(s): R41.3 - Other amnesia Plan: etiology: TIA/CVA MRI brain showed few foci of abnormal subcortical and periventricular white matter signal in the cerebral hemispheres. Orthostatic vitals negative Echo shows an EF 65%. No PFO/ASD EEG normal. Neuro consult: recommending ASA and clopidogrel 21 days, then ASA. 30-day event monitor. DC home. Follow up with PCP and neurology. Plan VTE prophylaxis: LMWH. Medications at Discharge Home Medications amlodipine 5 mg tablet 5 mg PO DAILY 30 days #30 tabs 11/10/23 aspirin 81 mg tablet,delayed release 81 mg PO BREAKFAST 90 days #90 tabs 11/10/23 metoprolol succinate 25 mg tablet,extended release 24 hr 25 mg PO DAILY 07/24/24 atorvastatin 80 mg tablet (Lipitor) 80 mg PO QHS #30 tabs 07/26/24 clopidogrel 75 mg tablet 75 mg PO DAILY #30 tabs 07/26/24 Hospital Course Operations None Procedures 2-D Echocardiogram Summary of Care Provided Hospital Course: Patient had amnesia while he was out working. Presented to the emergency room and underwent evaluation. It was initially unclear what actually happened to him. Patient underwent EEG that was normal. Did not seem like seizures patient had no postictal period. But his MRI did show a few foci of abnormal subcortical and periventricular white matter signal in the cerebral hemispheres. Consistent with chronic ischemic white matter disease. Patient was seen by neurology who felt his symptoms were concerning for a TIA. Recommended loading with Plavix, which was did while he is in the hospital, as well as aspirin 81 mg daily and clopidogrel 35 mg daily for 21 days and then aspirin 81 mg daily thereafter. Addition patient to have a 30-day event monitor. Patient will be discharged home in stable condition. Patient follow-up with his PCP as well as neurology as outpatient. Weight / BMI Weight Weight: 73.709 kg Body Mass Index (BMI) 26.1 ABG / Lab / Microbiology Data 07/25/24 04:20 07/25/24 04:20 Laboratory: Laboratory Results - last 24 hr 07/25/24 04:20: Troponin T High Sens 11 D Radiography Diagnostic Testing: Radiology Impression Brain MRI 07/25/24 01:44 IMPRESSION: 1. Few foci of abnormal subcortical and periventricular white matter signal in the cerebral hemispheres. Nonspecific but consistent with chronic ischemic white matter disease. 2. Other findings as noted. Reading Location: [id number] Echocardiogram 07/25/24 01:44 Interpretation Summary The LV systolic function is normal. EF is 65 %. LV filling pattern indicates impaired relaxation. Bubble contrast study is negative for PFO/ASD. Mild diffuse aortic valve thickening. Ordering Physician: Ileana Minaya Referring Physician: Rehana Ceja Performed By: Kaylie Ramirez, YANICK, RVT D/C Instructions Discharge Diet: Low fat / Low cholesterol DC O2, CPAP, BIPAP Needs Home O2 Discharge instructions: No Meaningful Use Info Meaningful Use Meaningful Use Diagnoses (Choose all that apply): Ischemic CVA CVA Therapy Assessed for PT,OT and/or ST?: Yes Ischemic Stroke Antithrombotic order at d/c?: Yes Dx of Atrial fib/flutter?: No Anticoagulant at discharge?: No Reason anticoagulant not ordered: Treatment not Indicated Statin Dosing Therapy Reference: STATIN DOSE THERAPY REFERENCE: * Patients > 75 years receive moderate or high dose statin therapy. * Patients 75 years or YOUNGER should receive HIGH intensity statin dose unless contraindicated. You will be required to document reason for non-treatment if statin daily dose does not meet guidelines. HIGH DOSE STATIN THERAPY DAILY Atorvastatin > than or = to 40 mg Rosuvastatin > than or = to 20 mg Amlodipine + Atorvastatin > than or = to 2.5/40 mg Ezetimib (more content not included)...[facility]06-05-2025 Progress note [facility] Medical Records Department [address] [place] [address] Progress Note - Hospitalist 07/26/24 0715 MR#: [id number] Acct: [id number] Name: TEODORA GRIFFITH Rep #:[id number] : 1965 59 From: Olivier Aleman DO PCP: BIPIN Clinton Status:ADM I NO Location: ICU CVICU 4-1 Reason for Visit Reason for Visit: Diagnoses Transient cerebral ischemic attack, unspecified (07/24/24) Other amnesia (07/24/24) Subjective Subjective Feels good. No events overnight. Objective Data Objective Data Vital Signs: Vital Signs Temp Pulse Resp BP Pulse Ox O2 Del Method 36.6 C 73 13 98/69 95 Room Air 07/26/24 02:30 07/26/24 02:30 07/26/24 02:30 07/26/24 02:30 07/26/24 02:30 07/26/24 02:30 Oxygen Delivery Method Room Air Weight: 73.709 kg Body Mass Index (BMI) 26.1 Intake & Output: Intake and Output for Last 24 Hours 07/24/24 07/25/24 07/26/24 23:59 23:59 23:59 Intake Total 1000 / 1000 2800 / 2800 Balance 1000 / 1000 2800 / 2800 Lab / Micro Data 07/25/24 04:20 07/25/24 04:20 Labs: Laboratory Results - last 24 hr 07/25/24 04:20: Hemoglobin A1c 5.6, Troponin T High Sens 11 D Radiography Diagnostic Testing: Radiology Impression Brain MRI 07/25/24 01:44 IMPRESSION: 1. Few foci of abnormal subcortical and periventricular white matter signal in the cerebral hemispheres. Nonspecific but consistent with chronic ischemic white matter disease. 2. Other findings as noted. Reading Location: [id number] Echocardiogram 07/25/24 01:44 Interpretation Summary The LV systolic function is normal. EF is 65 %. LV filling pattern indicates impaired relaxation. Bubble contrast study is negative for PFO/ASD. Mild diffuse aortic valve thickening. Ordering Physician: Ileana Minaya Referring Physician: Rehana Ceja Performed By: Kaylie Ramirez, YANICK, RVT Physical Exam Const alert and no apparent distress Constitutional Narrative: up in chair. nontoxic. afebrile. BERRY spontaneously. Assessment & Plan Assessment/Plan (1) Amnesia: PLAN: etiology: TIA/CVA MRI brain showed few foci of abnormal subcortical and periventricular white matter signal in the cerebral hemispheres. Orthostatic vitals negative Echo shows an EF 65%. No PFO/ASD EEG normal. Neuro consult: recommending ASA and clopidogrel 21 days, then ASA. 30-day event monitor. DC home. Follow up with PCP and neurology. PLAN: Plan VTE prophylaxis: LMWH. NIHSS NIHSS Nursing Documentation NIHSS Nursing Documentation: NIHSS: Ischemic Stroke/TIA Start: 07/25/24 01:44 Text: For PCU Patients: NIH and Neuro Check every 4 Status: Complete hours, PRN and with change in RN caregiver. Freq: [id number] Protocol: Activity Type Activity Date Activity User E-sign Co-sign Detail Recorded Client Recorded Date Recorded By Document 07/25/24 18:00 CD [id number] 07/25/24 18:49 CD 07/25/24 18:00 NIH Stroke Scale [NIHSS] A score of 0 is normal or asymptomatic . Total possible score is 42. Inpatient: RN or Physician to activate a stroke alert for onset of new stroke symptoms or with NIHSS increase >/= 3 points. Following change in neurological status, NIHSS will be performed per physician order or more frequently PRN. -1a. Level of Consciousness 0 - Alert; keenly responsive -1b. LOC Questions 0 - Answers BOTH questions correctly -1c. LOC Commands 0 - Performs BOTH tasks correctly -2. Best Gaze 0 - Normal -3. Visual 0 - No visual loss -4. Facial Palsy 0 - Normal symmetrical movements -5a. Left Arm 0 - No drift; arm holds 90 ( or 45) degrees for full 10 seconds -5b. Right Arm 0 - No drift; arm holds 90 ( or 45) degrees for full 10 seconds -6a. Left Leg 0 - No drift; leg holds 30- degree position for full 5 seconds -6b. Right Leg 0 - No drift; leg holds 30- degree position for full 5 seconds -7. Limb Ataxia 0 - Absent -8. Sensory 0 - Normal; no sensory loss -9. Best Language 0 - No aphasia; normal -10. Dysarthria 0 - Normal -11. Extinction and Inattention 0 - No abnormality -Total 0 Query Text:A score of 0 is normal or asymptomatic. Total possible score is 42 . ED: Notify Physician for NIHSS increase by > / = 3 points. Inpatient: RN or Physician to activate a stroke alert for NIHSS increase of > / = 3 points. 07/26/24 0853 Cosigner Signature (if applicable): CC: ~ Signed [facility]06-04-2025 Consult note Author Nancy Rosenbaum [facility] Note Date/Time July 25, 2024 6:34p m [facility] Medical Records Department [address] [place] [id number] Consultation - Neurology 07/25/24 1338 MR#: [id number] Acct: [id number] Name: TEODORA GRIFFITH Rep #:[id number] : 1965 59 From: Nancy Rosenbaum MD PCP: BIPIN Clinton Status:ADM I NO Location: ICU CVICU20 4-1 Assessment and Plan: Neuro Assessment/Plan TEODORA GRIFFITH is a 59 M with a past medical history of HLD, HTN, being evaluated by Teleneurology for transient episodes of confusion, L sided numbness, and dizziness. At this time the history is nonspecific but given the transient episodes, concern for TIA. Seizure cannot be ruled out but believe this is less likely. Exam is nonfocal. Imaging relatively benign. - Anti-platelet medication: Plavix 300mg once and ASA 81mg + Plavix 75mg x 21 days, then ASA 81mg daily - DVT prophylaxis with SCDs and heparin SQ - recommend 30 day holter monitor after discharge - Vascular risk factor modification. The following are the recommended guidelines: LDL Goal < 70 Smoking Cessation Diabetes Management director river restoration blood pressure control should achieve <130/80 mmHg. BP managementshould aim to achieve manager material contorl in a reasonable amount of time, taking into consideration the individual patient's requirements and characteristics. Weight Management: Goal for BMI is 18.5 -24.9 kg/m2 Alcohol: No more than 2 drinks/day for men or 1 drink/day for non- women - Promote lifestyle modification: weight control, physical activity, moderation of alcohol intake, moderate sodium intake. I personally attended this patient and spent a total time of minutes evaluating this patient including clinical assessment, review of chart, medical history imaging, and determining appropriate treatment and workup. HPI Consult Data Date of Consult: 07/25/24 HPI Narrative HPI Narrative: The patient is a 59 y/o M w/ PMHx: Chew tobacco use, Chronic anemia/Fe deficiency anemia, GERD, HTN, HLD, RLS, Migraine headaches who presents to the [facility] ED with history at approximately 7 PM of complete amnesia lasting 15-30 seconds with complete resolution following however he alsonotes that he had mild dizziness on Tuesday which required him to lay down to avoid passing out prompting PCP evaluation who arrange outpatient evaluation. Patient had similar episode of confusion that was very short-lived on 07/14/2024 with memory resolution completely following. He does state some discomfort to the left shoulder and does have some mild altered sensation to the left shoulderfocally as well as occasionally his left cheek. Currently he notes complete resolution of all symptoms. He currently denies anylightheadedness or dizziness. Workup in the ED included T97.5, heart 92, BP 130/102, respiratory rate 18, 100 % room air, CBC with WBC 7.4, he 1 15.2, platelet 326 without marked shift, unremarkable coags, BMP with potassium 3.2, carbon oxide 19.1, glucose 157, troponin 7, CT of the brain with no acute intracranial findings, CTA head and neck with no acute abnormalities, chest x-ray with no acute cardiopulmonary findings, EKG with SR without evidence of acute ischemia. In the ED patient ministered 1 L normal saline and potassium 40 mg p.o. x 1. UA pending upon evaluation. Neurologic History First episode of dizziness (lightheadedness) was on Tuesday and lay down and hecould not remember what he did before the dizziness. Yesterday had event while driving and could not remember where he was going and what he was doing. Then hecontinued driving as he felt better. No dizziness with that episode. The numbness happened after patient came to the hospital (had tingling in the fingerand L leg). Never had memory loss like that before. Lightheadedness yesterday happened during the episode of memory loss. the numbness lasted < 1 hr. Never had this happen, never had stroke before. Never had heart problems. No stopped or changed medications recently. No change in diet or exercise recently.BP normally in 120s. Neurologic Ecam -? General: Laying comfortably in bed; in no acute distress. -? HENT: Normal oropharynx and mucosa. Normal external appearance of ears and nose. Exophthalmos. -? Neck: Supple, no pain or tenderness -? CV:? No peripheral edema. -? Pulmonary:? Normal respiratory effort. -? Ext: No cyanosis, edema, or deformity -? Skin: No rash. Normal palpation of skin.? -? Musculoskeletal: full range of motion; no joint tenderness. Normal digits and nails by inspection. No clubbing. -? NEURO: -? Mental Status: The patient was alert and oriented to time, place, andperson. Normal recent/remote memory, concentration, and general fund of knowledge. -? Language: speech is clear.? Naming, repetition, fluency, and comprehension intact. -? Cranial Nerves: PERRL 3 mm/brisk. EOMI, visual duckworth full, no facialasymmetry, facial sensation intact, hearing intact, tongue midline, no evidence of atrophy or fibrillations. -? Motor: normal bulk, tone, and strength throughout. No pronator drift or satelliting. Upper and lower extremities equal bilaterally. -? Detailed strength exam as performed by the nurse/SIMONA and witnessed bythe physician: l R L SA 5 5 EE EF 5 5 WE WF Repairer Evaporator 5 5 HF KE KF 5 5 DF 5 5 PF -? Tone: is normal and bulk is normal -? Sensation- Intact to light touch bilaterally -? Coordination: No dysmetria on [id number], finger follow finger or [id number]. -? Gait- Gait initiation was normal. Narrow base with good heel strike and stride length was observed during ambulation. Turns were in stride. Patient was able to walk normally in tandem. Romberg was normal. PFSH Medical History Left carpal tunnel syndrome Bilateral knee pain Former smoker Obesity (BMI 30.0-34.9) Incisional hernia Hypokalemia Atypical chest pain Iron deficiency anemia Elevated PSA GERD (gastroesophageal reflux disease) Essential (primary) hypertension Lightheadedness SOB (shortness of breath) Osteoarthritis of left knee Left knee pain Arthritis Restless legs Migraine headache Chewing tobacco nicotine dependence Home Medications ?Medication ?Instructions ?Recorded ?Last Taken ?Type amlodipine 5 mg tablet 5 mg PO DAILY 30 days #30 ta bs 11/10/23 Unknown Rx aspirin 81 mg tablet,delayed 81 mg PO BREAKFAST 90 day s #90 tabs 11/10/23 Unknown Rx release atorvastatin 10 mg tablet 10 mg PO QHS 90 days #90 tab s 11/10/23 Unknown Rx metoprolol succinate 25 mg 25 mg PO DAILY 07/24/24 Unk nown History tablet,extended release 24 hr Allergy/AdvReac Type Severity Reaction Status Date / Time shellfish derived Allergy Anaphylaxis Verified 07/24/24 21:03 Family History Mother Heart disease Diabetes Hypertension Father Cancer Kidney disease Heart disease Surgical History Hx of appendectomy Hx of arthroscopy of shoulder Hx of inguinal hernia repair H/O hand surgery Social History household members: spouse Smoking Status: Unknown if ever smoked Smokeless tobacco user: chewing tobacco alcohol intake: never substance use type: does not use Vital Signs Vital Signs Vital Signs: 07/24/24 21:03 07/24/24 23:02 07/24/24 23:39 Temperature 97.5 F L 97.7 F L Temperature Source Temporal Pulse Rate 92 82 76 Pulse Strength Respiratory Rate 18 20 H 15 Blood Pressure 130/102 H 124/92 H 124/92 H Blood Pressure [Lying] Blood Pressure [Sitting (for 1 minute prior to obtaining)] Blood Pressure [Standing (for 1 minute prior to obtaining)] Blood Pressure Mean 111 102 102 Blood Pressure Mean [Lying] Blood Pressure Mean [Sitting (for 1 minute prior to obtaining)] Blood Pressure Mean [Standing (for 1 minute prior to obtaining)] Blood Pressure Source Blood Pressure Position Blood Pressure Location Pulse Ox 100 96 93 Oxygen Delivery Method Room Air 07/25/24 01:00 07/25/24 01:44 07/25/24 01:45 Temperature 97.7 F L Temperature Source Temporal Pulse Rate 76 63 Pulse Strength Respiratory Rate 19 H 12 Blood Pressure 131/94 H 127/86 H Blood Pressure [Lying] 119/92 H Blood Pressure [Sitting (for 1 minute prior to obtaining)] 121/98 H Blood Pressure [Standing (for 1 minute prior to obtaining)] 118/91 H Blood Pressure Mean 106 99 Blood Pressure Mean [Lying] 101 Blood Pressure Mean [Sitting (for 1 minute prior to obtaining)] 105 Blood Pressure Mean [Standing (for 1 minute prior to obtaining)] 100 Blood Pressure Source Monitor Blood Pressure Position Supine Blood Pressure Location Right Arm Pulse Ox 93 97 Oxygen Delivery Method Room Air 07/25/24 02:00 07/25/24 06:00 07/25/24 07:00 Temperature 97.7 F L 97.6 F L Temperature Source Temporal Temporal Pulse Rate 72 66 69 Pulse Strength Respiratory Rate 18 13 Blood Pressure 118/91 H 111/76 Blood Pressure [Lying] Blood Pressure [Sitting (for 1 minute prior to obtaining)] Blood Pressure [Standing (for 1 minute prior to obtaining)] Blood Pressure Mean 100 87 Blood Pressure Mean [Lying] Blood Pressure Mean [Sitting (for 1 minute prior to obtaining)] Blood Pressure Mean [Standing (for 1 minute prior to obtaining)] Blood Pressure Source Monitor Monitor Blood Pressure Position Semi-Fowlers Semi-Fowlers Blood Pressure Location Right Arm Right Arm Pulse Ox 97 97 Oxygen Delivery Method Room Air Room Air 07/25/24 07:22 07/25/24 10:00 07/25/24 11:13 Temperature 98.7 F Temperature Source Temporal Pulse Rate 63 Pulse Strength Normal (2+) Respiratory Rate 16 Blood Pressure 122/85 H Blood Pressure [Lying] Blood Pressure [Sitting (for 1 minute prior to obtaining)] Blood Pressure [Standing (for 1 minute prior to obtaining)] Blood Pressure Mean 97 Blood Pressure Mean [Lying] Blood Pressure Mean [Sitting (for 1 minute prior to obtaining)] Blood Pressure Mean [Standing (for 1 minute prior to obtaining)] Blood Pressure Source Monitor Blood Pressure Position Supine Blood Pressure Location Right Arm Pulse Ox 97 96 Oxygen Delivery Method Room Air Room Air 07/25/24 11:34 Temperature Temperature Source Pulse Rate 77 Pulse Strength Respiratory Rate Blood Pressure Blood Pressure [Lying] Blood Pressure [Sitting (for 1 minute prior to obtaining)] Blood Pressure [Standing (for 1 minute prior to obtaining)] Blood Pressure Mean Blood Pressure Mean [Lying] Blood Pressure Mean [Sitting (for 1 minute prior to obtaining)] Blood Pressure Mean [Standing (for 1 minute prior to obtaining)] Blood Pressure Source Blood Pressure Position Blood Pressure Location Pulse Ox Oxygen Delivery Method Weight Weight: 163.7 kg Body Mass Index (BMI) 58.2 EEG Results Procedure Details EEG Procedure Details: TEODORA GRIFFITH is a 59 year old M with a past medical history of , who presents for evaluation of Electroencephalogram on DATE at TIME Lab / Micro Data 07/25/24 04:20 07/25/24 04:20 Labs: Laboratory Results - last 24 hr 07/24/24 21:15: WBC 7.4, RBC 4.96, Hgb 15.2, Hct 42.9, MCV 86.5, MCH 30.6, MCHC 35.4, RDW Std Deviation 37.2, RDW Coeff of [place] 11.8, Plt Count 326, MPV 8.8, Immature Gran % (Auto) 0.700, Neut % (Auto) 75.1 H, Lymph % (Auto) 17.2 L, Colbert % (Auto) 5.5, Eos % (Auto) 1.1, Baso % (Auto) 0.4, Absolute Neuts (auto) 5.6, Absolute Lymphs (auto) 1.27, Nucleated RBC % 0, PT 14.3, INR 1.1, APTT 27.5, Sodium 139, Potassium 3.2 L, Chloride 105, Carbon Dioxide 19.1 L, Anion Gap 15, BUN 9, Creatinine 0.83, Estim Creat Clear Calc 86.48, Est GFR (MDRD) Non-Af 101,BUN/Creatinine Ratio 10.6, Glucose 157 H, Calcium 9.2, Magnesium 1.8, Troponin THigh Sens 7 07/24/24 23:36: Urine Color Yellow, Urine Clarity Clear, Urine pH 6.5, Ur Specific [place] 1.010, Urine Protein 15 H, Urine Glucose (UA) Normal, Urine Ketones Negative, Urine Occult Blood Negative, Urine Nitrite Negative, Urine Bilirubin Negative, Urine Urobilinogen Normal, Ur Leukocyte Esterase Negative, Urine RBC 0 SEEN, Urine WBC 0 SEEN, Ur Squamous Epith Cells 0 SEEN, Urine Bacteria 0 SEEN, Urine Mucus 0 SEEN 07/25/24 04:20: WBC 6.7, RBC 4.59 L, Hgb 14.1, Hct 40.4, MCV 88.0, MCH 30.7, MCHC 34.9, RDW Std Deviation 38.2, RDW Coeff of [place] 11.9, Plt Count 276, MPV 9.0, Immature Gran % (Auto) 0.300, Neut % (Auto) 66.1, Lymph % (Auto) 23.5, Colbert% (Auto) 7.4, Eos % (Auto) 2.1, Baso % (Auto) 0.6, Absolute Neuts (auto) 4.5, Absolute Lymphs (auto) 1.58, Nucleated RBC % 0, Sodium 139, Potassium 3.9, Chloride 109 H, Carbon Dioxide 20.4 L, Anion Gap 10, BUN 8, Creatinine 0.66 L, Estim Creat Clear Calc 176.86, Est GFR (MDRD) Non-Af 108, BUN/Creatinine Ratio 11.4, Glucose 97, Hemoglobin A1c 5.6, Calcium 8.7, Total Bilirubin 0.99, AST 24,ALT 20, Alkaline Phosphatase 65, Troponin T High Sens 11 D, Total Protein 5.8 L, Albumin 3.7, Globulin 2.1 L, Albumin/Globulin Ratio 1.7, Triglycerides 62, Cholesterol 123, LDL Cholesterol, Calc 54, VLDL Cholesterol 12, HDL Cholesterol 57, Cholesterol/HDL Ratio 2.16, TSH 1.740 Imaging Radiology Impression Brain CT 07/24/24 21:43 IMPRESSION: No acute intracranial abnormality. Reading Location: [id number] Head/Neck CTA 07/24/24 21:43 IMPRESSION: No acute arterial abnormality of the head or neck. Reading Location: [id number] Chest X-Ray 07/24/24 22:10 IMPRESSION: No acute cardiopulmonary abnormality. Reading Location: [id number] Brain MRI 07/25/24 01:44 IMPRESSION: 1. Few foci of abnormal subcortical and periventricular white matter signal in the cerebral hemispheres. Nonspecific but consistent with chronic ischemic white matter disease. 2. Other findings as noted. Reading Location: [id number] Echocardiogram 07/25/24 01:44 Interpretation Summary The LV systolic function is normal. EF is 65 %. LV filling pattern indicates impaired relaxation. Bubble contrast study is negative for PFO/ASD. Mild diffuse aortic valve thickening. Ordering Physician: Ileana Minaya Referring Physician: Rehana Ceja Performed By: Kaylie Ramirez, YANICK, RVT Active Medications Active Medications Active Medications: Current Medications Generic Name Dose Route Start Last Admin Trade Name Freq PRN Reason Stop Dose Admin Acetaminophen 650 mg 07/25/24 01:44 07/25/24 02:13 Acetaminophen 325 Mg Tablet PO 650 mg Q4H PRN PRN Administration Fever, pain 1-11/30 Al Hydroxide/Mg Hydroxide 30 ml 07/25/24 01:44 Mag Hydrox/Al Hydrox/Simeth 30 Ml Udc PO Q6H PRN PRN Gastric Burning Albuterol Sulfate 2.5 mg 07/25/24 01:44 Albuterol 2.5 Mg/3 Ml Vial.Neb. INHALATION Q2H PRN PRN Dyspnea, wheezing Aspirin 81 mg 07/25/24 08:00 07/25/24 11:07 Aspirin E.C. 81 Mg Tablet PO 81 mg BREAKFAST JAMIE Administration Atorvastatin Calcium 10 mg 07/25/24 22:00 Atorvastatin Calcium 10 Mg Tablet PO QHS JAMIE Enoxaparin Sodium 40 mg 07/25/24 10:00 07/25/24 11:06 Enoxaparin 40 Mg/0.4 Ml Syringe SC 40 mg DAILY JAMIE Administration Guaifenesin 20 ml 07/25/24 01:44 Guaifenesin 10 Ml Udc (200mg/10ml) PO Q4H PRN PRN COUGH Hydralazine HCl 5 mg 07/25/24 01:44 Hydralazine 20 Mg/Ml Vial IV 07/26/24 01:44 Q30M PRN maintain BP parameters with HR <60 Sodium Chloride 250 mls @ 15 mls/hr 07/25/24 02:26 IV .[id number] PRN Saline Flush Sodium Chloride 250 mls @ 15 mls/hr 07/25/24 02:26 IV .[id number] PRN Additional IVPB Infusion Labetalol HCl 10 - 20 mg 07/25/24 01:44 Labetalol 20 Mg/4 Ml Vial IV 07/26/24 01:44 Q10M PRN PRN maintain BP parameters with HR >/=60 Melatonin 3 mg 07/25/24 01:44 Melatonin 3 Mg Tablet PO QHS PRN PRN INSOMNIA Nicotine Polacrilex 2 mg 07/25/24 01:44 Nicotine Polacrilex 2 Mg Gum PO Q2H PRN PRN Nicotine Craving Ondansetron HCl 4 mg 07/25/24 01:44 Ondansetron 4 Mg/2 Ml Vial IV Q8H PRN PRN NAUSEA/VOMITING Prochlorperazine Edisylate 5 mg 07/25/24 01:44 Prochlorperazine 10 Mg/2 Ml Vial IV Q4H PRN PRN Breakthrough Nausea/Vomiting Senna/Docusate Sodium 2 tablet 07/25/24 01:44 Senna/Docusate Sodium 1 Tablet PO BID PRN PRN Constipation Sodium Chloride 10 - 40 ml 07/25/24 02:26 0.9% Saline Lock 10 Ml Syringe IV UD PRN SALINE FLUSH NIHSS NIHSS Nursing Documentation NIHSS Nursing Documentation: NIHSS: Ischemic Stroke/TIA Start: 07/25/24 01:44 Text: For PCU Patients: NIH and Neuro Check every 4 Status: Active hours, PRN and with change in RN caregiver. Freq: [id number] Protocol: Activity Type Activity Date Activity User E-sign Co-sign Detail Recorded Client Recorded Date Recorded By Document 07/25/24 11:16 CD [id number] 07/25/24 11:17 CD 07/25/24 11:16 NIH Stroke Scale [NIHSS] A score of 0 is normal or asymptomatic . Total possible score is 42. Inpatient: RN or Physician to activate a stroke alert for onset of new stroke symptoms or with NIHSS increase >/= 3 points. Following change in neurological status, NIHSS will be performed per physician order or more frequently PRN. -1a. Level of Consciousness 0 - Alert; keenly responsive -1b. LOC Questions 0 - Answers BOTH questions correctly -1c. LOC Commands 0 - Performs BOTH tasks correctly -2. Best Gaze 0 - Normal -3. Visual 0 - No visual loss -4. Facial Palsy 0 - Normal symmetrical movements -5a. Left Arm 0 - No drift; arm holds 90 ( or 45) degrees for full 10 seconds -5b. Right Arm 0 - No drift; arm holds 90 ( or 45) degrees for full 10 seconds -6a. Left Leg 0 - No drift; leg holds 30- degree position for full 5 seconds -6b. Right Leg 0 - No drift; leg holds 30- degree position for full 5 seconds -7. Limb Ataxia 0 - Absent -8. Sensory 1 - Mild-to- moderate sensory loss; -9. Best Language 0 - No aphasia; normal -10. Dysarthria 0 - Normal -11. Extinction and Inattention 0 - No abnormality -Total 1 Query Text:A score of 0 is normal or asymptomatic. Total possible score is 42 . ED: Notify Physician for NIHSS increase by > / = 3 points. Inpatient: RN or Physician to activate a stroke alert for NIHSS increase of > / = 3 points. 07/25/24 1834 <Electronically signed by Nancy Rosenbaum MD> Cosigner Signature (if applicable): CC: PHARMACOGENETICIST-C Rehana Ceja~ Signed [facility] Work Phone: 1(170) 762-604106-04-2025 Consult note [facility] Medical Records Department [address] [place] [address] Consultation - Neurology 07/25/24 1338 MR#: [id number] Acct: [id number] Name: TEODORA GRIFFITH Rep #:[id number] : 1965 59 From: Nancy Rosenbaum MD PCP: BIPIN Clinton Status:ADM I NO Location: ICU CVICU20 4-1 Assessment and Plan: Neuro Assessment/Plan TEODORA GRIFFITH is a 59 M with a past medical history of HLD, HTN, being evaluated by Teleneurology for transient episodes of confusion, L sided numbness, and dizziness. At this time the history is nonspecific but given the transient episodes, concern for TIA. Seizure cannot be ruled out but believe this is less likely. Exam is nonfocal. Imaging relatively benign. - Anti-platelet medication: Plavix 300mg once and ASA 81mg + Plavix 75mg x 21 days, then ASA 81mg daily - DVT prophylaxis with SCDs and heparin SQ - recommend 30 day holter monitor after discharge - Vascular risk factor modification. The following are the recommended guidelines: LDL Goal < 70 Smoking Cessation Diabetes Management correction blood pressure control should achieve <130/80 mmHg. BP managementshould aim to achievelong term contorl in a reasonable amount of time, taking into consideration the individual patient's requirements and characteristics. Weight Management: Goal for BMI is 18.5 -24.9 kg/m2 Alcohol: No more than 2 drinks/day for men or 1 drink/day for non- women - Promote lifestyle modification: weight control, physical activity, moderation of alcohol intake, moderate sodium intake. I personally attended this patient and spent a total time of minutes evaluating this patient including clinical assessment, review of chart, medical history imaging, and determining appropriate treatment and workup. HPI Consult Data Date of Consult: 07/25/24 HPI Narrative HPI Narrative: The patient is a 59 y/o M w/ PMHx: Chew tobacco use, Chronic anemia/Fe deficiency anemia, GERD, HTN, HLD, RLS, Migraine headaches who presents to the [facility] ED with history at approximately 7 PM of complete amnesia lasting 15-30 seconds with complete resolution following howeverhe alsonotes that he had mild dizziness on Tuesday which required him to lay down to avoid passingout prompting PCP evaluation who arrange outpatient evaluation. Patient had similar episode of confusion that was very short-lived on 07/14/2024 with memory resolution completely following. He does state some discomfort to the left shoulder and does have some mild altered sensation to the left should erfocally as well as occasionally his left cheek. Currently he notes complete resolution of all symptoms. He currently denies anylightheadedness or dizziness. Workup in the ED included T97.5, heart 92, BP 130/102, respiratory rate 18, 100 % room air, CBC with WBC 7.4, he 1 15.2, platelet 326 without marked shift, unremarkable coags, BMP with potassium 3.2, carbon oxide 19.1, glucose 157, troponin 7, CT of the brain with no acute intracranial findings, CTA head and neck with no acute abnormalities, chest x- ray with no acute cardiopulmonary findings, EKG with SR without evidence of acute ischemia. In the ED patient ministered 1 L normal salineand potassium 40 mg p.o. x 1. UA pending upon evaluation. Neurologic History First episode of dizziness (lightheadedness) was on Tuesday and lay down and hecould not remember what he did before the dizziness. Yesterday had event while driving and could not remember where he was going and what he was doing. Then hecontinued driving as he felt better. No dizziness with that episode. The numbness happened after patient came to the hospital (had tingling in the fingerand L leg). Never had memory loss like that before. Lightheadedness yesterday happened during the episode of memory loss. the numbness lasted < 1 hr. Never had this happen, never had stroke before. Never had heart problems. No stopped or changed medications recently. No change in diet or exercise recently.BP normally in 120s. Neurologic Ecam -? General: Laying comfortably in bed; in no acute distress. -? HENT: Normal oropharynx and mucosa. Normal external appearance of ears and nose. Exophthalmos. -? Neck: Supple, no pain or tenderness -? CV:? No peripheral edema. -? Pulmonary:? Normal respiratory effort. -? Ext: No cyanosis, edema, or deformity -? Skin: No rash. Normal palpation of skin.? -? Musculoskeletal: full range of motion; no joint tenderness. Normal digits and nails by inspection. No clubbing. -? NEURO: -? Mental Status: The patient was alert and oriented to time, place, andperson. Normal recent/remote memory, concentration, and general fund of knowledge. -? Language: speech is clear.? Naming, repetition, fluency, and comprehension intact. -? Cranial Nerves: PERRL 3 mm/brisk. EOMI, visual duckworth full, no facialasymmetry, facial sensation intact, hearing intact, tongue midline, no evidence of atrophy or fibrillations. -? Motor: normal bulk, tone, and strength throughout. No pronator drift or satelliting. Upper and lower extremities equal bilaterally. -? Detailed strength exam as performed by the nurse/SIMONA and witnessed bythe physician: l R L SA 5 5 EE EF 5 5 WE WF Repairer Evaporator 5 5 HF KE KF 5 5 DF 5 5 PF -? Tone: is normal and bulk is normal -? Sensation- Intact to light touch bilaterally -? Coordination: No dysmetria on [id number]-[id number], finger follow finger or [id number]-viip. -? Gait- Gait initiation was normal. Narrow base with good heel strike and stride length was observed during ambulation. Turns were in stride. Patient was able to walk normally in tandem. Romberg was normal. PFSH Medical History Left carpal tunnel syndrome Bilateral knee pain Former smoker Obesity (BMI 30.0-34.9) Incisional hernia Hypokalemia Atypical chest pain Iron deficiency anemia Elevated PSA GERD (gastroesophageal reflux disease) Essential (primary) hypertension Lightheadedness SOB (shortness of breath) Osteoarthritis of left knee Left knee pain Arthritis Restless legs Migraine headache Chewing tobacco nicotine dependence Home Medications ?Medication ?Instructions ?Recorded ?Last Taken ?Type amlodipine 5 mg tablet 5 mg PO DAILY 30 days #30 ta bs 11/10/23 Unknown Rx aspirin 81 mg tablet,delayed 81 mg PO BREAKFAST 90 day s #90 tabs 11/10/23 Unknown Rx release atorvastatin 10 mg tablet 10 mg PO QHS 90 days #90 tab s 11/10/23 Unknown Rx metoprolol succinate 25 mg 25 mg PO DAILY 07/24/24 Unk nown History tablet,extended release 24 hr Allergy/AdvReac Type Severity Reaction Status Date / Time shellfish derived Allergy Anaphylaxis Verified 07/24/24 21:03 Family History Mother Heart disease Diabetes Hypertension Father Cancer Kidney disease Heart disease Surgical History Hx of appendectomy Hx of arthroscopy of shoulder Hx of inguinal hernia repair H/O hand surgery Social History household members: spouse Smoking Status: Unknown if ever smoked Smokeless tobacco user: chewing tobacco alcohol intake: never substance use type: does not use Vital Signs Vital Signs Vital Signs: 07/24/24 21:03 07/24/24 23:02 07/24/24 23:39 Temperature 97.5 F L 97.7 F L Temperature Source Temporal Pulse Rate 92 82 76 Pulse Strength Respiratory Rate 18 20 H 15 Blood Pressure 130/102 H 124/92 H 124/92 H Blood Pressure [Lying] Blood Pressure [Sitting (for 1 minute prior to obtaining)] Blood Pressure [Standing (for 1 minute prior to obtaining)] Blood Pressure Mean 111 102 102 Blood Pressure Mean [Lying] Blood Pressure Mean [Sitting (for 1 minute prior to obtaining)] Blood Pressure Mean [Standing (for 1 minute prior to obtaining)] Blood Pressure Source Blood Pressure Position Blood Pressure Location Pulse Ox 100 96 93 Oxygen Delivery Method Room Air 07/25/24 01:00 07/25/24 01:44 07/25/24 01:45 Temperature 97.7 F L Temperature Source Temporal Pulse Rate 76 63 Pulse Strength Respiratory Rate 19 H 12 Blood Pressure 131/94 H 127/86 H Blood Pressure [Lying] 119/92 H Blood Pressure [Sitting (for 1 minute prior to obtaining)] 121/98 H Blood Pressure [Standing (for 1 minute prior to obtaining)] 118/91 H Blood Pressure Mean 106 99 Blood Pressure Mean [Lying] 101 Blood Pressure Mean [Sitting (for 1 minute prior to obtaining)] 105 Blood Pressure Mean [Standing (for 1 minute prior to obtaining)] 100 Blood Pressure Source Monitor Blood Pressure Position Supine Blood Pressure Location Right Arm Pulse Ox 93 97 Oxygen Delivery Method Room Air 07/25/24 02:00 07/25/24 06:00 07/25/24 07:00 Temperature 97.7 F L 97.6 F L Temperature Source Temporal Temporal Pulse Rate 72 66 69 Pulse Strength Respiratory Rate 18 13 Blood Pressure 118/91 H 111/76 Blood Pressure [Lying] Blood Pressure [Sitting (for 1 minute prior to obtaining)] Blood Pressure [Standing (for 1 minute prior to obtaining)] Blood Pressure Mean 100 87 Blood Pressure Mean [Lying] Blood Pressure Mean [Sitting (for 1 minute prior to obtaining)] Blood Pressure Mean [Standing (for 1 minute prior to obtaining)] Blood Pressure Source Monitor Monitor Blood Pressure Position Semi-Fowlers Semi-Fowlers Blood Pressure Location Right Arm Right Arm Pulse Ox 97 97 Oxygen Delivery Method Room Air Room Air 07/25/24 07:22 07/25/24 10:00 07/25/24 11:13 Temperature 98.7 F Temperature Source Temporal Pulse Rate 63 Pulse Strength Normal (2+) Respiratory Rate 16 Blood Pressure 122/85 H Blood Pressure [Lying] Blood Pressure [Sitting (for 1 minute prior to obtaining)] Blood Pressure [Standing (for 1 minute prior to obtaining)] Blood Pressure Mean 97 Blood Pressure Mean [Lying] Blood Pressure Mean [Sitting (for 1 minute prior to obtaining)] Blood Pressure Mean [Standing (for 1 minute prior to obtaining)] Blood Pressure Source Monitor Blood Pressure Position Supine Blood Pressure Location Right Arm Pulse Ox 97 96 Oxygen Delivery Method Room Air Room Air 07/25/24 11:34 Temperature Temperature Source Pulse Rate 77 Pulse Strength Respiratory Rate Blood Pressure Blood Pressure [Lying] Blood Pressure [Sitting (for 1 minute prior to obtaining)] Blood Pressure [Standing (for 1 minute prior to obtaining)] Blood Pressure Mean Blood Pressure Mean [Lying] Blood Pressure Mean [Sitting (for 1 minute prior to obtaining)] Blood Pressure Mean [Standing (for 1 minute prior to obtaining)] Blood Pressure Source Blood Pressure Position Blood Pressure Location Pulse Ox Oxygen Delivery Method Weight Weight: 163.7 kg Body Mass Index (BMI) 58.2 EEG Results Procedure Details EEG Procedure Details: TEODORA GRIFFITH is a 59 year old M with a past medical history of , who presents for evaluation of Electroencephalogram on DATE at TIME Lab / Micro Data 07/25/24 04:20 07/25/24 04:20 Labs: Laboratory Results - last 24 hr 07/24/24 21:15: WBC 7.4, RBC 4.96, Hgb 15.2, Hct 42.9, MCV 86.5, MCH 30.6, MCHC 35.4, RDW Std Deviation 37.2, RDW Coeff of Jefferson 11.8, Plt Count 326, MPV 8.8, Immature Gran % (Auto) 0.700, Neut % (Auto) 75.1 H, Lymph % (Auto) 17.2 L, Colbert % (Auto) 5.5, Eos % (Auto) 1.1, Baso % (Auto) 0.4, Absolute Neuts (auto) 5.6, Absolute Lymphs (auto) 1.27, Nucleated RBC % 0, PT 14.3, INR 1.1, APTT 27.5, Sodium 139, Potassium 3.2 L, Chloride 105, Carbon Dioxide 19.1 L, Anion Gap 15, BUN 9, Creatinine 0.83, Estim Creat Clear Calc 86.48, Est GFR (MDRD) Non-Af 101,BUN/Creatinine Ratio 10.6, Glucose 157 H, Calcium 9.2, Magnesium 1.8, Troponin THigh Sens 7 07/24/24 23:36: Urine Color Yellow, Urine Clarity Clear, Urine pH 6.5, Ur Specific [place] 1.010, Urine Protein 15 H, Urine Glucose (UA) Normal, Urine Ketones Negative, Urine Occult Blood Negative, Urine Nitrite Negative, Urine Bilirubin Negative, Urine Urobilinogen Normal, Ur Leukocyte Esterase Negative, Urine RBC 0 SEEN, Urine WBC 0 SEEN, Ur Squamous Epith Cells 0 SEEN, Urine Bacteria 0 SEEN, Urine Mucus 0 SEEN 07/25/24 04:20: WBC 6.7, RBC 4.59 L, Hgb 14.1, Hct 40.4, MCV 88.0, MCH 30.7, MCHC 34.9, RDW Std Deviation 38.2, RDW Coeff of Jefferson 11.9, Plt Count 276, MPV 9.0, Immature Gran % (Auto) 0.300, Neut % (Auto) 66.1, Lymph % (Auto) 23.5, Colbert% (Auto) 7.4, Eos % (Auto) 2.1, Baso % (Auto) 0.6, Absolute Neuts(auto) 4.5, Absolute Lymphs (auto) 1.58, Nucleated RBC % 0, Sodium 139, Potassium 3.9, Chloride 109H, Carbon Dioxide 20.4 L, Anion Gap 10, BUN 8, Creatinine 0.66 L, Estim Creat Clear Calc 176.86, Est GFR (MDRD) Non-Af 108, BUN/Creatinine Ratio 11.4, Glucose 97, Hemoglobin A1c 5.6, Calcium 8.7, Total Bilirubin 0.99, AST 24,ALT 20, Alkaline Phosphatase 65, Troponin T High Sens 11 D, Total Protein 5.8 L, Albumin 3.7, Globulin 2.1 L, Albumin/Globulin Ratio 1.7, Triglycerides 62, Cholesterol 123, LDL Cholesterol, Calc 54, VLDL Cholesterol 12, HDL Cholesterol 57, Cholesterol/HDL Ratio 2.16, TSH 1.740 Imaging Radiology Impression Brain CT 07/24/24 21:43 IMPRESSION: No acute intracranial abnormality. Reading Location: [id number] Head/Neck CTA 07/24/24 21:43 IMPRESSION: No acute arterial abnormality of the head or neck. Reading Location: [id number] Chest X-Ray 07/24/24 22:10 IMPRESSION: No acute cardiopulmonary abnormality. Reading Location: [id number] Brain MRI 07/25/24 01:44 IMPRESSION: 1. Few foci of abnormal subcortical and periventricular white matter signal in the cerebral hemispheres. Nonspecific but consistent with chronic ischemic white matter disease. 2. Other findings as noted. Reading Location: [id number] Echocardiogram 07/25/24 01:44 Interpretation Summary The LV systolic function is normal. EF is 65 %. LV filling pattern indicates impaired relaxation. Bubble contrast study is negative for PFO/ASD. Mild diffuse aortic valve thickening. Ordering Physician: Ileana Minaya Referring Physician: Rehana Ceja Performed By: Kyalie Ramirez, RDCS, RVT Active Medications Active Medications Active Medications: Current Medications Generic Name Dose Route Start Last Admin Trade Name Freq PRN Reason Stop Dose Admin Acetaminophen 650 mg 07/25/24 01:44 07/25/24 02:13 Acetaminophen 325 Mg Tablet PO 650 mg Q4H PRN PRN Administration Fever, pain 1-10/10 Al Hydroxide/Mg Hydroxide 30 ml 07/25/24 01:44 Mag Hydrox/Al Hydrox/Simeth 30 Ml Udc PO Q6H PRN PRN Gastric Burning Albuterol Sulfate 2.5 mg 07/25/24 01:44 Albuterol 2.5 Mg/3 Ml Vial.Neb. INHALATION Q2H PRN PRN Dyspnea, wheezing Aspirin 81 mg 07/25/24 08:00 07/25/24 11:07 Aspirin E.C. 81 Mg Tablet PO 81 mg BREAKFAST JAMIE Administration Atorvastatin Calcium 10 mg 07/25/24 22:00 Atorvastatin Calcium 10 Mg Tablet PO QHS JAMIE Enoxaparin Sodium 40 mg 07/25/24 10:00 07/25/24 11:06 Enoxaparin 40 Mg/0.4 Ml Syringe SC 40 mg DAILY JAMIE Administration Guaifenesin 20 ml 07/25/24 01:44 Guaifenesin 10 Ml Udc (200mg/10ml) PO Q4H PRN PRN COUGH Hydralazine HCl 5 mg 07/25/24 01:44 Hydralazine 20 Mg/Ml Vial IV 07/26/24 01:44 Q30M PRN maintain BP parameters with HR <60 Sodium Chloride 250 mls @ 15 mls/hr 07/25/24 02:26 IV .[id number] PRN Saline Flush Sodium Chloride 250 mls @ 15 mls/hr 07/25/24 02:26 IV .[id number] PRN Additional IVPB Infusion Labetalol HCl 10 - 20 mg 07/25/24 01:44 Labetalol 20 Mg/4 Ml Vial IV 07/26/24 01:44 Q10M PRN PRN maintain BP parameters with HR >/=60 Melatonin 3 mg 07/25/24 01:44 Melatonin 3 Mg Tablet PO QHS PRN PRN INSOMNIA Nicotine Polacrilex 2 mg 07/25/24 01:44 Nicotine Polacrilex 2 Mg Gum PO Q2H PRN PRN Nicotine Craving Ondansetron HCl 4 mg 07/25/24 01:44 Ondansetron 4 Mg/2 Ml Vial IV Q8H PRN PRN NAUSEA/VOMITING Prochlorperazine Edisylate 5 mg 07/25/24 01:44 Prochlorperazine 10 Mg/2 Ml Vial IV Q4H PRN PRN Breakthrough Nausea/Vomiting Senna/Docusate Sodium 2 tablet 07/25/24 01:44 Senna/Docusate Sodium 1 Tablet PO BID PRN PRN Constipation Sodium Chloride 10 - 40 ml 07/25/24 02:26 0.9% Saline Lock 10 Ml Syringe IV UD PRN SALINE FLUSH NIHSS NIHSS Nursing Documentation NIHSS Nursing Documentation: NIHSS: Ischemic Stroke/TIA Start: 07/25/24 01:44 Text: For PCU Patients: NIH and Neuro Check every 4 Status: Active hours, PRN and with change in RN caregiver. Freq: [id number] Protocol: Activity Type Activity Date Activity User E-sign Co-sign Detail Recorded Client Recorded Date Recorded By Document 07/25/24 11:16 CD [id number] 07/25/24 11:17 CD 07/25/24 11:16 NIH Stroke Scale [NIHSS] A score of 0 is normal or asymptomatic . Total possible score is 42. Inpatient: RN or Physician to activate a stroke alert for onset of new stroke symptoms or with NIHSS increase >/= 3 points. Following change in neurological status, NIHSS will be performed per physician order or more frequently PRN. -1a. Level of Consciousness 0 - Alert; keenly responsive -1b. LOC Questions 0 - Answers BOTH questions correctly -1c. LOC Commands 0 - Performs BOTH tasks correctly -2. Best Gaze 0 - Normal -3. Visual 0 - No visual loss -4. Facial Palsy 0 - Normal symmetrical movements -5a. Left Arm 0 - No drift; arm holds 90 ( or 45) degrees for full 10 seconds -5b. Right Arm 0 - No drift; arm holds 90 ( or 45) degrees for full 10 seconds -6a. Left Leg 0 - No drift; leg holds 30- degree position for full 5 seconds -6b. Right Leg 0 - No drift; leg holds 30- degree position for full 5 seconds -7. Limb Ataxia 0 - Absent -8. Sensory 1 - Mild-to- moderate sensory loss; -9. Best Language 0 - No aphasia; normal -10. Dysarthria 0 - Normal -11. Extinction and Inattention 0 - No abnormality -Total 1 Query Text:A score of 0 is normal or asymptomatic. Total possible score is 42 . ED: Notify Physician for NIHSS increase by > / = 3 points. Inpatient: RN or Physician to activate a stroke alert for NIHSS increase of > / = 3 points. 07/25/24 8284 Cosigner Signature (if applicable): CC: PHARMACOGENETICISTLacy Ceja~ Signed [facility]06-04-2025 Progress note Author Olivier Aleman [facility] Note Date/Time July 25, 2024 2:48p m [facility] Medical Records Department [address] [place] [address] Progress Note - Hospitalist 07/25/24 0706 MR#: [id number] Acct: [id number] Name: TEODORA GRIFFITHN Rep #:[id number] : 1965 59 From: Olivier Aleman DO PCP: Rehana Ceja PHARMACOGENETICIST-C Status:ADM I NO Location: ICU CVICU20 4-1 Reason for Visit Reason for Visit: Diagnoses Transient cerebral ischemic attack, unspecified (07/24/24) Subjective Subjective Feels well. Had no prodrome, but awoke and had sided paresthesias. Objective Data Objective Data Vital Signs: Vital Signs Temp Pulse Resp BP Pulse Ox O2 Del Method 36.4 C L 66 13 111/76 97 Room Air 07/25/24 06:00 07/25/24 06:00 07/25/24 06:00 07/25/24 06:00 07/25/24 06:00 07/25/24 06:00 Oxygen Delivery Method Room Air Weight: 163.7 kg Body Mass Index (BMI) 58.2 Intake & Output: Intake and Output for Last 24 Hours 07/23/24 07/24/24 07/25/24 23:59 23:59 23:59 Intake Total 1000 / 1000 Balance 1000 / 1000 Lab / Micro Data 07/25/24 04:20 07/25/24 04:20 Labs: Laboratory Results - last 24 hr 07/24/24 21:15: WBC 7.4, RBC 4.96, Hgb 15.2, Hct 42.9, MCV 86.5, MCH 30.6, MCHC 35.4, RDW Std Deviation 37.2, RDW Coeff of Jefferson 11.8, Plt Count 326, MPV 8.8, Immature Gran % (Auto) 0.700, Neut % (Auto) 75.1 H, Lymph % (Auto) 17.2 L, Colbert % (Auto) 5.5, Eos % (Auto) 1.1, Baso % (Auto) 0.4, Absolute Neuts (auto) 5.6, Absolute Lymphs (auto) 1.27, Nucleated RBC % 0, PT 14.3, INR 1.1, APTT 27.5, Sodium 139, Potassium 3.2 L, Chloride 105, Carbon Dioxide 19.1 L, Anion Gap 15, BUN 9, Creatinine 0.83, Estim Creat Clear Calc 86.48, Est GFR (MDRD) Non-Af 101,BUN/Creatinine Ratio 10.6, Glucose 157 H, Calcium 9.2, Magnesium 1.8, Troponin THigh Sens 7 07/24/24 23:36: Urine Color Yellow, Urine Clarity Clear, Urine pH 6.5, Ur Specific [place] 1.010, Urine Protein 15 H, Urine Glucose (UA) Normal, Urine Ketones Negative, Urine Occult Blood Negative, Urine Nitrite Negative, Urine Bilirubin Negative, Urine Urobilinogen Normal, Ur Leukocyte Esterase Negative, Urine RBC 0 SEEN, Urine WBC 0 SEEN, Ur Squamous Epith Cells 0 SEEN, Urine Bacteria 0 SEEN, Urine Mucus 0 SEEN 07/25/24 04:20: WBC 6.7, RBC 4.59 L, Hgb 14.1, Hct 40.4, MCV 88.0, MCH 30.7, MCHC 34.9, RDW Std Deviation 38.2, RDW Coeff of Jefferson 11.9, Plt Count 276, MPV 9.0, Immature Gran % (Auto) 0.300, Neut % (Auto) 66.1, Lymph % (Auto) 23.5, Colbert% (Auto) 7.4, Eos % (Auto) 2.1, Baso % (Auto) 0.6, Absolute Neuts (auto) 4.5, Absolute Lymphs (auto) 1.58, Nucleated RBC % 0, Sodium 139, Potassium 3.9, Chloride 109 H, Carbon Dioxide 20.4 L, Anion Gap 10, BUN 8, Creatinine 0.66 L, Estim Creat Clear Calc 176.86, Est GFR (MDRD) Non-Af 108, BUN/Creatinine Ratio 11.4, Glucose 97, Calcium 8.7, Total Bilirubin 0.99, AST 24, ALT 20, Alkaline Phosphatase 65, Total Protein 5.8 L, Albumin 3.7, Globulin 2.1 L, Albumin/Globulin Ratio 1.7, Triglycerides 62, Cholesterol 123, LDL Cholesterol, Calc 54, VLDL Cholesterol 12, HDL Cholesterol 57, Cholesterol/HDL Ratio 2.16, TSH 1.740 Radiography Diagnostic Testing: Radiology Impression Brain CT 07/24/24 21:43 IMPRESSION: No acute intracranial abnormality. Reading Location: [id number] Head/Neck CTA 07/24/24 21:43 IMPRESSION: No acute arterial abnormality of the head or neck. Reading Location: [id number] Chest X-Ray 07/24/24 22:10 IMPRESSION: No acute cardiopulmonary abnormality. Reading Location: [id number] Physical Exam Const alert and no apparent distress HEENT head/scalp atraumatic Resp normal respiratory effort and no retractions Extremity normal to inspection Neuro Sensorium / Orientation: awake and alert Psych affect normal Assessment & Plan Assessment/Plan (1) Amnesia: PLAN: etiology: TIA/CVA v seizure v syncope MRI brain showed few foci of abnormal subcortical and periventricular white matter signal in the cerebral hemispheres. Orthostatic vitals negative Echo shows an EF 65%. No PFO/ASD EEG pending Neuro consult PLAN: Plan VTE prophylaxis: LMWH. Charges/Coding Visit Charges Inpatient E&M: 19506 Subs Hosp L2 NIHSS NIHSS Nursing Documentation NIHSS Nursing Documentation: NIHSS: Ischemic Stroke/TIA Start: 07/25/24 01:44 Text: For PCU Patients: NIH and Neuro Check every 4 Status: Active hours, PRN and with change in RN caregiver. Freq: [id number] Protocol: Activity Type Activity Date Activity User E-sign Co-sign Detail Recorded Client Recorded Date Recorded By Document 07/25/24 06:00 [facility] [place] [id number] 07/25/24 06:28 CAMACHO 07/25/24 06:00 NIH Stroke Scale [NIHSS] A score of 0 is normal or asymptomatic . Total possible score is 42. Inpatient: RN or Physician to activate a stroke alert for onset of new stroke symptoms or with NIHSS increase >/= 3 points. Following change in neurological status, NIHSS will be performed per physician order or more frequently PRN. -1a. Level of Consciousness 0 - Alert; keenly responsive -1b. LOC Questions 0 - Answers BOTH questions correctly -1c. LOC Commands 0 - Performs BOTH tasks correctly -2. Best Gaze 0 - Normal -3. Visual 0 - No visual loss -4. Facial Palsy 0 - Normal symmetrical movements -5a. Left Arm 0 - No drift; arm holds 90 ( or 45) degrees for full 10 seconds -5b. Right Arm 0 - No drift; arm holds 90 ( or 45) degrees for full 10 seconds -6a. Left Leg 0 - No drift; leg holds 30- degree position for full 5 seconds -6b. Right Leg 0 - No drift; leg holds 30- degree position for full 5 seconds -7. Limb Ataxia 0 - Absent -8. Sensory 0 - Normal; no sensory loss -9. Best Language 0 - No aphasia; normal -10. Dysarthria 0 - Normal -11. Extinction and Inattention 0 - No abnormality -Total 0 Query Text:A score of 0 is normal or asymptomatic. Total possible score is 42 . ED: Notify Physician for NIHSS increase by > / = 3 points. Inpatient: RN or Physician to activate a stroke alert for NIHSS increase of > / = 3 points. 07/25/24 1448 <Electronically signed by Olivier Aleman DO> Cosigner Signature (if applicable): CC: ~ Signed [facility] Work Phone: 1(576) 988-885106-04-2025 Progress note [facility] Medical Records Department [address] [place] [address] Progress Note - Hospitalist 07/25/24705 MR#: [id number] Acct: [id number] Name: TEODORA GRIFFITH Rep #:[id number] : 1965 59 From: Olivier Aleman DO PCP: BIPIN [place] Status:ADM I NO Location: ICU CVICU 4-1 Reason for Visit Reason for Visit: Diagnoses Transient cerebral ischemic attack, unspecified (07/24/24) Subjective Subjective Feels well. Had no prodrome, but awoke and had sided paresthesias. Objective Data Objective Data Vital Signs: Vital Signs Temp Pulse Resp BP Pulse Ox O2 Del Method 36.4 C L 66 13 111/76 97 Room Air 07/25/24 06:00 07/25/24 06:00 07/25/24 06:00 07/25/24 06:00 07/25/24 06:00 07/25/24 06:00 Oxygen Delivery Method Room Air Weight: 163.7 kg Body Mass Index (BMI) 58.2 Intake & Output: Intake and Output for Last 24 Hours 07/23/24 07/24/24 07/25/24 23:59 23:59 23:59 Intake Total 1000 / 1000 Balance 1000 / 1000 Lab / Micro Data 07/25/24 04:20 07/25/24 04:20 Labs: Laboratory Results - last 24 hr 07/24/24 21:15: WBC 7.4, RBC 4.96, Hgb 15.2, Hct 42.9, MCV 86.5, MCH 30.6, MCHC 35.4, RDW Std Deviation 37.2, RDW Coeff of Jefferson 11.8, Plt Count 326, MPV 8.8, Immature Gran % (Auto) 0.700, Neut % (Auto) 75.1 H, Lymph % (Auto) 17.2 L, Colbert % (Auto) 5.5, Eos % (Auto) 1.1, Baso % (Auto) 0.4, Absolute Neuts (auto) 5.6, Absolute Lymphs (auto) 1.27, Nucleated RBC % 0, PT 14.3, INR 1.1, APTT 27.5, Sodium 139, Potassium 3.2 L, Chloride 105, Carbon Dioxide 19.1 L, Anion Gap 15, BUN 9, Creatinine 0.83, Estim Creat Clear Calc 86.48, Est GFR (MDRD) Non-Af 101,BUN/Creatinine Ratio 10.6, Glucose 157 H, Calcium 9.2, Magnesium 1.8, Troponin THigh Sens 7 07/24/24 23:36: Urine Color Yellow, Urine Clarity Clear, Urine pH 6.5, Ur Specific [place] 1.010, Urine Protein 15 H, Urine Glucose (UA) Normal, Urine Ketones Negative, Urine Occult Blood Negative, Urine Nitrite Negative, Urine Bilirubin Negative, Urine Urobilinogen Normal, Ur Leukocyte Esterase Negative, Urine RBC 0 SEEN, Urine WBC 0 SEEN, Ur Squamous Epith Cells 0 SEEN, Urine Bacteria 0 SEEN, Urine Mucus 0 SEEN 07/25/24 04:20: WBC 6.7, RBC 4.59 L, Hgb 14.1, Hct 40.4, MCV 88.0, MCH 30.7, MCHC 34.9, RDW Std Deviation 38.2, RDW Coeff of Jefferson 11.9, Plt Count 276, MPV 9.0, Immature Gran % (Auto) 0.300, Neut % (Auto) 66.1, Lymph % (Auto) 23.5, Colbert% (Auto) 7.4, Eos % (Auto) 2.1, Baso % (Auto) 0.6, Absolute Neuts(auto) 4.5, Absolute Lymphs (auto) 1.58, Nucleated RBC % 0, Sodium 139, Potassium 3.9, Chloride 109H, Carbon Dioxide 20.4 L, Anion Gap 10, BUN 8, Creatinine 0.66 L, Estim Creat Clear Calc 176.86, Est GFR (MDRD) Non-Af 108, BUN/Creatinine Ratio 11.4, Glucose 97, Calcium 8.7, Total Bilirubin 0.99, AST 24, ALT 20, Alkaline Phosphatase 65, Total Protein 5.8 L, Albumin 3.7, Globulin 2.1 L, Albumin/Maggi bulin Ratio 1.7, Triglycerides 62, Cholesterol 123, LDL Cholesterol, Calc 54, VLDL Cholesterol 12, HDL Cholesterol 57, Cholesterol/HDL Ratio 2.16, TSH 1.740 Radiography Diagnostic Testing: Radiology Impression Brain CT 07/24/24 21:43 IMPRESSION: No acute intracranial abnormality. Reading Location: [id number] Head/Neck CTA 07/24/24 21:43 IMPRESSION: No acute arterial abnormality of the head or neck. Reading Location: [id number] Chest X-Ray 07/24/24 22:10 IMPRESSION: No acute cardiopulmonary abnormality. Reading Location: [id number] Physical Exam Const alert and no apparent distress HEENT head/scalp atraumatic Resp normal respiratory effort and no retractions Extremity normal to inspection Neuro Sensorium / Orientation: awake and alert Psych affect normal Assessment & Plan Assessment/Plan (1) Amnesia: PLAN: etiology: TIA/CVA v seizure v syncope MRI brain showed few foci of abnormal subcortical and periventricular white matter signal in the cerebral hemispheres. Orthostatic vitals negative Echo shows an EF 65%. No PFO/ASD EEG pending Neuro consult PLAN: Plan VTE prophylaxis: LMWH. Charges/Coding Visit Charges Inpatient E&M: 43489 Subs Hosp L2 NIHSS NIHSS Nursing Documentation NIHSS Nursing Documentation: NIHSS: Ischemic Stroke/TIA Start: 07/25/24 01:44 Text: For PCU Patients: NIH and Neuro Check every 4 Status: Active hours, PRN and with change in RN caregiver. Freq: [id number] Protocol: Activity Type Activity Date Activity User E-sign Co-sign Detail Recorded Client Recorded Date Recorded By Document 07/25/24 06:00 [facility] [place] [id number] 07/25/24 06:28 [facility] [place] 07/25/24 06:00 NIH Stroke Scale [NIHSS] A score of 0 is normal or asymptomatic . Total possible score is 42. Inpatient: RN or Physician to activate a stroke alert for onset of new stroke symptoms or with NIHSS increase >/= 3 points. Following change in neurological status, NIHSS will be performed per physician order or more frequently PRN. -1a. Level of Consciousness 0 - Alert; keenly responsive -1b. LOC Questions 0 - Answers BOTH questions correctly -1c. LOC Commands 0 - Performs BOTH tasks correctly -2. Best Gaze 0 - Normal -3. Visual 0 - No visual loss -4. Facial Palsy 0 - Normal symmetrical movements -5a. Left Arm 0 - No drift; arm holds 90 ( or 45) degrees for full 10 seconds -5b. Right Arm 0 - No drift; arm holds 90 ( or 45) degrees for full 10 seconds -6a. Left Leg 0 - No drift; leg holds 30- degree position for full 5 seconds -6b. Right Leg 0 - No drift; leg holds 30- degree position for full 5 seconds -7. Limb Ataxia 0 - Absent -8. Sensory 0 - Normal; no sensory loss -9. Best Language 0 - No aphasia; normal -10. Dysarthria 0 - Normal -11. Extinction and Inattention 0 - No abnormality -Total 0 Query Text:A score of 0 is normal or asymptomatic. Total possible score is 42 . ED: Notify Physician for NIHSS increase by > / = 3 points. Inpatient: RN or Physician to activate a stroke alert for NIHSS increase of > / = 3 points. 07/25/24 1448 Cosigner Signature (if applicable): CC: ~ Signed [facility]06-04-2025 History and physical note Author Ileana Minaya [facility] Note Date/Time July 24, 2024 11:50 pm [facility] Medical Records Department [address] [place] [address] H&P Exam - Hospitalist 07/24/24 5897 MR#: [id number] Acct: [id number] Name: TEODORA GRIFFITH Rep #:[id number] : 1965 59 From: Ileana Minaya MD PCP: Rehana Ceja, PHARMACOGENETICIST-C Status:ADM I NO Location: ICU CVICU20 4-1 HPI - General General Date of Admission: 07/24/24 Date of Service: 07/24/24 Chief Complaint: Transient confusion. HPI Narrative The patient is a 59 y/o M w/ PMHx: Chew tobacco use, Chronic anemia/Fe deficiency anemia, GERD, HTN, HLD, RLS, Migraine headaches who presents to the [facility] ED with history at approximately 7 PM of complete amnesia lasting 15-30 seconds with complete resolution following however he alsonotes that he had mild dizziness on Tuesday which required him to lay down to avoid passing out prompting PCP evaluation who arrange outpatient evaluation. Patient had similar episode of confusion that was very short-lived on 07/14/2024 with memory resolution completely following. He does state some discomfort to the left shoulder and does have some mild altered sensation to the left shoulderfocally as well as occasionally his left cheek. Currently he notes complete resolution of all symptoms. He currently denies any lightheadedness or dizziness. Workup in the ED included T97.5, heart 92, BP 130/102, respiratory rate 18, 100 % room air, CBC with WBC 7.4, he 1 15.2, platelet 326 without marked shift, unremarkable coags, BMP with potassium 3.2, carbon oxide 19.1, glucose 157, troponin 7, CT of the brain with no acute intracranial findings, CTA head and neck with no acute abnormalities, chest x-ray with no acute cardiopulmonary findings, EKG with SR without evidence of acute ischemia. In theED patient ministered 1 L normal saline and potassium 40 mg p.o. x 1. UA pendingupon evaluation. PFSH Medical History Left carpal tunnel syndrome Bilateral knee pain Former smoker Obesity (BMI 30.0-34.9) Incisional hernia Hypokalemia Atypical chest pain Iron deficiency anemia Elevated PSA GERD (gastroesophageal reflux disease) Essential (primary) hypertension Lightheadedness SOB (shortness of breath) Osteoarthritis of left knee Left knee pain Arthritis Restless legs Migraine headache Chewing tobacco nicotine dependence Home Medications ?Medication ?Instructions ?Recorded ?Last Taken ?Type amlodipine 5 mg tablet 5 mg PO DAILY 30 days #30 ta bs 11/10/23 Unknown Rx aspirin 81 mg tablet,delayed 81 mg PO BREAKFAST 90 day s #90 tabs 11/10/23 Unknown Rx release atorvastatin 10 mg tablet 10 mg PO QHS 90 days #90 tab s 11/10/23 Unknown Rx metoprolol succinate 25 mg 25 mg PO DAILY 07/24/24 Unk nown History tablet,extended release 24 hr Allergy/AdvReac Type Severity Reaction Status Date / Time shellfish derived Allergy Anaphylaxis Verified 07/24/24 21:03 Family History Mother Heart disease Diabetes Hypertension Father Cancer Kidney disease Heart disease Surgical History Hx of appendectomy Hx of arthroscopy of shoulder Hx of inguinal hernia repair H/O hand surgery Social History household members: spouse Smokeless tobacco user: chewing tobacco alcohol intake: never substance use type: does not use ROS ROS Narrative Admission Review of Systems: CONSTITUTIONAL: No weight loss, fever, chills, + weakness or fatigue. HEENT: + Transient facial and left upper extremity paresthesias. Eyes: No visual loss, blurred vision, double vision or yellow sclerae. Ears, Nose, Throat: No hearing loss, sneezing, congestion, runny nose or sore throat. SKIN: No rash or itching, lesions, wounds. CARDIOVASCULAR: + Episode of lightheadedness/dizziness with near syncopal sensation. No chest pain, chest pressure or chest discomfort, palpitations, edema, orthopnea. RESPIRATORY: No shortness of breath, cough or sputum, wheezing, hemoptysis. GASTROINTESTINAL: No anorexia, nausea, vomiting or diarrhea, abdominal pain, melena, BRBPR. GENITOURINARY: No dysuria, frequency, urgency or retention. NEUROLOGICAL: + Transient episodes of amnesia, left upper extremity specificallyshoulder and occasional facial paresthesias no headache, dizziness, syncope, paralysis, ataxia, focal weakness, change in bowel or bladder control, seizure. MUSCULOSKELETAL: + muscle, back pain, joint pain or stiffness. HEMATOLOGIC: No anemia, bleeding or bruising. LYMPHATICS: No enlarged nodes. No history of splenectomy. PSYCHIATRIC: No history of depression or anxiety. ENDOCRINOLOGIC: No reports of sweating, cold or heat intolerance. No polyuria orpolydipsia. ALLERGIES: + History of shellfish anaphylaxis. Vital Signs Vital Signs Vital Signs: 07/24/24 21:03 07/24/24 23:02 Temperature 97.5 F L Temperature Source Temporal Pulse Rate 92 82 Respiratory Rate 18 20 H Blood Pressure 130/102 H 124/92 H Blood Pressure Mean 111 102 Pulse Ox 100 96 Oxygen Delivery Method Room Air Weight Weight: 166 lb 10.711 oz Body Mass Index (BMI) 26.9 Physical Exam Narrative Physical Examination: General: Awake, alert, oriented x 3 and cooperative, seated upright in the ED bed, currently and himself note that he is at his neurological baseline. Skin: Normal color, normal turgor, no icterus, no cyanosis except occasional stage ecchymoses, abrasion. HEENT: AT/NC, EOMI, PERRLA, MMM, no carotid bruits or JVD noted. Lungs: CTA bilaterally, moderate effort, mild decrease BL bases, no rales, ronchi or wheezing. Heart: Regular rate and rhythm; no gallop, rub audible. Abdomen: Soft, NTTP, ND, normal BS, no appreciated HSM. 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 Neurological: Patient awake, alert, oriented as noted, cognitive function intact; pupils equally reactive to light and accommodation, cranial nerves grossly normal, moving all 4 extremities, no focal deficits, strength preserved,finger-nose and [id number] appropriate, equivocal Babinski, sensation intact. Psychiatric: Affect appears fatigued otherwise normal, no acute evidence of depressive or anxiety feelings. Results Lab / Micro Data 07/24/24 21:15 07/24/24 21:15 Labs: Laboratory Results - last 24 hr 07/24/24 21:15: WBC 7.4, RBC 4.96, Hgb 15.2, Hct 42.9, MCV 86.5, MCH 30.6, MCHC 35.4, RDW Std Deviation 37.2, RDW Coeff of Jefferson 11.8, Plt Count 326, MPV 8.8, Immature Gran % (Auto) 0.700, Neut % (Auto) 75.1 H, Lymph % (Auto) 17.2 L, Colbert % (Auto) 5.5, Eos % (Auto) 1.1, Baso % (Auto) 0.4, Absolute Neuts (auto) 5.6, Absolute Lymphs (auto) 1.27, Nucleated RBC % 0, PT 14.3, INR 1.1, APTT 27.5, Sodium 139, Potassium 3.2 L, Chloride 105, Carbon Dioxide 19.1 L, Anion Gap 15, BUN 9, Creatinine 0.83, Estim Creat Clear Calc 86.48, Est GFR (MDRD) Non-Af 101,BUN/Creatinine Ratio 10.6, Glucose 157 H, Calcium 9.2, Troponin T High Sens 7 Imaging Radiology Impression Brain CT 07/24/24 21:43 IMPRESSION: No acute intracranial abnormality. Reading Location: [id number] Head/Neck CTA 07/24/24 21:43 IMPRESSION: No acute arterial abnormality of the head or neck. Reading Location: [id number] Chest X-Ray 07/24/24 22:10 IMPRESSION: No acute cardiopulmonary abnormality. Reading Location: [id number] Assessment & Plan Assessment/Plan (1) TIA (transient ischemic attack): PLAN: Plan The patient is a 59 y/o M w/ PMHx: Chew tobacco use, Chronic anemia/Fe deficiency anemia, GERD, HTN, HLD, RLS, Migraine headaches who presents to the [facility] ED with history at approximately 7 PM of complete amnesia lasting 15-30 seconds with complete resolution following however he alsonotes that he had mild dizziness on Tuesday which required him to lay down to avoid passing out prompting PCP evaluation who arrange outpatient evaluation. #1. Transient episode of global amnesia, resolved, concurrently noted also recent near syncopal event of unclear etiology in addition to transient intermittent left shoulder paresthesias: Will admit to PCU, will obtain MRI Brain, ECHO, PT/OT/Speech/Nutrition evaluation per protocol. Will allow permissive HTN to be cautious, maintain on asa, add statin w/ AM FLP, fall precautions. Mag, TSH, FLP, HgbA1c requested. Maintain on fall and aspiration precautions. Orthostatics requested. Will continue to cycle cardiac enzymes. #2. Hypokalemia: Admission K+ 3.2, magnesium pending, supplementation given, repeat level in AM. #3. Chronic anemia/iron deficiency anemia: Admission hemoglobin 15.2, MCV 86.5,baseline hemoglobin noted previously similar/normal range, not on any chronic iron supplementation currently noted, clarified to be certain, trend CBC. #4. Chew tobacco usage: Encourage cessation, nicotine gum as needed. #5. Hypertension: Given #1 evaluation will maintain permissive hypertension with as needed agents per stroke protocol pending MRI. #6. GERD: Per current was not a regimen, will have as needed Mylanta. #7. Restless leg syndrome: Per current list on a regimen, if necessary may add Requip. #8. Hyperlipidemia: Continue home statin regimen. AM FLP. #9. DVT prophylaxis: Lovenox. Charges/Coding Visit Charges Inpatient E&M: 00011 Init Hosp L2 07/24/24 2350 <Electronically signed by Ileana Minaya MD> Cosigner Signature (if applicable): CC: BIPIN Ceja; Dr. Ileana Minaya MD~ Signed [facility] Work Phone: [phone]) 502-770206-04-2025 Discharge summary Author Geronimo Morales [facility] Note Date/Time July 24, 2024 11:35 pm [facility] Medical Records Department [address] [place] [address] Emergency Department Summary 07/24/24 MR#: [id number] Acct: [id number] Name: TEODORA GRIFFITH Rep #:[id number] : 1965 59 From: Geronimo Weaver ggett DO PCP: BIPIN Clinton Status:REG E R Location: ED HPI History of Present Illness Chief Complaint: Neuro S/Sx Narrative Narrative: Chief complaint and HPI: Concern for recurrent TIAs. 59-year-old male with pastmedical history of HTN, HLD presents for evaluation for concern of TIAs. History taken by patient as well as significant other. Significant other stateson 07/14 she came home and found the patient lying in the grass. At that time, he could not remember what he was doing or what he had done earlier in the day. It lasted several minutes but then resolved and patient's memory returned. He was lightheaded at that time. Patient followed up with his PCP regarding this and scheduled further testing for evaluation of possible TIA. Told the patient to present to the ED if this reoccurs. Patient states that 6 PM today he had anepisode of 30 seconds where he had total memory loss. Associated symptom at that time was some pain in his left upper extremity. He now endorses some slight loss of sensation only in his shoulder on the left. found out and brought the patient for evaluation. Patient currently denies any fever, chills,headache, shortness of breath, chest pain abdominal pain, nausea, vomiting. Denies any aphasia, dysarthria, weakness. Review of systems: See HPI Medications: As listed on the chart Allergies: As listed on the chart PFSH: Per chart Vital signs: As listed on the chart. Reviewed. Physical exam: Gen: A&O x3, NAD Head: Normocephalic, atraumatic Eyes: No sclera icterus, conjunctiva clear, PERRL, EOMI ENT: Moist mucous membranes, No facial asymmetry Neck: Trachea midline, No JVD CV: RRR, no murmurs, no peripheral edema Resp: Lungs CTA BL, no w/r/c GI: Abd soft, non-distended, non-tender, no r/r/g Musc: Full ROM, no deformity, strength +5/5 in all extremities, no pronator drift, no ataxia Skin: Warm, dry, intact Neuro: Alert, oriented, grossly intact, sensation intact other than endorses dull sensation to the left shoulder only compared to the right, no aphasia, no dysarthria Psych: Cooperative, appropriate mood and affect PFS PFSH Medical History Left carpal tunnel syndrome Bilateral knee pain Former smoker Obesity (BMI 30.0-34.9) Incisional hernia Hypokalemia Atypical chest pain Iron deficiency anemia Elevated PSA GERD (gastroesophageal reflux disease) Essential (primary) hypertension Lightheadedness SOB (shortness of breath) Osteoarthritis of left knee Left knee pain Arthritis Restless legs Migraine headache Chewing tobacco nicotine dependence Home Medications ?Medication ?Instructions ?Recorded ?Last Taken ?Type amlodipine 5 mg tablet 5 mg PO DAILY 30 days #30 ta bs 11/10/23 Unknown Rx aspirin 81 mg tablet,delayed 81 mg PO BREAKFAST 90 day s #90 tabs 11/10/23 Unknown Rx release atorvastatin 10 mg tablet 10 mg PO QHS 90 days #90 tab s 11/10/23 Unknown Rx metoprolol succinate 25 mg 25 mg PO DAILY 07/24/24 Unk nown History tablet,extended release 24 hr Allergy/AdvReac Type Severity Reaction Status Date / Time shellfish derived Allergy Anaphylaxis Verified 07/24/24 21:03 Family History Mother Heart disease Diabetes Hypertension Father Cancer Kidney disease Heart disease Surgical History Hx of appendectomy Hx of arthroscopy of shoulder Hx of inguinal hernia repair H/O hand surgery Social History household members: spouse Smoking Status: Current every day smoker tobacco type: smokeless tobacco alcohol intake: never substance use type: does not use EXAM Physical Exam Const Vital Signs: 07/24/24 21:03 07/24/24 23:02 Temperature 97.5 F L Temperature Source Temporal Pulse Rate 92 82 Respiratory Rate 18 20 H Blood Pressure 130/102 H 124/92 H Blood Pressure Mean 111 102 Pulse Ox 100 96 Oxygen Delivery Method Room Air MDM MDM MDM Narrative Medical decision making narrative: 59-year-old male with past medical history of HTN, HLD presents for evaluation for concern of TIAs. Patient has had 2 episodes of memory loss including today and on 07/14. Memory loss has resolved currently. Only deficit is duller sensation of the left shoulder compared to the right. Last known normal 6 PM. Patient outside the CVA window. Low suspicion for LVO given symptoms and physical exam. Differential diagnosis includes but is not limited to TIA, CVA, electrolyte abnormality, dehydration, UTI. NS bolus ordered. Laboratory workupordered including CT head and CTA head and neck. CBC without leukocytosis or anemia. Coagulation panel unremarkable. BMP shows hyponatremia of 3.2, this iswith hemolysis. P.o. potassium ordered. Will add on magnesium. Troponin unremarkable. CT of the head shows no acute intracranial abnormality. CTA of the head and neck shows no acute arterial abnormality. UA pending at this time. Patient will warrant admission for TIA/CVA workup although cannot rule out short episodes of total global amnesia. Patient and updated all results and confirmed understand the plan. Patient was discussed with hospitalist who accepted admission. EKG: Interpreted by me/EM physician: EKG shows normal sinus rhythm without any acute ischemic changes. Heart rate 80 Diagnostic: Interpreted by me/EM physician: Chest x-ray without pneumonia, effusion, cardiomegaly, pneumothorax. Radiology in agreement. Impression: 1. Multiple episodes of memory loss 2. Concern for TIA/CVA versus episodes of total global amnesia 3. Hypokalemia Lab Data Labs: Laboratory Results - last 24 hr 07/24/24 21:15 WBC 7.4 RBC 4.96 Hgb 15.2 Hct 42.9 MCV 86.5 MCH 30.6 MCHC 35.4 RDW Std Deviation 37.2 RDW Coeff of Jefferson 11.8 Plt Count 326 MPV 8.8 Immature Gran % (Auto) 0.700 Neut % (Auto) 75.1 H Lymph % (Auto) 17.2 L Colbert % (Auto) 5.5 Eos % (Auto) 1.1 Baso % (Auto) 0.4 Absolute Neuts (auto) 5.6 Absolute Lymphs (auto) 1.27 Nucleated RBC % 0 PT 14.3 INR 1.1 APTT 27.5 Sodium 139 Potassium 3.2 L Chloride 105 Carbon Dioxide 19.1 L Anion Gap 15 BUN 9 Creatinine 0.83 Estim Creat Clear Calc 86.48 Est GFR (MDRD) Non-Af 101 BUN/Creatinine Ratio 10.6 Glucose 157 H Calcium 9.2 Troponin T High Sens 7 Radiography Diagnostic Testing: Clinical Impression(s) from Imaging Studies Brain CT 07/24/24 21:43 IMPRESSION: No acute intracranial abnormality. Reading Location: [id number] Head/Neck CTA 07/24/24 21:43 IMPRESSION: No acute arterial abnormality of the head or neck. Reading Location: [id number] Chest X-Ray 07/24/24 22:10 IMPRESSION: No acute cardiopulmonary abnormality. Reading Location: [id number] Discharge Plan Triage Chief Complaint: Neuro S/Sx ED Provider: Geronimo Morales Dx/Rx/DC Orders Prescriptions: No Action atorvastatin 10 mg Tablet 10 mg PO QHS 90 Days Qty: 90 0RF amlodipine 5 mg Tablet 5 mg PO DAILY 30 Days Qty: 30 2RF aspirin 81 mg Tablet,Delayed Release (Dr/Ec) 81 mg PO BREAKFAST 90 Days Qty: 90 0RF metoprolol succinate 25 mg tablet extended release 24 hr 25 mg PO DAILY Primary Care Provider: Rehana Ceja NP Referrals: Rehana Ceja NP, PHARMACOGENETICIST-C [Primary Care Provider] - Print Language: Bulgarian What to do if you have Problems For any increased pain, shortness of breath, bleeding, nausea or vomiting, chestpain, or any unexpected problems, contact your Primary Care Provider. Call [facility] ([phone]) or report to the closest Emergency Room. Call 911 if necessary. 07/24/24 6209 <Electronically signed by Geronimo Morales DO> Cosigner Signature (if applicable): CC: PHARMACOGENETICIST-C Rehana Ceja ~ Signed [facility] Work Phone: [phone] Discharge summary Author Geronimo Morales [facility] Note Date/Time July 24, 2024 11:35 pm [facility] Medical Records Department [address] [place] [id number] Emergency Department Summary 07/24/24 MR#: [id number] Acct: [id number] Name: TEODORA GRIFFITH Rep #:[id number] : 1965 59 From: Geronimo tidwell DO PCP: BIPIN Clinton Status:REG E R Location: ED HPI History of Present Illness Chief Complaint: Neuro S/Sx Narrative Narrative: Chief complaint and HPI: Concern for recurrent TIAs. 59-year-old male with pastmedical history of HTN, HLD presents for evaluation for concern of TIAs. History taken by patient as well as significant other. Significant other stateson 07/14 she came home and found the patient lying in the grass. At that time, he could not remember what he was doing or what he had done earlier in the day. It lasted several minutes but then resolved and patient's memory returned. He was lightheaded at that time. Patient followed up with his PCP regarding this and scheduled further testing for evaluation of possible TIA. Told the patient to present to the ED if this reoccurs. Patient states that 6 PM today he had anepisode of 30 seconds where he had total memory loss. Associated symptom at that time was some pain in his left upper extremity. He now endorses some slight loss of sensation only in his shoulder on the left. found out and brought the patient for evaluation. Patient currently denies any fever, chills,headache, shortness of breath, chest pain abdominal pain, nausea, vomiting. Denies any aphasia, dysarthria, weakness. Review of systems: See HPI Medications: As listed on the chart Allergies: As listed on the chart PFSH: Per chart Vital signs: As listed on the chart. Reviewed. Physical exam: Gen: A&O x3, NAD Head: Normocephalic, atraumatic Eyes: No sclera icterus, conjunctiva clear, PERRL, EOMI ENT: Moist mucous membranes, No facial asymmetry Neck: Trachea midline, No JVD CV: RRR, no murmurs, no peripheral edema Resp: Lungs CTA BL, no w/r/c GI: Abd soft, non-distended, non-tender, no r/r/g Musc: Full ROM, no deformity, strength +5/5 in all extremities, no pronator drift, no ataxia Skin: Warm, dry, intact Neuro: Alert, oriented, grossly intact, sensation intact other than endorses dull sensation to the left shoulder only compared to the right, no aphasia, no dysarthria Psych: Cooperative, appropriate mood and affect PFS PFSH Medical History Left carpal tunnel syndrome Bilateral knee pain Former smoker Obesity (BMI 30.0-34.9) Incisional hernia Hypokalemia Atypical chest pain Iron deficiency anemia Elevated PSA GERD (gastroesophageal reflux disease) Essential (primary) hypertension Lightheadedness SOB (shortness of breath) Osteoarthritis of left knee Left knee pain Arthritis Restless legs Migraine headache Chewing tobacco nicotine dependence Home Medications ?Medication ?Instructions ?Recorded ?Last Taken ?Type amlodipine 5 mg tablet 5 mg PO DAILY 30 days #30 ta bs 11/10/23 Unknown Rx aspirin 81 mg tablet,delayed 81 mg PO BREAKFAST 90 day s #90 tabs 11/10/23 Unknown Rx release atorvastatin 10 mg tablet 10 mg PO QHS 90 days #90 tab s 11/10/23 Unknown Rx metoprolol succinate 25 mg 25 mg PO DAILY 07/24/24 Unk nown History tablet,extended release 24 hr Allergy/AdvReac Type Severity Reaction Status Date / Time shellfish derived Allergy Anaphylaxis Verified 07/24/24 21:03 Family History Mother Heart disease Diabetes Hypertension Father Cancer Kidney disease Heart disease Surgical History Hx of appendectomy Hx of arthroscopy of shoulder Hx of inguinal hernia repair H/O hand surgery Social History household members: spouse Smoking Status: Current every day smoker tobacco type: smokeless tobacco alcohol intake: never substance use type: does not use EXAM Physical Exam Const Vital Signs: 07/24/24 21:03 07/24/24 23:02 Temperature 97.5 F L Temperature Source Temporal Pulse Rate 92 82 Respiratory Rate 18 20 H Blood Pressure 130/102 H 124/92 H Blood Pressure Mean 111 102 Pulse Ox 100 96 Oxygen Delivery Method Room Air MDM MDM MDM Narrative Medical decision making narrative: 59-year-old male with past medical history of HTN, HLD presents for evaluation for concern of TIAs. Patient has had 2 episodes of memory loss including today and on 07/14. Memory loss has resolved currently. Only deficit is duller sensation of the left shoulder compared to the right. Last known normal 6 PM. Patient outside the CVA window. Low suspicion for LVO given symptoms and physical exam. Differential diagnosis includes but is not limited to TIA, CVA, electrolyte abnormality, dehydration, UTI. NS bolus ordered. Laboratory workupordered including CT head and CTA head and neck. CBC without leukocytosis or anemia. Coagulation panel unremarkable. BMP shows hyponatremia of 3.2, this iswith hemolysis. P.o. potassium ordered. Will add on magnesium. Troponin unremarkable. CT of the head shows no acute intracranial abnormality. CTA of the head and neck shows no acute arterial abnormality. UA pending at this time. Patient will warrant admission for TIA/CVA workup although cannot rule out short episodes of total global amnesia. Patient and updated all results and confirmed understand the plan. Patient was discussed with hospitalist who accepted admission. EKG: Interpreted by me/EM physician: EKG shows normal sinus rhythm without any acute ischemic changes. Heart rate 80 Diagnostic: Interpreted by me/EM physician: Chest x-ray without pneumonia, effusion, cardiomegaly, pneumothorax. Radiology in agreement. Impression: 1. Multiple episodes of memory loss 2. Concern for TIA/CVA versus episodes of total global amnesia 3. Hypokalemia Lab Data Labs: Laboratory Results - last 24 hr 07/24/24 21:15 WBC 7.4 RBC 4.96 Hgb 15.2 Hct 42.9 MCV 86.5 MCH 30.6 MCHC 35.4 RDW Std Deviation 37.2 RDW Coeff of Jefferson 11.8 Plt Count 326 MPV 8.8 Immature Gran % (Auto) 0.700 Neut % (Auto) 75.1 H Lymph % (Auto) 17.2 L Colbert % (Auto) 5.5 Eos % (Auto) 1.1 Baso % (Auto) 0.4 Absolute Neuts (auto) 5.6 Absolute Lymphs (auto) 1.27 Nucleated RBC % 0 PT 14.3 INR 1.1 APTT 27.5 Sodium 139 Potassium 3.2 L Chloride 105 Carbon Dioxide 19.1 L Anion Gap 15 BUN 9 Creatinine 0.83 Estim Creat Clear Calc 86.48 Est GFR (MDRD) Non-Af 101 BUN/Creatinine Ratio 10.6 Glucose 157 H Calcium 9.2 Troponin T High Sens 7 Radiography Diagnostic Testing: Clinical Impression(s) from Imaging Studies Brain CT 07/24/24 21:43 IMPRESSION: No acute intracranial abnormality. Reading Location: [id number] Head/Neck CTA 07/24/24 21:43 IMPRESSION: No acute arterial abnormality of the head or neck. Reading Location: [id number] Chest X-Ray 07/24/24 22:10 IMPRESSION: No acute cardiopulmonary abnormality. Reading Location: [id number] Discharge Plan Triage Chief Complaint: Neuro S/Sx ED Provider: Klusty-Fátima,Geronimo Dx/Rx/DC Orders Prescriptions: No Action atorvastatin 10 mg Tablet 10 mg PO QHS 90 Days Qty: 90 0RF amlodipine 5 mg Tablet 5 mg PO DAILY 30 Days Qty: 30 2RF aspirin 81 mg Tablet,Delayed Release (Dr/Ec) 81 mg PO BREAKFAST 90 Days Qty: 90 0RF metoprolol succinate 25 mg tablet extended release 24 hr 25 mg PO DAILY Primary Care Provider: Rehana Ceja NP Referrals: Rehana Ceja PHARMACOGENETICIST, PHARMACOGENETICIST-C [Primary Care Provider] - Print Language: Bulgarian What to do if you have Problems For any increased pain, shortness of breath, bleeding, nausea or vomiting, chestpain, or any unexpected problems, contact your Primary Care Provider. Call [facility] ([phone]) or report to the closest Emergency Room. Call 911 if necessary. 07/24/24 3349 <Electronically signed by Geronimo Morales DO> Cosigner Signature (if applicable): CC: BIPIN Ceja ~ Signed [facility] Work Phone: 1(639) 110-228506-04-2025 Evaluation note* Diagnosis Onset Date Resolution Status Admit Date Amnesia acute July 24, 2024 11:28pm TIA (transient ischemic attack) acut e July 24, 2024 11:28pm [facility] Work Phone: 1([phone]) [phone] Evaluation note* Diagnosis Onset Date Resolution Status Admit Date TIA (transient ischemic attack) acut e July 24, 2024 11:28pm [facility] Work Phone: 1(503) 693-854206-04-2025 Evaluation note* Diagnosis Onset Date Resolution Status Admit Date Amnesia resolved July 24, 2024 11:28pm TIA (transient ischemic attack) inactive July 24, 2024 1 1:28pm Transient ischemia noneactive July 232024 8:28am [facility] Work Phone: 1([phone]) 568-298506-04-2025 Evaluation note* Diagnosis Onset Date Resolution Status Admit Date TIA (transient ischemic attack) acute July 24, 2024 1 1:28pm Amnesia deleted July 24, 2024 11:28pm Facial paresthesia acute July 232024 8:28am Migraine headache acute August 162024 8:28am TIA (transient ischemic attack) acute August 16, 2024 8:28am Insomnia acute October 7:49am Memory loss acute October 7:49am Migraine headache acute 2024 7:49am TIA (transient ischemic attack) acute November 15, 2024 7:49am [facility] Work Phone: [phone] 474-777606-04-2025 History and physical note Author Ileana Minaya [facility] Note Date/Time July 24, 2024 11:50 pm [facility] Medical Records Department [address] [place] [address] H&P Exam - Hospitalist 07/24/24 2328 MR#: [id number] Acct: [id number] Name: TEODORA GRIFFITH Rep #:[id number] : 1965 59 From: Ileana Minaya MD PCP: BIPIN Clinton Status:ADM I NO Location: ICU CVICU20 4-1 HPI - General General Date of Admission: 07/24/24 Date of Service: 07/24/24 Chief Complaint: Transient confusion. HPI Narrative The patient is a 59 y/o M w/ PMHx: Chew tobacco use, Chronic anemia/Fe deficiency anemia, GERD, HTN, HLD, RLS, Migraine headaches who presents to the [facility] ED with history at approximately 7 PM of complete amnesia lasting 15-30 seconds with complete resolution following however he alsonotes that he had mild dizziness on Tuesday which required him to lay down to avoid passing out prompting PCP evaluation who arrange outpatient evaluation. Patient had similar episode of confusion that was very short-lived on 07/14/2024 with memory resolution completely following. He does state some discomfort to the left shoulder and does have some mild altered sensation to the left shoulderfocally as well as occasionally his left cheek. Currently he notes complete resolution of all symptoms. He currently denies any lightheadedness or dizziness. Workup in the ED included T97.5, heart 92, BP 130/102, respiratory rate 18, 100 % room air, CBC with WBC 7.4, he 1 15.2, platelet 326 without marked shift, unremarkable coags, BMP with potassium 3.2, carbon oxide 19.1, glucose 157, troponin 7, CT of the brain with no acute intracranial findings, CTA head and neck with no acute abnormalities, chest x-ray with no acute cardiopulmonary findings, EKG with SR without evidence of acute ischemia. In theED patient ministered 1 L normal saline and potassium 40 mg p.o. x 1. UA pendingupon evaluation. PFSH Medical History Left carpal tunnel syndrome Bilateral knee pain Former smoker Obesity (BMI 30.0-34.9) Incisional hernia Hypokalemia Atypical chest pain Iron deficiency anemia Elevated PSA GERD (gastroesophageal reflux disease) Essential (primary) hypertension Lightheadedness SOB (shortness of breath) Osteoarthritis of left knee Left knee pain Arthritis Restless legs Migraine headache Chewing tobacco nicotine dependence Home Medications ?Medication ?Instructions ?Recorded ?Last Taken ?Type amlodipine 5 mg tablet 5 mg PO DAILY 30 days #30 ta bs 11/10/23 Unknown Rx aspirin 81 mg tablet,delayed 81 mg PO BREAKFAST 90 day s #90 tabs 11/10/23 Unknown Rx release atorvastatin 10 mg tablet 10 mg PO QHS 90 days #90 tab s 11/10/23 Unknown Rx metoprolol succinate 25 mg 25 mg PO DAILY 07/24/24 Unk nown History tablet,extended release 24 hr Allergy/AdvReac Type Severity Reaction Status Date / Time shellfish derived Allergy Anaphylaxis Verified 07/24/24 21:03 Family History Mother Heart disease Diabetes Hypertension Father Cancer Kidney disease Heart disease Surgical History Hx of appendectomy Hx of arthroscopy of shoulder Hx of inguinal hernia repair H/O hand surgery Social History household members: spouse Smokeless tobacco user: chewing tobacco alcohol intake: never substance use type: does not use ROS ROS Narrative Admission Review of Systems: CONSTITUTIONAL: No weight loss, fever, chills, + weakness or fatigue. HEENT: + Transient facial and left upper extremity paresthesias. Eyes: No visual loss, blurred vision, double vision or yellow sclerae. Ears, Nose, Throat: No hearing loss, sneezing, congestion, runny nose or sore throat. SKIN: No rash or itching, lesions, wounds. CARDIOVASCULAR: + Episode of lightheadedness/dizziness with near syncopal sensation. No chest pain, chest pressure or chest discomfort, palpitations, edema, orthopnea. RESPIRATORY: No shortness of breath, cough or sputum, wheezing, hemoptysis. GASTROINTESTINAL: No anorexia, nausea, vomiting or diarrhea, abdominal pain, melena, BRBPR. GENITOURINARY: No dysuria, frequency, urgency or retention. NEUROLOGICAL: + Transient episodes of amnesia, left upper extremity specificallyshoulder and occasional facial paresthesias no headache, dizziness, syncope, paralysis, ataxia, focal weakness, change in bowel or bladder control, seizure. MUSCULOSKELETAL: + muscle, back pain, joint pain or stiffness. HEMATOLOGIC: No anemia, bleeding or bruising. LYMPHATICS: No enlarged nodes. No history of splenectomy. PSYCHIATRIC: No history of depression or anxiety. ENDOCRINOLOGIC: No reports of sweating, cold or heat intolerance. No polyuria orpolydipsia. ALLERGIES: + History of shellfish anaphylaxis. Vital Signs Vital Signs Vital Signs: 07/24/24 21:03 07/24/24 23:02 Temperature 97.5 F L Temperature Source Temporal Pulse Rate 92 82 Respiratory Rate 18 20 H Blood Pressure 130/102 H 124/92 H Blood Pressure Mean 111 102 Pulse Ox 100 96 Oxygen Delivery Method Room Air Weight Weight: 166 lb 10.711 oz Body Mass Index (BMI) 26.9 Physical Exam Narrative Physical Examination: General: Awake, alert, oriented x 3 and cooperative, seated upright in the ED bed, currently and himself note that he is at his neurological baseline. Skin: Normal color, normal turgor, no icterus, no cyanosis except occasional stage ecchymoses, abrasion. HEENT: AT/NC, EOMI, PERRLA, MMM, no carotid bruits or JVD noted. Lungs: CTA bilaterally, moderate effort, mild decrease BL bases, no rales, ronchi or wheezing. Heart: Regular rate and rhythm; no gallop, rub audible. Abdomen: Soft, NTTP, ND, normal BS, no appreciated HSM. 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 Neurological: Patient awake, alert, oriented as noted, cognitive function intact; pupils equally reactive to light and accommodation, cranial nerves grossly normal, moving all 4 extremities, no focal deficits, strength preserved,finger-nose and [id number] appropriate, equivocal Babinski, sensation intact. Psychiatric: Affect appears fatigued otherwise normal, no acute evidence of depressive or anxiety feelings. Results Lab / Micro Data 07/24/24 21:15 07/24/24 21:15 Labs: Laboratory Results - last 24 hr 07/24/24 21:15: WBC 7.4, RBC 4.96, Hgb 15.2, Hct 42.9, MCV 86.5, MCH 30.6, MCHC 35.4, RDW Std Deviation 37.2, RDW Coeff of Jefferson 11.8, Plt Count 326, MPV 8.8, Immature Gran % (Auto) 0.700, Neut % (Auto) 75.1 H, Lymph % (Auto) 17.2 L, Colbert % (Auto) 5.5, Eos % (Auto) 1.1, Baso % (Auto) 0.4, Absolute Neuts (auto) 5.6, Absolute Lymphs (auto) 1.27, Nucleated RBC % 0, PT 14.3, INR 1.1, APTT 27.5, Sodium 139, Potassium 3.2 L, Chloride 105, Carbon Dioxide 19.1 L, Anion Gap 15, BUN 9, Creatinine 0.83, Estim Creat Clear Calc 86.48, Est GFR (MDRD) Non-Af 101,BUN/Creatinine Ratio 10.6, Glucose 157 H, Calcium 9.2, Troponin T High Sens 7 Imaging Radiology Impression Brain CT 07/24/24 21:43 IMPRESSION: No acute intracranial abnormality. Reading Location: [id number] Head/Neck CTA 07/24/24 21:43 IMPRESSION: No acute arterial abnormality of the head or neck. Reading Location: [id number] Chest X-Ray 07/24/24 22:10 IMPRESSION: No acute cardiopulmonary abnormality. Reading Location: [id number] Assessment & Plan Assessment/Plan (1) TIA (transient ischemic attack): PLAN: Plan The patient is a 59 y/o M w/ PMHx: Chew tobacco use, Chronic anemia/Fe deficiency anemia, GERD, HTN, HLD, RLS, Migraine headaches who presents to the [facility] ED with history at approximately 7 PM of complete amnesia lasting 15-30 seconds with complete resolution following however he alsonotes that he had mild dizziness on Tuesday which required him to lay down to avoid passing out prompting PCP evaluation who arrange outpatient evaluation. #1. Transient episode of global amnesia, resolved, concurrently noted also recent near syncopal event of unclear etiology in addition to transient intermittent left shoulder paresthesias: Will admit to PCU, will obtain MRI Brain, ECHO, PT/OT/Speech/Nutrition evaluation per protocol. Will allow permissive HTN to be cautious, maintain on asa, add statin w/ AM FLP, fall precautions. Mag, TSH, FLP, HgbA1c requested. Maintain on fall and aspiration precautions. Orthostatics requested. Will continue to cycle cardiac enzymes. #2. Hypokalemia: Admission K+ 3.2, magnesium pending, supplementation given, repeat level in AM. #3. Chronic anemia/iron deficiency anemia: Admission hemoglobin 15.2, MCV 86.5,baseline hemoglobin noted previously similar/normal range, not on any chronic iron supplementation currently noted, clarified to be certain, trend CBC. #4. Chew tobacco usage: Encourage cessation, nicotine gum as needed. #5. Hypertension: Given #1 evaluation will maintain permissive hypertension with as needed agents per stroke protocol pending MRI. #6. GERD: Per current was not a regimen, will have as needed Mylanta. #7. Restless leg syndrome: Per current list on a regimen, if necessary may add Requip. #8. Hyperlipidemia: Continue home statin regimen. AM FLP. #9. DVT prophylaxis: Lovenox. Charges/Coding Visit Charges Inpatient E&M: 32033 Init Hosp L2 07/24/24 4140 <Electronically signed by Ileana Minaya MD> Cosigner Signature (if applicable): CC: BIPIN Ceja; Dr. Ileana Minaya MD~ Signed [facility] Work Phone: 1([phone]) 176-935706-03-2025 History and physical note [facility] Medical Records Department [address] [facility] [place] [address] H&P Exam - Hospitalist 07/24/24 1394 MR#: [id number] Acct: [id number] Name: TEODORA GRIFFITH Rep #:[id number] : 1965 59 From: Ileana Minaya MD PCP: BIPIN Clinton Status:ADM I NO Location: ICU CVICU20 4-1 HPI - General General Date of Admission: 07/24/24 Date of Service: 07/24/24 Chief Complaint: Transient confusion. HPI Narrative The patient is a 59 y/o M w/ PMHx: Chew tobacco use, Chronic anemia/Fe deficiency anemia, GERD, HTN, HLD, RLS, Migraine headaches who presents to the [facility] ED with history at approximately 7 PM of complete amnesia lasting 15-30 seconds with complete resolution following howeverhe alsonotes that he had mild dizziness on Tuesday which required him to lay down to avoid passingout prompting PCP evaluation who arrange outpatient evaluation. Patient had similar episode of confusion that was very short-lived on 07/14/2024 with memory resolution completely following. He does state some discomfort to the left shoulder and does have some mild altered sensation to the left should erfocally as well as occasionally his left cheek. Currently he notes complete resolution of all symptoms. He currently denies any lightheadedness or dizziness. Workup in the ED included T97.5, heart 92, BP 130/102, respiratory rate 18, 100 % room air, CBC with WBC 7.4, he 1 15.2, platelet 326 without marked shift, unremarkable coags, BMP with potassium 3.2, carbon oxide 19.1, glucose 157, troponin 7, CT of the brain with no acute intracranial findings, CTA head and neck with no acute abnormalities, chest x-ray with no acute cardiopulmonary findings, EKG with SR without evidence of acute ischemia. In theED patient ministered 1 L normal saline and potassium 40 mg p.o. x 1. UA pendingupon evaluation. PFSH Medical History Left carpal tunnel syndrome Bilateral knee pain Former smoker Obesity (BMI 30.0-34.9) Incisional hernia Hypokalemia Atypical chest pain Iron deficiency anemia Elevated PSA GERD (gastroesophageal reflux disease) Essential (primary) hypertension Lightheadedness SOB (shortness of breath) Osteoarthritis of left knee Left knee pain Arthritis Restless legs Migraine headache Chewing tobacco nicotine dependence Home Medications ?Medication ?Instructions ?Recorded ?Last Taken ?Type amlodipine 5 mg tablet 5 mg PO DAILY 30 days #30 ta bs 11/10/23 Unknown Rx aspirin 81 mg tablet,delayed 81 mg PO BREAKFAST 90 day s #90 tabs 11/10/23 Unknown Rx release atorvastatin 10 mg tablet 10 mg PO QHS 90 days #90 tab s 11/10/23 Unknown Rx metoprolol succinate 25 mg 25 mg PO DAILY 07/24/24 Unk nown History tablet,extended release 24 hr Allergy/AdvReac Type Severity Reaction Status Date / Time shellfish derived Allergy Anaphylaxis Verified 07/24/24 21:03 Family History Mother Heart disease Diabetes Hypertension Father Cancer Kidney disease Heart disease Surgical History Hx of appendectomy Hx of arthroscopy of shoulder Hx of inguinal hernia repair H/O hand surgery Social History household members: spouse Smokeless tobacco user: chewing tobacco alcohol intake: never substance use type: does not use ROS ROS Narrative Admission Review of Systems: CONSTITUTIONAL: No weight loss, fever, chills, + weakness or fatigue. HEENT: + Transient facial and left upper extremity paresthesias. Eyes: No visual loss, blurred vision, double vision or yellow sclerae. Ears, Nose, Throat: No hearing loss, sneezing, congestion, runny nose or sore throat. SKIN: No rash or itching, lesions, wounds. CARDIOVASCULAR: + Episode of lightheadedness/dizziness with near syncopal sensation. No chest pain,chest pressure or chest discomfort, palpitations, edema, orthopnea. RESPIRATORY: No shortness of breath, cough or sputum, wheezing, hemoptysis. GASTROINTESTINAL: No anorexia, nausea, vomiting or diarrhea, abdominal pain, melena, BRBPR. GENITOURINARY: No dysuria, frequency, urgency or retention. NEUROLOGICAL: + Transient episodes of amnesia, left upper extremity specificallyshoulder and occasional facial paresthesias no headache, dizziness, syncope, paralysis, ataxia, focal weakness, change in bowel or bladder control, seizure. MUSCULOSKELETAL: + muscle, back pain, joint pain or stiffness. HEMATOLOGIC: No anemia, bleeding or bruising. LYMPHATICS: No enlarged nodes. No history of splenectomy. PSYCHIATRIC: No history of depression or anxiety. ENDOCRINOLOGIC: No reports of sweating, cold or heat intolerance. No polyuria orpolydipsia. ALLERGIES: + History of shellfish anaphylaxis. Vital Signs Vital Signs Vital Signs: 07/24/24 21:03 07/24/24 23:02 Temperature 97.5 F L Temperature Source Temporal Pulse Rate 92 82 Respiratory Rate 18 20 H Blood Pressure 130/102 H 124/92 H Blood Pressure Mean 111 102 Pulse Ox 100 96 Oxygen Delivery Method Room Air Weight Weight: 166 lb 10.711 oz Body Mass Index (BMI) 26.9 Physical Exam Narrative Physical Examination: General: Awake, alert, oriented x 3 and cooperative, seated upright in the ED bed, currently and himself note that he is at his neurological baseline. Skin: Normal color, normal turgor, no icterus, no cyanosis except occasional stage ecchymoses, abrasion. HEENT: AT/NC, EOMI, PERRLA, MMM, no carotid bruits or JVD noted. Lungs: CTA bilaterally, moderate effort, mild decrease BL bases, no rales, ronchi or wheezing. Heart: Regular rate and rhythm; no gallop, rub audible. Abdomen: Soft, NTTP, ND, normal BS, no appreciated HSM. 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 Neurological: Patient awake, alert, oriented as noted, cognitive function intact; pupils equally reactive to light and accommodation, cranial nerves grossly normal, moving all 4 extremities, no focaldeficits, strength preserved,finger-nose and mnxn-vs-qqjx appropriate, equivocal Babinski, sensation intact. Psychiatric: Affect appears fatigued otherwise normal, no acute evidence of depressive or anxiety feelings. Results Lab / Micro Data 07/24/24 21:15 07/24/24 21:15 Labs: Laboratory Results - last 24 hr 07/24/24 21:15: WBC 7.4, RBC 4.96, Hgb 15.2, Hct 42.9, MCV 86.5, MCH 30.6, MCHC 35.4, RDW Std Deviation 37.2, RDW Coeff of Jefferson 11.8, Plt Count 326, MPV 8.8, Immature Gran % (Auto) 0.700, Neut % (Auto) 75.1 H, Lymph % (Auto) 17.2 L, Colbert % (Auto) 5.5, Eos % (Auto) 1.1, Baso % (Auto) 0.4, Absolute Neuts (auto) 5.6, Absolute Lymphs (auto) 1.27, Nucleated RBC % 0, PT 14.3, INR 1.1, APTT 27.5, Sodium 139, Potassium 3.2 L, Chloride 105, Carbon Dioxide 19.1 L, Anion Gap 15, BUN 9, Creatinine 0.83, Estim Creat Clear Calc 86.48, Est GFR (MDRD) Non-Af 101,BUN/Creatinine Ratio 10.6, Glucose 157 H, Calcium 9.2, Troponin T High Sens 7 Imaging Radiology Impression Brain CT 07/24/24 21:43 IMPRESSION: No acute intracranial abnormality. Reading Location: [id number] Head/Neck CTA 07/24/24 21:43 IMPRESSION: No acute arterial abnormality of the head or neck. Reading Location: [id number] Chest X-Ray 07/24/24 22:10 IMPRESSION: No acute cardiopulmonary abnormality. Reading Location: [id number] Assessment & Plan Assessment/Plan (1) TIA (transient ischemic attack): PLAN: Plan The patient is a 59 y/o M w/ PMHx: Chew tobacco use, Chronic anemia/Fe deficiency anemia, GERD, HTN, HLD, RLS, Migraine headaches who presents to the [facility] ED with history at approximately 7 PM of complete amnesia lasting 15-30 seconds with complete resolution following howeverhe alsonotes that he had mild dizziness on Tuesday which required him to lay down to avoid passingout prompting PCP evaluation who arrange outpatient evaluation. #1. Transient episode of global amnesia, resolved, concurrently noted also recent near syncopal event of unclear etiology in addition to transient intermittent left shoulder paresthesias: Will admit to PCU, will obtain MRI Brain, ECHO, PT/OT/Speech/Nutrition evaluation per protocol. Will allow permi ssive HTN to be cautious, maintain on asa, add statin w/ AM FLP, fall precautions. Mag, TSH, FLP, HgbA1c requested. Maintain on fall and aspiration precautions. Orthostatics requested. Will continue to cycle cardiac enzymes. #2. Hypokalemia: Admission K+ 3.2, magnesium pending, supplementation given, repeat level in AM. #3. Chronic anemia/iron deficiency anemia: Admission hemoglobin 15.2, MCV 86.5,baseline hemoglobin noted previously similar/normal range, not on any chronic iron supplementation currently noted, clarified to be certain, trend CBC. #4. Chew tobacco usage: Encourage cessation, nicotine gum as needed. #5. Hypertension: Given #1 evaluation will maintain permissive hypertension with as needed agents per stroke protocol pending MRI. #6. GERD: Per current was not a regimen, will have as needed Mylanta. #7. Restless leg syndrome: Per current list on a regimen, if necessary may add Requip. #8. Hyperlipidemia: Continue home statin regimen. AM FLP. #9. DVT prophylaxis: Lovenox. Charges/Coding Visit Charges Inpatient E&M: 81030 Init Hosp L2 07/24/24 4809 Cosigner Signature (if applicable): CC: BIPIN Ceja; Dr. Ileana Minaya MD~ Signed [facility]06-03-2025 Discharge summary [facility] Medical Records Department [address] [place] [address] Emergency Department Summary 07/24/24 MR#: [id number] Acct: [id number] Name: TEODORA GRIFFITH Rep #:[id number] : 1965 59 From: Geronimo tidwell DO PCP: BIPIN Clinton Status:REG E R Location: ED HPI History of Present Illness Chief Complaint: Neuro S/Sx Narrative Narrative: Chief complaint and HPI: Concern for recurrent TIAs. 59-year-old male with pastmedical history of HTN, HLD presents for evaluation for concern of TIAs. History taken by patient as well as significantother. Significant other stateson 07/14 she came home and found the patient lying in the grass. At that time, he could not remember what he was doing or what he had done earlier in the day. It lasted several minutes but then resolved and patient's memory returned. He was lightheaded at that time. Patient followed up with his PCP regarding this and scheduled further testing for evaluation of possible TIA. Told the patient to present to the ED if this reoccurs. Patient states that 6 PM today he had anepisode of 30 seconds where he had total memory loss. Associated symptom at that time was some pain in his left upper extremity. He now endorses some slight loss of sensation only in his shoulder on the left. found out and brought the patient for evaluation. Patient currently denies any fever, chills,headache, shortness of breath, chest pain abdominal pain, nausea, vomiting. Denies any aph wilfredo, dysarthria, weakness. Review of systems: See HPI Medications: As listed on the chart Allergies: As listed on the chart PFSH: Per chart Vital signs: As listed on the chart. Reviewed. Physical exam: Gen: A&O x3, NAD Head: Normocephalic, atraumatic Eyes: No sclera icterus, conjunctiva clear, PERRL, EOMI ENT: Moist mucous membranes, No facial asymmetry Neck: Trachea midline, No JVD CV: RRR, no murmurs, no peripheral edema Resp: Lungs CTA BL, no w/r/c GI: Abd soft, non-distended, non-tender, no r/r/g Musc: Full ROM, no deformity, strength +5/5 in all extremities, no pronator drift, no ataxia Skin: Warm, dry, intact Neuro: Alert, oriented, grossly intact, sensation intact other than endorses dull sensation to the left shoulder only compared to the right, no aphasia, no dysarthria Psych: Cooperative, appropriate mood and affect [facility] PFSH Medical History Left carpal tunnel syndrome Bilateral knee pain Former smoker Obesity (BMI 30.0-34.9) Incisional hernia Hypokalemia Atypical chest pain Iron deficiency anemia Elevated PSA GERD (gastroesophageal reflux disease) Essential (primary) hypertension Lightheadedness SOB (shortness of breath) Osteoarthritis of left knee Left knee pain Arthritis Restless legs Migraine headache Chewing tobacco nicotine dependence Home Medications ?Medication ?Instructions ?Recorded ?Last Taken ?Type amlodipine 5 mg tablet 5 mg PO DAILY 30 days #30 ta bs 11/10/23 Unknown Rx aspirin 81 mg tablet,delayed 81 mg PO BREAKFAST 90 day s #90 tabs 11/10/23 Unknown Rx release atorvastatin 10 mg tablet 10 mg PO QHS 90 days #90 tab s 11/10/23 Unknown Rx metoprolol succinate 25 mg 25 mg PO DAILY 07/24/24 Unk nown History tablet,extended release 24 hr Allergy/AdvReac Type Severity Reaction Status Date / Time shellfish derived Allergy Anaphylaxis Verified 07/24/24 21:03 Family History Mother Heart disease Diabetes Hypertension Father Cancer Kidney disease Heart disease Surgical History Hx of appendectomy Hx of arthroscopy of shoulder Hx of inguinal hernia repair H/O hand surgery Social History household members: spouse Smoking Status: Current every day smoker tobacco type: smokeless tobacco alcohol intake: never substance use type: does not use EXAM Physical Exam Const Vital Signs: 07/24/24 21:03 07/24/24 23:02 Temperature 97.5 F L Temperature Source Temporal Pulse Rate 92 82 Respiratory Rate 18 20 H Blood Pressure 130/102 H 124/92 H Blood Pressure Mean 111 102 Pulse Ox 100 96 Oxygen Delivery Method Room Air MDM MDM MDM Narrative Medical decision making narrative: 59-year-old male with past medical history of HTN, HLD presents for evaluation for concern of TIAs.Patient has had 2 episodes of memory loss including today and on 07/14. Memory loss has resolved currently. Only deficit is duller sensation of the left shoulder compared to the right. Last known normal 6 PM. Patient outside the CVA window. Low suspicion for LVO given symptoms and physical exam. Differential diagnosis includes but is not limited to TIA, CVA, electrolyte abnormality, dehydration, UTI. NS bolus ordered. Laboratory workupordered including CT head and CTA head and neck. CBC without leukocytosis or anemia. Coagulation panel unremarkable. BMP shows hyponatremia of 3.2, this iswith hemolysis. P.o. potassium ordered. Will add on magnesium. Troponin unremarkable. CT of the head showsno acute intracranial abnormality. CTA of the head and neck shows no acute arterial abnormality. UApending at this time. Patient will warrant admission for TIA/CVA workup although cannot rule out short episodes of total global amnesia. Patient and updated all results and confirmed understand the plan. Patient was discussed with hospitalist who accepted admission. EKG: Interpreted by me/EM physician: EKG shows normal sinus rhythm without any acute ischemic changes. Heart rate 80 Diagnostic: Interpreted by me/EM physician: Chest x-ray without pneumonia, effusion, cardiomegaly, pneumothorax. Radiology in agreement. Impression: 1. Multiple episodes of memory loss 2. Concern for TIA/CVA versus episodes of total global amnesia 3. Hypokalemia Lab Data Labs: Laboratory Results - last 24 hr 07/24/24 21:15 WBC 7.4 RBC 4.96 Hgb 15.2 Hct 42.9 MCV 86.5 MCH 30.6 MCHC 35.4 RDW Std Deviation 37.2 RDW Coeff of Jefferson 11.8 Plt Count 326 MPV 8.8 Immature Gran % (Auto) 0.700 Neut % (Auto) 75.1 H Lymph % (Auto) 17.2 L Colbert % (Auto) 5.5 Eos % (Auto) 1.1 Baso % (Auto) 0.4 Absolute Neuts (auto) 5.6 Absolute Lymphs (auto) 1.27 Nucleated RBC % 0 PT 14.3 INR 1.1 APTT 27.5 Sodium 139 Potassium 3.2 L Chloride 105 Carbon Dioxide 19.1 L Anion Gap 15 BUN 9 Creatinine 0.83 Estim Creat Clear Calc 86.48 Est GFR (MDRD) Non-Af 101 BUN/Creatinine Ratio 10.6 Glucose 157 H Calcium 9.2 Troponin T High Sens 7 Radiography Diagnostic Testing: Clinical Impression(s) from Imaging Studies Brain CT 07/24/24 21:43 IMPRESSION: No acute intracranial abnormality. Reading Location: [id number] Head/Neck CTA 07/24/24 21:43 IMPRESSION: No acute arterial abnormality of the head or neck. Reading Location: [id number] Chest X-Ray 07/24/24 22:10 IMPRESSION: No acute cardiopulmonary abnormality. Reading Location: [id number] Discharge Plan Triage Chief Complaint: Neuro S/Sx ED Provider: Geronimo Morales Dx/Rx/DC Orders Prescriptions: No Action atorvastatin 10 mg Tablet 10 mg PO QHS 90 Days Qty: 90 0RF amlodipine 5 mg Tablet 5 mg PO DAILY 30 Days Qty: 30 2RF aspirin 81 mg Tablet,Delayed Release (Dr/Ec) 81 mg PO BREAKFAST 90 Days Qty: 90 0RF metoprolol succinate 25 mg tablet extended release 24 hr 25 mg PO DAILY Primary Care Provider: Rehana Ceja NP Referrals: Rehana Ceja PHARMACOGENETICIST, PHARMACOGENETICIST-C [Primary Care Provider] - Print Language: Bulgarian What to do if you have Problems For any increased pain, shortness of breath, bleeding, nausea or vomiting, chestpain, or any unexpected problems, contact your Primary Care Provider. Call [facility] ([phone]) or report tothe closest Emergency Room. Call 911 if necessary. 07/24/24 2335 Cosigner Signature (if applicable): CC: OSMAR-Ed Ceja ~ Signed [facility]06-03-2025 Radiology Diagnostic study note [facility] Imaging Services [address] [place], [place] [id number] CTA Head AND Neck W/ Contrast MR#: [id number] Acct: [id number] Name: TEODORA GRIFFITH Rep #: [id number] : 1965 M 59 From: Jaycob Cherry MD PCP: BIPIN Clinton Status: REG E R Study:CTA Head AND Neck W/ Contrast Date of E xam: 07/24/24 Exam# [id number] Ordering Dr: Geronimo Dumont DO PROCEDURE: CTA HEAD AND NECK W/ CONTRAST 07/24/2024 REASON FOR EXAM: TIA/CVA TECHNIQUE: CTA imaging of the head and neck from the aortic arch to the skull vertex with out contrast and with intravenous contrast. Multiplanar and multisequence images were obtained. CONTRAST: Isovue 370 VOLUME: 100 mL. One or more dose reduction techniques were used (e.g., Automated exposure control, adjustment of the mA and/or kV according to patient size, use of iterative reconstruction technique). RADIATION DOSE SUMMARY: CTDlvol: 53.97+ 18.86 mGy DLP: 807.52 mGycm COMPARISON: None. FINDINGS: The common carotid arteries are patent without evidence of stenosis or injury. The internal carotidarteries are patent without evidence of stenosis or injury. The cervical vertebral arteries are patent without evidence of stenosis or injury. Atherosclerosis of the carotid siphons without significant stenosis. The rhtvqa-bn-Iehdmn is patent. The anterior cerebral, anterior communicating, middle cerebral, and posterior cerebral arteries are patent. The vertebrobasilar system is patent. The lung apices are clear. CT/CTA Head AND Neck W/ Contrast IMPRESSION: No acute arterial abnormality of the head or neck. Reading Location: [id number] CC: BIPIN Ceja; Dr. Geronimo Morales DO ~ Electronic Imaging System Operator: Signed [facility]06-03-2025 Radiology Diagnostic study note [facility] Imaging Services [address] [place] [address] Brain/Head without Contrast MR#: [id number] Acct: [id number] Name: TEODORA GRIFFITH Rep #: [id number] : 1965 M 59 From: Jaycob Cherry MD PCP: BIPIN Clinton Status: REG E R Study:Brain/Head without Contrast Date of Exa m: 07/24/24 Exam# [id number] Ordering Dr: Geronimo Dumont DO PROCEDURE: BRAIN/HEAD WITHOUT CONTRAST 07/24/2024 REASON FOR EXAM: CONCERN FOR TIA/CVA TECHNIQUE: Head CT without intravenous contrast. Coronal and Sagittal reconstruction serieswere provided. One or more dose reduction techniques were used (e.g., Automated exposure control, adjustment of the mA and/or kV according to patient size, use of iterative reconstruction technique. RADIATION DOSE SUMMARY: CTDlvol: 44.99 mGy DLP: 829.85 mGycm COMPARISON: None. FINDINGS: The ventricles are normal in size and midline in position. No evidence of acutehemorrhage or infarction. No extra-axial blood or fluid collections. The paranasal sinuses are clear. The mastoid air cells are well aerated. The calvarial vault and skull base are intact. CT/Brain/Head without Contrast IMPRESSION: No acute intracranial abnormality. Reading Location: [id number] CC: BIPIN Ceja; Dr. Geronimo Morales DO ~ Electronic Imaging System Operator: Signed [facility]06-03-2025 Radiology Diagnostic study note [facility] Imaging Services [address] [place], [place] [id number] Chest 1 View (Portable) MR#: [id number] Acct: [id number] Name: TEODORA GRIFFITH Rep #: [id number] : 1965 M 59 From: Jen Marie MD PCP: BIPIN Clinton Status: REG E R Study:Chest 1 View (Portable) Date of Exam: 07/24/24 Exam# [id number] Ordering Dr: Geronimo Dumont DO PROCEDURE: CHEST 1 VIEW (PORTABLE) 07/24/2024 REASON FOR EXAM: TIA/CVA TECHNIQUE: Frontal view of the chest. COMPARISON: Chest radiograph dated 11/09/2023 FINDINGS: Heart: The heart size is normal. Lungs: The lungs are clear. No significant pleural effusion. Bones: Degenerative changes are identified within the thoracic spine. RAD/Chest 1 View (Portable) IMPRESSION: No acute cardiopulmonary abnormality. Reading Location: [id number] CC: BIPIN Ceja; Dr. Geronimo Morales DO ~ Electronic Imaging System Operator: Signed [facility]09-10-2024 Hospital Discharge instructions Patient Education 11/01/2023 17:04:02 [...] of cholesterol and fat (plaque) in the arteriesof the heart. Heart attack, also called myocardial [...] This condition is also more likely to developin people who: Are overweight. Are male. Smoke [...] 02/07/2006 Document Revised: 04/27/2019 Document Reviewed: 04/27/2019 SpectraRep Patient Education 2020 [employer] Inc. 11/01/2023 16:53:48 Nonspecific Chest Pain, Adult, Kxvw-ac-Ycfe Nonspecific Chest Pain Chest pain can be [...] Follow these instructions at home: Medicines Take fdyo-opg-qpmuwfu and prescription medicines only as told by your doctor. If you were prescribed an antibiotic medicine, take it as told by your doctor. Do not stop taking the antibiotic even if you start to feel better. Lifestyle Rest as told by your doctor. Do not use any products that contain nicotine or tobacco, such as cigarettes, e- cigarettes, and chewing tobacco. If you need help quitting, ask your doctor. Do not drink alcohol. Make lifestyle changes as told by your doctor. These may include: ?Getting regular exercise. Ask your doctor what activities are safe for you. ?Eating a heart-healthy diet. A diet and speech language specialist (dietitian) can help you to learn healthy [...] 07/26/2008 Document Revised: 08/10/2018 Document Reviewed: 08/10/2018 SpectraRep Patient Education 2020 [employer]. Follow Up Care 10/31/2023 12:54:12 With:LINNEA SILVERIO CREWMAN MAIN BATTLE TANK-BRAILLE OPERATOR Address: [address] [place] [address] [address] [facility] [place] [address] [phone] When:5 to 7 days Comments:new onset of heart failure [facility] 09-10-2024 Note Discharge Instructions Thank you for allowing [facility] to assist you with your healthcare needs. The following is importantdischarge information regarding your hospital visit. Your Care Team [facility] Inpatient medicine Your Diagnosis Chest discomfort Chewing tobacco nicotine dependence Hypertension What to do next Instructions From Your Doctor You were admitted last night due to chest discomfort radiating down to your hand and accompanied byshortness of breath. You reported similar episodes of [...] We have a nurse practitioner here in [place] from Tuesday- who can make recommendationsand adjust your medications. Her name is Linnea Silverio CNP, and I have included her phone number inyour discharge paperwork. If you want to follow-up [...] OV 11/02/2023 09:30 AM EDT RADHA PADRON [facility] [address] [place] [address] Confirmed HL Plain Stress Test 11/14/2023 06:00 AM EDT [facility] [phone] Confirmed Echo - Echocardiogram Adult 11/14/2023 09:00 AM EDT [facility] [phone] Confirmed PC OV 11/16/2023 10:30 AM EDT REHANA CEJA [facility] Confirmed Follow Up Appointments Follow Up with LINNEA SILVERIO When:Within 5 to 7 days Where:[address] [facility] [place] [address] [phone] Additional Information: new onset of heart failure [...] withyour home medications. What How Much When Why [...] of cholesterol and fat (plaque) in the arteriesof the heart. Heart attack, also called myocardial [...] This condition is also more likely to developin people who: Are overweight. Are male. Smoke [...] 02/07/2006 Document Revised: 04/27/2019 Document Reviewed: 04/27/2019 [employer] Patient Education 2020 [employer] Inc. Nonspecific Chest Pain Chest pain can [...] Follow these instructions at home: Medicines Take ismb-vpk-agnoayz and prescription medicines only as told by your doctor. If you were prescribed an antibiotic medicine, take it as told by your doctor. Do not stop taking the antibiotic even if you start to feel better. Lifestyle Rest as told by your doctor. Do not use any products that contain nicotine or tobacco, such as cigarettes, e- cigarettes, and chewing tobacco. If you need help quitting, ask your doctor. Do not drink alcohol. Make lifestyle changes as told by your doctor. These may include: ? Getting regular exercise. Ask your doctor what activities are safe for you. ? Eating a heart-healthy diet. A diet and speech language specialist (dietitian) can help you to learn healthy [...] 07/26/2008 Document Revised: 08/10/2018 Document Reviewed: 08/10/2018 SpectraRep Patient Education 2020 Spect[employer]Rep Inc. Additional Information VACCINATE! IT SAVES LIVES! Members of the community who have not yet received the COVID-19 vaccine and would like to receive it can visit one of [facility] vaccine clinics. There are many vaccine clinic locations within the [facility]. For locations and available times, please visit [email or web address].[place].gov/. It is important to note that some COVID mobile vaccine clinics are held outdoors and may be canceled in rainy or stormy conditions. To learn more about pediatric vaccinations (ages 5-11), we invite you to visit the [facility] webpage. https://www.[email or web address].org/pages/1823-Qarzk-Fyupazzbrau-Qouxxywfvi-Lyroc-Mlw stions.htmlTo learn more about the COVID-19 vaccine, we invite you to visit the CDC website for a list of frequently asked questions.https://www.cdc.gov/coronavirus/2019-ncov/vaccines/faq.html [facility] Patient Portal Access Instructions: Stay connected with your healthcare team and access your personal medical information anytime with the [employer] Patient Portal. Please follow the directions below to create your [facility] account: 1.Access the email account you provided upon registration to the hospital/physician office.2.Look for an invitation email from [facility].3.Open the email and access the invitation link: AcceptInvitation to [employer].4.Fill in the required duckworth to create your account. To access your account, visit [employer]. Click the blue button labeled Access Patient Portal and then log in with the username and password that you created in the steps above. You will be able to view your test results, lab results, a summary of your visits, upcoming appointments and more. There is also a convenient messaging option where you can send secure messages to your SafeBootder. In addition, you will have the ability to download any documents or summaries to your computer and/or send the information securely to a physician. Remember that your healthcare information is confidential, so carefully consider who you will allowto register on the [facility] Patient Portal for access to your information. You can also access the [facility] Patient Portal on the [employer] [facility]where simona. Simply click on Patient Portal and then log into your account. If you would like to receive a full copy of your medical records, please contact the [facility] Medical Records Department by calling [phone], Tuesday through Tuesday between 8 a.m. and [...] Call your local pharmacy or go to [email or web address]/[email or web address] to find one close to you.3.Make use of household items: Use cat litter or old coffee grounds to dispose medications if other options arenot available. Mix your drugs with these household products, seal them in an airtight container andthrow it into the garbage. Call [facility]: [phone] to be sure your drugs can be [...] Heart Failure, Diagnosis Nonspecific Chest Pain, Adult, Nbia-rv-Ucgy Medication Leaflets My discharge plan and instructions have been reviewed and explained to me and I,TEODORA GRIFFITH understand my current condition and have read and understand these discharge instructions. I have received a written copy of the plan/instructions. If I have questions, I am aware that I should contactmy doctor. Patient/Manager Transfer Signature: Date/Time: Relationship to Patient: Witness Name/Signature: Date/Time: [facility]09-10-2024 Evaluation + Plan noteExtracted from: Title:History and Physical Author:ALESHIA BEDOLLA APRN-THOR Date:11/01/23 1. Chest discomfort Acute, new onset [...] was discussed with collaborating physician, Dr. Cayetano Kuhn. 75 minutes spent reviewing past diagnostic tests, reviewing lab results, vital sign trends, medical history, reviewing medications and ordering home medications, examining patient, discussed plan of care with care team, collaborating with physician, and documenting in chart. Future Appointments Appointment Date:11/02/2023 09:30:00 AM Scheduled Provider:RADHA PADRON Location:[facility] Appointment Type:PC OV Appointment Date:11/14/2023 06:00:00 AM Scheduled Provider: Location:[facility] Appointment Type:HL Plain Stress Test Appointment Date:11/14/2023 09:00:00 AM Scheduled Provider: Location:[facility] Appointment Type:Echo - Echocardiogram Adult Appointment Date:11/16/2023 10:30:00 AM Scheduled Provider:REHANA CEJA Location:[facility] Appointment Type:PC OV [facility] 09-10-2024 Note* Exam Date Time Procedure Performing Provider Status 11/01/23 12:01 PM Echocardiogram, Adult - CV Auth (Verified) [facility] 09-10-2024 Note ORIGINAL NM MYOCARDIAL SPECT [...] Sign Date: 11/01/2023 4:28:18 PM Ordering Provider:Aleshia [facility]09-10-2024 Note Date of Service 11/01/2023 Chief Complaint Patient states that he was recently diagnosed with high blood pressure and started on medication a week ago but is still experiencing high blood pressure. History of Present Illness Patient is a 58-year-old male, who follows with Rehana Ceja CNP with a past medical history significant for hypertension, GERD and tobacco use, presented to [facility] emergency department with the chief complaint [...] The case was discussed with the ED phy sician who recommended admission for stress test [...] will likely need to be transferred to [facility] for cardiology consult. All questions answered. [...] Result Date: October 31, 2023 Verified By: KWESI LUIS, FRANCO Gonzalez CLINICAL STATEMENT: IMPRESSION: No acute radiographic findings. [...] was discussed with collaborating physician, Dr. Cayetano Kuhn. 75 minutes spent reviewing past diagnostic tests, [...] smoker Alcohol Use: Never., 11/20/2018 Home/Environment 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 [...] by ALESHIA BEDOLLA on 11/01/2023 09:42 AM [facility]09-09-2024 Note ORIGINAL EXAMINATION: ONE XRAY VIEW [...] Date: 10/31/2023 2:41:37 PM Ordering [facility] NoteSinus rhythm Borderline T abnormalities, inferior leads Baseline wander in lead(s) V1 S1Q3T3 EKG interpretation is noted and agreed to in [employer]. The interpretation of this patient's EKG contributed directly to the care and management of this patient. Electronic Signature: MEGANALISA ALAN [facility] Note ORIGINAL EXAMINATION: TWO XRAY VIEWS OF THE CHEST 10/25/2023 9:34 am COMPARISON: Chest x-ray June 23, 2022 HISTORY: ORDERING SYSTEM PROVIDED HISTORY: Reason for Exam: Shortness of breath with possible UT yesterday morning per patient. FINDINGS: The heart [...] Bowen Borges MD Preliminary Report By: Adan Daniel Electronically signed By Bowen Borges MD Dictated Date: 10/25/2023 10:02:46 AM Prelim Date: 10/25/2023 11:57:37 AM Sign Date: 10/25/2023 11:57:37 AM Ordering Provider: [facility]06-22-2023 Evaluation + Plan noteExtracted from: Title:Office Visit Note Author:BARNEY ALVAREZ MD Date:08/12/22 Orders: Lactated Ringers Infusion 1,000 mL, Start: 08/12/22 9:57:00 EDT, Rate: 20 mL/hr, 08/12/22 9:57:00 EDT Communication Order (scheduled) Communication Order (scheduled) Communication Order (scheduled) Consult to Anesthesia Sign Consent He is here for screening colonoscopy. Consent conference held. Future Appointments Appointment Date:09/13/2022 07:00:00 PM Scheduled Provider: Location:[facility] Appointment Type: Home Studies [facility] 06-22-2023 Hospital Discharge instructions Patient Education [...] a slower pace than normal. ?Eat soft, rscv-qz-vybgxs foods. Take nvql-aqx-fwnyxdl or prescription medicines only as told by [...] 09/21/2004 Document Revised: 11/30/2017 Document Reviewed: 04/20/2016 SpectraRep Patient Education 2020 [employer]. 08/12/2022 11:42:52 Monitored Anesthesia Care, Care After [...] before eating solid foods. General instructions Take wfwr-qkc-oquyyby and prescription medicines only as told by [...] 05/30/2016 Document Revised: 05/08/2018 Document Reviewed: 05/30/2016 SpectraRep Patient Education 2020 SpectraRep Inc. Follow Up Care 07/28/2022 14:01:44 With:BARNEY ALVAREZ Address: [address] [place] [address] [phone] Business (1) When: Unknown Comments:YOU WILL NOT NEED ANOTHER COLONOSCOPY FOR 10 YEARS.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 11/15/24 07:53) Anaphylaxis PFSH Medical History TIA (transient ischemic attack) Migraine headache Hernia, hiatal Recurrent right inguinal hernia Left carpal tunnel syndrome Bilateral knee pain Former smoker Obesity (BMI 30.0-34.9) Incisional hernia Hypokalemia Atypical chest pain Iron deficiency anemia Elevated PSA GERD (gastroesophageal reflux disease) Essential (primary) hypertension Lightheadedness SOB (shortness of breath) Osteoarthritis of left knee Left knee pain Arthritis Restless legs Chewing tobacco nicotine dependence Surgical History Hx of appendectomy Hx of arthroscopy of shoulder Hx of inguinal hernia repair H/O hand surgery Family History Mother Heart disease Diabetes Hypertension Father Cancer Kidney disease Heart disease Social History (Updated 08/16/24 @ 08:34 by Evita Hill) household members: spouse current occupational status: employed 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 pets and animals: Yes pets and animals: dog(s) Smoking Status: Former smoker Smokeless tobacco user: chewing tobacco Electronic Cigarette Use: not used alcohol intake: never substance use type: does not use caffeine: Yes Type: carbonated beverages do you feel safe at home: Yes Coding Level of Care Code Off vis,est,level 4 Diagnoses TIA (transient ischemic attack) G45.9 Migraine without aura and without status migrainosus, not intractable G43.009 Intractability: not intractable Migraine type: migraine (< 15 days per month) without aura Status migrainosus presence: without status migrainosus Memory loss R41.3 Insomnia G47.00 11/17/24 0725 <Electronically signed by Salazar oviedo MD> Date _ Salazar Ward MD Cosigner Signature: Date (if applicable) CC: ~ [facility] Work Phone: Reason for referral (narrative)No reason for referral information availableWTrumb[facility] Work Phone: Chief Complaint and Reason for Visit Chief Complaint ABD PAIN Chief Complaint ABD PAIN R Inguinal Hernia/ER F/U LAP ROBOTIC ING HERNIA MESH RT POSS BILAT LAP ROBOTIC ING HERNIA MESH RT POSS BILAT Reason for Visit Recurrent right ingu inal hernia Chief Complaint Admit Date TIA, NEAR SYNCOPE July 24, 2024 11:28 pm TIA, NEAR SYNCOPE July 25, 2024 7:06a m TIA, NEAR SYNCOPE July 26, 2024 7:15a m Reason for Visit Admit Date Amnesia July 24, 2024 11:28 pm TIA (transient ischemic attack) July 11:28pm Chief Complaint Admit Date TIA, NEAR SYNCOPE July 24, 2024 11:28 pm Reason for Visit Admit Date TIA (transient ischemic attack) July 11:28pm Chief Complaint Admit Date TIA, NEAR SYNCOPE July 24, 2024 11:28 pm TIA, NEAR SYNCOPE July 25, 2024 7:06a m TIA, NEAR SYNCOPE July 26, 2024 7:15a m CVA August 01, 2024 9:40 am TIA (neurology) August 16, 2024 8:28 am Reason for Visit Admit Date Amnesia July 24, 2024 11:28 pm TIA (transient ischemic attack) July 11:28pm Transient ischemia August 16, 2024 8:28 am Chief Complaint Admit Date TIA, NEAR SYNCOPE July 24, 2024 11:28 pm TIA, NEAR SYNCOPE July 25, 2024 7:06a m TIA, NEAR SYNCOPE July 26, 2024 7:15a m DAY MONITOR August 01, 2024 9:00 am CVA August 01, 2024 9:40 am TIA (neurology) August 16, 2024 8:28 am 3 M FU November 15, 2024 7:49am EORDERS November 15, 2024 8:48am Reason for Visit Admit Date TIA (transient ischemic attack) July 11:28pm Amnesia July 24, 2024 11:28 pm Facial paresthesia August 16, 2024 8:28 am Migraine headache August 16, 2024 8:28 am TIA (transient ischemic attack) July 8:28am Insomnia November 15, 2024 7:49am Memory loss November 15, 2024 7:49am Migraine headache November 15, 2024 7:49am TIA (transient ischemic attack) Septembe r 2024 7:49am Advance Directives No Advanced Directives Records Found Advance Directive Response Recorded Date/ Time Living Will No December 28 12:07pm Power of Underwriting Clerks Supervisor No December 28, 2021 12:07pm Advance Directive Response Recorded Date/ Time Living Will No February 11 1:58pm Power of Underwriting Clerks Supervisor No February 11, 2022 1:58pm Advance Directive Response Recorded Date/ Time Do you have a Healthcare Power of Underwriting Clerks Supervisor? No July 25, 2024 1:44am Advance Directive Response Recorded Date/ Time Do you have a Healthcare Power of Underwriting Clerks Supervisor? No July 24, 2024 9:18pm Summary Purpose Family History Relationship Condition Age at Onset Recorded Date/T familia mother Cardiac disease Unknown Diabetes mellitus Unknown Hypertension Unknown father Malignant neoplasm Unknown Kidney disorder Unknown Cardiac disease Unknown No Family History Records Found Additional Source Comments Care Team (unrecognized sect ion and content) Care Team Personnel Name: BOB ROBERTSON APRN-THOR Position: P4 Advanced Practice Nurse Med Service: Active Provider Member Role: Primary Care Physician Address: Address: [address] [place] [address] Care Team Related Persons Name: VELIA GRIFFITH Goals (unrecognized section and content) Type Treatment Intervention Code Status: Full Code - Verified Goals may be documented in an alternate section Patient Care team informatio n (unrecognized section and content) Team Status: Active Member Role Status Dates Rehana Ceja NP, PHARMACOGENETICIST-C Primary Care Provider Active Team Status: Inactive Member Role Status Dates Dr. Geronimo Morales DO Emergency Provider Activ e Start: July 24, 2024 End: July 26, 2024 Rehana Ceja NP, PHARMACOGENETICIST-C Primary Care Provider Active Start: July 24, 2024 End: July 26, 2024 Dr. Ileana Minaya MD Admit Provider Active St art: July 24, 2024 End: July 26, 2024 Dr. Ileana Minaya MD Other Provider Active St art: July 24, 2024 End: July 26, 2024 Dr. Olivier Aleman DO Attending Provider Active Start: July 24, 2024 End: July 26, 2024 Dr. Ankur Del Toro MD Other Provider Active Start: July 24, 2024 End: July 26, 2024 Dr. Nancy Rosenbaum MD Other Provider Active Start: July 24, 2024 End: July 26, 2024 Joanna Perdomo MD Other Provider Active Start : July 24, 2024 End: July 26, 2024 Harman Osborne MS Other Provider Active Start: J une 2024 End: July 26, 2024 Dr. Tonny Benitez MD Other Provider Active Sta rt: July 24, 2024 End: July 26, 2024 Bart Pryor MD Other Provider Active Start: July 24, 2024 End: July 26, 2024 NIRMAL CARVAJAL MD Other Provider Active Start: J une 2024 End: July 26, 2024 Anel Simental MD Other Provider Active Start : July 24, 2024 End: July 26, 2024 Dr. Ara Thapa MD Other Provider Active Start : July 24, 2024 End: July 26, 2024 Ashkan Adamson MD Other Provider Active Start: July 24, 2024 End: July 26, 2024 Breana Maciel MD Other Provider Active Start: July 24, 2024 End: July 26, 2024 Sergei Luu MD Other Provider Active Start: 2024 End: July 26, 2024 Jeanne Haq MD Other Provider Active Start : July 24, 2024 End: July 26, 2024 Dr. Niurka Mcdonald DO Other Provider Active St art: July 24, 2024 End: July 26, 2024 Dr. Paulo Dinero MD Other Provider Active Sta rt: July 24, 2024 End: July 26, 2024 Dr. Tessa Steiner MD Other Provider Active Start : July 24, 2024 End: July 26, 2024 Dr. Enio David MD Other Provider Active Start: July 24, 2024 End: July 26, 2024 Dr. Randall Monroe MD Other Provider Active Start : July 24, 2024 End: July 26, 2024 Dr. Alexandro Reddy MD Other Provider Active St art: July 24, 2024 End: July 26, 2024 Dr. Roxanna De Souza MD Other Provider Active Sta rt: July 24, 2024 End: July 26, 2024 Dr. Kenyon Santos MD Other Provider Active Start: July 24, 2024 End: July 26, 2024 Dr. Joir Fam MD Other Provider Active St art: July 24, 2024 End: July 26, 2024 Dr. Lisa Jimenez MD Other Provider Active Star t: July 24, 2024 End: July 26, 2024 Dr. Luis Frausto MD Other Provider Active St art: July 24, 2024 End: July 26, 2024 Dr. Chhaya Lutz MD Other Provider Active Start: July 24, 2024 End: July 26, 2024 Christos Kim MD Other Provider Active Start: July 24, 2024 End: July 26, 2024 Team Status: Active Member Role Status Dates Dr. Geronimo Morales DO Emergency Provider Activ e Start: July 25, 2024 Rehana Ceja PHARMACOGENETICIST, PHARMACOGENETICIST-C Primary Care Provider Active Start: July 25, 2024 Dr. Ileana Minyaa MD Admit Provider Active St art: July 25, 2024 Dr. Ileana Minaya MD Other Provider Active St art: July 25, 2024 Dr. Olivier Aleman DO Attending Provider Active Start: July 25, 2024 Dr. Olivier Aleman DO Other Provider Active Star t: July 25, 2024 Dr. Ankur Del Toro MD Other Provider Active Start: July 25, 2024 Dr. Nancy Rosenbaum MD Other Provider Active Start: July 25, 2024 Joanna Perdomo MD Other Provider Active Start : July 25, 2024 Harman Osborne MS Other Provider Active Start: J une 2024 Dr. Tonny Benitez MD Other Provider Active Sta rt: July 25, 2024 Bart Pryor MD Other Provider Active Start: July 25, 2024 NIRMAL CARVAJAL MD Other Provider Active Start: J une 2024 Anel Simental MD Other Provider Active Start : July 25, 2024 Dr. Ara Thapa MD Other Provider Active Start : July 25, 2024 Ashkan Adamson MD Other Provider Active Start: July 25, 2024 Breana Maciel MD Other Provider Active Start: July 25, 2024 Sergei Luu MD Other Provider Active Start: 2024 Jeanne Haq MD Other Provider Active Start : July 25, 2024 Dr. Niurka Mcdonald DO Other Provider Active St art: July 25, 2024 Dr. Paulo Dinero MD Other Provider Active Sta rt: July 25, 2024 Dr. Tessa Steiner MD Other Provider Active Start : July 25, 2024 Dr. Enio David MD Other Provider Active Start: July 25, 2024 Dr. Randall Monroe MD Other Provider Active Start : July 25, 2024 Dr. Alexandro Reddy MD Other Provider Active St art: July 25, 2024 Dr. Roxanna De Souza MD Other Provider Active Sta rt: July 25, 2024 Dr. Kenyon Santos MD Other Provider Active Start: July 25, 2024 Dr. Jori Fam MD Other Provider Active St art: July 25, 2024 Dr. Lisa Jimenez MD Other Provider Active Star t: July 25, 2024 Dr. Luis Frausto MD Other Provider Active St art: July 25, 2024 Dr. Chhaya Lutz MD Other Provider Active Start: July 25, 2024 Christos Kim MD Other Provider Active Start: July 25, 2024 Team Status: Active Member Role Status Dates Rehana Ceja NP, PHARMACOGENETICIST-C Primary Care Provider Active Start: July 25, 2024 Dr. Omar Medina MD Attending Provider Active Start: July 25, 2024 Team Status: Active Member Role Status Dates Dr. Geronimo Morales DO Emergency Provider Activ e Start: July 26, 2024 Rehana Ceja PHARMACOGENETICIST, PHARMACOGENETICIST-C Primary Care Provider Active Start: July 26, 2024 Dr. Ileana Minaya MD Admit Provider Active St art: July 26, 2024 Dr. Ileana Minaya MD Other Provider Active St art: July 26, 2024 Dr. Olivier Aleman DO Attending Provider Active Start: July 26, 2024 Dr. Olivier Aleman DO Other Provider Active Star t: July 26, 2024 Dr. Ankur Del Toro MD Other Provider Active Start: July 26, 2024 Dr. Nancy Rosenbaum MD Other Provider Active Start: July 26, 2024 Joanna Perdomo MD Other Provider Active Start : July 26, 2024 Harman Osborne MS Other Provider Active Start: 2024 Dr. Tonny Benitez MD Other Provider Active Sta rt: July 26, 2024 Bart Pryor MD Other Provider Active Start: July 26, 2024 NIRMAL CARVAJAL MD Other Provider Active Start: J une 2024 Anel Simental MD Other Provider Active Start : July 26, 2024 Dr. Ara Thapa MD Other Provider Active Start : July 26, 2024 Ashkan Adamson MD Other Provider Active Start: July 26, 2024 Breana Maciel MD Other Provider Active Start: July 26, 2024 Sergei Luu MD Other Provider Active Start: 2024 Jeanne Haq MD Other Provider Active Start : July 26, 2024 Dr. Niurka Mcdonald DO Other Provider Active St art: July 26, 2024 Dr. Paulo Dinero MD Other Provider Active Sta rt: July 26, 2024 Dr. Tessa Steiner MD Other Provider Active Start : July 26, 2024 Dr. Enio David MD Other Provider Active Start: July 26, 2024 Dr. Randall Monroe MD Other Provider Active Start : July 26, 2024 Dr. Alexandro Reddy MD Other Provider Active St art: July 26, 2024 Dr. Roxanna De Souza MD Other Provider Active Sta rt: July 26, 2024 Dr. Kenyon Santos MD Other Provider Active Start: July 26, 2024 Dr. Jori Fam MD Other Provider Active St art: July 26, 2024 Dr. Lisa Jimenez MD Other Provider Active Star t: July 26, 2024 Dr. Luis Frausto MD Other Provider Active St art: July 26, 2024 Dr. Chhaya Lutz MD Other Provider Active Start: July 26, 2024 Christos Kim MD Other Provider Active Start: July 26, 2024 Team Status: Active Member Role Status Dates Dr. Olivier Aleman DO Attending Provider Active Start: August 01, 2024 Dr. Olivier Aleman DO Referring Provider Active Start: August 01, 2024 Rehana Ceja PHARMACOGENETICIST, PHARMACOGENETICIST-C Primary Care Provider Active Start: August 01, 2024 Team Status: Inactive Member Role Status Dates Rehana Marcial PHARMACOGENETICIST, PHARMACOGENETICIST-C Primary Care Provider Active Start: August 16, 2024 End: August 16, 2024 Rehana Marcial PHARMACOGENETICIST, PHARMACOGENETICIST-C Referring Provider Active Start: August 16, 2024 End: August 16, 2024 Lida Rosenberg PHARMACOGENETICIST-C Attending Provider Active S tart: August 16, 2024 End: August 16, 2024 Team Status: Active Member Role Status Dates Dr. Geronimo Morales DO Emergency Provider Activ e Start: July 24, 2024 Rehana Ceja PHARMACOGENETICIST, PHARMACOGENETICIST-C Primary Care Provider Active Start: July 24, 2024 Dr. Ileana Minaya MD Admit Provider Active St art: July 24, 2024 Dr. Ileana Minaya MD Attending Provider Active Start: July 24, 2024 Dr. Ileana Minaya MD Other Provider Active St art: July 24, 2024 Team Status: Active Member Role/Relationship Status Dates Rehana Ceja PHARMACOGENETICIST, PHARMACOGENETICIST-C Primary care physician Active Team Status: Inactive Member Role/Relationship Status Dates Dr. Geronimo Morales DO Emergency Department Physician Active Start: July 24, 2024 End: July 26, 2024 Rehana Ceja PHARMACOGENETICIST, PHARMACOGENETICIST-C Primary care physician Active Start: July 24, 2024 End: July 26, 2024 Dr. Ileana Minaya MD Admitting physician Active Start: July 24, 2024 End: July 26, 2024 Dr. Ileana Minaya MD Nurse Practitioner Active Start: July 24, 2024 End: July 26, 2024 Dr. Olivier Aleman DO Attending physician Active Start: July 24, 2024 End: July 26, 2024 Dr. Ankur Del Toro MD Nurse Practitioner Active St art: July 24, 2024 End: July 26, 2024 Dr. Nancy Rosenbaum MD Nurse Practitioner Active St art: July 24, 2024 End: July 26, 2024 Joanna Perdomo MD Nurse Practitioner Active S tart: July 24, 2024 End: July 26, 2024 Harman Osborne MS Nurse Practitioner Active Star t: July 24, 2024 End: July 26, 2024 Dr. Tonny Benitez MD Nurse Practitioner Active Start: July 24, 2024 End: July 26, 2024 Bart Pryor MD Nurse Practitioner Active St art: July 24, 2024 End: July 26, 2024 NIRMAL CARVAJAL MD Nurse Practitioner Active Star t: July 24, 2024 End: July 26, 2024 Anel Simental MD Nurse Practitioner Active S tart: July 24, 2024 End: July 26, 2024 Dr. Ara Thapa MD Nurse Practitioner Active S tart: July 24, 2024 End: July 26, 2024 Ashkan Adamson MD Nurse Practitioner Active St art: July 24, 2024 End: July 26, 2024 Breana Maciel MD Nurse Practitioner Active Sta rt: July 24, 2024 End: July 26, 2024 Sergei Luu MD Nurse Practitioner Active Start : July 24, 2024 End: July 26, 2024 Jeanne Haq MD Nurse Practitioner Active S tart: July 24, 2024 End: July 26, 2024 Dr. Niurka Mcdonald DO Nurse Practitioner Active Start: July 24, 2024 End: July 26, 2024 Dr. Paulo Dinero MD Nurse Practitioner Active Start: July 24, 2024 End: July 26, 2024 Dr. Tessa Steiner MD Nurse Practitioner Active S tart: July 24, 2024 End: July 26, 2024 Dr. Enio David MD Nurse Practitioner Active St art: July 24, 2024 End: July 26, 2024 Dr. Randall Monroe MD Nurse Practitioner Active S tart: July 24, 2024 End: July 26, 2024 Dr. Alexandro Reddy MD Nurse Practitioner Active Start: July 24, 2024 End: July 26, 2024 Dr. Roxanna De Souza MD Nurse Practitioner Active Start: July 24, 2024 End: July 26, 2024 Dr. Kenyon Santos MD Nurse Practitioner Active Start: July 24 End: July 26, 2024 Dr. Jori Fam MD Nurse Practitioner Active Start: July 24, 2024 End: July 26, 2024 Dr. Lisa Jimenez MD Nurse Practitioner Active Start: July 24, 2024 End: July 26, 2024 Dr. Luis Frausto MD Nurse Practitioner Active Start: July 24, 2024 End: July 26, 2024 Dr. Chhaya Lutz MD Nurse Practitioner Active St art: July 24, 2024 End: July 26, 2024 Christos Kim MD Nurse Practitioner Active St art: July 24, 2024 End: July 26, 2024 Team Status: Active Member Role/Relationship Status Dates Dr. Geronimo Morales DO Emergency Department Physician Active Start: July 25, 2024 Rehana Ceja PHARMACOGENETICIST, PHARMACOGENETICIST-C Primary care physician Active Start: July 25, 2024 Dr. Ileana Minaya MD Admitting physician Active Start: July 25, 2024 Dr. Ileana Minaya MD Nurse Practitioner Active Start: July 25, 2024 Dr. Olivier Aleman DO Attending physician Active Start: July 25, 2024 Dr. Olivier Aleman DO Nurse Practitioner Active Start: July 25, 2024 Dr. Ankur Del Toro MD Nurse Practitioner Active St art: July 25, 2024 Dr. Nancy Rosenbaum MD Nurse Practitioner Active St art: July 25, 2024 Joanna Perdomo MD Nurse Practitioner Active S tart: July 25, 2024 Harman Osborne MS Nurse Practitioner Active Star t: July 25, 2024 Dr. Tonny Benitez MD Nurse Practitioner Active Start: July 25, 2024 Bart Pryor MD Nurse Practitioner Active St art: July 25, 2024 NIRMAL CARVAJAL MD Nurse Practitioner Active Star t: July 25, 2024 Anel Simental MD Nurse Practitioner Active S tart: July 25, 2024 Dr. Ara Thapa MD Nurse Practitioner Active S tart: July 25, 2024 Ashkan Adamson MD Nurse Practitioner Active St art: July 25, 2024 Breana Maciel MD Nurse Practitioner Active Sta rt: July 25, 2024 Sergei Luu MD Nurse Practitioner Active Start : July 25, 2024 Jeanne Haq MD Nurse Practitioner Active S tart: July 25, 2024 Dr. Niurka Mcdonald DO Nurse Practitioner Active Start: July 25, 2024 Dr. Paulo Dinero MD Nurse Practitioner Active Start: July 25, 2024 Dr. Tessa Steiner MD Nurse Practitioner Active S tart: July 25, 2024 Dr. Enio David MD Nurse Practitioner Active St art: July 25, 2024 Dr. Randall Monroe MD Nurse Practitioner Active S tart: July 25, 2024 Dr. Alexandro Reddy MD Nurse Practitioner Active Start: July 25, 2024 Dr. Roxanna De Souza MD Nurse Practitioner Active Start: July 25, 2024 Dr. Kenyon Santos MD Nurse Practitioner Active Start: July 25 Dr. Jori Fam MD Nurse Practitioner Active Start: July 25, 2024 Dr. Lisa Jimenez MD Nurse Practitioner Active Start: July 25, 2024 Dr. Luis Frausto MD Nurse Practitioner Active Start: July 25, 2024 Dr. Chhaya Lutz MD Nurse Practitioner Active St art: July 25, 2024 Christos Kim MD Nurse Practitioner Active St art: July 25, 2024 Team Status: Active Member Role/Relationship Status Dates Rehana Ceja PHARMACOGENETICIST, PHARMACOGENETICIST-C Primary care physician Active Start: July 25, 2024 Dr. Omar Medina MD Attending physician Active Start: July 25, 2024 Team Status: Active Member Role/Relationship Status Dates Dr. Geronimo Morales DO Emergency Department Physician Active Start: July 26, 2024 Rehana Ceja PHARMACOGENETICIST, PHARMACOGENETICIST-C Primary care physician Active Start: July 26, 2024 Dr. Ileana Minaya MD Admitting physician Active Start: July 26, 2024 Dr. Ileana Minaya MD Nurse Practitioner Active Start: July 26, 2024 Dr. Olivier Aleman DO Attending physician Active Start: July 26, 2024 Dr. Olivier Aleman DO Nurse Practitioner Active Start: July 26, 2024 Dr. Ankur Del Toro MD Nurse Practitioner Active St art: July 26, 2024 Dr. Nancy Rosenbaum MD Nurse Practitioner Active St art: July 26, 2024 Joanna Perdomo MD Nurse Practitioner Active S tart: July 26, 2024 Harman Osborne MS Nurse Practitioner Active Star t: July 26, 2024 Dr. Tonny Benitez MD Nurse Practitioner Active Start: July 26, 2024 Bart Pryor MD Nurse Practitioner Active St art: July 26, 2024 NIRMAL CARVAJAL MD Nurse Practitioner Active Star t: July 26, 2024 Anel Simental MD Nurse Practitioner Active S tart: July 26, 2024 Dr. Ara Thapa MD Nurse Practitioner Active S tart: July 26, 2024 Ashkan Adamson MD Nurse Practitioner Active St art: July 26, 2024 Breana Maciel MD Nurse Practitioner Active Sta rt: July 26, 2024 Sergei Luu MD Nurse Practitioner Active Start : July 26, 2024 Jeanne Haq MD Nurse Practitioner Active S tart: July 26, 2024 Dr. Niurka Mcdonald DO Nurse Practitioner Active Start: July 26, 2024 Dr. Paulo Dinero MD Nurse Practitioner Active Start: July 26, 2024 Dr. Tessa Steiner MD Nurse Practitioner Active S tart: July 26, 2024 Dr. Enio David MD Nurse Practitioner Active St art: July 26, 2024 Dr. Randall Monroe MD Nurse Practitioner Active S tart: July 26, 2024 Dr. Alexandro Reddy MD Nurse Practitioner Active Start: July 26, 2024 Dr. Roxanna De Souza MD Nurse Practitioner Active Start: July 26, 2024 Dr. Kenyon Santos MD Nurse Practitioner Active Start: July 26 Dr. Jori Fam MD Nurse Practitioner Active Start: July 26, 2024 Dr. Lisa Jimenez MD Nurse Practitioner Active Start: July 26, 2024 Dr. Luis Frausto MD Nurse Practitioner Active Start: July 26, 2024 Dr. Chhaya Lutz MD Nurse Practitioner Active St art: July 26, 2024 Christos Kim MD Nurse Practitioner Active St art: July 26, 2024 Team Status: Active Member Role/Relationship Status Dates Reahna Ceja NP, PHARMACOGENETICIST-C Primary care physician Active Start: August 01, 2024 Dr. Himanshu Rollins MD Attending physician Acti ve Start: August 01, 2024 Dr. Olivier Aleman DO Referring Provider Active Start: August 01, 2024 Team Status: Active Member Role/Relationship Status Dates Dr. Olivier Aleman DO Attending physician Active Start: August 01, 2024 Dr. Olivier Aleman DO Referring Provider Active Start: August 01, 2024 Rehana Ceja PHARMACOGENETICIST, PHARMACOGENETICIST-C Primary care physician Active Start: August 01, 2024 Team Status: Inactive Member Role/Relationship Status Dates Rehana Ceja NP, PHARMACOGENETICIST-C Primary care physician Active Start: August 16, 2024 End: August 16, 2024 Rehana Ceja NP, PHARMACOGENETICIST-C Referring Provider Active Start: August 16, 2024 End: August 16, 2024 Lida Rosenberg NP-C Attending physician Active Start: August 16, 2024 End: August 16, 2024 Team Status: Inactive Member Role/Relationship Status Dates Rehana Ceja NP, PHARMACOGENETICIST-C Primary care physician Active Start: November 15, 2024 End: November 15, 2024 Rehana Ceja NP, PHARMACOGENETICIST-C Referring Provider Active Start: November 15, 2024 End: November 15, 2024 Dr. Salazar Ward MD Attending physician Active Start: November 15, 2024 End: November 15, 2024 Team Status: Active Member Role/Relationship Status Dates Rehana Ceja NP, PHARMACOGENETICIST-C Primary care physician Active Start: November 15, 2024 Dr. Salazar Ward MD Attending physician Active Start: November 15, 2024 Dr. Salazar Ward MD Referring Provider Active Start: November 15, 2024 (unrecognized sect ion and content) No Status Records FoundNo Status Records FoundNo Status Records Found INFORMATION SOURCE (unrecogn ized section and content) DATE CREATED AUTHOR 10/27/2023 [facility] ([place]) DATE CREATED AUTHOR AUTHOR'S ORGANIZ ATION 11/09/2024 [facility] DATE CREATED AUTHOR AUTHOR'S ORGANIZ ATION 01/01/2025 [facility] FOR RECORDS PERTAINING TO PATIENTS WHO ARE [...] BE BASED ON THE PRIMARY CLINICAL RECORDS. [facility]. provides no warranty or guarantee of the accuracy or completeness of information in this document.
--- NOTE | 2025-01-08 07:19 | MRI_ITS ---
PROCEDURE: LOWER EXT JOINT ONLY (ROUTINE) 01/08/2025 REASON FOR EXAM: ASSESS FOR MENISCUS TEARS, MILD OA TECHNIQUE: Procedure Code: MRILEJ Modality: MR Procedure: LOWER EXT JOINT ONLY (ROUTINE) T1, T2, PD, multiplanar and multisequence images were obtained of the left knee without IV contrast administration. COMPARISON: COMPARISON : None FINDINGS: Bone Marrow: There is a 0.5 cm developing osteochondral defect in the central portion of the lateral tibial plateau with no free fragment. Cruciate ligaments: There is a edema and attenuation throughout the anterior cruciate ligament without laxity, grade 2 sprain. The posterior cruciate appears intact. Collateral ligaments: The medial collateral ligament appears intact. The lateral collateral ligament complex appears intact. Menisci: There is a radial tear at the root of the medial meniscus with extrusion of the body. The lateral meniscus shows no focal tear. Extensor compartment: There is severe distal quadriceps tendinopathy without full-thickness tear. The patellar tendon appears intact. Cartilage: There is severe chondromalacia in the medial compartment, and in the central portion of the lateral compartment. Effusion: There is a small joint effusion. There is no significant Gentile's cyst. MRI/Lower Ext Joint Only (Routine) IMPRESSION: There is a 0.5 cm developing osteochondral defect in the central portion of the lateral tibial plateau with no free fragment. There is a edema and attenuation throughout the anterior cruciate ligament with out laxity, grade 2 sprain. There is a radial tear at the root of the medial meniscus with extrusion of the body. There is severe distal quadriceps tendinopathy without full-thickness tear. There is severe chondromalacia in the medial compartment, and in the central po rtion of the lateral compartment. Reading Location: [place]
== END | disposition home or self-care (01) ==
LOC: MRI 07:05
PROVIDERS: PCP Nurse Practitioner Family; Referring Provider Orthopaedic Surgery Sports Medicine; Visit Provider Orthopaedic Surgery Sports Medicine
DX: M25.562 Pain in left knee (principal)
CPT/HCPCS: 73721